=== PATIENT | female | born 1960 | race Caucasian/White ===

== ENCOUNTER 2023-03-27 02:06 | Inpatient (IN) | payer OTHER, SELFPAY ==
[2023-03-27] VITALS (46 sets, daily range): BP systolic 127–173; BP diastolic 72–98; PULSE 88–136; RESP 18–33; TEMP 36.8–37.5; O2SAT 89–100
--- NOTE | 2023-03-27 | ECHO_ITS ---
Patient Info Name: Carly Oliveira Age: 62 years : 1960 Gender: Female Ht: 67 in Wt: 106 lbs BSA: 1.49 m2 BP: 152 / 98 mmHg Heart Rhythm: Sinus Rhythm, Tachycardia Technical Quality: Fair Exam Date: 03/27/2023 2:44 PM Exam Location: Echo Lab Patient Status: Inpatient Admit Date: 03/27/2023 Staff Ordering Physician: Raj Metcalf MD Property Claims Adjuster: Lupe Jim RDCS Attending Provider: Felecai Ledezma DO Exam Type: CA echo doppler color flow Study Info Indications - elevated bnp Complete two-dimensional, color flow and Doppler transthoracic echocardiogram is performed. Summary 1. Complete two-dimensional, color flow and Doppler transthoracic echocardiogram is performed. 2. Technically difficult study. 3. Left ventricular chamber dimension is normal. 4. Left ventricular systolic function is normal, estimated at 55-60%. 5. There is no increased left ventricular wall thickness. 6. The left ventricular diastolic function is abnormal. 7. There is trace mitral valve regurgitation. 8. There is trace tricuspid valve regurgitation. 9. Mild pulmonary hypertension, estimated pulmonary arterial systolic pressure is 43 mmHg. Left Ventricle Left ventricular chamber dimension is normal. Left ventricular systolic function is normal, estimated at 55-60%. There is no increased left ventricular wall thickness. The left ventricular diastolic function is abnormal. Technically difficult study. Right Ventricle Right ventricular chamber dimension is normal. Right ventricular systolic function is normal. Left Atria Left atrial chamber dimension is normal. Right Atria Right atrial chamber dimension is normal. Aortic Valve The aortic valve is probable trileaflet. There is mild aortic valve sclerosis. There is no aortic valve stenosis. There is no aortic valve regurgitation. Pulmonic Valve The pulmonic valve is not well visualized. Mitral Valve The mitral valve has normal leaflets. There is trace mitral valve regurgitation. The mitral valve annulus is mildly calcified. Tricuspid Valve The tricuspid valve leaflets are normal. There is trace tricuspid valve regurgitation. Mild pulmonary hypertension, estimated pulmonary arterial systolic pressure is 43 mmHg. Pericardium/Pleural The pericardium appears normal. There is trivial pericardial effusion. Inferior Vena Cava Normal inferior vena cava with >50% collapse upon inspiration consistent with normal right atrial pressure, 5 mmHg. Aorta The aortic root size at the sinus of Valsalva is normal. There is mild aortic atherosclerosis. Left Ventricular Outflow Tract Name Value Normal LVOT 2D LVOT Diameter 1.8 cm LVOT Doppler LVOT Peak Gradient 3 mmHg LVOT Mean Gradient 1 mmHg LVOT VTI 12 cm LVOT VTI/AV VTI Ratio 0.6 LVOT Stroke Volume 30 ml LVOT CO 3.6 l/min LVOT CI 2.4 l/min/m2 Pulmonic Valve Name Value Normal ---
--- NOTE | ~2023-03-27 | XR_ITS ---
Portable chest x-ray Comparison: None Clinical History: Dyspnea Findings: Lungs are clear, without focal consolidation or pleural effusion. Suspected COPD. Cardiom ediastinal silhouette is unremarkable. Bones and soft tissues are unremarkable. Impression: Clear lungs. Probable COPD. Reviewed, dictated and finalized at [facility]. T SUPERVISOR FILM PROCESSING Impression: Clear lungs. Probable COPD.
--- NOTE | ~2023-03-27 | XR_ITS ---
EXAMINATION: XR chest 1V portable DATE: 03/30/2023 13:40 INDICATION: Shortness of breath. TECHNIQUE: A single frontal view of the chest was obtained. COMPARISON: Chest 03/28/23 FINDINGS: The lungs are hyperexpanded, consistent with chronic obstructive pulmonary disease. No pleu ral effusion or pneumothorax. The heart size is normal. There are old healed bilateral rib fractures. IMPRESSION: 1. Hyperexpanded lungs, consistent with chronic obstructive pulmonary disease. Reviewed, dictated and finalized at location A. COUNTER
--- NOTE | ~2023-03-27 | US_ITS ---
EXAMINATION: US right upper quadrant DATE: 03/27/2023 17:04 INDICATION: Right upper quadrant abdominal pain TECHNIQUE: Multiple grayscale and Doppler ultrasound images of the abdomen were obtained. COMPARISON: None FINDINGS: The pancreatic head and body are normal in appearance. The pancreatic tail is not visualized. Liver has normal echogenicity and contour, with a smooth surface. No liver lesion identified. No intrahepat ic biliary duct dilation suspected. Portal venous flow was seen in the hepatopetal, normal direction and has normal Doppler waveform. Atherosclerotic calcifications along the normal caliber proximal to mid abdominal aorta. The visualized proximal to mid inferior vena cava is normal. The gallbladder is normal in appearance. There is no shadowing cholelithiasis. Small amount of mobile echogenic non sha dowing sludge along the dependent gallbladder wall. The common bile duct measures 2 mm, which is norm al. Sonographic Pagan sign was reported as negative by the olericulture teacher.Right kidney measures 8.6 x 4 .7 x 5.3 cm with normal contour and echogenicity and no hydronephrosis. IMPRESSION: 1. Small amount of mobile sludge in the otherwise normal gallbladder. Reviewed, dictated and finalized at location A. OR MECHANICAL DEVELOPMENT ENGINEER
--- NOTE | ~2023-03-27 | XR_ITS ---
Portable chest x-ray Comparison: 03/27/2023 Clinical History: COPD exacerbation Findings: Probable small bilateral pleural effusions. COPD pattern present in the lungs. Cardiomedi astinal silhouette is stable. Bones and soft tissues are unremarkable. Impression: COPD. Probable small bilateral pleural effusions. Reviewed, dictated and finalized at [facility]. PHYSICIAN Impression: COPD. Probable small bilateral pleural effusions.
--- NOTE | 2023-03-27 02:17 | ECG_ITS ---
Measurements Intervals [place] Rate: 114 P: 81 FL: 126 QRS: 92 QRSD: 90 T: 12 QT: 290 QTc: 399 Interpretive Statements SINUS TACHYCARDIA RIGHT AXIS DEVIATION POSSIBLE RIGHT ATRIAL ENLARGEMENT BORDERLINE ST-T WAVE ABNORMALITY- INFERIOR LEADS BASELINE WANDER- I, II, III, AVL, AVF, V4-V6 ABNORMAL ECG NO PREVIOUS ECG AVAILABLE FOR COMPARISON Electronically Signed On 03-27-2023 7:01:27 PAPER SLITTER by Greg Vargas D.O.
[2023-03-27] MEDS: ALBUTEROL SULFATE NEB 2.5 MG/3 ML INH INHALATION ×4 (02:30→20:54)
[2023-03-27] MEDS: IPRATROPIUM BR 0.02% INH SOLN 0.5 MG/2.5 ML VIAL INHALATION ×4 (02:30→20:55)
[2023-03-27 02:37] LABS: Basophils Percent Auto 0.1 % (0.2-1.2); Hematocrit 42.8 % (37.0-47.0); Hemoglobin 12.2 g/dL (12.0-15.0); Immature Granulocyte Absolute 0.08 K/mm3 (0.00-0.031); Immature Granulocyte Percent A 0.8 % (0-0.5); Lymphocytes Absolute Auto 0.96 K/mm3 (0.9-3.2); Lymphocytes Percent Auto 9.7 % (18.3-44.2); Mean Corpuscular HGB Conc 28.5 g/dl (32-36); Mean Corpuscular Hemoglobin 28.4 pg (26-34); Mean Corpuscular Volume 99.8 fl (80-100); Mean Platelet Volume 9.8 fl (7.4-10.4); Monocytes Absolute Auto 1.3 K/mm3 (0.1-0.6); Monocytes Percent Auto 12.9 % (2.6-8.5); Neutrophils Absolute Auto 7.6 K/mm3 (1.3-6.7); Neutrophils Percent Auto 76.5 % (45.5-73.1); Platelet Count Result 269 k/mm3 (150-375); Red Blood Count 4.29 M/mm3 (4.2-5.4); Red Cell Distribution Width 12.6 % (11.5-14.5); White Blood Count 9.9 K/mm3 (4.5-10.0)
--- NOTE | 2023-03-27 02:40 | PC.NURSE ---
Respiratory in room to place patient on bipap.
--- NOTE | 2023-03-27 02:45 | ED.GENADULT ---
HPI - General Adult General Chief complaint: Shortness of Breath/Dyspnea Stated complaint: SOB Time Seen by Provider: 03/27/23 02:23 History of Present Illness HPI narrative: Patient is a 62-year-old female who presents emergency department with chief complaint of shortness of breath. Patient reports that she has prior history of COPD and reports that she has been getting progressively short of breath at home. The patient states that got worse this evening and reports that this evening when EMS arrived she was saturating in the 80s. The patient was placed on non-rebreather by EMS the patient was reported to have been admitted at [place] recently the ICU for a COPD exacerbation Related Data Home Medications Medication Instructions Recorded Confirmed albuterol sulfate 90 mcg/actuation 2 puff inhalation Q6H PRN sob 03/27/23 03/27/23 aerosol inhaler apixaban 5 mg tablet (Eliquis) 5 mg PO BID 03/27/23 03/27/23 atorvastatin 80 mg tablet 80 mg PO HS 03/27/23 03/27/23 budesonide 0.5 mg/2 mL suspension mg 03/27/23 for nebulization gabapentin 300 mg capsule 300 mg PO TID 03/27/23 03/27/23 losartan 50 mg tablet 50 mg PO DAILY 03/27/23 03/27/23 metoprolol succinate 50 mg 50 mg PO DAILY 03/27/23 03/27/23 tablet,extended release 24 hr venlafaxine 37.5 mg tablet 37.5 mg PO BID 03/27/23 03/27/23 Allergies Allergy/AdvReac Type Severity Reaction Status Date / Time Penicillins Allergy Other Verified 03/27/23 03:12 Review of Systems Review of Systems: A 10 system review of systems was completed on the patient and is negative except for what is stated in the HPI. Nursing and ancillary documentation was reviewed. Exam Narrative: GENERAL: Well-appearing, well-nourished, and in no acute distress. HEAD: Normocephalic, atraumatic. EYES: PERRLA and EOMI. ENT: Nares clear, no rhinorrhea or epistaxis. Mucous membranes moist. NECK: Supple. CHEST: Clear to auscultation. No respiratory distress. HEART: Regular rate and rhythm. No murmur heard. Normal peripheral pulses. ABDOMEN: Soft, nontender, nondistended, normal active bowel sounds. EXTREMITIES: Normal range of motion. No edema. SKIN: Warm, dry, no rash. NEURO: No focal deficits. Alert and oriented x3. PSYCH: Normal mood and affect. Course Vital Signs Vital signs: Vital Signs Pulse Rate 116 H 03/27/23 02:07 Respiratory Rate 28 H 03/27/23 02:07 Blood Pressure 158/90 H 03/27/23 02:07 Pulse Oximetry 100 03/27/23 02:07 Oxygen Delivery Non-Rebreather Mask 03/27/23 02:07 Oxygen Flow Rate 15 03/27/23 02:07 Temperature 36.8 C 03/27/23 05:01 Pulse Rate 135 H 03/27/23 06:24 Respiratory Rate 22 H 03/27/23 06:24 Blood Pressure 149/97 H 03/27/23 06:24 Pulse Oximetry 96 03/27/23 06:24 Oxygen Delivery BiPAP 03/27/23 05:13 Oxygen Flow Rate 15 03/27/23 02:16 Medical Decision Making MDM Narrative Medical decision making narrative: Differential diagnosis includes acute hypercapnic respiratory failure, Laboratory studies were obtained on the patient showed a pH of 7.197 with a pCO2 of 137 the patient was started on BiPAP and after 1 hour pH did improve somewhat to 7.202 and a pCO2 has come down to a 122 the patient's respiratory rate was increased on the AVAPS setting and the case was discussed with both the hospitalist and the political anthropologist. Vital Signs Vital Signs: Vital Signs Pulse Rate 116 H 03/27/23 02:07 Respiratory Rate 28 H 03/27/23 02:07 Blood Pressure 158/90 H 03/27/23 02:07 Pulse Oximetry 100 03/27/23 02:07 Oxygen Delivery Non-Rebreather Mask 03/27/23 02:07 Oxygen Flow Rate 15 03/27/23 02:07 Temperature 36.8 C 03/27/23 05:01 Pulse Rate 135 H 03/27/23 06:24 Respiratory Rate 22 H 03/27/23 06:24 Blood Pressure 149/97 H 03/27/23 06:24 Pulse Oximetry 96 03/27/23 06:24 Oxygen Delivery BiPAP 03/27/23 05:13 Oxygen Flow Rate 15 03/27/23 02:16 Lab Data 03/27/23 02:28
[2023-03-27 02:51] LABS: Lactic Acid Reflex 1.2 mmol/L (0.7-2.0)
[2023-03-27 02:53] LABS: INR 1.1; Partial Thromboplastin Time 31.6 SECONDS (22.3-36.8); Prothrombin Time 15.1 Seconds (11.1-14.7)
[2023-03-27 03:02] LABS: Alveolar/Arterial O2 Gradient 296.3 mmHg; Base Excess ABG 17.8 mEq/l (+/-2.0); Carboxyhemoglobin 0.5 % THb (0-2.0); Fractional Inspired Oxygen 100 %; HCO3 ABG 52.1 mEq/l (22.0-26.0); Methemoglobin ABG 0.4 %THb (0-1.5); Oxygen Content ABG 18.9 %vol (16.0-22.0); Oxygen Saturation ABG 99.4 % (95.0-100.0); Oxyhemoglobin 98.3 % THb (90.0-100.0); PO2 ABG 279.5 mmHg (80.0-100.0); Reduced Hemoglobin 0.8 %THb (0-5.0); Total Hemoglobin 13.2 g/dL (12.0-18.0)
[2023-03-27 03:03] LABS: NT Pro B Type Natriuretic Pept 999 pg/mL (19.9-100); Troponin I < 0.012 ng/mL (0.000-0.034)
[2023-03-27 03:07] LABS: PCO2 ABG 137.2 mmHg (35.0-45.0); pH ABG 7.197 (7.350-7.450)
[2023-03-27 03:08] LABS: Device NON-REBREATHER MASK; Site Drawn RIGHT BRACHIAL
[2023-03-27 03:08] LABS: Procalcitonin 0.1 ng/mL
[2023-03-27 03:13] LABS: Influenza A QL RT-PCR Negative (Negative); Influenza B QL RT-PCR Negative (Negative); RSV RNA, RT-PCR Negative (Negative); SARS-CoV-2 RNA PCR Negative (Negative)
[2023-03-27] MEDS: methylPREDNISolone SOD SUCC 125 MG VIAL IV PUSH (03:13)
[2023-03-27 03:20] LABS: Alanine Aminotransferase 20 U/L (6-35); Albumin Level 4.1 g/dL (3.5-5.1); Alkaline Phosphatase 89 U/L (38-126); Aspartate Amino Transferase 41 U/L (14-36); Bilirubin,Total 0.9 mg/dL (0.2-1.3); Blood Urea Nitrogen 29 mg/dL (7-17); Calcium 9.9 mg/dL (8.4-10.2); Carbon Dioxide > 40 mmol/L (22-30); Chloride 94 mmol/L (98-107); Estimated CRCL calculation 74 ml/min; Estimated Glomerular Filt Rate > 60; Glucose 166 mg/dL (65-110); Potassium 4.2 mmol/L (3.4-5.0); Sodium 147 mmol/L (137-145)
[2023-03-27] MEDS: LORazepam INJ (*CRX) 2 MG/ML VIAL 0.5 MG IV PUSH (03:51)
[2023-03-27 04:30] LABS: Alveolar/Arterial O2 Gradient 222.4 mmHg; Base Excess ABG 13.9 mEq/l (+/-2.0); Fractional Inspired Oxygen 65 %; HCO3 ABG 47.2 mEq/l (22.0-26.0); Oxygen Saturation ABG 96.2 % (95.0-100.0); Oxyhemoglobin 96.2 % THb (90.0-100.0); PO2 ABG 107.4 mmHg (80.0-100.0); PO2 FiO2 Ratio Arterial Blood 1.65 %; Total Hemoglobin 13.2 g/dL (12.0-18.0)
[2023-03-27 04:32] LABS: PCO2 ABG 122.9 mmHg (35.0-45.0); Site Drawn RIGHT BRACHIAL; pH ABG 7.202 (7.350-7.450)
[2023-03-27 04:33] LABS: Device NON-INVASIVE VENT; Non-Invasive Vent Rate 20 /MIN
--- NOTE | 2023-03-27 06:47 | ADMGEN ---
This patient, Carly Oliveira, was admitted to Intensive Care Unit-5. Patient/family oriented to hospital policies and general routines including ID bracelet, bed and alarms, visiting hours, pain management, procedures, bathroom and other care routines, personal items, smoking policy, room service/diet, and visiting hours. Information on how to activate the Rapid Response Team has been discussed. Patient/Family are encouraged to report perceived risks to care and to ask questions if they do not understand what they are told or what they should do.
[2023-03-27 07:05] LABS: Influenza A QL RT-PCR Negative (Negative); Influenza B QL RT-PCR Negative (Negative); RSV RNA, RT-PCR Negative (Negative); SARS-CoV-2 RNA PCR Negative (Negative)
--- NOTE | 2023-03-27 08:03 | WPDCNINT ---
Assessment and Plan Assessment and plan (1) Acute and chronic respiratory failure, unspecified whether with hypoxia or hypercapnia: Code(s): J96.20 - Acute and chronic respiratory failure, unspecified whether with hypoxia or hypercapnia Status: Acute Assessment and Plan: Acute on chronic hypercarbic and hypoxic respiratory failure secondary to COPD exacerbation Patient now on NIPPV with some improvement in her ABG. She is awake and protecting airway. Will continue AVAPS for now Repeat ABG later. Patient at risk of requiring intubation if does not improve or further deteriorate Chest x-ray reviewed and does not show any significant infiltrate. WBC is normal and she is afebrile. Obtain cultures and start azithromycin for COPD exacerbation Solu-Medrol, bronchodilators, PCR COVID flu and RSV negative (2) COPD exacerbation: Code(s): J44.1 - Chronic obstructive pulmonary disease with (acute) exacerbation Status: Acute Assessment and Plan: See above (3) Abnormal EKG: Code(s): R94.31 - Abnormal electrocardiogram [ECG] [EKG] Status: Acute Assessment and Plan: 1st troponin negative, patient denies any chest pain Check echocardiogram Continue serial troponin Patient is already anticoagulated and is on statin and beta-jessica will be continued (4) Sinus tachycardia: Code(s): R00.0 - Tachycardia, unspecified Status: Acute Assessment and Plan: Continue p.o. beta-jessica (5) Hypertension: Code(s): I10 - Essential (primary) hypertension Status: Acute Assessment and Plan: Continue beta-jessica losartan and add p.r.n. Lopressor (6) Atrial fibrillation: Code(s): I48.91 - Unspecified atrial fibrillation Status: Acute Assessment and Plan: Patient reports history of atrial fibrillation but currently in sinus tachycardia. Continue beta-jessica and Eliquis (7) Coronary disease: Code(s): I25.10 - Atherosclerotic heart disease of [place] coronary artery without angina pectoris Status: Acute Assessment and Plan: Patient reports history of coronary disease although unable to provide any details EKG reviewed Check troponins Continue anticoagulation statin beta-jessica and ARB Obtain records from [facility] Plan DVT prophylaxis -Eliquis Nutrition -NPO at this time Code Status - Full Code Total Critical Care Time -35 minutes Due to a high probability of clinically significant, life threatening deterioration, the patient required my highest level of preparedness to intervene emergently and I personally spent this critical care time directly and personally managing the patient. This critical care time included obtaining a history; examining the patient; pulse oximetry; ordering and review of studies; arranging urgent treatment with development of a management plan; evaluation of patient's response to treatment; frequent reassessment; and discussions with other providers. It was exclusive of separately billable procedures and treating other patients and teaching time. Please see Assessment and Plan section and the rest of the note for further information on patient assessment and treatment Cotton Opener Consult Note Consult date: 03/27/23 Reason for consult: Respiratory failure HPI: Carly Oliveira is a 62 year old female with past medical history of COPD presented for the 1st time at [facility] last night with chief complaint of shortness of breath from home. Reported that she has been getting progressively short of breath and when EMS brought her they found her to be hypoxic and hypercarbic on ABG. Patient initially was on non-rebreather and was switched to AVAPS. Patient now admitted to ICU on BiPAP mask and history is limited. She states she has been feeling short of breath for last 4 days. She wears for oxygen at home at 4 L and wears a CPAP or a BiPAP at night. She has been having cough with greenish sputum.
[2023-03-27] MEDS: AZITHROMYCIN 500 MG/NS 250 ML 500 MG/250 ML BAG 250 MG IVPB (08:23)
[2023-03-27] MEDS: APIXABAN 5 MG TABLET PO ×2 (08:23→17:01)
[2023-03-27] MEDS: methylPREDNISolone SOD SUCC 125 MG VIAL 60 MG IV PUSH (08:23)
[2023-03-27] MEDS: VENLAFAXINE HCL 37.5 MG TABLET PO ×2 (08:31→17:01)
[2023-03-27] MEDS: METOPROLOL SUCCINATE EXT REL 50 MG TABCR PO (08:31)
--- NOTE | 2023-03-27 09:38 | PM.IMHP ---
H&P: HPI History of Present Illness Date/Time: 03/27/23 09:38 Chief Complaint: Shortness of breath Narrative: 62yo female with COPD, CAD, chronic resp failure, AFib and HTN here for shortness of breath and found to have respiratory failure. Patient is alert and oriented but history is difficult; patient on bipap, patient appears confused about details of her hx. She wears 3L O2 at rest and 4L with activity. She does have VIK (?) and supposed to wear NIV at night but could not tolerate. She was recently hospitalized Jan-Feb time frame for 6 weeks. She is unclear why she was hospitalized but did require intubation and had cardiac arrest 'four times'. She was doing well up until 3-4 days ago when she developed shortness of breath and cough productive of green sputum. She developed fever and chills. She did not contact a health care provider and has not been on antibiotics. She has been using decongestions and increasing fluid intake. She takes neb treatments 3-4x/day chronically and no change when she was ill. She has had the PNA and Influenza vaccines. Also with episodes of choking and food sticking sensation but long standing and without change. No hx of CVA or seizures. Having nausea past few days but no vomiting or diarrhea. No dysuria or hemautia. No Chest pain. Her symptoms worsened and EMS contacted. No EMS record in the chart. By the notes, SpO2 80%'s. She was brought to the ED for evaluation. In the ED, she was tachycardia (116), tachypneic (28) and hypoxic (100% on NRBM). ABG 7.197/137/279 NRBM. BiPAP started with ABG 7.20/123/107. Influenza/RSV/COVD PCR negative. EKG sinus tach, RAD and possible JANE with borderline ST-T wave change inferior leads. CXR showing clear lungs and COPD. She was started on BiPAP. Nebs given. Solu-Medrol started. Azithromycin started. Review of Systems Review of Systems: All systems reviewed & are unremarkable except as noted in HPI and below PMFSH Past Medical History Medical History (Updated 03/27/23 @ 11:10 by Tyree Azevedo MD) Atrial fibrillation Chronic respiratory failure COPD (chronic obstructive pulmonary disease) Coronary disease Depression Hypertension PAD (peripheral artery disease) Surgical History Surgical History (Updated 03/27/23 @ 10:52 by Tyree Azevedo MD) Hx of peripheral artery bypass Family History Family History (Updated 03/27/23 @ 10:52 by Tyree Azevedo MD) Father Mesothelioma Mother Heart disease Social History Social History (Updated 03/27/23 @ 10:54 by Tyree Azevedo MD) Social History: Patient still smoking up to 3 cigarettes per day. No alcohol or drug use. Full code. Lives at home with son, dtr-in-law and grandchild. Full code. She nominates her son to be the one who would make medical decisions for her if she is unable. Smoking status: Light tobacco smoker Tobacco type: cigarettes Alcohol intake: never Substance use: never Substance use type: does not use Do You Feel Safe in your Home?: Yes Lack of Transportation: No Lack of Food: Never True Current Housing: I Have Housing Concerned About Future Housing: Decline to Answer Difficulty Paying Gas/Electric Bills: Decline to Answer Difficulty Paying for Meds: Decline to Answer Currently Unemployed: Decline to Answer Education: High School Diploma/GED Difficulty w/ Childcare or Family Care: Decline to Answer Spiritual care concerns: No Meds Home Medications and Allergies Home Medications Medication Instructions Recorded Confirmed Type albuterol sulfate 90 mcg/actuation 2 puff inhalation Q6H PRN sob 03/27/23 03/27/23 History aerosol inhaler apixaban 5 mg tablet (Eliquis) 5 mg PO BID 03/27/23 03/27/23 History atorvastatin 80 mg tablet 80 mg PO HS 03/27/23 03/27/23 History budesonide 0.5 mg/2 mL suspension 0.5 mg inhalation BID 03/27/23 03/27/23 History for nebulization gabapentin 300 mg capsule 300 mg PO TID 03/27/23 03/27/23 History los
[2023-03-27] MEDS: ASPIRIN 325 MG ENTERIC TABLET PO (09:41)
[2023-03-27 11:16] LABS: Appearance Urine Clear (Clear); Bacteria Urine None Seen /hpf; Bilirubin Urine Negative (Negative); Blood Urine 2+ (Negative); Color Urine Yellow (Yellow); Glucose Urine UA Negative (Negative); Granular Casts Urine Present /lpf; Hyaline Casts Urine Present /lpf; Ketones Urine 1+ mg/dL (Negative); Leukocyte Esterase Ur Negative LEU/UL (Negative); Nitrate Urine Negative (Negative); Protein Urine 2+ mg/dL (Negative); Specific Grav Ur 1.016 (1.001-1.035); Squamous Epithelial Cell Urine Few /hpf (Few); Transitional Epi Cells Urine Present /hpf (None Seen); WBC Urine 0-5 /hpf
[2023-03-27 11:17] LABS: Add Urine Microscopic? YES
[2023-03-27 11:21] LABS: Alveolar/Arterial O2 Gradient 70.6 mmHg; Base Excess ABG 12.6 mEq/l (+/-2.0); Fractional Inspired Oxygen 30 %; HCO3 ABG 39.6 mEq/l (22.0-26.0); Oxygen Content ABG 16.5 %vol (16.0-22.0); Oxygen Saturation ABG 93.7 % (95.0-100.0); Oxyhemoglobin 93.6 % THb (90.0-100.0); PO2 ABG 69.6 mmHg (80.0-100.0); PO2 FiO2 Ratio Arterial Blood 2.32 %; Total Hemoglobin 12.5 g/dL (12.0-18.0); pH ABG 7.418 (7.350-7.450)
[2023-03-27 11:31] LABS: Device NON-INVASIVE VENT; Modified Allen's Test Pass; PCO2 ABG 62.7 mmHg (35.0-45.0); Site Drawn RIGHT RADIAL
[2023-03-27 11:32] LABS: Non-Invasive Expiratory Pressure 6 CMH2O; Non-Invasive Vent Rate 28 /MIN
[2023-03-27 12:32] LABS: Lipase 26 U/L (23-300)
[2023-03-27 12:39] LABS: Troponin I < 0.012 ng/mL (0.000-0.034)
[2023-03-27] MEDS: METOPROLOL TARTRATE INJ 5 MG/5 ML VIAL IV PUSH (17:00)
[2023-03-27] MEDS: ATORVASTATIN 40 MG TABLET 80 MG PO (20:30)
[2023-03-27] MEDS: LOSARTAN POTASSIUM 50 MG TABLET PO (20:31)
[2023-03-28] VITALS (30 sets, daily range): BP systolic 122–169; BP diastolic 69–94; PULSE 93–132; RESP 19–35; TEMP 36.4–37.2; O2SAT 90–100; BMI 16.9
[2023-03-28] MEDS: ALBUTEROL SULFATE NEB 2.5 MG/3 ML INH INHALATION ×4 (02:11→19:54)
[2023-03-28] MEDS: IPRATROPIUM BR 0.02% INH SOLN 0.5 MG/2.5 ML VIAL INHALATION ×4 (02:11→19:54)
[2023-03-28 04:49] LABS: Hematocrit 40.4 % (37.0-47.0); Hemoglobin 11.6 g/dL (12.0-15.0); Mean Corpuscular HGB Conc 28.7 g/dl (32-36); Mean Corpuscular Hemoglobin 28.3 pg (26-34); Mean Corpuscular Volume 98.5 fl (80-100); Mean Platelet Volume 9.4 fl (7.4-10.4); Platelet Count Result 293 k/mm3 (150-375); Red Cell Distribution Width 12.6 % (11.5-14.5); White Blood Count 11.8 K/mm3 (4.5-10.0)
[2023-03-28 05:00] LABS: Alanine Aminotransferase 20 U/L (6-35); Albumin Level 3.6 g/dL (3.5-5.1); Alkaline Phosphatase 102 U/L (38-126); Aspartate Amino Transferase 29 U/L (14-36); Bilirubin,Total 0.6 mg/dL (0.2-1.3); Blood Urea Nitrogen 28 mg/dL (7-17); Calcium 9.5 mg/dL (8.4-10.2); Carbon Dioxide > 40 mmol/L (22-30); Chloride 93 mmol/L (98-107); Estimated CRCL calculation 56 ml/min; Estimated Glomerular Filt Rate > 60; Glucose 151 mg/dL (65-110); Magnesium 2.3 mg/dL (1.6-2.3); Potassium 4.1 mmol/L (3.4-5.0); Sodium 144 mmol/L (137-145)
[2023-03-28 05:49] LABS: Alveolar/Arterial O2 Gradient 87.3 mmHg; Base Excess ABG 18.7 mEq/l (+/-2.0); Carboxyhemoglobin 0.3 % THb (0-2.0); Fractional Inspired Oxygen 36 %; HCO3 ABG 49.8 mEq/l (22.0-26.0); Methemoglobin ABG 0.4 %THb (0-1.5); Oxygen Content ABG 15.2 %vol (16.0-22.0); PO2 ABG 54.4 mmHg (80.0-100.0); PO2 FiO2 Ratio Arterial Blood 1.51 %; Reduced Hemoglobin 16.3 %THb (0-5.0); pH ABG 7.319 (7.350-7.450)
[2023-03-28 06:03] LABS: Oxygen Saturation ABG 93.8 % (95.0-100.0); Oxyhemoglobin 93.3 % THb (90.0-100.0)
[2023-03-28 06:09] LABS: Modified Allen's Test Pass; Site Drawn RIGHT RADIAL
[2023-03-28 06:10] LABS: Device NASAL CANNULA
[2023-03-28] MEDS: AZITHROMYCIN 500 MG/NS 250 ML 500 MG/250 ML BAG 250 MG IVPB (08:07)
[2023-03-28] MEDS: VENLAFAXINE HCL 37.5 MG TABLET PO ×2 (08:08→16:35)
[2023-03-28] MEDS: ASPIRIN 325 MG ENTERIC TABLET PO (08:08)
[2023-03-28] MEDS: LOSARTAN POTASSIUM 50 MG TABLET PO (08:08)
[2023-03-28] MEDS: methylPREDNISolone SOD SUCC 125 MG VIAL 60 MG IV PUSH (08:08)
[2023-03-28] MEDS: APIXABAN 5 MG TABLET PO ×2 (08:08→16:35)
[2023-03-28] MEDS: METOPROLOL SUCCINATE EXT REL 50 MG TABCR PO (08:09)
--- NOTE | 2023-03-28 11:04 | PC.NURSE ---
pt states he is leaving AMA, his mother called and ask id we could knock him out medically to keep him here. stated that was not an option, pt states he will be going home today
--- NOTE | 2023-03-28 12:03 | WPDINTPN ---
Progress Note: A&P Assessment and Plan (1) Acute and chronic respiratory failure, unspecified whether with hypoxia or hypercapnia: Code(s): J96.20 - Acute and chronic respiratory failure, unspecified whether with hypoxia or hypercapnia Status: Acute Assessment and Plan: Acute on chronic hypercarbic and hypoxic respiratory failure secondary to COPD exacerbation -patient noncompliant with NIPPV, pCO2 worsened this morning causing respiratory acidosis. Currently awake and protecting her airway. Will continue AVAPS for now -encourage patient to wear NIPPV this morning, will repeat ABGs. -Patient at risk of requiring intubation if does not improve or further deteriorate -chest x-ray this morning is clear -continue azithromycin for COPD exacerbation -will increase Solu-Medrol to 40 mg IV q.6 hours, bronchodilators, - add Pulmicort -PCR COVID flu and RSV negative (2) COPD exacerbation: Code(s): J44.1 - Chronic obstructive pulmonary disease with (acute) exacerbation Status: Acute Assessment and Plan: See above (3) Abnormal EKG: Code(s): R94.31 - Abnormal electrocardiogram [ECG] [EKG] Status: Acute Assessment and Plan: Troponins negative x2, patient denies any chest pain Patient is already anticoagulated with Eliquis and is on statin and beta-jessica 03/27/2023 echocardiogram Summary ? 1. Complete two-dimensional, color flow and Doppler transthoracic echocardiogram is performed. ? 2. Technically difficult study. ? 3. Left ventricular chamber dimension is normal. ? 4. Left ventricular systolic function is normal, estimated at 55-60%. ? 5. There is no increased left ventricular wall thickness. ? 6. The left ventricular diastolic function is abnormal. ? 7. There is trace mitral valve regurgitation. ? 8. There is trace tricuspid valve regurgitation. ? 9. Mild pulmonary hypertension, estimated pulmonary arterial systolic pressure is 43 mmHg. (4) Sinus tachycardia: Code(s): R00.0 - Tachycardia, unspecified Status: Acute Assessment and Plan: Continue p.o. beta-jessica (5) Hypertension: Code(s): I10 - Essential (primary) hypertension Status: Acute Assessment and Plan: Continue beta-jessica losartan and add p.r.n. Lopressor (6) Atrial fibrillation: Code(s): I48.91 - Unspecified atrial fibrillation Status: Acute Assessment and Plan: Patient reports history of atrial fibrillation but currently in sinus tachycardia. Continue beta-jessica and Eliquis (7) Coronary disease: Code(s): I25.10 - Atherosclerotic heart disease of [place] coronary artery without angina pectoris Status: Acute Assessment and Plan: Patient reports history of coronary disease although unable to provide any details EKG reviewed Troponins negative x2 Continue anticoagulation with Eliquis, continue statin beta-jessica and ARB Obtain records from [facility] Plan DVT prophylaxis -Eliquis Nutrition -NPO at this time Code Status - Full Code Total Critical Care Time -33 minutes Due to a high probability of clinically significant, life threatening deterioration, the patient required my highest level of preparedness to intervene emergently and I personally spent this critical care time directly and personally managing the patient. This critical care time included obtaining a history; examining the patient; pulse oximetry; ordering and review of studies; arranging urgent treatment with development of a management plan; evaluation of patient's response to treatment; frequent reassessment; and discussions with other providers. It was exclusive of separately billable procedures and treating other patients and teaching time. Please see Assessment and Plan section and the rest of the note for further information on patient assessment and treatment Subjective Date/time seen: 03/28/23 12:03 Interval history: Reason for consult: Acute hyperca
[2023-03-28] MEDS: methylPREDNISolone SOD SUCC 125 MG VIAL IV PUSH (12:45)
[2023-03-28 12:58] LABS: Alveolar/Arterial O2 Gradient 56.4 mmHg; Base Excess ABG 18.5 mEq/l (+/-2.0); Fractional Inspired Oxygen 30 %; HCO3 ABG 46.1 mEq/l (22.0-26.0); Oxygen Content ABG 17.2 %vol (16.0-22.0); Oxygen Saturation ABG 95.6 % (95.0-100.0); Oxyhemoglobin 94.7 % THb (90.0-100.0); Total Hemoglobin 12.9 g/dL (12.0-18.0); pH ABG 7.451 (7.350-7.450)
[2023-03-28 13:02] LABS: Device BIPAP; PCO2 ABG 67.7 mmHg (35.0-45.0); Site Drawn RIGHT BRACHIAL
[2023-03-28 13:04] LABS: Expiratory Pressure 6 cmH2O
[2023-03-28] MEDS: BUDESONIDE RESPULE NEB 0.5 MG/2 ML AMP INHALATION ×2 (14:37→19:54)
[2023-03-28] MEDS: methylPREDNISolone SOD SUCC 40 MG VIAL IV PUSH ×2 (17:35→23:06)
[2023-03-28] MEDS: ATORVASTATIN 40 MG TABLET 80 MG PO (20:25)
[2023-03-28] MEDS: LABETALOL HCL INJ 100 MG/20 ML VIAL 20 MG IV PUSH (20:25)
[2023-03-28] MEDS: BISACODYL 5 MG TABLET EC PO (21:19)
[2023-03-29] VITALS (26 sets, daily range): BP systolic 123–159; BP diastolic 75–102; PULSE 90–116; RESP 15–29; TEMP 36.3–37; O2SAT 95–100
[2023-03-29] MEDS: ALBUTEROL SULFATE NEB 2.5 MG/3 ML INH INHALATION ×4 (01:55→20:30)
[2023-03-29] MEDS: IPRATROPIUM BR 0.02% INH SOLN 0.5 MG/2.5 ML VIAL INHALATION ×4 (01:55→20:30)
[2023-03-29 04:40] LABS: Basophils Percent Auto 0.5 % (0.2-1.2); Eosinophils Percent Auto 0.5 % (0-4.4); Hematocrit 40.4 % (37.0-47.0); Hemoglobin 11.7 g/dL (12.0-15.0); Immature Granulocyte Absolute 0.07 K/mm3 (0.00-0.031); Immature Granulocyte Percent A 0.8 % (0-0.5); Lymphocytes Percent Auto 14.4 % (18.3-44.2); Mean Corpuscular Hemoglobin 28.5 pg (26-34); Mean Corpuscular Volume 98.3 fl (80-100); Mean Platelet Volume 9.2 fl (7.4-10.4); Monocytes Absolute Auto 0.6 K/mm3 (0.1-0.6); Monocytes Percent Auto 6.6 % (2.6-8.5); Neutrophils Absolute Auto 6.5 K/mm3 (1.3-6.7); Neutrophils Percent Auto 77.2 % (45.5-73.1); Platelet Count Result 265 k/mm3 (150-375); Red Blood Count 4.11 M/mm3 (4.2-5.4); Red Cell Distribution Width 12.6 % (11.5-14.5); White Blood Count 8.4 K/mm3 (4.5-10.0)
[2023-03-29 04:42] LABS: Alveolar/Arterial O2 Gradient 58.6 mmHg; Base Excess ABG 14.7 mEq/l (+/-2.0); Carboxyhemoglobin 0.3 % THb (0-2.0); Fractional Inspired Oxygen 30 %; HCO3 ABG 41.4 mEq/l (22.0-26.0); Methemoglobin ABG 0.3 %THb (0-1.5); Oxygen Content ABG 16.8 %vol (16.0-22.0); Oxygen Saturation ABG 96.4 % (95.0-100.0); Oxyhemoglobin 95.2 % THb (90.0-100.0); PO2 ABG 83.7 mmHg (80.0-100.0); PO2 FiO2 Ratio Arterial Blood 2.79 %; Reduced Hemoglobin 4.2 %THb (0-5.0); Total Hemoglobin 12.5 g/dL (12.0-18.0)
[2023-03-29 04:45] LABS: PCO2 ABG 60.9 mmHg (35.0-45.0)
[2023-03-29 04:46] LABS: Device NON-INVASIVE VENT; Modified Allen's Test Pass; Non-Invasive Vent Rate 22 /MIN; Site Drawn LEFT RADIAL
[2023-03-29 04:47] LABS: Non-Invasive Expiratory Pressure 6 CMH2O
[2023-03-29 04:56] LABS: Alanine Aminotransferase 24 U/L (6-35); Albumin Level 3.9 g/dL (3.5-5.1); Alkaline Phosphatase 95 U/L (38-126); Aspartate Amino Transferase 30 U/L (14-36); Bilirubin,Total 0.5 mg/dL (0.2-1.3); Blood Urea Nitrogen 27 mg/dL (7-17); Calcium 9.6 mg/dL (8.4-10.2); Carbon Dioxide > 40 mmol/L (22-30); Chloride 91 mmol/L (98-107); Estimated CRCL calculation 56 ml/min; Estimated Glomerular Filt Rate > 60; Glucose 145 mg/dL (65-110); Magnesium 2.4 mg/dL (1.6-2.3); Potassium 4.2 mmol/L (3.4-5.0); Sodium 145 mmol/L (137-145)
[2023-03-29 05:05] LABS: Platelet Estimate Adequate (Adequate)
[2023-03-29 05:06] LABS: Ovalocytes 1+ (NORMAL); Schistocytes None Seen (NORMAL)
[2023-03-29] MEDS: methylPREDNISolone SOD SUCC 40 MG VIAL IV PUSH (06:14)
[2023-03-29] MEDS: BUDESONIDE RESPULE NEB 0.5 MG/2 ML AMP INHALATION ×2 (07:38→20:30)
[2023-03-29] MEDS: ASPIRIN 325 MG ENTERIC TABLET PO (08:05)
[2023-03-29] MEDS: APIXABAN 5 MG TABLET PO ×2 (08:05→17:01)
[2023-03-29] MEDS: LOSARTAN POTASSIUM 50 MG TABLET PO (08:05)
[2023-03-29] MEDS: VENLAFAXINE HCL 37.5 MG TABLET PO ×2 (08:05→17:01)
[2023-03-29] MEDS: METOPROLOL SUCCINATE EXT REL 50 MG TABCR PO (08:06)
[2023-03-29] MEDS: AZITHROMYCIN 500 MG/NS 250 ML 500 MG/250 ML BAG 250 MG IVPB (08:07)
[2023-03-29] MEDS: polyethylene glycoL 3350 17 GM POWD.PACK PO (08:13)
--- NOTE | 2023-03-29 10:54 | WPDINTPN ---
Progress Note: A&P Assessment and Plan (1) Acute and chronic respiratory failure, unspecified whether with hypoxia or hypercapnia: Code(s): J96.20 - Acute and chronic respiratory failure, unspecified whether with hypoxia or hypercapnia Status: Acute Assessment and Plan: Acute on chronic hypercarbic and hypoxic respiratory failure secondary to COPD exacerbation -patient noncompliant with NIPPV, pCO2 worsened this morning causing respiratory acidosis. Currently awake and protecting her airway. Will continue AVAPS for now -encourage patient to wear NIPPV this morning, will repeat ABGs. -Patient at risk of requiring intubation if does not improve or further deteriorate -chest x-ray this morning is clear -continue azithromycin for COPD exacerbation -continue Solu-Medrol to 40 mg IV q.6 hours (started on 03/28) -continue bronchodilators, -continue Pulmicort -PCR COVID flu and RSV negative -pulmonary consulted (2) COPD exacerbation: Code(s): J44.1 - Chronic obstructive pulmonary disease with (acute) exacerbation Status: Acute Assessment and Plan: See above (3) Abnormal EKG: Code(s): R94.31 - Abnormal electrocardiogram [ECG] [EKG] Status: Acute Assessment and Plan: Troponins negative x2, patient denies any chest pain Patient is already anticoagulated with Eliquis and is on statin and beta-jessica 03/27/2023 echocardiogram Summary ? 1. Complete two-dimensional, color flow and Doppler transthoracic echocardiogram is performed. ? 2. Technically difficult study. ? 3. Left ventricular chamber dimension is normal. ? 4. Left ventricular systolic function is normal, estimated at 55-60%. ? 5. There is no increased left ventricular wall thickness. ? 6. The left ventricular diastolic function is abnormal. ? 7. There is trace mitral valve regurgitation. ? 8. There is trace tricuspid valve regurgitation. ? 9. Mild pulmonary hypertension, estimated pulmonary arterial systolic pressure is 43 mmHg. (4) Sinus tachycardia: Code(s): R00.0 - Tachycardia, unspecified Status: Acute Assessment and Plan: Continue p.o. beta-jessica (5) Hypertension: Code(s): I10 - Essential (primary) hypertension Status: Acute Assessment and Plan: Continue beta-jessica losartan and add p.r.n. Lopressor (6) Atrial fibrillation: Code(s): I48.91 - Unspecified atrial fibrillation Status: Acute Assessment and Plan: Patient reports history of atrial fibrillation but currently in sinus tachycardia. Continue beta-jessica and Eliquis (7) Coronary disease: Code(s): I25.10 - Atherosclerotic heart disease of [place] coronary artery without angina pectoris Status: Acute Assessment and Plan: Patient reports history of coronary disease although unable to provide any details EKG reviewed Troponins negative x2 Continue anticoagulation with Eliquis, continue statin beta-jessica and ARB Obtain records from [facility] Plan DVT prophylaxis -Eliquis Nutrition -NPO at this time Code Status - Full Code Total Critical Care Time -32 minutes May transfer out of the ICU Due to a high probability of clinically significant, life threatening deterioration, the patient required my highest level of preparedness to intervene emergently and I personally spent this critical care time directly and personally managing the patient. This critical care time included obtaining a history; examining the patient; pulse oximetry; ordering and review of studies; arranging urgent treatment with development of a management plan; evaluation of patient's response to treatment; frequent reassessment; and discussions with other providers. It was exclusive of separately billable procedures and treating other patients and teaching time. Please see Assessment and Plan section and the rest of the note for further information on patient assessment and treatment Subjective Date/time se
--- NOTE | 2023-03-29 11:34 | PCFNICU ---
ICU Rounding Note: Pt current nutrition is Soft and Bite Sized, Level 6. Last recorded weight is 50.1 kg, up from 49 kg on admit. Bowel Motility:No BM reported. Labs Reviewed:Glu 145, BUN 27 Meds Noted:Eliquis, Solu-Medrol, Atrovent, Miralax Skin: WNL Additional Notes: Patient on Bipap overnight. Oral Intake about 25% of breakfast today. Diet supplements of Ensure Enlive providing an additional 350 kcals and 20 gms protein. Agree with diet orders. Following daily in ICU rounds. RD will monitor weight labs, skin, oral intake,meds every 5 days.
--- NOTE | 2023-03-29 14:28 | PM.CNPUL ---
Assessment and Plan Assessment and plan (1) COPD exacerbation: Code(s): J44.1 - Chronic obstructive pulmonary disease with (acute) exacerbation Status: Acute Assessment and Plan: This 62-year-old female with known history of COPD, hypoxemic hypercapnic respiratory failure on home ventilatory support presented with shortness of breath related to COPD exacerbation. She had acute on chronic hypercapnic respiratory failure with low pH and very high pCO2. In response to treatment with IV steroids, short-acting bronchodilators antibiotics and BiPAP support patient's respiratory status has improved. Patient no longer requires BiPAP support during the day. on physical exam she appears in mild respiratory distress while on supplemental oxygen, has over-inflated lungs due to advanced emphysema, and no evidence of wheezing. Plan: Will continue with nebulized short-acting bronchodilators antibiotic as prescribed. I have changed BiPAP settings using lower inflating pressure and lower EPAP. The patient should continue with BiPAP support at night and p.r.n. during the day. I also switched patient to oral steroids starting in a.m.. (2) Acute hypercapnic respiratory failure: Code(s): J96.02 - Acute respiratory failure with hypercapnia Status: Acute (3) Coronary disease: Code(s): I25.10 - Atherosclerotic heart disease of [place] coronary artery without angina pectoris Status: Acute (4) Atrial fibrillation: Code(s): I48.91 - Unspecified atrial fibrillation Status: Acute (5) Tobacco abuse: Code(s): Z72.0 - Tobacco use Status: Acute History of Present Illness History of Present Illness Consult date: 03/29/23 Chief complaint: Acute Hypercapnic Respiratory Failure Narrative: This 62-year-old female presented with progressively increasing shortness of breath cough productive of yellow to green phlegm. The patient has advanced COPD with hypoxemic respiratory failure chronically on supplemental oxygen, 3 L at rest and 4 L with activities. She also uses 3 liters/minute at night. Patient is a poor historian. She stated that she had had shortness of breath for 2 days prior to coming to the hospital. She had some wheezing and cough productive of yellow phlegm. She had no fever or chills or chest pain. When evaluated in the emergency room she was found to have a hypercapnic respiratory failure acute on chronic and was transferred to the intensive care unit where she continued treatment with a BiPAP support. Initial blood gases showed a pH of 7.2 and pCO2 over 120. Following treatment for COPD exacerbation with steroids antibiotics short-acting bronchodilators and also BiPAP support the latest blood gases are significantly improved with a pH being 7.45 and pCO2 at 61. Currently the patient is on supplemental oxygen via nasal cannula. She continues to have some shortness of breath but less than before. No previous pulmonary function testing is available. Initial a chest x-ray showed over-inflated lungs with flattened diaphragms and small pleural effusions bilaterally. Past medical history is also significant for coronary artery disease, atrial fibrillation and hypertension. Reportedly the patient was hospitalized for an extended period from January to February at another hospital where she was intubated for respiratory failure exact reason for hospitalization is not clear. Review of Systems Review of Systems: All systems reviewed & are unremarkable except as noted in HPI and below (HPI and below) [facility] Past Medical History Medical History (Updated 03/27/23 @ 11:10 by Tyree Azevedo MD) Atrial fibrillation Chronic respiratory failure COPD (chronic obstructive pulmonary disease) Coronary disease Depression Hypertension PAD (peripheral artery disease) Surgical History Surgical History (Updated 03/27/23 @ 10:52 by Tyree Azevedo MD) Hx of peripheral artery bypass Family Histo
[2023-03-29] MEDS: ATORVASTATIN 40 MG TABLET 80 MG PO (20:40)
[2023-03-30] VITALS (30 sets, daily range): BP systolic 141–161; BP diastolic 83–93; PULSE 85–112; RESP 18–25; TEMP 36.2–36.9; O2SAT 94–100
[2023-03-30 04:35] LABS: Alveolar/Arterial O2 Gradient 84.8 mmHg; Base Excess ABG 16.9 mEq/l (+/-2.0); Carboxyhemoglobin 0.3 % THb (0-2.0); Fractional Inspired Oxygen 30 %; HCO3 ABG 43.8 mEq/l (22.0-26.0); Methemoglobin ABG 0.3 %THb (0-1.5); Oxygen Content ABG 15.5 %vol (16.0-22.0); Oxygen Saturation ABG 88.9 % (95.0-100.0); Oxyhemoglobin 88.1 % THb (90.0-100.0); PO2 ABG 54.7 mmHg (80.0-100.0); PO2 FiO2 Ratio Arterial Blood 1.82 %; Reduced Hemoglobin 11.3 %THb (0-5.0); Total Hemoglobin 12.5 g/dL (12.0-18.0); pH ABG 7.458 (7.350-7.450)
[2023-03-30 05:00] LABS: Device NON-INVASIVE VENT; PCO2 ABG 63.3 mmHg (35.0-45.0); Site Drawn RIGHT BRACHIAL
[2023-03-30 05:09] LABS: Hematocrit 36.5 % (37.0-47.0); Hemoglobin 10.8 g/dL (12.0-15.0); Mean Corpuscular HGB Conc 29.6 g/dl (32-36); Mean Corpuscular Hemoglobin 28.3 pg (26-34); Mean Corpuscular Volume 95.5 fl (80-100); Mean Platelet Volume 9.4 fl (7.4-10.4); Platelet Count Result 270 k/mm3 (150-375); Red Blood Count 3.82 M/mm3 (4.2-5.4); Red Cell Distribution Width 12.6 % (11.5-14.5); White Blood Count 12.5 K/mm3 (4.5-10.0)
[2023-03-30 05:50] LABS: Alanine Aminotransferase 22 U/L (6-35); Albumin Level 3.3 g/dL (3.5-5.1); Alkaline Phosphatase 85 U/L (38-126); Aspartate Amino Transferase 34 U/L (14-36); Bilirubin,Total 0.4 mg/dL (0.2-1.3); Blood Urea Nitrogen 26 mg/dL (7-17); Calcium 9.2 mg/dL (8.4-10.2); Carbon Dioxide > 40 mmol/L (22-30); Chloride 92 mmol/L (98-107); Estimated CRCL calculation 64 ml/min; Estimated Glomerular Filt Rate > 60; Glucose 97 mg/dL (65-110); Potassium 3.6 mmol/L (3.4-5.0); Sodium 141 mmol/L (137-145)
[2023-03-30] MEDS: ALBUTEROL SULFATE NEB 2.5 MG/3 ML INH INHALATION ×3 (07:10→20:57)
[2023-03-30] MEDS: BUDESONIDE RESPULE NEB 0.5 MG/2 ML AMP INHALATION ×2 (07:10→20:57)
[2023-03-30] MEDS: IPRATROPIUM BR 0.02% INH SOLN 0.5 MG/2.5 ML VIAL INHALATION ×3 (07:10→20:57)
--- NOTE | 2023-03-30 08:22 | PCOTNOTE ---
Attempted to see pt for OT evaluation this morning but pt refusing to get out of bed or move around right now despite much encouragement from therapist and education about benefits of working with therapy. Will continue to follow.
[2023-03-30] MEDS: AZITHROMYCIN 250 MG TABLET 500 MG PO (09:38)
[2023-03-30] MEDS: ASPIRIN 325 MG ENTERIC TABLET PO (09:39)
[2023-03-30] MEDS: LOSARTAN POTASSIUM 50 MG TABLET PO (09:39)
[2023-03-30] MEDS: VENLAFAXINE HCL 37.5 MG TABLET PO ×2 (09:39→16:13)
[2023-03-30] MEDS: predniSONE 20 MG TABLET 40 MG PO (09:39)
[2023-03-30] MEDS: APIXABAN 5 MG TABLET PO ×2 (09:39→16:13)
[2023-03-30] MEDS: METOPROLOL SUCCINATE EXT REL 50 MG TABCR PO (09:40)
--- NOTE | 2023-03-30 12:56 | PM.PNPUL ---
Progress Note: A&P Assessment and Plan (1) COPD exacerbation: Code(s): J44.1 - Chronic obstructive pulmonary disease with (acute) exacerbation Status: Acute Assessment and Plan: A 62 y/o woman, with a documented history of COPD and hypoxemic hypercapnic respiratory failure managed with home ventilatory support, presented with dyspnea attributed to a COPD exacerbation. Her current condition reflected an acute exacerbation of chronic hypercapnic respiratory failure, demonstrated by reduced pH and significantly elevated pCO2 levels. Following treatment with IV steroids, short-acting bronchodilators, antibiotics, and BiPAP support, there was noted improvement in the patient's respiratory status. It is no longer necessary for the patient to use BiPAP support throughout the day. Physical examination revealed her to be in mild respiratory distress while on supplemental oxygen, with physically apparent lung over-inflation due to advanced emphysema. There was no evidence of wheezing. Regarding the ongoing plan of care, the patient will continue with nebulized short-acting bronchodilators, antibiotics, and oral steroids as prescribed. BiPAP support will resume at night. Mobility will be encouraged through transfer out of bed to chair. (2) Atrial fibrillation: Code(s): I48.91 - Unspecified atrial fibrillation Status: Acute (3) Acute and chronic respiratory failure, unspecified whether with hypoxia or hypercapnia: Code(s): J96.20 - Acute and chronic respiratory failure, unspecified whether with hypoxia or hypercapnia Status: Acute (4) Acute hypercapnic respiratory failure: Code(s): J96.02 - Acute respiratory failure with hypercapnia Status: Acute Subjective Date/time seen: 03/30/23 12:56 Interval history: Patient has no new respiratory symptoms. Has been on BiPAP support at night, using lower pressures. On just supplemental oxygen via nasal cannula throughout the day. Shortness of breath unchanged over the last 24 hours. No wheezing. She has some chest congestion. Afebrile Review of Systems Review of Systems: All systems reviewed & are unremarkable except as noted in HPI and below (HPI and below) Exam Narrative: GENERAL APPEARANCE: Well developed, well nourished, alert and cooperative, and appears to be in mild respiratory distress while laying in bed using his oxygen via nasal cannula SKIN: Inspection of the skin reveals no rashes, ulcerations or petechiae. HEENT: Sclerae anicteric and conjunctivae pink and moist. Extraocular movements were intact and pupils were equal, round. Dry oral mucosa. LUNGS: Distant breath sounds bilaterally no wheezing CARDIAC: There was a regular rate and rhythm without any murmurs, gallops, rubs. ABDOMEN: Soft and nontender with normal bowel sounds. There was no organomegaly. LYMPH NODES: No lymphadenopathy was appreciated in the neck. EXTREMITIES: No cyanosis, clubbing or edema. NEUROLOGIC: Alert and oriented x 3. Normal affect. Objective Data Vital Signs Vital Signs: Vital Signs - 24 hr 03/29/23 13:05 03/29/23 13:32 03/29/23 13:49 Temperature Pulse Rate 105 H 108 H Respiratory Rate 24 H 22 H Blood Pressure Pulse Oximetry Oxygen Delivery Nasal Cannula Oxygen Flow Rate 4 Fraction of Inspired Oxygen 03/29/23 14:00 03/29/23 16:00 03/29/23 16:00 Temperature 36.3 C L Pulse Rate 105 H 102 H Respiratory Rate 24 H Blood Pressure 139/102 H Pulse Oximetry 98 98 Oxygen Delivery Nasal Cannula Oxygen Flow Rate 4 Fraction of Inspired Oxygen 03/29/23 16:00 03/29/23 18:00 03/29/23 19:53 Temperature 36.7 C Pulse Rate 100 105 H 102 H Respiratory Rate 22 H Blood Pressure 126/100 H Pulse Oximetry 95 Oxygen Delivery Oxygen Flow Rate Fraction of Inspired Oxygen 03/29/23 20:26 03/29/23 20:00 03/29/23 20:00 Temperature Pulse Rate 101 H 102 H 102 H Respiratory Rate 24 H 24 H Bloo
--- NOTE | 2023-03-30 16:13 | PM.IMPN ---
Progress Note: A&P Assessment and Plan (1) Acute and chronic respiratory failure, unspecified whether with hypoxia or hypercapnia: Code(s): J96.20 - Acute and chronic respiratory failure, unspecified whether with hypoxia or hypercapnia Status: Acute Assessment and Plan: Acute on chronic hypercarbic and hypoxic respiratory failure secondary to COPD exacerbation -patient noncompliant with NIPPV, pCO2 worsened this morning causing respiratory acidosis. Currently awake and protecting her airway. Will continue AVAPS for now -encourage patient to wear NIPPV this morning, will repeat ABGs. -Patient at risk of requiring intubation if does not improve or further deteriorate -chest x-ray this morning is clear -continue azithromycin for COPD exacerbation -continue Solu-Medrol to 40 mg IV q.6 hours (started on 03/28) -continue bronchodilators, -continue Pulmicort -PCR COVID flu and RSV negative -pulmonary consulted 03/30: stable, encourage ambulation (2) COPD exacerbation: Code(s): J44.1 - Chronic obstructive pulmonary disease with (acute) exacerbation Status: Acute Assessment and Plan: See above (3) Abnormal EKG: Code(s): R94.31 - Abnormal electrocardiogram [ECG] [EKG] Status: Acute Assessment and Plan: Troponins negative x2, patient denies any chest pain Patient is already anticoagulated with Eliquis and is on statin and beta-jessica 03/27/2023 echocardiogram Summary ? 1. Complete two-dimensional, color flow and Doppler transthoracic echocardiogram is performed. ? 2. Technically difficult study. ? 3. Left ventricular chamber dimension is normal. ? 4. Left ventricular systolic function is normal, estimated at 55-60%. ? 5. There is no increased left ventricular wall thickness. ? 6. The left ventricular diastolic function is abnormal. ? 7. There is trace mitral valve regurgitation. ? 8. There is trace tricuspid valve regurgitation. ? 9. Mild pulmonary hypertension, estimated pulmonary arterial systolic pressure is 43 mmHg. (4) Sinus tachycardia: Code(s): R00.0 - Tachycardia, unspecified Status: Acute Assessment and Plan: Continue p.o. beta-jessica (5) Hypertension: Code(s): I10 - Essential (primary) hypertension Status: Acute Assessment and Plan: Continue beta-jessica losartan and add p.r.n. Lopressor (6) Atrial fibrillation: Code(s): I48.91 - Unspecified atrial fibrillation Status: Acute Assessment and Plan: Patient reports history of atrial fibrillation but currently in sinus tachycardia. Continue beta-jessica and Eliquis (7) Coronary disease: Code(s): I25.10 - Atherosclerotic heart disease of [place] coronary artery without angina pectoris Status: Acute Assessment and Plan: Patient reports history of coronary disease although unable to provide any details EKG reviewed Troponins negative x2 Continue anticoagulation with Eliquis, continue statin beta-jessica and ARB Obtain records from [facility] Plan DVT prophylaxis -Eliquis Code Status - Full Code Subjective Date/time seen: 03/30/23 16:13 Interval history: 62 y/o F with acute hypercapnic respiratory failure likely related to COPD exacerbation, sinus tachycardia, atrial fibrillation, coronary artery disease, essential hypertension. 03/30: No overnight events noted. No chest pain or shortness of breath. No nausea, vomiting or diarrhea. No fevers or chills. Review of Systems Review of Systems: 12 point review of systems was assessed and was negative except as noted in the HPI Exam Narrative: General: No acute distress, alert and oriented per baseline HEENT: Atraumatic, normocephalic, mucous membranes moist CV: Regular rate and rhythm, S1, S2 Lungs: Clear to auscultation bilaterally, no rales or crackles noted, no wheezes, good air entry Abdomen: Soft, nontender, nondistended Extr
[2023-03-30] MEDS: ATORVASTATIN 40 MG TABLET 80 MG PO (20:27)
[2023-03-30] MEDS: CALCIUM CARBONATE (TUMS) 500 MG (200 MG ELEMENTAL) PO (20:27)
[2023-03-31] VITALS (23 sets, daily range): BP systolic 130–161; BP diastolic 71–98; PULSE 86–106; RESP 16–24; TEMP 36.1–36.8; O2SAT 95–100; BMI 16.0
[2023-03-31] MEDS: ALBUTEROL SULFATE NEB 2.5 MG/3 ML INH INHALATION ×4 (02:58→21:40)
[2023-03-31] MEDS: IPRATROPIUM BR 0.02% INH SOLN 0.5 MG/2.5 ML VIAL INHALATION ×4 (02:58→21:40)
[2023-03-31 05:19] LABS: Hematocrit 40.1 % (37.0-47.0); Hemoglobin 12.1 g/dL (12.0-15.0); Mean Corpuscular HGB Conc 30.2 g/dl (32-36); Mean Corpuscular Hemoglobin 28.6 pg (26-34); Mean Corpuscular Volume 94.8 fl (80-100); Mean Platelet Volume 9.4 fl (7.4-10.4); Platelet Count Result 297 k/mm3 (150-375); Red Blood Count 4.23 M/mm3 (4.2-5.4); Red Cell Distribution Width 12.4 % (11.5-14.5); White Blood Count 11.7 K/mm3 (4.5-10.0)
[2023-03-31 05:40] LABS: Alanine Aminotransferase 24 U/L (6-35); Albumin Level 3.4 g/dL (3.5-5.1); Alkaline Phosphatase 80 U/L (38-126); Aspartate Amino Transferase 32 U/L (14-36); Bilirubin,Total 0.5 mg/dL (0.2-1.3); Blood Urea Nitrogen 21 mg/dL (7-17); Calcium 9.3 mg/dL (8.4-10.2); Carbon Dioxide > 40 mmol/L (22-30); Chloride 94 mmol/L (98-107); Estimated CRCL calculation 59 ml/min; Estimated Glomerular Filt Rate > 60; Glucose 116 mg/dL (65-110); Potassium 3.9 mmol/L (3.4-5.0); Sodium 138 mmol/L (137-145)
[2023-03-31] MEDS: ASPIRIN 325 MG ENTERIC TABLET PO (08:33)
[2023-03-31] MEDS: APIXABAN 5 MG TABLET PO ×2 (08:33→17:29)
[2023-03-31] MEDS: METOPROLOL SUCCINATE EXT REL 50 MG TABCR PO (08:33)
[2023-03-31] MEDS: AZITHROMYCIN 250 MG TABLET 500 MG PO (08:33)
[2023-03-31] MEDS: predniSONE 20 MG TABLET 40 MG PO (08:33)
[2023-03-31] MEDS: VENLAFAXINE HCL 37.5 MG TABLET PO ×2 (08:33→17:29)
[2023-03-31] MEDS: LOSARTAN POTASSIUM 50 MG TABLET PO (08:33)
[2023-03-31] MEDS: BUDESONIDE RESPULE NEB 0.5 MG/2 ML AMP INHALATION ×2 (09:54→21:40)
--- NOTE | 2023-03-31 10:15 | PM.PNPUL ---
Progress Note: A&P Assessment and Plan (1) COPD exacerbation: Code(s): J44.1 - Chronic obstructive pulmonary disease with (acute) exacerbation Status: Acute Assessment and Plan: A 62 y/o woman, with a documented history of COPD and hypoxemic hypercapnic respiratory failure managed with home ventilatory support, presented with dyspnea attributed to a COPD exacerbation. Her current condition reflected an acute exacerbation of chronic hypercapnic respiratory failure, demonstrated by reduced pH and significantly elevated pCO2 levels. Following treatment with IV steroids, short-acting bronchodilators, antibiotics, and BiPAP support, there was noted improvement in the patient's respiratory status. It is no longer necessary for the patient to use BiPAP support throughout the day. Physical examination revealed her to be in mild respiratory distress while on supplemental oxygen, with physically apparent lung over-inflation due to advanced emphysema. There was no evidence of wheezing. As for the continuing care plan, the patient will persist with the prescribed nebulized short-acting bronchodilators, antibiotics, and oral steroids. BiPAP support will be reinstated during the night. The patient will be encouraged to move, with assistance if needed, from the bed to the chair. The patient's readiness for discharge to home will be reassessed in the morning. (2) Atrial fibrillation: Code(s): I48.91 - Unspecified atrial fibrillation Status: Acute (3) Acute and chronic respiratory failure, unspecified whether with hypoxia or hypercapnia: Code(s): J96.20 - Acute and chronic respiratory failure, unspecified whether with hypoxia or hypercapnia Status: Acute (4) Acute hypercapnic respiratory failure: Code(s): J96.02 - Acute respiratory failure with hypercapnia Status: Acute Subjective Date/time seen: 03/31/23 10:15 Interval history: Patient has no new respiratory symptoms. Used BiPAP support for few hours last night. Currently on just supplemental oxygen. Complaining of chest tightness. She has no fever or cough sputum production or wheezing. Review of Systems Review of Systems: All systems reviewed & are unremarkable except as noted in HPI and below (HPI and below) Exam Narrative: GENERAL APPEARANCE: Well developed, well nourished, alert and cooperative, and appears to be in mild respiratory distress while laying in bed using his oxygen via nasal cannula SKIN: Inspection of the skin reveals no rashes, ulcerations or petechiae. HEENT: Sclerae anicteric and conjunctivae pink and moist. Extraocular movements were intact and pupils were equal, round. Dry oral mucosa. LUNGS: Distant breath sounds bilaterally no wheezing CARDIAC: There was a regular rate and rhythm without any murmurs, gallops, rubs. ABDOMEN: Soft and nontender with normal bowel sounds. There was no organomegaly. LYMPH NODES: No lymphadenopathy was appreciated in the neck. EXTREMITIES: No cyanosis, clubbing or edema. NEUROLOGIC: Alert and oriented x 3. Normal affect. Objective Data Vital Signs Vital Signs: Vital Signs - 24 hr 03/30/23 12:00 03/30/23 12:00 03/30/23 14:00 Temperature 36.4 C L Pulse Rate 95 92 97 Respiratory Rate 22 H Blood Pressure 161/90 H Pulse Oximetry 96 Oxygen Delivery Oxygen Flow Rate Fraction of Inspired Oxygen 03/30/23 13:15 03/30/23 13:15 03/30/23 13:25 Temperature Pulse Rate 85 85 87 Respiratory Rate 23 H 23 H 21 H Blood Pressure Pulse Oximetry 99 Oxygen Delivery BiPAP Oxygen Flow Rate Fraction of Inspired Oxygen 03/30/23 12:00 03/30/23 16:00 03/30/23 16:00 Temperature Pulse Rate 97 99 Respiratory Rate 21 H Blood Pressure Pulse Oximetry 97 99 Oxygen Delivery BiPAP Nasal Cannula Oxygen Flow Rate 3 3 Fraction of Inspired Oxygen 30 30 03/30/23 16:00 03/30/23 18:00 03/30/23 20:26 Temperature 36.2 C L 36.9 C Pulse Rate 100
[2023-03-31] MEDS: polyethylene glycoL 3350 17 GM POWD.PACK PO (13:10)
--- NOTE | 2023-03-31 14:18 | PM.IMPN ---
Progress Note: A&P Assessment and Plan (1) Acute and chronic respiratory failure, unspecified whether with hypoxia or hypercapnia: Code(s): J96.20 - Acute and chronic respiratory failure, unspecified whether with hypoxia or hypercapnia Status: Acute Assessment and Plan: Acute on chronic hypercarbic and hypoxic respiratory failure secondary to COPD exacerbation -patient noncompliant with NIPPV, pCO2 worsened this morning causing respiratory acidosis. Currently awake and protecting her airway. Will continue AVAPS for now -encourage patient to wear NIPPV this morning, will repeat ABGs. -Patient at risk of requiring intubation if does not improve or further deteriorate -chest x-ray this morning is clear -continue azithromycin for COPD exacerbation -continue Solu-Medrol to 40 mg IV q.6 hours (started on 03/28) -continue bronchodilators, -continue Pulmicort -PCR COVID flu and RSV negative -pulmonary consulted 03/30: stable, encourage ambulation 03/31: PT/OT. SNF vs home (2) COPD exacerbation: Code(s): J44.1 - Chronic obstructive pulmonary disease with (acute) exacerbation Status: Acute Assessment and Plan: See above (3) Abnormal EKG: Code(s): R94.31 - Abnormal electrocardiogram [ECG] [EKG] Status: Acute Assessment and Plan: Troponins negative x2, patient denies any chest pain Patient is already anticoagulated with Eliquis and is on statin and beta-jessica 03/27/2023 echocardiogram Summary ? 1. Complete two-dimensional, color flow and Doppler transthoracic echocardiogram is performed. ? 2. Technically difficult study. ? 3. Left ventricular chamber dimension is normal. ? 4. Left ventricular systolic function is normal, estimated at 55-60%. ? 5. There is no increased left ventricular wall thickness. ? 6. The left ventricular diastolic function is abnormal. ? 7. There is trace mitral valve regurgitation. ? 8. There is trace tricuspid valve regurgitation. ? 9. Mild pulmonary hypertension, estimated pulmonary arterial systolic pressure is 43 mmHg. (4) Sinus tachycardia: Code(s): R00.0 - Tachycardia, unspecified Status: Acute Assessment and Plan: Continue p.o. beta-jessica (5) Hypertension: Code(s): I10 - Essential (primary) hypertension Status: Acute Assessment and Plan: Continue beta-jessica losartan and add p.r.n. Lopressor (6) Atrial fibrillation: Code(s): I48.91 - Unspecified atrial fibrillation Status: Acute Assessment and Plan: Patient reports history of atrial fibrillation but currently in sinus tachycardia. Continue beta-jessica and Eliquis (7) Coronary disease: Code(s): I25.10 - Atherosclerotic heart disease of [place] coronary artery without angina pectoris Status: Acute Assessment and Plan: Patient reports history of coronary disease although unable to provide any details EKG reviewed Troponins negative x2 Continue anticoagulation with Eliquis, continue statin beta-jessica and ARB Obtain records from [facility] Plan DVT prophylaxis -Eliquis Code Status - Full Code Subjective Date/time seen: 03/31/23 14:18 Interval history: 62 y/o F with acute hypercapnic respiratory failure likely related to COPD exacerbation, sinus tachycardia, atrial fibrillation, coronary artery disease, essential hypertension. 03/30: No overnight events noted. No chest pain or shortness of breath. No nausea, vomiting or diarrhea. No fevers or chills. 03/31: much better today, no sob, no cp, no nvd. feels weak. Review of Systems Review of Systems: 12 point review of systems was assessed and was negative except as noted in the HPI Exam Narrative: General: No acute distress, alert and oriented per baseline HEENT: Atraumatic, normocephalic, mucous membranes moist CV: Regular rate and rhythm, S1, S2 Lungs: Clear to auscultation bilaterally, no rales or cr
--- NOTE | 2023-03-31 15:29 | PCPTNOTE ---
The patient treatment was not able to be completed due to patient receiving OT evaluation. Will plan to continue treatment per plan of care.
[2023-03-31] MEDS: CALCIUM CARBONATE (TUMS) 500 MG (200 MG ELEMENTAL) PO (20:20)
[2023-03-31] MEDS: ATORVASTATIN 40 MG TABLET 80 MG PO (20:21)
--- NOTE | 2023-03-31 21:32 | PC.NURSE ---
Patient arrived from IMU at 2120 hrs. Patient orientated to room and belongings placed within reach. No distress observed at this time.
--- NOTE | 2023-03-31 21:36 | PC.NURSE ---
This patient, Carly Oliveira, was transferred to [[facility] ] on 03/31/23 at 2136. Personal belongings sent with patient. Report given to [ Artem ]. Appropriate documentation sent with patient.
[2023-04-01] VITALS (11 sets, daily range): BP systolic 131–135; BP diastolic 74–79; PULSE 97–104; RESP 20–25; TEMP 36.4–36.5; O2SAT 97–100
[2023-04-01] MEDS: IPRATROPIUM BR 0.02% INH SOLN 0.5 MG/2.5 ML VIAL INHALATION ×3 (02:15→13:29)
[2023-04-01] MEDS: ALBUTEROL SULFATE NEB 2.5 MG/3 ML INH INHALATION ×3 (02:15→13:29)
--- NOTE | 2023-04-01 03:07 | PCRCNOTE ---
Patient was under the impression that wearing the bipap a couple hours here and there was beneficial to decreasing her CO2; RT explained to pt she needed to wear it for a chunk of time with 5 hrs being the minimum and 6-8 being the optimal amount of time. Pt understands and stated she will keep mask on t/o the night.
[2023-04-01 05:41] LABS: Hemoglobin 12.4 g/dL (12.0-15.0); Mean Corpuscular Hemoglobin 28.8 pg (26-34); Mean Corpuscular Volume 92.8 fl (80-100); Mean Platelet Volume 9.2 fl (7.4-10.4); Platelet Count Result 293 k/mm3 (150-375); Red Blood Count 4.31 M/mm3 (4.2-5.4); Red Cell Distribution Width 12.3 % (11.5-14.5); White Blood Count 12.6 K/mm3 (4.5-10.0)
[2023-04-01 05:54] LABS: Alanine Aminotransferase 25 U/L (6-35); Albumin Level 3.7 g/dL (3.5-5.1); Alkaline Phosphatase 86 U/L (38-126); Aspartate Amino Transferase 30 U/L (14-36); Bilirubin,Total 0.4 mg/dL (0.2-1.3); Blood Urea Nitrogen 19 mg/dL (7-17); Calcium 9.8 mg/dL (8.4-10.2); Carbon Dioxide > 40 mmol/L (22-30); Chloride 93 mmol/L (98-107); Estimated CRCL calculation 62 ml/min; Estimated Glomerular Filt Rate > 60; Glucose 120 mg/dL (65-110); Magnesium 1.9 mg/dL (1.6-2.3); Potassium 3.8 mmol/L (3.4-5.0); Sodium 139 mmol/L (137-145)
[2023-04-01] MEDS: BUDESONIDE RESPULE NEB 0.5 MG/2 ML AMP INHALATION (07:55)
[2023-04-01] MEDS: VENLAFAXINE HCL 37.5 MG TABLET PO (08:33)
[2023-04-01] MEDS: LOSARTAN POTASSIUM 50 MG TABLET PO (08:34)
[2023-04-01] MEDS: ASPIRIN 325 MG ENTERIC TABLET PO (08:34)
[2023-04-01] MEDS: METOPROLOL SUCCINATE EXT REL 50 MG TABCR PO (08:34)
[2023-04-01] MEDS: APIXABAN 5 MG TABLET PO (08:34)
[2023-04-01] MEDS: predniSONE 20 MG TABLET 40 MG PO (08:34)
[2023-04-01] MEDS: polyethylene glycoL 3350 17 GM POWD.PACK PO (08:35)
--- NOTE | 2023-04-01 11:04 | PM.PNPUL ---
Progress Note: A&P Assessment and Plan (1) COPD exacerbation: Code(s): J44.1 - Chronic obstructive pulmonary disease with (acute) exacerbation Status: Acute Assessment and Plan: AA 62-year-old female patient, known to have COPD and hypoxemic hypercapnic respiratory failure managed with home ventilatory support, presented with dyspnea due to a COPD exacerbation. Her current status indicated an acute exacerbation of chronic hypercapnic respiratory failure, as evidenced by a decrease in pH and a significant increase in pCO2 levels. After receiving treatment with IV steroids, short-acting bronchodilators, antibiotics, and BiPAP support, the patient's respiratory status improved. The patient no longer requires BiPAP support throughout the day. On physical examination, she was found to be in mild respiratory distress while on supplemental oxygen, with visible lung over-inflation due to advanced emphysema. No wheezing was detected. The patient's respiratory status has remained stable for the past 2 days. Plan: The patient is fit for discharge. She will continue her home oxygen at the same flow rate and will resume using her home ventilator at night. She should adhere to the prednisone taper regimen as follows: Prednisone 20 mg daily for 3 days, then prednisone 15 mg daily for 3 days, then prednisone 10 mg daily for 3 days, then discontinue. The patient will continue with albuterol nebulized treatment four times daily as needed and also an albuterol rescue inhaler. A prescription for a Trelegy inhaler 100 mg 1 puff daily will also be provided. A follow-up appointment with her supervisor color making is recommended. Please contact me with any questions. (2) Atrial fibrillation: Code(s): I48.91 - Unspecified atrial fibrillation Status: Acute (3) Acute and chronic respiratory failure, unspecified whether with hypoxia or hypercapnia: Code(s): J96.20 - Acute and chronic respiratory failure, unspecified whether with hypoxia or hypercapnia Status: Acute (4) Acute hypercapnic respiratory failure: Code(s): J96.02 - Acute respiratory failure with hypercapnia Status: Acute Subjective Date/time seen: 04/01/23 11:04 Interval history: Patient has no new respiratory symptoms. Used BiPAP support for few hours last night. Currently on just supplemental oxygen. Complaining of chest tightness. She has no fever or cough sputum production or wheezing. Review of Systems Review of Systems: All systems reviewed & are unremarkable except as noted in HPI and below (HPI and below) Exam Narrative: GENERAL APPEARANCE: Well developed, well nourished, alert and cooperative, and appears to be in mild respiratory distress while laying in bed using his oxygen via nasal cannula SKIN: Inspection of the skin reveals no rashes, ulcerations or petechiae. HEENT: Sclerae anicteric and conjunctivae pink and moist. Extraocular movements were intact and pupils were equal, round. Dry oral mucosa. LUNGS: Distant breath sounds bilaterally no wheezing CARDIAC: There was a regular rate and rhythm without any murmurs, gallops, rubs. ABDOMEN: Soft and nontender with normal bowel sounds. There was no organomegaly. LYMPH NODES: No lymphadenopathy was appreciated in the neck. EXTREMITIES: No cyanosis, clubbing or edema. NEUROLOGIC: Alert and oriented x 3. Normal affect. Objective Data Vital Signs Vital Signs: Vital Signs - 24 hr 03/31/23 12:00 03/31/23 12:00 03/31/23 12:00 Temperature 36.2 C L Pulse Rate 101 H 102 H Respiratory Rate 20 Blood Pressure 145/71 H Pulse Oximetry 95 96 Oxygen Delivery Nasal Cannula Oxygen Flow Rate 3 03/31/23 14:00 03/31/23 15:10 03/31/23 14:00 Temperature Pulse Rate 96 98 Respiratory Rate 20 Blood Pressure Pulse Oximetry Oxygen Delivery Nasal Cannula Oxygen Flow Rate 4 03/31/23 14:20 03/31/23 16:00 03/31/23 19:53 Temperature 36.4 C 36.1 C L Pulse Rate 101 H 1
--- NOTE | 2023-04-01 11:21 | PM.DS ---
DS: Admitting Diagnosis Discharge Date 04/01/23 Admitting Diagnosis sob DS: Discharge Diagnosis Discharge Diagnosis (1) Acute and chronic respiratory failure, unspecified whether with hypoxia or hypercapnia: Code(s): J96.20 - Acute and chronic respiratory failure, unspecified whether with hypoxia or hypercapnia Status: Acute Assessment and Plan: Acute on chronic hypercarbic and hypoxic respiratory failure secondary to COPD exacerbation -patient noncompliant with NIPPV, pCO2 worsened this morning causing respiratory acidosis. Currently awake and protecting her airway. Will continue AVAPS for now -encourage patient to wear NIPPV this morning, will repeat ABGs. -Patient at risk of requiring intubation if does not improve or further deteriorate -chest x-ray this morning is clear -continue azithromycin for COPD exacerbation -continue Solu-Medrol to 40 mg IV q.6 hours (started on 03/28) -continue bronchodilators, -continue Pulmicort -PCR COVID flu and RSV negative -pulmonary consulted 03/30: stable, encourage ambulation 03/31: PT/OT. SNF vs home (2) COPD exacerbation: Code(s): J44.1 - Chronic obstructive pulmonary disease with (acute) exacerbation Status: Acute Assessment and Plan: See above (3) Abnormal EKG: Code(s): R94.31 - Abnormal electrocardiogram [ECG] [EKG] Status: Acute Assessment and Plan: Troponins negative x2, patient denies any chest pain Patient is already anticoagulated with Eliquis and is on statin and beta-jessica 03/27/2023 echocardiogram Summary ? 1. Complete two-dimensional, color flow and Doppler transthoracic echocardiogram is performed. ? 2. Technically difficult study. ? 3. Left ventricular chamber dimension is normal. ? 4. Left ventricular systolic function is normal, estimated at 55-60%. ? 5. There is no increased left ventricular wall thickness. ? 6. The left ventricular diastolic function is abnormal. ? 7. There is trace mitral valve regurgitation. ? 8. There is trace tricuspid valve regurgitation. ? 9. Mild pulmonary hypertension, estimated pulmonary arterial systolic pressure is 43 mmHg. (4) Sinus tachycardia: Code(s): R00.0 - Tachycardia, unspecified Status: Acute Assessment and Plan: Continue p.o. beta-jessica (5) Hypertension: Code(s): I10 - Essential (primary) hypertension Status: Acute Assessment and Plan: Continue beta-jessica losartan and add p.r.n. Lopressor (6) Atrial fibrillation: Code(s): I48.91 - Unspecified atrial fibrillation Status: Acute Assessment and Plan: Patient reports history of atrial fibrillation but currently in sinus tachycardia. Continue beta-jessica and Eliquis (7) Coronary disease: Code(s): I25.10 - Atherosclerotic heart disease of [place] coronary artery without angina pectoris Status: Acute Assessment and Plan: Patient reports history of coronary disease although unable to provide any details EKG reviewed Troponins negative x2 Continue anticoagulation with Eliquis, continue statin beta-jessica and ARB Obtain records from [facility] Plan DVT prophylaxis -Eliquis Code Status - Full Code DS: Summary Hospital Course Hospital Course: 62 y/o F with acute hypercapnic respiratory failure likely related to COPD exacerbation, sinus tachycardia, atrial fibrillation, coronary artery disease, essential hypertension. Acute on chronic hypercarbic and hypoxic respiratory failure secondary to COPD exacerbation -patient noncompliant with NIPPV, pCO2 worsened this morning causing respiratory acidosis.? Currently awake and protecting her airway.? Will continue AVAPS for now -encourage patient to wear NIPPV this morning, will repeat ABGs. -Patient at risk of requiring intubation if does not improve or further deteriorate -chest x-ray this morning is clear -continue azithromycin for COPD exacerbation -continue So
[2023-04-01] MEDS: CALCIUM CARBONATE (TUMS) 500 MG (200 MG ELEMENTAL) PO (12:28)
== END 2023-04-01 15:55 | disposition home health service (06) | DRG 133 ==
LOC: ANHED 04:45 → ANHICU 06:22 → ANHIMU 03-29 12:30 → ANH2MED 03-31 21:27
PROVIDERS: Internal Medicine; Admitting Provider Internal Medicine; Emergency Provider Emergency Medicine; Visit Provider Student in an Organized Health Care Education/Training Program
DX: J96.21 Acute and chronic respiratory failure with hypoxia (principal); J44.1 Chronic obstructive pulmonary disease with (acute) exacerbation; J96.22 Acute and chronic respiratory failure with hypercapnia; R00.0 Tachycardia, unspecified; I48.91 Unspecified atrial fibrillation; I10 Essential (primary) hypertension; I25.10 Atherosclerotic heart disease of native coronary artery without angina pectoris; G47.33 Obstructive sleep apnea (adult) (pediatric); I73.9 Peripheral vascular disease, unspecified; Z20.822 Contact with and (suspected) exposure to COVID-19; Z79.01 Long term (current) use of anticoagulants; Z87.891 Personal history of nicotine dependence; Z99.81 Dependence on supplemental oxygen
CPT/HCPCS: 36415; 36600; 71045; 76705; 80053; 81001; 82375; 82805; 83050; 83605; 83690; 83735; 83880; 84145; 84484; 85025; 85027; 85610; 85730; 87040; 87637; 93005; 93306; 94002; 94003; 94640; 96375; 97116; 97161; 97166; 99285; A9270; G0378; G0379; J0456; J2060; J2920; J2930; J7512

== ENCOUNTER 2024-05-16 11:33 | Inpatient (IN) | payer OTHER, SELFPAY ==
[2024-05-16] VITALS (47 sets, daily range): BP systolic 88–142; BP diastolic 57–83; PULSE 65–118; RESP 14–37; TEMP 36.4–36.8; O2SAT 95–100; BMI 15.0
--- NOTE | ~2024-05-16 | XR_ITS ---
EXAMINATION: XR chest 1V portable DATE: 05/16/2024 13:55 INDICATION: Chest pain. TECHNIQUE: A single frontal view of the chest was obtained on 2 radiographs. COMPARISON: Chest single view 03/30/2023 FINDINGS: The lungs are hyperexpanded, consistent with emphysema. No pleural effusion or pneumothorax . The heart size is normal. IMPRESSION: 1. Emphysema. Reviewed, dictated and finalized at location A. RT FORKER IMPRESSION: 1. Emphysema.
--- NOTE | 2024-05-16 11:49 | ECG_ITS ---
Test Date: 2024-05-16 11:58:37 Measurements Intervals [place] Rate: 95 P: 83 MT: 123 QRS: 84 QRSD: 90 T: 24 QT: 319 QTc: 402 Interpretive Statements SINUS RHYTHM POSSIBLE RIGHT ATRIAL ENLARGEMENT MINIMAL Q WAVES- INFERIOR LEADS BASELINE ARTIFACT- I, II, III, AVR, AVL, AVF, V1-V6 BORDERLINE ECG No previous ECG available for comparison Electronically Signed On 05-16-2024 12:05:01 DESKTOP OPERATOR by Greg Vargas D.O.
[2024-05-16 12:12] LABS: Basophils Percent Auto 0.2 % (0.2-1.2); Eosinophils Percent Auto 0.3 % (0-4.4); Hematocrit 39.7 % (37.0-47.0); Hemoglobin 11.4 g/dL (12.0-15.0); Immature Granulocyte Absolute 0.02 K/mm3 (0.00-0.031); Immature Granulocyte Percent A 0.2 % (0-0.5); Lymphocytes Absolute Auto 1.29 K/mm3 (0.9-3.2); Lymphocytes Percent Auto 14.5 % (18.3-44.2); Mean Corpuscular HGB Conc 28.7 g/dl (32-36); Mean Corpuscular Hemoglobin 29.2 pg (26-34); Mean Corpuscular Volume 101.5 fl (80-100); Mean Platelet Volume 9.7 fl (7.4-10.4); Monocytes Absolute Auto 0.7 K/mm3 (0.1-0.6); Neutrophils Absolute Auto 6.8 K/mm3 (1.3-6.7); Neutrophils Percent Auto 76.8 % (45.5-73.1); Platelet Count Result 213 k/mm3 (150-375); Red Blood Count 3.91 M/mm3 (4.2-5.4); Red Cell Distribution Width 12.8 % (11.5-14.5); White Blood Count 8.9 K/mm3 (4.5-10.0)
[2024-05-16 12:26] LABS: INR 1.2; Prothrombin Time 15.4 Seconds (11.1-14.7)
[2024-05-16 12:27] LABS: Partial Thromboplastin Time 30.8 Seconds (22.3-36.8)
[2024-05-16 12:34] LABS: Alanine Aminotransferase 26 U/L (6-35); Albumin Level 3.7 g/dL (3.5-5.1); Alkaline Phosphatase 49 U/L (38-126); Aspartate Amino Transferase 30 U/L (14-36); Blood Urea Nitrogen 20 mg/dL (7-17); Calcium 9.3 mg/dL (8.4-10.2); Chloride 84 mmol/L (98-107); Estimated CRCL calculation 71 ml/min; Estimated Glomerular Filt Rate > 60; Glucose 161 mg/dL (65-110); Lipase 485 U/L (23-300); Sodium 138 mmol/L (137-145)
[2024-05-16 12:40] LABS: Troponin I < 0.012 ng/mL (0.000-0.034)
[2024-05-16 12:47] LABS: Hypochromasia 1+; Platelet Estimate Adequate (Adequate); Schistocytes None Seen; Stomatocytes 1+
[2024-05-16 12:53] LABS: Magnesium 1.9 mg/dL (1.6-2.3)
[2024-05-16] MEDS: IPRATROPIUM 0.5 MG/ALBUTEROL SULFATE 2.5 MG AMPUL.NEB 3 ML INHALATION (13:02)
[2024-05-16 13:07] LABS: NT Pro B Type Natriuretic Pept 189 pg/mL (19.9-100)
[2024-05-16 13:13] LABS: Lactic Acid Reflex 1.1 mmol/L (0.7-2.0)
--- OUTSIDE RECORDS SUMMARY | 2024-05-16 13:17 | XMS_ITS | Referral Summary ---
Author Organization [facility] Address [address] [place] [id number] Care Team Providers Care Director Of Program Management Name Role Phone Genesis Perez MD PhD Unavailable [phone] Yang Rosales MD Primary Care Provider Allergies Active Allergy Reactions Criticality Noted Date Comments Adhesive Rash Medium 08/04/2021 EKG leads Penicillins Itching,Rash Medium 08/30/2007 Medications albuterol HFA (PROVENTIL HFA,VENTOLIN HFA,PROAIR HFA) 90 mcg/actuation inhaler albuterol sulfate HFA 90 mcg/actuation aerosol inhaler 11/12/19 21 Active atorvastatin (LIPITOR) 80 mg tablet atorvastatin 80 mg tablet Active ipratropium-al buteroL (DUO-NEB) 0.5-2.5 mg/3 mL nebulizer solution ipratropium 0.5 mg-albuterol 3 mg (2.5 mg base)/3 mL nebulization soln Active venlafaxine (EFFEXOR) 37.5 mg tablet venlafaxine 37.5 mg tablet Active aspirin 81 mg enteric coated tabletIndicati ons:Arterial occlusion, lower extremity (HCC) Take 1 tablet (81 mg total) by mouth daily 30 tablet 11 12/10/19 21 Active ibuprofen (ADVIL,MOTRIN) 400 mg tablet Take 1 tablet (400 mg total) by mouth every 6 (six) hours as needed for pain 120 tablet 12/09/19 21 Active polyethylene glycol (MIRALAX) 17 gram packetIndicati ons:constipati on Take 1 packet (17 g total) by mouth daily as needed for constipation 12/09/19 21 Active senna-docusate (PERICOLACE) 8.6-50 mg Take 1-2 tablets by mouth 2 (two) times a day 40 tablet 12/09/19 Active Additional Information Patient not taking.Reported on 08/04/2021 cyclobenzaprin e (FLEXERIL) 10 mg tablet cyclobenzaprine 10 mg tablet TAKE ONE TABLET BY MOUTH THREE TIMES DAILY NEEDED Active budesonide-for moteroL (SYMBICORT) 160-4.5 mcg/actuation inhaler Symbicort 160 mcg-4.5 mcg/actuation HFA aerosol inhaler Active gabapentin (NEURONTIN) 300 mg capsule 06/02/19 Active metoprolol tartrate (LOPRESSOR) 50 mg immediate release tablet 07/09/19 Active Active Problems Problem Noted Date Diagnosed Date Wound of left groin 12/15/2020 Wound of right groin 12/15/2020 Leukocytosis 12/07/2020 Assessment & Plan (12/07/2020 4:27 PM CDT): WBC count trending upward 14.4 overnight. Afebrile - UA unremarkable - IS/ turn, cough, deep breathe - CXR 12/05 unremarkable. Consider repeat CXR - Follow CBC HFrEF (heart failure with re duced ejection fraction) ([facility]) 11/27/2020 Assessment & Plan (12/05/2020 4:20 PM CDT): - Stress echo aborted due to EF 40% (decreased from last known EF 55% in 2015) - Cardiology consulted: New since 2014. likely dt ICM. Unclear if there is active ischemia or if these the findings are old. - Heart cath 11/27 with widely patent stents and minimal CAD. Ok to proceed with vascular surgery - No further cardiac workup Tobacco dependence 11/26/2020 Assessment & Plan (11/26/2020 9:22 AM CDT): - Reports current 1/2 PPD smoker - Smoking cessation counseling given - Pt declined nicotine patch, agreeable to try nicotine gum Arterial occlusion, lower extremity 11/25/2020 Assessment & Plan (12/07/2020 4:26 PM CDT): - Patient with history of bilateral aortoiliac occlusion s/p Rt ax-fem and Rt to Lt fem- fem bypass in 2014 who presents with complaints of worsening bilateral LE coolness and pain. CTA in ED notable for occluded Rt ax-fem and fem-fem bypass. LE being fed only via epigastrics. - 12/01 OR for aortobifemoral bypass with bilateral re-do groin exposures and partial ax-fem, fem-fem explant. Bilateral sartorius flaps by PRS - 12/05 TTF - OOB as tolerated. Bilateral hip flexion <60 degrees - PT/OT following - Regular diet - Scheduled APAP, PO oxy PRN - Bowel regimen - SQH HTN (hypertension) 11/25/2020 Assessment & Plan (12/07/2020 4:28 PM CDT): - On metoprolol and enalapril at home - Continue metoprolol - Enalapril on hold perioperatively Atherosclerosis of [place] artery of extremity Aortoiliac occlusive disease (CMS/HCC) 5 Social History Tobacco Use Types Packs/Day Years Used Date Smoking Tobacco: Former Cigarettes Smokeless Tobacco: Never AUDIT-C Answer Date Recorded Q1: How often do you have a drink containing alc ohol? 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 Gender Identity Not on file Sexual Orientation Not on file Last Filed Vital Signs Vital Sign Reading Time Taken Comments Blood Pressure 146/83 08/04/2021 11:50 AM CDT Pulse 103 08/04/2021 11:50 AM CDT Temperature 36.6 C (97.8 F) 12/22/2020 2:20 PM CDT Respiratory Rate 18 12/08/2020 8:00 AM CDT Oxygen Saturation 93% 08/04/2021 11:50 AM CDT Inhaled Oxygen Concentration - - Weight 56.2 kg (124 lb) 08/04/2021 11:50 AM CDT Height 172.7 cm (5' 8 ) 12/22/2020 2:20 PM CDT Body Mass Index 18.85 12/22/2020 2:20 PM CDT Plan of Treatment Not on file Medical Devices Implanted Type Area Pattern Fitter Device Identifier Shelf Expiration Date Model / Serial / Lot Terumo Cardio Vascular [id number] Gelsoft Plus Vascutek 12/6mm 45cm Main Leg Bore Reduced - [id number] - [id number] Implanted:Qty : 1 on 12/01/2020 by Genesis Perez MD PhD at [facility] Graft N/A: Aorta Terum[employer] V[employer] [id number] 12/17/2022 [id number] / [id number] / [id number] Insurance Advance Directives For more information, please contact: [phone] * Full Code (Latest Code Status on File) Date Activated Date Inactivated Comments 11/25/2020 6:38 AM 12/08/2020 7:39 PM Care Teams Director Of Program Management Relationship Specialty Start Date End Date Yang Rosales MD [address] [place] [address] [place] [id number] PCP - General Gastroenterology 01/05/21 Genesis Perez MD PhD [address] [facility] [address] [place] [address] Surgeon Vascular Surgery 12/08/20
--- OUTSIDE RECORDS SUMMARY | 2024-05-16 13:17 | XMS_ITS | Clinical Summary ---
Author Organization [facility] Address [address] [place] [id number] Care Team Providers Care High Voltage Electrician Name Role Phone Genesis Perez MD PhD Unavailable [phone] Yang Rosales MD Primary Care Provider Allergies [...] (heart failure with re duced ejection fraction) (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 Gender Identity Not on file Sexual Orientation Not on file Obstetrics History Last Filed Vital Signs Vital Sign Reading [...] 12/22/2020 2:20 PM CDT Plan of Treatment Health Maintenance Due Date Last Done Comments Breast Cancer Screening-Mammogram 1960 Cervical Cancer Screening 1960 Colon Cancer Screening-Colonoscopy 1960 Depression Screening 1960 Hepatitis C Screening 1960 DTaP/Tdap/Td Vaccine (1 - Tdap) 08/12/1971 Hepatitis B Screening 1978 Regular Well Visit/Exam 18-64 1978 Pneumococcal vaccine <65 (1 of 2 - PCV) 08/12/1979 Zoster Vaccine (1 of 2) 2010 Influenza Vaccine (#1) 2023 03/07/2018, 2014 Medical Devices Implanted Type Area Salesperson Used Cars Device Identifier Shelf Expiration Date Model / Serial / Lot Terumo Cardio Vascular [id number] Gelsoft Plus Vascutek 12/6mm 45cm Main Leg Bore Reduced - [id number] - [id number] Implanted:Qty : 1 on 12/01/2020 by Genesis Perez MD PhD at [facility] Graft N/A: Aorta Terumo Card[employer] V[employer] [id number] 12/17/2022 [id number] / [id number] / [id number] Insurance [facility] Advance Directives For more information, please contact: [phone] * Full Code (Latest Code Status on File) Date Activated Date Inactivated Comments 11/25/2020 6:38 AM 12/08/2020 7:39 PM Care Teams High Voltage Electrician Relationship Specialty Start Date End Date Yang Rosales MD [address] [facility] [address] [place] [address] PCP - General Gastroenterology 01/05/21 Genesis Perez MD PhD [address] [facility] [address] [place] [address] Surgeon Vascular Surgery 12/08/20
--- OUTSIDE RECORDS SUMMARY | 2024-05-16 13:18 | XMS_ITS | Data Portability ---
Author Organization [facility] Address [address] [place] [address] Care Team Providers Care Supervisor Mixing Name Role Phone YANG ROSALES Primary Care Provider [phone] Assessment No assessment recorded. Plan of Treatment Reminders Order Date Submit Date Provider Last Modified By Organization Details Last Modified Time Details Appointments ANY 15 2024 04:00P M Yang Rosales MD Not available Not available Not available Lab None recorded. Referral behaviora health referral 2023 024 АННАVALERIE Perdomo [facility], [address] [place], [address], 03/08/2024 15:27:46 home health referral 2022 023 [email or web address] [address], [address], [place], [address], 09/05/2023 08:35:45 Procedures None recorded. Surgeries None recorded. Imaging None recorded. Medication Orders Boost High Protein 0.06 gram-1 kcal/mL oral liquid 2023 024 [facility], [address] [place], [address], 02/13/2024 10:35:22 loratadin e 10 mg tablet 2023 024 [id number], [address] , [place], [place], [id number], 08/24/2023 17:38:00 Symbicort 160 mcg-4.5 mcg/actua tion HFA aerosol inhaler 2023 024 [facility] #06290, [address], [place], [place], [id number], 08/24/2023 17:38:02 atorvasta tin 80 mg tablet 2023 024 [facility] #[id number], [address], [place], [place], [id number], 08/24/2023 17:38:04 Boost High Protein 0.06 gram-1 kcal/mL oral liquid 2023 024 [facility] #46676, [address], [place], [place], [id number], 08/24/2023 17:37:58 albuterol sulfate HFA 90 mcg/actua tion aerosol inhaler 2023 024 [facility] #97500, [address], [place], [place], [id number], 08/24/2023 17:38:03 ipratropi um 0.5 mg-albute rol 3 mg (2.5 mg base)/3 mL nebulizat ion soln 2023 024 [facility]45082, [address], [place], [place], [id number], 08/24/2023 17:38:03 Eliquis 5 mg tablet 2023 024 [facility] #09800, [address], [place], [place], [id number], 08/24/2023 17:38:01 losartan 50 mg tablet 2023 024 [facility] #24697, [address], [place], [place], [id number], 08/24/2023 17:38:03 metoprolo l succinate ER 50 mg tablet,ex tended release 24 hr 2023 024 [facility] #28182, [address], [place], [place], [id number], 08/24/2023 17:38:02 venlafaxi ne 37.5 mg tablet 2023 024 [facility] #66957, [address] , [place], [place], [id number], 08/24/2023 17:38:02 gabapenti n 300 mg capsule 2023 024 [facility] #60443, [address] , [place], [place], [id number], 08/24/2023 17:38:00 Eliquis 5 mg tablet [address] [facility] #04770, [address] , [place], [place], [id number], 02/22/2023 16:41:27 Boost High Protein 0.06 gram-1 kcal/mL oral liquid 2022 023 [facility] #41548, [address] , [place], [place], [id number], 02/22/2023 16:59:46 hydrocort isone 0.5 % topical cream 2022 024 [facility] #47585, [address] [place], [place], [id number], 08/24/2023 16:46:36 loratadin e 10 mg tablet 2022 023 [facility] #52971, [address] [place], [place], [id number], 09/26/2022 16:11:32 fluticaso ne propionat e 50 mcg/actua tion nasal spray,bertha pension 2022 023 [facility]А [facility]33297, [address] [place], [place], [id number], 09/26/2022 16:11:31 Levaquin 500 mg tablet 2022 023 [email or web address] Not available 04/26/2022 15:32:07 Patient TargetsNo targets recorded. Patient Instructions Encounter Date Encounter Id Patient Instructions Last Modified By Organization Details Last Modified Time 09/26/2022 [id number] abdominal pain: care instructions [email or web address] Not available 09/26/2022 16:11:16 allergies: care instructions [email or web address] Not available 09/26/2022 16:11:17 managing your allergies: care instructions [email or web address] Not available 09/26/2022 16:11:17 anxiety disorder : care instructions [email or web address] Not available 09/26/2022 16:11:16 learning about anxiety disorders [email or web address] Not available 09/26/2022 16:11:17 chronic obstructive pulmonary disease (COPD): care instructions Not available 09/26/2022 16:11:16 learning about copd and how to prevent lung infections [email or web address] Not available 09/26/2022 16:11:17 learning about high blood pressure [email or web address] Not available 09/26/2022 16:11:17 eating healthy foods: care instructions [email or web address] Not available 09/26/2022 16:11:17 08/24/2023 [id number] Peripheral Arterial Disease (PAD): Care Instructions [email or web address] Not available 08/24/2023 17:37:49 learning about high blood sugar [email or web address] Not available 08/24/2023 17:37:49 learning about high blood pressure [email or web address] Not available 08/24/2023 17:37:49 neuropathic pain : care instructions [email or web address] Not available 08/24/2023 17:37:49 02/12/2024 [id number] learning about mood disorders na Not available 02/13/2024 10:29:40 eating healthy foods: care instructions na Not available 02/12/2024 22:40:58 Reason for Referral Home Health Referral for His tory of acute respiratory failure Recently admitted for acute respiratort arrest. Started on O2. Needs Home PT/OT/ nurse visits for medicine training/social service to assess home needs Referring Physician: Yagn Rosales, Internal Medicine, Encounter Date: 02/22/2023 Behavioral Health Referral f or Depressive disorder Not motivated to do much Referring Physician: Yang Rosales, Internal Medicine, Encounter Date: 02/12/2024 Results Created Date Observation Date Name Description Value Unit Range Abnormal Flag Note LastModifiedBy Organization Detail LastModifiedTime 12/23/1912/22/2022 XR, chest No observ ation record ed. [email or web address] [facility] [address] [place], [address], 12/22/2022 05:15:46 12/23/19 23 12/22/2022 CT, abdom en + pelvi s, w/ contr ast No observ ation record ed. [facility] [address] [place], [address], 12/22/2022 08:53:10 12/25/19 23 12/24/2022 XR, chest No observ ation record ed. [address] [place], [address], 12/26/2022 10:27:49 12/25/19 23 12/24/2022 CT, angio gram, chest , w/ contr ast No observ ation record ed. [address] [place], [address], 12/26/2022 10:28:27 01/05/20 23 01/04/2023 XR, chest No observ ation record ed. [facility] [address] [place], [address], 01/04/2023 09:00:36 01/05/20 23 01/04/2023 CT, angio gram, chest , w/ contr ast No observ ation record ed. [address] [place], [address], 01/11/2023 11:26:46 01/06/20 23 01/05/2023 XR, chest No observ ation record ed. [address] [place], [address], 01/11/2023 11:27:42 01/06/2001/05/2023 XR, abdom en No observ ation record ed. [address] [place], [address], 01/11/2023 11:28:05 01/06/20 23 01/05/2023 CT, head, w/o contr ast No observ ation record ed. [address] [place], [address], 01/11/2023 11:28:38 01/11/20 23 01/10/2023 XR, chest No observ ation record ed. [address] [place], [address], 01/11/2023 11:29:34 01/13/20 23 01/12/2023 XR, chest No observ ation record ed. [address] [facility] [address] [place], [address], 01/25/2023 15:00:41 01/19/20 23 01/18/2023 XR, chest No observ ation record ed. [address] [place], [address], 01/25/2023 15:00:51 01/21/20 23 01/20/2023 XR, chest No observ ation record ed. [email or web address] [facility] [address], [place], [address], 01/25/2023 15:01:01 Result Notes None recorded. Problems Name Problem SNOMED Code Status Onset Date Resolution Date Notes Provider Name and Address Organization Details Recorded Time Bronchit is 27245823 Active 2017 Not Available [facility] 2 07:20:31 Tobacco user 647975798 Completed 201708/24/2023 Yang Rosales MD Attn: Accounting ,[address] [facility], [place], [address] , [place] 4 17:28:25 Depressi ve disorder 28188627 Active 2017 Not Available [facility] 2 07:20:31 Peripher al arterial occlusiv e disease 591751337 Active 2017 Not Available [facility] 2 07:20:31 Neuropat hy 511988858 Active 2017 Not Available [facility] 2 07:20:31 Spasm 20125873 Active 2017 both legs Not Available [facility] 2 07:20:31 Steatosi s of liver 127360223 Active 2017 Not Available [facility] 2 07:20:31 Generali zed aches and pains 82719216 Active 2017 Not Available [facility] 2 07:20:31 Hypergly cemia 32998159 Active 2017 Not Available [facility] 2 07:20:31 Active immuniza tion Active 2017 Not Available [facility] 2 07:20:31 Coronary atherosc lerosis 378193425 Active 2018 Not Available [facility] 2 07:20:31 Chronic pain syndrome 865067595 Active 2019 Not Available [facility] 2 07:20:31 Contact dermatit is caused by urushiol from [facility] han 202775667 Active 2020 Not Available [facility] 2 07:20:31 Moderate protein- calorie malnutri tion (weight for age 60-74 percent of standard ) 771836861 Active 2021 Yang Rosales MD Attn: Accounting ,[address] [facility], [place], [address] , [place] - [facility] 2 16:15:53 Cellulit is 432991528 Active 2021 periumbi lical Yang Rosales MD Attn: Accounting ,[address] [facility], [place], [address] , [place] - [facility] 2 16:26:17 Abdomina l pain 58727497 Active 2021 Yang Rosales MD Attn: Accounting ,[address] [facility], [place], [address] , [place] - [facility] 2 13:34:10 Insect bite of hand 803532660 Active 2022 Yang Rosales MD Attn: Accounting ,[address] [facility], [place], [address] , [place] - [facility] 3 16:03:36 Allergic rhinitis 36048253 Active 2022 Yang Rosales MD Attn: Accounting ,[address] [facility], [place], [address] , [place] - [facility] 3 16:06:20 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 22087886 Active 2022 Yang Rosales MD Attn: Accounting ,[address] [facility], [place], [address] , [place] - [facility] 3 15:55:13 History of acute respirat ory failure 72968528484 517748 Active 2022 Yang Rosales MD Attn: Accounting ,[address] [place], [address] , [place] - [facility] 3 16:43:17 Dependen ce on continuo us suppleme ntal oxygen 37535692873 103 Active 2023 Yang Rosales MD Attn: Accounting ,[address] [facility], [place], [address] , [place] - [facility] 4 20:49:35 Upper respirat ory infectio n 68242297 Active 2023 Yang Rosales MD Attn: Accounting ,[address] [facility], [place], [address] , [place] - [facility] 4 06:41:09 Backache 959156365 Active Not Available [facility] 2 07:20:31 Anxiety disorder 672120324 Active Not Available [facility] 2 07:20:31 Pressure ulcer of lower back Active Not Available [facility] 2 07:20:31 Acute myocardi al infarcti on of inferola teral wall 39704740 Completed 12/29/2016 Yang Rosales MD Attn: Accounting ,[address] [facility], [place], [address] , [place] - [facility] 7 14:50:05 Decrease in appetite 45466591 Active Not Available [facility] 2 07:20:31 Pressure injury of buttock 225187342 Active Not Available [facility] 2 07:20:31 Pressure ulcer stage 2 Active Not Available [facility] 2 07:20:31 [facility] hyperten thierno 52655402 Active Not Available [facility] 2 07:20:31 Pain in left lower limb 078223448 Active Not Available [facility] 2 07:20:31 Pain in right lower limb 161774500 Active Not Available [facility] 2 07:20:31 Acute bronchit is 56393408 Active Not Available [facility] 2 07:20:31 Cough 19904457 Active Not Available [facility] 2 07:20:32 Chronic obstruct ariela pulmonar y disease 09241482 Active 2016 Not Available [facility] 2 07:20:31 History of myocardi al infarcti on 212731115 Active 2016 Not Available [facility] 07:20:31 Notes:Some problems listed i n Document: #[id number] could not be added to this patient's chart. Please review this document and add these problems to the patient's chart manually as needed. Problem Notes None recorded. Procedures Surgical History Date Name Laterality Status Provider Name and Address Organization Details Recorded Time Other completed Angel bennett [place] 09/03/2014 16:27:47 Other completed Angel bennett [place] 09/03/2014 16:27:47 Imaging Results Imaging Date Name Status LastModified by [facility] Details LastModified Time 12/22/2022 XR, chest completed [email or web address] [facility] [address] [place], [address], 12/22/2022 05:15:46 12/22/2022 CT, abdomen + pelvis, w/ contrast completed [facility] [address] [place], [address], 12/22/2022 08:53:10 12/24/2022 XR, chest completed [email or web address] [facility] [address] [place], [address], 12/26/2022 10:27:49 12/24/2022 CT, angiogram, chest, w/ contrast completed [address] [place], [address], 12/26/2022 10:28:27 01/04/2023 XR, chest completed [facility] [address] [place], [address], 01/04/2023 09:00:36 01/04/2023 CT, angiogram, chest, w/ contrast completed [address] [place], [address], 01/11/2023 11:26:46 01/05/2023 XR, chest completed [email or web address] [facility] [address] [place], [address], 01/11/2023 11:27:42 01/05/2023 XR, abdomen completed [email or web address] [facility] [address] [place], [address], 01/11/2023 11:28:05 01/05/2023 CT, head, w/o contrast completed [email or web address] [place], [address], 01/11/2023 11:28:38 01/10/2023 XR, chest completed [email or web address] [facility] [address] [place], [address], 01/11/2023 11:29:34 01/12/2023 XR, chest completed [email or web address] [facility] [address] [place], [address], 01/25/2023 15:00:41 01/18/2023 XR, chest completed [email or web address] [facility] [address] [place], [address], 01/25/2023 15:00:51 01/20/2023 XR, chest completed [email or web address] [facility] [address] [place], [address], 01/25/2023 15:01:01 Procedure Notes None recorded. Medical Equipment None Reported. Allergies Allergen ID Allergen Name Allergen Category Reaction Reaction Severity Criticality Documentation Date Start Date Code Code System Note Provider Name and Address Organization Details Recorded Time 73635 Product containin g penicilli n (product) medicatio n itching Not available Not available 09/03/2014 25229 8001 SNOMED Not Available Not Available Not Available Medications Name Sig Start Date Stop Date Status Note LastModified by Organization Details LastModified Time Prescript ion - Renewal 08/02 completed Script for refill on Oxycodon e. Not Available Not Available Not Available losartan 50 mg tablet TAKE 1 TABLET BY MOUTH EVERY DAY active Not Available Not Available No t Available cyclobenz aprine 10 mg tablet Take 1 tablet 3 times a day by oral route as needed. 09/26 completed Not Available Not Available Not Available Mapap Extra Strength 500 mg tablet Take 2 tablets twice a day by oral route. 08/02 completed Not Available Not Available Not Available promethaz ine-DM 6.25 mg-15 mg/5 mL oral syrup Take 5 mL twice a day by oral route as needed. 08/02 completed Not Available Not Available Not Available atorvasta tin 80 mg tablet TAKE 1 TABLET BY MOUTH EVERY DAY IN THE EVENING active Not Available Not Available No t Available venlafaxi ne ER 37.5 mg capsule,e xtended release 24 hr 04/24 completed Not Available Not Available Not Available prednison e 10 mg tablet 08/02 completed Not Available Not Available Not Available venlafaxi ne ER 75 mg capsule,e xtended release 24 hr 04/24 completed Not Available Not Available Not Available nicotine 14 mg/24 hr daily transderm al patch 05/31 completed Not Available Not Available Not Available ipratropi um 0.5 mg-albute rol 3 mg (2.5 mg base)/3 mL nebulizat ion soln USE 1 VIAL VIA NEBULIZE R THREE TIMES DAILY active Not Available Not Available No t Available enalapril maleate 10 mg tablet 07/24 completed Not Available Not Available Not Available enalapril maleate 5 mg tablet 12/29 completed Not Available Not Available Not Available cetirizin e 10 mg tablet Take 1 tablet every day by oral route. 12/29 completed Not Available Not Available Not Available azithromy maddi 250 mg tablet TAKE 2 TABLETS (500 MG) BY ORAL ROUTE ONCE DAILY FOR 1 DAY THEN 1 TABLET (250 MG) BY ORAL ROUTE ONCE DAILY FOR 4 DAYS 2024 active Not Available Not Available Not Avai lable metoprolo l succinate ER 50 mg tablet,ex tended release 24 hr TAKE 1 TABLET BY MOUTH EVERY DAY active Not Available Not Available No t Available hydrocodo ne 5 mg-acetam inophen 325 mg tablet 11/13 completed Not Available Not Available Not Available enalapril maleate 20 mg tablet 07/24 completed Not Available Not Available Not Available prednison e 20 mg tablet TAKE 3 TABLETS BY MOUTH EVERY DAY FOR 5 DAYS 03/23 completed Not Available Not Available Not Available clonazepa m 0.5 mg tablet Take 0.5 tablets twice a day by oral route. 07/24 completed Not Available Not Available Not Available clonazepa m 1 mg tablet 07/24 completed Not Available Not Available Not Available clindamyc in HCl 150 mg capsule Take 2 capsules 3 times a day by oral route with meals for 7 days. 05/31 completed Not Available Not Available Not Available clopidogr el 75 mg tablet 12/29 completed Not Available Not Available Not Available aspirin 81 mg tablet,de layed release 11/16 completed Not Available Not Available Not Available tramadol 50 mg tablet TAKE 1 TABLET BY MOUTH EVERY 6 HOURS NEEDED 08/23 completed Not Available Not Available Not Available guaifenes in 100 mg/5 mL oral liquid Take 10 mL 3 times a day by oral route. 02/18 completed Not Available Not Available Not Available simvastat in 40 mg tablet 05/31 completed Not Available Not Available Not Available warfarin 3 mg tablet 08/10 completed Not Available Not Available Not Available prednison e 10 mg tablets in a dose pack FOLLOW PACKAGE DIRECTIO NS 08/23 completed Not Available Not Available Not Available alprazola m 0.25 mg tablet Take 1 tablet every day by oral route at bedtime. 07/24 completed Not Available Not Available Not Available aspirin 325 mg tablet,de layed release TAKE 1 TABLET BY MOUTH EVERY MORNING active Not Available Not Available No t Available benzonata te 100 mg capsule Take 1 capsule( s) 3 times a day by oral route as needed for cough 05/31 completed Not Available Not Available Not Available cephalexi n 500 mg capsule 07/13 completed Not Available Not Available Not Available pantopraz ole 40 mg tablet,de layed release Take 1 tablet every day by oral route before meals. 09/26 completed REcalled Not Available Not Available Not Available venlafaxi ne 37.5 mg tablet TAKE 1 TABLET BY MOUTH TWICE DAILY 2024 active Not Available Not Available Not Avai lable warfarin 5 mg tablet 08/10 completed Not Available Not Available Not Available ibuprofen 400 mg tablet 07/13 completed Not Available Not Available Not Available metoprolo l tartrate 50 mg tablet 09/26 completed Not Available Not Available Not Available gabapenti n 300 mg capsule TAKE 1 CAPSULE BY MOUTH THREE TIMES DAILY active Not Available Not Available No t Available buspirone 7.5 mg tablet TAKE 1 TABLET BY MOUTH TWICE DAILY NEEDED 08/23 completed Not Available Not Available Not Available budesonid e 0.5 mg/2 mL suspensio n for nebulizat ion 08/23 completed Not Available Not Available Not Available mupirocin 2 % topical ointment APPLY A SMALL AMOUNT TO THE AFFECTED AREA BY TOPICAL ROUTE 3 TIMES PER DAY 03/23 completed Not Available Not Available Not Available levofloxa maddi 500 mg tablet Take 1 tablet every 24 hours by oral route after meals for 10 days. 04/26 completed Not Available Not Available Not Available levofloxa maddi 750 mg tablet Take 1 tablet every day by oral route. 03/23 completed Not Available Not Available Not Available albuterol sulfate HFA 90 mcg/actua tion aerosol inhaler INHALE 2 PUFFS BY MOUTH FOUR TIMES DAILY active Not Available Not Available No t Available fluticaso ne propionat e 50 mcg/actua tion nasal spray,bertha pension SHAKE LIQUID AND USE 2 SPRAYS IN EACH NOSTRIL DAILY active Not Available Not Available No t Available lisinopri l 2.5 mg tablet Take 1 tablet every day by oral route. 08/02 completed Not Available Not Available Not Available loratadin e 10 mg tablet TAKE 1 TABLET BY MOUTH ONCE DAILY active Not Available Not Available No t Available naproxen 500 mg tablet Take 1 tablet twice a day by oral route with meals. 08/02 completed Not Available Not Available Not Available oxycodone 5 mg tablet Take 1 tablet every 12 hours by oral route as needed. 12/29 completed Not Available Not Available Not Available azithromy maddi 500 mg tablet TAKE 1 TABLET BY MOUTH EVERY DAY 08/23 completed Not Available Not Available Not Available metoprolo l tartrate 25 mg tablet 08/23 completed Not Available Not Available Not Available Atrovent HFA 17 mcg/actua tion aerosol inhaler INHALE TWO PUFFS BY MOUTH FOUR TIMES DAILY 02/18 completed Not Available Not Available Not Available Miralax 07/13 completed Not Available Not Available Not Available Symbicort 160 mcg-4.5 mcg/actua tion HFA aerosol inhaler INHALE 1 PUFF BY MOUTH TWICE DAILY active Not Available Not Available No t Available cholecalc iferol (vitamin D3) 1,250 mcg (50,000 unit) capsule active Not Available Not Available Not Available venlafaxi ne ER 37.5 mg tablet,ex tended release 24 hr 03/23 completed Not Available Not Available Not Available Eliquis 5 mg tablet TAKE 1 TABLET BY MOUTH TWICE DAILY active Not Available Not Available No t Available Aerospan 80 mcg/actua tion HFA aerosol inhaler Inhale 2 puffs twice a day by inhalati on route. 11/13 completed Not Available Not Available Not Available Boost High Protein 0.06 gram-1 kcal/mL oral liquid Take 240 mL twice a day by oral route. 2023 active Not Available Not Available Not Avai lable metoprolo l tartrate 75 mg tablet 07/13 completed Not Available Not Available Not Available Chest Congestio n Relief DM 10 mg-100 mg/5 mL oral syrup Take 10 mL 4 times a day by oral route. 03/23 completed Not Available Not Available Not Available Vitals Date Recorded Body height Body mass index (BMI) Body weight Body temperature Heart rate Oxygen saturation Oxygen saturation in Arterial blood by Pulse oximetry Systolic blood pressure Diastolic blood pressure Provider Name and Address Organization Details Last Updated DateTime 3 172.72 cm 18.5 kg/m2 69009.2 7 g 98.1 [degF] 132 /min 92 % 92 % 116 mm[Hg] 84 mm[Hg] Dariana Hanley MA [facility] 3 15:04:52 Date Recorded Body height Body mass index (BMI) Body weight Heart rate Oxygen saturation Oxygen saturation in Arterial blood by Pulse oximetry Body temperature Systolic blood pressure Diastolic blood pressure Provider Name and Address Organization Details Last Updated DateTime 3 172.72 cm 17.8 kg/m2 25080.3 1 g 120 /min 94 % 94 % 98 [degF] 126 mm[Hg] 78 mm[Hg] Dariana Hanley MA [facility] 3 15:03:19 Date Recorded Body height Body mass index (BMI) Body weight Body temperature Oxygen saturation Oxygen saturation in Arterial blood by Pulse oximetry Heart rate Systolic blood pressure Diastolic blood pressure Provider Name and Address Organization Details Last Updated DateTime 3 172.72 cm 15.2 kg/m2 72738.2 4 g 98 [degF] 95 % 95 % 139 /min 120 mm[Hg] 78 mm[Hg] Dariana Hanley MA [facility] 3 15:13:46 Date Recorded Body height Body mass index (BMI) Body weight Heart rate Oxygen saturation Oxygen saturation in Arterial blood by Pulse oximetry Systolic blood pressure Diastolic blood pressure Provider Name and Address Organization Details Last Updated DateTime 4 172.72 cm 16.6 kg/m2 43196.5 7 g 103 /min 90 % 90 % 126 mm[Hg] 82 mm[Hg] Dariana Hanley MA [facility] 4 17:01:24 Date Recorded Body height Body mass index (BMI) Body weight Heart rate Systolic blood pressure Diastolic blood pressure Provider Name and Address Organization Details Last Updated DateTime 4 172.72 cm 15.7 kg/m2 78341.0 9 g 98 /min 90 mm[Hg] 61 mm[Hg] Haydee Blankenship [place] [facility] 4 17:48:24 Social History Question Answer Notes LastModified by Organizat ion Details LastModified Time Tobacco Smoking Status Former Smoker Dariana Hanley MA [facility], [facility] [address] 02/18/2021 15:19:08 What Is Your Level Of Alcohol Consumption? Occasional Information not available 09/03/2014 What Is Your Level Of Caffeine Consumption? Heavy Information not available 09/03/2014 What Was The Date Of Your Most Recent Tobacco Screening? 02/12/2024 Information not available 02/12/2024 At What Age Did You Start Smoking Tobacco? 15 Information not available 09/03/2014 How Much Tobacco Do You Smoke? 0.5 PPD Information not available 02/05/2019 Has Tobacco Cessation Counseling Been Provided? Yes Information not available 09/26/2022 On What Date Was Tobacco Cessation Counseling Provided? 02/12/2024 Information not available 02/12/2024 How Many Years Have You Smoked Tobacco? 40 Information not available 02/05/2019 Do You Or Have You Ever Used Any Other Forms Of Tobacco Or Nicotine? No Information not available 09/26/2022 Sex: Unknown Functional Status None recorded. Mental Status None recorded. Family History Relationship Description Onset Age of this Age Resolved Age Notes LastModified by Organization Details LastModified Time Mother Hypertensive disorder [email or web address] Not available 04/2015 13:08:14 Medical History Condition Response Coronary Artery Disease Y High Blood Pressure Y COPD Y Heart Attack (ID) Y Anxiety Disorder Y Stroke Y High Cholesterol Y Heart Failure Y Gynecological HistoryNo gynecological history recorded. Obstetrics History GPAL:G 0 P 0 0 0 0 Immunizations Vaccine Type Date Status Note Provider Nam e and Address Organization Details Recorded Time Influenza, split virus, quadrivalent, preservative 8 completed Not Available [facility]06[facility] 02:42:37 Past Encounters Encounter ID Performer Location Encounter Start Date Encounter Closed Date Diagnosis/Indication Diagnosis SNOMED-CT Code Diagnosis ICD10 Code Diagnosis Note [id number] Shwetha Izaguirre (Adult Med) [address] [place] [address] [phone] 0 09/03/2014 16:10:47 09/04/2014 09:22:03 Backache [id number] Demonstrat ed back with stretching exercises Anxiety disorder 826015497 [id number] Vaishali Izaguirre (Adult Med) [address] [place] [address] [phone] 0 01/13/2015 16:12:11 01/15/2015 13:58:00 Acute myocardial infarction of inferolateral wall 62468852 I21.19 Decrease in appetite 643 26554 R63.0 Pressure i njury of buttock 655164434 L89.302 Pressure u lcer stage 2 860688402 L89.92 Anxiety disorder 6770851 06 F41.9 Essential hypertension 40847001 I10 Backache 063545776 M54.9 Demonstrat ed back with stretching exercises Pain in le ft lower limb 442881520 M79.605 Pain in ri ght lower limb 599533788 M79.604 [id number] Shwetha Izaguirre (Adult Med) [address] [place] [address] [id number] 0 04/21/2015 12:07:24 04/21/2015 17:42:34 Pain in left lower limb 533100507 M79.605 Essential hypertension 26248409 I10 Backache 769364281 M54.9 Demonstrat ed back with stretching exercises Anxiety disorder 2817874 06 F41.9 Cough 89992964 R05 Decrease in appetite 643 70929 R63.0 [id number] MD Zina Chavarria (Adult Med) [address] [place] [address] [phone] 0 12/29/2016 13:49:16 12/29/2016 16:01:35 Chronic obstructive pulmonary disease 15192863 J44.9 History of myocardial infarction 965982030 I25.2 Essential hypertension 87990721 I10 [id number] IGNACIO Carlson (Adult Med) [address] [place] [address] [phone] 0 12/29/2016 13:53:48 12/29/2016 16:40:58 [id number] MD Zina Chavarria (Adult Med) [address] [place] [address] [id number] 0 03/22/2017 10:47:44 03/22/2017 14:38:21 Chronic obstructive pulmonary disease 82485293 J44.9 Essential hypertension 57943747 I10 Tobacco user 911196795 Z 72.0 Bronchitis 07302774 J40 [id number] MD Zina Chavarria (Adult Med) [address] [place] [address] [phone] 0 05/03/2017 15:17:13 05/03/2017 16:57:52 Essential hypertension 37525441 I10 Neuropathy 779228472 G62 .9 Will try to manage without meds Depressive disorder 3548 9007 F32.9 [id number] MD Zina Chavarria (Adult Med) [address] [place] [address] [phone] 0 07/24/2017 14:05:04 07/25/2017 11:27:14 Bronchitis 70699786 J40 [id number] MD Zina Chavarria (Adult Med) [address] [place] [address] [phone] 0 08/10/2017 15:32:43 08/15/2017 12:10:28 Generalized aches and pains 32189794 R52 Chronic ob structive pulmonary disease 49711217 J44.9 Bronchitis 86916039 J40 [id number] Yang Rosales MD [facility] (Adult Med) [address] [place] [address] [id number] 0 11/13/2017 16:49:20 11/14/2017 11:05:18 Generalized aches and pains 60103562 R52 Combine naproxen with acetaminop hen BID Chronic ob structive pulmonary disease 94769520 J44.9 Decrease in appetite 643 07732 R63.0 Hyperglycemia 07337292 R 73.9 [id number] Yang Rosales MD [facility] (Adult Med) [address] [place] [address] 02717-714 0 03/07/2018 15:17:31 03/08/2018 09:48:15 Chronic obstructive pulmonary disease 13578249 J44.9 Bronchitis 67672948 J40 Peripheral arterial occlusive disease 825488304 I73.9 Active immunization 3387 9002 Z23 [id number] Yang Rosales MD [facility] (Adult Med) [address] [place] [address] 45714-097 0 05/31/2018 16:37:31 06/01/2018 09:25:02 History of myocardial infarction 516512234 I25.2 Chronic ob structive pulmonary disease 49311292 J44.9 OK to resume Albuterol nebulizer and atrovent HFA Essential hypertension 83532617 I10 Peripheral arterial occlusive disease 643303462 I73.9 Coronary atherosclerosis 728217717 I25.119 F/U with cardiology post stent placement [id number] Yang Rosales MD [facility] (Adult Med) [address] [place] [address] [phone] 0 08/02/2018 16:05:42 08/03/2018 09:30:08 Coronary atherosclerosis 266350472 I25.119 F/U with cardiology post stent placement Peripheral arterial occlusive disease 213045374 I73.9 Discussed importance of smoking cessation. Suggested very gradual decrease to as little as 1 cig /d every 2-3 weeks Depressive disorder 9030 9007 F32.9 Increase venlafaxin e Tobacco user 783414596 Z 72.0 Chronic ob structive pulmonary disease 69956726 J44.9 OK to resume Albuterol nebulizer and atrovent HFA [id number] MD Zina Chavarria (Adult Med) [address] [place] [address] [phone] 0 11/27/2018 17:07:11 11/28/2018 13:10:18 Neuropathy 194032114 G62.9 Will try to manage without meds Peripheral arterial occlusive disease 847159522 I73.9 Discussed importance of smoking cessation. Suggested very gradual decrease to as little as 1 cig /d every 2-3 weeks Tobacco user 351348170 Z 72.0 Bronchitis 76727106 J40 Decrease in appetite 643 09395 R63.0 boost [id number] MD Zina Chavarria (Adult Med) [address] [place] [address] [phone] 0 02/05/2019 16:58:39 02/06/2019 11:59:44 Spasm 26974350 R25.2 [id number] MD Zina Chavarria (Adult Med) [address] [place] [address] [id number] 0 08/05/2019 16:09:59 08/06/2019 14:14:21 Tobacco user 053162954 Z72.0 Chronic ob structive pulmonary disease 91889224 J44.9 OK to resume Albuterol nebulizer and atrovent HFA [id number] MD Zina Chavarria (Adult Med) [address] [place] [address] [id number] 0 02/19/2020 08:27:58 02/20/2020 13:30:50 Chronic pain syndrome 728430580 G89.4 Advised pt to contact marijuana dispensari es re access to prescribin g physicians [id number] MD Zina Chavarria (Adult Med) [address] [place] [address] [id number] 0 09/30/2020 14:50:47 10/06/2020 15:08:06 Pain in right lower limb 055615952 M79.604 Peripheral arterial occlusive disease 179406021 I73.9 Discussed importance of smoking cessation. Suggested very gradual decrease to as little as 1 cig /d every 2-3 weeks Pain in le ft lower limb 717194919 M79.605 Contact de rmatitis caused by urushiol from [facility] han 449131643 L25.5 Improved. Complete prednisone and start antihistam ine [id number] MD Zina Chavarria (Adult Med) [address] [place] [address] [id number] 0 12/29/2020 15:37:37 01/05/2021 12:45:55 Peripheral arterial occlusive disease 551090804 I73.9 Recent redo of AF bypass. F'U with surg Essential hypertension 81041946 I10 Neuropathy 960148024 G62 .9 Coronary atherosclerosis 891263549 I25.119 F/U with cardiology post stent placement [id number] MD Zina Chavarria (Adult Med) [address] [place] [address] 69197-731 0 02/18/2021 15:04:20 02/19/2021 10:33:33 Peripheral arterial occlusive disease 605611190 I73.9 Recent redo of AF bypass. F'U with surg Essential hypertension 53124131 I10 Chronic ob structive pulmonary disease 54161221 J44.9 OK to resume Albuterol nebulizer and atrovent HFA Neuropathy 707541863 G62 .9 Spasm 63986461 R25.2 [id number] MD Zina Chavarria (Adult Med) [address] [place] [address] [phone] 0 07/13/2021 15:38:29 07/15/2021 05:33:26 Bronchitis 31863728 J40 . Will rx symbicort Coronary atherosclerosis 091511977 I25.119 F/U with cardiology post stent placement Depressive disorder 3548 9007 F32.9 Increase venlafaxin e Essential hypertension 23440706 I10 Chronic ob structive pulmonary disease 79193220 J44.9 Continue ipratropiu m [id number] MD Zina Chavarria (Adult Med) [address] [place] [address] [phone] 0 11/16/2021 15:56:06 11/17/2021 08:19:08 Chronic obstructive pulmonary disease 42460847 J44.9 Continue ipratropiu m per Dr. Rosales note on 07/13/21. Pt needs script Moderate protein-calorie malnutrition (weight for age 60-74 percent of standard) 478925679 E44.0 Cellulitis 448611589 L03 .90 [id number] MD Zina Chavarria (Adult Med) [address] [place] [address] 82756-569 0 02/01/2022 11:34:25 02/04/2022 11:56:06 Bronchitis 13875877 J40 . Will rx symbicort Chronic ob structive pulmonary disease 67040758 J44.9 Continue ipratropiu m per Dr. Rosales note on 07/13/21. Pt needs script Essential hypertension 70812098 I10 Hyperglycemia 22070432 R 73.9 Neuropathy 341574360 G62 .9 Tobacco user 881847069 Z 72.0 [id number] MD Zina Guajardo (Adult Med) [address] [place] [address] 86544-688 0 03/23/2022 14:54:38 03/24/2022 10:48:21 Infection of right ear 8128848460 734954 H66.91 Discussed with patient, she agreed to try med as ordered. F/U with her PCP. [id number] MD Zina Chavarria (Adult Med) [address] [place] [address] 18598-530 0 09/26/2022 14:32:59 09/29/2022 14:35:29 Underweight 643283881 R63.6 Insect bite of hand 2833 77707 S60.561A Abdominal pain 73722299 R10.9 Anxiety disorder 9849992 06 F41.9 Allergic rhinitis 337897 04 J30.9 Chronic ob structive pulmonary disease 50134943 J44.9 Continue ipratropiu m per Dr. Rosales note on 07/13/21. Pt needs script Essential hypertension 96232621 I10 Will do labs on return [id number] MD Zina Chavarria (Adult Med) [address] [place] [address] [phone] 0 02/22/2023 14:57:14 02/27/2023 16:25:08 Moderate protein-calorie malnutrition (weight for age 60-74 percent of standard) 250108963 E44.0 Thrombosis of arteries of upper extremity 39190003 I74.2 History of acute respiratory failure 3938168033 2413205 Z87.09 [id number] MD Zina Chavarria (Adult Med) [address] [place] [address] [phone] 0 08/24/2023 16:41:51 08/25/2023 14:40:00 Moderate protein-calorie malnutrition (weight for age 60-74 percent of standard) 367842636 E44.0 Chronic ob structive pulmonary disease 77232487 J44.9 Continue ipratropiu m per Dr. Rosales note on 07/13/21. Pt needs script Bronchitis 03406755 J40 . Will rx symbicort Coronary atherosclerosis 165078447 I25.119 F/U with cardiology post stent placement Dependence on continuous supplemental oxygen 9169565478 9103 Z99.81 Essential hypertension 48099974 I10 pt requesting BP monitor. History of myocardial infarction 524134540 I25.2 Hyperglycemia 61972073 R 73.9 Neuropathy 581415970 G62 .9 Peripheral arterial occlusive disease 318685540 I73.9 Recent redo of AF bypass. F'U with surg Thrombosis of arteries of upper extremity 64577256 I74.2 Allergic rhinitis 339227 04 J30.9 Depressive disorder 3548 9007 F32.9 Increase venlafaxin e [id number] Yang Rosales MD [facility] (Adult Med) [address] [place] [address] 57382-643 0 02/12/2024 17:10:52 02/14/2024 12:16:03 Underweight 162951548 R63.6 Order protein supplement Depressive disorder 3548 9007 F32.9 Refer to Health Concerns Section Related Observation LastModified by Organization Detai ls LastModified Time None Recorded Concern Status LastModified by Organization Details LastModified Time None Recorded Advance Directives Directive None Recorded Payers Encounter Date Sequence Insurance Name Policy Number Policy Cabrera Covered Member ID Cabrera Member ID Guarantor Name 03/23/2022 1 [facility] ON OR AFTER 09/17/20 (MEDICAID REPLACEMENT - HMO) Carly Oliveira [id number] Carly Oliveira 09/26/2022 1 [facility] ON OR AFTER 09/17/20 (MEDICAID REPLACEMENT - HMO) Carly Oliveira [id number] Carly Oliveira 02/22/2023 1 [facility] ON OR AFTER 09/17/20 (MEDICAID REPLACEMENT - HMO) Carly Oliveira [id number] Carly Oliveira 08/24/2023 1 [facility] - DOS ON OR AFTER 20 (MEDICAID REPLACEMENT - HMO) Carly Oliveira [id number] Carly Oliveira 02/12/2024 1 [facility] - DOS ON OR AFTER 20 (MEDICAID REPLACEMENT - HMO) Carly Oliveira [id number] Carly Oliveira Notes Date Note Type Note Provider Name and Address Organization Details Recorded Time 03/23/2022 text/html Right ear infect ion for few days. Office visit, allergic to penicillins, Lakisha Liriano MD Attn: Accounting,[address] [facility], [place], [address], [place] [facility] 03/23/2022 15:52:23 09/26/2022 text/html Needs med refill s. Stung by a wasp two days ago. Feels congested and stuffy. Has abdominal pain and constipation. Has used polyethylene glycol with good result. Feels depressed Yang Rosales MD Attn: Accounting,[address] [facility], [place], [address], [place] 09/26/2022 16:11:39 02/22/2023 text/html Recently admitte d to [facility] for cardiorespiratory arrest. Sent to rehab post discharge for about one week. No Pt/OT or Home health visits to date. She is currently on Home O2 and CPAP. Had clot in right arm. She has lost her appetite Yang Rosales MD Attn: Accounting,[address] [facility], [place], [address], [place] 02/22/2023 17:01:06 08/24/2023 text/html Here for routine f/u. Feels OK. Needs med refills. Has not used walker in about six months. Did not get protein supplement. Has not smoked in five months Yang Rosales MD Attn: Accounting,[address] [facility], [place], [address], [place] 08/24/2023 17:39:15 02/12/2024 text/html Accompanied b he r son.Pt is not motivated to move about much. Wants protein supplement. Yang Rosales MD Attn: Accounting,[address] [facility], [place], [address], [facility] 02/13/2024 10:30:46 OBGyn Episode No OBEpisode recorded.
--- OUTSIDE RECORDS SUMMARY | 2024-05-16 13:18 | XMS_ITS | CONTINUITY OF CARE DOCUMENT ---
Author Name sivakumar shaver Address Unknown Organization [facility] Address [address] [place] [address] Phone [phone] Care Team Providers Care Production Scheduler Name Role Phone Otis Ang MD Unavailable [phone] COBY GAN MD Unavailable RANDOLPH MCDOWELL MD Unavailable [phone] PROBLEMS Condition Status Date Provider Notes Hip pain active Fouzia Mac MD Hyperlipidemia active Nesha Rodriguez Exposure to SARS-associated coronavirus active Otis Ang MD Shortness of breath active Otis Ang MD Depression active Otis Ang MD 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 Otis Ang MD CHEST PAIN-11/28 NUC ANT ISCHEMIA EF 68 active ? Reji Maradiaga RN PVD active Otis Ang MD 12/27 MIL D ART DIS LLE BASIM MILD ART DIS ART STENT BASIM R SEVERE DISEASE DORSALIS PEDIS ARTERY 1 03/26 AIF SMART STENT HTN-10/22 STRESS ECHO NEG active Otis crawford MD 11/28 ECHO EF 60 3 /10 ECHO EF 55 09 ECHO EF 55 8 /05 STRESS ECHO NEG CAD-04/28 NUC NEG active Otis Ang MD LAD RESTENOSIS STENT NUC NEG 1 04/26 X2 CYPHER RCA- LAD Tobacco abuse active Otis Ang MD ENCOUNTERS Date Type Provider Location Encounter Diag nosis - In-person encounter Office Visit Otis Ang MD [facility] - In-person encounter Office Visit Otis Ang MD [facility] - In-person encounter Office Visit Otis Ang MD [facility] Exposure to SARS-associated coronavirus - In-person encounter Office Visit Otis Ang MD [facility] - In-person encounter Office Visit Otis Ang MD [facility] - In-person encounter Office Visit Otis Ang MD [facility] - In-person encounter Office Visit Otis Ang MD [facility] Shortness of breath - In-person encounter Office Visit Otis Ang MD [facility] - In-person encounter Office Visit Otis Ang MD [facility] - In-person encounter Office Visit Otis Ang MD [facility] Tobacco abuseDepression - In-person encounter Office Visit Otis Ang MD [facility] - In-person encounter Office Visit Otis Ang MD [facility] - In-person encounter Office Visit Otis Ang MD [facility] Tobacco abuseCAD-04/28 NUC NEGHTN-10/22 STRESS ECHO NEGPVD - In-person encounter Office Visit Otis Ang MD [facility] - In-person encounter Office Visit Otis Ang MD [facility] - In-person encounter Office Visit Otis Ang MD [facility] Tobacco abuseOld inferior wall myocardial infarction (12/2014) - In-person encounter Office Visit Otis Ang MD [facility] Family History of CVA or Stroke: - In-person encounter Office Visit Otis Ang MD [facility] - In-person encounter Office Visit Otis Ang MD [facility] - In-person encounter Office Visit Otis Ang MD [facility] - In-person encounter Office Visit Otis Ang MD [facility] - In-person encounter Office Visit Otis Ang MD [facility] - In-person encounter Office Visit Otis Ang MD [facility] - In-person encounter Office Visit Otis Ang MD [facility] - In-person encounter Office Visit Otis Ang MD [facility] CHEST PAIN-11/28 NUC ANT ISCHEMIA EF 68 - In-person encounter Office Visit Otis Ang MD [facility] - In-person encounter Office Visit Otis Ang MD [facility] - In-person encounter Office Visit Otis Ang MD [facility] - In-person encounter Office Visit Otis Ang MD [facility] VITAL SIGNS Date Observation Value Provider Body Mass Index (Ratio) 18.55 kg/m2 London Ang MD blood pressure, diastolic 87 mm[Hg] Jessy nkLogic blood pressure, systolic 135 mm[Hg] Emily kLogic blood pressure, diastolic 87 mm[Hg] Sa ra Osborn blood pressure, systolic 135 mm[Hg] Adi a Osborn oxygen saturation, oximetry 92 % Griselda Osborn respiratory rate E&M 20 /min Griselda Si ms pulse rate 106 /min Griselda Osborn blood pressure, cuff size small Sa ra Osborn weight E&M 122 [lb_av] Griselda Osborn height E&M 68 [in_i] Griselda Osborn Body Mass Index (Ratio) 20.37 kg/m2 London Ang MD blood pressure, cuff size regular Cy frank Rolf blood pressure, diastolic 80 mm[Hg] Cy frank Rolf blood pressure, systolic 130 mm[Hg] Gaby yuanmaira Bansal oxygen saturation, oximetry 96 % Jessica Bansal respiratory rate E&M 16 /min Jessica Bansal pulse rate 72 /min Jessica Андрейbel l weight E&M 134 [lb_av] Jessica Campbel l height E&M 68 [in_i] Jessica Campbel l Body Mass Index (Ratio) 20.37 kg/m2 London Ang MD blood pressure, resting Yes Alejo bryn Michael respiratory rate E&M 18 /min [facility] Rodriguez blood pressure, diastolic 86 mm[Hg] [facility] pressure, systolic 140 mm[Hg] [facility] oxygen saturation, oximetry 96 % [facility] pulse rate 107 /min Alejobryn Neil arellano weight E&M 134 [lb_av] Ilir Craw arellano height E&M 68 [in_i] Ilir Craw arellano Body Mass Index (Ratio) 21.44 kg/m2 London Ang MD blood pressure, cuff size regular Ke rri Josep blood pressure, diastolic 90 mm[Hg] Ke rri Josep blood pressure, systolic 160 mm[Hg] Debbie jacob Car oxygen saturation, oximetry 94 % Letty Car respiratory rate E&M 16 /min Letty bridges pulse rate 80 /min Otis Ang MD weight E&M 141 [lb_av] Letty castroer height E&M 68 [in_i] Letty castroer Body Mass Index (Ratio) 19.92 kg/m2 London Ang MD blood pressure, cuff size regular Cy frank Bansal blood pressure, diastolic 70 mm[Hg] Cy frank Bansal blood pressure, systolic 130 mm[Hg] Gaby Bansal oxygen saturation, oximetry 97 % Jessica Bansal respiratory rate E&M 16 /min Jessica Bansal pulse rate 87 /min Jessica Андрейbel l weight E&M 131 [lb_av] Jessica Campbel l height E&M 68 [in_i] Jessica Campbel l Body Mass Index (Ratio) 19.76 kg/m2 London Ang MD blood pressure, cuff size regular Cy frank Bansal blood pressure, diastolic 70 mm[Hg] Cy nthia Rolf blood pressure, systolic 118 mm[Hg] Gaby randy Bansal oxygen saturation, oximetry 96 % Jessica Bansal respiratory rate E&M 16 /min Jessicarandy Bansal pulse rate 81 /min Jessica Campbel l weight E&M 130 [lb_av] Jessica Campbel l height E&M 68 [in_i] Jessica Campbel l Body Mass Index (Ratio) 19.46 kg/m2 London Ang MD blood pressure, diastolic 70 mm[Hg] Da alecia Nohemi blood pressure, systolic 118 mm[Hg] Dac ia Nohemi oxygen saturation, oximetry 94 % Ana Maria Nohemi respiratory rate E&M 18 /min Ana Maria V oss pulse rate 93 /min Ana Maria Nohemi weight E&M 128 [lb_av] Ana Maria Nohemi height E&M 68 [in_i] Ana Maria Nohemi Body Mass Index (Ratio) 19.46 kg/m2 London Ang MD blood pressure, diastolic 80 mm[Hg] Da alecia Nohemi blood pressure, systolic 114 mm[Hg] Dac ia Nohemi oxygen saturation, oximetry 91 % Ana Maria Nohemi respiratory rate E&M 16 /min Ana Maria V oss pulse rate 96 /min Ana Maria Nohemi weight E&M 128 [lb_av] Ana Maria Nohemi height E&M 68 [in_i] Ana Maria Nohemi Body Mass Index (Ratio) 18.40 kg/m2 London Ang MD blood pressure, diastolic 60 mm[Hg] Da alecia Nohemi blood pressure, systolic 94 mm[Hg] Dac ia Nohemi oxygen saturation, oximetry 96 % Ana Maria Nohemi respiratory rate E&M 16 /min Ana Maria V oss pulse rate 82 /min Ana Maria Nohemi weight E&M 121 [lb_av] Ana Maria Nohemi height E&M 68 [in_i] Ana Maria Nohemi Body Mass Index (Ratio) 17.70 kg/m2 London Ang MD blood pressure, diastolic 91 mm[Hg] Noemí Houser blood pressure, systolic 151 mm[Hg] Stacy Houser oxygen saturation, oximetry 98 % Harshad Houser respiratory rate E&M 18 /min John Houser pulse rate 94 /min Harshad mendez weight E&M 116.4 [lb_av] Harshad lopez height E&M 68 [in_i] Harshad mendez Body Mass Index (Ratio) 19.00 kg/m2 London Ang MD blood pressure, cuff size regular Ke rri Josep blood pressure, diastolic 84 mm[Hg] Ke rri Josep blood pressure, systolic 142 mm[Hg] Debbie Car oxygen saturation, oximetry 97 % Letty Car respiratory rate E&M 16 /min Letty Gabe bridges pulse rate 95 /min Letty Maryanne castroer weight E&M 125 [lb_av] Letty Maryanne castroer height E&M 68 [in_i] Letty Porfirioe matthewer blood pressure, diastolic 66 mm[Hg] Ke rri Josep blood pressure, systolic 102 mm[Hg] Debbie ri Josep pulse rate 115 /min Letty Porfirioe matthewer oxygen saturation, oximetry 94 % Letty Car respiratory rate E&M 16 /min Letty G cyrus Body Mass Index (Ratio) 17.33 kg/m2 Patton rosalie Car weight E&M 114 [lb_av] Letty Clausnesabinee lder blood pressure, diastolic 78 mm[Hg] Ke rri Clausnesharan blood pressure, systolic 130 mm[Hg] Debbie Monroyfrancasabrina pulse rate 79 /min Letty Madden lder oxygen saturation, oximetry 98 % Letty Monroyfrancasabrina respiratory rate E&M 16 /min Letty yunherrera Body Mass Index (Ratio) 17.18 kg/m2 Abdi wiggins Josep weight E&M 113 [lb_av] Letty Madden lder blood pressure, diastolic 63 mm[Hg] Noemí Murillovernon HorneHouser blood pressure, systolic 104 mm[Hg] Stacy Harmansheila Houser pulse rate 72 /min Harshad Holly razon oxygen saturation, oximetry 93 % HarshadVal Horneenson respiratory rate E&M 16 /min KarleneMariama Houser Body Mass Index (Ratio) 17.00 kg/m2 Karlene Neal Houser weight E&M 111.8 [lb_av] Harshad Ozzie john blood pressure, diastolic 89 mm[Hg] Noemí Murillovernon HorneHouser blood pressure, systolic 137 mm[Hg] Stacy Mello Houser pulse rate 122 /min Harshad Holly razon oxygen saturation, oximetry 94 % Harshad Horneenson respiratory rate E&M 16 /min John Houser Body Mass Index (Ratio) 16.91 kg/m2 Karlene Houser weight E&M 111.2 [lb_av] Harshad Ozzie enson blood pressure, diastolic 66 mm[Hg] Me elizabeth Nichols blood pressure, systolic 107 mm[Hg] Manisha nievesa Nichols pulse rate 90 /min Phuong Nichols oxygen saturation, oximetry 96 % Phuong Nichols respiratory rate E&M 14 /min Phuong Nichols Body Mass Index (Ratio) 16.88 kg/m2 Sherita connell Nichols weight E&M 111 [lb_av] Phuong Nichols Body Mass Index (Ratio) 18.70 kg/m2 Anea dean [facility] blood pressure, diastolic 78 mm[Hg] An eatnoram Jones blood pressure, systolic 140 mm[Hg] Ane atris Robert pulse rate 77 /min Aneatris [facility] oxygen saturation, oximetry 99 % Aneatris [facility] respiratory rate E&M 17 /min Aneatri s [facility] weight E&M 123 [lb_av] Aneatrjohn [facility] Body Mass Index (Ratio) 27.06 kg/m2 Josette foster Narinder blood pressure, diastolic 75 mm[Hg] Dayron lerma Narinder blood pressure, systolic 140 mm[Hg] Pedro Pablo goldberg Barcenas pulse rate 93 /min Cyndi Barcenas oxygen saturation, oximetry 97 % Cyndi Barcenas respiratory rate E&M 18 /min Cyndi Barcenas weight E&M 178 [lb_av] Cyndi Barcenas pulse rate #2 107 [facility], hunt tolic, second observation 81 mm[Hg] [facility], syst olic, second observation 119 mm[Hg] [facility], oximetry 97 % [facility] 117 /min [facility] blood pressure, diastolic 94 mm[Hg] Vi ctoria Mathieuparvez blood pressure, systolic 150 mm[Hg] Adalberto amadou Mathieuparvez Body Mass Index (Ratio) 18.46 kg/m2 Patton i Josep blood pressure, diastolic 89 mm[Hg] Ke rri Josep blood pressure, systolic 135 mm[Hg] Ker ri Josep pulse rate 85 /min Letty Maryanne trejo oxygen saturation, oximetry 97 % Letty Josep respiratory rate E&M 15 /min Letty Bernal ycrus weight E&M 121 [lb_av] Letty Maryanne trejo blood pressure, diastolic 90 mm[Hg] Pola Maradiaga RN blood pressure, systolic 140 mm[Hg] Reji Ceballoss RN pulse rate 124 /min Reji Maradiaga RN oxygen saturation, oximetry 98 % Reji Ceballoss RN respiratory rate E&M 18 /min Reji shirleymere RN Body Mass Index (Ratio) 18.01 kg/m2 Reji Ceballoss RN weight E&M 118 [lb_av] Reji Ceballoss RN Body Mass Index (Ratio) 17.95 kg/m2 Laila Flowers blood pressure, diastolic 79 mm[Hg] Dayron Rosalesueber blood pressure, systolic 113 mm[Hg] Greg bradford Stueber pulse rate 86 /min Quin Stroxanaber oxygen saturation, oximetry 97 % Quin Guanber respiratory rate E&M 20 /min Quin rosado weight E&M 117.6 [lb_av] Quin Stueber height E&M 68 [in_i] Quin Stueber blood pressure, diastolic 96 mm[Hg] Dominguez blood pressure, systolic 143 mm[Hg] Adi Daniels pulse rate 69 /min Maria De Jesus Daniels oxygen saturation, oximetry 97 % Maria De Jesus Daniels respiratory rate E&M 16 /min Maria De Jesus Daniels weight E&M 122 [lb_av] Maria De Jesus Daniels blood pressure, diastolic 88 mm[Hg] Pola Maradiaga RN blood pressure, systolic 148 mm[Hg] Reji Maradiaga RN pulse rate 81 /min Reji Maradiaga RN oxygen saturation, oximetry 99 % Reji Maradiaga RN respiratory rate E&M 16 /min Reji barrera RN weight E&M 126 [lb_av] Reji Maradiaga RN blood pressure, diastolic 80 mm[Hg] Pola Maradiaga RN blood pressure, systolic 135 mm[Hg] Reji Maradiaga RN pulse rate 106 /min Reji Maradiaga RN oxygen saturation, oximetry 96 % Reji Maradiaga RN respiratory rate E&M 16 /min Reji barrera RN weight E&M 16 [lb_av] Reji Maradiaga RN blood pressure, diastolic 80 mm[Hg] Yareli seph Man[place] blood pressure, systolic 128 mm[Hg] Thuan eph [place] pulse rate 80 /min Huy [place] oxygen saturation, oximetry 99 % Huy [place] respiratory rate E&M 20 /min Huy [place] weight E&M 116 [lb_av] Huy [place] blood pressure, diastolic 72 mm[Hg] Pola Maradiaga RN blood pressure, systolic 124 mm[Hg] Reji Maradiaga RN pulse rate 74 /min Reji Maradiaga RN oxygen saturation, oximetry 97 % Reji Maradiaga RN respiratory rate E&M 18 /min Reji barrera RN weight E&M 140 [lb_av] Reji Maradiaga RN blood pressure, diastolic, right arm 88 m m[Hg] Huy [place] blood pressure, systolic, right arm 126 m m[Hg] Huy [place] blood pressure, diastolic 88 mm[Hg] Yareli seph [place] blood pressure, systolic 126 mm[Hg] Thuan eph [place] pulse rate 87 /min Huy [place] oxygen saturation, oximetry 97 % Huy [place] respiratory rate E&M 16 /min Huy [place] weight E&M 141.5 [lb_av] Huy Moreno blood pressure, diastolic 76 mm[Hg] Pola junior Maradiaga RN blood pressure, systolic 125 mm[Hg] Reji Ceballoss RN pulse rate 54 /min Reji Ceballoss RN oxygen saturation, oximetry 99 % Reji Ceballosmere CAMPO respiratory rate E&M 16 /min Reji barrera RN weight E&M 153 [lb_av] Reji Ceballosmere CAMPO blood pressure, diastolic, right arm 89 m m[Hg] Vivianerosalie Avina blood pressure, systolic, right arm 122 m m[Hg] Viviane Avina blood pressure, diastolic 81 mm[Hg] Mathieu Avina blood pressure, systolic 120 mm[Hg] Stafford pulse rate 80 /min Viviane Avina oxygen saturation, oximetry 99 % Viviane Avina respiratory rate E&M 16 /min Viviane larios weight E&M 146 [lb_av] Vivinae Avina ALLERGIES Allergy Name Onset Date Reaction Criticality Status EKG PATCHES Low Criticality active PENICILLIN Low Criticality active RESULTS Date Observation Value Provider Reference Range Interpretation Location 07/30 prothrombin time (patient) 10.3 s [facility] 9.1-12.0 07/30 international normalized ratio (INR) 1.0 [facility] 0.9-1.2 07/30 lipoprotein, beta, serum, point, quantitative, calculated 64 mg/dL [facility] 0-99 07/30 HDL cholesterol, serum 37 mg/dL [facility] >39 Low 07/30 triglyceride, serum, random 111 mg/dL [facility] 0-149 07/30 cholesterol, serum 121 mg/dL [facility] [phone]/0 5/13 calcium, serum 9.4 mg/dL [facility] 8.7-10.2 07/30 carbon dioxide, venous blood 25 mmol/L [facility] 20-29 07/30 chloride, serum 100 mmol/L [facility] 96-106 07/30 potassium, serum 4.6 mmol/L [facility] 3.5-5.2 07/30 sodium, serum 140 mmol/L [facility] [phone]/0 5/13 urea nitrogen/creatinin e ratio, serum 17 [facility] 9-23 07/30 eGFR if 106 mL/min/{1.73 _m2} [facility] >59 07/30 eGFR if not 92 mL/min/{1.73 _m2} [facility] >59 07/30 creatinine, serum 0.72 mg/dL [facility] 0.57-1.00 07/30 urea nitrogen, blood 12 mg/dL [facility] 6-24 07/30 blood glucose, random 135 mg/dL [facility] 65-99 High 07/30 basophil count, absolute 0.1 x10E3/uL [facility] 0.0-0.2 07/30 Eosinophil Absolute Count 0.2 X10E3/UL [facility] 0.0-0.4 07/30 monocyte count, blood, automated 0.8 X10E3/UL [facility] 0.1-0.9 07/30 lymphocyte count, blood, automated 2.9 X10E3/UL [facility] 0.7-3.1 07/30 Absolute Neutrophils 5.6 X10E3/UL [facility] 1.4-7.0 07/30 basophils as percent of blood leukocytes 1 % [facility] Not Estab. 07/30 eosinophils as percent of blood leukocytes 3 % [facility] Not Estab. 07/30 monocytes as percent of blood leukocytes 8 % [facility] Not Estab. 07/30 lymphocytes as percent of blood leukocytes 30 % [facility] Not Estab. 07/30 neutrophils as percent of blood leukocytes 58 % [facility] Not Estab. 07/30 platelet count 247 X10E3/UL [facility] [phone]/0 5/13 red blood cell distribution width 13.1 % [facility] 11.7-15.4 07/30 mean corpuscular hemoglobin concentration, RBC 33.8 G/DL [facility] 31.5-35.7 07/30 mean corpuscular hemoglobin, RBC 30.2 pg [facility] 26.6-33.0 07/30 mean corpuscular volume, RBC 89 fL [facility] 79-97 07/30 hematocrit, blood 43.8 % [facility] 34.0-46.6 07/30 hemoglobin, blood 14.8 g/dL [facility] 11.1-15.9 07/30 erythrocyte (RBC) count 4.90 X10E6/UL [facility] 3.77-5.28 07/30 leukocyte count, blood 9.6 X10E3/UL [facility] 3.4-10.8 05/05 prothrombin time (patient) 10.1 s [facility] 9.1-12.0 05/05 international normalized ratio (INR) 1.0 [facility] 0.8-1.2 05/05 lipoprotein, beta, serum, point, quantitative, calculated 93 mg/dL [facility] 0-99 05/05 very low density lipoproteins 37 mg/dL [facility] 5-40 05/05 HDL cholesterol, serum 44 mg/dL [facility] >39 05/05 triglyceride, serum, random 185 mg/dL [facility] 0-149 High 05/05 cholesterol, serum 174 mg/dL [facility] [phone]/0 2/16 calcium, serum 9.5 mg/dL [facility] 8.7-10.2 05/05 carbon dioxide, venous blood 26 mmol/L [facility] 20-29 05/05 chloride, serum 102 mmol/L [facility] 96-106 05/05 potassium, serum 4.5 mmol/L [facility] 3.5-5.2 05/05 sodium, serum 142 mmol/L [facility] [phone]/0 2/16 urea nitrogen/creatinin e ratio, serum 15 [facility] 9-23 05/05 eGFR if 113 mL/min/{1.73 _m2} [facility] >59 05/05 eGFR if not 98 mL/min/{1.73 _m2} [facility] >59 05/05 creatinine, serum 0.66 mg/dL [facility] 0.57-1.00 05/05 urea nitrogen, blood 10 mg/dL [facility] 6-24 05/05 blood glucose, random 104 mg/dL [facility] 65-99 High 05/05 basophil count, absolute 0.1 x10E3/uL [facility] 0.0-0.2 05/05 Eosinophil Absolute Count 0.1 X10E3/UL [facility] 0.0-0.4 05/05 monocyte count, blood, automated 0.8 X10E3/UL [facility] 0.1-0.9 05/05 lymphocyte count, blood, automated 2.7 X10E3/UL [facility] 0.7-3.1 05/05 Absolute Neutrophils 4.0 X10E3/UL [facility] 1.4-7.0 05/05 basophils as percent of blood leukocytes 1 % [facility] Not Estab. 05/05 eosinophils as percent of blood leukocytes 1 % [facility] Not Estab. 05/05 monocytes as percent of blood leukocytes 11 % [facility] Not Estab. 05/05 lymphocytes as percent of blood leukocytes 35 % [facility] Not Estab. 05/05 neutrophils as percent of blood leukocytes 52 % [facility] Not Estab. 05/05 platelet count 219 X10E3/UL [facility] [phone]/0 2/16 red blood cell distribution width 14.0 % [facility] 12.3-15.4 05/05 mean corpuscular hemoglobin concentration, RBC 32.5 G/DL [facility] 31.5-35.7 05/05 mean corpuscular hemoglobin, RBC 29.8 pg [facility] 26.6-33.0 05/05 mean corpuscular volume, RBC 92 fL [facility] 79-97 05/05 hematocrit, blood 44.9 % [facility] 34.0-46.6 05/05 hemoglobin, blood 14.6 g/dL [facility] 11.1-15.9 05/05 erythrocyte (RBC) count 4.90 X10E6/UL [facility] 3.77-5.28 05/05 leukocyte count, blood 7.7 X10E3/UL [facility] 3.4-10.8 05/02 free thyroxine index 1.9 [facility] 1.2-4.9 05/02 triiodothyronine resin uptake 28 % [facility] 24-39 05/02 thyroxine, serum, total 6.9 ug/dL [facility] 4.5-12.0 05/02 thyroid stimulating hormone, serum 1.060 u[IU]/mL [facility] 0.450-4.50 0 05/02 platelet count 223 X10E3/UL [facility] [phone]/0 2/13 red blood cell distribution width 13.6 % [facility] 12.3-15.4 05/02 mean corpuscular hemoglobin concentration, RBC 32.6 G/DL [facility] 31.5-35.7 05/02 mean corpuscular hemoglobin, RBC 30.0 pg [facility] 26.6-33.0 05/02 mean corpuscular volume, RBC 92 fL [facility] 79-97 05/02 hematocrit, blood 47.8 % [facility] 34.0-46.6 High 05/02 hemoglobin, blood 15.6 g/dL [facility] 11.1-15.9 05/02 erythrocyte (RBC) count 5.20 X10E6/UL [facility] 3.77-5.28 05/02 leukocyte count, blood 8.7 X10E3/UL [facility] 3.4-10.8 05/02 alanine aminotransferase (SGPT), serum 12 1/L [facility] 0-32 05/02 aspartate aminotransferase (SGOT), serum 18 1/L [facility] 0-40 05/02 alkaline phosphatase, serum 65 1/L [facility] 39-117 05/02 bilirubin, serum, [facility]6 [facility] 05/02 albumin/globulin ratio, serum 1.8 [facility] 1.2-2.2 05/02 globulin, serum 2.6 [facility] 1.5-4.5 05/02 albumin, serum 4.6 g/dL [facility] 3.5-5.5 05/02 protein, total, serum 7.2 g/dL [facility] 6.0-8.5 05/02 calcium, serum 9.4 mg/dL [facility] 8.7-10.2 05/02 carbon dioxide, venous blood 26 mmol/L [facility] 18-29 05/02 chloride, serum 99 mmol/L [facility] 96-106 05/02 potassium, serum 4.7 mmol/L [facility] 3.5-5.2 05/02 sodium, serum 139 mmol/L [facility] [phone]/0 2/13 urea nitrogen/creatinin e ratio, serum 15 [facility] 9-23 05/02 eGFR if not 84 mL/min/{1.73 _m2} [facility] >59 05/02 creatinine, serum 0.79 mg/dL [facility] 0.57-1.00 05/02 urea nitrogen, blood 12 mg/dL [facility] 6-24 05/02 blood glucose, random 134 mg/dL [facility] 65-99 High 09/03 coagulation managed by Temi Tomas RN 09/03 international normalized ratio (INR) 1.6 Letty Josep Normal 09/03 prothrombin time (patient) 19.3 s Letty Car 08/20 coagulation managed by Reji Maradiaga RN 08/20 international normalized ratio (INR) 3.1 Letty Josep Normal 08/20 prothrombin time (patient) 36.9 s Letty Josep 08/13 international normalized ratio (INR) 3.5 Harshad Houser Normal 08/13 prothrombin time (patient) 41.5 s Harshad Houser 07/29 coagulation managed by Reji Maradiaga RN 07/29 international normalized ratio (INR) 1.3 Letty Gruenenfelder Normal 07/29 prothrombin time (patient) 15.4 s Letty Gruenenfelder 07/22 coagulation managed by Reji Maradiaga RN 07/22 international normalized ratio (INR) 4.5 Letty Gruenenfelder Normal 07/22 prothrombin time (patient) 54.3 s Letty Gruenenfelder 07/05 coagulation managed by Reji Maradiaga RN 07/05 international normalized ratio (INR) 1.3 Phuong Nichols Normal 07/05 prothrombin time (patient) 15.8 s Phuong Nichols 06/21 coagulation managed by Reji Maradiaga RN 06/21 international normalized ratio (INR) 1.5 Harshad Horneenson Normal 06/21 prothrombin time (patient) 18.5 s Harshad Horneenson 06/07 coagulation managed by Reji Maradiaga RN 06/07 international normalized ratio (INR) 3.4 Phuong Nichols Normal 06/07 prothrombin time (patient) 40.5 s Phuong Nichols 05/24 coagulation managed by Reji Maradiaga RN 05/24 international normalized ratio (INR) 2.4 Letty Gruenenfelder Normal 05/24 prothrombin time (patient) 28.8 s Letty Gruenenfelder coagulation managed by Reji Maradiaga RN international normalized ratio (INR) 1.6 Phuong Nichols Normal prothrombin time (patient) 19.2 s Phuong Nichols 05/14 coagulation managed by Reji Maradiaga RN 05/14 international normalized ratio (INR) 4.3 Letty Gruenenfelder Normal 05/14 prothrombin time (patient) 51.2 s Letty Gruenenfelder 04/17 coagulation managed by Reji Maradiaag RN 04/17 international normalized ratio (INR) 2.8 Reji Maradiaga RN Normal 04/17 prothrombin time (patient) 34.0 s Reji Maradiaga RN 05/01 hemoglobin A1C, blood, as % of total hemoglobin 6.2 % [facility] 4.0 - 6.0 High 05/01 anion gap, serum 14.4 [facility] - 05/01 albumin/globulin ratio, serum 3.2 g/dL [facility] 1.1 - 2.5 High 05/01 globulin, serum 3.0 [facility] 2.3 - 3.8 05/01 urea nitrogen/creatinin e ratio, serum 24.3 [facility] - 05/01 Estimated Glomerular Filtration Rate (calc) 92.7 (?) [facility] 59.0 - 05/01 chloride, serum 103.6 mmol/L [facility] 98.0 - 107.0 05/01 potassium, serum 4.5 mmol/L [facility] 3.5 - 5.1 05/01 sodium, serum 143.0 mmol/L [facility] 136.0 - 145.0 05/01 creatinine, serum 0.7 mg/dL [facility] 0.5 - 0.9 05/01 carbon dioxide, venous blood 25.0 mmol/L [facility] 22.0 - 29.0 05/01 albumin, serum 5.1 g/dL [facility] 3.5 - 5.2 05/01 calcium, serum 9.7 mg/dL [facility] 8.6 - 10.2 05/01 aspartate aminotransferase (SGOT), serum 21.0 1/L [facility] 0.0 - 32.0 05/01 alkaline phosphatase, serum 114.0 1/L [facility] 40.0 - 130.0 05/01 alanine aminotransferase (SGPT), serum 16.0 1/L [facility] 0.0 - 33.0 05/01 protein, total, serum 8.1 g/dL [facility] 6.6 - 8.7 05/01 bilirubin, serum, total 0.3 mg/dL [facility] 0.0 - 1.2 05/01 urea nitrogen, blood 17.0 mg/dL [facility] 6.0 - 20.0 05/01 blood glucose, random 124.0 mg/dL [facility] 74.0 - 99.0 High 05/01 very low density lipoproteins 69.8 mg/dL [facility] 5.0 - 40.0 High 05/01 LDL/HDL (low-density lipoprotein/high-d ensity lipoprotein) ratio 1.0 RATIO [facility] - 05/01 lipoprotein, beta, serum, point, quantitative, calculated 53.2 (?) [facility] 0.0 - 100.0 05/01 HDL cholesterol, serum 56.0 mg/dL [facility] 45.0 - 65.0 05/01 cholesterol, serum 179.0 mg/dL [facility] 0.0 - 200.0 05/01 triglyceride, serum, fasting 349.0 mg/dL [facility] 0.0 - 150.0 High 04/30 international normalized ratio (INR) 2.5 Phuong Nichols Normal 04/30 prothrombin time (patient) 30.2 s Phuong Nichols 04/23 coagulation managed by Reji Maradiaga RN 04/23 international normalized ratio (INR) 1.7 Letty Grueneneryer Normal 04/23 prothrombin time (patient) 20.5 s Letty Grdenniser 04/10 coagulation managed by Reji Maradiaga RN 04/10 international normalized ratio (INR) 1.4 Letty Gruenenfelder Normal 04/10 prothrombin time (patient) 16.6 s Letty Gruenenffrancaer 05/06 international normalized ratio (INR) 2.1 Harshad Houser Normal 05/06 prothrombin time (patient) 24.1 s Harshad Houser 04/30 coagulation managed by Reji Maradiaga RN 04/30 international normalized ratio (INR) 1.7 Reji Maradiaga RN Normal 04/30 prothrombin time (patient) 20.3 s Reji Maradiaga RN 04/23 coagulation managed by Chirag Draper RN 04/23 international normalized ratio (INR) 1.3 Chirag Draper RN Normal 04/15 coagulation managed by Karlene Mccarty RN 04/15 international normalized ratio (INR) 1.9 Karlene Mccarty RN Low 04/15 prothrombin time (patient) 22.3 s Karlene Mccarty JAHAIRA 04/08 international normalized ratio (INR) 1.7 Harshad Houser Normal 04/08 prothrombin time (patient) 20.3 s Harshad Houser 04/01 coagulation managed by Reji Maradiaga RN 04/01 international normalized ratio (INR) 2.8 Reji Maradiaga RN Normal 04/01 prothrombin time (patient) 34.0 s Reji Maradiaga RN 03/25 coagulation managed by Reji Maradiaga RN 03/25 prothrombin time (patient) 20.7 s Cherelle Serrano 03/25 international normalized ratio (INR) 1.7 Cherelle Zach Normal 03/22 coagulation managed by Reji Maradiaga RN 03/22 international normalized ratio (INR) 3.2 Reji Maradiaga RN Normal 03/22 prothrombin time (patient) 39.0 s Reji Maradiaga RN coagulation managed by Reji Maradiaga RN international normalized ratio (INR) 4.2 Reji Maradiaga RN Normal prothrombin time (patient) 55.04 s Reji Maradiaga RN coagulation managed by Reji Maradiaga RN international normalized ratio (INR) 2.8 Reji Maradiaga RN Normal prothrombin time (patient) 34.2 s Reji Maradiaga RN 11/28 lipoprotein, beta, serum, point, quantitative, calculated 77 mg/dL Rell Rios 11/28 cholesterol, serum 157 mg/dL Rell Rios 11/28 thyroid stimulating hormone, serum 1.370 u[IU]/mL Rell Rios 11/28 alanine aminotransferase (SGPT), serum 14 1/L 11/28 aspartate aminotransferase (SGOT), serum 22 1/L 11/28 creatinine, serum 0.98 mg/dL 11/28 potassium, serum 5.4 mmol/L 11/28 sodium, serum 143 mmol/L prothrombin time (patient) 10.0 s international normalized ratio (INR) 1.0 11/29 albumin/globulin ratio, serum 1.3 11/29 protein, total, serum 6.8 g/dL 11/29 albumin, serum 3.9 g/dL 11/29 bilirubin, serum, total 0.39 mg/dL 11/29 alkaline phosphatase, serum 67 1/L 11/29 alanine aminotransferase (SGPT), serum 24 1/L 11/29 aspartate aminotransferase (SGOT), serum 12 1/L 11/29 calcium, serum 9.2 mg/dL 11/29 blood glucose, fasting 102 mg/dL 11/29 creatinine, serum 0.93 mg/dL 11/29 urea nitrogen, blood 11.0 mg/dL 11/29 carbon dioxide, serum, total 28 mmol/L 11/29 chloride, serum 106 mmol/L 11/29 potassium, serum 4.0 mmol/L 11/29 sodium, serum 137 mmol/L 11/29 anion gap, serum 7.0 11/29 globulins, serum, total 2.9 g/dL 11/29 troponin I <0.04 11/29 estimated glomerular filtration rate >60 11/29 PTT patient 28.3 s 9/12 prothrombin time (patient) 10.4 s [facility] 11/29 international normalized ratio (INR) [facility].0 [facility] urine crystals, microscopic [facility] 11/29 epithelial cells, urine, per microscopy few etr11/29 casts, urine None [facility] 11/29 WBC urine on microscopy 0-1 etrist 11/29 bacteria, urine microscopy Many etr11/29 RBC urine by microscopy 0-2 etr11/29 leukocyte esterase, urine, by dipstick [facility] 11/29 urobilinogen, urine, semiquantitative (dipstick) Normal [facility] 11/29 nitrite, urine, semiquantitative Negative [facility] 11/29 RBC, urine, dipstick 25 [facility] 11/29 bilirubin, urine Negative [facility] 11/29 ketones, urine, by test strip Negative [facility] 11/29 glucose, urine, semiquantitative Normal [facility] 11/29 protein, urine, semiquantitative (dipstick) Negative [facility] 11/29 pH, urine, semiquantitative 6.5 [facility] 11/29 specific gravity, urine 1.005 etr11/29 urine color Pale Yellow [facility] 11/29 appearance, urine Clear [facility] 11/29 platelet count 223 10*3/uL [facility] 11/29 red blood cell distribution width 13.7 % [facility] 11/29 mean corpuscular hemoglobin concentration, RBC 34.2 g/dL [facility] 11/29 mean corpuscular hemoglobin, RBC 31.3 pg [facility] 11/29 mean corpuscular volume, RBC 91.6 fL [facility] 11/29 hematocrit, blood 42.4 % [facility] 11/29 hemoglobin, blood 14.5 g/dL [facility] 11/29 erythrocyte (RBC) count 4.63 10*6/mm3 Rell Rios 11/29 monocytes as percent of blood leukocytes 8.6 % Rell Rios 11/29 lymphocytes as percent of blood leukocytes 28.6 % Rell Rios 11/29 leukocyte count, blood 11.6 10*3/mm3 Rell Rios HISTORY OF MEDICATION USE Medication Status Instructions Dates Provider Indications Com ments atorvastatin 80 mg tablet active TAKE 1 TABLET BY MOUTH AT BEDTIME metoprolol succinate 50 mg tablet extended release 24 hr active TAKE 1 TABLET BY MOUTH EVERY DAY Symbicort 160-4.5 mcg/actuation HFA aerosol inhaler active Griselad Osborn atorvastatin 80 mg tablet completed TAKE ONE TABLET BY MOUTH EVERY DAY - Candace Manning RN Zithromax Z-Baldo 250 mg tablet completed Take by mouth as directed - Reji Maradiaga RN AZITHROMYCIN 250 MG ORAL TABLET completed Take two tablets the first day and then one tablet each day for the next four days - Mackenzie Guerreroenz aspirin 325 mg tablet,delayed release (DR/EC) active Take 1 tablet by mouth once a day Jessica Bansal ZITHROMAX PACKET completed Take as directed. - Mackenzie Lokesh atorvastatin 80 mg tablet completed Take 1 tablet once a day - Jessica Bansal #30, 30 days supply, Prescribed by SABIHA MILLER, Raphael 06/19/2018 EC-NAPROSYN 500 MG ORAL TABLET DELAYED RELEASE completed take one twice daily - Jessica Bansal MAPAP 500 MG ORAL CAPSULE completed take 2 twice daily - Jessica Bansal venlafaxine 37.5 mg tablet active 1 tablet by mouth once a day Otis Ang MD albuterol sulfate 0.63 mg/3 mL solution for nebulization active three times a day Harshad Houser GABAPENTIN 300 MG ORAL CAPSULE completed ONE TAB po tid - Harshad Houser COUMADIN 5 MG ORAL TABLET completed on Mon and Wed ONLY - Letty Car COUMADIN 3 MG ORAL TABLET completed one tab daily - Letty Josep ZITHROMAX PACKET completed Take as directed. - Lettyjacob Car OXYCODONE HCL CAPSULE completed take as needed for pain - Letty Car TRAMADOL HCL TABLET completed 50 mg as needed for pain - Harshad Houser SIMVASTATIN 40 MG ORAL TABLET completed 1 tab by mouth daily - Jessica Bansal COUMADIN 5 MG ORAL TABLET completed 1 tab daily - Reji Maradiaga RN clopidogrel 75 mg tablet completed Take 1 tablet by mouth once a day - Bobby Pagan CYCLOBENZAPRINE HCL 10 MG ORAL TABLET completed 1/2 tab three times daily as needed - Harshad Houser OXYCODONE HCL 5 MG ORAL CAPSULE completed 1-2 tabs every four hours as needed - Harshad Houser LIPITOR 80 MG ORAL TABLET completed ONE TAB. DAILY - Sukh Corona LISINOPRIL 2.5 MG ORAL TABLET completed ONE TAB. DAILY - Sukh Corona CLONAZEPAM 0.5 MG ORAL TABLET completed twice daily - Harshad Houser TYLENOL TABLET completed 2 tabs every four hours as needed - Harshad Houser [facility] N[facility] STEP 1 21 MG/24HR TRANSDERMAL PATCH 24 HOUR completed 1 patch on a day. - Belkis Jones VENLAFAXINE HCL ER 150 MG ORAL CAPSULE EXTENDED RELEASE 24 HOUR completed 1 tab po day - Letty Car SIMVASTATIN 40 MG ORAL TABLET completed ONE TAB. DAILY - Phuong Nichols ZETIA 10 MG ORAL TABLET completed one tablet daily - Reji Maradiaga RN VENLAFAXINE HCL ER 150 MG ORAL CAPSULE EXTENDED RELEASE 24 HOUR completed 1 tab po daily - Quin SOLORIOIVA HANDIHALER 18 MCG INHALATION CAPSULE completed as needed - Reji Maradiaga RN EFFEXOR XR 75 MG ORAL CAPSULE EXTENDED RELEASE 24 HOUR completed daily - Huy Moreno PROAIR HFA 108 (90 Base) MCG/ACT INHALATION AEROSOL SOLUTION completed as needed - Harshad Houser EFFEXOR XR 150 MG ORAL CAPSULE EXTENDED RELEASE 24 HOUR completed ONE TAB. DAILY - Huy Moreno NIASPAN 500 MG ORAL TABLET EXTENDED RELEASE completed ONE TAB. AT BEDTIME - Aneatris Brown ASPIRIN 81 MG ORAL TABLET completed ONE TAB. DAILY - Otis Ang MD DULCOLAX TABLET DELAYED RELEASE completed - Reji Maradiaga RN SIMVASTATIN 40 MG ORAL TABLET completed ONE TAB. AT BEDTIME INSTEAD OF LIPITOR - Letty Car metoprolol tartrate 75 mg tablet completed Take 1 tablet by mouth twice a day - Otis Ang MD ENALAPRIL MALEATE 20 MG ORAL TABLET completed ONE TAB. TWICE DAILY - Phuong Nichols BRILINTA 90 MG ORAL TABLET completed One tab. twice daily - Phuong Nichols SOCIAL HISTORY Date Observation Value Provider Underweight yes Otis Ang MD drug use no Otis Ang MD alcohol use no Otis Ang MD social history E&M Marital Statu s: L martin with family/friends E thnicity: Smoking History: Pepe carpio is a former smoker. Otis Ang MD social history reviewed E&M revi ewed - no changes required Otis Ang MD smoking status Former smoker Otis Ang MD social history E&M Marital Statu s: L martin with family/friends E thnicity: Smoking History: P atharis currently smokes every day. P atharis has been counseled to quit. Otis Ang MD social history reviewed E&M revi ewed - no changes required Otis Ang MD physical exercise, f requency, days per week yes Jessica Bansal caffeine use, averag e drinks per day yes Jessica Bansal passive cigarette sm steven exposure no Jessica Bansal smoking/tobacco cess ation, patient education and counseling yes Jessica Bansal smoking, year quit 2014 Jessica matos smoking, date started 1972 Abilio Bansal smoking history, tot al pack/year 43 Jessica Bansal smoking history, tot al pack/day 1/2 Jessica Bansal cigarette use yes Jessica bowens smoking status Current every day smoker Jamey karolynmaira Rolf social history E&M Marital Statu s: L martin with family/friends E thnicity: Smoking History: P shirin currently smokes every day. P shirin has been counseled to quit. Otis Ang MD social history reviewed E&M revi ewed - no changes required Otis Ang MD alcohol use no Otis Ang MD physical exercise, f requency, days per week yes Ilir Rodriguez caffeine use, averag e drinks per day yes Ilir Rodriguez passive cigarette sm steven exposure no Ilir Rodriguez smoking/tobacco cess ation, patient education and counseling yes Ilir Rodriguez smoking, year quit 2014 Idalia Rodriguez smoking, date started 1972 Evy Rodriguez smoking history, tot al pack/year 43 Ilir Rodriguez smoking history, tot al pack/day 1/2 Ilir Rodriguez cigarette use yes Ilir rivrea smoking status Current every day smoker S bella Rodriguez physical exercise, f requency, days per week yes Letty Josep caffeine use, averag e drinks per day yes Letty Sesaykahlilsabineherrera passive cigarette sm steven exposure no Letty Sesayroxanapaulinaherrera smoking/tobacco cess ation, patient education and counseling yes Letty Sesayroxanapaulinaherrera smoking, year quit 2014 Letty Whittaker rena smoking, date started 1972 Letty Sesaycris smoking history, tot al pack/year 43 Letty Monroyfrancasabrina smoking history, tot al pack/day 1/2 Letty Car cigarette use yes Letty silverman smoking status Current every day smoker Cris Sesaycris social history E&M Marital Statu s: L martin with family/friends E thnicity: Smoking History: P shirin currently smokes every day. P shirin has been counseled to quit. Otis Ang MD social history reviewed E&M revi ewed - no changes required Otis Ang MD physical exercise, f requency, days per week yes Jessica Bansal caffeine use, averag e drinks per day yes Jessica Bansal passive cigarette sm steven exposure no Jessica Bansal smoking/tobacco cess ation, patient education and counseling yes Jessica Bansal smoking, year quit 2014 Jessica matos smoking, date started 1972 Abilio Bansal smoking history, tot al pack/year 43 Jessica Bansal smoking history, tot al pack/day 1/2 Jessica Rolf cigarette use yes Jessica Patty bowens smoking status Current every day smoker Jamey dominguez Rolf social history reviewed E&M revi ewed - no changes required Otis Ang MD social history E&M Marital Statu s: L martin with family/friends E thnicity: Smoking History: P atient currently smokes every day. P atient has been counseled to quit. Otis Ang MD physical exercise, f requency, days per week yes Jessica Bansal alcohol use, average drinks per day social basis only Jessica Bansla alcohol use no Jessica quintana caffeine use, averag e drinks per day yes Jessica Bansal drug use no Jessica Michelle quintana smoking/tobacco cess ation, patient education and counseling yes Jessica Rolf passive cigarette sm steven exposure no Jessica Rolf smoking, year quit 2014 Jessica matos smoking, date started 1972 Abilio rao Rolf smoking history, tot al pack/year 43 Jessica Rolf smoking history, tot al pack/day 1/2 Jessica Rolf cigarette use yes Jessica bowens smoking status Current every day smoker Jamey daljitfrank Rolf social history E&M Marital Statu s: L martin with family/friends E thnicity: Smoking History: P atient currently smokes every day. P atient has been counseled to quit. Otis Ang MD social history reviewed E&M revi ewed - no changes required Otis Ang MD physical exercise, f requency, days per week yes Ana Maria Song alcohol use, average drinks per day social basis only Ana Maria Song alcohol use no Ana Maria [place] caffeine use, averag e drinks per day yes Ana Maria [place] drug use no Ana Maria [place] smoking/tobacco cess ation, patient education and counseling yes Ana Maria Nohemi passive cigarette sm steven exposure no Ana Maria [place] smoking, year quit 2014 Ana Maria Lynette s smoking, date started 1972 [facility] smoking history, tot al pack/year 43 Ana Maria [place] smoking history, tot al pack/day 1/2 Ana Maria [place] cigarette use yes [facility] smoking status Current every day smoker D [facility] social history E&M Marital Statu s: L martin with family/friends E thnicity: Smoking History: P atharis currently smokes every day. P atharis has been counseled to quit. Otis Ang MD social history reviewed E&M revi ewed - no changes required Otis Ang MD Underweight no Otis Ang MD physical exercise, f requency, days per week yes [facility] alcohol use, average drinks per day social basis only [facility] alcohol use no [facility] caffeine use, averag e drinks per day yes [facility] drug use no [facility] smoking/tobacco cess ation, patient education and counseling yes [facility] passive cigarette sm steven exposure no [facility] smoking, year quit 2014 [facility] s smoking, date started 1972 [facility] smoking history, tot al pack/year 43 [facility] smoking history, tot al pack/day 1/2 [facility] cigarette use yes [facility] smoking status Current every day smoker D [facility] Underweight yes Otis Ang MD social history E&M Marital Statu s: L martin with family/friends E thnicity: Smoking History: P atient currently smokes every day. P atient has been counseled to quit. Otis Ang MD social history reviewed E&M revi ewed - no changes required Otis Ang MD physical exercise, f requency, days per week yes Ana Maria [place] alcohol use, average drinks per day social basis only Ana Maria Nohemi alcohol use no Ana Maria Nohemi caffeine use, averag e drinks per day yes Ana Maria [place] drug use no Ana Maria [place] smoking/tobacco cess ation, patient education and counseling yes Ana Maria [place] passive cigarette sm steven exposure no [facility] smoking, year quit 2014 [facility] smoking, date started 1973 [facility] smoking history, tot al pack/year 43 Ana Maria [place] smoking history, tot al pack/day 1/2 [facility] cigarette use yes [facility] smoking status Current every day smoker D [facility] Underweight yes Otis Ang MD social history reviewed E&M revi ewed - no changes required Otis Ang MD social history E&M Marital Statu s: L martin with family/friends E thnicity: Smoking History: P atient currently smokes every day. P atient has been counseled to quit. Otis Ang MD smoking/tobacco cess ation, patient education and counseling yes Otis Ang MD physical exercise, f requency, days per week yes Harshad Houser alcohol use, average drinks per day social basis only Harshad Houser alcohol use no Harshad mendez caffeine use, averag e drinks per day yes Harshad Houser drug use no Harshad Holly nson passive cigarette sm steven exposure no Harshad Houser smoking, year quit 2014 Harshad Houser smoking, date started 1973 Jennifer Houser smoking history, tot al pack/year 43 Harshad Houser smoking history, tot al pack/day 1/2 Harshad Houser cigarette use yes Harshad lopez smoking status Current every day smoker U keeley Ang MD number of grandchildren Otis Ang MD U keeley Ang MD social history reviewed E&M revi vaughn - no changes required Otis Ang MD physical exercise, f requency, days per week yes Letty Car alcohol use, average drinks per day social basis only Letty Car alcohol use no Letty trejo caffeine use, averag e drinks per day yes Letty Car drug use no Letty trejo passive cigarette sm steven exposure no Letty Car smoking, year quit 2014 Letty chase smoking, date started 1972 Letty Car smoking history, tot al pack/year 43 Letty Car smoking history, tot al pack/day 1/2 Letty Car cigarette use yes Letty silverman smoking status Former smoker Letty tsang smoking history, tot al pack/year 43 Nesha Rodriguez physical exercise, f requency, days per week yes Otis Ang MD alcohol use, average drinks per day social basis only Otis Ang MD caffeine use, averag e drinks per day yes Otis Ang MD drug use no Otis Ang MD passive cigarette sm steven exposure no Otis Ang MD smoking, year quit 2014 Otis alvarenga MD smoking, date started 1973 Otis Ang MD smoking history, tot al pack/year 43 Otis Ang MD smoking history, tot al pack/day 1/2 Otis Ang MD cigarette use yes Otis Pierce smoking status Former smoker Otis Ang MD social history reviewed E&M revi ewed - no changes required Otis Ang MD alcohol use no Letty castroer smoking history, tot al pack/year 43 Reji Maradiaga RN social history E&M Marital Statu s: L martin with family/friends E thnicity: Smoking History: Pepe carpio is a former smoker. Otis Ang MD social history reviewed E&M revi ewed - no changes required Otis Ang MD alcohol use no Letty Maryanne trejo smoking status Former smoker Letty Sesaykahlil tsang social history reviewed E&M revi ewed - no changes required Otis Ang MD physical exercise, f requency, days per week yes Harshad Houser alcohol use, average drinks per day social basis only Harshad Houser alcohol use no Harshad mendez caffeine use, averag e drinks per day yes Harshad Houser drug use no Harshad mendez passive cigarette sm steven exposure no Harshad Houser smoking, year quit 2014 Harshad Houser smoking, date started 1973 Jennifer Houser smoking history, tot al pack/year 42 Harshad Houser smoking history, tot al pack/day 1/2 Harshad Houser cigarette use yes Harshad lopez smoking status Former smoker Harshad Schofield quit smoking, stage quit Sabiha monroe NP social history reviewed E&M revi ewed - no changes required Sabiha Orellana NP physical exercise, f requency, days per week yes Harshad Houser alcohol use, average drinks per day social basis only Harshad Houser alcohol use no Harshad mendez caffeine use, averag e drinks per day yes Harshad Houser drug use no Harshad crandallon passive cigarette sm steven exposure no Harshad Houser smoking, year quit 2014 Harshad Houser smoking, date started 1972 Jennifer Houser smoking history, tot al pack/year 42 Harshad Houser smoking history, tot al pack/day 1/2 Harshad Houser cigarette use yes Harshad lopez smoking status Former smoker Harshad Schofield social history reviewed E&M revi ewed - no changes required Otis Ang MD smoking, year quit 2014 Phuong Michele cigarette use yes Phuong Nichols smoking status Former smoker Phuong Andersonmaira nn smoking history, tot al pack/year 42 Reji Maradiaga RN physical exercise, f requency, days per week yes Otis Ang MD alcohol use, average drinks per day social basis only Otis Ang MD caffeine use, averag e drinks per day yes Otis Ang MD drug use no Otis Ang MD passive cigarette sm steven exposure no Otis Ang MD smoking/tobacco cess ation, patient education and counseling yes Otis Ang MD smoking, date started 1973 Otis Ang MD smoking history, tot al pack/year 41 Otis Ang MD smoking history, tot al pack/day 1/2 Otis Ang MD cigarette use yes Otis Pierce smoking status Current every day smoker U keeley Ang MD social history reviewed E&M revi ewed - no changes required Otis Ang MD smoking/tobacco cess ation, patient education and counseling yes Otis Ang MD smoking status Current every day smoker U keeley Ang MD social history E&M Marital Statu s: L martin with family/friends E thnicity: P atient currently smokes sometimes. Otis Ang MD social history reviewed E&M reviewed Otis Ang MD passive cigarette sm steven exposure no Letty Car drug use no Letty trejo smoking/tobacco cess ation, patient education and counseling no Letty Car smoking history, tot al pack/day 1/2 Letty Car cigarette use yes Letyt silverman smoking history, tot al pack/year 41 Letty Car smoking, date started 1973 Letty Car smoking status current every day smoker K lawrence Car smoking status smoker - current status unknown Reji Maradiaga RN social history reviewed E&M reviewed Reji Maradiaga RN social history reviewed E&M reviewed Oits Ang MD smoking status smoker - current status unknown Quin Flowers social history reviewed E&M reviewed Otis Ang MD social history reviewed E&M reviewed Reji Maradiaga RN cigarette use 10 Otis Pierce smoking/tobacco cess ation, patient education and counseling yes Reji Maradiaga RN social history reviewed E&M reviewed Reji Maradiaga RN social history E&M Marital Statu s: L martin with family/friends E thnicity: Otis Ang MD social history reviewed E&M reviewed Otis Ang MD social history reviewed E&M reviewed Reji Maradiaga RN smoking status Smoker Otis Ang MD smoking/tobacco cess ation, patient education and counseling yes Reji Maradiaga RN social history reviewed E&M reviewed Reji Maradiaga RN social history E&M Marital Statu s: L martin with family/friends E thnicity: Reji Maradiaga RN social history reviewed E&M reviewed Reji Maradiaga RN social history E&M Marital Status: Marrie d Otis Ang MD smoking/tobacco cess ation, patient education and counseling yes Otis Ang MD social history reviewed E&M reviewed Otis Ang MD physical exercise, f requency, days per week yes [employer] caffeine use, averag e drinks per day yes [employer] alcohol use, average drinks per day social basis only [employer] smoking status Quit [employer]Log FUNCTIONAL STATUS Date Observation Value Provider HRA, CV Assess/Plan, Angina (inactive) Management Plan continue current therapy Otis Ang MD HRA, CV Assess/Plan, Angina (inactive) Management Plan continue current therapy Otis Ang MD HRA, CV Assess/Plan, Angina (inactive) Management Plan continue current therapy Otis Ang MD HRA, CV Assess/Plan, Angina (inactive) Management Plan continue current therapy Otis Ang MD HRA, CV Assess/Plan, Angina (inactive) Management Plan continue current therapy Otis Ang MD HRA, CV Assess/Plan, Angina (inactive) Management Plan continue current therapy Otis Ang MD HRA, CV Assess/Plan, Angina (inactive) Management Plan continue current therapy Otis Ang MD HRA, CV Assess/Plan, Angina (inactive) Management Plan continue current therapy Otis Ang MD MENTAL STATUS Date Observation Value Provider energy level no Miranda Tebid assessment of judgme nt and insight E&M Alert and oriented to time, place and person. Mood and affect are normal. Otis Ang MD assessment of judgme nt and insight E&M Alert and oriented to time, place and person. Mood and affect are normal. Reji Maradiaga RN assessment of judgme nt and insight E&M Alert and oriented to time, place and person. Mood and affect are normal. Otis Ang MD assessment of judgme nt and insight E&M Alert and oriented to time, place and person. Mood and affect are normal. Otis Ang MD assessment of judgme nt and insight E&M Alert and oriented to time, place and person. Mood and affect are normal. Reji Maradiaga RN assessment of judgme nt and insight E&M Alert and oriented to time, place and person. Mood and affect are normal. Reji Maradiaga RN assessment of judgme nt and insight E&M Alert and oriented to time, place and person. Mood and affect are normal. Otis Ang MD assessment of judgme nt and insight E&M Alert and oriented to time, place and person. Mood and affect are normal. Reji Maradiaga RN assessment of judgme nt and insight E&M Alert and oriented to time, place and person. Mood and affect are normal. Reji Maradiaga RN assessment of judgme nt and insight E&M Alert and oriented to time, place and person. Mood and affect are normal. Reji Maradiaga RN assessment of judgme nt and insight E&M Alert and oriented to time, place and person. Mood and affect are normal. Otis Ang MD FAMILY HISTORY Family Member Condition Mother Family History of Hy pertension: Mother Family History of CV A or Stroke: Full Sister Family History of Hy pertension: Full Sister Family History of CV A or Stroke: INSURANCE PROVIDERS Payer name Policy type / Coverage type [employer] [place] (2) Medicaid [id number] ADVANCE DIRECTIVES Name Date DISCUSSED - NO DECISION MADE TREATMENT PLAN Date Name Performer [id number],C,M ost likely secondary to COPD but has a history of CAD with stents and so I will check an echocardiogram. Unwilling to do regadenoson after poor experience taking the stress test before. Otis Ang MD [id number],C,D oing well after revision of fem-fem. T hankfully has quit smoking and otherwise continue her aspirin and atorvastatin. Otis Ang MD [id number],S, Otis Ang MD [id number],B, B P today: 130/80 P rior BP: 140/86 (07/27/2020) Her updated medication list for this problem includes: Metoprolol Tartrate 75 Mg Tablet (Metoprolol tartrate) ..... Take 1 tablet by mouth twice a day Enalapril Maleate 5 Mg Tablet (Enalapril maleate) ..... Take 1 tablet by mouth twice a day Aspirin 325 Mg Tablet,delayed Release (dr/ec) (Aspirin) ..... Take 1 tablet by mouth once a day Otis Ang MD [id number],B, S /p fem-fem graft revision at [facility]. States her claudication sxs are greatly improved. Otis Ang MD [id number],S, s /p NANI to RCA. Otis Ang MD [id number],S, T he Patient was reencouraged to stop smoking. Otis Ang MD [id number],C, H er updated medication list for this problem includes: Atorvastatin Calcium 80 Mg Oral Tablet (Atorvastatin calcium) ..... Take 1 tablet once a day Otis Ang MD [id number],W, C TA AIF 08/2020 T georgina common femoral arteries are occluded bilaterally. The bilateral intemal and extemal iliac arteries are occluded. The bilateral common femoral arteries are occluded. There is a fem-fem graft within the anterior subcutaneous tissues which is also occluded. Patient is in contact with [facility] to discuss revision of her fem-fem graft. Otis Ang MD Cardiology:Most like ly secondary to COPD but has a history of CAD with stents and so I will check an echocardiogram. Unwilling to do regadenoson after poor experience taking the stress test before. Otis Ang MD Cardiology:Doing wel l after revision of fem-fem. T hankfully has quit smoking and otherwise continue her aspirin and atorvastatin. Otis Ang MD Cardiology follow up Otis crawford MD Cardiology follow up : B P today: 130/80 P rior BP: 140/86 (07/27/2020) Her updated medication list for this problem includes: Metoprolol Tartrate 75 Mg Tablet (Metoprolol tartrate) ..... Take 1 tablet by mouth twice a day Enalapril Maleate 5 Mg Tablet (Enalapril maleate) ..... Take 1 tablet by mouth twice a day Aspirin 325 Mg Tablet,delayed Release (dr/ec) (Aspirin) ..... Take 1 tablet by mouth once a day Otis Ang MD Cardiology follow up : S /p fem-fem graft revision at [facility]. States her claudication sxs are greatly improved. Otis Ang MD Cardiology follow up : s /p NANI to RCA. Otis Ang MD Cardiology follow up : T he Patient was reencouraged to stop smoking. Otis Ang MD Cardiology follow up : H er updated medication list for this problem includes: Atorvastatin Calcium 80 Mg Oral Tablet (Atorvastatin calcium) ..... Take 1 tablet once a day Otis Ang MD Telehealth, 3 month f/u. : C TA AIF 08/2020 T he common femoral arteries are occluded bilaterally. The bilateral intemal and extemal iliac arteries are occluded. The bilateral common femoral arteries are occluded. There is a fem-fem graft within the anterior subcutaneous tissues which is also occluded. Patient is in contact with [facility] to discuss revision of her fem-fem graft. Otis Ang MD Cardiology:Schedule AIF to LLE as she is having severe pain and she has diminished ABIs on this side. Otis Ang MD Cardiology Follow up Otis crawford MD Cardiology Follow up :The Patient was reencouraged to stop smoking. Otis Ang MD Cardiology Follow up : H er updated medication list for this problem includes: Atorvastatin Calcium 80 Mg Oral Tablet (Atorvastatin calcium) ..... Take 1 tablet once a day Otis Ang MD Cardiology Follow up : I f BP remains high at her nex visit we will adjust her medications BP today: 160/90 P rior BP: 130/70 (12/31/2018) Labs Reviewed: C reat: 0.66 (05/05/2018) C hol: 174 (05/05/2018) HDL: 44 (05/05/2018) Otis Ang MD Cardiology Follow up :We will order a CTA AIF and BASIM as she is having LE numbness upon exertion and has a known h/o PVD. Otis Ang MD Cardiology Follow up : BP today: 160/90 P rior BP: 130/70 (12/31/2018) Labs Reviewed: C reat: 0.66 (05/05/2018) C hol: 174 (05/05/2018) HDL: 44 (05/05/2018) Otis Ang MD Telehealth:Possibly secondary to arthritis or trauma from the fall she took down the stairs. I recommended to her that she speak to her PCP regarding this issue Jose Miguel Duke Telehealth:The Patie nt was reencouraged to stop smoking. Fouzia Mac MD Telehealth: H er updated medication list for this problem includes: Atorvastatin Calcium 80 Mg Oral Tablet (Atorvastatin calcium) ..... Take 1 tablet once a day Fouzia Mac MD Telehealth:CAD appears stable. Genia Mac MD Telehealth:Possibly secondary to arthritis or trauma from the fall she took down the stairs. Fouzia Mac MD Cardiology follow up Otis crawfrod MD Cardiology follow up :The Patient was reencouraged to stop smoking. Otis Ang MD Cardiology follow up : B P today: 130/70 P rior BP: 118/70 (06/25/2018) Labs Reviewed: C reat: 0.66 (05/05/2018) C hol: 174 (05/05/2018) HDL: 44 (05/05/2018) Otis Ang MD Cardiology follow up:Per PCP Ricardo Ang MD Cardiology follow up :She had an AIF in May that showed that the axillo-fem bypass and the fem-fem bypass were both open. No further intervention is required. Otis Ang MD Cardiology hospital follow up Us lora Ang MD Cardiology hospital follow up :Continues to smoke. S LUZNGLY ENCOURAGED TO STOP SMOKING; SMOKING CESSATION TECHNIQUES DISCUSSED. Otis Ang MD Cardiology hospital follow up : B P today: 118/70 P rior BP: 118/70 (05/04/2018) Labs Reviewed: C reat: 0.66 (05/05/2018) C hol: 174 (05/05/2018) HDL: 44 (05/05/2018) Otis Ang MD Cardiology hospital follow up :s /p NANI to RCA. Otis Ang MD Cardiology hospital follow up :grafts are patent. Otis Ang MD Cardiology hospital follow up:recommend proceeding with L heart cath. Otis Ang MD Cardiology hospital follow up:recommend proceeding with AIF. Patient complaining of heaviness and pain in legs b/l. Otis Ang MD Cardiology hospital follow up Us lora Ang MD Cardiology hospital follow up:The Patient was reencouraged to stop smoking. Otis Ang MD Cardiology hospital follow up: B P today: 118/70 P rior BP: 114/80 (12/14/2017) Otis Ang MD Cardiology hospital follow up:Co ntinue simvastatin 40mg Otis Ang MD Cardiology follow up :The Patient was reencouraged to stop smoking. Otis Ang MD Cardiology follow up Otis crawford MD Cardiology follow up:on Simva Us lora Ang MD Cardiology follow up Otis crawford MD Cardiology follow up:Will order echo. Otis Ang MD Cardiology follow up :The Patient was reencouraged to stop smoking. Otis Ang MD Cardiology follow up:Denies ches t pains. Otis Ang MD Cardiology follow up :Decrease Enalapril to 5mg bid. BP today: 94/60 P rior BP: 151/91 (04/14/2017) Labs Reviewed: C reat: 0.79 (05/02/2017) C hol: 179.0 (05/01/2015) HDL: 56.0 (05/01/2015) T.0 (05/01/2015) Otis Ang MD Cardiology follow up :Will check CTA AIF with contrast to evaluate ptancy of grafts. Otis Ang MD Cardiology:Start Rubén lafaxine 37.5mg daily. Otis Ang MD Cardiology:Elevated. W ill increase Enalapril from 5mg to 10mg daily. BP today: 151/91 P rior BP: 142/84 (05/05/2016) Labs Reviewed: C reat: 0.7 (05/01/2015) C hol: 179.0 (05/01/2015) HDL: 56.0 (05/01/2015) T.0 (05/01/2015) Otis Ang MD Cardiology:Patient h as resumed smoking. T he Patient was reencouraged to stop smoking. Otis Ang MD Cardiology:Patient h as bilateral leg pain with spasms. T his has improved since she has stopped the gabapentin. W ill check BASIM and labs. Otis Ang MD Cardiology Follow up :s/p axilo- fem. Otis Ang MD Cardiology Follow up :Stable. Will check an echo and BASIM at next visit Otis Ang MD Cardiology Follow up Otis crawford MD Cardiology Follow up Otis crawford MD Cardiology Follow up :Pain sounds neuropathic and so will start her on ADDIS Pentin. Otis Ang MD Cardiology Follow up :102/66. I have reduced her vasotec to 5mg once a day because her pressure is on the lower side. Otis Ang MD Cardiology: B P today: 104/63 P rior BP: 137/89 (02/06/2015) Otis Ang MD Cardiology:s/p R fem pop bypass (12/19/2014) Otis Ang MD Cardiology Sabiha Orellana N P Cardiology: B P today: 137/89 P rior BP: 107/66 (01/08/2015) Sabiha Orellana [employer] Cardiology:Removed ASA. Started on Plavix and Coumadin. Otis Ang MD Cardiology:She has q uit smoking since hospital discharge. Otis Ang MD Cardiology: B P today: 107/66 P rior BP: 140/78 (05/16/2014) Otis Ang MD Cardiology:Recent in tervention by Dr. Keene at [facility]. Will obtain her hospital records. Otis Ang MD follow up: H er updated medication list for this problem includes: Plavix 75 Mg Tabs (Clopidogrel bisulfate) ..... One tab. daily Aspirin 81 Mg Tabs (Aspirin) ..... One tab. daily & #13;Orders: C arotid Duplex Bilateral (CPT-34900) A rterial Duplex Bi-Lower EX (CPT-11921) Otis Ang MD follow up: T he following medications were removed from the medication list: Niaspan 500 Mg Tbcr (Niacin (antihyperlipidemic)) ..... One tab. at bedtime Her updated medication list for this problem includes: Plavix 75 Mg Tabs (Clopidogrel bisulfate) ..... One tab. daily Enalapril Maleate 20 Mg Tabs (Enalapril maleate) ..... One tab. twice daily Metoprolol Tartrate 50 Mg Tabs (Metoprolol tartrate) ..... One tab. twice daily Aspirin 81 Mg Tabs (Aspirin) ..... One tab. daily Simvastatin 40 Mg Tabs (Simvastatin) ..... One tab. daily Orders: C arotid Duplex Bilateral (CPT-35566) A rterial Duplex Bi-Lower EX (CPT-07870) Otis Ang MD follow up:BP 140/78 Her updated medication list for this problem includes: Enalapril Maleate 20 Mg Tabs (Enalapril maleate) ..... One tab. twice daily Metoprolol Tartrate 50 Mg Tabs (Metoprolol tartrate) ..... One tab. twice daily Aspirin 81 Mg Tabs (Aspirin) ..... One tab. daily Orders: Fidelia KG (CPT-62401) Otis Ang MD follow up:The Patien t was reencouraged to stop smoking. S he was unable to tolerate nicotine patches. Orders: C arotid Duplex Bilateral (CPT-80380) A rterial Duplex Bi-Lower EX (CPT-02131) Otis Ang MD follow up:patches. Otis Ang MD follow up: H er updated medication list for this problem includes: Plavix 75 Mg Tabs (Clopidogrel bisulfate) ..... One tab. daily Enalapril Maleate 20 Mg Tabs (Enalapril maleate) ..... One tab. twice daily Metoprolol Tartrate 50 Mg Tabs (Metoprolol tartrate) ..... One tab. twice daily Aspirin 81 Mg Tabs (Aspirin) ..... One tab. daily Niaspan 500 Mg Tbcr (Niacin (antihyperlipidemic)) ..... One tab. at bedtime Simvastatin 40 Mg Tabs (Simvastatin) ..... One tab. daily Otis Ang MD follow up Otis Ang MD follow up Otis Ang MD Follow up Otis Ang MD Follow up:The Patient was reenco uraged to stop smoking. Otis Ang MD Follow up: H er updated medication list for this problem includes: Enalapril Maleate 20 Mg Tabs (Enalapril maleate) ..... One tab. twice daily Metoprolol Tartrate 50 Mg Tabs (Metoprolol tartrate) ..... One tab. twice daily Aspirin 81 Mg Tabs (Aspirin) ..... One tab. daily Otis Ang MD Follow up Otis Ang MD Follow up: H er updated medication list for this problem includes: Plavix 75 Mg Tabs (Clopidogrel bisulfate) ..... One tab. daily Enalapril Maleate 20 Mg Tabs (Enalapril maleate) ..... One tab. twice daily Metoprolol Tartrate 50 Mg Tabs (Metoprolol tartrate) ..... One tab. twice daily Aspirin 81 Mg Tabs (Aspirin) ..... One tab. daily Orders: Fidelia Alfredo (CPT-59423) Otis Ang MD : T he following medications were removed from the medication list: Zetia 10 Mg Tabs (Ezetimibe) ..... One tablet daily Her updated medication list for this problem includes: Simvastatin 40 Mg Tabs (Simvastatin) ..... One tab. at bedtime instead of lipitor Niaspan 500 Mg Tbcr (Niacin (antihyperlipidemic)) ..... One tab. at bedtime Simvastatin 40 Mg Tabs (Simvastatin) ..... One tab. daily BP today: / Prior BP: 113/79 (10/04/2012) C HOL: 157 (11/29/2011) LDL: 77 (11/29/2011) Otis Ang MD :The Patient was reencouraged to stop smoking. Otis Ang MD : H er updated medication list for this problem includes: Plavix 75 Mg Tabs (Clopidogrel bisulfate) ..... One tab. daily Enalapril Maleate 20 Mg Tabs (Enalapril maleate) ..... One tab. twice daily Metoprolol Tartrate 50 Mg Tabs (Metoprolol tartrate) ..... One tab. twice daily Simvastatin 40 Mg Tabs (Simvastatin) ..... One tab. at bedtime instead of lipitor Aspirin 81 Mg Tabs (Aspirin) ..... One tab. daily Niaspan 500 Mg Tbcr (Niacin (antihyperlipidemic)) ..... One tab. at bedtime Zetia 10 Mg Tabs (Ezetimibe) ..... One tablet daily BP today: / Prior BP: 113/79 (10/04/2012) N uclear Stress Findings: 1. Abnormal myocardial perfusion imaging after vasodilator stress with Regadenoson. 2 . Normal left ventricular systolic function with a calculated ejection fraction of 68%. 3 . Myocardial scintigraphy demonstrates anterior wall ischemia. (12/09/2010) S tre Echo Findings: Normal chamber size. N ormal valves. N ormal left ventricular systolic function. N o ECG changes diagnostic of ischemia. (10/22/2004) C ardiac Cath: Normal left ventricular end-diastolic pressure. Normal left ventricular function. In-stent restenosis with a successful stent through the left anterior descending. - [facility] (12/23/2010) C ardiac Cath Comments: Successful 3.0 x 15 [place] stent in the LAD. [facility] (12/23/2010) C arotid Doppler/Duplex: Mild smooth atherosclerotic plaque bilaterally (<50%). Normal Doppler velocities. Antegrade flow into both vertebrals. [facility] (05/07/2008) T roponin I: <0.04 (11/29/2010) CHOL: 157 (11/29/2011) LDL: 77 (11/29/2011) Hgb: 14.5 (11/29/2010) HCT: 42.4 (11/29/2010) RBC: 4.63 (11/29/2010) WBC: 11.6 (11/29/2010) B UN: 11.0 (11/29/2010) Creat: 0.98 (11/29/2011) Glucose: 102 (11/29/2010) N a+: 143 (11/29/2011) K+: 5.4 (11/29/2011) Cl: 106 (11/29/2010) PT: 10.0 (12/23/2010) INR: 1.0 (12/23/2010) P TT: 28.3 (11/29/2010) T SH: 1.370 (11/29/2011) Otis Ang MD : H er updated medication list for this problem includes: Enalapril Maleate 20 Mg Tabs (Enalapril maleate) ..... One tab. twice daily Metoprolol Tartrate 50 Mg Tabs (Metoprolol tartrate) ..... One tab. twice daily Aspirin 81 Mg Tabs (Aspirin) ..... One tab. daily Prior BP: 113/79 (10/04/2012) Labs Reviewed: C reat: 0.98 (11/29/2011) C hol: 157 (11/29/2011) LDL: 77 (11/29/2011) Otis Ang MD Otis Ang MD : H er updated medication list for this problem includes: Plavix 75 Mg Tabs (Clopidogrel bisulfate) ..... One tab. daily Enalapril Maleate 20 Mg Tabs (Enalapril maleate) ..... One tab. twice daily Metoprolol Tartrate 50 Mg Tabs (Metoprolol tartrate) ..... One tab. twice daily Aspirin 81 Mg Tabs (Aspirin) ..... One tab. daily BP today: / Prior BP: 113/79 (10/04/2012) N uclear Stress Findings: 1. Abnormal myocardial perfusion imaging after vasodilator stress with Regadenoson. 2 . Normal left ventricular systolic function with a calculated ejection fraction of 68%. 3 . Myocardial scintigraphy demonstrates anterior wall ischemia. (12/09/2010) S tress Echo Findings: Normal chamber size. N ormal valves. N ormal left ventricular systolic function. N o ECG changes diagnostic of ischemia. (10/22/2004) C ardiac Cath: Normal left ventricular end-diastolic pressure. Normal left ventricular function. In-stent restenosis with a successful stent through the left anterior descending. - [facility] (12/23/2010) C ardiac Cath Comments: Successful 3.0 x 15 [place] stent in the LAD. [facility] (12/23/2010) C arotid Doppler/Duplex: Mild smooth atherosclerotic plaque bilaterally (<50%). Normal Doppler velocities. Antegrade flow into both vertebrals. [facility] (05/07/2008) T roponin I: <0.04 (11/29/2010) CHOL: 157 (11/29/2011) LDL: 77 (11/29/2011) Hgb: 14.5 (11/29/2010) HCT: 42.4 (11/29/2010) RBC: 4.63 (11/29/2010) WBC: 11.6 (11/29/2010) B UN: 11.0 (11/29/2010) Creat: 0.98 (11/29/2011) Glucose: 102 (11/29/2010) N a+: 143 (11/29/2011) K+: 5.4 (11/29/2011) Cl: 106 (11/29/2010) PT: 10.0 (12/23/2010) INR: 1.0 (12/23/2010) P TT: 28.3 (11/29/2010) T SH: 1.370 (11/29/2011) O rders: E KG (CPT-69375) Otis Ang MD follow up: H er updated medication list for this problem includes: Plavix 75 Mg Tabs (Clopidogrel bisulfate) ..... One tab. daily Aspirin 81 Mg Tabs (Aspirin) ..... One tab. daily Otis Ang MD follow up:The Patient was reenco uraged to stop smoking. Otis Ang MD follow up:113/79 H er updated medication list for this problem includes: Enalapril Maleate 20 Mg Tabs (Enalapril maleate) ..... One tab. twice daily Metoprolol Tartrate 50 Mg Tabs (Metoprolol tartrate) ..... One tab. twice daily Aspirin 81 Mg Tabs (Aspirin) ..... One tab. daily Otis Ang MD follow up: H er updated medication list for this problem includes: Simvastatin 40 Mg Tabs (Simvastatin) ..... One tab. at bedtime instead of lipitor Niaspan 500 Mg Tbcr (Niacin (antihyperlipidemic)) ..... One tab. at bedtime Otis Ang MD follow up: H er updated medication list for this problem includes: Plavix 75 Mg Tabs (Clopidogrel bisulfate) ..... One tab. daily Enalapril Maleate 20 Mg Tabs (Enalapril maleate) ..... One tab. twice daily Metoprolol Tartrate 50 Mg Tabs (Metoprolol tartrate) ..... One tab. twice daily Simvastatin 40 Mg Tabs (Simvastatin) ..... One tab. at bedtime instead of lipitor Aspirin 81 Mg Tabs (Aspirin) ..... One tab. daily Niaspan 500 Mg Tbcr (Niacin (antihyperlipidemic)) ..... One tab. at bedtime Otis Ang MD follow up:although s he is on venlafaxine it is not rx;d for htn but this is one og the few that work for her so will increas the enalapril. H er updated medication list for this problem includes: Enalapril Maleate 20 Mg Tabs (Enalapril maleate) ..... One tab. twice daily Metoprolol Tartrate 50 Mg Tabs (Metoprolol tartrate) ..... One tab. twice daily Aspirin 81 Mg Tabs (Aspirin) ..... One tab. daily Otis Ang MD follow up:The Patient was reenco uraged to stop smoking. Otis Ang MD routine :The Patient was reencou raged to stop smoking. Otis Ang MD routine :148/88 H er updated medication list for this problem includes: Enalapril Maleate 10 Mg Tabs (Enalapril maleate) ..... Take one tablet by mouth one time daily Metoprolol Tartrate 50 Mg Tabs (Metoprolol tartrate) ..... One tab. twice daily Aspirin 81 Mg Tabs (Aspirin) ..... One tab. daily Otis Ang MD routine Otis Ang MD test results : H er updated medication list for this problem includes: Plavix 75 Mg Tabs (Clopidogrel bisulfate) ..... One tab. daily Enalapril Maleate 10 Mg Tabs (Enalapril maleate) ..... Take one tablet by mouth one time daily Metoprolol Tartrate 50 Mg Tabs (Metoprolol tartrate) ..... One tab. twice daily Simvastatin 40 Mg Tabs (Simvastatin) ..... One tab. at bedtime instead of lipitor Aspirin 81 Mg Tabs (Aspirin) ..... One tab. daily Niaspan 500 Mg Tbcr (Niacin (antihyperlipidemic)) ..... One tab. at bedtime BP today: 135/80 Prior BP: 128/80 (12/02/2010) N uclear Stress Findings: 1. Abnormal myocardial perfusion imaging after vasodilator stress with Regadenoson. 2 . Normal left ventricular systolic function with a calculated ejection fraction of 68%. 3 . Myocardial scintigraphy demonstrates anterior wall ischemia. (12/09/2010) S tress Echo Findings: Normal chamber size. N ormal valves. N ormal left ventricular systolic function. N o ECG changes diagnostic of ischemia. (10/22/2004) C ardiac Cath: EF - 45%. 1 -2+ mitral regurgitation. S evere 2 vessel CAD with the RCA being the culprit vessel and causing the inferior SD. The LAD also had a severe setnosis. (03/15/2007) C ardiac Cath Comments: Successful stenting of the RCA with a 2.5 x 18mm [place] stent, and of the LAD with a 2.5 x 18mm [place] stent. (03/15/2007) C arotid Doppler/Duplex: Mild smooth atherosclerotic plaque bilaterally (<50%). Normal Doppler velocities. Antegrade flow into both vertebrals. [facility] (05/07/2008) T roponin I: <0.04 (11/29/2010) Hgb: 14.5 (11/29/2010) HCT: 42.4 (11/29/2010) RBC: 4.63 (11/29/2010) WBC: 11.6 (11/29/2010) B UN: 11.0 (11/29/2010) Creat: 0.93 (11/29/2010) Glucose: 102 (11/29/2010) N a+: 137 (11/29/2010) K+: 4.0 (11/29/2010) Cl: 106 (11/29/2010) PT: 10.4 (11/29/2010) INR: 1.0 (11/29/2010) P TT: 28.3 (11/29/2010) Otis Ang MD test results : H er updated medication list for this problem includes: Plavix 75 Mg Tabs (Clopidogrel bisulfate) ..... One tab. daily Enalapril Maleate 10 Mg Tabs (Enalapril maleate) ..... Take one tablet by mouth one time daily Metoprolol Tartrate 50 Mg Tabs (Metoprolol tartrate) ..... One tab. twice daily Simvastatin 40 Mg Tabs (Simvastatin) ..... One tab. at bedtime instead of lipitor Aspirin 81 Mg Tabs (Aspirin) ..... One tab. daily Niaspan 500 Mg Tbcr (Niacin (antihyperlipidemic)) ..... One tab. at bedtime BP today: 135/80 Prior BP: 128/80 (12/02/2010) N uclear Stress Findings: 1. Abnormal myocardial perfusion imaging after vasodilator stress with Regadenoson. 2 . Normal left ventricular systolic function with a calculated ejection fraction of 68%. 3 . Myocardial scintigraphy demonstrates anterior wall ischemia. (12/09/2010) S tress Echo Findings: Normal chamber size. N ormal valves. N ormal left ventricular systolic function. N o ECG changes diagnostic of ischemia. (10/22/2004) C ardiac Cath: EF - 45%. 1 -2+ mitral regurgitation. S evere 2 vessel CAD with the RCA being the culprit vessel and causing the inferior SD. The LAD also had a severe setnosis. (03/15/2007) C ardiac Cath Comments: Successful stenting of the RCA with a 2.5 x 18mm Cypher stent, and of the LAD with a 2.5 x 18mm Cypher stent. (03/15/2007) C arotid Doppler/Duplex: Mild smooth atherosclerotic plaque bilaterally (<50%). Normal Doppler velocities. Antegrade flow into both vertebrals. [facility] (05/07/2008) T roponin I: <0.04 (11/29/2010) Hgb: 14.5 (11/29/2010) HCT: 42.4 (11/29/2010) RBC: 4.63 (11/29/2010) WBC: 11.6 (11/29/2010) B UN: 11.0 (11/29/2010) Creat: 0.93 (11/29/2010) Glucose: 102 (11/29/2010) N a+: 137 (11/29/2010) K+: 4.0 (11/29/2010) Cl: 106 (11/29/2010) PT: 10.4 (11/29/2010) INR: 1.0 (11/29/2010) P TT: 28.3 (11/29/2010) Otis Ang MD test results : H er updated medication list for this problem includes: Enalapril Maleate 10 Mg Tabs (Enalapril maleate) ..... Take one tablet by mouth one time daily Metoprolol Tartrate 50 Mg Tabs (Metoprolol tartrate) ..... One tab. twice daily Aspirin 81 Mg Tabs (Aspirin) ..... One tab. daily BP today: 135/80 P rior BP: 128/80 (12/02/2010) Labs Reviewed: C reat: 0.93 (11/29/2010) Otis Ang MD test results Otis Ang MD test results : H er updated medication list for this problem includes: Plavix 75 Mg Tabs (Clopidogrel bisulfate) ..... One tab. daily Enalapril Maleate 10 Mg Tabs (Enalapril maleate) ..... Take one tablet by mouth one time daily Metoprolol Tartrate 50 Mg Tabs (Metoprolol tartrate) ..... One tab. twice daily Aspirin 81 Mg Tabs (Aspirin) ..... One tab. daily w ill rx a cath and will refill her effexor rx Otis Ang MD Signed out at [facility] Otis rose MD Signed out at [facility] .[facility].: H er updated medication list for this problem includes: Plavix 75 Mg Tabs (Clopidogrel bisulfate) ..... One tab. daily Enalapril Maleate 10 Mg Tabs (Enalapril maleate) ..... Take one tablet by mouth one time daily Metoprolol Tartrate 50 Mg Tabs (Metoprolol tartrate) ..... One tab. twice daily Simvastatin 40 Mg Tabs (Simvastatin) ..... One tab. at bedtime instead of lipitor Aspirin 81 Mg Tabs (Aspirin) ..... One tab. daily Niaspan 500 Mg Tbcr (Niacin (antihyperlipidemic)) ..... One tab. at bedtime s he had chest discomfort and i will rx a stress test Otis Ang MD routine art dop prior to Francheska Naima larsen NP routine art dop prio r to: H er updated medication list for this problem includes: Plavix 75 Mg Tabs (Clopidogrel bisulfate) ..... One tab. daily Aspirin 81 Mg Tabs (Aspirin) ..... One tab. daily Carotid Duplex Scan: M ild smooth atherosclerotic plaque bilaterally (<50%). Normal Doppler velocities. Antegrade flow into both vertebrals. [facility] (05/07/2008) Echocardiogram: N ormal left ventricular systolic function. Normal left ventricular size. Normal left ventricular wall thickness. Abnormal septal motion. There is E to A wave reversal consistent with impaired LV relaxation. Left ventricular ejection fraction is estimated at 55 %. T here is trace physiologic mitral valve regurgitation. There is non-specific thickening of the mitral valve leaflets. GC (06/10/2009) Francheska Tabor NP routine art dop prio r to: H er updated medication list for this problem includes: Lipitor 10 Mg Tabs (Atorvastatin calcium) ..... One tab. daily Niaspan 500 Mg Tbcr (Niacin (antihyperlipidemic)) ..... One tab. at bedtime BP today: / Prior BP: 126/88 (06/25/2009) Francheska Tabor NP routine art dop prio r to: H er updated medication list for this problem includes: Enalapril Maleate 10 Mg Tabs (Enalapril maleate) ..... Take one tablet by mouth one time daily Metoprolol Tartrate 50 Mg Tabs (Metoprolol tartrate) ..... One tab. twice daily Aspirin 81 Mg Tabs (Aspirin) ..... One tab. daily Prior BP: 126/88 (06/25/2009) Francheska Tabor NP routine art dop prio r to: H er updated medication list for this problem includes: Plavix 75 Mg Tabs (Clopidogrel bisulfate) ..... One tab. daily Enalapril Maleate 10 Mg Tabs (Enalapril maleate) ..... Take one tablet by mouth one time daily Metoprolol Tartrate 50 Mg Tabs (Metoprolol tartrate) ..... One tab. twice daily Lipitor 10 Mg Tabs (Atorvastatin calcium) ..... One tab. daily Aspirin 81 Mg Tabs (Aspirin) ..... One tab. daily Niaspan 500 Mg Tbcr (Niacin (antihyperlipidemic)) ..... One tab. at bedtime BP today: / Prior BP: 126/88 (06/25/2009) N uclear Stress Findings: 1. Jareth protocol exercise tolerance test with limited functional capacity.. 2 . Normal left ventricular size and function with a calculated ejection fraction of 55%. 3 . Myocardial scintigraphy is normal without evidence for previous myocardial infarction or reversible ischemia. [facility] (05/07/2008) S tress Echo Findings: Normal chamber size. N ormal valves. N ormal left ventricular systolic function. N o ECG changes diagnostic of ischemia. (10/22/2004) C ardiac Cath: EF - 45%. 1 -2+ mitral regurgitation. S evere 2 vessel CAD with the RCA being the culprit vessel and causing the inferior SD. The LAD also had a severe setnosis. (03/15/2007) C ardiac Cath Comments: Successful stenting of the RCA with a 2.5 x 18mm Cypher stent, and of the LAD with a 2.5 x 18mm Cypher stent. (03/15/2007) C arotid Doppler/Duplex: Mild smooth atherosclerotic plaque bilaterally (<50%). Normal Doppler velocities. Antegrade flow into both vertebrals. [facility] (05/07/2008) Francheska Tabor NP routine art dop prior to:BASIM rep eated today Francheska Tabor NP routine art dop prio r to: H er updated medication list for this problem includes: Plavix 75 Mg Tabs (Clopidogrel bisulfate) ..... One tab. daily Enalapril Maleate 10 Mg Tabs (Enalapril maleate) ..... Take one tablet by mouth one time daily Metoprolol Tartrate 50 Mg Tabs (Metoprolol tartrate) ..... One tab. twice daily Lipitor 10 Mg Tabs (Atorvastatin calcium) ..... One tab. daily Aspirin 81 Mg Tabs (Aspirin) ..... One tab. daily Niaspan 500 Mg Tbcr (Niacin (antihyperlipidemic)) ..... One tab. at bedtime BP today:124 /72 Prior BP: 126/88 (06/25/2009) Nuclear Stress Findings: 1. Jareth protocol exercise tolerance test with limited functional capacity.. 2 . Normal left ventricular size and function with a calculated ejection fraction of 55%. 3. Myocardial scintigraphy is normal without evidence for previous myocardial infarction or reversible ischemia. [facility] (05/07/2008) S tress Echo Findings: Normal chamber size. N ormal valves. N ormal left ventricular systolic function. N o ECG changes diagnostic of ischemia. (10/22/2004) C ardiac Cath: EF - 45%. 1 -2+ mitral regurgitation. S evere 2 vessel CAD with the RCA being the culprit vessel and causing the inferior SD. The LAD also had a severe setnosis. (03/15/2007) C ardiac Cath Comments: Successful stenting of the RCA with a 2.5 x 18mm Cypher stent, and of the LAD with a 2.5 x 18mm Cypher stent. (03/15/2007) C arotid Doppler/Duplex: Mild smooth atherosclerotic plaque bilaterally (<50%). Normal Doppler velocities. Antegrade flow into both vertebrals. [facility] (05/07/2008) Francheska Tabor NP routine art dop prio r to: H er updated medication list for this problem includes: Enalapril Maleate 10 Mg Tabs (Enalapril maleate) ..... Take one tablet by mouth one time daily Metoprolol Tartrate 50 Mg Tabs (Metoprolol tartrate) ..... One tab. twice daily Aspirin 81 Mg Tabs (Aspirin) ..... One tab. daily Prior BP: 126/88 (06/25/2009) B P today 124/72 Francheska Tabor NP routine art dop prior to:BASIM rep eated today Francheska Tabor NP follow-up on tests Otis Ang MD follow-up on tests: H er updated medication list for this problem includes: Lipitor 10 Mg Tabs (Atorvastatin calcium) ..... One tab. daily Niaspan 500 Mg Tbcr (Niacin (antihyperlipidemic)) ..... One tab. at bedtime P lease adjust cholesterol medication to keep LDL less than 70 and HDL greater than 50 O rders: L IPID PANEL (7600) C OMPREHENSIVE METABOLIC PANEL W/EGFR (46479) Otis Ang MD follow-up on tests: H er updated medication list for this problem includes: Plavix 75 Mg Tabs (Clopidogrel bisulfate) ..... One tab. daily Enalapril Maleate 10 Mg Tabs (Enalapril maleate) ..... Take one tablet by mouth one time daily Metoprolol Tartrate 50 Mg Tabs (Metoprolol tartrate) ..... One tab. twice daily Lipitor 10 Mg Tabs (Atorvastatin calcium) ..... One tab. daily Aspirin 81 Mg Tabs (Aspirin) ..... One tab. daily Niaspan 500 Mg Tbcr (Niacin (antihyperlipidemic)) ..... One tab. at bedtime Otis Ang MD follow-up on tests: O rders: T OBACCO USE CESSATION INTERMEDIATE 3-10 MINUTES (CPT-83070) T he Patient was reencouraged to stop smoking. Otis Ang MD follow-up on tests: H er updated medication list for this problem includes: Enalapril Maleate 10 Mg Tabs (Enalapril maleate) ..... Take one tablet by mouth one time daily Metoprolol Tartrate 50 Mg Tabs (Metoprolol tartrate) ..... One tab. twice daily Aspirin 81 Mg Tabs (Aspirin) ..... One tab. daily Otis Ang MD follow-up on tests:h er legs are hurting on walking up steps. it appears that she may have some narrowing of the right side of her graft. w ill just rx smoking cessation and re check doppler in 6 months .l Otis Ang MD test results:latest basim was norm al Otis Ang MD test results: H er updated medication list for this problem includes: Plavix 75 Mg Tabs (Clopidogrel bisulfate) ..... One tab. daily Enalapril Maleate 10 Mg Tabs (Enalapril maleate) ..... Take one tablet by mouth one time daily Toprol Xl 100 Mg Tb24 (Metoprolol succinate) ..... One tab daily Lipitor 10 Mg Tabs (Atorvastatin calcium) ..... One tab. daily Aspirin 81 Mg Tabs (Aspirin) ..... One tab. daily Niaspan 500 Mg Tbcr (Niacin (antihyperlipidemic)) ..... One tab. at bedtime BP today: 125/76 Prior BP: 120/81 (09/06/2007) N uclear Stress Findings: 1. Jareth protocol exercise tolerance test with limited functional capacity.. 2 . Normal left ventricular size and function with a calculated ejection fraction of 55%. 3 . Myocardial scintigraphy is normal without evidence for previous myocardial infarction or reversible ischemia. [facility] (05/07/2008) S tress Echo Findings: Normal chamber size. N ormal valves. N ormal left ventricular systolic function. N o ECG changes diagnostic of ischemia. (10/22/2004) C ardiac Cath: EF - 45%. 1 -2+ mitral regurgitation. S evere 2 vessel CAD with the RCA being the culprit vessel and causing the inferior SD. The LAD also had a severe setnosis. (03/15/2007) C ardiac Cath Comments: Successful stenting of the RCA with a 2.5 x 18mm Cypher stent, and of the LAD with a 2.5 x 18mm Cypher stent. (03/15/2007) C arotid Doppler/Duplex: Mild smooth atherosclerotic plaque bilaterally (<50%). Normal Doppler velocities. Antegrade flow into both vertebrals. [facility] (05/07/2008) h ad a neg stress test. Otis Ang MD test results: H er updated medication list for this problem includes: Enalapril Maleate 10 Mg Tabs (Enalapril maleate) ..... Take one tablet by mouth one time daily Toprol Xl 100 Mg Tb24 (Metoprolol succinate) ..... One tab daily Aspirin 81 Mg Tabs (Aspirin) ..... One tab. daily BP today: 125/76 P rior BP: 120/81 (09/06/2007) Otis Ang MD SIGN/YARELI :exercising regularly. will check nuc stress prior to next visit. H er updated medication list for this problem includes: Plavix 75 Mg Tabs (Clopidogrel bisulfate) ..... One tab. daily Enalapril Maleate 10 Mg Tabs (Enalapril maleate) ..... Take one tablet by mouth one time daily Toprol Xl 100 Mg Tb24 (Metoprolol succinate) ..... One tab daily Lipitor 10 Mg Tabs (Atorvastatin calcium) ..... One tab. daily Aspirin 81 Mg Tabs (Aspirin) ..... One tab. daily Niaspan 500 Mg Tbcr (Niacin (antihyperlipidemic)) ..... One tab. at bedtime Otis Ang MD SIGN/YARELI :has quit encouraged to stay off it. Otis Ang MD SIGN/YARELI : H er updated medication list for this problem includes: Plavix 75 Mg Tabs (Clopidogrel bisulfate) ..... One tab. daily Lipitor 10 Mg Tabs (Atorvastatin calcium) ..... One tab. daily Aspirin 81 Mg Tabs (Aspirin) ..... One tab. daily Niaspan 500 Mg Tbcr (Niacin (antihyperlipidemic)) ..... One tab. at bedtime I mproved since had stenting of the right leg. check basim prior to next visit. Otis Ang MD Date Name Complete Echo Stress Regadenoson PROTHROMBIN TIME WIT H INR LIPID PANEL CBC (INCLUDES DIFF/P LT) BASIC METABOLIC PANE L W/EGFR COVID19 nasal swab ( LC) AIF Intervention - G C CT Angio AIF (Abd, l ower extremities) PROTHROMBIN TIME WIT H INR LIPID PANEL CBC (INCLUDES DIFF/P LT) BASIC METABOLIC PANE L W/EGFR Cardiac Cath - Left - GC AIF Intervention - G C Arterial Duplex Bi-L ower EX Complete Echo CT Angio AIF (Abd, l ower extremities) THYROID PANEL WITH T SH, 3RD GENERATION CBC (H/H, RBC, INDIC ES, WBC, PLT) COMPREHENSIVE METABO LIC PANEL, W/EGFR Arterial Duplex Bi-L ower EX Complete Echo Arterial Duplex Bi-L ower EX Arterial Duplex Bi-L ower EX Arterial Duplex Bi-L ower EX HEMOGLOBIN A1c COMPREHENSIVE METABO LIC PANEL W/EGFR LIPID PANEL Arterial Duplex Bi-L ower EX Arterial Duplex Bi-L ower EX Carotid Duplex Bilat eral Arterial Duplex Bi-L ower EX Complete Echo ECP Commercial THYROID PANEL WITH T SH, 3RD GENERATION LIPID PANEL COMPREHENSIVE METABO LIC PANEL W/EGFR Complete Echo Arterial Duplex Bi-L ower EX Arterial Duplex Bi-L ower EX Complete Echo THYROID PANEL WITH T SH, 3RD GENERATION LIPID PANEL COMPREHENSIVE METABO LIC PANEL W/EGFR Cardiac Cath - Left - GC Complete Echo Stress Test - Adenos ine LIPID PANEL COMPREHENSIVE METABO LIC PANEL W/EGFR COMPREHENSIVE METABO LIC PANEL W/EGFR LIPID PANEL Arterial Duplex Lowe r Extremity Bilateral Arterial Duplex Lowe r Extremity Bilateral Carotid Duplex Bilat eral Stress Test - Nuclea r HISTORY OF PROCEDURES Procedure Date Procedure Name Provider Procedure Notes S tatus EKG Otis Ang MD completed EKG Otis Ang MD completed EKG Otis Ang MD completed Schedule Followup Otis Ang MD in 6 mo co mpleted EKG Otis Ang MD completed EKG Otis Ang MD completed SNOMED-CT: [id number] Physical Exam, Performed: Pulse Exam of Foot Otis Ang MD completed SNOMED-CT: [id number] 044114 Current Medications Documented Otis Ang MD completed SNOMED-CT: [id number] Physical Exam, Performed: Pulse Exam of Foot Otis Ang MD completed EKG Otis Ang MD completed SNOMED-CT: [id number] Current Medications Documented Otis Ang MD completed SNOMED-CT: 95019091 Physical Exam, Performed: Pulse Exam of Foot Otis Ang MD completed SNOMED-CT: [id number] 085176 Current Medications Documented Otis Ang MD completed Dev Ang MD completed Dev Ang MD completed BERNARDO Ang MD completed Dev Ang MD completed Dev Ang MD completed Dev Ang MD completed Dev Ang MD completed BERNARDO Ang MD completed Dev Ang MD completed Dev Ang MD completed Dev Ang MD completed Dev Ang MD completed Dev Ang MD completed Dev Ang MD completed SNOMED-CT: [id number] Smoking Cessation Counseling Otis Ang MD completed Schedule Followup Otis Ang MD 6 months co mpleted SNOMED-CT: [id number] Current Medications Documented Otis Ang MD completed Dev Ang MD completed SNOMED-CT: [id number] Physical Exam, Performed: Pulse Exam of Foot tOis Ang MD completed SNOMED-CT: 359305806 100510 Current Medications Documented Otis Ang MD completed SNOMED-CT: 40599921 Physical Exam, Performed: Pulse Exam of Foot Otis Ang MD completed EKG Otis Ang MD completed SNOMED-CT: 305541701 926135 Current Medications Documented Otis Ang MD completed SNOMED-CT: [id number] Smoking Cessation Counseling Otis Ang MD completed SNOMED-CT: 42275668 Physical Exam, Performed: Pulse Exam of Foot Otis Ang MD completed SNOMED-CT: 794086452 029084 Current Medications Documented Otis Ang MD completed EKG Otis Ang MD completed EKG Otis Ang MD completed EKG Otis Ang MD completed
[2024-05-16 13:28] LABS: Carbon Dioxide > 40 mmol/L (22-30)
[2024-05-16 13:38] LABS: Influenza A QL RT-PCR Negative (Negative); Influenza B QL RT-PCR Negative (Negative); RSV RNA, RT-PCR Negative (Negative); SARS-CoV-2 RNA PCR Negative (Negative)
--- NOTE | 2024-05-16 13:48 | ED_ITS ---
HPI - General Adult General Chief complaint: Chest Pain Stated complaint: cp Time Seen by Provider: 05/16/24 12:05 History of Present Illness HPI narrative: Patient is a 63-year-old female presents emergency department chief complaint of shortness of breath and cough. Patient reports she has prior history of COPD and wears 3 L of nasal cannula oxygen at rest. The patient states over the last several days she has felt not so good reports that she has had a cough patient reports been nonproductive does report that she has been wheezing more the patient reports she had tightness in her chest with these episodes Related Data Home Medications ?Medication ?Instructions ?Recorded ?Confirmed ?Last Taken ?Type albuterol sulfate 90 mcg/actuation 2 puff inhalation Q6H PRN sob 03/27/23 03/27/23 Unknown History aerosol inhaler apixaban 5 mg tablet (Eliquis) 5 mg PO BID 03/27/23 03/27/23 Unknown History atorvastatin 80 mg tablet 80 mg PO HS 03/27/23 03/27/23 Unknown History budesonide 0.5 mg/2 mL suspension 0.5 mg inhalation BID 03/27/23 03/27/23 Unknown History for nebulization gabapentin 300 mg capsule 300 mg PO TID 03/27/23 03/27/23 Unknown History losartan 50 mg tablet 50 mg PO DAILY 03/27/23 03/27/23 Unknown History metoprolol succinate 50 mg 50 mg PO DAILY 03/27/23 03/27/23 Unknown History tablet,extended release 24 hr venlafaxine 37.5 mg tablet 37.5 mg PO BID 03/27/23 03/27/23 Unknown History Allergies Allergy/AdvReac Type Severity Reaction Status Date / Time Penicillins Allergy Other Verified 05/16/24 11:39 Review of Systems 2 Review of Systems: A 10 system review of systems was completed on the patient and is negative except for what is stated in the HPI. Nursing and ancillary documentation was reviewed. [facility] Past Medical History Medical History PAD (peripheral artery disease) Chronic respiratory failure Hypertension Depression Atrial fibrillation Coronary disease COPD (chronic obstructive pulmonary disease) Surgical History Surgical History Hx of peripheral artery bypass Family History Family History Father Mesothelioma Mother Heart disease Social History Social History Social History: Patient still smoking up to 3 cigarettes per day. No alcohol or drug use. Full code. Lives at home with son, dtr-in-law and grandchild. Full code. She nominates her son to be the one who would make medical decisions for her if she is unable. Smoking status: Light tobacco smoker Tobacco type: cigarettes Alcohol intake: never Substance use: never Substance use type: does not use Do You Feel Safe in your Home?: Yes Lack of Transportation: No Lack of Food: Never True Current Housing: I Have Housing Concerned About Future Housing: Decline to Answer Difficulty Paying Gas/Electric Bills: Decline to Answer Difficulty Paying for Meds: Decline to Answer Currently Unemployed: Decline to Answer Education: High School Diploma/GED Difficulty w/ Childcare or Family Care: Decline to Answer Spiritual care concerns: No Exam 2 Narrative: GENERAL: Well-appearing, well-nourished, and in no acute distress. HEAD: Normocephalic, atraumatic. EYES: PERRLA and EOMI. ENT: Nares clear, no rhinorrhea or epistaxis. Mucous membranes moist. NECK: Supple. CHEST: Scattered wheezes to auscultation. No respiratory distress. HEART: Regular rate and rhythm. No murmur heard. Normal peripheral pulses. ABDOMEN: Soft, nontender, nondistended, normal active bowel sounds. EXTREMITIES: Normal range of motion. No edema. SKIN: Warm, dry, no rash. NEURO: No focal deficits. Alert and oriented x3. PSYCH: Normal mood and affect. Course Vital Signs Vital signs: Vital Signs Temperature 36.6 C 05/16/24 11:50 Pulse Rate 100 05/16/24 11:50 Respiratory Rate 20 05/16/24 11:50 Blood Pressure 96/63 L 05/16/24 11:50 Pulse Oximetry 97 05/16/24 11:50 Oxygen Delivery Nasal Cannula 05/16/24 11:50 Oxygen Flow Rate 3 05/16/24 11:50 Temperature 36.6 C 05/16/24 11:50 Pulse Rate 97 05/16/24 16:16 Respiratory Rate 18 05/16/24 16:16 Blood Pressure 117/70 05/16/24 16:16 Pulse Oximetry 99 05/16/24 13:47 Oxygen Delivery Nasal Cannula 05/16/24 11:50 Oxygen Flow Rate 3 05/16/24 11:50 Medical Decision Making MDM Narrative Medical decision making narrative: Differential diagnosis of COPD exacerbation, hypercapnic respiratory failure, pneumonia, COVID flu RSV were negative chest x-ray showed No focal infiltrate. Electrolytes are within normal limits with exception of CO2 Blood gas showed a pH 7.325 pCO2 was 105 the patient was started on BiPAP Vital Signs Vital Signs: Vital Signs Temperature 36.6 C 05/16/24 11:50 Pulse Rate 100 05/16/24 11:50 Respiratory Rate 20 05/16/24 11:50 Blood Pressure 96/63 L 05/16/24 11:50 Pulse Oximetry 97 05/16/24 11:50 Oxygen Delivery Nasal Cannula 05/16/24 11:50 Oxygen Flow Rate 3 05/16/24 11:50 Temperature 36.6 C 05/16/24 11:50 Pulse Rate 97 05/16/24 16:16 Respiratory Rate 18 05/16/24 16:16 Blood Pressure 117/70 05/16/24 16:16 Pulse Oximetry 99 05/16/24 13:47 Oxygen Delivery Nasal Cannula 05/16/24 11:50 Oxygen Flow Rate 3 05/16/24 11:50 Lab Data 05/16/24 12:06 05/16/24 12:06 Labs: Lab Results 05/16/24 05/16/24 05/16/24 Range/Units 12:06 12:57 13:41 WBC 8.9 (4.5-10.0) K/mm3 RBC 3.91 L (4.2-5.4) M/mm3 Hgb 11.4 L (12.0-15.0) g/dL Hct 39.7 (37.0-47.0) % MCV 101.5 H (80-100) fl MCH 29.2 (26-34) pg MCHC 28.7 L (32-36) g/dl RDW 12.8 (11.5-14.5) % Plt Count 213 (150-375) k/mm3 MPV 9.7 (7.4-10.4) fl Immature Gran % (Auto) 0.2 (0-0.5) % Neut % (Auto) 76.8 H (45.5-73.1) % Lymph % (Auto) 14.5 L (18.3-44.2) % [place] % (Auto) 8.0 (2.6-8.5) % Eos % (Auto) 0.3 (0-4.4) % Baso % (Auto) 0.2 (0.2-1.2) % Lymph # (Auto) 1.29 (0.9-3.2) K/mm3 [place] # (Auto) 0.7 H (0.1-0.6) K/mm3 Eos # (Auto) 0.0 (0-0.3) K/mm3 Baso # (Auto) 0.0 (0.0-0.1) K/mm3 Abs Immat Gran (auto) 0.02 (0.00-0.031) K/mm3 Absolute Neuts (auto) 6.8 H (1.3-6.7) K/mm3 Absolute Nucleated RBC 0.000 (0.0-0.012) K/mm3 Band Neutrophils % Not Reportable Nucleated RBC % 0.0 (0.0-0.2) % Platelet Estimate Adequate (Adequate) Hypochromasia 1+ Stomatocytes 1+ Schistocytes None seen PT 15.4 H (11.1-14.7) Seconds INR 1.2 APTT 30.8 (22.3-36.8) Seconds Sodium 138 (137-145) mmol/L Potassium 5.0 (3.4-5.0) mmol/L Chloride 84 L (98-107) mmol/L Carbon Dioxide > 40 H (22-30) mmol/L Anion Gap (4-12) mmol/L BUN 20 H (7-17) mg/dL Creatinine 0.49 L (0.7-1.0) mg/dL Estim Creat Clear Calc 71 ml/min Estimated GFR > 60 (59 - ) Glucose 161 H (65-110) mg/dL Lactic Acid 1.1 (0.7-2.0) mmol/L Calcium 9.3 (8.4-10.2) mg/dL Magnesium 1.9 (1.6-2.3) mg/dL Total Bilirubin 1.0 (0.2-1.3) mg/dL AST 30 (14-36) U/L ALT 26 (6-35) U/L Alkaline Phosphatase 49 (38-126) U/L Troponin I < 0.012 (0.000-0.034) ng/mL NT-Pro-B Natriuret Pep 189 H (19.9-100) pg/mL Total Protein 7.0 (6.3-8.2) g/dL Albumin 3.7 (3.5-5.1) g/dL Lipase 485 H (23-300) U/L Procalcitonin 0.0 ng/mL Urine Color Yellow (Yellow) Urine Appearance Clear (Clear) Urine pH 6.0 (5.0-9.0) Ur Specific [place] 1.015 (1.001-1.035) Urine Protein Negative (Negative) mg/dL Urine Glucose (UA) Negative (Negative) mg/dL Urine Ketones Negative (Negative) mg/dL Ur Blood (Man) Negative (Negative) Urine Nitrate Negative (Negative) Urine Bilirubin Negative (Negative) Urine Urobilinogen 0.2 (<2.0) mg/dL Leukocyte Esterase Rfl Negative (Negative) KARENA/UL Influenza A (RT-PCR) Negative (Negative) Influenza B (RT-PCR) Negative (Negative) RSV (RT-PCR) Negative (Negative) SARS-CoV-2 RNA (RT-PCR) Negative (Negative) 05/16/24 Range/Units 16:10 WBC (4.5-10.0) K/mm3 RBC (4.2-5.4) M/mm3 Hgb (12.0-15.0) g/dL Hct (37.0-47.0) % MCV (80-100) fl MCH (26-34) pg MCHC (32-36) g/dl RDW (11.5-14.5) % Plt Count (150-375) k/mm3 MPV (7.4-10.4) fl Immature Gran % (Auto) (0-0.5) % Neut % (Auto) (45.5-73.1) % Lymph % (Auto) (18.3-44.2) % [place] % (Auto) (2.6-8.5) % Eos % (Auto) (0-4.4) % Baso % (Auto) (0.2-1.2) % Lymph # (Auto) (0.9-3.2) K/mm3 [place] # (Auto) (0.1-0.6) K/mm3 Eos # (Auto) (0-0.3) K/mm3 Baso # (Auto) (0.0-0.1) K/mm3 Abs Immat Gran (auto) (0.00-0.031) K/mm3 Absolute Neuts (auto) (1.3-6.7) K/mm3 Absolute Nucleated RBC (0.0-0.012) K/mm3 Band Neutrophils % Nucleated RBC % (0.0-0.2) % Platelet Estimate (Adequate) Hypochromasia Stomatocytes Schistocytes PT (11.1-14.7) Seconds INR APTT (22.3-36.8) Seconds Sodium (137-145) mmol/L Potassium (3.4-5.0) mmol/L Chloride (98-107) mmol/L Carbon Dioxide (22-30) mmol/L Anion Gap (4-12) mmol/L BUN (7-17) mg/dL Creatinine (0.7-1.0) mg/dL Estim Creat Clear Calc ml/min Estimated GFR (59 - ) Glucose (65-110) mg/dL Lactic Acid (0.7-2.0) mmol/L Calcium (8.4-10.2) mg/dL Magnesium (1.6-2.3) mg/dL Total Bilirubin (0.2-1.3) mg/dL AST (14-36) U/L ALT (6-35) U/L Alkaline Phosphatase (38-126) U/L Troponin I < 0.012 (0.000-0.034) ng/mL NT-Pro-B Natriuret Pep (19.9-100) pg/mL Total Protein (6.3-8.2) g/dL Albumin (3.5-5.1) g/dL Lipase (23-300) U/L Procalcitonin ng/mL Urine Color (Yellow) Urine Appearance (Clear) Urine pH (5.0-9.0) Ur Specific [place] (1.001-1.035) Urine Protein (Negative) mg/dL Urine Glucose (UA) (Negative) mg/dL Urine Ketones (Negative) mg/dL Ur Blood (Man) (Negative) Urine Nitrate (Negative) Urine Bilirubin (Negative) Urine Urobilinogen (<2.0) mg/dL Leukocyte Esterase Rfl (Negative) KARENA/UL Influenza A (RT-PCR) (Negative) Influenza B (RT-PCR) (Negative) RSV (RT-PCR) (Negative) SARS-CoV-2 RNA (RT-PCR) (Negative) ABG Data ABG results: 05/16/24 16:44 Puncture Site Right brachial ABG pH 7.325 L ABG pCO2 105.2 H* ABG pO2 81.7 ABG PO2/FiO2 Ratio 2.55 ABG HCO3 53.6 H ABG O2 Saturation 94.2 L ABG O2 Content 16.2 ABG Base Excess 22.4 A-a Gradient 23.4 Oxyhemoglobin 95.5 Total Hemoglobin 12.0 O2 Delivery Device Nasal cannula O2 Liters/Min 3.0 FiO2 32 Critical Care Time Critical Care Time Critical Care Time: Yes Total Critical Care Time: 35 Discharge Plan Discharge Clinical Impression: Acute hypercapnic respiratory failure, Acute exacerbation of chronic obstructive pulmonary disease Patient Disposition: Still a Patient Condition: Stable Patient Language: Hebrew Prescriptions: No Action metoprolol succinate 50 mg tablet extended release 24 hr 50 mg PO DAILY venlafaxine 37.5 mg tablet 37.5 mg PO BID gabapentin 300 mg capsule 300 mg PO TID budesonide 0.5 mg/2 mL suspension for nebulization 0.5 mg inhalation BID albuterol sulfate 90 mcg/actuation HFA aerosol inhaler 2 puff INHALATION Q6H PRN (Reason: sob) Eliquis 5 mg tablet 5 mg PO BID losartan 50 mg tablet 50 mg PO DAILY atorvastatin 80 mg tablet 80 mg PO HS aspirin 325 mg Tablet,Delayed Release (Dr/Ec) 325 mg PO QAM 30 Days Qty: 30 0RF Trelegy Ellipta 100-62.5-25 mcg blister with device 1 inh inhalation DAILY 30 Days Qty: 60 0RF prednisone 10 mg tablets,dose pack See Rx Instructions .ROUTE .COMPLEX Qty: 21 0RF Rx Instructions: orally per package directions Follow-up/Referrals: UNKNOWN,DOCTOR [Primary Care Provider] - Time of Disposition: 17:23
[2024-05-16 13:53] LABS: Add Urine Microscopic? NO; Appearance Urine Clear (Clear); Bilirubin Urine Negative (Negative); Blood Urine Negative (Negative); Color Urine Yellow (Yellow); Glucose Urine UA Negative (Negative); Ketones Urine Negative (Negative); Leukocyte Esterase Ur Negative LEU/UL (Negative); Nitrate Urine Negative (Negative); Protein Urine Negative (Negative); Specific Grav Ur 1.015 (1.001-1.035); Urobilinogen Urine 0.2 mg/dL (<2.0)
--- NOTE | 2024-05-16 15:10 | ECG_ITS ---
Test Date: 2024-05-16 15:19:09 Measurements Intervals [place] Rate: 94 P: 82 [place]: 118 QRS: 89 QRSD: 89 T: 47 QT: 330 QTc: 414 Interpretive Statements SINUS RHYTHM WITH SHORT [place] INTERVAL POSSIBLE RIGHT ATRIAL ENLARGEMENT POSSIBLE LEFT ATRIAL ENLARGEMENT BASELINE ARTIFACT- I, II, III, AVR, AVL, AVF, V1-V6 BORDERLINE ECG Compared to ECG 05/16/2024 11:58:37 Short [place] interval now present Electronically Signed On 05-16-2024 15:29:36 [employer] by Greg Vargas D.O.
--- NOTE | 2024-05-16 16:23 | PCRCNOTE ---
RT not notified on pager of ABG, which is why it is out of the time limit.
[2024-05-16 16:39] LABS: Troponin I < 0.012 ng/mL (0.000-0.034)
[2024-05-16 17:08] LABS: Alveolar/Arterial O2 Gradient 23.4 mmHg; Base Excess ABG 22.4 mEq/l (+/-2.0); Fractional Inspired Oxygen 32 %; HCO3 ABG 53.6 mEq/l (22.0-26.0); Oxygen Content ABG 16.2 %vol (16.0-22.0); Oxygen Saturation ABG 94.2 % (95.0-100.0); Oxyhemoglobin 95.5 % THb (90.0-100.0); PO2 ABG 81.7 mmHg (80.0-100.0); PO2 FiO2 Ratio Arterial Blood 2.55 %; pH ABG 7.325 (7.350-7.450)
[2024-05-16 17:11] LABS: Device NASAL CANNULA; Modified Allen's Test Pass; PCO2 ABG 105.2 mmHg (35.0-45.0); Site Drawn RIGHT BRACHIAL
--- NOTE | 2024-05-16 18:02 | PM.IMHP ---
H&P: HPI History of Present Illness Date/Time: 05/16/24 18:02 Chief Complaint: Chest Tightness, SOB Narrative: 63 y/o F presents here with chest tightness and shortness of breath with PMH of peripheral artery disease, chronic respiratory failure, hypertension, depression, atrial fibrillation, coronary disease, and COPD. The patient presents here from home for further evaluation of shortness of breath, cough, and chest tightness. She reports onset of of a nonproductive cough within the last 24 hours. Now accompanied by wheezing, tightness in her chest, and shortness of breath. She denies associated chest pain, nausea, vomiting, diarrhea, fever, chills, body aches. Chest tightness/shortness of breath now alleviated with BiPAP. She has a history of COPD and chronic respiratory failure, on 3L nasal cannula at rest. Initial VS at presentation: 97.9? F, HR 100, RR 20, 96/63, and 97% on 3L nasal cannula. ED workup showed: No leukocytosis, hemoglobin 11.4 (12.4 in 03/2023), INR 1.2, CO2 greater than 40, creatinine 0.49 and GFR >60, glucose 161, lactic 1.1, initial troponin negative x2, BNP 189, lipase 45, and procalcitonin 0.0. UA unremarkable. Viral PCR negative. CXR showed emphysema. Initial EKG showed sinus rhythm. Review of Systems Review of Systems: All systems reviewed & are unremarkable except as noted in HPI and below PMFSH Past Medical History Medical History PAD (peripheral artery disease) Coronary disease Atrial fibrillation COPD (chronic obstructive pulmonary disease) Anxiety Chronic respiratory failure Hypertension Depression Surgical History Surgical History Hx of peripheral artery bypass Family History Family History Father Mesothelioma Mother Heart disease Social History Social History Social History: Patient still smoking up to 3 cigarettes per day. No alcohol or drug use. Full code. Lives at home with son, dtr-in-law and grandchild. Full code. She nominates her son to be the one who would make medical decisions for her if she is unable. Smoking status: Light tobacco smoker Tobacco type: cigarettes Alcohol intake: never Substance use: never Substance use type: does not use Do You Feel Safe in your Home?: Yes Lack of Transportation: No Lack of Food: Never True Current Housing: I Have Housing Concerned About Future Housing: Decline to Answer Difficulty Paying Gas/Electric Bills: Decline to Answer Difficulty Paying for Meds: Decline to Answer Currently Unemployed: Decline to Answer Education: High School Diploma/GED Difficulty w/ Childcare or Family Care: Decline to Answer Spiritual care concerns: No Meds Home Medications and Allergies Home Medications ?Medication ?Instructions ?Recorded ?Confirmed ?Type albuterol sulfate 90 mcg/actuation 2 puff inhalation Q6H PRN sob 03/27/23 03/27/23 History aerosol inhaler apixaban 5 mg tablet (Eliquis) 5 mg PO BID 03/27/23 03/27/23 History atorvastatin 80 mg tablet 80 mg PO HS 03/27/23 03/27/23 History budesonide 0.5 mg/2 mL suspension 0.5 mg inhalation BID 03/27/23 03/27/23 History for nebulization gabapentin 300 mg capsule 300 mg PO TID 03/27/23 03/27/23 History losartan 50 mg tablet 50 mg PO DAILY 03/27/23 03/27/23 History metoprolol succinate 50 mg 50 mg PO DAILY 03/27/23 03/27/23 History tablet,extended release 24 hr venlafaxine 37.5 mg tablet 37.5 mg PO BID 03/27/23 03/27/23 History aspirin 325 mg tablet,delayed 325 mg PO QAM 1 month #30 tabs 04/01/23 Rx release fluticasone fur. 100 mcg-umeclid 1 inh inhalation DAILY 1 month #60 04/01/23 Rx 62.5 mcg-vilant 25 mcg ea inhalat.powder (Trelegy Ellipta) prednisone 10 mg tablets in a dose See Rx Instructions PO .COMPLEX 04/01/23 Rx pack #21 ea Allergies Allergy/AdvReac Type Severity Reaction Status Date / Time Penicillins Allergy Other Verified 05/16/24 11:39 Vital Signs Vital Signs - 24 hr 05/16/24 11:50 05/16/24 11:57 05/16/24 11:58 Temperature 97.9 F Pulse Rate 100 97 96 Respiratory Rate 20 17 17 Blood Pressure 96/63 L 109/61 Pulse Oximetry 97 99 100 Oxygen Delivery Nasal Cannula Oxygen Flow Rate 3 Fraction of Inspired Oxygen 05/16/24 12:00 05/16/24 12:01 05/16/24 12:15 Temperature Pulse Rate 97 97 94 Respiratory Rate 24 H 28 H 21 H Blood Pressure 96/63 L Pulse Oximetry 100 Oxygen Delivery Oxygen Flow Rate Fraction of Inspired Oxygen 05/16/24 12:34 05/16/24 12:46 05/16/24 12:51 Temperature Pulse Rate 95 94 92 Respiratory Rate 22 H 22 H 25 H Blood Pressure 113/58 L Pulse Oximetry Oxygen Delivery Oxygen Flow Rate Fraction of Inspired Oxygen 05/16/24 13:05 05/16/24 13:15 05/16/24 13:16 Temperature Pulse Rate 95 93 92 Respiratory Rate 17 14 15 Blood Pressure 107/57 L Pulse Oximetry Oxygen Delivery Oxygen Flow Rate Fraction of Inspired Oxygen 05/16/24 13:38 05/16/24 13:47 05/16/24 14:00 Temperature Pulse Rate 101 H 98 94 Respiratory Rate 37 H 21 H 23 H Blood Pressure Pulse Oximetry 99 Oxygen Delivery Oxygen Flow Rate Fraction of Inspired Oxygen 05/16/24 14:01 05/16/24 14:18 05/16/24 14:36 Temperature Pulse Rate 95 95 95 Respiratory Rate 27 H 21 H 19 Blood Pressure 100/59 L Pulse Oximetry Oxygen Delivery Oxygen Flow Rate Fraction of Inspired Oxygen 05/16/24 15:02 05/16/24 15:03 05/16/24 15:04 Temperature Pulse Rate 95 95 97 Respiratory Rate 15 16 22 H Blood Pressure 88/63 L 110/64 Pulse Oximetry Oxygen Delivery Oxygen Flow Rate Fraction of Inspired Oxygen 05/16/24 15:20 05/16/24 15:30 05/16/24 15:31 Temperature Pulse Rate 94 91 92 Respiratory Rate 22 H 20 18 Blood Pressure 105/64 Pulse Oximetry Oxygen Delivery Oxygen Flow Rate Fraction of Inspired Oxygen 05/16/24 15:45 05/16/24 15:46 05/16/24 16:02 Temperature Pulse Rate 97 93 94 Respiratory Rate 23 H 20 16 Blood Pressure 97/68 L Pulse Oximetry Oxygen Delivery Oxygen Flow Rate Fraction of Inspired Oxygen 05/16/24 16:15 05/16/24 16:16 05/16/24 16:17 Temperature Pulse Rate 92 97 94 Respiratory Rate 22 H 18 19 Blood Pressure 117/70 Pulse Oximetry Oxygen Delivery Oxygen Flow Rate Fraction of Inspired Oxygen 05/16/24 16:32 05/16/24 16:47 05/16/24 17:02 Temperature Pulse Rate 105 H 90 92 Respiratory Rate 19 25 H 17 Blood Pressure Pulse Oximetry Oxygen Delivery Oxygen Flow Rate Fraction of Inspired Oxygen 05/16/24 17:16 05/16/24 17:17 05/16/24 17:51 Temperature Pulse Rate 97 97 Respiratory Rate 16 25 H Blood Pressure 108/64 Pulse Oximetry 100 Oxygen Delivery BiPAP Oxygen Flow Rate Fraction of Inspired Oxygen 32 05/16/24 17:58 Temperature Pulse Rate 104 H Respiratory Rate 20 Blood Pressure Pulse Oximetry 100 Oxygen Delivery BiPAP Oxygen Flow Rate Fraction of Inspired Oxygen Exam Const: General: comfortable and no acute distress Other: , female, thin HENMT: Face/Nose/Sinus: Normal nares present Mouth: Yes dry mucous membranes Other: BiPAP in place, tolerating well Eyes: General: appearance normal, both eyes and all related structures Sclera: sclerae normal Pupils: Equal, round and reactive pupils present EOM: EOMs intact bilaterally Resp: Effort & Inspection: normal respiratory effort Other: Modestly diminished air movement, crackles in the left lung base. No other adventitious lung sounds. Cardio: Rate: regular rate Rhythm: regular rhythm Other: S1-S2 present without murmur, rub, ectopy GI: Other: Abdomen soft, nondistended, nontender. Skin: General skin exam: normal color and no rashes or lesions noted Wounds: no wounds Neuro: Speech: normal speech Motor exam (neuro): 5/5 motor strength present throughout Sensory Exam: normal sensation Other: A&O x3 Extrem: General: normal to inspection Psych: Mental Status: mental status grossly normal Other: Patient mildly agitated/anxious H&P: Results Labs Labs: Short CBC 05/16/24 Range/Units 12:06 WBC 8.9 (4.5-10.0) K/mm3 Hgb 11.4 L (12.0-15.0) g/dL Hct 39.7 (37.0-47.0) % Plt Count 213 (150-375) k/mm3 [facility] 05/16/24 12:06 Sodium 138 Potassium 5.0 Chloride 84 L Carbon Dioxide > 40 H BUN 20 H Creatinine 0.49 L Glucose 161 H Calcium 9.3 Cardiac Enzymes 05/16/24 05/16/24 Range/Units 12:06 16:10 Troponin I < 0.012 < 0.012 (0.000-0.034) ng/mL Liver Function 05/16/24 Range/Units 12:06 Total Bilirubin 1.0 (0.2-1.3) mg/dL AST 30 (14-36) U/L ALT 26 (6-35) U/L Alkaline Phosphatase 49 (38-126) U/L Albumin 3.7 (3.5-5.1) g/dL Urine 05/16/24 Range/Units 13:41 Urine Color Yellow (Yellow) Urine Appearance Clear (Clear) Urine pH 6.0 (5.0-9.0) Ur Specific [place] 1.015 (1.001-1.035) Urine Protein Negative (Negative) mg/dL Urine Glucose (UA) Negative (Negative) mg/dL Assessment and Plan Assessment and plan (1) Acute hypercapnic respiratory failure: Code(s): J96.02 - Acute respiratory failure with hypercapnia Status: Acute Assessment and Plan: - CXR: Emphysema - EKG, initial: Sinus rhythm, possible right atrial enlargement, minimal Q-waves inferior leads, baseline artifact - Hgb 11.4 - viral PCR negative - ABG, initial: pH 7.325, pCO2 105.2, pO2 81.7, HCO3 53.6, O2 sat 94.2 % on 3 L. Repeat ABG showed CO2 of 85.8, will continue BiPAP. Recheck ABG in a.m.. BiPAP initiated due to significant elevation in CO2 levels. Will repeat ABG this evening. (2) COPD exacerbation: Code(s): J44.1 - Chronic obstructive pulmonary disease with (acute) exacerbation Status: Acute Assessment and Plan: - DuoNeb IJHAN - Solu-Medrol 60 IV Q8 - continue maintenance medications - start ceftriaxone and azithromycin on 05/16 for COPD exacerbation (3) Hypertension: Qualifiers: Hypertension type: primary hypertension Qualified Code(s): I10 - Essential (primary) hypertension Code(s): I10 - Essential (primary) hypertension Status: Acute Assessment and Plan: - chronic, currently 120/69. Initially soft. - hold home medications, resume when appropriate - monitor Plan Diet: Heart healthy GI Prophylaxis: Not currently indicated DVT Prophylaxis: SCDs Lines: Peripheral Code Status: Full code Quality VTE Prophylaxis VTE prophylaxis: mechanical ordered Hospitalist MIPS Advance Care Plan I have confirmed that the patient's Advanced Care Plan is present, code status is documented, or surrogate decision maker is listed in patient medical record.: Yes Medication Reconciliation I have utilized all available resources to obtain, update and review the patients current medications (includes all prescriptions, OTC, herbals, cannabis, and nutritional supplements).: Yes
[2024-05-16 21:06] LABS: Troponin I < 0.012 ng/mL (0.000-0.034)
[2024-05-16 21:59] LABS: Base Excess ABG 20.9 mEq/l (+/-2.0); Fractional Inspired Oxygen 32 %; HCO3 ABG 50.2 mEq/l (22.0-26.0); Oxygen Content ABG 15.9 %vol (16.0-22.0); Oxygen Saturation ABG 94.7 % (95.0-100.0); Oxyhemoglobin 95.2 % THb (90.0-100.0); PCO2 ABG 85.8 mmHg (35.0-45.0); PO2 ABG 78.8 mmHg (80.0-100.0); PO2 FiO2 Ratio Arterial Blood 2.46 %; Total Hemoglobin 11.8 g/dL (12.0-18.0); pH ABG 7.385 (7.350-7.450)
[2024-05-16 22:00] LABS: Device NON-INVASIVE VENT; Non-Invasive Expiratory Pressure 6 CMH2O; Non-Invasive Inspiratory Pressure 12 CMH2O; Non-Invasive Vent Rate 18 /MIN; Site Drawn RIGHT BRACHIAL
[2024-05-16] MEDS: AZITHROMYCIN 500 MG/NS 250 ML 500 MG/250 ML BAG 250 MG IVPB (22:04)
[2024-05-16] MEDS: methylPREDNISolone SOD SUCC 125 MG VIAL 60 MG IV PUSH (22:05)
--- NOTE | 2024-05-16 22:15 | PCRCNOTE ---
Window of time for 1999 administration has passed. See next scheduled administration.
--- NOTE | 2024-05-16 23:19 | ADMGEN ---
This patient, Carly Oliveira, was admitted to IMU Room 202-. at 2255 Patient/family oriented to hospital policies and general routines including ID bracelet, bed and alarms, visiting hours, pain management, procedures, bathroom and other care routines, personal items, smoking policy, room service/diet, and visiting hours. Information on how to activate the Rapid Response Team has been discussed. Patient/Family are encouraged to report perceived risks to care and to ask questions if they do not understand what they are told or what they should do.
[2024-05-17] VITALS (28 sets, daily range): BP systolic 99–144; BP diastolic 54–81; PULSE 89–139; RESP 18–30; TEMP 36.3–37.1; O2SAT 93–100; BMI 14.3
[2024-05-17 04:34] LABS: Basophils Percent Auto 0.3 % (0.2-1.2); Eosinophils Percent Auto 0.1 % (0-4.4); Hematocrit 41.8 % (37.0-47.0); Hemoglobin 12.2 g/dL (12.0-15.0); Immature Granulocyte Absolute 0.03 K/mm3 (0.00-0.031); Immature Granulocyte Percent A 0.4 % (0-0.5); Lymphocytes Percent Auto 12.8 % (18.3-44.2); Mean Corpuscular HGB Conc 29.2 g/dl (32-36); Mean Corpuscular Hemoglobin 29.3 pg (26-34); Mean Corpuscular Volume 100.2 fl (80-100); Mean Platelet Volume 9.8 fl (7.4-10.4); Monocytes Absolute Auto 0.1 K/mm3 (0.1-0.6); Monocytes Percent Auto 1.1 % (2.6-8.5); Neutrophils Percent Auto 85.3 % (45.5-73.1); Platelet Count Result 209 k/mm3 (150-375); Red Blood Count 4.17 M/mm3 (4.2-5.4); Red Cell Distribution Width 12.8 % (11.5-14.5)
[2024-05-17 04:51] LABS: Blood Urea Nitrogen 23 mg/dL (7-17); Calcium 9.8 mg/dL (8.4-10.2); Chloride 84 mmol/L (98-107); Estimated CRCL calculation 57 ml/min; Estimated Glomerular Filt Rate > 60; Glucose 178 mg/dL (65-110); Platelet Estimate Adequate (Adequate); Potassium 4.9 mmol/L (3.4-5.0); Sodium 143 mmol/L (137-145)
[2024-05-17 04:52] LABS: Hypochromasia 1+; Ovalocytes 1+; Schistocytes None Seen; Stomatocytes 1+
[2024-05-17 04:53] LABS: Band Neutrophils Percent 0 % (0-6)
[2024-05-17 05:19] LABS: Carbon Dioxide > 40 mmol/L (22-30)
[2024-05-17] MEDS: methylPREDNISolone SOD SUCC 125 MG VIAL 60 MG IV PUSH ×3 (05:55→22:00)
[2024-05-17 06:47] LABS: Alveolar/Arterial O2 Gradient 45.3 mmHg; Base Excess ABG 19.1 mEq/l (+/-2.0); Device NON-INVASIVE VENT; Fractional Inspired Oxygen 32 %; HCO3 ABG 48.4 mEq/l (22.0-26.0); Oxygen Content ABG 16.3 %vol (16.0-22.0); Oxygen Saturation ABG 95.5 % (95.0-100.0); Oxyhemoglobin 95.9 % THb (90.0-100.0); PCO2 ABG 84.4 mmHg (35.0-45.0); PO2 ABG 84.1 mmHg (80.0-100.0); PO2 FiO2 Ratio Arterial Blood 2.63 %; Site Drawn RIGHT BRACHIAL; pH ABG 7.376 (7.350-7.450)
[2024-05-17 06:48] LABS: Non-Invasive Expiratory Pressure 6 CMH2O; Non-Invasive Inspiratory Pressure 12 CMH2O; Non-Invasive Vent Rate 18 /MIN
--- NOTE | 2024-05-17 07:17 | PCRCNOTE ---
Window of time for administration has passed. See next scheduled administration.
[2024-05-17] MEDS: IPRATROPIUM 0.5 MG/ALBUTEROL SULFATE 2.5 MG AMPUL.NEB 3 ML INHALATION ×3 (09:39→20:09)
[2024-05-17 12:05] LABS: Alveolar/Arterial O2 Gradient 61.8 mmHg; Base Excess ABG 16.8 mEq/l (+/-2.0); Fractional Inspired Oxygen 32 %; HCO3 ABG 43.6 mEq/l (22.0-26.0); Oxygen Content ABG 16.4 %vol (16.0-22.0); Oxygen Saturation ABG 97.1 % (95.0-100.0); Oxyhemoglobin 96.8 % THb (90.0-100.0); PO2 ABG 92.1 mmHg (80.0-100.0); PO2 FiO2 Ratio Arterial Blood 2.88 %; pH ABG 7.455 (7.350-7.450)
[2024-05-17] MEDS: ALPRAZolam (*CRX) 0.25 MG TABLET PO (12:05)
[2024-05-17] MEDS: GABAPENTIN 300 MG CAPSULE PO ×2 (12:05→18:06)
[2024-05-17] MEDS: LOSARTAN POTASSIUM 50 MG TABLET PO (12:05)
[2024-05-17] MEDS: ASPIRIN 325 MG ENTERIC TABLET PO (12:05)
[2024-05-17] MEDS: APIXABAN 5 MG TABLET PO ×2 (12:06→18:06)
[2024-05-17] MEDS: METOPROLOL SUCCINATE EXT REL 50 MG TABCR PO (12:06)
[2024-05-17 12:09] LABS: PCO2 ABG 63.5 mmHg (35.0-45.0)
[2024-05-17 12:10] LABS: Device NON-INVASIVE VENT; Site Drawn RIGHT BRACHIAL
[2024-05-17 12:12] LABS: Non-Invasive Expiratory Pressure 6 CMH2O; Non-Invasive Inspiratory Pressure 12 CMH2O; Non-Invasive Vent Rate 18 /MIN
[2024-05-17] MEDS: BUDESONIDE RESPULE NEB 0.5 MG/2 ML AMP INHALATION ×2 (12:22→20:08)
[2024-05-17] MEDS: VENLAFAXINE HCL 37.5 MG TABLET PO (15:16)
--- NOTE | 2024-05-17 17:45 | PM.IMPN ---
Progress Note: A&P Assessment and Plan (1) Acute hypercapnic respiratory failure: Code(s): J96.02 - Acute respiratory failure with hypercapnia Status: Acute Assessment and Plan: - CXR: Emphysema - EKG, initial: Sinus rhythm, possible right atrial enlargement, minimal Q-waves inferior leads, baseline artifact - Hgb 11.4 - viral PCR negative - ABG, initial: pH 7.325, pCO2 105.2, pO2 81.7, HCO3 53.6, O2 sat 94.2 % on 3 L. Repeat ABG showed CO2 of 85.8, will continue BiPAP. Recheck ABG in a.m.. BiPAP initiated due to significant elevation in CO2 levels. Will repeat ABG this evening. (2) COPD exacerbation: Code(s): J44.1 - Chronic obstructive pulmonary disease with (acute) exacerbation Status: Acute Assessment and Plan: - DuoNeb JIHAN - Solu-Medrol 60 IV Q8 - continue maintenance medications - start ceftriaxone and azithromycin on 05/16 for COPD exacerbation (3) Hypertension: Qualifiers: Hypertension type: primary hypertension Qualified Code(s): I10 - Essential (primary) hypertension Code(s): I10 - Essential (primary) hypertension Status: Acute Assessment and Plan: - chronic, currently 120/69. Initially soft. - hold home medications, resume when appropriate - monitor Plan Patient with shortness of breath secondary to hypercapnic respiratory failure secondary to emphysema, upon arrival patient pCO2 was was 105 patient was placed on BiPAP this morning patient's CO2 has improved to 63 however patient still quite anxious and somewhat combative will give the patient Xanax 0.25 mg p.o. p.r.n. as needed, patient is being treated with methylprednisone and DuoNeb as well as azithromycin and Rocephin to cover for atypical pneumonia. Will continue to monitor and taper Solu-Medrol as patient's symptoms improve. Diet: Heart healthy GI Prophylaxis: Not currently indicated DVT Prophylaxis: SCDs Lines: Peripheral Code Status: Full code Subjective Date/time seen: 05/17/24 17:45 Interval history: H&P-Narrative: 63 y/o F presents here with chest tightness and shortness of breath with PMH of peripheral artery disease, chronic respiratory failure, hypertension, depression, atrial fibrillation, coronary disease, and COPD. The patient presents here from home for further evaluation of shortness of breath, cough, and chest tightness. She reports onset of of a nonproductive cough within the last 24 hours. Now accompanied by wheezing, tightness in her chest, and shortness of breath. She denies associated chest pain, nausea, vomiting, diarrhea, fever, chills, body aches. Chest tightness/shortness of breath now alleviated with BiPAP. She has a history of COPD and chronic respiratory failure, on 3L nasal cannula at rest. Patient with shortness of breath secondary to hypercapnic respiratory failure secondary to emphysema, upon arrival patient pCO2 was was 105 patient was placed on BiPAP this morning patient's CO2 has improved to 63 however patient still quite anxious and somewhat combative will give the patient Xanax 0.25 mg p.o. p.r.n. as needed, patient is being treated with methylprednisone and DuoNeb as well as azithromycin and Rocephin to cover for atypical pneumonia. Will continue to monitor and taper Solu-Medrol as patient's symptoms improve. Review of Systems Review of Systems: All systems reviewed & are unremarkable except as noted in HPI and below Exam Narrative: Appears chronically ill older than her age Patient is comfortable, NAD HEENT: eyes are clear and none icteric LUNGS: Bilateral poor air entry with rhonchi and wheezing HEART: RR S1S2 ABD: BS+, Soft and nontender Lower extremities: no edema SKIN: nonjaundiced Neuro: grossly intact. Objective Data Vital Signs Vital Signs: Vital Signs - 24 hr 05/16/24 17:51 05/16/24 17:58 05/16/24 17:58 Temperature Pulse Rate 104 H 105 H Respiratory Rate 20 18 Blood Pressure Pulse Oximetry 100 100 Oxygen Delivery BiPAP BiPAP Oxygen Flow Rate Fraction of Inspired Oxygen 32 05/16/24 18:00 05/16/24 18:01 05/16/24 19:32 Temperature Pulse Rate 105 H 102 H 118 H Respiratory Rate 24 H 17 Blood Pressure 120/69 Pulse Oximetry Oxygen Delivery Oxygen Flow Rate Fraction of Inspired Oxygen 05/16/24 19:32 05/16/24 20:10 05/16/24 21:41 Temperature Pulse Rate 118 H 98 65 Respiratory Rate 18 23 H 18 Blood Pressure 129/83 128/72 Pulse Oximetry 99 98 95 Oxygen Delivery BiPAP Oxygen Flow Rate Fraction of Inspired Oxygen 05/16/24 21:56 05/16/24 22:55 05/16/24 23:00 Temperature 36.4 C Pulse Rate 110 H 98 Respiratory Rate 21 H 21 H 22 H Blood Pressure 102/73 Pulse Oximetry 95 99 Oxygen Delivery BiPAP BiPAP Oxygen Flow Rate Fraction of Inspired Oxygen 05/16/24 23:30 05/16/24 23:37 05/17/24 00:00 Temperature 36.8 C Pulse Rate 97 97 Respiratory Rate 18 Blood Pressure 142/83 H Pulse Oximetry 95 100 Oxygen Delivery BiPAP Oxygen Flow Rate 18 Fraction of Inspired Oxygen 32 05/17/24 02:00 05/17/24 02:35 05/17/24 03:42 Temperature 37.0 C Pulse Rate 102 H 97 96 Respiratory Rate 22 H 18 Blood Pressure 140/72 Pulse Oximetry 96 96 Oxygen Delivery BiPAP Oxygen Flow Rate Fraction of Inspired Oxygen 05/17/24 04:00 05/17/24 04:00 05/17/24 06:00 Temperature Pulse Rate 97 98 Respiratory Rate Blood Pressure Pulse Oximetry 93 Oxygen Delivery BiPAP Oxygen Flow Rate 18 Fraction of Inspired Oxygen 32 05/17/24 06:05 05/17/24 08:00 05/17/24 08:00 Temperature Pulse Rate 95 109 H Respiratory Rate 21 H Blood Pressure Pulse Oximetry 96 95 Oxygen Delivery BiPAP BiPAP Oxygen Flow Rate 18 Fraction of Inspired Oxygen 32 05/17/24 08:00 05/17/24 09:44 05/17/24 09:44 Temperature 36.3 C L Pulse Rate 110 H 89 Respiratory Rate 28 H 20 Blood Pressure 134/81 Pulse Oximetry 100 99 Oxygen Delivery BiPAP Oxygen Flow Rate Fraction of Inspired Oxygen 32 05/17/24 09:45 05/17/24 10:00 05/17/24 12:00 Temperature 37.1 C Pulse Rate 89 118 H 139 H Respiratory Rate 21 H 28 H Blood Pressure 144/54 H Pulse Oximetry 95 100 Oxygen Delivery BiPAP Oxygen Flow Rate Fraction of Inspired Oxygen 05/17/24 12:00 05/17/24 12:00 05/17/24 12:24 Temperature Pulse Rate 131 H 110 H 127 H Respiratory Rate 20 25 H Blood Pressure Pulse Oximetry 97 Oxygen Delivery Nasal Cannula Oxygen Flow Rate 3 Fraction of Inspired Oxygen 05/17/24 12:26 05/17/24 12:35 05/17/24 14:00 Temperature Pulse Rate 104 H 108 H 118 H Respiratory Rate 28 H 25 H Blood Pressure Pulse Oximetry 100 Oxygen Delivery BiPAP Oxygen Flow Rate Fraction of Inspired Oxygen 05/17/24 14:08 05/17/24 14:09 05/17/24 14:20 Temperature Pulse Rate 117 H 117 H 120 H Respiratory Rate 27 H 27 H 20 Blood Pressure Pulse Oximetry 96 Oxygen Delivery BiPAP Oxygen Flow Rate Fraction of Inspired Oxygen 05/17/24 15:04 05/17/24 16:00 Temperature 37.0 C Pulse Rate 110 H 127 H Respiratory Rate 20 30 H Blood Pressure 99/63 L Pulse Oximetry 97 100 Oxygen Delivery Nasal Cannula Oxygen Flow Rate 3 Fraction of Inspired Oxygen Intake/Output Intake/Output: Intake & Output 05/14/24 05/15/24 05/16/24 05/17/24 23:59 23:59 23:59 23:59 Intake Total 50 Output Total 75 Balance -25 Meds/Results Medications: Active Medications Generic Name Dose Route Start Last Admin Trade Name Freq PRN Reason Stop Dose Admin Albuterol 2 puff 05/17/24 09:52 Albuterol Sulfate (*Sp) Aerosol 1 Puff INHALATION Q6H PRN Shortness Of Breath Albuterol/Ipratropium 3 ml 05/16/24 20:00 05/17/24 14:05 Ipratropium 0.5 Mg/Albuterol Sulfate 2.5 Mg Ampul.Neb 3 Ml INHALATION 3 ml Q6HRT JIHAN Administration Apixaban 5 mg 05/17/24 10:20 05/17/24 12:06 Apixaban 5 Mg Tablet PO 5 mg BID JIHAN Administration Aspirin 325 mg 05/17/24 10:20 05/17/24 12:05 Aspirin 325 Mg Enteric Tablet PO 325 mg QAM JIHAN Administration Atorvastatin Calcium 80 mg 05/17/24 21:00 Atorvastatin 40 Mg Tablet PO HS JIHAN Azithromycin 0 mg 05/17/24 09:55 Azithromycin 250 Mg Tablet PO .COMPLEX JIHAN Budesonide 0.5 mg 05/17/24 10:25 05/17/24 12:22 Budesonide Respule Neb 0.5 Mg/2 Ml Amp INHALATION 0.5 mg Q12HRT JIHAN Administration Fluticasone/Umeclidinium/Vilanterol 1 puff 05/17/24 10:25 05/17/24 12:18 Fluticasone/Umeclidin/Vilanter 100-62.5-25 Mcg Ellipta INHALATION Not Given DAILYRT JIHAN Gabapentin 300 mg 05/17/24 10:05/17/24 15:09 Gabapentin 300 Mg Capsule PO Not Given TID JIHAN Ceftriaxone Sodium 1 gm in 50 mls @ 100 mls/hr 05/16/24 19:00 05/16/24 22:06 Rocephin 1 Gm/Ns 50 Ml IVPB Infused Q24H JIHAN Infusion Azithromycin 500 mg in 250 mls @ 250 mls/hr 05/16/24 20:00 05/16/24 22:04 Zithromax IVPB 250 mls/hr Q24H JIHAN Administration Losartan Potassium 50 mg 05/17/24 10:25 05/17/24 12:05 Losartan Potassium 50 Mg Tablet PO 50 mg DAILY JIHAN Administration Methylprednisolone Sodium Succinate 60 mg 05/16/24 22:00 05/17/24 15:15 Methylprednisolone Sod Succ 125 Mg Vial IV PUSH 60 mg Q8HR JIHAN Administration Metoprolol Succinate 50 mg 05/17/24 10:05/17/24 12:06 Metoprolol Succinate Ext Rel 50 Mg Tabcr PO 50 mg DAILY JIHAN Administration Miscellaneous Information 0 each 05/17/24 00:01 Azithromycin - Zpack Filled On 05/12 - Should Be Done With 5 Day Course Now - Please Clarif XX 06/16/24 00:00 CLARIFY JIHAN Miscellaneous Information 0 each 05/17/24 00:01 Budesonide Is A Scheduled Inhaled Corticosteroid, And Trelegy Is Scheduled And Contains An XX 06/16/24 00:00 CLARIFY JIHAN Ondansetron HCl 4 mg 05/16/24 17:42 Ondansetron Inj 4 Mg/2 Ml Vial IV PUSH Q4H PRN Nausea Venlafaxine HCl 37.5 mg 05/17/24 10:05/17/24 15:16 Venlafaxine Hcl 37.5 Mg Tablet PO 37.5 mg BID JIHAN Administration Radiology Results: ITS Impressions Chest X-Ray 05/16/24 14:01 IMPRESSION: 1. Emphysema. Labs Labs: Laboratory Results - last 24 hr 05/16/24 05/16/24 05/17/24 20:34 21:51 03:54 WBC 7.0 RBC 4.17 L Hgb 12.2 Hct 41.8 MCV 100.2 H MCH 29.3 MCHC 29.2 L RDW 12.8 Plt Count 209 MPV 9.8 Immature Gran % (Auto) 0.4 Neut % (Auto) 85.3 H Lymph % (Auto) 12.8 L [place] % (Auto) 1.1 L Eos % (Auto) 0.1 Baso % (Auto) 0.3 Lymph # (Auto) 0.90 [place] # (Auto) 0.1 Eos # (Auto) 0.0 Baso # (Auto) 0.0 Abs Immat Gran (auto) 0.03 Absolute Neuts (auto) 6.0 Absolute Nucleated RBC 0.000 Band Neutrophils % 0 Nucleated RBC % 0.0 Platelet Estimate Adequate Hypochromasia 1+ Ovalocytes 1+ Stomatocytes 1+ Schistocytes None seen Puncture Site Right brachial ABG pH 7.385 ABG pCO2 85.8 H* ABG pO2 78.8 L ABG PO2/FiO2 Ratio 2.46 ABG HCO3 50.2 H ABG O2 Saturation 94.7 L ABG O2 Content 15.9 L ABG Base Excess 20.9 A-a Gradient 49.0 Oxyhemoglobin 95.2 Total Hemoglobin 11.8 L O2 Delivery Device Non-invasive vent O2 Liters/Min Not Reportable Vent Rate 18 FiO2 32 Expiratory Pressure 6 Inspiratory Pressure 12 Sodium 143 Potassium 4.9 Chloride 84 L Carbon Dioxide > 40 H Anion Gap BUN 23 H Creatinine 0.58 L Estim Creat Clear Calc 57 Estimated GFR > 60 Glucose 178 H Calcium 9.8 Troponin I < 0.012 05/17/24 05/17/24 06:32 12:01 WBC RBC Hgb Hct MCV MCH MCHC RDW Plt Count MPV Immature Gran % (Auto) Neut % (Auto) Lymph % (Auto) [place] % (Auto) Eos % (Auto) Baso % (Auto) Lymph # (Auto) [place] # (Auto) Eos # (Auto) Baso # (Auto) Abs Immat Gran (auto) Absolute Neuts (auto) Absolute Nucleated RBC Band Neutrophils % Nucleated RBC % Platelet Estimate Hypochromasia Ovalocytes Stomatocytes Schistocytes Puncture Site Right brachial Right brachial ABG pH 7.376 7.455 H ABG pCO2 84.4 H* 63.5 H* ABG pO2 84.1 92.1 ABG PO2/FiO2 Ratio 2.63 2.88 ABG HCO3 48.4 H 43.6 H ABG O2 Saturation 95.5 97.1 ABG O2 Content 16.3 16.4 ABG Base Excess 19.1 16.8 A-a Gradient 45.3 61.8 Oxyhemoglobin 95.9 96.8 Total Hemoglobin 12.0 12.0 O2 Delivery Device Non-invasive vent Non-invasive vent O2 Liters/Min Not Reportable Not Reportable Vent Rate 18 18 FiO2 32 32 Expiratory Pressure 6 6 Inspiratory Pressure 12 12 Sodium Potassium Chloride Carbon Dioxide Anion Gap BUN Creatinine Estim Creat Clear Calc Estimated GFR Glucose Calcium Troponin I Quality VTE Prophylaxis VTE prophylaxis: mechanical ordered
[2024-05-17] MEDS: ATORVASTATIN 40 MG TABLET 80 MG PO (21:56)
[2024-05-17] MEDS: AZITHROMYCIN 500 MG/NS 250 ML 500 MG/250 ML BAG 250 MG IVPB (22:10)
[2024-05-18] VITALS (19 sets, daily range): BP systolic 111–137; BP diastolic 67–74; PULSE 95–119; RESP 16–30; TEMP 36.4–37.1; O2SAT 90–100
[2024-05-18] MEDS: IPRATROPIUM 0.5 MG/ALBUTEROL SULFATE 2.5 MG AMPUL.NEB 3 ML INHALATION ×3 (01:50→13:37)
[2024-05-18 05:02] LABS: Hematocrit 35.5 % (37.0-47.0); Hemoglobin 10.9 g/dL (12.0-15.0); Mean Corpuscular HGB Conc 30.7 g/dl (32-36); Mean Corpuscular Hemoglobin 29.9 pg (26-34); Mean Corpuscular Volume 97.3 fl (80-100); Mean Platelet Volume 10.4 fl (7.4-10.4); Platelet Count Result 204 k/mm3 (150-375); Red Blood Count 3.65 M/mm3 (4.2-5.4); Red Cell Distribution Width 13.3 % (11.5-14.5); White Blood Count 7.4 K/mm3 (4.5-10.0)
[2024-05-18 05:15] LABS: Blood Urea Nitrogen 33 mg/dL (7-17); Calcium 9.3 mg/dL (8.4-10.2); Chloride 87 mmol/L (98-107); Estimated CRCL calculation 57 ml/min; Estimated Glomerular Filt Rate > 60; Glucose 182 mg/dL (65-110); Potassium 4.3 mmol/L (3.4-5.0); Sodium 142 mmol/L (137-145)
[2024-05-18] MEDS: methylPREDNISolone SOD SUCC 125 MG VIAL 60 MG IV PUSH ×2 (06:14→13:52)
[2024-05-18 06:15] LABS: Carbon Dioxide > 40 mmol/L (22-30)
[2024-05-18] MEDS: BUDESONIDE RESPULE NEB 0.5 MG/2 ML AMP INHALATION (07:22)
[2024-05-18] MEDS: APIXABAN 5 MG TABLET PO (08:45)
[2024-05-18] MEDS: METOPROLOL SUCCINATE EXT REL 50 MG TABCR PO (08:45)
[2024-05-18] MEDS: GABAPENTIN 300 MG CAPSULE PO ×2 (08:45→12:11)
[2024-05-18] MEDS: ASPIRIN 325 MG ENTERIC TABLET PO (08:45)
[2024-05-18] MEDS: VENLAFAXINE HCL 37.5 MG TABLET PO (08:46)
[2024-05-18] MEDS: LOSARTAN POTASSIUM 50 MG TABLET PO (08:46)
--- NOTE | 2024-05-18 15:25 | PM.DS ---
DS: Admitting Diagnosis Discharge Date 05/18/24 Admitting Diagnosis Chest Tightness, SOB DS: Discharge Diagnosis Discharge Diagnosis (1) Acute hypercapnic respiratory failure: Code(s): J96.02 - Acute respiratory failure with hypercapnia Status: Acute (2) COPD exacerbation: Code(s): J44.1 - Chronic obstructive pulmonary disease with (acute) exacerbation Status: Acute (3) Hypertension: Qualifiers: Hypertension type: primary hypertension Qualified Code(s): I10 - Essential (primary) hypertension Code(s): I10 - Essential (primary) hypertension Status: Acute DS: Summary Hospital Course Hospital Course: Patient with shortness of breath secondary to hypercapnic respiratory failure secondary to emphysema, upon arrival patient pCO2 was was 105 patient was placed on BiPAP this morning patient's CO2 has improved to 63 however patient still quite anxious and somewhat combative will give the patient Xanax 0.25 mg p.o. p.r.n. as needed, patient is being treated with methylprednisone and DuoNeb as well as azithromycin and Rocephin to cover for atypical pneumonia. Will continue to monitor and taper Solu-Medrol as patient's symptoms improve. Today patient's symptoms have improved clinically stable will discharge the patient tapering doses of prednisone, patient to follow-up with her primary care doctor. Time Spent with Patient Time attestation: Total time spent providing and/or coordinating discharge services: DS: Data Data Completed and Pending Labs on day of discharge: Labs from last 24 hours 05/18/24 04:23 WBC 7.4 RBC 3.65 L Hgb 10.9 L Hct 35.5 L MCV 97.3 MCH 29.9 MCHC 30.7 L RDW 13.3 Plt Count 204 MPV 10.4 Sodium 142 Potassium 4.3 Chloride 87 L Carbon Dioxide > 40 H Anion Gap BUN 33 H D Creatinine 0.58 L Estim Creat Clear Calc 57 Estimated GFR > 60 Glucose 182 H Calcium 9.3 Magnesium 2.0 Preliminary micro results at discharge 05/16/24 20:35 Blood Culture - Preliminary Blood 05/16/24 20:34 Blood Culture - Preliminary Blood Discharge Plan Discharge Attending physician on discharge: Samuel Cespedes Consulting providers: Greg Vargas; Diana Crouch; Etienne Gage V. Discharging Clinician: Flavio Greco Patient Disposition: Home, Self-Care Activity: as tolerated Diet: regular Discharge Instructions: patient to follow-up with her excel vba developer and primary care provider as soon as possible, patient is instructed if any symptoms worsen to go to nearest emergency department. Patient Instructions: Antibiotic Form Patient Language: Vietnamese Stand Alone Forms: General Discharge Information Follow-up/Referrals: UNKNOWN,DOCTOR [Primary Care Provider] - Discharge Medications: New prednisone 10 mg tablet 10 mg PO DAILY Qty: 42 0RF Rx Instructions: 6Tx2d, 5Tx2d, 4Tx2d, 3Tx2d, 2Tx2d, 1Tx2d Continued metoprolol succinate 50 mg tablet extended release 24 hr 50 mg PO DAILY venlafaxine 37.5 mg tablet 37.5 mg PO BID gabapentin 300 mg capsule 300 mg PO TID budesonide 0.5 mg/2 mL suspension for nebulization 0.5 mg inhalation BID albuterol sulfate 90 mcg/actuation HFA aerosol inhaler 2 puff INHALATION Q6H PRN (Reason: sob) Eliquis 5 mg tablet 5 mg PO BID losartan 50 mg tablet 50 mg PO DAILY atorvastatin 80 mg tablet 80 mg PO HS aspirin 325 mg Tablet,Delayed Release (Dr/Ec) 325 mg PO QAM 30 Days Qty: 30 0RF Trelegy Ellipta 100-62.5-25 mcg blister with device 1 inh inhalation DAILY 30 Days Qty: 60 0RF azithromycin 250 mg tablet See Rx Instructions PO .COMPLEX Patient Comments: had not started yet. picked up on 05/12/24 Rx Instructions: orally 2 tabs PO x1 day , 1 tab 1x day for 4 days; Date of admission: 05/17/24 10:38 Primary Care Provider: UNKNOWN,DOCTOR Admitting Provider: Samuel Cespedes Attending physician on admission: Flavio Greco Condition: Stable
--- NOTE | 2024-05-18 17:00 | PC.NURSE ---
Patient's son at bedside.
--- NOTE | 2024-05-18 17:30 | PC.NURSE ---
Dr. Greco at bedside discussing discharge plans with patient and son, Felecia. Discharge forms signed. Son has to bring patient's oxygen tank from home. snowblower mechanic aware of discharge delay.
--- NOTE | 2024-05-20 07:06 | P.CDI_ITS ---
CDI Query Clarification Request BMI: 15.8 Nutritional Diagnostic Statement: Please refer to the comprehensive nutrition assessment for further information. If you agree with diagnosis of Moderate protein calorie malnutrition related to inadequate energy intake as evidenced by pt report of poor po intake greater than 1 month, -10% wt loss x 1 month, and NFPE findings for moderate subcutaneous fat loss (cheeks) and moderate muscle wasting (voodoo, clavicle). Please specify severity if known: * Mild * Moderate * Severe * Other/Unknown <Shwetha Donato RN - Last Filed: 05/20/24 07:07> Clarified Diagnosis Clarified Diagnosis: I agree with diagnosis of Moderate protein calorie malnutrition related to inadequate energy intake as evidenced by pt report of poor po intake greater than 1 month, -10% wt loss x 1 month, and NFPE findings for moderate subcutaneous fat loss (cheeks) and moderate muscle wasting (voodoo, clavicle <Flavio Greco MD - Last Filed: 06/13/24 11:14>
== END 2024-05-18 18:10 | disposition home or self-care (01) | DRG 140 ==
LOC: ANHED 17:23 → ANHIMU 18:09
PROVIDERS: Emergency Medicine; Student in an Organized Health Care Education/Training Program; Admitting Provider General Practice; Emergency Provider Emergency Medicine; Visit Provider Family Medicine
DX: J44.1 Chronic obstructive pulmonary disease with (acute) exacerbation (principal); J96.22 Acute and chronic respiratory failure with hypercapnia; E44.0 Moderate protein-calorie malnutrition; I10 Essential (primary) hypertension; I48.20 Chronic atrial fibrillation, unspecified; I25.10 Atherosclerotic heart disease of native coronary artery without angina pectoris; I73.9 Peripheral vascular disease, unspecified; Z20.822 Contact with and (suspected) exposure to COVID-19; F32.A Depression, unspecified; Z68.1 Body mass index [BMI] 19.9 or less, adult; Z99.81 Dependence on supplemental oxygen; Z79.01 Long term (current) use of anticoagulants; Z72.0 Tobacco use
CPT/HCPCS: 36415; 36600; 71045; 80048; 80053; 81003; 82805; 83605; 83690; 83735; 83880; 84145; 84484; 85018; 85025; 85027; 85610; 85730; 87040; 87637; 93005; 94002; 94003; 94640; 96365; 96366; 96367; 96375; 99285; A9270; G0378; G0379; J0456; J0696; J2919

== ENCOUNTER 2024-10-14 11:56 | Inpatient (IN) | payer OTHER, SELFPAY ==
[2024-10-14] VITALS (15 sets, daily range): BP systolic 119–158; BP diastolic 67–82; PULSE 108–126; RESP 19–32; TEMP 36.3–36.9; O2SAT 95–100; BMI 15.5
--- NOTE | ~2024-10-14 | CT_ITS ---
EXAMINATION: CT brain wo con DATE: 10/16/2024 14:00 INDICATION: Anisocoria TECHNIQUE: Computed tomography (CT) of the head was performed without intravenous contrast. Sagittal and coronal reconstructions were performed. The mA was adjusted according to patient size. Iterative reconstruction technique was employed. The dose-length product was 605.33 mGy-cm. COMPARISON: None FINDINGS: No acute intracranial hemorrhage, acute infarction or abnormal extra axial fluid collection. There is mild scattered white matter hypoattenuation consistent with chronic small vessel ischemic disease. Ventricles are normal and symmetric. No mass/mass effect. The orbits, paranasal sinuses and mastoid a ir cells are normal. IMPRESSION: 1. Mild scattered white matter hypoattenuation consistent with chronic small vessel ischemic disease. Reviewed, dictated and finalized at location A. IMPRESSION: 1. Mild scattered white matter hypoattenuation consistent with chronic small ve ssel ischemic disease.
--- NOTE | ~2024-10-14 | XR_ITS ---
XR chest 2V 10/14/2024 12:47 Indication: Shortness of breath and chest pain Procedure: 2 view chest Comparison: Comparison to multiple prior studies sequentially, with oldest reviewed study dated 10/2023. Findings: Heart size normal. No focal air space disease, pulmonary edema, pleural effusion or suspect ed pneumothorax. There are coarse bilateral breast calcifications. These appear chronic. The lungs ar e hyperinflated which is consistent with, but not diagnostic of chronic obstructive pulmonary disease . Impression: 1: No acute cardiopulmonary disease. 2: Coarse bilateral breast calcifications. Recommend correlation with diagnostic bilateral mammogram and possible additional ultrasound. Reviewed, dictated and finalized at location B. Impression: 1: No acute cardiopulmonary disease. 2: Coarse bilateral breast calcifications. Recommend correlation with diagnost ic bilateral mammogram and possible additional ultrasound.
--- NOTE | 2024-10-14 12:02 | ECG_ITS ---
Test Date: 2024-10-14 12:02:49 Measurements Intervals [place] Rate: 107 P: 81 MS: 129 QRS: 86 QRSD: 88 T: 45 QT: 317 QTc: 425 Interpretive Statements SINUS TACHYCARDIA BIATRIAL ENLARGEMENT Electronically Signed On 10-15-2024 16:03:27 CDT by Alexis Osman D.O
[2024-10-14 12:13] LABS: Hematocrit 40.2 % (37.0-47.0); Hemoglobin 11.8 g/dL (12.0-15.0); Immature Granulocyte Percent A 0.5 % (0-0.5); Lymphocytes Absolute Auto 1.17 K/mm3 (0.9-3.2); Mean Corpuscular HGB Conc 29.4 g/dl (32-36); Mean Corpuscular Hemoglobin 29.1 pg (26-34); Mean Corpuscular Volume 99.0 fl (80-100); Nucleated Red Blood Cells Absolute Auto 0.000 K/mm3 (0.0-0.012); Nucleated Red Blood Cells Perc 0.0 % (0.0-0.2); Platelet Count Result 190 k/mm3 (150-375); Red Blood Count 4.06 M/mm3 (4.2-5.4); White Blood Count 6.4 K/mm3 (4.5-10.0)
--- OUTSIDE RECORDS SUMMARY | 2024-10-14 12:16 | XMS_ITS | Clinical Summary ---
Author Organization [facility] Address [address] [place] [address] Care Team Providers Care Administrative Support Manager Name Role Phone Genesis Perez MD PhD Unavailable [phone] Yang Rosales MD Primary Care Provider Allergies [...] enteric coated tabletIndicati ons:Arterial occlusion, lower extremity Take 1 tablet (81 mg total) by mouth daily 30 tablet 11 12/10/19 21 Active Additional Information Patient not taking.Reported on 09/24/2024 ibuprofen (ADVIL,MOTRIN) 400 mg tablet Take 1 tablet (400 mg total) by mouth every 6 (six) hours as needed for pain 120 tablet 12/09/19 21 Active polyethylene glycol (MIRALAX) 17 gram packetIndicati ons:constipati on Take 1 packet (17 g total) by mouth daily as needed for constipation 12/09/19 Active senna-docusate (PERICOLACE) 8.6-50 mg Take 1-2 tablets by mouth 2 (two) times a day 40 tablet 12/09/19 Active Additional Information Patient not taking.Reported on 09/24/2024 cyclobenzaprin e (FLEXERIL) 10 mg tablet cyclobenzaprine 10 mg tablet TAKE ONE TABLET BY MOUTH THREE TIMES DAILY NEEDED Active budesonide-for moteroL (SYMBICORT) 160-4.5 mcg/actuation inhaler Symbicort 160 mcg-4.5 mcg/actuation HFA aerosol inhaler Active gabapentin (NEURONTIN) 300 mg capsule 06/02/19 Active metoprolol tartrate (LOPRESSOR) 50 mg immediate release tablet 07/09/19 22 Active Eliquis 5 mg tablet Take 1 tablet (5 mg total) by mouth 2 (two) times a day Active losartan (COZAAR) 50 mg tablet Take 1 tablet (50 mg total) by mouth daily Active metoprolol XL (TOPROL-XL) 50 mg extended release tablet Take 1 tablet (50 mg total) by mouth daily 07/01/19 25 Active tiotropium bromide (SPIRIVA RESPIMAT) 2.5 mcg/actuation inhaler Inhale 2 puffs daily 08/02/19 25 Active Active Problems Problem Noted Date Diagnosed Date Wound of left groin 12/15/2020 Wound of right groin 12/15/2020 Leukocytosis 12/07/2020 Assessment & Plan (12/07/2020 4:27 PM CDT): WBC count trending upward 14.4 overnight. Afebrile - UA unremarkable - IS/ turn, cough, deep breathe - CXR 12/05 unremarkable. Consider repeat CXR - Follow CBC HFrEF (heart failure with reduced ejection fract ion) 11/27/2020 Assessment & Plan (12/05/2020 4:20 PM [...] - Enalapril on hold perioperatively Atherosclerosis of nondalton artery of extremity Aortoiliac occlusive disease 01/20/2015 Encounters Date Type Department Care Team Description 09/30/2024 Telephone [facility] Neurology [facility] [address] [place] [id number] Mary Joe NP MRI location ([facility]) 09/24/2024 2:00 PM CDT Office Visit [facility] Neurology [facility] [address] [place] [address] Mary Joe NP Memory loss (Primary Dx) from Last 3 Months Social History Tobacco Use Types Packs/Day Years [...] on file 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 Gender Identity Not on file Sexual Orientation Not on file Obstetrics History Last Filed Vital Signs Vital Sign Reading Time Taken Comments Blood Pressure 90/58 09/24/2024 2:14 PM CDT Pulse 98 09/24/2024 2:14 PM CDT Temperature 36.6 C (97.8 F) 12/22/2020 2:20 PM CDT Respiratory Rate 18 12/08/2020 8:00 AM CDT Oxygen Saturation 97% 09/24/2024 2:14 PM CDT Inhaled Oxygen Concentration - - Weight 56.2 kg (124 lb) 08/04/2021 11:50 AM CDT Height 172.7 cm (5' 8) 12/22/2020 2:20 PM CDT Body Mass Index 18.85 12/22/2020 2:20 PM CDT Plan of Treatment Health Maintenance Due Date Last Done Comments Breast Cancer Screening-Mammogram 1960 Cervical Cancer Screening 1960 Colon Cancer Screening-Colonoscopy 1960 Depression Screening 1960 Hepatitis C Screening 1960 DTaP/Tdap/Td Vaccine (1 - Tdap) 08/12/1971 Hepatitis B Screening 1978 Regular Well Visit/Exam 18-64 1978 Zoster Vaccine (1 of 2) 2010 Influenza Vaccine (#1) 2024 03/07/2018, 2014 Pneumococcal vaccine <65 (2 of 2 - PCV) 07/31/2025 0 07/31/2024 Medical Devices Implanted Type Area Buggy Runner Device Identifier Shelf Expiration Date Model / Serial / Lot [employer] [id number] Gelsoft Plus Vascutek 12/6mm 45cm Main Leg Bore Reduced - [id number] - [id number] Implanted:Qty : 1 on 12/01/2020 by Genesis Perez MD PhD at [facility] Graft N/A: Aorta [employer] [id number] 12/17/2022 [id number] / [id number] Formerly [facility] [id number] [id number] Insurance [facility] Advance Directives For more information, please contact: [phone] * Full Code (Latest Code Status on File) Date Activated Date Inactivated Comments 11/25/2020 6:38 AM 12/08/2020 7:39 PM Care Teams Administrative Support Manager Relationship Specialty Start Date End Date Yang Rosales MD [address] [address] PCP - General Gastroenterology 01/05/21 Genesis Perez MD PhD [address] [facility] [id number] [place] [address] Surgeon Vascular Surgery 12/08/20
--- OUTSIDE RECORDS SUMMARY | 2024-10-14 12:16 | XMS_ITS | Referral Summary ---
Author Organization [facility] Address [address] [place] [address] Care Team Providers Care Apple Turner Name Role Phone Genesis Perez MD PhD Unavailable [phone] Yang Rosales MD Primary Care Provider Encounters Date Type Department Care Team Description 09/30/2024 Telephone [facility] [address] [place] [address] Mary Joe NP MRI location ([facility]) 09/24/2024 2:00 PM CDT Office Visit [facility] [address] [place] [address] [address] [place] [address] Mary Joe NP Memory loss (Primary Dx) from Last 3 Months Allergies Active Allergy Reactions Criticality Noted Date [...] by mouth daily 30 tablet 11 12/10/19 Active Additional Information Patient not taking.Reported on 09/24/2024 ibuprofen (ADVIL,MOTRIN) 400 mg tablet Take 1 tablet (400 mg total) by mouth every 6 (six) hours as needed for pain 120 tablet 12/09/19 Active polyethylene glycol (MIRALAX) 17 gram packetIndicati [...] 50 mg immediate release tablet 07/09/19 Active Eliquis 5 mg tablet Take 1 tablet (5 mg total) by mouth 2 (two) times a day Active losartan (COZAAR) 50 mg tablet Take 1 tablet (50 mg total) by mouth daily Active metoprolol XL (TOPROL-XL) 50 mg extended release tablet Take 1 tablet (50 mg total) by mouth daily 07/01/19 Active tiotropium bromide (SPIRIVA RESPIMAT) 2.5 mcg/actuation inhaler Inhale 2 puffs daily 08/02/19 Active Active Problems Problem Noted Date Diagnosed [...] - Enalapril on hold perioperatively Atherosclerosis of zuni artery of extremity Aortoiliac occlusive disease 01/20/2015 Social History Tobacco Use Types Packs/Day Years [...] on file Legal Sex Female 11:40 AM [employer] Gender Identity Not on file Sexual Orientation [...] on file Medical Devices Implanted Type Area 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 Graft N/A: Aorta [employer] [id number] 12/17/2022 [id number] / [id number] / [id number] Insurance [facility] Advance Directives For more information, please contact: [phone] * Full Code (Latest Code Status on File) Date Activated Date Inactivated Comments 11/25/2020 6:38 AM 12/08/2020 7:39 PM Care Teams Apple Turner Relationship Specialty Start Date End Date Yang Rosales MD [address] [address] PCP - General Gastroenterology 01/05/21 Genesis Perez MD PhD [address] [facility] [id number] [place] [address] Surgeon Vascular Surgery 12/08/20
--- OUTSIDE RECORDS SUMMARY | 2024-10-14 12:17 | XMS_ITS | Data Portability ---
Author Organization [facility] Phillip [facility] Address [address] [place] [address] Assessment No assessment recorded. Plan of Treatment Reminders Order Date Submit Date Provider Last Modified By Organization Details Last Modified Time Details Appointments ANY 30 2024 03:30P M Piyush Cook MD Not available Not available Not available Lab None recorded. Referral neurologi st referral 2024 025 [facility] At [address], [address], [place], [address], 07/22/2024 04:06:09 behaviora health referral 2023 024 АННА [employer], [address] [place], [address], 03/08/2024 15:27:46 home health referral [address] [facility] - [address], [address], [place], [address], 09/05/2023 08:35:45 Procedures None recorded. Surgeries None recorded. Imaging None recorded. Medication Orders Boost Plus 0.06 gram-1.5 kcal/mL oral liquid 2024 025 [facility], [address] [place], [address], 06/11/2024 18:10:34 Boost High Protein 0.06 gram-1 kcal/mL oral liquid [address] [facility][id number], [address], [place], [place], [id number], 06/07/2024 10:49:31 loratadin e 10 mg tablet 2023 024 [facility] #84599, [address], [place], [place], [id number], 08/24/2023 17:38:00 Symbicort 160 mcg-4.5 mcg/actua tion HFA aerosol inhaler 2023 024 [facility]09053, [address], [id number], 08/24/2023 17:38:02 atorvasta tin 80 mg tablet 2023 024 [facility] [address]38375, [address], [id number], 08/24/2023 17:38:04 Boost High Protein 0.06 gram-1 kcal/mL oral liquid 2023 024 [facility] [address]15837, [address], [id number], 08/24/2023 17:37:58 albuterol sulfate HFA 90 mcg/actua tion aerosol inhaler 2023 024 [facility]84410, [address], [id number], 08/24/2023 17:38:03 ipratropi um 0.5 mg-albute rol 3 mg (2.5 mg base)/3 mL nebulizat ion soln 2023 024 [facility] [address]01088, [address], [id number], 08/24/2023 17:38:03 Eliquis 5 mg tablet 2023 024 [facility] #93496, [address], [place], [place], [id number], 08/24/2023 17:38:01 losartan 50 mg tablet 2023 024 [facility] #26216, [address], [place], [place], [id number], 08/24/2023 17:38:03 metoprolo l succinate ER 50 mg tablet,ex tended release 24 hr 2023 024 [facility] #78470, [address], [place], [place], [id number], 08/24/2023 17:38:02 venlafaxi ne 37.5 mg tablet 2023 024 [facility] #40881, [address], [place], [place], [id number], 08/24/2023 17:38:02 gabapenti n 300 mg capsule 2023 024 [facility] [address]89241, [address], [id number], 08/24/2023 17:38:00 Eliquis 5 mg tablet [address] [facility]73993, [address], [id number], 02/22/2023 16:41:27 Boost High Protein 0.06 gram-1 kcal/mL oral liquid 2022 023 [facility]51621, [address], [id number], 02/22/2023 16:59:46 hydrocort isone 0.5 % topical cream 2022 024 [facility] #47715, [address] [place], [place], [id number], 08/24/2023 16:46:36 loratadin e 10 mg tablet 2022 023 [facility] #56773, [address] [place], [place], [id number], 09/26/2022 16:11:32 fluticaso ne propionat e 50 mcg/actua tion nasal spray,bertha pension 2022 023 [facility], [address] [place], [place], [id number], 09/26/2022 16:11:31 Patient TargetsNo targets recorded. Patient Instructions Encounter Date Encounter Id Patient Instructions Last Modified By Organization Details Last Modified Time 09/26/2022 [id number] abdominal pain: care instructions Not available 09/26/2022 16:11:16 allergies: care instructions [email or web address] Not available 09/26/2022 16:11:17 managing your allergies: care instructions [email or web address] Not available 09/26/2022 16:11:17 anxiety disorder : care instructions [email or web address] Not available 09/26/2022 16:11:16 learning about anxiety disorders [email or web address] Not available 09/26/2022 16:11:17 chronic obstructive pulmonary disease (COPD): care instructions [email or web address] Not available 09/26/2022 16:11:16 learning about copd and how to prevent lung infections [email or web address] Not available 09/26/2022 16:11:17 learning about high blood pressure Not available 09/26/2022 16:11:17 eating healthy foods: care instructions [email or web address] Not available 09/26/2022 16:11:17 08/24/2023 [id number] Peripheral Arterial Disease (PAD): Care Instructions Not available 08/24/2023 17:37:49 learning about high blood sugar [email or web address] Not available 08/24/2023 17:37:49 learning about high blood pressure [email or web address] Not available 08/24/2023 17:37:49 neuropathic pain : care instructions [email or web address] Not available 08/24/2023 17:37:49 02/12/2024 [id number] learning about mood disorders [email or web address] Not available 02/13/2024 10:29:40 eating healthy foods: care instructions [email or web address] Not available 02/12/2024 22:40:58 06/11/2024 [id number] learning about high blood pressure [email or web address] Not available 06/11/2024 18:06:12 Reason for Referral Home Health Referral for His tory of acute respiratory failure Recently admitted for acute respiratort arrest. Started on O2. Needs Home PT/OT/ nurse visits for medicine training/social service to assess home needs Referring Physician: Yang Rosales, Internal Medicine, Encounter Date: 02/22/2023 Behavioral Health Referral f or Depressive disorder Not motivated to do much Referring Physician: Yang Rosales, Internal Medicine, Encounter Date: 02/12/2024 Neurologist Referral for Mem ory impairment Intermittent forgetfulness, interrupted speech pattern., alteration in alertness Referring Physician: Yang Rosales, Internal Medicine, Encounter Date: 06/11/2024 Results Created Date Observation Date Name Description Value Unit Range Abnormal Flag Note LastModifiedBy Organization Detail LastModifiedTime 07/23/19 25 07/22/2024 CBC W Auto Diffe renti al panel - Blood leukocytes [#/volume] in blood by automated count 11.6 x10'3 /uL low: 4.2x10 '3/uLh igh: 10.8x1 0'3/uL high Not Available Not Available 07/26/2024 11:45:13 07/23/19 25 07/22/2024 CBC W Auto Diffe renti al panel - Blood erythrocytes [#/volume] in blood by automated count 4.51 x10'6 /uL low: 3.8x10 '6/uLh igh: 5.2x10 '6/uL normal Not Available Not Available 07/26/2024 11:45:13 07/23/19 25 07/22/2024 CBC W Auto Diffe renti al panel - Blood hemoglobin [mass/volume ] in blood 13.3 g/dL low: 12g/dL high: 15.6g/ dL normal Not Available Not Available 07/26/2024 11:45:13 07/23/19 25 07/22/2024 CBC W Auto Diffe renti al panel - Blood hematocrit [volume fraction] of blood by automated count 47.1 % low: 35.7%h igh: 45.7% high Not Available Not Available 07/26/2024 11:45:13 07/23/19 25 07/22/2024 CBC W Auto Diffe renlula al panel - Blood MCV [entitic mean volume] in red blood cells by automated count 104.4 fL low: 82fLhi gh: 99fL high Not Available Not Available 07/26/2024 11:45:13 07/23/19 25 07/22/2024 CBC W Auto Diffe heydi naranjo panel - Blood MCH [entitic mass] by automated count 29.5 pg low: 27pghi gh: 33pg normal Not Available Not Available 07/26/2024 11:45:13 07/23/19 25 07/22/2024 CBC W Auto Diffe heydi al panel - Blood MCHC [entitic mass/volume] in red blood cells by automated count 28.2 g/dL low: 31g/dL high: 36g/dL low Not Available Not Available 07/26/2024 11:45:13 07/23/19 25 07/22/2024 CBC W Auto Diffe heydi al panel - Blood erythrocyte [distwidth] in red blood cells 12.3 % low: 11.8%h igh: 15.5% normal Not Available Not Available 07/26/2024 11:45:13 07/23/19 25 07/22/2024 CBC W Auto Diffe heydi al panel - Blood platelets [#/volume] in blood by automated count 145 x10'3 /uL low: 150x10 '3/uLh igh: 400x10 '3/uL low Not Available Not Available 07/26/2024 11:45:13 07/23/19 25 07/22/2024 CBC W Auto Diffe renti al panel - Blood platelet [entitic mean volume] in blood by automated count 10.1 fL low: 9fLhig h: 12.4fL normal Not Available Not Available 07/26/2024 11:45:13 07/23/19 25 07/22/2024 CBC W Auto Diffe renti al panel - Blood neutrophils/ leukocytes in blood 80.5 % low: 39%hig h: 72% high Not Available Not Available 07/26/2024 11:45:13 07/23/19 25 07/22/2024 CBC W Auto Diffe renti al panel - Blood lymphocytes/ leukocytes in blood 12.6 % low: 16%hig h: 47% low Not Available Not Available 07/26/2024 11:45:13 07/23/19 25 07/22/2024 CBC W Auto Diffe renti al panel - Blood monocytes/le ukocytes in blood 5.8 % low: 5%high : 12% normal Not Available Not Available 07/26/2024 11:45:13 07/23/19 25 07/22/2024 CBC W Auto Diffe renti al panel - Blood eosinophils [#/volume] in blood 0.4 % low: 1%high : 7% low Not Available Not Available 07/26/2024 11:45:13 07/23/19 25 07/22/2024 CBC W Auto Diffe renti al panel - Blood basophils/le ukocytes in blood 0.3 % low: 0%high : 2% normal Not Available Not Available 07/26/2024 11:45:13 07/23/19 25 07/22/2024 CBC W Auto Diffe renti al panel - Blood immature granulocytes /leukocytes in blood 0.4 % low: 0%high : 0.5% normal Not Available Not Available 07/26/2024 11:45:13 07/23/19 25 07/22/2024 CBC W Auto Diffe renti al panel - Blood neutrophils [#/volume] in blood 9.35 x10'3 /uL low: 1.5x10 '3/uLh igh: 8x10'3 /uL high Not Available Not Available 07/26/2024 11:45:13 07/23/19 25 07/22/2024 CBC W Auto Diffe renti al panel - Blood lymphocytes [#/volume] in blood 1.46 x10'3 /uL low: 1.07x1 0'3/uL high: 3.43x1 0'3/uL normal Not Available Not Available 07/26/2024 11:45:13 07/23/19 25 07/22/2024 CBC W Auto Diffe renti al panel - Blood monocytes [#/volume] in blood 0.67 x10'3 /uL low: 0.29x1 0'3/uL high: 0.99x1 0'3/uL normal Not Available Not Available 07/26/2024 11:45:13 07/23/19 25 07/22/2024 CBC W Auto Diffe renti al panel - Blood eosinophils [#/volume] in blood 0.05 x10'3 /uL low: 0.02x1 0'3/uL high: 0.53x1 0'3/uL normal Not Available Not Available 07/26/2024 11:45:13 07/23/19 25 07/22/2024 CBC W Auto Diffe renti al panel - Blood basophils [#/volume] in blood 0.04 x10'3 /uL low: 0.01x1 0'3/uL high: 0.08x1 0'3/uL normal Not Available Not Available 07/26/2024 11:45:13 07/23/19 25 07/22/2024 CBC W Auto Diffe renti al panel - Blood immature granulocytes [#/volume] in blood 0.05 x10'3 /uL low: 0x10'3 /uLhig h: 0.05x1 0'3/uL normal Not Available Not Available 07/26/2024 11:45:13 07/23/19 25 07/22/2024 CBC W Auto Diffe renti al panel - Blood nucleated erythrocytes /leukocytes [ratio] in blood 0 % high: 0% normal Not Available Not Available 07/26/2024 11:45:13 07/23/19 25 07/22/2024 CBC W Auto Diffe renti al panel - Blood nucleated erythrocytes [#/volume] in blood by automated count 0 x10'3 /uL normal Not Available Not Available 07/27/19 11:45:13 07/23/19 07/22/2024 CBC W Auto Diffe renti al panel - Blood hypochromia [presence] in blood by light microscopy Labora tory data interp retati on normal Not Available Not Available 11:45:13 07/23/19 25 07/22/2024 Tropo analy I.car diac [Mass /volu me] in Serum or Plasm a by Detec tion limit <= 0.01 ng/mL troponin I.cardiac [mass/volume ] in serum or plasma by detection limit <= 0.01 NG/mL <0.012 low: 0NG/mL high: 0.034N G/mL normal Not Available Not Available 07/26/2024 11:45:14 07/23/1907/22/2024 SARS- CoV-2 (COVI D-19) RNA [Pres ence] in Speci men by BERNARDO with probe detec tion sars-cov-2 (covid-19) RNA [presence] in specimen by BERNARDO with probe detection Negati ve text: negati ve normal Not Available Not Available 07/26/2024 11:45:14 07/23/19 25 07/22/2024 Natri ureti c pepti de.B proho rmone N-Ter tess [Mass /volu me] in Serum or Plasm a natriuretic peptide.B prohormone N-terminal [mass/volume ] in serum or plasma 193 pg/mL low: 0pg/mL high: 221pg/ mL normal Not Available Not Available 07/26/2024 11:45:14 07/23/19 25 07/22/2024 Lacta te [Mole s/vol ume] in Serum or Plasm a lactate [moles/volum e] in serum or plasma 0.9 mmol/ L low: 0.7mmo l/Lhig h: 1.9mmo l/L normal Not Available Not Available 07/26/2024 11:45:14 07/24/19 25 07/22/2024 Compr ehens ariela metab olic 2000 panel - Serum or Plasm a sodium [moles/volum e] in blood 139 mmol/ L low: 137mmo l/Lhig h: 145mmo l/L normal Not Available Not Available 07/26/2024 11:45:14 07/24/19 25 07/22/2024 [facility] ehens ariela metab ol 1999 panel - Serum or Plasm a potassium [moles/volum e] in serum or plasma 4.8 mmol/ L low: 3.5mmo l/Lhig h: 5.1mmo l/L normal Not Available Not Available 07/26/2024 11:45:14 07/24/19 25 07/22/2024 [facility] ehens ariela metab ol 1999 panel - Serum or Plasm a chloride [moles/volum e] in serum or plasma 87 mmol/ L low: 98mmol /Lhigh : 107mmo l/L low Not Available Not Available 07/26/2024 11:45:14 07/24/19 25 07/22/2024 [facility] ehens ariela metab ol 1999 panel - Serum or Plasm a glucose [mass/volume ] in serum or plasma 224 mg/dL low: 70mg/d Lhigh: 99mg/d L high Not Available Not Available 07/26/2024 11:45:14 07/24/19 25 07/22/[facility]24 [facility] panel - Serum or Plasm a urea nitrogen [mass or moles/volume ] in serum or plasma 21 mg/dL low: 8mg/dL high: 19mg/d L high Not Available Not Available 07/26/2024 11:45:14 07/24/19 25 07/22/2024 [facility] panel - Serum or Plasm a creatinine [mass/volume ] in serum or plasma 0.62 mg/dL low: 0.66mg /dLhig h: 1.25mg /dL low Not Available Not Available 07/26/2024 11:45:14 07/24/19 25 07/22/2024 [facility] [employer] [facility] 1999 panel - Serum or Plasm a glomerular filtration rate [volume rate/area] in serum, plasma or blood by based on 1.73 sq M >60 normal Not Available Not Available 11:45:14 07/24/19 25 07/22/2024 [facility] 1999 panel - Serum or Plasm a alkaline phosphatase [enzymatic activity/vol ume] in serum or plasma 69 U/L low: 38U/Lh igh: 126U/L normal Not Available Not Available 07/26/2024 11:45:14 07/24/19 25 07/22/2024 Compr [employer] ariela FireID olic 1999 panel - Serum or Plasm a alanine aminotransfe rase [enzymatic activity/vol ume] in serum or plasma 27 U/L low: 0U/Lhi gh: 35U/L normal Not Available Not Available 07/26/2024 11:45:14 07/24/19 25 07/22/2024 Compr ehens ariela metab olic 1999 panel - Serum or Plasm a aspartate aminotransfe rase [enzymatic activity/vol ume] in serum or plasma 36 U/L low: 15U/Lh igh: 37U/L normal Not Available Not Available 07/26/2024 11:45:14 07/24/19 25 07/22/2024 [facility] [employer] ariela FireID ol 1999 panel - Serum or Plasm a bilirubin.to mikal [mass/volume ] in serum or plasma 0.8 mg/dL low: 0.2mg/ dLhigh : 1.3mg/ dL normal Not Available Not Available 07/26/2024 11:45:14 07/24/19 25 07/22/2024 [facility] Alter-G ariela FireID [facility] 1999 panel - Serum or Plasm a calcium [mass/volume ] in serum or plasma 9.9 mg/dL low: 8.4mg/ dLhigh : 10.2mg /dL normal Not Available Not Available 07/26/2024 11:45:14 07/24/19 25 07/22/2024 [facility] [employer] ariela FireID olic 1999 panel - Serum or Plasm a protein [mass/volume ] in serum or plasma 7.1 g/dL low: 6.3g/d Lhigh: 8.2g/d L normal Not Available Not Available 07/26/2024 11:45:14 07/24/19 25 07/22/2024 Compr [employer] ariela FireID olic 1999 panel - Serum or Plasm a albumin [mass/volume ] in serum or plasma 4.6 g/dL low: 3g/dLh igh: 4.4g/d L high Not Available Not Available 07/26/2024 11:45:14 07/24/19 25 07/22/2024 Compr [employer] ariela FireID olic 1999 panel - Serum or Plasm a globulin [mass/volume ] in serum 2.5 g/dL low: 2.6g/d Lhigh: 4.2g/d L low Not Available Not Available 07/26/2024 11:45:14 07/24/19 25 07/22/2024 [facility] [employer] 1999 panel - Serum or Plasm a albumin/glob ulin [mass ratio] in serum or plasma 1.8 ratio low: 1ratio high: 2ratio normal Not Available Not Available 07/26/2024 11:45:14 07/24/19 25 07/23/2024 [facility] Alter-G ariela FireID olic 1999 panel - Serum or Plasm a carbon dioxide, total [moles/volum e] in serum or plasma 46 mmol/ L low: 22mmol /Lhigh : 30mmol /L high Not Available Not Available 07/26/2024 11:45:14 07/24/19 25 07/23/2024 [facility] Alter-G ariela FireID olic 1999 panel - Serum or Plasm a anion gap in serum or plasma by calculation 10.8 mmol/ L low: 14mmol /Lhigh : 22mmol /L low Not Available Not Available 07/26/2024 11:45:14 07/24/19 25 07/23/2024 Gas panel - Arter ial blood Unknown Analyte 7.47 pH_un its low: 7.35pH unitsh igh: 7.45pH units high Not Available Not Available 07/26/2024 11:45:15 07/24/19 25 07/23/2024 Gas panel - Arter ial blood Unknown Analyte 65.3 mm[hg ] low: 32mm[h g]high : 45mm[h g] critical high Not Available Not Available 07/26/2024 11:45:15 07/24/19 25 07/23/2024 Gas panel - Arter ial blood Unknown Analyte 103 mm[hg ] low: 83mm[h g]high : 108mm[ hg] normal Not Available Not Available 07/26/2024 11:45:15 07/24/19 25 07/23/2024 Gas panel - Arter ial blood HCO3 47.5 mmol/ L low: 21mmol /Lhigh : 28mmol /L critical high Not Available Not Available 07/26/2024 11:45:15 07/24/19 25 07/23/2024 Gas panel - Arter ial blood base excess 20.4 mmol/ L text: -2.0 high Not Available Not Available 07/26/2024 11:45:15 07/24/19 25 07/23/2024 Gas panel - Arter ial blood CO2, calculated 49.5 mmol/ L low: 18mmol /Lhigh : 28mmol /L high Not Available Not Available 07/26/2024 11:45:15 07/24/19 25 07/23/2024 Gas panel - Arter ial blood A-A gradient 70.8 mm[hg ] low: 0mm[hg ]high: 14mm[h g] high Not Available Not Available 07/26/2024 11:45:15 07/24/19 25 07/23/2024 Gas panel - Arter ial blood gabriel's test Gabriel test for arteri al compet ency normal Not Available Not Available 11:45:15 07/24/19 25 07/23/2024 Gas panel - Arter ial blood Unknown Analyte Arteri al site normal Not Available Not Available 11:45:15 07/24/19 25 07/23/2024 Gas panel - Arter ial blood Unknown Analyte 35 % normal Not Available Not Available 11/2024 11:45:15 07/24/19 25 07/23/2024 Gas panel - Arter ial blood Unknown Analyte BiPAP oxygen nasal cannul a normal Not Available Not Available 11:45:15 07/24/19 25 07/23/2024 Gas panel - Arter ial blood Unknown Analyte 18/8 normal Not Available Not Available 11/2024 11:45:15 07/24/19 25 07/23/2024 CBC W Auto Diffe renti al panel - Blood leukocytes [#/volume] in blood by automated count 6.9 x10'3 /uL low: 4.2x10 '3/uLh igh: 10.8x1 0'3/uL normal Not Available Not Available 07/26/2024 11:45:14 07/24/19 25 07/23/2024 CBC W Auto Diffe renti al panel - Blood erythrocytes [#/volume] in blood by automated count 3.71 x10'6 /uL low: 3.8x10 '6/uLh igh: 5.2x10 '6/uL low Not Available Not Available 07/26/2024 11:45:14 07/24/19 25 07/23/2024 CBC W Auto Diffe renti al panel - Blood hemoglobin [mass/volume ] in blood 11.1 g/dL low: 12g/dL high: 15.6g/ dL low Not Available Not Available 07/26/2024 11:45:14 07/24/19 25 07/23/2024 CBC W Auto Diffe renti al panel - Blood hematocrit [volume fraction] of blood by automated count 37.3 % low: 35.7%h igh: 45.7% normal Not Available Not Available 07/26/2024 11:45:14 07/24/1907/23/2024 CBC W Auto Diffe renti al panel - Blood MCV [entitic mean volume] in red blood cells by automated count 100.5 fL low: 82fLhi gh: 99fL high Not Available Not Available 07/26/2024 11:45:14 07/24/19 25 07/23/2024 CBC W Auto Diffe heydi al panel - Blood MCH [entitic mass] by automated count 29.9 pg low: 27pghi gh: 33pg normal Not Available Not Available 07/26/2024 11:45:14 07/24/19 25 07/23/2024 CBC W Auto Diffe jati al panel - Blood MCHC [entitic mass/volume] in red blood cells by automated count 29.8 g/dL low: 31g/dL high: 36g/dL low Not Available Not Available 07/26/2024 11:45:14 07/24/19 25 07/23/2024 CBC W Auto Diffe heydi al panel - Blood erythrocyte [distwidth] in red blood cells 12.4 % low: 11.8%h igh: 15.5% normal Not Available Not Available 07/26/2024 11:45:14 07/24/19 25 07/23/2024 CBC W Auto Diffe jati al panel - Blood platelets [#/volume] in blood by automated count 129 x10'3 /uL low: 150x10 '3/uLh igh: 400x10 '3/uL low Not Available Not Available 07/26/2024 11:45:14 07/24/19 25 07/23/2024 CBC W Auto Diffe renti al panel - Blood platelet [entitic mean volume] in blood by automated count 11.1 fL low: 9fLhig h: 12.4fL normal Not Available Not Available 07/26/2024 11:45:14 07/24/19 25 07/23/2024 CBC W Auto Diffe renti al panel - Blood neutrophils/ leukocytes in blood 79.2 % low: 39%hig h: 72% high Not Available Not Available 07/26/2024 11:45:14 07/24/19 25 07/23/2024 CBC W Auto Diffe renti al panel - Blood lymphocytes/ leukocytes in blood 16.2 % low: 16%hig h: 47% normal Not Available Not Available 07/26/2024 11:45:14 07/24/19 25 07/23/2024 CBC W Auto Diffe renti al panel - Blood monocytes/le ukocytes in blood 3.9 % low: 5%high : 12% low Not Available Not Available 07/26/2024 11:45:14 07/24/19 25 07/23/2024 CBC W Auto Diffe renti al panel - Blood eosinophils [#/volume] in blood 0 % low: 1%high : 7% low Not Available Not Available 07/26/2024 11:45:14 07/24/19 25 07/23/2024 CBC W Auto Diffe renti al panel - Blood basophils/le ukocytes in blood 0.1 % low: 0%high : 2% normal Not Available Not Available 07/26/2024 11:45:14 07/24/19 25 07/23/2024 CBC W Auto Diffe renti al panel - Blood immature granulocytes /leukocytes in blood 0.6 % low: 0%high : 0.5% high Not Available Not Available 07/26/2024 11:45:14 07/24/19 25 07/23/2024 CBC W Auto Diffe renti al panel - Blood neutrophils [#/volume] in blood 5.44 x10'3 /uL low: 1.5x10 '3/uLh igh: 8x10'3 /uL normal Not Available Not Available 07/26/2024 11:45:14 07/24/19 25 07/23/2024 CBC W Auto Diffe renti al panel - Blood lymphocytes [#/volume] in blood 1.11 x10'3 /uL low: 1.07x1 0'3/uL high: 3.43x1 0'3/uL normal Not Available Not Available 07/26/2024 11:45:14 07/24/19 25 07/23/2024 CBC W Auto Diffe renti al panel - Blood monocytes [#/volume] in blood 0.27 x10'3 /uL low: 0.29x1 0'3/uL high: 0.99x1 0'3/uL low Not Available Not Available 07/26/2024 11:45:14 07/24/19 25 07/23/2024 CBC W Auto Diffe renti al panel - Blood eosinophils [#/volume] in blood 0 x10'3 /uL low: 0.02x1 0'3/uL high: 0.53x1 0'3/uL low Not Available Not Available 07/26/2024 11:45:14 07/24/19 25 07/23/2024 CBC W Auto Diffe renti al panel - Blood basophils [#/volume] in blood 0.01 x10'3 /uL low: 0.01x1 0'3/uL high: 0.08x1 0'3/uL normal Not Available Not Available 07/26/2024 11:45:14 07/24/1907/23/2024 CBC W Auto Diffe renti al panel - Blood immature granulocytes [#/volume] in blood 0.04 x10'3 /uL low: 0x10'3 /uLhig h: 0.05x1 0'3/uL normal Not Available Not Available 07/26/2024 11:45:14 07/24/19 25 07/23/2024 CBC W Auto Diffe renti al panel - Blood nucleated erythrocytes /leukocytes [ratio] in blood 0 % high: 0% normal Not Available Not Available 07/26/2024 11:45:14 07/24/19 25 07/23/2024 CBC W Auto Diffe renti al panel - Blood nucleated erythrocytes [#/volume] in blood by automated count 0 x10'3 /uL normal Not Available Not Available 07/27/19 11:45:14 07/24/1907/23/2024 CBC W Auto Diffe renti al panel - Blood hypochromia [presence] in blood by light microscopy Kendraa jose data interp retati on normal Not Available Not Available 11:45:14 07/24/19 25 07/23/2024 [facility] ehens ariela metab olic 1999 panel - Serum or Plasm a sodium [moles/volum e] in blood 136 mmol/ L low: 137mmo l/Lhig h: 145mmo l/L low Not Available Not Available 07/26/2024 11:45:14 07/24/19 25 07/23/2024 Compr ehens ariela metab olic 1999 panel - Serum or Plasm a potassium [moles/volum e] in serum or plasma 4.5 mmol/ L low: 3.5mmo l/Lhig h: 5.1mmo l/L normal Not Available Not Available 07/26/2024 11:45:14 07/24/19 25 07/23/2024 Compr ehens ariela metab olic 1999 panel - Serum or Plasm a chloride [moles/volum e] in serum or plasma 88 mmol/ L low: 98mmol /Lhigh : 107mmo l/L low Not Available Not Available 07/26/2024 11:45:14 07/24/19 25 07/23/2024 [facility] ehens ariela metab olic 1999 panel - Serum or Plasm a carbon dioxide, total [moles/volum e] in serum or plasma 42 mmol/ L low: 22mmol /Lhigh : 30mmol /L high Not Available Not Available 07/26/2024 11:45:14 07/24/19 25 07/23/2024 Compr ehens ariela metab olic 1999 panel - Serum or Plasm a anion gap in serum or plasma by calculation 10.5 mmol/ L low: 14mmol /Lhigh : 22mmol /L low Not Available Not Available 07/26/2024 11:45:14 07/24/19 25 07/23/2024 [facility] ehens ariela metab olic 1999 panel - Serum or Plasm a glucose [mass/volume ] in serum or plasma 123 mg/dL low: 70mg/d Lhigh: 99mg/d L high Not Available Not Available 07/26/2024 11:45:14 07/24/19 25 07/23/2024 [facility] Alter-G ariela [employer] [facility] 1999 panel - Serum or Plasm a urea nitrogen [mass or moles/volume ] in serum or plasma 24 mg/dL low: 8mg/dL high: 19mg/d L high Not Available Not Available 07/26/2024 11:45:14 07/24/19 25 07/23/2024 [facility] 1999 panel - Serum or Plasm a creatinine [mass/volume ] in serum or plasma 0.62 mg/dL low: 0.66mg /dLhig h: 1.25mg /dL low Not Available Not Available 07/26/2024 11:45:14 07/24/19 25 07/23/2024 [facility] 1999 panel - Serum or Plasm a glomerular filtration rate [volume rate/area] in serum, plasma or blood by based on 1.73 sq M >60 normal Not Available Not Available 11:45:14 07/24/19 25 07/23/2024 [facility] ariela Fire[employer] [place] [address] panel - Serum or Plasm a alkaline phosphatase [enzymatic activity/vol ume] in serum or plasma 54 U/L low: 38U/Lh igh: 126U/L normal Not Available Not Available 07/26/2024 11:45:14 07/24/19 25 07/23/2024 [facility] ariela Fire[employer] [place] [address] panel - Serum or Plasm a alanine aminotransfe rase [enzymatic activity/vol ume] in serum or plasma 24 U/L low: 0U/Lhi gh: 35U/L normal Not Available Not Available 07/26/2024 11:45:14 07/24/19 25 07/23/2024 [facility] ariela [employer] [place] [address] panel - Serum or Plasm a aspartate aminotransfe rase [enzymatic activity/vol ume] in serum or plasma 32 U/L low: 15U/Lh igh: 37U/L normal Not Available Not Available 07/26/2024 11:45:14 07/24/19 25 07/23/2024 [facility] [place]riela [employer] [place] [address] panel - Serum or Plasm a bilirubin.to mikal [mass/volume ] in serum or plasma 0.9 mg/dL low: 0.2mg/ dLhigh : 1.3mg/ dL normal Not Available Not Available 07/26/2024 11:45:14 07/24/19 25 07/23/2024 [facility] [employer] [facility] 1999 panel - Serum or Plasm a calcium [mass/volume ] in serum or plasma 9.7 mg/dL low: 8.4mg/ dLhigh : 10.2mg /dL normal Not Available Not Available 07/26/2024 11:45:14 07/24/19 25 07/23/2024 [facility] 1999 panel - Serum or Plasm a protein [mass/volume ] in serum or plasma 6.6 g/dL low: 6.3g/d Lhigh: 8.2g/d L normal Not Available Not Available 07/26/2024 11:45:14 07/24/19 25 07/23/2024 [facility] 1999 panel - Serum or Plasm a albumin [mass/volume ] in serum or plasma 4.2 g/dL low: 3g/dLh igh: 4.4g/d L normal Not Available Not Available 07/26/2024 11:45:14 07/24/19 25 07/23/2024 [facility] 1999 panel - Serum or Plasm a globulin [mass/volume ] in serum 2.4 g/dL low: 2.6g/d Lhigh: 4.2g/d L low Not Available Not Available 07/26/2024 11:45:14 07/24/19 25 07/23/2024 [facility] 1999 panel - Serum or Plasm a albumin/glob ulin [mass ratio] in serum or plasma 1.8 ratio low: 1ratio high: 2ratio normal Not Available Not Available 07/26/2024 11:45:14 07/24/19 25 07/23/2024 Phosp hate [Mass /volu me] in Serum or Plasm a phosphate [mass/volume ] in serum or plasma 3.1 mg/dL low: 2.5mg/ dLhigh : 4.5mg/ dL normal Not Available Not Available 07/26/2024 11:45:15 07/24/19 25 07/23/2024 Magne sium [Mass /volu me] in Serum or Plasm a magnesium [mass/volume ] in serum or plasma 2 mg/dL low: 1.6mg/ dLhigh : 2.3mg/ dL normal Not Available Not Available 07/26/2024 11:45:15 07/25/19 25 07/24/2024 [facility] [employer] ariela metab ol 1999 panel - Serum or Plasm a sodium [moles/volum e] in blood 142 mmol/ L low: 137mmo l/Lhig h: 145mmo l/L normal Not Available Not Available 07/26/2024 11:45:14 07/25/19 25 07/24/2024 [facility] [employer] ariela FireID ic 1999 panel - Serum or Plasm a potassium [moles/volum e] in serum or plasma 3.9 mmol/ L low: 3.5mmo l/Lhig h: 5.1mmo l/L normal Not Available Not Available 07/26/2024 11:45:14 07/25/19 25 07/24/2024 [facility] [employer] ariela [employer] [facility] 1999 panel - Serum or Plasm a chloride [moles/volum e] in serum or plasma 90 mmol/ L low: 98mmol /Lhigh : 107mmo l/L low Not Available Not Available 07/26/2024 11:45:14 07/25/19 25 07/24/2024 [facility] [employer] ariela [employer] [facility] 1999 panel - Serum or Plasm a carbon dioxide, total [moles/volum e] in serum or plasma 43 mmol/ L low: 22mmol /Lhigh : 30mmol /L high Not Available Not Available 07/26/2024 11:45:14 07/25/19 25 07/24/2024 [facility] [employer] ariela [employer] [facility] 1999 panel - Serum or Plasm a anion gap in serum or plasma by calculation 12.9 mmol/ L low: 14mmol /Lhigh : 22mmol /L low Not Available Not Available 07/26/2024 11:45:14 07/25/19 25 07/24/2024 [facility] Alter-G ariela [employer] [facility] 1999 panel - Serum or Plasm a glucose [mass/volume ] in serum or plasma 114 mg/dL low: 70mg/d Lhigh: 99mg/d L high Not Available Not Available 07/26/2024 11:45:14 07/25/19 25 07/24/2024 [facility] 1999 panel - Serum or Plasm a urea nitrogen [mass or moles/volume ] in serum or plasma 24 mg/dL low: 8mg/dL high: 19mg/d L high Not Available Not Available 07/26/2024 11:45:14 07/25/19 25 07/24/2024 [facility] 1999 panel - Serum or Plasm a creatinine [mass/volume ] in serum or plasma 0.79 mg/dL low: 0.66mg /dLhig h: 1.25mg /dL normal Not Available Not Available 07/26/2024 11:45:14 07/25/19 25 07/24/2024 [facility] ariela [facility] 1999 panel - Serum or Plasm a glomerular filtration rate [volume rate/area] in serum, plasma or blood by based on 1.73 sq M >60 normal Not Available Not Available 11:45:14 07/25/19 25 07/24/2024 [facility] ariela [place] [address] panel - Serum or Plasm a alkaline phosphatase [enzymatic activity/vol ume] in serum or plasma 49 U/L low: 38U/Lh igh: 126U/L normal Not Available Not Available 07/26/2024 11:45:14 07/25/19 25 07/24/2024 [facility] [place] [address] panel - Serum or Plasm a alanine aminotransfe rase [enzymatic activity/vol ume] in serum or plasma 23 U/L low: 0U/Lhi gh: 35U/L normal Not Available Not Available 07/26/2024 11:45:14 07/25/19 25 07/24/2024 [facility] [place] [address] panel - Serum or Plasm a aspartate aminotransfe rase [enzymatic activity/vol ume] in serum or plasma 30 U/L low: 15U/Lh igh: 37U/L normal Not Available Not Available 07/26/2024 11:45:14 07/25/19 25 07/24/2024 [facility] [place] [address] panel - Serum or Plasm a bilirubin.to mikal [mass/volume ] in serum or plasma 1.1 mg/dL low: 0.2mg/ dLhigh : 1.3mg/ dL normal Not Available Not Available 07/26/2024 11:45:14 07/25/19 25 07/24/2024 [facility] Alter-G ariela [employer] [facility] 1999 panel - Serum or Plasm a calcium [mass/volume ] in serum or plasma 9.6 mg/dL low: 8.4mg/ dLhigh : 10.2mg /dL normal Not Available Not Available 07/26/2024 11:45:14 07/25/19 25 07/24/2024 [facility] ariela [facility] 1999 panel - Serum or Plasm a protein [mass/volume ] in serum or plasma 6.5 g/dL low: 6.3g/d Lhigh: 8.2g/d L normal Not Available Not Available 07/26/2024 11:45:14 07/25/19 25 07/24/2024 [facility] [employer] [facility] 1999 panel - Serum or Plasm a albumin [mass/volume ] in serum or plasma 4.3 g/dL low: 3g/dLh igh: 4.4g/d L normal Not Available Not Available 07/26/2024 11:45:14 07/25/19 25 07/24/2024 [facility] ariela [employer] [facility] 1999 panel - Serum or Plasm a globulin [mass/volume ] in serum 2.2 g/dL low: 2.6g/d Lhigh: 4.2g/d L low Not Available Not Available 07/26/2024 11:45:14 07/25/19 25 07/24/2024 [facility] ariela [employer] [facility] 1999 panel - Serum or Plasm a albumin/glob ulin [mass ratio] in serum or plasma 2 ratio low: 1ratio high: 2ratio normal Not Available Not Available 07/26/2024 11:45:14 07/25/19 25 07/24/2024 Magne sium [Mass /volu me] in Serum or Plasm a magnesium [mass/volume ] in serum or plasma 2 mg/dL low: 1.6mg/ dLhigh : 2.3mg/ dL normal Not Available Not Available 07/26/2024 11:45:15 07/25/19 25 07/24/2024 Phosp hate [Mass /volu me] in Serum or Plasm a phosphate [mass/volume ] in serum or plasma 3.2 mg/dL low: 2.5mg/ dLhigh : 4.5mg/ dL normal Not Available Not Available 07/26/2024 11:45:15 07/25/19 25 07/24/2024 CBC W Auto Diffe renti al panel - Blood leukocytes [#/volume] in blood by automated count 9.1 x10'3 /uL low: 4.2x10 '3/uLh igh: 10.8x1 0'3/uL normal Not Available Not Available 07/26/2024 11:45:14 07/25/19 25 07/24/2024 CBC W Auto Diffe renti al panel - Blood erythrocytes [#/volume] in blood by automated count 3.93 x10'6 /uL low: 3.8x10 '6/uLh igh: 5.2x10 '6/uL normal Not Available Not Available 07/26/2024 11:45:14 07/25/19 25 07/24/2024 CBC W Auto Diffe renti al panel - Blood hemoglobin [mass/volume ] in blood 11.7 g/dL low: 12g/dL high: 15.6g/ dL low Not Available Not Available 07/26/2024 11:45:14 07/25/19 25 07/24/2024 CBC W Auto Diffe renti al panel - Blood hematocrit [volume fraction] of blood by automated count 38.5 % low: 35.7%h igh: 45.7% normal Not Available Not Available 07/26/2024 11:45:14 07/25/19 25 07/24/2024 CBC W Auto Diffe renti al panel - Blood MCV [entitic mean volume] in red blood cells by automated count 98 fL low: 82fLhi gh: 99fL normal Not Available Not Available 07/26/2024 11:45:14 07/25/19 25 07/24/2024 CBC W Auto Diffe renti al panel - Blood MCH [entitic mass] by automated count 29.8 pg low: 27pghi gh: 33pg normal Not Available Not Available 07/26/2024 11:45:14 07/25/19 25 07/24/2024 CBC W Auto Diffe renti al panel - Blood MCHC [entitic mass/volume] in red blood cells by automated count 30.4 g/dL low: 31g/dL high: 36g/dL low Not Available Not Available 07/26/2024 11:45:14 07/25/19 25 07/24/2024 CBC W Auto Diffe renti al panel - Blood erythrocyte [distwidth] in red blood cells 12.5 % low: 11.8%h igh: 15.5% normal Not Available Not Available 07/26/2024 11:45:14 07/25/19 25 07/24/2024 CBC W Auto Diffe renti al panel - Blood platelets [#/volume] in blood by automated count 145 x10'3 /uL low: 150x10 '3/uLh igh: 400x10 '3/uL low Not Available Not Available 07/26/2024 11:45:14 07/25/19 25 07/24/2024 CBC W Auto Diffe renti al panel - Blood platelet [entitic mean volume] in blood by automated count 10.6 fL low: 9fLhig h: 12.4fL normal Not Available Not Available 07/26/2024 11:45:14 07/25/19 25 07/24/2024 CBC W Auto Diffe renti al panel - Blood neutrophils/ leukocytes in blood 68 % low: 39%hig h: 72% normal Not Available Not Available 07/26/2024 11:45:14 07/25/19 25 07/24/2024 CBC W Auto Diffe renti al panel - Blood lymphocytes/ leukocytes in blood 19.1 % low: 16%hig h: 47% normal Not Available Not Available 07/26/2024 11:45:14 07/25/19 25 07/24/2024 CBC W Auto Diffe renti al panel - Blood monocytes/le ukocytes in blood 12.3 % low: 5%high : 12% high Not Available Not Available 07/26/2024 11:45:14 07/25/19 25 07/24/2024 CBC W Auto Diffe renti al panel - Blood eosinophils [#/volume] in blood 0.2 % low: 1%high : 7% low Not Available Not Available 07/26/2024 11:45:14 07/25/19 25 07/24/2024 CBC W Auto Diffe renti al panel - Blood basophils/le ukocytes in blood 0.1 % low: 0%high : 2% normal Not Available Not Available 07/26/2024 11:45:14 07/25/19 25 07/24/2024 CBC W Auto Diffe renti al panel - Blood immature granulocytes /leukocytes in blood 0.3 % low: 0%high : 0.5% normal Not Available Not Available 07/26/2024 11:45:14 07/25/19 25 07/24/2024 CBC W Auto Diffe renti al panel - Blood neutrophils [#/volume] in blood 6.17 x10'3 /uL low: 1.5x10 '3/uLh igh: 8x10'3 /uL normal Not Available Not Available 07/26/2024 11:45:14 07/25/19 25 07/24/2024 CBC W Auto Diffe renti al panel - Blood lymphocytes [#/volume] in blood 1.73 x10'3 /uL low: 1.07x1 0'3/uL high: 3.43x1 0'3/uL normal Not Available Not Available 07/26/2024 11:45:14 07/25/19 25 07/24/2024 CBC W Auto Diffe renti al panel - Blood monocytes [#/volume] in blood 1.12 x10'3 /uL low: 0.29x1 0'3/uL high: 0.99x1 0'3/uL high Not Available Not Available 07/26/2024 11:45:14 07/25/19 25 07/24/2024 CBC W Auto Diffe renti al panel - Blood eosinophils [#/volume] in blood 0.02 x10'3 /uL low: 0.02x1 0'3/uL high: 0.53x1 0'3/uL normal Not Available Not Available 07/26/2024 11:45:14 07/25/19 25 07/24/2024 CBC W Auto Diffe renti al panel - Blood basophils [#/volume] in blood 0.01 x10'3 /uL low: 0.01x1 0'3/uL high: 0.08x1 0'3/uL normal Not Available Not Available 07/26/2024 11:45:14 07/25/19 25 07/24/2024 CBC W Auto Diffe renti al panel - Blood immature granulocytes [#/volume] in blood 0.03 x10'3 /uL low: 0x10'3 /uLhig h: 0.05x1 0'3/uL normal Not Available Not Available 07/26/2024 11:45:14 07/25/19 25 07/24/2024 CBC W Auto Diffe renti al panel - Blood nucleated erythrocytes /leukocytes [ratio] in blood 0 % high: 0% normal Not Available Not Available 07/26/2024 11:45:14 07/25/19 25 07/24/2024 CBC W Auto Diffe renti al panel - Blood nucleated erythrocytes [#/volume] in blood by automated count 0 x10'3 /uL normal Not Available Not Available 07/27/19 11:45:14 07/26/19 25 07/25/2024 CBC W Auto Diffe renti al panel - Blood leukocytes [#/volume] in blood by automated count 6.7 x10'3 /uL low: 4.2x10 '3/uLh igh: 10.8x1 0'3/uL normal Not Available Not Available 07/26/2024 11:45:14 07/26/19 25 07/25/2024 CBC W Auto Diffe renti al panel - Blood erythrocytes [#/volume] in blood by automated count 3.89 x10'6 /uL low: 3.8x10 '6/uLh igh: 5.2x10 '6/uL normal Not Available Not Available 07/26/2024 11:45:14 07/26/19 25 07/25/2024 CBC W Auto Diffe renti al panel - Blood hemoglobin [mass/volume ] in blood 11.5 g/dL low: 12g/dL high: 15.6g/ dL low Not Available Not Available 07/26/2024 11:45:14 07/26/19 25 07/25/2024 CBC W Auto Diffe renti al panel - Blood hematocrit [volume fraction] of blood by automated count 38.9 % low: 35.7%h igh: 45.7% normal Not Available Not Available 07/26/2024 11:45:14 07/26/19 25 07/25/2024 CBC W Auto Diffe renti al panel - Blood MCV [entitic mean volume] in red blood cells by automated count 100 fL low: 82fLhi gh: 99fL high Not Available Not Available 07/26/2024 11:45:14 07/26/19 25 07/25/2024 CBC W Auto Diffe renti al panel - Blood MCH [entitic mass] by automated count 29.6 pg low: 27pghi gh: 33pg normal Not Available Not Available 07/26/2024 11:45:14 07/26/19 25 07/25/2024 CBC W Auto Diffe renti al panel - Blood MCHC [entitic mass/volume] in red blood cells by automated count 29.6 g/dL low: 31g/dL high: 36g/dL low Not Available Not Available 07/26/2024 11:45:14 07/26/19 25 07/25/2024 CBC W Auto Diffe renti al panel - Blood erythrocyte [distwidth] in red blood cells 12.6 % low: 11.8%h igh: 15.5% normal Not Available Not Available 07/26/2024 11:45:14 07/26/19 25 07/25/2024 CBC W Auto Diffe renti al panel - Blood platelets [#/volume] in blood by automated count 127 x10'3 /uL low: 150x10 '3/uLh igh: 400x10 '3/uL low Not Available Not Available 07/26/2024 11:45:14 07/26/19 25 07/25/2024 CBC W Auto Diffe renti al panel - Blood platelet [entitic mean volume] in blood by automated count 10.5 fL low: 9fLhig h: 12.4fL normal Not Available Not Available 07/26/2024 11:45:14 07/26/19 25 07/25/2024 CBC W Auto Diffe renti al panel - Blood neutrophils/ leukocytes in blood 61.2 % low: 39%hig h: 72% normal Not Available Not Available 07/26/2024 11:45:14 07/26/19 25 07/25/2024 CBC W Auto Diffe renti al panel - Blood lymphocytes/ leukocytes in blood 24.9 % low: 16%hig h: 47% normal Not Available Not Available 07/26/2024 11:45:14 07/26/19 25 07/25/2024 CBC W Auto Diffe renti al panel - Blood monocytes/le ukocytes in blood 13.5 % low: 5%high : 12% high Not Available Not Available 07/26/2024 11:45:14 07/26/19 25 07/25/2024 CBC W Auto Diffe renti al panel - Blood eosinophils [#/volume] in blood 0 % low: 1%high : 7% low Not Available Not Available 07/26/2024 11:45:14 07/26/19 25 07/25/2024 CBC W Auto Diffe renti al panel - Blood basophils/le ukocytes in blood 0.1 % low: 0%high : 2% normal Not Available Not Available 07/26/2024 11:45:14 07/26/19 25 07/25/2024 CBC W Auto Diffe renti al panel - Blood immature granulocytes /leukocytes in blood 0.3 % low: 0%high : 0.5% normal Not Available Not Available 07/26/2024 11:45:14 07/26/19 25 07/25/2024 CBC W Auto Diffe renti al panel - Blood neutrophils [#/volume] in blood 4.11 x10'3 /uL low: 1.5x10 '3/uLh igh: 8x10'3 /uL normal Not Available Not Available 07/26/2024 11:45:14 07/26/19 25 07/25/2024 CBC W Auto Diffe renti al panel - Blood lymphocytes [#/volume] in blood 1.67 x10'3 /uL low: 1.07x1 0'3/uL high: 3.43x1 0'3/uL normal Not Available Not Available 07/26/2024 11:45:14 07/26/19 25 07/25/2024 CBC W Auto Diffe renti al panel - Blood monocytes [#/volume] in blood 0.91 x10'3 /uL low: 0.29x1 0'3/uL high: 0.99x1 0'3/uL normal Not Available Not Available 07/26/2024 11:45:14 07/26/19 25 07/25/2024 CBC W Auto Diffe renti al panel - Blood eosinophils [#/volume] in blood 0 x10'3 /uL low: 0.02x1 0'3/uL high: 0.53x1 0'3/uL low Not Available Not Available 07/26/2024 11:45:14 07/26/19 25 07/25/2024 CBC W Auto Diffe renti al panel - Blood basophils [#/volume] in blood 0.01 x10'3 /uL low: 0.01x1 0'3/uL high: 0.08x1 0'3/uL normal Not Available Not Available 07/26/2024 11:45:14 07/26/19 25 07/25/2024 CBC W Auto Diffe renti al panel - Blood immature granulocytes [#/volume] in blood 0.02 x10'3 /uL low: 0x10'3 /uLhig h: 0.05x1 0'3/uL normal Not Available Not Available 07/26/2024 11:45:14 07/26/19 25 07/25/2024 CBC W Auto Diffe renti al panel - Blood nucleated erythrocytes /leukocytes [ratio] in blood 0 % high: 0% normal Not Available Not Available 07/26/2024 11:45:14 07/26/19 25 07/25/2024 CBC W Auto Diffe renti al panel - Blood nucleated erythrocytes [#/volume] in blood by automated count 0 x10'3 /uL normal Not Available Not Available 07/27/19 11:45:14 07/26/19 25 07/25/2024 CBC W Auto Diffe renti al panel - Blood anisocytosis [presence] in blood by light microscopy [employer] interp retati on normal Not Available Not Available 11:45:14 07/26/19 25 07/25/2024 CBC W Auto Diffe renti al panel - Blood poikilocytos is [presence] in blood by light microscopy [employer] data interp retati on normal Not Available Not Available 11:45:14 07/26/19 25 07/25/2024 CBC W Auto Diffe renti al panel - Blood hypochromia [presence] in blood by light microscopy [employer] data interp retati on normal Not Available Not Available 11:45:14 07/26/19 25 07/25/2024 CBC W Auto Diffe renti al panel - Blood macrocytes [presence] in blood by light microscopy [employer] data interp retati on normal Not Available Not Available 11:45:14 07/26/19 25 07/25/2024 Compr ehens ariela metab olic 1999 panel - Serum or Plasm a sodium [moles/volum e] in blood 143 mmol/ L low: 137mmo l/Lhig h: 145mmo l/L normal Not Available Not Available 07/26/2024 11:45:15 07/26/19 25 07/25/2024 Compr ehens ariela metab olic 1999 panel - Serum or Plasm a potassium [moles/volum e] in serum or plasma 3.9 mmol/ L low: 3.5mmo l/Lhig h: 5.1mmo l/L normal Not Available Not Available 07/26/2024 11:45:15 07/26/19 25 07/25/2024 Compr ehens ariela metab olic 1999 panel - Serum or Plasm a chloride [moles/volum e] in serum or plasma 91 mmol/ L low: 98mmol /Lhigh : 107mmo l/L low Not Available Not Available 07/26/2024 11:45:15 07/26/19 25 07/25/2024 Compr ehens ariela metab olic 1999 panel - Serum or Plasm a carbon dioxide, total [moles/volum e] in serum or plasma 41 mmol/ L low: 22mmol /Lhigh : 30mmol /L high Not Available Not Available 07/26/2024 11:45:15 07/26/19 25 07/25/2024 Compr ehens ariela metab olic 1999 panel - Serum or Plasm a anion gap in serum or plasma by calculation 14.9 mmol/ L low: 14mmol /Lhigh : 22mmol /L normal Not Available Not Available 07/26/2024 11:45:15 07/26/19 25 07/25/2024 Compr ehens ariela metab olic 1999 panel - Serum or Plasm a glucose [mass/volume ] in serum or plasma 144 mg/dL low: 70mg/d Lhigh: 99mg/d L high Not Available Not Available 07/26/2024 11:45:15 07/26/19 25 07/25/2024 Compr ehens ariela metab olic 2000 panel - Serum or Plasm a urea nitrogen [mass or moles/volume ] in serum or plasma 23 mg/dL low: 8mg/dL high: 19mg/d L high Not Available Not Available 07/26/2024 11:45:15 07/26/19 25 07/25/2024 [facility] [employer]G [employer] [facility] 1999 panel - Serum or Plasm a creatinine [mass/volume ] in serum or plasma 0.63 mg/dL low: 0.66mg /dLhig h: 1.25mg /dL low Not Available Not Available 07/26/2024 11:45:15 07/26/19 25 07/25/2024 [facility] [employer] 1999 panel - Serum or Plasm a glomerular filtration rate [volume rate/area] in serum, plasma or blood by based on 1.73 sq M >60 normal Not Available Not Available 11:45:15 07/26/19 25 07/25/2024 [facility] [employer]G [employer] 1999 panel - Serum or Plasm a alkaline phosphatase [enzymatic activity/vol ume] in serum or plasma 43 U/L low: 38U/Lh igh: 126U/L normal Not Available Not Available 07/26/2024 11:45:15 07/26/19 25 07/25/2024 [facility] Alter-G ariela [employer] 1999 panel - Serum or Plasm a alanine aminotransfe rase [enzymatic activity/vol ume] in serum or plasma 27 U/L low: 0U/Lhi gh: 35U/L normal Not Available Not Available 07/26/2024 11:45:15 07/26/19 25 07/25/2024 [facility] Alter-G ariela [employer] 1999 panel - Serum or Plasm a aspartate aminotransfe rase [enzymatic activity/vol ume] in serum or plasma 29 U/L low: 15U/Lh igh: 37U/L normal Not Available Not Available 07/26/2024 11:45:15 07/26/19 25 07/25/2024 [facility] [employer] 1999 panel - Serum or Plasm a bilirubin.to mikal [mass/volume ] in serum or plasma 0.8 mg/dL low: 0.2mg/ dLhigh : 1.3mg/ dL normal Not Available Not Available 07/26/2024 11:45:15 07/26/19 25 07/25/2024 [facility] [employer] [facility] 1999 panel - Serum or Plasm a calcium [mass/volume ] in serum or plasma 9.3 mg/dL low: 8.4mg/ dLhigh : 10.2mg /dL normal Not Available Not Available 07/26/2024 11:45:15 07/26/19 25 07/25/2024 [facility] 1999 panel - Serum or Plasm a protein [mass/volume ] in serum or plasma 6.1 g/dL low: 6.3g/d Lhigh: 8.2g/d L low Not Available Not Available 07/26/2024 11:45:15 07/26/19 25 07/25/2024 [facility] [employer] [facility] [facility] 1999 panel - Serum or Plasm a albumin [mass/volume ] in serum or plasma 4 g/dL low: 3g/dLh igh: 4.4g/d L normal Not Available Not Available 07/26/2024 11:45:15 07/26/19 25 07/25/[facility]24 [facility] panel - Serum or Plasm a globulin [mass/volume ] in serum 2.1 g/dL low: 2.6g/d Lhigh: 4.2g/d L low Not Available Not Available 07/26/2024 11:45:15 07/26/19 25 07/25/2024 [facility] panel - Serum or Plasm a albumin/glob ulin [mass ratio] in serum or plasma 1.9 ratio low: 1ratio high: 2ratio normal Not Available Not Available 07/26/2024 11:45:15 07/26/19 25 07/25/2024 Phosp hate [Mass /volu me] in Serum or Plasm a phosphate [mass/volume ] in serum or plasma 3.4 mg/dL low: 2.5mg/ dLhigh : 4.5mg/ dL normal Not Available Not Available 07/26/2024 11:45:15 07/26/19 25 07/25/2024 Magne sium [Mass /volu me] in Serum or Plasm a magnesium [mass/volume ] in serum or plasma 2.1 mg/dL low: 1.6mg/ dLhigh : 2.3mg/ dL normal Not Available Not Available 07/26/2024 11:45:15 07/27/19 25 07/26/2024 Compr ehens ariela metab olic 1999 panel - Serum or Plasm a sodium [moles/volum e] in blood 142 mmol/ L low: 137mmo l/Lhig h: 145mmo l/L normal Not Available Not Available 07/26/2024 11:45:15 07/27/19 25 07/26/2024 Compr ehens ariela metab olic 1999 panel - Serum or Plasm a potassium [moles/volum e] in serum or plasma 3.9 mmol/ L low: 3.5mmo l/Lhig h: 5.1mmo l/L normal Not Available Not Available 07/26/2024 11:45:15 07/27/19 25 07/26/2024 Compr ehens ariela metab olic 1999 panel - Serum or Plasm a chloride [moles/volum e] in serum or plasma 93 mmol/ L low: 98mmol /Lhigh : 107mmo l/L low Not Available Not Available 07/26/2024 11:45:15 07/27/19 25 07/26/[facility]24 [facility] - Serum or Plasm a carbon dioxide, total [moles/volum e] in serum or plasma 38 mmol/ L low: 22mmol /Lhigh : 30mmol /L high Not Available Not Available 07/26/2024 11:45:15 07/27/19 25 07/26/2024 [facility] panel - Serum or Plasm a anion gap in serum or plasma by calculation 14.9 mmol/ L low: 14mmol /Lhigh : 22mmol /L normal Not Available Not Available 07/26/2024 11:45:15 07/27/19 25 07/26/2024 Compr ens ariela Fire[employer] olic 1999 panel - Serum or Plasm a glucose [mass/volume ] in serum or plasma 112 mg/dL low: 70mg/d Lhigh: 99mg/d L high Not Available Not Available 07/26/2024 11:45:15 07/27/19 25 07/26/2024 [facility] ariela metab olic 1999 panel - Serum or Plasm a urea nitrogen [mass or moles/volume ] in serum or plasma 22 mg/dL low: 8mg/dL high: 19mg/d L high Not Available Not Available 07/26/2024 11:45:15 07/27/19 25 07/26/2024 [facility] [employer] ariela [facility] 1999 panel - Serum or Plasm a creatinine [mass/volume ] in serum or plasma 0.59 mg/dL low: 0.66mg /dLhig h: 1.25mg /dL low Not Available Not Available 07/26/2024 11:45:15 07/27/19 25 07/26/2024 [facility] 1999 panel - Serum or Plasm a glomerular filtration rate [volume rate/area] in serum, plasma or blood by based on 1.73 sq M >60 normal Not Available Not Available 11:45:15 07/27/19 25 07/26/2024 [facility] [employer] ariela Fire[facility] 1999 panel - Serum or Plasm a alkaline phosphatase [enzymatic activity/vol ume] in serum or plasma 50 U/L low: 38U/Lh igh: 126U/L normal Not Available Not Available 07/26/2024 11:45:15 07/27/19 25 07/26/2024 [facility] [employer] ariela [facility] 1999 panel - Serum or Plasm a alanine aminotransfe rase [enzymatic activity/vol ume] in serum or plasma 25 U/L low: 0U/Lhi gh: 35U/L normal Not Available Not Available 07/26/2024 11:45:15 07/27/19 25 07/26/2024 [facility] [employer] ariela Fire[facility] 1999 panel - Serum or Plasm a aspartate aminotransfe rase [enzymatic activity/vol ume] in serum or plasma 31 U/L low: 15U/Lh igh: 37U/L normal Not Available Not Available 07/26/2024 11:45:15 07/27/19 25 07/26/2024 [facility] [employer] ariela FireID [facility] 1999 panel - Serum or Plasm a bilirubin.to mikal [mass/volume ] in serum or plasma 0.7 mg/dL low: 0.2mg/ dLhigh : 1.3mg/ dL normal Not Available Not Available 07/26/2024 11:45:15 07/27/19 25 07/26/2024 [facility] [employer] ariela [facility] 2000 panel - Serum or Plasm a calcium [mass/volume ] in serum or plasma 9.1 mg/dL low: 8.4mg/ dLhigh : 10.2mg /dL normal Not Available Not Available 07/26/2024 11:45:15 07/27/19 25 07/26/2024 [facility] 1999 panel - Serum or Plasm a protein [mass/volume ] in serum or plasma 6.4 g/dL low: 6.3g/d Lhigh: 8.2g/d L normal Not Available Not Available 07/26/2024 11:45:15 07/27/19 25 07/26/2024 [facility] 1999 panel - Serum or Plasm a albumin [mass/volume ] in serum or plasma 4.1 g/dL low: 3g/dLh igh: 4.4g/d L normal Not Available Not Available 07/26/2024 11:45:15 07/27/19 25 07/26/2024 [facility] 1999 panel - Serum or Plasm a globulin [mass/volume ] in serum 2.3 g/dL low: 2.6g/d Lhigh: 4.2g/d L low Not Available Not Available 07/26/2024 11:45:15 07/27/19 25 07/26/2024 [place] [address] panel - Serum or Plasm a albumin/glob ulin [mass ratio] in serum or plasma 1.8 ratio low: 1ratio high: 2ratio normal Not Available Not Available 07/26/2024 11:45:15 07/27/19 25 07/26/2024 Magne sium [Mass /volu me] in Serum or Plasm a magnesium [mass/volume ] in serum or plasma 2.3 mg/dL low: 1.6mg/ dLhigh : 2.3mg/ dL normal Not Available Not Available 07/26/2024 11:45:15 07/27/19 25 07/26/2024 Phosp hate [Mass /volu me] in Serum or Plasm a phosphate [mass/volume ] in serum or plasma 3 mg/dL low: 2.5mg/ dLhigh : 4.5mg/ dL normal Not Available Not Available 07/26/2024 11:45:15 07/27/19 25 07/26/2024 [facility] renlula naranjo panel - Blood leukocytes [#/volume] in blood by automated count 9.2 x10'3 /uL low: 4.2x10 '3/uLh igh: 10.8x1 0'3/uL normal Not Available Not Available 07/26/2024 11:45:14 07/27/19 25 07/26/2024 CBC W Auto Diffe renlula al panel - Blood erythrocytes [#/volume] in blood by automated count 3.97 x10'6 /uL low: 3.8x10 '6/uLh igh: 5.2x10 '6/uL normal Not Available Not Available 07/26/2024 11:45:14 07/27/19 25 07/26/2024 CBC W Auto Diffe heydi al panel - Blood hemoglobin [mass/volume ] in blood 11.9 g/dL low: 12g/dL high: 15.6g/ dL low Not Available Not Available 07/26/2024 11:45:14 07/27/19 25 07/26/2024 CBC W Auto Diffe heydi naranjo panel - Blood hematocrit [volume fraction] of blood by automated count 39.5 % low: 35.7%h igh: 45.7% normal Not Available Not Available 07/26/2024 11:45:14 07/27/19 25 07/26/2024 CBC W Auto Diffe heydi al panel - Blood MCV [entitic mean volume] in red blood cells by automated count 99.5 fL low: 82fLhi gh: 99fL high Not Available Not Available 07/26/2024 11:45:14 07/27/19 25 07/26/2024 CBC W Auto Diffe renti marcella panel - Blood MCH [entitic mass] by automated count 30 pg low: 27pghi gh: 33pg normal Not Available Not Available 07/26/2024 11:45:14 07/27/19 25 07/26/2024 CBC W Auto Diffe heydi al panel - Blood MCHC [entitic mass/volume] in red blood cells by automated count 30.1 g/dL low: 31g/dL high: 36g/dL low Not Available Not Available 07/26/2024 11:45:14 07/27/19 25 07/26/2024 CBC W Auto Diffe renti al panel - Blood erythrocyte [distwidth] in red blood cells 12.3 % low: 11.8%h igh: 15.5% normal Not Available Not Available 07/26/2024 11:45:14 07/27/19 25 07/26/2024 CBC W Auto Diffe renti al panel - Blood platelets [#/volume] in blood by automated count 145 x10'3 /uL low: 150x10 '3/uLh igh: 400x10 '3/uL low Not Available Not Available 07/26/2024 11:45:14 07/27/19 25 07/26/2024 CBC W Auto Diffe renti al panel - Blood platelet [entitic mean volume] in blood by automated count 11.1 fL low: 9fLhig h: 12.4fL normal Not Available Not Available 07/26/2024 11:45:14 07/27/19 25 07/26/2024 CBC W Auto Diffe renti al panel - Blood neutrophils/ leukocytes in blood 65.5 % low: 39%hig h: 72% normal Not Available Not Available 07/26/2024 11:45:14 07/27/19 25 07/26/2024 CBC W Auto Diffe renti al panel - Blood lymphocytes/ leukocytes in blood 21.9 % low: 16%hig h: 47% normal Not Available Not Available 07/26/2024 11:45:14 07/27/19 25 07/26/2024 CBC W Auto Diffe renti al panel - Blood monocytes/le ukocytes in blood 12.1 % low: 5%high : 12% high Not Available Not Available 07/26/2024 11:45:14 07/27/19 25 07/26/2024 CBC W Auto Diffe renti al panel - Blood eosinophils [#/volume] in blood 0.1 % low: 1%high : 7% low Not Available Not Available 07/26/2024 11:45:14 07/27/19 25 07/26/2024 CBC W Auto Diffe renti al panel - Blood basophils/le ukocytes in blood 0.1 % low: 0%high : 2% normal Not Available Not Available 07/26/2024 11:45:14 07/27/19 25 07/26/2024 CBC W Auto Diffe renti al panel - Blood immature granulocytes /leukocytes in blood 0.3 % low: 0%high : 0.5% normal Not Available Not Available 07/26/2024 11:45:14 07/27/19 25 07/26/2024 CBC W Auto Diffe renti al panel - Blood neutrophils [#/volume] in blood 5.99 x10'3 /uL low: 1.5x10 '3/uLh igh: 8x10'3 /uL normal Not Available Not Available 07/26/2024 11:45:14 07/27/19 25 07/26/2024 CBC W Auto Diffe renti al panel - Blood lymphocytes [#/volume] in blood 2 x10'3 /uL low: 1.07x1 0'3/uL high: 3.43x1 0'3/uL normal Not Available Not Available 07/26/2024 11:45:14 07/27/19 25 07/26/2024 CBC W Auto Diffe renti al panel - Blood monocytes [#/volume] in blood 1.11 x10'3 /uL low: 0.29x1 0'3/uL high: 0.99x1 0'3/uL high Not Available Not Available 07/26/2024 11:45:14 07/27/19 25 07/26/2024 CBC W Auto Diffe renti al panel - Blood eosinophils [#/volume] in blood 0.01 x10'3 /uL low: 0.02x1 0'3/uL high: 0.53x1 0'3/uL low Not Available Not Available 07/26/2024 11:45:14 07/27/19 25 07/26/2024 CBC W Auto Diffe renti al panel - Blood basophils [#/volume] in blood 0.01 x10'3 /uL low: 0.01x1 0'3/uL high: 0.08x1 0'3/uL normal Not Available Not Available 07/26/2024 11:45:14 07/27/19 25 07/26/2024 CBC W Auto Diffe renti al panel - Blood immature granulocytes [#/volume] in blood 0.03 x10'3 /uL low: 0x10'3 /uLhig h: 0.05x1 0'3/uL normal Not Available Not Available 07/26/2024 11:45:14 07/27/1907/26/2024 CBC W Auto Diffe renti al panel - Blood nucleated erythrocytes /leukocytes [ratio] in blood 0 % high: 0% normal Not Available Not Available 07/26/2024 11:45:14 07/27/19 25 07/26/2024 CBC W Auto Diffe renti al panel - Blood nucleated erythrocytes [#/volume] in blood by automated count 0 x10'3 /uL normal Not Available Not Available 07/27/19 11:45:14 12/23/1912/22/2022 XR, chest No observ ation record ed. [facility] [address] [place], [address], 12/22/2022 05:15:46 12/23/1912/22/2022 CT, abdom en + pelvi s, w/ contr ast No observ ation record ed. [facility] [address] [place], [address], 12/22/2022 08:53:10 12/25/19 23 12/24/2022 XR, chest No observ ation record ed. [address] [place], [address], 12/26/2022 10:27:49 12/25/19 23 12/24/2022 CT, angio gram, chest , w/ contr ast No observ ation record ed. [address] [place], [address], 12/26/2022 10:28:27 01/05/20 23 01/04/2023 XR, chest No observ ation record ed. [facility] [address] [place], [address], 01/04/2023 09:00:36 01/05/20 23 01/04/2023 CT, angio gram, chest , w/ contr ast No observ ation record ed. [address] [place], [address], 01/11/2023 11:26:46 01/06/20 23 01/05/2023 XR, chest No observ ation record ed. [address] [place], [address], 01/11/2023 11:27:42 01/06/2001/05/2023 XR, abdom en No observ ation record ed. [address] [place], [address], 01/11/2023 11:28:05 01/06/2001/05/2023 CT, head, w/o contr ast No observ ation record ed. [address] [place], [address], 01/11/2023 11:28:38 01/11/20 23 01/10/2023 XR, chest No observ ation record ed. [address] [place], [address], 01/11/2023 11:29:34 01/13/2001/12/2023 XR, chest No observ ation record ed. [address] [facility] [address] [place], [address], 01/25/2023 15:00:41 01/19/20 23 01/18/2023 XR, chest No observ ation record ed. [address] [place], [address], 01/25/2023 15:00:51 01/21/20 23 01/20/2023 XR, chest No observ ation record ed. [address] [place], [address], 01/25/2023 15:01:01 05/25/19 XR, chest No observ ation record ed. [address], [place], [address], 05/25/2024 23:11:32 05/25/19 25 jarod verma am No observ ation record ed. [place] [id number] Not Available 2024 23:11:32 07/23/19 25 07/22/2024 XR, chest No observ ation record ed. [address] [place], [address], 07/29/2024 12:40:51 07/24/19 25 07/23/2024 XR, chest No observ ation record ed. [address] [place], [address], 07/29/2024 15:58:33 07/25/19 25 07/24/2024 XR, chest No observ ation record ed. [address] [place], [address], 07/24/2024 13:20:06 07/26/19 25 07/25/2024 XR, chest No observ ation record ed. [address] [place], [address], 08/05/2024 10:45:33 07/27/19 25 07/26/2024 XR, chest No observ ation record ed. [address] [place], [address], 08/05/2024 10:45:46 Result Notes None recorded. Problems Name Problem SNOMED Code Status Onset Date Resolution Date Notes Provider Name and Address Organization Details Recorded Time Backache 116653171 Active Not Available [facility] 2 07:20:31 Anxiety disorder 887844271 Active Not Available [facility] 2 07:20:31 Pressure ulcer of lower back Active Not Available [facility] 2 07:20:31 Acute myocardi al infarcti on of inferola teral wall 12764351 Completed 12/29/2016 Yang Rosales MD Attn: Accounting ,[address] [facility], [place], [address] , [place] [facility] 7 14:50:05 Decrease in appetite 39885808 Active Not Available [facility] 2 07:20:31 Pressure injury of buttock 289206826 Active Not Available [facility] 2 07:20:31 Pressure ulcer stage 2 Active Not Available [facility] 2 07:20:31 [facility] hyperten thierno 26426639 Active Not Available [facility] 2 07:20:31 Pain in left lower limb 418642904 Active Not Available [facility] 2 07:20:31 Pain in right lower limb 324590833 Active Not Available [facility] 2 07:20:31 Acute bronchit is 97470979 Active Not Available [facility] 2 07:20:31 Cough 40666756 Active Not Available [facility] 2 07:20:32 Chronic obstruct ariela pulmonar y disease 44530743 Active 2016 Not Available [facility] 2 07:20:31 History of myocardi al infarcti on 476992643 Active 2016 2015 Not Available [facility] 2 07:20:31 Bronchit is 76134120 Active 2017 Not Available [facility] 2 07:20:31 Tobacco user 067276388 Completed 201708/24/2023 Yang Rosales MD Attn: Accounting ,[address] [facility], [place], [address] , [place] [facility] 4 17:28:25 Depressi ve disorder 60220019 Active 2017 Not Available [facility] 2 07:20:31 Peripher al arterial occlusiv e disease 329218152 Active 2017 Not Available [facility] 2 07:20:31 Neuropat hy 086540946 Active 2017 Not Available [facility] 2 07:20:31 Spasm 02821777 Active 2017 both legs Not Available [facility] 07:20:31 Steatoti c liver disease 070389039 Active 2017 Not Available [facility] 2 07:20:31 Generali zed aches and pains 83233916 Active 2017 Not Available [facility] 2 07:20:31 Hypergly cemia 12505176 Active 2017 Not Available [facility] 2 07:20:31 Active immuniza tion Active 2017 Not Available [facility] 2 07:20:31 Coronary atherosc lerosis 243664643 Active 2018 Not Available [facility] 2 07:20:31 Chronic pain syndrome 007679748 Active 2019 Not Available [facility] 2 07:20:31 Contact dermatit is caused by urushiol from [facility] han 763752558 Active 2020 Not Available [facility] 2 07:20:31 Moderate protein- calorie malnutri tion (weight for age 60-74 percent of standard ) 021880758 Active 2021 Yang Rosales MD Attn: Accounting ,[address] [place], [address] , [facility] - [facility] 2 16:15:53 Cellulit is 676753520 Active 2021 periumbi lical Yang Rosales MD Attn: Accounting ,[address] [place], [address] , [place] [facility] 2 16:26:17 Abdomina l pain 33662534 Active 2021 Yang Rosales MD Attn: Accounting ,[address] [place], [address] , [place] [facility] 2 13:34:10 Insect bite of hand 032647515 Active 2022 Yang Rosales MD Attn: Accounting ,[address] [place], [address] , [place] [facility] 3 16:03:36 Allergic rhinitis 18436655 Active 2022 Yang Rosales MD Attn: Accounting ,[address] [facility], [place], [address] , [place] [facility] 3 16:06:20 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 78304095 Active 2022 Yang Rosales MD Attn: Accounting ,[address] [facility], [place], [address] , [place] [facility] 3 15:55:13 History of acute respirat ory failure 46229194593 252363 Active 2022 Yang Rosales MD Attn: Accounting ,[address] [facility], [place], [address] , [place] [facility] 3 16:43:17 Dependen ce on continuo us suppleme ntal oxygen 91844224704 103 Active 2023 Yang Rosales MD Attn: Accounting ,[address] [facility], [place], [address] , [place] [facility] 4 20:49:35 Upper respirat ory infectio n 38475927 Active 2023 Yang Rosales MD Attn: Accounting ,[address] [facility], [place], [address] , [place] [facility] 4 06:41:09 Memory impairme nt 633564033 Active 2024 Yang Rosales MD Attn: Accounting ,[address] [facility], [place], [address] , [place] [facility] 5 17:52:47 Notes:Some problems listed i n Document: #[id number] could not be added to this patient's chart. Please review this document and add these problems to the patient's chart manually as needed. Problem Notes None recorded. Procedures Surgical History Date Name Laterality Status Provider Name and Address Organization Details Recorded Time Other completed Angel bennett [place] [facility] 09/03/2014 16:27:47 Other completed Angel bennett [place] [facility] 09/03/2014 16:27:47 Imaging Results None recorded. Procedure Notes None recorded. Medical Equipment None Reported. Allergies Allergen ID Allergen Name Allergen Category Reaction Reaction Severity Criticality Documentation Date Start Date Code Code System Note Provider Name and Address Organization Details Recorded Time 86130 Product containin g penicilli n (product) medicatio n itching Not available Not available 09/03/2014 17774 8001 SNOMED Angel echevarria MA null, [place] - [facility] 5 16:27:47 Medications Name Sig Start Date Stop Date Status Note LastModified by Organization Details LastModified Time Prescript ion - Renewal 08/02 completed Script for refill on Oxycodon e. Not Available Not Available Not Available losartan 50 mg tablet Take 1 tablet every day by oral route around the clock for 30 days. 2024 active Not Available Not Available Not Available cyclobenz aprine 10 mg tablet Take 1 tablet 3 times a day by oral route as needed. 09/26 completed Not Available Not Available Not Available Mapap Extra Strength 500 mg tablet Take 2 tablets twice a day by oral route. 08/02 completed Not Available Not Available Not Available hydrocort isone 0.5 % topical cream APPLY A THIN LAYER TO THE AFFECTED AREA(S) BY TOPICAL ROUTE 2 TIMES PER DAY 08/23 completed Not Available Not Available Not Available promethaz ine-DM 6.25 mg-15 mg/5 mL oral syrup Take 5 mL twice a day by oral route as needed. 08/02 completed Not Available Not Available Not Available atorvasta tin 80 mg tablet TAKE 1 TABLET BY MOUTH EVERY DAY IN THE EVENING 2024 active Not Available Not Available Not Avai lable venlafaxi ne ER 37.5 mg capsule,e xtended release 24 hr 04/24 completed Not Available Not Available Not Available prednison e 10 mg tablet active Not Available Not Available Not Available [...] Available azithromy maddi 250 mg tablet TAKE 1 TABLET BY MOUTH DAILY active Not Available Not Available No t Available metoprolo l succinate ER 50 mg tablet,ex tended release 24 hr Take 1 tablet every day by oral route as directed for 30 days. 2024 active Not Available Not Available Not Available hydrocodo ne 5 mg-acetam inophen 325 mg tablet 11/13 completed Not Available Not Available Not Available enalapril maleate 20 mg tablet 07/24 completed Not Available Not Available Not Available prednison e 20 mg tablet TAKE 2 TABLETS BY MOUTH DAILY active Not Available Not Available No t Available clonazepa m 0.5 mg tablet Take [...] Not Available venlafaxi ne 37.5 mg tablet Take 1 tablet twice a day by oral route as directed for 30 days. 2024 active Not Available Not Available Not Available warfarin 5 mg tablet 08/10 completed Not [...] 2 PUFFS BY MOUTH FOUR TIMES DAILY 2024 active Not Available Not Available Not Avai lable fluticaso ne propionat e 50 mcg/actua tion [...] mcg-4.5 mcg/actua tion HFA aerosol inhaler INHALE 2 PUFFS BY MOUTH TWICE DAILY active Not Available [...] completed Not Available Not Available Not Available Spiriva Respimat 2.5 mcg/actua tion solution for inhalatio n INHALE 2 PUFFS BY MOUTH EVERY DAY active Not Available Not Available No t Available Boost High Protein 0.06 gram-1 kcal/mL oral liquid Take 240 mL twice a day by oral route. 2024 active Not Available Not Available Not Avai lable Boost Plus 0.06 gram-1.5 kcal/mL oral liquid Take 240 mL twice a day by oral route. 2024 active Not Available Not Available Not Avai lable metoprolo l tartrate 75 mg tablet 07/13 completed Not Available Not Available Not Available Breztri Aerospher e 160 mcg-9mcg- 4.8mcg/ac tuation HFA aerosol inhaler Inhale 2 puffs twice a day by inhalati on route. active Not Available Not Available No t Available Chest Congestio n Relief DM 10 mg-100 mg/5 mL oral syrup Take 10 mL 4 times a day by oral route. 03/23 completed Not Available Not Available Not Available Vitals Date Recorded Body height Body mass index (BMI) Body weight Heart rate Systolic And Diastolic Provider Name and Address Organization Details Last Updated DateTime 06/11/2024 172.72 cm 15.5 kg/m2 28213.42 g 86 /min 111/73 mm[Hg] Radhika Salazar MA [facility] 06/11/2024 17:27:53 Date Recorded Body height Body mass index (BMI) Body weight Heart rate Oxygen saturation Oxygen saturation in Arterial blood by Pulse oximetry Systolic And Diastolic Provider Name and Address Organization Details Last Updated DateTime 4 172.72 cm 16.6 kg/m2 40047.5 7 g 103 /min 90 % 90 % 126/82 mm[Hg] Dariana Hanley MA [facility] 4 17:01:24 Date Recorded Body height Body mass index (BMI) Body weight Heart rate Oxygen saturation Oxygen saturation in Arterial blood by Pulse oximetry Body temperature Systolic And Diastolic Provider Name and Address Organization Details Last Updated DateTime 3 172.72 cm 17.8 kg/m2 23375.3 1 g 120 /min 94 % 94 % 98 [degF] 126/78 mm[Hg] Dariana Hanley MA [facility] 3 15:03:19 Date Recorded Body height Body mass index (BMI) Body weight Heart rate Systolic And Diastolic Provider Name and Address Organization Details Last Updated DateTime 02/12/2024 172.72 cm 15.7 kg/m2 81225.09 g 98 /min 90/61 mm[Hg] Haydee Blankenship MA [place] [facility] 02/12/2024 17:48:24 Date Recorded Body height Body mass index (BMI) Body weight Body temperature Oxygen saturation Oxygen saturation in Arterial blood by Pulse oximetry Heart rate Systolic And Diastolic Provider Name and Address Organization Details Last Updated DateTime 3 172.72 cm 15.2 kg/m2 30613.2 4 g 98 [degF] 95 % 95 % 139 /min 120/78 mm[Hg] Dariana Hanley MA [place] - [facility] 3 15:13:46 Social History Question Answer Notes LastModified by Laiyaoyao Details LastModified Time Tobacco Smoking Status Former Smoker Dariana Hanley [place] null, [place] [facility] 02/18/2021 15:19:08 What Is Your Level Of Caffeine Consumption? Heavy Information not available 09/03/2014 What Was The Date Of Your Most Recent Tobacco Screening? 06/11/2024 Information not available 06/11/2024 At What Age Did You Start Smoking Tobacco? 15 Information not available 09/03/2014 How Much Tobacco Do You Smoke? 0.5 PPD Information not available 02/05/2019 Has Tobacco Cessation Counseling Been Provided? Yes Information not available 09/26/2022 On What Date Was Tobacco Cessation Counseling Provided? 06/11/2024 Information not available 06/11/2024 How Many Years Have You Smoked Tobacco? 40 Information not available 02/05/2019 Sex: Unknown Functional Status Question Answer Note LastModified by Laiyaoyao Details LastModified Time Do you or have you ever used any other forms of tobacco or nicotine? No Information not available 09/26/2022 What is your level of alcohol consumption? Occasional Information not available 09/03/2014 Mental Status None recorded. Family History Relationship Description Onset Age of this Age Resolved Age Notes LastModified by Organization Details LastModified Time Mother Hypertensive disorder [email or web address] Not available 04/2015 13:08:14 Medical History Condition Response Coronary Artery Disease Y High Blood Pressure Y COPD Y Anxiety Disorder Y Stroke Y High Cholesterol Y Heart Attack (CO) Y Heart Failure Y Gynecological HistoryNo gynecological history recorded. Obstetrics History GPAL:G 0 P 0 0 0 0 Immunizations Vaccine Type Date Status Note Provider Nam e and Address Organization Details Recorded Time Influenza, split virus, quadrivalent, preservative 8 completed Not Available [facility] 04/06/2019 02:42:37 Past Encounters Encounter ID Performer Location Encounter Start Date Encounter Closed Date Diagnosis/Indication Diagnosis SNOMED-CT Code Diagnosis ICD10 Code Diagnosis Note [id number] MD Zina Chavarria (Adult Med) [address] [place] [address] [phone] [id number] 09/03/2014 16:10:47 09/04/2014 09:22:03 Backache [id number] Demonstrat ed back with stretching exercises Anxiety disorder 943239164 [id number] MD Zina Chavarria (Adult Med) [address] [place] [address] [id number] 01/13/2015 16:12:11 01/15/2015 13:58:00 Acute myocardial infarction of inferolateral wall 25170854 I21.19 Decrease in appetite 643 44438 R63.0 Pressure i njury of buttock 954780811 L89.302 Pressure u lcer stage 2 856185903 L89.92 Anxiety disorder 06 F41.9 Essential hypertension 32475778 I10 Backache 811382739 M54.9 Demonstrat ed back with stretching exercises Pain in le ft lower limb 311141721 M79.605 Pain in ri ght lower limb 464202304 M79.604 [id number] MD Zina Chavarria (Adult Med) [address] [place] [address] [id number] 0 04/21/2015 12:07:24 04/21/2015 17:42:34 Pain in left lower limb 620049757 M79.605 Essential hypertension 39616733 I10 Backache 047860638 M54.9 Demonstrat ed back with stretching exercises Anxiety disorder F41.9 Cough 49896641 R05 Decrease in appetite 643 67505 R63.0 [id number] MD Zina Chavarria (Adult Med) [address] [place] [address] 06482-790 0 12/29/2016 13:49:16 12/29/2016 16:01:35 Chronic obstructive pulmonary disease 43178275 J44.9 History of myocardial infarction 337597062 I25.2 Essential hypertension 13363143 I10 [id number] MD Zina Chavarria (Adult Med) [address] [place] [address] 86520-276 0 12/29/2016 13:53:48 12/29/2016 16:40:58 [id number] MD Zina Chavarria (Adult Med) [address] [place] [address] [id number] 03/22/2017 10:47:44 03/22/2017 14:38:21 Chronic obstructive pulmonary disease 47842550 J44.9 Essential hypertension 68024195 I10 Tobacco user 364446498 Z 72.0 Bronchitis 23590441 J40 [id number] MD Zina Chavarria (Adult Med) [address] [place] [address] 82215-847 0 05/03/2017 15:17:13 05/03/2017 16:57:52 Essential hypertension 85947834 I10 Neuropathy 039023429 G62 .9 Will try to manage without meds Depressive disorder 3548 9007 F32.9 [id number] MD Zina Chavarria (Adult Med) [address] [place] [address] [id number] 0 07/24/2017 14:05:04 07/25/2017 11:27:14 Bronchitis 94317318 J40 [id number] MD Zina Chavarria (Adult Med) [address] [place] [address] [phone] 0 08/10/2017 15:32:43 08/15/2017 12:10:28 Generalized aches and pains 37516291 R52 Chronic ob structive pulmonary disease 39750376 J44.9 Bronchitis 59269586 J40 [id number] MD Zina Chavarria (Adult Med) [address] [place] [address] [phone] 11/13/2017 16:49:20 11/14/2017 11:05:18 Generalized aches and pains 99801238 R52 Combine naproxen with acetaminop hen BID Chronic ob structive pulmonary disease 67656178 J44.9 Decrease in appetite 643 31592 R63.0 Hyperglycemia 90380818 R 73.9 [id number] MD Zina Chavarria (Adult Med) [address] [place] [address] 60031-825 0 03/07/2018 15:17:31 03/08/2018 09:48:15 Chronic obstructive pulmonary disease 38862211 J44.9 Bronchitis 42960698 J40 Peripheral arterial occlusive disease 081520350 I73.9 Active immunization 3387 9002 Z23 [id number] MD Zina Chavarria (Adult Med) [address] [place] [address] 05255-535 0 05/31/2018 16:37:31 06/01/2018 09:25:02 History of myocardial infarction 140239758 I25.2 Chronic ob structive pulmonary disease 30999118 J44.9 OK to resume Albuterol nebulizer and atrovent HFA Essential hypertension 98930356 I10 Peripheral arterial occlusive disease 569759282 I73.9 Coronary atherosclerosis 480437112 I25.119 F/U with cardiology post stent placement [id number] [facility] [address] [place] [address] [phone] 0 08/02/2018 16:05:42 08/03/2018 09:30:08 Coronary atherosclerosis 347831843 I25.119 F/U with cardiology post stent placement Peripheral arterial occlusive disease 739974318 I73.9 Discussed importance of smoking cessation. Suggested very gradual decrease to as little as 1 cig /d every 2-3 weeks Depressive disorder 3548 9007 F32.9 Increase venlafaxin e Tobacco user 598070607 Z 72.0 Chronic ob structive pulmonary disease 90060505 J44.9 OK to resume Albuterol nebulizer and atrovent HFA [id number] MD Zina Chavarria (Adult Med) [address] [place] [address] 38656-918 0 11/27/2018 17:07:11 11/28/2018 13:10:18 Neuropathy 146088025 G62.9 Will try to manage without meds Peripheral arterial occlusive disease 335334453 I73.9 Discussed importance of smoking cessation. Suggested very gradual decrease to as little as 1 cig /d every 2-3 weeks Tobacco user 243578139 Z 72.0 Bronchitis 15966931 J40 Decrease in appetite 643 43777 R63.0 boost [id number] MD Zina Chavarria (Adult Med) [address] [place] [address] 88485-725 0 02/05/2019 16:58:39 02/06/2019 11:59:44 Spasm 65036360 R25.2 [id number] MD Zina Chavarria (Adult Med) [address] [place] [address] [id number] 08/05/2019 16:09:59 08/06/2019 14:14:21 Tobacco user 039532890 Z72.0 Chronic ob structive pulmonary disease 22715909 J44.9 OK to resume Albuterol nebulizer and atrovent HFA [id number] MD Zina Chavarria (Adult Med) [address] [place] [address] 02618-599 0 02/19/2020 08:27:58 02/20/2020 13:30:50 Chronic pain syndrome 932714590 G89.4 Advised pt to contact marijuana dispensari es re access to prescribin physicians [id number] MD Zina Chavarria (Adult Med) [address] [place] [address] 27232-346 0 09/30/2020 14:50:47 10/06/2020 15:08:06 Pain in right lower limb 510720385 M79.604 Peripheral arterial occlusive disease 146176223 I73.9 Discussed importance of smoking cessation. Suggested very gradual decrease to as little as 1 cig /d every 2-3 weeks Pain in le ft lower limb 169240787 M79.605 Contact de rmatitis caused by urushiol from [facility] 274020453 L25.5 Improved. Complete prednisone and start antihistam ine [id number] MD Zina Chavarria (Adult Med) [address] [place] [address] 85592-791 0 12/29/2020 15:37:37 01/05/2021 12:45:55 Peripheral arterial occlusive disease 688290171 I73.9 Recent redo of AF bypass. F'U with surg Essential hypertension 28601942 I10 Neuropathy 356736270 G62 .9 Coronary atherosclerosis 569337136 I25.119 F/U with cardiology post stent placement [id number] MD Zina Chavarria (Adult Med) [address] [place] [address] [id number] 0 02/18/2021 15:04:20 02/19/2021 10:33:33 Peripheral arterial occlusive disease 398487013 I73.9 Recent redo of AF bypass. F'U with surg Essential hypertension 47342880 I10 Chronic ob structive pulmonary disease 59545545 J44.9 OK to resume Albuterol nebulizer and atrovent HFA Neuropathy 505573573 G62 .9 Spasm 45903251 R25.2 [id number] MD Zina Chavarria (Adult Med) [address] [place] [address] 50820-196 0 07/13/2021 15:38:29 07/15/2021 05:33:26 Bronchitis 92240334 J40 . Will rx symbicort Coronary atherosclerosis 711856753 I25.119 F/U with cardiology post stent placement Depressive disorder 3548 9007 F32.9 Increase venlafaxin e Essential hypertension 62599510 I10 Chronic ob structive pulmonary disease 22839493 J44.9 Continue ipratropiu m [id number] MD Zina Chavarria (Adult Med) [address] [place] [address] 06910-539 0 11/16/2021 15:56:06 11/17/2021 08:19:08 Chronic obstructive pulmonary disease 11712074 J44.9 Continue ipratropiu m per Dr. Rosales note on 07/13/21. Pt needs script Moderate protein-calorie malnutrition (weight for age 60-74 percent of standard) 429783903 E44.0 Cellulitis 257196632 L03 .90 [id number] MD Zina Chavarria (Adult Med) [address] [place] [address] 99429-202 0 02/01/2022 11:34:25 02/04/2022 11:56:06 Bronchitis 09952502 J40 . Will rx symbicort Chronic ob structive pulmonary disease 44529365 J44.9 Continue ipratropiu m per Dr. Rosales note on 07/13/21. Pt needs script Essential hypertension 68299693 I10 Hyperglycemia 93599537 R 73.9 Neuropathy 232350053 G62 .9 Tobacco user 044661781 Z 72.0 [id number] Lakisha Liriano MD [facility] (Adult Med) [address] [place] [address] 88907-763 0 03/23/2022 14:54:38 03/24/2022 10:48:21 Infection of right ear 2695587527 999872 H66.91 Discussed with patient, she agreed to try med as ordered. F/U with her PCP. [id number] MD Zina Chavarria (Adult Med) [address] [place] [address] 60025-409 0 09/26/2022 14:32:59 09/29/2022 14:35:29 Underweight 890854130 R63.6 Insect bite of hand 2833 07966 S60.561A Abdominal pain 51258046 R10.9 Anxiety disorder 1219335 06 F41.9 Allergic rhinitis 520964 04 J30.9 Chronic ob structive pulmonary disease 30372860 J44.9 Continue ipratropiu m per Dr. Rosales note on 07/13/21. Pt needs script Essential hypertension 72205107 I10 Will do labs on return [id number] MD Zina Chavarria (Adult Med) [address] [place] [address] 12308-792 0 02/22/2023 14:57:14 02/27/2023 16:25:08 Moderate protein-calorie malnutrition (weight for age 60-74 percent of standard) 701911673 E44.0 Thrombosis of arteries of upper extremity 67697918 I74.2 History of acute respiratory failure 2589206631 7146681 Z87.09 [id number] MD Zina Chavarria (Adult Med) [address] [place] [address] 05614-370 0 08/24/2023 16:41:51 08/25/2023 14:40:00 Moderate protein-calorie malnutrition (weight for age 60-74 percent of standard) 120107064 E44.0 Chronic ob structive pulmonary disease 33502580 J44.9 Continue ipratropiu m per Dr. Rosales note on 07/13/21. Pt needs script Bronchitis 29226860 J40 . Will rx symbicort Coronary atherosclerosis 153525676 I25.119 F/U with cardiology post stent placement Dependence on continuous supplemental oxygen 8260532912 9103 Z99.81 Essential hypertension 70359786 I10 pt requesting BP monitor. History of myocardial infarction 490868731 I25.2 Hyperglycemia 13947192 R 73.9 Neuropathy 516493686 G62 .9 Peripheral arterial occlusive disease 040216695 I73.9 Recent redo of AF bypass. F'U with surg Thrombosis of arteries of upper extremity 98663069 I74.2 Allergic rhinitis 993265 04 J30.9 Depressive disorder 7290 8637 F32.9 Increase venlafaxin e [id number] MD Zina Chavarria (Adult Med) [address] [place] [address] 74677-891 0 02/12/2024 17:10:52 02/14/2024 12:16:03 Underweight 365919568 R63.6 Order protein supplement Depressive disorder 9357 7227 F32.9 Refer to [id number] Yang Rosales MD [facility] (Adult Med) [address] [place] [address] 57966-334 0 06/11/2024 17:06:31 06/13/2024 14:50:56 Memory impairment 841865289 R41.3 Moderate protein-calorie malnutrition (weight for age 60-74 percent of standard) 529048446 E44.0 Essential hypertension 73278631 I10 pt requesting BP monitor. Dependence on continuous supplemental oxygen 3351933046 9103 Z99.81 F/U pulmonary Health Concerns Section Related Observation LastModified by Organization Detai ls LastModified Time None Recorded Concern Status LastModified by Organization Details LastModified Time None Recorded Advance Directives Directive None Recorded Payers Insurance Date Sequence Insurance Name Policy Number Policy Cabrera Covered Member ID Cabrera Member ID Guarantor Name 08/12/2024 1 [facility] - DOS ON OR AFTER 20 (MEDICAID REPLACEMENT - HMO) Carly Oliveira [id number] Carly Oliveira 08/24/2023 1 [facility] - [facility] PRIOR TO 09/17/2020 (MEDICAID REPLACEMENT - HMO) Carly Oliveira [id number] Carly Oliveira OBGyn Episode No OBEpisode recorded.
--- OUTSIDE RECORDS SUMMARY | 2024-10-14 12:17 | XMS_ITS | Data Portability ---
Author Organization [place] - [facility] [employer], Main Office Address [address] [place] [address] Assessment Encounter Date Assessment Date Assessment LastModified by Organization Details LastModified Time 06/03/2024 06/03/2024 Time spent with patient included: preparing to see patient by reviewing tests, obtaining and reviewing history, medical examination and evaluation, counseling and educating the patient, ordering medications and tests, documenting clinical information in EHR, independently interpreting results and communicating results to the patient for a total of 50 minutes. Not available 06/03/2024 13:24:07 07/31/2024 07/31/2024 Time spent with patient included: preparing to see patient by reviewing tests, obtaining and reviewing history, medical examination and evaluation, counseling and educating the patient, ordering medications and tests, documenting clinical information in EHR, independently interpreting results and communicating results to the patient for a total of 45 minutes. Not available 07/31/2024 16:14:25 Plan of Treatment Reminders Order Date Submit Date Provider Last Modified By Organization Details Last Modified Time Details Appointments Any 15 2024 02:00P Genia Sheth NP Not available Not available Not available Lab alpha-1-a ntitrypsi n (aat) phenotype , serum 2024 [email or web address] [place] [address] (Lab), [address] [place], [address], 06/19/2024 10:39:55 BNP (B-type natriuret ic peptide), serum or plasma 2024 025 [facility] [address] [place], [address], 06/03/2024 17:55:33 ige, total, serum [address] (Lab), [address] [place], [address], 06/19/2024 10:39:55 tb (M tuberculo sis), ifn-gamma samantha, blood [address] (Lab), [address] [place], [address], 06/19/2024 10:39:[address] s 1+2+3+4, serum [address] (Lab), [address] [place], [address], 06/19/2024 10:39:55 respirato ry allergen panel, [facility] A, serum [address] (Lab), [address] [place], [address], 06/19/2024 10:39:56 respirato ry allergen panel - [facility] b [address] (Lab), [address] [place], [address], 06/19/2024 10:39:56 eosinophi ls, quant, blood [address] (Lab), [address] [place], [address], 06/19/2024 10:39:56 Referral None recorded. Procedures None recorded. Surgeries None recorded. Imaging CT, chest, w/o contrast [email or web address] [place] [address] ([facility]), [address] [place], [address], 06/12/2024 12:08:11 Medication Orders Breztri Aerospher e 160 mcg-9mcg- 4.8mcg/ac tuation HFA aerosol inhaler 2024 025 [id number], [address], [place], [place], [id number], 07/31/2024 15:45:04 Breztri Aerospher e 160 mcg-9mcg- 4.8mcg/ac tuation HFA aerosol inhaler 2024 025 [facility] #[id number], [address], [place], [place], [id number], 06/03/2024 12:11:49 albuterol sulfate HFA 90 mcg/actua tion aerosol inhaler 2024 025 [facility] #[id number], [address], [place], [place], [id number], 06/03/2024 12:11:50 Patient TargetsNo targets recorded. Patient Instructions Encounter Date Encounter Id Patient Instructions Last Modified By Organization Details Last Modified Time 06/03/2024 [id number] 6 minute walk test* АННА Not available 06/11/2024 10:11:26 complete PFT w/ post bronchodilator spirometry* Not available 07/09/2024 17:01:40 Reason for Referral None Reported. Results Created Date Observation Date Name Description Value Unit Range Abnormal Flag Note LastModifiedBy Organization Detail LastModifiedTime 06/26/1906/25/2024 CT, chest , w/o contr ast No observ ation record ed. [email or web address] [facility] [address] [place], [address], 06/27/2024 15:30:35 07/18/19 25 07/16/2024 six minut e walk test* No observ ation record ed. [facility] ([facility]) [address] [facility] [place], [address], 07/18/2024 16:32:53 07/18/1907/16/2024 pre/p [facility] hodil ator randal metry * No observ ation record ed. Not Available 2024 16:32:54 07/31/19 25 07/25/2024 6 minut e walk test* No observ ation record ed. [facility] Not Available 2024 09:46:30 07/31/19 25 07/23/2024 XR, chest , 1 view No observ ation record ed. [facility] Not Available 2024 09:46:32 07/31/1907/24/2024 XR, chest , 1 view No observ ation record ed. [facility]CODE Not Available 2024 09:46:32 07/31/19 25 07/25/2024 XR, chest , 1 view No observ ation record ed. [facility]CODE Not Available 2024 09:46:32 07/31/19 25 07/26/2024 XR, chest , 1 view No observ ation record ed. [facility] Not Available 2024 09:46:32 07/31/19 25 07/22/2024 XR, chest , 1 view No observ ation record ed. [facility] Not Available 2024 09:46:32 Result Notes None recorded. Problems Name Problem SNOMED Code Status Onset Date Resolution Date Notes Provider Name and Address Organization Details Recorded Time Severe chronic obstructive pulmonary disease 773989029 Active 2024 Conor Palmer MD [address], [address], [place], [address], [employer] 5 19:47:42 Chronic obstructive pulmonary disease 88115030 Active 2024 Luz Sheth NP [address] [facility], [address], [place], [address], [employer] [facility] [employer] 15:44:26 Acute hypoxemic and hypercapnic respiratory failure 881097976 Active 2024 Luz Sheth NP [address] [facility], [address], [place], [address], [facility] [employer] [facility] [employer] [facility] 5 16:16:20 Chronic hypoxemic respiratory failure 887417101 Active 2024 Luz Sheth NP [address] [facility], [address], [place], [address], [facility] [employer] [facility] [employer] [facility] 5 15:10:34 Notes:Medical History: CVA D epression/Anxiety Rhinitis Nicotine use Very severe COPD 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 Medical Equipment None Reported. Allergies Allergen ID Allergen Name Allergen Category Reaction Reaction Severity Criticality Documentation Date Start Date Code Code System Note Provider Name and Address Organization Details Recorded Time 26285 Product containin g penicilli n (product) medicatio n itching severe Not available 05/18/2022 40609 8001 SNOMED Not Available [facility] 3 16:29:05 Medications Name Sig Start Date Stop Date Status Note LastModified by Organization Details LastModified Time losartan 50 mg tablet TAKE 1 TABLET BY MOUTH EVERY DAY active Not Available Not Available No t Available atorvastati n 80 mg tablet TAKE 1 TABLET BY MOUTH EVERY DAY IN THE EVENING active Not Available Not Available No t Available prednisone 10 mg tablet 06/03 completed Not Available Not Available Not Available ipratropium 0.5 mg-albutero l 3 mg (2.5 mg base)/3 mL nebulizatio n soln USE 1 VIAL VIA NEBULIZER THREE TIMES DAILY active Not Available Not Available No t Available azithromyci n 250 mg tablet TAKE 1 TABLET BY MOUTH DAILY 07/31 completed Not Available Not Available Not Available fluconazole 150 mg tablet TAKE 1 TABLET PO ONCE active Not Available Not Available No t Available metoprolol succinate ER 50 mg tablet,exte nded release 24 hr TAKE 1 TABLET BY MOUTH EVERY DAY active Not Available Not Available No t Available enalapril maleate 20 mg tablet 06/03 completed Not Available Not Available Not Available prednisone 20 mg tablet TAKE 2 TABLETS BY MOUTH DAILY 07/31 completed Not Available Not Available Not Available simvastatin 40 mg tablet 06/03 completed Not Available Not Available Not Available venlafaxine 37.5 mg tablet TAKE 1 TABLET BY MOUTH TWICE DAILY active Not Available Not Available No t Available metoprolol tartrate 50 mg tablet active Not Available Not Available No t Available nicotine 21 mg/24 hr daily transdermal patch 06/03 completed Not Available Not Available Not Available gabapentin 300 mg capsule TAKE 1 CAPSULE BY MOUTH THREE TIMES DAILY active Not Available Not Available No t Available levofloxaci n 500 mg tablet TK 1 T PO ONCE D active Not Available Not Available No t Available methylpredn isolone 4 mg tablets in a dose pack TK UTD active Not Available Not Available Not Available albuterol sulfate HFA 90 mcg/actuati on aerosol inhaler INHALE 2 PUFFS BY MOUTH EVERY 4 HOURS NEEDED FOR SHORTNESS OF BREATH OR WHEEZING active Not Available Not Available No t Available fluticasone propionate 50 mcg/actuati on nasal spray,suspe nsion SHAKE LIQUID AND USE 2 SPRAYS IN EACH NOSTRIL DAILY 06/03 completed Not Available Not Available Not Available loratadine 10 mg tablet TAKE 1 TABLET BY MOUTH ONCE DAILY 06/03 completed Not Available Not Available Not Available Baby Aspirin 06/03 completed Not Available Not Available Not Available Symbicort 160 mcg-4.5 mcg/actuati on HFA aerosol inhaler INHALE 2 PUFFS BY MOUTH TWICE DAILY active Not Available Not Available No t Available Eliquis 5 mg tablet TAKE 1 TABLET BY MOUTH TWICE DAILY active Not Available Not Available No t Available Spiriva Respimat 2.5 mcg/actuati on solution for inhalation INHALE 2 PUFFS BY MOUTH EVERY DAY active Not Available Not Available No t Available Breztri Aerosphere 160 mcg-9mcg-4. 8mcg/actuat ion HFA aerosol inhaler Inhale by inhalatio n route for 30 days. active Not Available Not Available No t Available Vitals Date Recorded Body weight Body mass index (BMI) Body height Body temperature Heart rate Oxygen saturation Oxygen saturation in Arterial blood by Pulse oximetry Inhaled oxygen flow rate Systolic And Diastolic Provider Name and Address Organization Details Last Updated DateTime 5 88574.0 5 g 14.9 kg/m2 172.72 cm 98.2 [degF] 95 /min 90 % 90 % 3 L/min 124/70 mm[Hg] Griselda Peralta MA [employer] 11:46:28 Date Recorded Body height Body mass index (BMI) Body weight Body temperature Heart rate Oxygen saturation Oxygen saturation in Arterial blood by Pulse oximetry Inhaled oxygen flow rate Systolic And Diastolic Provider Name and Address Organization Details Last Updated DateTime 172.72 cm 15.7 kg/m2 84800.0 1 g 97.6 [degF] 103 /min 88 % 88 % 3 L/min 106/64 mm[Hg] Griselda Peralta MA [employer] 15:30:53 Social History Question Answer Notes LastModified by Organizat ion Details LastModified Time Tobacco Smoking Status Former Smoker Griselda Peralta MA [facility] [employer] [facility] [employer] 06/03/2024 11:41:19 What Is Your Level Of Caffeine Consumption? Occasional Information not available 06/03/2024 In The 14 Days Before Symptom Onset, Have You Had Close Contact With A Laboratory-confir med COVID-19 While That Case Was Ill? No Information not available 06/03/2024 In The 14 Days Before Symptom Onset, Have You Had Close Contact With A Person Who Is Under Investigation For COVID-19 While That Person Was Ill? No Information not available 06/03/2024 Do You Have An Electrostatic Air Filter? No Information not available 06/03/2024 When Did You Quit Smoking? 1-5yearssincel astcigarette Information not available 06/03/2024 Do You Have A Humidifier? No Information not available 06/03/2024 Do You Have Moisture Problems In Your Home? No Information not available 06/03/2024 What Was The Date Of Your Most Recent Tobacco Screening? 07/31/2024 Information not available 07/31/2024 Do You Have Any Pets? Yes Information not available 06/03/2024 Do You Use Your Seat Belt Or Car Seat Routinely? Yes Information not available 06/03/2024 Do You Have Smoke And Carbon Monoxide Detectors In Your Home? Yes Information not available 06/03/2024 Are You Passively Exposed To Smoke? No Information no t available 06/03/2024 Do You Use Sunscreen Routinely? No Information not available 06/03/2024 Have You Recently Traveled Abroad? No Information not available 06/03/2024 Sex: Unknown Functional Status Question Answer Note LastModified by Organization D etails LastModified Time What is your level of alcohol consumption? None Information not available 06/03/2024 Have you been exposed to chemicals or toxins? Yes Information not available 06/03/2024 Mental Status Question Answer Note LastModified by Organization D etails LastModified Time Do you feel stressed (tense, restless, nervous, or anxious, or unable to sleep at night)? [id number] Information not available 06/03/2024 Family History Relationship Description Onset Age of this Age Resolved Age Notes LastModified by Organization Details LastModified Time Mother Hypertensive disorder [id number] Not available 05/18/2022 16:27:15 Medical History No medical history recorded. Gynecological HistoryNo gynecological history recorded. Obstetrics History GPAL:G 0 P 0 0 0 0 Immunizations Vaccine Type Date Status Note Provider Nam e and Address Organization Details Recorded Time pneumococcal polysaccharide PPV23 completed Luz Sheth NP [address] [facility] [address], [place], [address], [facility] [employer] 08/01/2024 09:17:45 Past Encounters Encounter ID Performer Location Encounter Start Date Encounter Closed Date Diagnosis/Indication Diagnosis SNOMED-CT Code Diagnosis ICD10 Code Diagnosis Note [id number] Luz Sheth NP [facility] [place] [address] [facility] [address] [place] [address] 06/03/2024 11:20:45 06/07/2024 15:00:01 Chronic obstructive pulmonary disease 52505727 J44.9 Review of hx shows COPD-O2 dependence -patient has lost 40 pounds over the past year-2021 CT noted possible fibrosis-w ill repeat CTPatient will stop her Duoneb use daily and use prn-albute rol inhaler to use for breakthrou ghSample Breztri-pa tient is cachectic with weight loss-O2 sats low on 3L NC-will rx Breztri-pa tient would benefit from triple therapy and needs to start immediatel y-has been hospitaliz ed x 2 past yearSon will consider [facility] follow-[facility] respir[facility] y care Dyspnea on exertion 6084 5006 R06.09 Lab work todayCAT-3 2Mmrc-4PFT for baselineAw are to use Albuterol inhaler as needed-ok to use when sobPatient is very weak and noted sob with sitting-so n notes confusion at timesfollo w-up once testing is complete-s ooner for any changes in breathing and increase use of inhaler Multiple n odules of lung 327185840 R91.[address] due to hz of nodules-if able to get old records showing a recent CT will consider Dc of order Dependence on supplemental oxygen 3928655736 07 Z99.81 Patient sits at 90% at 3L NC resting-re sp rate of 24 [id number] Luz Sheth NP [facility] Pulmon[facility] [place] [phone] 07/31/2024 15:16:31 08/20/2024 07:06:38 Chronic obstructive pulmonary disease 96526556 J44.9 PFT 07/15/24 FEV1 0.29 L (11%), BD 100 mL = 53%CAT-29R eview of hx shows COPD-O2 dependence -patient has lost 40 pounds over the past year-2021 CT noted possible fibrosisRX -Breztri-p atient has severe disease and would benefit from triple therapy-th is would also decrease issues with compliance . Son is aware to call office if any issues with getting rx.Can continue duoneb until rx filled Pneumococc al vaccination given 590830279 Z23 Dependence on supplemental oxygen 5267665965 07 Z99.81 Patient sits at 88-90% at 3L NC resting-re sp rate of 24 at rest Chronic hy poxemic respiratory failure 359140324 J96.11 Rx for non-invasi ve ventilator through IV resmed sent via faxPatient is a 63-year-ol d female with a history of chronic pulmonary disease who was recently hospitaliz ed for acute respirator y failure with both hypoxia and hypercapni a.Over the past year, the patient has experience d a 40-pound unintentio nal weight loss, consistent with a decline in respirator y reserve and increased metabolic demand from chronic illness. A chest CT from 2021 noted possible pulmonary fibrosis, which is progressiv e and contribute s to worsening gas exchange and ventilator y insufficie ncy.At the clinic visit today, the patient was observed to have oxygen saturation s of 88 90% while on 3L nasal cannula O2 therapy, indicating persistent hypoxemia despite maximal oxygen supplement ation. This suggests underlying ventilator y failure rather than isolated hypoxemia, supporting the need for nocturnal and potentiall y daytime ventilator y support.Gi darrion the patient s documented hypercapni a, history of hospitaliz ation for acute-on-c hronic respirator y failure, evidence of underlying structural lung disease, and failure to maintain adequate oxygenatio n on high-flow oxygen, it is medically necessary to initiate home non-invasi ve ventilatio n to improve gas exchange, reduce the risk of future hospitaliz ations, and stabilize her chronic respirator y failure.Th is interventi on is critical to managing her chronic respirator y insufficie ncy and preventing further decline. It meets the criteria for state insurance approval under the indication of chronic respirator y failure with documented hypercapni a and hypoxia, unresponsi ve to oxygen therapy alone. Health Concerns Section Related Observation LastModified by Organization Detai ls LastModified Time None Recorded Concern Status LastModified by Organization Details LastModified Time None Recorded Advance Directives Directive None Recorded Payers Insurance Date Sequence Insurance Name Policy Number Policy Cabrera Covered Member ID Cabrera Member ID Guarantor Name 09/30/2024 1 [facility] - DOS ON OR AFTER 20 (MEDICAID REPLACEMENT - HMO) Carly Oliveira [id number] Carly Oliveira 08/01/2024 1 [facility] - DOS PRIOR TO 2020 (MEDICAID REPLACEMENT - HMO) Carly Oliveira [id number] Carly Oliveira OBGyn Episode No OBEpisode recorded.
[2024-10-14 12:36] LABS: Alanine Aminotransferase 23 U/L (6-35); Albumin Level 4.2 g/dL (3.5-5.1); Alkaline Phosphatase 51 U/L (38-126); Aspartate Amino Transferase 39 U/L (14-36); Bilirubin,Total 1.2 mg/dL (0.2-1.3); Blood Urea Nitrogen 19 mg/dL (7-17); Calcium 10.7 mg/dL (8.4-10.2); Chloride 93 mmol/L (98-107); Estimated Glomerular Filt Rate > 60; Glucose 139 mg/dL (65-110); Potassium 4.7 mmol/L (3.4-5.0); Sodium 140 mmol/L (137-145); Total Protein 7.2 g/dL (6.3-8.2)
[2024-10-14 12:47] LABS: Carbon Dioxide > 40 mmol/L (22-30)
[2024-10-14 13:21] LABS: Alveolar/Arterial O2 Gradient 81.5 mmHg; Fractional Inspired Oxygen 36 %; HCO3 ABG 42.9 mEq/l (22.0-26.0); Oxygen Content ABG 17.4 %vol (16.0-22.0); Oxygen Saturation ABG 95.4 % (95.0-100.0); PO2 ABG 84.2 mmHg (80.0-100.0); PO2 FiO2 Ratio Arterial Blood 2.34 %
[2024-10-14 13:23] LABS: Liters per Minute 4.0 LPM; Modified Allen's Test Pass; PCO2 ABG 78.4 mmHg (35.0-45.0); Site Drawn RIGHT RADIAL
[2024-10-14 14:45] LABS: Band Neutrophils Percent 0 % (0-6)
[2024-10-14 14:46] LABS: Hypochromasia 1+; Schistocytes None Seen
[2024-10-14 14:47] LABS: Anisocytosis 1+
[2024-10-14 16:01] LABS: Alveolar/Arterial O2 Gradient 39.8 mmHg; Carboxyhemoglobin 0.3 % THb (0-2.0); Fractional Inspired Oxygen 30 %; HCO3 ABG 42.4 mEq/l (22.0-26.0); Methemoglobin ABG 0.5 %THb (0-1.5); Oxygen Content ABG 17.0 %vol (16.0-22.0); Oxygen Saturation ABG 95.3 % (95.0-100.0); PO2 ABG 83.4 mmHg (80.0-100.0); PO2 FiO2 Ratio Arterial Blood 2.78 %; Reduced Hemoglobin 4.1 %THb (0-5.0)
[2024-10-14 16:03] LABS: Modified Allen's Test Pass; PCO2 ABG 77.2 mmHg (35.0-45.0); Site Drawn RIGHT RADIAL
--- NOTE | 2024-10-14 18:00 | ED.SOB ---
HPI - SOB/Dyspnea General Chief Complaint: Shortness of Breath/Dyspnea Stated Complaint: SOB Time Seen by Provider: 10/14/24 12:02 Source: patient Mode of arrival: EMS Limitations: no limitations History of Present Illness HPI Narrative: 64-year-old with a history of COPD on 3 L of home oxygen was brought in from home with the complaints of shortness of breath for past few days. Patient states that she has been using inhalers with minimal relief. No history of cough or fever or chills. She also complains of numbness to her lower extremities and she wants to see a neurologist if possible. MD elicited complaint: shortness of breath Pertinent past history: COPD Onset (ago): week(s) (1) Timing: constant Exacerbating factors: nothing Relieving factors: oxygen and bronchodilators Known history of: COPD Associated symptoms: denies other symptoms Related Data Home Medications ?Medication ?Instructions ?Recorded ?Confirmed ?Last Taken ?Type albuterol sulfate 90 mcg/actuation 2 puff inhalation Q6H PRN sob 03/27/23 10/14/24 10/14/24 History aerosol inhaler apixaban 5 mg tablet (Eliquis) 5 mg PO BID 03/27/23 10/14/24 10/13/24 History atorvastatin 80 mg tablet 80 mg PO HS 03/27/23 10/14/24 10/13/24 History budesonide 0.5 mg/2 mL suspension 0.5 mg inhalation BID 03/27/23 10/14/24 10/13/24 History for nebulization gabapentin 300 mg capsule 300 mg PO TID 03/27/23 10/14/24 10/13/24 History losartan 50 mg tablet 50 mg PO DAILY 03/27/23 10/14/24 10/13/24 History metoprolol succinate 50 mg 50 mg PO DAILY 03/27/23 10/14/24 10/13/24 History tablet,extended release 24 hr venlafaxine 37.5 mg tablet 37.5 mg PO BID 03/27/23 10/14/24 10/13/24 History Allergies Allergy/AdvReac Type Severity Reaction Status Date / Time Penicillins Allergy Other Verified 10/14/24 16:46 Review of Systems Review of Systems: All systems reviewed & are unremarkable except as noted in HPI and below Constitutional: Constitutional: Reports no additional constitutional complaints Eyes: Eyes: Reports no additional eye complaints ENT: Reports system reviewed and no additional complaints, except as documented Cardiovascular: Cardiovascular: Reports no additional cardiovascular complaints Respiratory: Respiratory: Reports as per HPI Gastrointestinal: Gastrointestinal: Reports no additional gastrointestinal complaints Musculoskeletal: Musculoskeletal: Reports no additional musculoskeletal complaints Integumentary/Breasts: Skin/Breast: Reports system reviewed and no additional complaints, except as docu PMFSH Past Medical History Medical History PAD (peripheral artery disease) Coronary disease Atrial fibrillation COPD (chronic obstructive pulmonary disease) Anxiety Chronic respiratory failure Hypertension Depression Surgical History Surgical History Hx of peripheral artery bypass Family History Family History Father Mesothelioma Mother Heart disease Social History Social History Social History: Patient still smoking up to 3 cigarettes per day. No alcohol or drug use. Full code. Lives at home with son, dtr-in-law and grandchild. Full code. She nominates her son to be the one who would make medical decisions for her if she is unable. Smoking status: Former smoker Tobacco type: cigarettes Alcohol intake: never Substance use: never Substance use type: does not use Do You Feel Safe in your Home?: Yes Lack of Transportation: No Lack of Food: Never True Current Housing: I Have Housing Concerned About Future Housing: No Difficulty Paying Gas/Electric Bills: No Difficulty Paying for Meds: No Currently Unemployed: No Education: High School Diploma/GED Difficulty w/ Childcare or Family Care: No Spiritual care concerns: No Exam Narrative: GENERAL: Well-appearing, well-nourished, and in no acute distress. HEAD: Normocephalic, atraumatic. EYES: PERRLA and EOMI. ENT: Nares clear, no rhinorrhea or epistaxis. Mucous membranes moist. NECK: Supple. CHEST: Decreased air entry, mild wheeze bilaterally. No respiratory distress. HEART: Regular rate and rhythm. No murmur heard. Normal peripheral pulses. ABDOMEN: Soft, nontender, nondistended, normal active bowel sounds. EXTREMITIES: Normal range of motion. No edema. SKIN: Warm, dry, no rash. NEURO: No focal deficits. Alert and oriented x3. PSYCH: Normal mood and affect. Course Course Emergency Course: Notified patient about her lab work, x-ray findings. ABG consistent with the respiratory failure with place her on BiPAP to her neb treatment. Patient agreeable with admission. Discussed with the hospitalist. Vital Signs Vital signs: Vital Signs Temperature 36.3 C L 10/14/24 11:48 Pulse Rate 111 H 10/14/24 11:48 Respiratory Rate 24 H 10/14/24 11:48 Blood Pressure 158/82 H 10/14/24 11:48 Pulse Oximetry 95 10/14/24 11:48 Oxygen Delivery Nasal Cannula 10/14/24 11:48 Oxygen Flow Rate 4 10/14/24 11:48 Temperature 36.3 C L 10/14/24 11:48 Pulse Rate 115 H 10/14/24 17:08 Respiratory Rate 19 10/14/24 16:45 Blood Pressure 141/71 H 10/14/24 16:45 Pulse Oximetry 96 10/14/24 17:08 Oxygen Delivery Nasal Cannula 10/14/24 17:08 Oxygen Flow Rate 4 10/14/24 12:00 MDM - SOB/Dyspnea Differential Diagnosis Differential diagnosis: Likely acute exacerbation of chronic obstructive airways disease, congestive heart failure and community acquired pneumonia Medical Records Attestation: I reviewed the patient's medical records. Lab Data Attestation: I reviewed the patient's lab results. 10/14/24 12:05 10/14/24 12:05 Labs: Lab Results 10/14/24 10/14/24 Range/Units 12:05 15:50 WBC 6.4 (4.5-10.0) K/mm3 RBC 4.06 L (4.2-5.4) M/mm3 Hgb 11.8 L (12.0-15.0) g/dL Hct 40.2 (37.0-47.0) % MCV 99.0 (80-100) fl MCH 29.1 (26-34) pg MCHC 29.4 L (32-36) g/dl RDW 12.8 (11.5-14.5) % Plt Count 190 (150-375) k/mm3 MPV 9.3 (7.4-10.4) fl Immature Gran % (Auto) 0.5 (0-0.5) % Neut % (Auto) 73.2 H (45.5-73.1) % Lymph % (Auto) 18.3 (18.3-44.2) % [place] % (Auto) 6.6 (2.6-8.5) % Eos % (Auto) 0.9 (0-4.4) % Baso % (Auto) 0.5 (0.2-1.2) % Lymph # (Auto) 1.17 (0.9-3.2) K/mm3 [place] # (Auto) 0.4 (0.1-0.6) K/mm3 Eos # (Auto) 0.1 (0-0.3) K/mm3 Baso # (Auto) 0.0 (0.0-0.1) K/mm3 Abs Immat Gran (auto) 0.03 (0.00-0.031) K/mm3 Absolute Neuts (auto) 4.7 (1.3-6.7) K/mm3 Absolute Nucleated RBC 0.000 (0.0-0.012) K/mm3 Band Neutrophils % 0 (0-6) % Nucleated RBC % 0.0 (0.0-0.2) % Platelet Estimate Adequate (Adequate) Hypochromasia 1+ Anisocytosis 1+ Schistocytes None seen Methemoglobin 0.5 (0-1.5) %THb Expiratory Pressure 6 cmH2O Inspiratory Pressure 12 cmH2O Sodium 140 (137-145) mmol/L Potassium 4.7 (3.4-5.0) mmol/L Chloride 93 L (98-107) mmol/L Carbon Dioxide > 40 H (22-30) mmol/L Anion Gap (4-12) mmol/L BUN 19 H D (7-17) mg/dL Creatinine 0.52 L (0.7-1.0) mg/dL Estim Creat Clear Calc Not Reportable Estimated GFR > 60 (59 - ) Glucose 139 H (65-110) mg/dL Calcium 10.7 H (8.4-10.2) mg/dL Total Bilirubin 1.2 (0.2-1.3) mg/dL AST 39 H (14-36) U/L ALT 23 (6-35) U/L Alkaline Phosphatase 51 (38-126) U/L Total Protein 7.2 (6.3-8.2) g/dL Albumin 4.2 (3.5-5.1) g/dL ABG Data ABG results: 10/14/24 10/14/24 13:10 15:50 Puncture Site Right radial Right radial ABG pH 7.356 7.358 ABG pCO2 78.4 H* 77.2 H* ABG pO2 84.2 83.4 ABG PO2/FiO2 Ratio 2.34 2.78 ABG HCO3 42.9 H 42.4 H ABG O2 Saturation 95.4 95.3 ABG O2 Content 17.4 17.0 ABG Base Excess 13.9 13.6 A-a Gradient 81.5 39.8 Oxyhemoglobin 95.6 95.1 Carboxyhemoglobin 0.3 Reduced Hemoglobin 4.1 Total Hemoglobin 12.9 12.7 O2 Delivery Device Nasal cannula Bipap O2 Liters/Min 4.0 Not Reportable FiO2 36 30 Imaging Data Radiologist's impression: ITS Impressions Chest X-Ray 10/14/24 12:53 Impression: 1: No acute cardiopulmonary disease. 2: Coarse bilateral breast calcifications. Recommend correlation with diagnostic bilateral mammogram and possible additional ultrasound. ECG Data EKG #1: ECG completion date: 10/14/24 ECG completion time: 12:02 EKG Interpretation: tachycardia (107), no ectopy, no ST changes and normal QRS Critical Care Time Critical Care Time Critical Care Time: Yes Total Critical Care Time: 45 Discharge Plan Discharge Clinical Impression: Acute hypercapnic respiratory failure Patient Disposition: Still a Patient Condition: Stable Patient Language: [place]er Prescriptions: No Action metoprolol succinate 50 mg tablet extended release 24 hr 50 mg PO DAILY venlafaxine 37.5 mg tablet 37.5 mg PO BID gabapentin 300 mg capsule 300 mg PO TID budesonide 0.5 mg/2 mL suspension for nebulization 0.5 mg inhalation BID albuterol sulfate 90 mcg/actuation HFA aerosol inhaler 2 puff INHALATION Q6H PRN (Reason: sob) Eliquis 5 mg tablet 5 mg PO BID losartan 50 mg tablet 50 mg PO DAILY atorvastatin 80 mg tablet 80 mg PO HS Trelegy Ellipta 100-62.5-25 mcg blister with device 1 inh inhalation DAILY 30 Days Qty: 60 0RF Follow-up/Referrals: UNKNOWN,DOCTOR [Primary Care Provider] - Time of Disposition: 18:00
[2024-10-14] MEDS: DOXYCYCLINE IV 100 MG in SODIUM CHLORIDE 0.9% IV 100 ML IVPB (18:50)
[2024-10-14] MEDS: SODIUM CHLORIDE 0.9% IV 1,000 ML 125 ML IV CONT (19:49)
--- NOTE | 2024-10-14 21:19 | ADMGEN ---
This patient, Carly Oliveira, was admitted to IMU Room 201-01 via bed with one tech and no issues. Patient/family oriented to hospital policies and general routines including ID bracelet, bed and alarms, visiting hours, pain management, procedures, bathroom and other care routines, personal items, smoking policy, room service/diet, and visiting hours. Information on how to activate the Rapid Response Team has been discussed. Patient/Family are encouraged to report perceived risks to care and to ask questions if they do not understand what they are told or what they should do.
--- NOTE | 2024-10-14 21:59 | P.HP_ITS ---
H&P: HPI History of Present Illness Date/Time: 10/14/24 21:59 Chief Complaint: Shortness of breath Narrative: 64-year-old female with a history of atrial fibrillation on Eliquis, COPD with chronic respiratory failure with hypoxia and hypercarbia, CAD, PAD, anxiety and depression, hypertension. She has had shortness of breath for a few days. She has been using her inhalers and nebulizers. She reports she has had some difficulty remembering things and cannot detail what controller medications he takes. She has had a cough with green sputum production. She felt chills at some time. Denies chest pain, nausea vomiting, diarrhea, sick contacts, recent travel. Denies smoking but reports vaping ABG in the ER performed demonstrated pH 7.35 a, pCO2 77, bicarb 42.4 on BiPAP. Chest x-ray with coarse bilateral breast calcifications but no focal opacities a pulmonary edema identified. She received Solu-Medrol 62.5 IV x1, DuoNeb x1, doxycycline 100 mg x 1. She was shortly after weaned off of BiPAP back to her usual 3 L and was resting comfortably, reporting she was 50% improved already. Review of Systems Review of Systems: All systems reviewed & are unremarkable except as noted in HPI and below (Subjective/HPI) [facility] Past Medical History Medical History PAD (peripheral artery disease) Coronary disease Atrial fibrillation COPD (chronic obstructive pulmonary disease) Anxiety Chronic respiratory failure Hypertension Depression Surgical History Surgical History Hx of peripheral artery bypass Family History Family History Father Mesothelioma Mother Heart disease Social History Social History Social History: Patient still smoking up to 3 cigarettes per day. No alcohol or drug use. Full code. Lives at home with son, dtr-in-law and grandchild. Full code. She nominates her son to be the one who would make medical decisions for her if she is unable. Smoking packs per day: 1 Smoking cigarettes per day: 20.0 Years smoked: 50 Smoking pack-years: 50.00 Smoking status: Former smoker Tobacco type: cigarettes and e-cigarettes/vaping Smoking end date: 10/07/24 Alcohol intake: never Substance use: current Substance use type: marijuana Last use: 10/11/24 Do You Feel Safe in your Home?: Yes Lack of Transportation: No Lack of Food: Sometimes True Current Housing: I Have Housing Concerned About Future Housing: No Difficulty Paying Gas/Electric Bills: No Difficulty Paying for Meds: No Currently Unemployed: No Education: Grade School Difficulty w/ Childcare or Family Care: No Spiritual care concerns: No Meds Home Medications and Allergies Home Medications ?Medication ?Instructions ?Recorded ?Confirmed ?Type albuterol sulfate 90 mcg/actuation 2 puff inhalation Q6H PRN sob 03/27/23 10/14/24 History aerosol inhaler apixaban 5 mg tablet (Eliquis) 5 mg PO BID 03/27/23 10/14/24 History atorvastatin 80 mg tablet 80 mg PO HS 03/27/23 10/14/24 History budesonide 0.5 mg/2 mL suspension 0.5 mg inhalation BID 03/27/23 10/14/24 History for nebulization gabapentin 300 mg capsule 300 mg PO TID 03/27/23 10/14/24 History losartan 50 mg tablet 50 mg PO DAILY 03/27/23 10/14/24 History metoprolol succinate 50 mg 50 mg PO DAILY 03/27/23 10/14/24 History tablet,extended release 24 hr venlafaxine 37.5 mg tablet 37.5 mg PO BID 03/27/23 10/14/24 History fluticasone fur. 100 mcg-umeclid 1 inh inhalation DAILY 1 month #60 04/01/23 10/14/24 Rx 62.5 mcg-vilant 25 mcg ea inhalat.powder (Trelegy Ellipta) Allergies Allergy/AdvReac Type Severity Reaction Status Date / Time Penicillins Allergy Other Verified 10/14/24 16:46 Vital Signs Vital Signs - 24 hr 10/14/24 11:48 10/14/24 12:00 10/14/24 12:00 Temperature 97.4 F L Pulse Rate 111 H 110 H Respiratory Rate 24 H 32 H Blood Pressure 158/82 H 119/76 Pulse Oximetry 95 95 95 Oxygen Delivery Nasal Cannula Nasal Cannula Oxygen Flow Rate 4 4 10/14/24 13:43 10/14/24 14:37 10/14/24 15:33 Temperature Pulse Rate 114 H 126 H 113 H Respiratory Rate 26 H 25 H 27 H Blood Pressure 128/73 142/80 H Pulse Oximetry 96 99 99 Oxygen Delivery BiPAP Oxygen Flow Rate 10/14/24 16:45 10/14/24 17:08 10/14/24 19:20 Temperature Pulse Rate 112 H 115 H 108 H Respiratory Rate 19 26 H Blood Pressure 141/71 H 133/76 Pulse Oximetry 98 96 100 Oxygen Delivery Nasal Cannula Oxygen Flow Rate 10/14/24 19:20 10/14/24 20:43 10/14/24 20:46 Temperature Pulse Rate 108 H 113 H 113 H Respiratory Rate 25 H 25 H Blood Pressure 131/67 131/67 Pulse Oximetry 98 98 Oxygen Delivery Oxygen Flow Rate 10/14/24 21:20 Temperature 98.5 F Pulse Rate 115 H Respiratory Rate 23 H Blood Pressure 132/70 Pulse Oximetry 100 Oxygen Delivery Oxygen Flow Rate Exam Const: General: comfortable and no acute distress Other: A&O x3 HENMT: Mouth: Yes moist mucous membranes Other: Edentulous Eyes: Pupils: Equal, round and reactive pupils present Neck: Neck: supple Resp: Effort & Inspection: normal respiratory effort Auscultation: diminished lung sounds Cardio: Rate: regular rate Rhythm: regular rhythm Heart sounds: no gallops, no murmurs and no rubs GI: Inspection: non-distended GI Palp: Yes Soft to palpation Neuro: Motor exam (neuro): 5/5 motor strength present throughout Extrem: General: no edema H&P: Results Labs Labs: Short CBC 10/14/24 Range/Units 12:05 WBC 6.4 (4.5-10.0) K/mm3 Hgb 11.8 L (12.0-15.0) g/dL Hct 40.2 (37.0-47.0) % Plt Count 190 (150-375) k/mm3 BMP 10/14/24 12:05 Sodium 140 Potassium 4.7 Chloride 93 L Carbon Dioxide > 40 H BUN 19 H D Creatinine 0.52 L Glucose 139 H Calcium 10.7 H Liver Function 10/14/24 Range/Units 12:05 Total Bilirubin 1.2 (0.2-1.3) mg/dL AST 39 H (14-36) U/L ALT 23 (6-35) U/L Alkaline Phosphatase 51 (38-126) U/L Albumin 4.2 (3.5-5.1) g/dL Assessment and Plan Assessment and plan (1) COPD exacerbation: Code(s): J44.1 - Chronic obstructive pulmonary disease with (acute) exacerbation Status: Acute (2) Acute and chronic respiratory failure, unspecified whether with hypoxia or hypercapnia: Code(s): J96.20 - Acute and chronic respiratory failure, unspecified whether with hypoxia or hypercapnia Status: Acute (3) Marijuana abuse: Code(s): F12.10 - Cannabis abuse, uncomplicated Status: Acute Plan 64-year-old female with a history of atrial fibrillation on Eliquis, COPD with chronic respiratory failure with hypoxia and hypercarbia, CAD, PAD, anxiety and depression, hypertension. She has had shortness of breath for a few days. She has been using her inhalers and nebulizers. She reports she has had some difficulty remembering things and cannot detail what controller medications he takes. She has had a cough with green sputum production. She felt chills at some time. Denies chest pain, nausea vomiting, diarrhea, sick contacts, recent travel. Denies smoking but reports vaping ABG in the ER performed demonstrated pH 7.35 a, pCO2 77, bicarb 42.4 on BiPAP. Chest x-ray with coarse bilateral breast calcifications but no focal opacities a pulmonary edema identified. She received Solu-Medrol 62.5 IV x1, DuoNeb x1, doxycycline 100 mg x 1. She was shortly after weaned off of BiPAP back to her usual 3 L and was resting comfortably, reporting she was 50% improved already. ----- She is improved. Continue to treat with the scheduled Solu-Medrol 62.5 IV q.6 hours, DuoNebs q.6 hours, doxycycline 100 mg IV b.i.d., can continue sodium chl oride at 125 cc per now. Continue to monitor tachycardia and respiratory status. Patient reports she was given a CPAP machine to use at home but she does not really know when to use it. She was told to use it at night at 1 time and then during the day another time. Patient has poor health literacy and neurocognitive decline. Placing pulmonology consult to help arrange/manage noninvasive pressure ventilation as this may decreased readmissions. Patient would like to be full code. 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 Hospitalist [facility] Advance Care Plan I have confirmed that the patient's Advanced Care Plan is present, code status is documented, or surrogate decision maker is listed in patient medical record.: Yes Medication Reconciliation I have utilized all available resources to obtain, update and review the patients current medications (includes all prescriptions, OTC, herbals, cannabis, and nutritional supplements).: Yes
[2024-10-14] MEDS: VENLAFAXINE HCL 37.5 MG TABLET PO (22:23)
[2024-10-15] VITALS (29 sets, daily range): BP systolic 104–127; BP diastolic 51–67; PULSE 63–121; RESP 17–35; TEMP 36.4–37; O2SAT 94–100; BMI 15.5
[2024-10-15] MEDS: IPRATROPIUM 0.5 MG/ALBUTEROL SULFATE 2.5 MG AMPUL.NEB 3 ML INHALATION ×4 (01:53→20:30)
[2024-10-15 04:23] LABS: Hematocrit 39.5 % (37.0-47.0); Hemoglobin 11.8 g/dL (12.0-15.0); Immature Granulocyte Percent A 0.3 % (0-0.5); Lymphocytes Absolute Auto 0.50 K/mm3 (0.9-3.2); Mean Corpuscular HGB Conc 29.9 g/dl (32-36); Mean Corpuscular Hemoglobin 29.2 pg (26-34); Mean Corpuscular Volume 97.8 fl (80-100); Nucleated Red Blood Cells Absolute Auto 0.000 K/mm3 (0.0-0.012); Nucleated Red Blood Cells Perc 0.0 % (0.0-0.2); Platelet Count Result 197 k/mm3 (150-375); Red Blood Count 4.04 M/mm3 (4.2-5.4); White Blood Count 3.9 K/mm3 (4.5-10.0)
[2024-10-15 04:45] LABS: Blood Urea Nitrogen 28 mg/dL (7-17); Calcium 9.6 mg/dL (8.4-10.2); Carbon Dioxide > 40 mmol/L (22-30); Chloride 91 mmol/L (98-107); Estimated CRCL calculation 58 ml/min; Estimated Glomerular Filt Rate > 60; Glucose 152 mg/dL (65-110); Potassium 4.8 mmol/L (3.4-5.0); Sodium 137 mmol/L (137-145)
[2024-10-15] MEDS: DOXYCYCLINE IV 100 MG in SODIUM CHLORIDE 0.9% IV 100 ML IVPB ×2 (06:10→20:22)
--- NOTE | 2024-10-15 07:09 | PM.IMPN ---
Progress Note: A&P Assessment and Plan (1) Acute and chronic respiratory failure, unspecified whether with hypoxia or hypercapnia: Code(s): J96.20 - Acute and chronic respiratory failure, unspecified whether with hypoxia or hypercapnia Status: Acute Assessment and Plan: - Chest x-ray with coarse bilateral breast calcifications but no focal opacities a pulmonary edema identified. - ABG in the ER performed demonstrated pH 7.35 a, pCO2 77, bicarb 42.4 on BiPAP. Has since been able to wean back to baseline 3L NC. - Oxygen supplementation: 3L NC, baseline oxygen supplementation. Intermittent BIPAP during sleep. - Suspected cause: COPD exacerbation - EKG: sinus tachycardia - See COPD exacerbation plan below. (2) COPD exacerbation: Code(s): J44.1 - Chronic obstructive pulmonary disease with (acute) exacerbation Status: Acute Assessment and Plan: Chest x-ray with coarse bilateral breast calcifications but no focal opacities a pulmonary edema identified. ABG in the ER performed demonstrated pH 7.35 a, pCO2 77, bicarb 42.4 on BiPAP. Was able to wean back to baseline 3L NC. Placed back on bipap for sleep. Repeat ABG this am to reassess hypercapnia showed slight improvement. Started on doxycycline 100 mg on 10/14 Solu-Medrol Duonebz q6H Send sputum cultures if possible Monitor vital signs, I&Os, neuro status and patient is a fall risk Monitor serum electrolytes, cultures and CBC Monitor Oxygen saturation, Oxygen via NC; wean oxygen as tolerated, keep SpO2 greater than 88% Pulmonology consulted, appreciate recommendations (3) Atrial fibrillation: Code(s): I48.91 - Unspecified atrial fibrillation Status: Acute Assessment and Plan: - EKG: sinus tachycardia - Current home medication: Metoprolol 50 mg daily - Anticoagulation: Eliquis 5 mg BID (4) Hypertension: Qualifiers: Hypertension type: primary hypertension Qualified Code(s): I10 - Essential (primary) hypertension Code(s): I10 - Essential (primary) hypertension Status: Acute Assessment and Plan: Chronic, continue home medications - losartan 50 mg daily - metoprolol 50 mg daily - blood pressures remain stable, continue to monitor (5) Marijuana abuse: Code(s): F12.10 - Cannabis abuse, uncomplicated Status: Acute Time Spent With Patient Time with patient: 25 - 35 minutes Subjective Date/time seen: 07/29/25 07:09 Interval history: 64-year-old female with a past medical history of atrial fibrillation on Eliquis, COPD with chronic respiratory failure with hypoxia and hypercarbia, CAD, PAD, anxiety and depression, hypertension presents to the hospital for shortness of breath. Patient is pleasant lying comfortably in bed. She states that she continues to have slight shortness of breath but this is much improved since admission. She denies associated cough. She states that she used her BiPAP intermittently overnight she removed the BiPAP because she was growing more and more claustrophobic. She had no other complaints denying chest pain, palpitations, nausea/vomiting, and abdominal pain. Review of Systems Review of Systems: All systems reviewed & are unremarkable except as noted in HPI and below (Subjective/HPI) Exam Narrative: AF HR 96 RR 21 SpO2 97 Bipap on patient attempting to sleep (baseline 3L) BP 127/61 General: female in no acute respiratory distress who is nontoxic appearing, lying semi recumbent in bed. HEENT: Normocephalic. Atraumatic. Extraocular movement intact. Sclera clear and anicteric. No facial asymmetry. Chest: Lungs are diminished to auscultation bilaterally. No wheezes or crackles. CV: Heart was regular rate and rhythm. Abd: Abdomen was soft. Nontender. Nondistended. Positive bowel sounds. Ext: No clubbing, cyanosis, or edema. DP pulses bilaterally. Neuro: Patient is alert and oriented x4. Speech is clear. Objective Data Vital Signs Vital Signs: Vital Signs - 24 hr 10/14/24 11:48 10/14/24 12:00 10/14/24 12:00 Temperature 97.4 F L Pulse Rate 111 H 110 H Respiratory Rate 24 H 32 H Blood Pressure 158/82 H 119/76 Pulse Oximetry 95 95 95 Oxygen Delivery Nasal Cannula Nasal Cannula Oxygen Flow Rate 4 4 10/14/24 13:43 10/14/24 14:37 10/14/24 15:33 Temperature Pulse Rate 114 H 126 H 113 H Respiratory Rate 26 H 25 H 27 H Blood Pressure 128/73 142/80 H Pulse Oximetry 96 99 99 Oxygen Delivery BiPAP Oxygen Flow Rate 10/14/24 16:45 10/14/24 17:08 10/14/24 19:20 Temperature Pulse Rate 112 H 115 H 108 H Respiratory Rate 19 26 H Blood Pressure 141/71 H 133/76 Pulse Oximetry 98 96 100 Oxygen Delivery Nasal Cannula Oxygen Flow Rate 10/14/24 19:20 10/14/24 20:43 10/14/24 20:46 Temperature Pulse Rate 108 H 113 H 113 H Respiratory Rate 25 H 25 H Blood Pressure 131/67 131/67 Pulse Oximetry 98 98 Oxygen Delivery Oxygen Flow Rate 10/14/24 21:20 10/14/24 21:26 10/14/24 21:30 Temperature 98.5 F Pulse Rate 115 H 114 H Respiratory Rate 23 H Blood Pressure 132/70 Pulse Oximetry 100 96 Oxygen Delivery Nasal Cannula Oxygen Flow Rate 3 10/14/24 22:00 10/14/24 23:50 10/15/24 00:00 Temperature 98.1 F Pulse Rate 115 H 114 H Respiratory Rate 20 Blood Pressure 143/73 H Pulse Oximetry 99 99 Oxygen Delivery Nasal Cannula Oxygen Flow Rate 3 10/15/24 00:00 10/15/24 00:30 10/15/24 01:53 Temperature Pulse Rate 108 H 121 H 96 Respiratory Rate 20 18 Blood Pressure Pulse Oximetry 98 Oxygen Delivery BiPAP Oxygen Flow Rate 10/15/24 02:00 10/15/24 02:37 10/15/24 04:00 Temperature Pulse Rate 113 H 96 Respiratory Rate 18 Blood Pressure Pulse Oximetry 94 Oxygen Delivery Nasal Cannula Oxygen Flow Rate 3 10/15/24 04:00 10/15/24 04:37 10/15/24 06:00 Temperature 98.0 F Pulse Rate 108 H 107 H 106 H Respiratory Rate 35 H Blood Pressure 124/67 Pulse Oximetry 98 Oxygen Delivery Oxygen Flow Rate Intake/Output Intake/Output: Intake & Output 10/12/24 10/13/24 10/14/24 10/15/24 23:59 23:59 23:59 23:59 Intake Total 100 Balance 100 Meds/Results Medications: Active Medications Generic Name Dose Route Start Last Admin Trade Name Freq PRN Reason Stop Dose Admin Albuterol/Ipratropium 3 ml 10/15/24 02:00 10/15/24 01:53 Ipratropium 0.5 Mg/Albuterol Sulfate 2.5 Mg Ampul.Neb 3 Ml INHALATION 3 ml Q6HRT JIHAN Administration Apixaban 5 mg 10/15/24 09:00 Apixaban 5 Mg Tablet PO BID JIHAN Atorvastatin Calcium 80 mg 10/15/24 21:00 Atorvastatin 40 Mg Tablet PO HS JIHAN Sodium Chloride 1,000 mls @ 125 mls/hr 10/14/24 18:25 10/14/24 19:49 Normal Saline Iv IV CONT 125 mls/hr .Q8H JIHAN Administration Doxycycline Hyclate 100 mg/ 100 mls @ 100 mls/hr 10/15/24 07:00 10/15/24 06:10 Sodium Chloride IVPB 100 mls/hr Q12H JIHAN Administration Methylprednisolone Sodium Succinate 62.5 mg 10/15/24 02:00 10/15/24 01:57 Methylprednisolone Sod Succ 125 Mg Vial IV PUSH 62.5 mg Q6H JIHAN Administration Morphine Sulfate 2 mg 10/14/24 18:23 Morphine Sulfate (*Crx) 2 Mg/Ml Inj IV PUSH Q2H PRN Pain Rated 7-10 Ondansetron HCl 4 mg 10/14/24 18:23 Ondansetron Inj 4 Mg/2 Ml Vial IV PUSH Q4H PRN Nausea Venlafaxine HCl 37.5 mg 10/14/24 21:00 10/14/24 22:23 Venlafaxine Hcl 37.5 Mg Tablet PO 37.5 mg Q12HR JIHAN Administration Radiology Results: ITS Impressions Chest X-Ray 10/14/24 12:53 Impression: 1: No acute cardiopulmonary disease. 2: Coarse bilateral breast calcifications. Recommend correlation with diagnostic bilateral mammogram and possible additional ultrasound. Labs Labs: Laboratory Results - last 24 hr 10/14/24 10/14/24 10/14/24 12:05 13:10 15:50 WBC 6.4 RBC 4.06 L Hgb 11.8 L Hct 40.2 MCV 99.0 MCH 29.1 MCHC 29.4 L RDW 12.8 Plt Count 190 MPV 9.3 Immature Gran % (Auto) 0.5 Neut % (Auto) 73.2 H Lymph % (Auto) 18.3 [place] % (Auto) 6.6 Eos % (Auto) 0.9 Baso % (Auto) 0.5 Lymph # (Auto) 1.17 [place] # (Auto) 0.4 Eos # (Auto) 0.1 Baso # (Auto) 0.0 Abs Immat Gran (auto) 0.03 Absolute Neuts (auto) 4.7 Absolute Nucleated RBC 0.000 Band Neutrophils % 0 Nucleated RBC % 0.0 Platelet Estimate Adequate Hypochromasia 1+ Anisocytosis 1+ Schistocytes None seen Puncture Site Right radial Right radial ABG pH 7.356 7.358 ABG pCO2 78.4 H* 77.2 H* ABG pO2 84.2 83.4 ABG PO2/FiO2 Ratio 2.34 2.78 ABG HCO3 42.9 H 42.4 H ABG O2 Saturation 95.4 95.3 ABG O2 Content 17.4 17.0 ABG Base Excess 13.9 13.6 A-a Gradient 81.5 39.8 Oxyhemoglobin 95.6 95.1 Carboxyhemoglobin 0.3 Methemoglobin 0.5 Reduced Hemoglobin 4.1 Total Hemoglobin 12.9 12.7 O2 Delivery Device Nasal cannula Bipap O2 Liters/Min 4.0 Not Reportable FiO2 36 30 Expiratory Pressure 6 Inspiratory Pressure 12 Sodium 140 Potassium 4.7 Chloride 93 L Carbon Dioxide > 40 H Anion Gap BUN 19 H D Creatinine 0.52 L Estim Creat Clear Calc Not Reportable Estimated GFR > 60 Glucose 139 H Calcium 10.7 H Total Bilirubin 1.2 AST 39 H ALT 23 Alkaline Phosphatase 51 Total Protein 7.2 Albumin 4.2 10/15/24 03:41 WBC 3.9 L RBC 4.04 L Hgb 11.8 L Hct 39.5 MCV 97.8 MCH 29.2 MCHC 29.9 L RDW 12.6 Plt Count 197 MPV 9.5 Immature Gran % (Auto) 0.3 Neut % (Auto) 86.2 H Lymph % (Auto) 12.7 L [place] % (Auto) 0.5 L Eos % (Auto) 0.0 Baso % (Auto) 0.3 Lymph # (Auto) 0.50 L [place] # (Auto) 0.0 L Eos # (Auto) 0.0 Baso # (Auto) 0.0 Abs Immat Gran (auto) 0.01 Absolute Neuts (auto) 3.4 Absolute Nucleated RBC 0.000 Band Neutrophils % Nucleated RBC % 0.0 Platelet Estimate Hypochromasia Anisocytosis Schistocytes Puncture Site ABG pH ABG pCO2 ABG pO2 ABG PO2/FiO2 Ratio ABG HCO3 ABG O2 Saturation ABG O2 Content ABG Base Excess A-a Gradient Oxyhemoglobin Carboxyhemoglobin Methemoglobin Reduced Hemoglobin Total Hemoglobin O2 Delivery Device O2 Liters/Min FiO2 Expiratory Pressure Inspiratory Pressure Sodium 137 Potassium 4.8 Chloride 91 L Carbon Dioxide > 40 H Anion Gap BUN 28 H Creatinine 0.61 L Estim Creat Clear Calc 58 Estimated GFR > 60 Glucose 152 H Calcium 9.6 Total Bilirubin AST ALT Alkaline Phosphatase Total Protein Albumin Quality VTE Prophylaxis VTE prophylaxis: pharmacologic ordered
[2024-10-15 08:12] LABS: Alveolar/Arterial O2 Gradient 128.0 mmHg; Fractional Inspired Oxygen 32 %; HCO3 ABG 40.4 mEq/l (22.0-26.0); Oxygen Content ABG 16.2 %vol (16.0-22.0); Oxygen Saturation ABG 96.5 % (95.0-100.0); PO2 ABG 93.6 mmHg (80.0-100.0); PO2 FiO2 Ratio Arterial Blood 2.92 %
[2024-10-15] MEDS: GABAPENTIN 300 MG CAPSULE PO ×2 (08:23→16:56)
[2024-10-15] MEDS: APIXABAN 5 MG TABLET PO ×2 (08:23→16:56)
[2024-10-15] MEDS: METOPROLOL SUCCINATE EXT REL 50 MG TABCR PO (08:24)
[2024-10-15] MEDS: VENLAFAXINE HCL 37.5 MG TABLET PO ×2 (08:24→20:23)
[2024-10-15] MEDS: LOSARTAN POTASSIUM 50 MG TABLET PO (08:24)
[2024-10-15] MEDS: SODIUM CHLORIDE 0.9% IV 1,000 ML 125 ML IV CONT (08:30)
[2024-10-15 10:25] LABS: Liters per Minute 3.0 LPM; PCO2 ABG 74.3 mmHg (35.0-45.0); Site Drawn RIGHT BRACHIAL
--- NOTE | 2024-10-15 18:54 | P.CONPL_ITS ---
Assessment and Plan Assessment and plan (1) Acute and chronic respiratory failure, unspecified whether with hypoxia or hypercapnia: Code(s): J96.20 - Acute and chronic respiratory failure, unspecified whether with hypoxia or hypercapnia Status: Acute Assessment and Plan: She had acute decompensation with worsening over hypercapnic hypoxemic respiratory failure, noncompliant with home NIV. She has been wearing it about an hour or so while awake at home, arrived with pCO2 in the 70s with pH at the low end of normal almost compensated. She needs to use noninvasive while she is here in the hospital to improve her hypercapnia and be more compliant with use of her device at home. I do not know who set up her device. We saw her in March 2023, no follow-up. She needs a COPD regimen including 3 long-acting medications delivered in a manner that she can tolerate. If she has inspiratory capacity and can use an inhaler, she may stay on the Symbicort and the Spiriva with rescue albuterol as needed. She may benefit from an add on therapy such as roflumilast. She has no elevated eosinophils in our system. She may have PFTs somewhere else. Her family tells me that they want her to follow up in our office at [place] and take over her pulmonary management. (2) COPD exacerbation: Code(s): J44.1 - Chronic obstructive pulmonary disease with (acute) exacerbation Status: Acute Assessment and Plan: See above. (3) Tobacco abuse: Code(s): Z72.0 - Tobacco use Status: Acute Assessment and Plan: smoked until this admission. (4) Pulmonary cachexia due to chronic obstructive pulmonary disease: Code(s): R64 - Cachexia; J44.9 - Chronic obstructive pulmonary disease, unspecified Status: Acute Assessment and Plan: BMI is 16 consistent with pulmonary cachexia, poor appetite, increased work of breathing. Weight loss 20 lb over several months. This is a marker of poor prognosis. Plan plan: 1) NIV to assist with management of hypercapnia. she has a device at home, and we can talk with her DME, evaluatet he settings, make sure that she is on same settings here, and we work with her to make sure that she can tolerate these, and that she understands that she needs to use while sleeping and in the day as needed, but using only for an hour a day while awake is not helping her. 2) Steroids, bronchodilator therapy, empiric antibiotics. She has no infiltrate does not appear to be infected. Antibiotics are also beneficial for anti- inflammatory effect. 3) on discharge needs a coherent plan for her COPD management, close follow-up, tobacco cessation, pulmonary rehab if she has not had this. She appears to be at end-stage COPD. She is a full code. Her poor nutrition needs to be addressed. She has pulmonary cachexia.Needs protein supplements. 4) alpha-1 genotype testing History of Present Illness History of Present Illness Consult date: 10/15/24 Requesting physician: Linda Gamble MD Chief complaint: COPD excerbation, Respiratory failure Narrative: pt was seen October 15, 2024 at 18:55 Room 201 for hypercapnia NEW: Carly Oliveira is a 64-year-old female with COPD, tobacco use, recurrent respiratory failure, admitted October 14 with increased shortness of breath for several days. She has used her inhalers without improvement. She has had no cough, fever, chills, nausea or vomiting. She told another doctor that she has numbness to her lower extremities and she wants to see a neurologist if possible. She tells me that she has a PAP machine at home, uses it although not as much as she could, maybe an hour a day. I called her son and daughter in law on the phone to get additional history. Her son Felecia and his take care of her, and they said that over the last few weeks, she has been feeling worse, decided to use her noninvasive machine but she is only using it about an hour or maximum 2 hours while awake during the day so this is not providing any benefit. I explained that with the chronic elevated CO2 she needs to be using this device while sleeping. That is when the noninvasive is able to improve her ventilation and lower her carbon dioxide levels. reports 20 lb wt loss over several months Tells me that she has inhalers home and nebulizer machine, uses them intermittently. Her son told me that she is now using Symbicort and Spiriva which is a combination for COPD. Her home medication list here on admission showed that she was on Trelegy, a triple inhaler and also budesonide nebulized twice a day. These 2 medications would not be used together as the budesonide is an inhaled corticosteroid. I think the family is not certain about her medications and they are not certain about what she needs to be on. It was never clear who was prescribing her medications. We saw the patient in March of 2023 but she never followed up in our office. Her primary care doctor Yang Rosales retired and she is now followed by Luz Sheth NP. [facility]. The patient's daughter in law is Phuong Mena, to Felecia, patient's son. she wants her number in the chart as a contact because she is the care companion at home. Her number is [phone] PMH: COPD, CAD, chronic respiratory failure, atrial fibrillation, HTN, has VIK, has not been able to tolerate noninvasive devices at home. DATA * 10/15/2024 sodium 137, potassium 4.8, chloride 91, carbon dioxide greater than 40, BUN 28, creatinine 0.61, glucose 152, calcium 9.6. White blood cell count 3.9, hemoglobin 11.8, hematocrit 39.5%, platelets 197k * ABGs October 14 pH 7.35, pCO2 78, PO2 84 saturation 95% on 4 L; on BiPAP 12/6 and 30%= pH 7.35 pCO2 77 PO2 83 HC03 of 42 saturation 93%. 3 03/27/23 03/27/2310/14 pH 7.202 7.4 7.35 7.35 7.35 pCO2 123 62.7 78 77 74.3 pO2 107 69 84 83 93.6 HCO3 47 39 43 42 40.4 sat 96% 95% 95% 96.5% O2 delivery NRM NIV NC NC O2 15 L 65% 4L 30% 3L rate 20 IPAP 12 EPAP 6 * 10/14/2024; CXR Impression: : No acute cardiopulmonary disease. Coarse bilateral breast calcifications. Recommend correlation with diagnostic bilateral mammogram and possible additional ultrasound. Review of Systems 2 Review of Systems: All systems reviewed & are unremarkable except as noted in HPI and below [facility] Past Medical History Medical History (Updated 10/16/24 @ 11:35 by Lynn Kinney MD) Atrial fibrillation PAD (peripheral artery disease) Coronary disease COPD (chronic obstructive pulmonary disease) Anxiety Chronic respiratory failure Hypertension Depression Surgical History Surgical History Hx of peripheral artery bypass Family History Family History Father Mesothelioma Mother Heart disease Social History Social History Social History: Patient still smoking up to 3 cigarettes per day. No alcohol or drug use. Full code. Lives at home with son, dtr-in-law and grandchild. Full code. She nominates her son to be the one who would make medical decisions for her if she is unable. Smoking packs per day: 1 Smoking cigarettes per day: 20.0 Years smoked: 50 Smoking pack-years: 50.00 Smoking status: Former smoker Tobacco type: cigarettes and e-cigarettes/vaping Smoking end date: 10/07/24 Alcohol intake: never Substance use: current Substance use type: marijuana Last use: 10/11/24 Do You Feel Safe in your Home?: Yes Lack of Transportation: No Lack of Food: Sometimes True Current Housing: I Have Housing Concerned About Future Housing: No Difficulty Paying Gas/Electric Bills: No Difficulty Paying for Meds: No Currently Unemployed: No Education: Grade School Difficulty w/ Childcare or Family Care: No Spiritual care concerns: No Meds Home Medications and Allergies Home Medications ?Medication ?Instructions ?Recorded ?Confirmed ?Type albuterol sulfate 90 mcg/actuation 2 puff inhalation Q6H PRN sob 03/27/23 10/14/24 History aerosol inhaler apixaban 5 mg tablet (Eliquis) 5 mg PO BID 03/27/23 10/14/24 History atorvastatin 80 mg tablet 80 mg PO HS 03/27/23 10/14/24 History budesonide 0.5 mg/2 mL suspension 0.5 mg inhalation BID 03/27/23 10/14/24 History for nebulization gabapentin 300 mg capsule 300 mg PO TID 03/27/23 10/14/24 History losartan 50 mg tablet 50 mg PO DAILY 03/27/23 10/14/24 History metoprolol succinate 50 mg 50 mg PO DAILY 03/27/23 10/14/24 History tablet,extended release 24 hr venlafaxine 37.5 mg tablet 37.5 mg PO BID 03/27/23 10/14/24 History fluticasone fur. 100 mcg-umeclid 1 inh inhalation DAILY 1 month #60 04/01/23 10/14/24 Rx 62.5 mcg-vilant 25 mcg ea inhalat.powder (Trelegy Ellipta) Allergies Allergy/AdvReac Type Severity Reaction Status Date / Time Penicillins Allergy Other Verified 10/14/24 16:46 Vital Signs Vital Signs - 24 hr 10/14/24 19:20 10/14/24 19:20 10/14/24 20:43 Temperature Pulse Rate 108 H 108 H 113 H Respiratory Rate 26 H 25 H Blood Pressure 133/76 131/67 Pulse Oximetry 100 98 Oxygen Delivery Oxygen Flow Rate 10/14/24 20:46 10/14/24 21:20 10/14/24 21:26 Temperature 36.9 C Pulse Rate 113 H 115 H 114 H Respiratory Rate 25 H 23 H Blood Pressure 131/67 132/70 Pulse Oximetry 98 100 Oxygen Delivery Oxygen Flow Rate 10/14/24 21:30 10/14/24 22:00 10/14/24 23:50 Temperature 36.7 C Pulse Rate 115 H 114 H Respiratory Rate 20 Blood Pressure 143/73 H Pulse Oximetry 96 99 Oxygen Delivery Nasal Cannula Oxygen Flow Rate 3 10/15/24 00:00 10/15/24 00:00 10/15/24 00:30 Temperature Pulse Rate 108 H 121 H Respiratory Rate 20 Blood Pressure Pulse Oximetry 99 98 Oxygen Delivery Nasal Cannula BiPAP Oxygen Flow Rate 3 10/15/24 01:53 10/15/24 02:00 10/15/24 02:37 Temperature Pulse Rate 96 113 H 96 Respiratory Rate 18 18 Blood Pressure Pulse Oximetry Oxygen Delivery Oxygen Flow Rate 10/15/24 04:00 10/15/24 04:00 10/15/24 04:37 Temperature 36.7 C Pulse Rate 108 H 107 H Respiratory Rate 35 H Blood Pressure 124/67 Pulse Oximetry 94 98 Oxygen Delivery Nasal Cannula Oxygen Flow Rate 3 10/15/24 06:00 10/15/24 07:44 10/15/24 08:00 Temperature 36.7 C Pulse Rate 106 H 107 H 97 Respiratory Rate 28 H 18 Blood Pressure 104/61 Pulse Oximetry 100 100 Oxygen Delivery Nasal Cannula Oxygen Flow Rate 2.5 10/15/24 08:00 10/15/24 08:24 10/15/24 09:20 Temperature Pulse Rate 105 H 106 H 100 Respiratory Rate 18 Blood Pressure Pulse Oximetry Oxygen Delivery Oxygen Flow Rate 10/15/24 09:30 10/15/24 10:00 10/15/24 11:44 Temperature 36.4 C Pulse Rate 97 105 H 95 Respiratory Rate 18 24 H Blood Pressure 127/61 Pulse Oximetry 98 Oxygen Delivery Oxygen Flow Rate 10/15/24 12:00 10/15/24 12:00 10/15/24 13:00 Temperature Pulse Rate 92 101 H Respiratory Rate 25 H 20 Blood Pressure Pulse Oximetry 99 97 Oxygen Delivery BiPAP BiPAP Oxygen Flow Rate 10/15/24 14:19 10/15/24 14:26 10/15/24 14:27 Temperature Pulse Rate 65 63 96 Respiratory Rate 20 21 H 21 H Blood Pressure Pulse Oximetry 97 Oxygen Delivery BiPAP Oxygen Flow Rate 10/15/24 16:00 10/15/24 16:00 10/15/24 16:00 Temperature 36.7 C Pulse Rate 92 92 101 H Respiratory Rate 25 H 25 H Blood Pressure 119/60 Pulse Oximetry 99 99 Oxygen Delivery BiPAP Oxygen Flow Rate 10/15/24 18:00 Temperature Pulse Rate 96 Respiratory Rate Blood Pressure Pulse Oximetry Oxygen Delivery Oxygen Flow Rate Exam 2 Narrative: GEN: Alert, oriented, not in distress. She is wearing BiPAP, and the RN arrived to place an IV. Frail. Saturation is 98-99% on nasal cannula 2-3 L. She is currently on BiPAP 02/22, rate 18, 30% FiO2 HEENT: pupils are equal, EOMI, symmetrical face; oral membranes dry, Mallampati II airway NECK: Trachea is midline CHEST: Equal air entry, symmetric excursion, hyperinflated thorax with extremely diminished breath sounds, no wheezing. I did not appreciate crackles. CV: Distant S1S2 no m/g/r ABD : (+) bowel sounds Extremities : no clubbing, cyanosis, or edema. PSYCH: normal thought and speech, gait is normal Results Laboratory Findings 10/16/24 03:35 10/16/24 03:35 ABG, PT/INR, D-dimer: ABG ABG pH 7.353 (7.350-7.450) 10/15/24 07:37 ABG pCO2 74.3 mmHg (35.0-45.0) H* 10/15/24 07:37 ABG pO2 93.6 mmHg (80.0-100.0) 10/15/24 07:37 ABG O2 Saturation 96.5 % (95.0-100.0) 10/15/24 07:37 Abnormal lab findings: Abnormal Labs 10/14/24 10/14/24 10/14/24 12:05 13:10 15:50 WBC RBC 4.06 L Hgb 11.8 L MCHC 29.4 L Neut % (Auto) 73.2 H Lymph % (Auto) [place] % (Auto) Lymph # (Auto) [place] # (Auto) ABG pCO2 78.4 H* 77.2 H* ABG HCO3 42.9 H 42.4 H Total Hemoglobin Chloride 93 L Carbon Dioxide > 40 H BUN 19 H D Creatinine 0.52 L Glucose 139 H Calcium 10.7 H AST 39 H 10/15/24 10/15/24 03:41 07:37 WBC 3.9 L RBC 4.04 L Hgb 11.8 L MCHC 29.9 L Neut % (Auto) 86.2 H Lymph % (Auto) 12.7 L [place] % (Auto) 0.5 L Lymph # (Auto) 0.50 L [place] # (Auto) 0.0 L ABG pCO2 74.3 H* ABG HCO3 40.4 H Total Hemoglobin 11.9 L Chloride 91 L Carbon Dioxide > 40 H BUN 28 H Creatinine 0.61 L Glucose 152 H Calcium AST
[2024-10-15] MEDS: ATORVASTATIN 40 MG TABLET 80 MG PO (20:23)
[2024-10-15] MEDS: SODIUM CHLOR 3% 15 ML NEB (RESPIRATORY THERAPY) 6 ML INHALATION (20:30)
[2024-10-16] VITALS (26 sets, daily range): BP systolic 122–135; BP diastolic 62–66; PULSE 69–110; RESP 16–24; TEMP 35.9–36.8; O2SAT 93–98
[2024-10-16] MEDS: IPRATROPIUM 0.5 MG/ALBUTEROL SULFATE 2.5 MG AMPUL.NEB 3 ML INHALATION ×4 (01:21→19:59)
[2024-10-16 04:09] LABS: Hematocrit 33.9 % (37.0-47.0); Hemoglobin 10.4 g/dL (12.0-15.0); Mean Corpuscular HGB Conc 30.7 g/dl (32-36); Mean Corpuscular Hemoglobin 29.5 pg (26-34); Mean Corpuscular Volume 96.0 fl (80-100); Platelet Count Result 199 k/mm3 (150-375); Red Blood Count 3.53 M/mm3 (4.2-5.4); White Blood Count 8.5 K/mm3 (4.5-10.0)
[2024-10-16 04:59] LABS: Alanine Aminotransferase 17 U/L (6-35); Albumin Level 3.8 g/dL (3.5-5.1); Alkaline Phosphatase 43 U/L (38-126); Anion Gap 1 mmol/L (4-12); Aspartate Amino Transferase 27 U/L (14-36); Bilirubin,Total 0.9 mg/dL (0.2-1.3); Blood Urea Nitrogen 27 mg/dL (7-17); Calcium 9.1 mg/dL (8.4-10.2); Carbon Dioxide 38 mmol/L (22-30); Chloride 95 mmol/L (98-107); Estimated CRCL calculation 67 ml/min; Estimated Glomerular Filt Rate > 60; Glucose 153 mg/dL (65-110); Potassium 4.2 mmol/L (3.4-5.0); Sodium 134 mmol/L (137-145); Total Protein 6.3 g/dL (6.3-8.2)
[2024-10-16] MEDS: DOXYCYCLINE IV 100 MG in SODIUM CHLORIDE 0.9% IV 100 ML IVPB (06:11)
[2024-10-16] MEDS: SODIUM CHLOR 3% 15 ML NEB (RESPIRATORY THERAPY) 6 ML INHALATION ×3 (08:06→19:59)
--- NOTE | 2024-10-16 08:20 | P.PNIM_ITS ---
Progress Note: A&P Assessment and Plan (1) Acute and chronic respiratory failure, unspecified whether with hypoxia or hypercapnia: Code(s): J96.20 - Acute and chronic respiratory failure, unspecified whether with hypoxia or hypercapnia Status: Acute Assessment and Plan: * Chest x-ray with coarse bilateral breast calcifications but no focal opacities a pulmonary edema identified. * ABG in the ER performed demonstrated pH 7.35 a, pCO2 77, bicarb 42.4 on BiPAP. Has since been able to wean back to baseline 3L NC. * Oxygen supplementation: 3L NC, baseline oxygen supplementation. Intermittent BIPAP during sleep. * Suspected cause: COPD exacerbation * EKG: sinus tachycardia * See COPD exacerbation plan below * Pulmonology consult * NIV to assist with management of hypercapnia * Steroids, bronchodilator therapy and continue empiric antibiotics * Alpha 1 genotype testing (2) COPD exacerbation: Code(s): J44.1 - Chronic obstructive pulmonary disease with (acute) exacerbation Status: Acute Assessment and Plan: * Chest x-ray with coarse bilateral breast calcifications but no focal opacities a pulmonary edema identified. * ABG in the ER performed demonstrated pH 7.35 a, pCO2 77, bicarb 42.4 on BiPAP. Was able to wean back to baseline 3L NC. Placed back on bipap for sleep. Repeat ABG this am to reassess hypercapnia showed slight improvement. * Continue doxycycline 100 mg on 10/14 * Solu-Medrol, Duonebz q6H * Monitor vital signs, I&Os, neuro status and patient is a fall risk * Monitor serum electrolytes, cultures and CBC * Monitor Oxygen saturation, Oxygen via NC; wean oxygen as tolerated, keep SpO2 greater than 88% * Pulmonology consulted, appreciate recommendations (3) Atrial fibrillation: Code(s): I48.91 - Unspecified atrial fibrillation Status: Acute Assessment and Plan: * EKG: sinus tachycardia * Current home medication: Metoprolol 50 mg daily * Anticoagulation: Eliquis 5 mg BID (4) Hypertension: Qualifiers: Hypertension type: primary hypertension Qualified Code(s): I10 - Essential (primary) hypertension Code(s): I10 - Essential (primary) hypertension Status: Acute Assessment and Plan: Chronic, continue home medications - losartan 50 mg daily - metoprolol 50 mg daily - blood pressures remain stable, continue to monitor . - 122/62 (5) Marijuana abuse: Code(s): F12.10 - Cannabis abuse, uncomplicated Status: Acute Subjective Date/time seen: 10/16/24 08:20 Interval history: 64-year-old female with a past medical history of atrial fibrillation on Eliquis, COPD with chronic respiratory failure with hypoxia and hypercarbia, CAD, PAD, anxiety and depression, hypertension presents to the hospital for shortness of breath. 10/16/2024 Patient sitting comfortably in bed during examination. Seen by pulmonology last night, plan to start at home NIV, steroids, bronchodilator therapy, and continue empiric antibiotics. Head CT obtained for possible anisocoria -showed chronic small vascular changes but otherwise normal. Patient otherwise stable and has no complaints, on baseline O2 saturation, without leukocytosis or fever at this time. Review of Systems Review of Systems: All systems reviewed & are unremarkable except as noted in HPI and below (Subjective/HPI) Exam Narrative: General: female in no acute respiratory distress who is nontoxic appearing, lying semi recumbent in bed. HEENT: Normocephalic. Atraumatic. Extraocular movement intact. Sclera clear and anicteric. No facial asymmetry. Chest: Lungs are diminished to auscultation bilaterally. No wheezes or crackles. CV: Heart was regular rate and rhythm. Abd: Abdomen was soft. Nontender. Nondistended. Positive bowel sounds. Ext: No clubbing, cyanosis, or edema. DP pulses bilaterally. Neuro: Patient is alert and oriented x4. Speech is clear. Const: General: comfortable and no acute distress Other: A&O x3 HENMT: Mouth: Yes moist mucous membranes Other: Edentulous Eyes: Pupils: Equal, round and reactive pupils present Neck: Neck: supple Resp: Effort & Inspection: normal respiratory effort Auscultation: diminished lung sounds Cardio: Rate: regular rate Rhythm: regular rhythm Heart sounds: no gallops, no murmurs and no rubs GI: Inspection: non-distended Neuro: Cranial nerves: Yes Equal, round and reactive pupils present Motor exam (neuro): 5/5 motor strength present throughout Extrem: General: no edema Objective Data Vital Signs Vital Signs: Vital Signs - 24 hr 10/15/24 08:24 10/15/24 09:20 10/15/24 09:30 Temperature Pulse Rate 106 H 100 97 Respiratory Rate 18 18 Blood Pressure Pulse Oximetry Oxygen Delivery Oxygen Flow Rate Fraction of Inspired Oxygen 10/15/24 10:00 10/15/24 11:44 10/15/24 12:00 Temperature 97.6 F Pulse Rate 105 H 95 92 Respiratory Rate 24 H 25 H Blood Pressure 127/61 Pulse Oximetry 98 99 Oxygen Delivery BiPAP Oxygen Flow Rate Fraction of Inspired Oxygen 10/15/24 12:00 10/15/24 13:00 10/15/24 14:19 Temperature Pulse Rate 101 H 65 Respiratory Rate 20 20 Blood Pressure Pulse Oximetry 97 Oxygen Delivery BiPAP Oxygen Flow Rate Fraction of Inspired Oxygen 10/15/24 14:26 10/15/24 14:27 10/15/24 16:00 Temperature 98.0 F Pulse Rate 63 96 92 Respiratory Rate 21 H 21 H 25 H Blood Pressure 119/60 Pulse Oximetry 97 99 Oxygen Delivery BiPAP Oxygen Flow Rate Fraction of Inspired Oxygen 10/15/24 16:00 10/15/24 16:00 10/15/24 18:00 Temperature Pulse Rate 92 101 H 96 Respiratory Rate 25 H Blood Pressure Pulse Oximetry 99 Oxygen Delivery BiPAP Oxygen Flow Rate Fraction of Inspired Oxygen 10/15/24 19:47 10/15/24 20:00 10/15/24 20:00 Temperature 98.1 F Pulse Rate 97 102 H Respiratory Rate 17 Blood Pressure 118/51 L Pulse Oximetry 97 99 Oxygen Delivery Nasal Cannula Oxygen Flow Rate 2.5 Fraction of Inspired Oxygen 10/15/24 20:30 10/15/24 20:30 10/15/24 20:45 Temperature Pulse Rate 103 H 98 Respiratory Rate 20 20 Blood Pressure Pulse Oximetry 96 Oxygen Delivery Nasal Cannula Oxygen Flow Rate 3 Fraction of Inspired Oxygen 10/15/24 22:00 10/15/24 23:30 10/15/24 23:50 Temperature 98.6 F Pulse Rate 97 99 106 H Respiratory Rate 22 H 17 Blood Pressure 111/65 Pulse Oximetry 94 97 Oxygen Delivery BiPAP Oxygen Flow Rate Fraction of Inspired Oxygen 10/16/24 00:00 10/16/24 00:00 10/16/24 01:21 Temperature Pulse Rate 89 88 Respiratory Rate 24 H Blood Pressure Pulse Oximetry 95 Oxygen Delivery BiPAP Oxygen Flow Rate Fraction of Inspired Oxygen 30 10/16/24 01:21 10/16/24 01:29 10/16/24 02:00 Temperature Pulse Rate 90 93 Respiratory Rate 24 H 23 H Blood Pressure Pulse Oximetry 98 Oxygen Delivery BiPAP Oxygen Flow Rate Fraction of Inspired Oxygen 10/16/24 03:18 10/16/24 04:00 10/16/24 04:00 Temperature 97.7 F Pulse Rate 94 90 Respiratory Rate 17 Blood Pressure 128/64 Pulse Oximetry 96 95 Oxygen Delivery BiPAP Oxygen Flow Rate Fraction of Inspired Oxygen 30 10/16/24 06:00 10/16/24 07:42 Temperature 98.3 F Pulse Rate 69 91 Respiratory Rate 23 H Blood Pressure 135/66 Pulse Oximetry 97 Oxygen Delivery Oxygen Flow Rate Fraction of Inspired Oxygen Intake/Output Intake/Output: Intake & Output 10/13/24 10/14/24 10/15/24 10/16/24 23:59 23:59 23:59 23:59 Intake Total 100 1800 Output Total 300 Balance 100 1500 Meds/Results Medications: Active Medications Generic Name Dose Route Start Last Admin Trade Name Freq PRN Reason Stop Dose Admin Albuterol/Ipratropium 3 ml 10/15/24 02:00 10/16/24 08:05 Ipratropium 0.5 Mg/Albuterol Sulfate 2.5 Mg Ampul.Neb 3 Ml INHALATION 3 ml Q6HRT JIHAN Administration Apixaban 5 mg 10/15/24 09:00 10/15/24 16:56 Apixaban 5 Mg Tablet PO 5 mg BID JIHAN Administration Atorvastatin Calcium 80 mg 10/15/24 21:00 10/15/24 20:23 Atorvastatin 40 Mg Tablet PO 80 mg HS JIHAN Administration Gabapentin 300 mg 10/15/24 09:00 10/15/24 16:56 Gabapentin 300 Mg Capsule PO 300 mg TID JIHAN Administration Doxycycline Hyclate 100 mg/ 100 mls @ 100 mls/hr 10/15/24 07:00 10/16/24 06:11 Sodium Chloride IVPB 100 mls/hr Q12H JIHAN Administration Losartan Potassium 50 mg 10/15/24 09:00 10/15/24 08:24 Losartan Potassium 50 Mg Tablet PO 50 mg DAILY JIHAN Administration Methylprednisolone Sodium Succinate 62.5 mg 10/15/24 02:00 10/16/24 02:45 Methylprednisolone Sod Succ 125 Mg Vial IV PUSH 62.5 mg Q6H JIHAN Administration Metoprolol Succinate 50 mg 10/15/24 09:00 10/15/24 08:24 Metoprolol Succinate Ext Rel 50 Mg Tabcr PO 50 mg DAILY JIHAN Administration Morphine Sulfate 2 mg 10/14/24 18:23 Morphine Sulfate (*Crx) 2 Mg/Ml Inj IV PUSH Q2H PRN Pain Rated 7-10 Ondansetron HCl 4 mg 10/14/24 18:23 Ondansetron Inj 4 Mg/2 Ml Vial IV PUSH Q4H PRN Nausea Sodium Chloride 6 ml 10/15/24 20:00 10/16/24 08:06 Sodium Chlor 3% 15 Ml Neb (Respiratory Therapy) INHALATION 6 ml TIDRT JIHAN Administration Venlafaxine HCl 37.5 mg 10/14/24 21:00 10/15/24 20:23 Venlafaxine Hcl 37.5 Mg Tablet PO 37.5 mg Q12HR JIHAN Administration Radiology Results: ITS Impressions Chest X-Ray 10/14/24 12:53 Impression: 1: No acute cardiopulmonary disease. 2: Coarse bilateral breast calcifications. Recommend correlation with diagnostic bilateral mammogram and possible additional ultrasound. Labs Labs: Laboratory Results - last 24 hr 10/15/24 10/16/24 07:37 03:35 WBC 8.5 RBC 3.53 L Hgb 10.4 L Hct 33.9 L MCV 96.0 MCH 29.5 MCHC 30.7 L RDW 13.2 Plt Count 199 MPV 10.0 Puncture Site Right brachial ABG pH 7.353 ABG pCO2 74.3 H* ABG pO2 93.6 ABG PO2/FiO2 Ratio 2.92 ABG HCO3 40.4 H ABG O2 Saturation 96.5 ABG O2 Content 16.2 ABG Base Excess 12.0 A-a Gradient 128.0 Oxyhemoglobin 96.3 Total Hemoglobin 11.9 L O2 Delivery Device Nasal cannula O2 Liters/Min 3.0 FiO2 32 Sodium 134 L Potassium 4.2 Chloride 95 L Carbon Dioxide 38 H Anion Gap 1 L BUN 27 H Creatinine 0.54 L Estim Creat Clear Calc 67 Estimated GFR > 60 Glucose 153 H Calcium 9.1 Total Bilirubin 0.9 AST 27 ALT 17 Alkaline Phosphatase 43 Total Protein 6.3 Albumin 3.8 Quality VTE Prophylaxis VTE prophylaxis: pharmacologic ordered
--- NOTE | 2024-10-16 09:39 | PCPTNOTE ---
Attempted PT evaluation this date. Pt declined, stating that she is feeling really shaky today and that she just got back into bed a few minutes ago. Will continue to attempt.
--- NOTE | 2024-10-16 09:42 | PCPTNOTE ---
Attempted PT evaluation this date. Pt declined, stating that she is feeling really shaky today, and that she just got back into bed a few minutes ago. RN notified. Will continue to attempt.
[2024-10-16] MEDS: VENLAFAXINE HCL 37.5 MG TABLET PO ×2 (10:58→21:50)
[2024-10-16] MEDS: APIXABAN 5 MG TABLET PO ×2 (10:58→17:50)
[2024-10-16] MEDS: METOPROLOL SUCCINATE EXT REL 50 MG TABCR PO (10:58)
[2024-10-16] MEDS: LOSARTAN POTASSIUM 50 MG TABLET PO (10:58)
[2024-10-16] MEDS: GABAPENTIN 300 MG CAPSULE PO ×3 (10:58→17:50)
--- NOTE | 2024-10-16 11:33 | PC.NURSE ---
Physical therapy reported to this RN that the patient did not want to work with them this morning stating She said, 'I just got back to bed and I am a little shaky'. The patient had been up to the chair prior to their arrival to the room, giving herself a bed bath.
--- NOTE | 2024-10-16 17:49 | P.PNPL_ITS ---
Progress Note: A&P Assessment and Plan (1) Acute hypercapnic respiratory failure: Code(s): J96.02 - Acute respiratory failure with hypercapnia Status: Acute Assessment and Plan: She had acute decompensation with worsening over hypercapnic hypoxemic respiratory failure, noncompliant with home NIV. She has been wearing it about an hour or so while awake at home, arrived with pCO2 in the 70s with pH at the low end of normal almost compensated. She has been using [facility] [phone], with [facility]. I spoke with Josselyn today, she gave me information re: her NIV. We saw her in March 2023, no follow-up. She needs a COPD regimen including 3 long-acting medications delivered in a manner that she can tolerate. If she has inspiratory capacity and can use an inhaler, she may stay on the Symbicort and the Spiriva with rescue albuterol as needed. She may benefit from an add on therapy such as roflumilast. She has no elevated eosinophils in our system. She may have PFTs somewhere else. Her family tells me that they want her to follow up in our office at [place] and take over her pulmonary management. (2) COPD exacerbation: Code(s): J44.1 - Chronic obstructive pulmonary disease with (acute) exacerbation Status: Acute Assessment and Plan: COPD exacerbation; she had no infiltrate on imaging; responded to treatment (3) Tobacco abuse: Code(s): Z72.0 - Tobacco use Status: Acute Assessment and Plan: She smoked until this admission. Tobacco cessation is reid to improvement. (4) Pulmonary cachexia due to chronic obstructive pulmonary disease: Code(s): R64 - Cachexia; J44.9 - Chronic obstructive pulmonary disease, unspecified Status: Acute Assessment and Plan: BMI is 16 consistent with pulmonary cachexia, poor appetite, increased work of breathing. Weight loss 20 lb over several months. This is a marker of poor pr ognosis. Plan Plan 1) She is significantly improved, and she appears to be stable enough for discharge. I do not have any records from her other healthcare providers, and she is not aware of some of the information that I need. I called her daughter in law, Phuong Mena [phone], left a message for her to call [phone], our doctor work area on [address] [facility], to talk with me about 's non-invasive machine, who the DME is, medications, follow up plans. 2) I called Luz Sheth's DNP office at [facility], , left a message for her to call me to discuss the patient's admission, her home medications, NIV settings, possibly a follow up plan. The patient is telling me today that she wants to follow up here at [place], wants to have treatment through our facility. She understands that using her device, she calls it CPAP, when sleeping is critically important, and she CAN use it during the day but the benefit is during sleep when her breathing is less stable. A noninvasive device helps to ventilate, improved the elimination of carbon dioxide. This is critically important to her survival. I want to find out what has been the patient's baseline is and when she had her last visit. 3) I spoke with her honestly about her end stage lung disease. It is never too late to stop smoking. She needs close follow-up, a coherent medication regimen, an out patient PFT, a Home O2 evaluation before leaving today, and plans for pulmonary rehabilitation when she stabilizes after discharge. This can be arranged from our office. 4) I spoke with [facility] in [place], and she is on NIV, which is what she needs. She is on volume targeted pressure support, breath rate 12-16 per minute, tidal volume 6 8 mils per kg, minimum pressure support 4-10 cm, maximum pressure support 10-25 cm, peep 4-20 cm, minimum PEEP of 4-10 cm, maximum peep 10-20 cm, high-pressure alarm 60-65 cm. For the order was written 08/01/2024, the machine was set up on 08/20/2024, her average usage is 1.4 hours, maximum usage on 1 day was 5 hours, she has put the machine on .This is substandard and not beneficial. Medications for discharge: 1) Prednisone taper starting at 40 mg. 2 ) Oral doxycycline to complete 7 days total. 3) Symbicort 160/4.52 puffs b.i.d. rinse and spit after use & Spiriva Respimat 2.50 mcg; 2 puffs once a day Albuterol rescue inhaler 4) Same settings on NIV that she has at home; She is on volume targeted pressure support, breath rate 12-16 per minute, tidal volume 6 8 mils per kg, minimum pressure support 4-10 cm, maximum pressure support 10-25 cm, peep 4-20 cm, minimum PEEP of 4-10 cm, maximum peep 10-20 cm, high-pressure alarm 60-65 cm. 5) Tobacco cessation; she is getting information and I spoke with her 5 minutes re: tobacco cessation 6) Follow up in our office in 2-3 weeks; she has to call and make appointment 7) Home O2 study today; sat is 96% on 3 L so this can be weaned. 2 L at rest, 3 L with exertion and sleep Her Home O2 study shows that she needed 3 L with rest and exertion however her saturation has been 95% + on 3 L so I am changing her order to 2 L resting and use oximeter to maintain sat 90-94% on O2. 8) I discussed with Serena Albarran PA-C to coordinate her discharge. Alpha-1 genotype testing has been sent, will follow up in the office. Subjective Date/time seen: 10/17/24 15:05 Interval history: 10/15/2024; new consult; Carly Oliveira is a 64-year-old female with COPD, tobacco use, recurrent respiratory failure, admitted October 14 with increased shortness of breath for several days. She has used her inhalers without improvement. She has had no cough, fever, chills, nausea or vomiting. She told another doctor that she has numbness to her lower extremities and she wants to see a neurologist if possible. She tells me that she has a PAP machine at home, uses it although not as much as she could, maybe an hour a day. I called her son and daughter in law on the phone to get additional history. Her son Felecia and his take care of her, and they said that over the last few weeks, she has been feeling worse, decided to use her noninvasive machine but she is only using it about an hour or maximum 2 hours while awake during the day so this is not providing any benefit. I explained that with the chronic elevated CO2 she needs to be using this device while sleeping. That is when the noninvasive is able to improve her ventilation and lower her carbon dioxide levels. reports 20 lb wt loss over several months Tells me that she has inhalers home and nebulizer machine, uses them intermittently. Her son told me that she is now using Symbicort and Spiriva which is a combination for COPD. Her home medication list here on admission showed that she was on Trelegy, a triple inhaler and also budesonide nebulized twice a day. These 2 medications would not be used together as the budesonide is an inhaled corticosteroid. I think the family is not certain about her medications and they are not certain about what she needs to be on. It was never clear who was prescribing her medications. We saw the patient in March of 2023 but she never followed up in our office. Her primary care doctor Yang Rosales retired and she is now followed by Luz Sheth NP. [facility] in [place] The patient's daughter in law is Phuong Mena, to Felecia, patient's son. 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 Her number is [phone] 10/17/2024; follow up; She appears much improved; she is not confused, she wants to go home, wants to follow up in our office. She understands using her noninvasive device is important, and using it while sleeping is how it does the most benefit. She does not know who her [employer] company is, she cannot remember the name of her healthcare provider but she says that she has seen at [place]. I called the [facility] office and left a message for Luz Sheth DNP to call me to discuss. PMH: COPD, CAD, chronic respiratory failure, atrial fibrillation, HTN, has VIK, has not been able to tolerate noninvasive devices at home. DATA * 10/15/2024 sodium 137, potassium 4.8, chloride 91, carbon dioxide greater than 40, BUN 28, creatinine 0.61, glucose 152, calcium 9.6. White blood cell count 3.9, hemoglobin 11.8, hematocrit 39.5%, platelets 197k * ABGs October 14 pH 7.35, pCO2 78, PO2 84 saturation 95% on 4 L; on BiPAP 02/22 and 30%= pH 7.35 pCO2 77 PO2 83 HC03 of 42 saturation 93%. 03/27/23 03/27/2310/14 pH 7.202 7.4 7.35 7.35 7.35 pCO2 123 62.7 78 77 74.3 pO2 107 69 84 83 93.6 HCO3 47 39 43 42 40.4 sat 96% 95% 95% 96.5% O2 delivery NRM NIV NC NC O2 15 L 65% 4L 30% 3L rate 20 IPAP 12 EPAP 6 * 10/14/2024; CXR Impression: : No acute cardiopulmonary disease. Coarse bilateral breast calcifications. Recommend correlation with diagnostic bilateral mammogram and possible additional ultrasound. Review of Systems Review of Systems: All systems reviewed & are unremarkable except as noted in HPI and below Exam Narrative: GEN: Alert, oriented, not in distress. She is wearing O2 nasal cannula 3 L.min. sat is 95-96%, and O2 can be weaned. Frail. NECK: Trachea is midline CHEST: Equal air entry, symmetric excursion, hyperinflated thorax with extremely diminished breath sounds, no wheezing. No crackles. CV: Distant S1S2 no m/g/r ABD : (+) bowel sounds Extremities : no clubbing, cyanosis, or edema. PSYCH: Much better mentation. Gait is not tested. Objective Data Vital Signs Vital Signs: Vital Signs - 24 hr 10/15/24 18:00 10/15/24 19:47 10/15/24 20:00 Temperature 36.7 C Pulse Rate 96 97 Respiratory Rate 17 Blood Pressure 118/51 L Pulse Oximetry 97 99 Oxygen Delivery Nasal Cannula Oxygen Flow Rate 2.5 Fraction of Inspired Oxygen 10/15/24 20:00 10/15/24 20:30 10/15/24 20:30 Temperature Pulse Rate 102 H 103 H Respiratory Rate 20 Blood Pressure Pulse Oximetry 96 Oxygen Delivery Nasal Cannula Oxygen Flow Rate 3 Fraction of Inspired Oxygen 10/15/24 20:45 10/15/24 22:00 10/15/24 23:30 Temperature Pulse Rate 98 97 99 Respiratory Rate 20 22 H Blood Pressure Pulse Oximetry 94 Oxygen Delivery BiPAP Oxygen Flow Rate Fraction of Inspired Oxygen 10/15/24 23:50 10/16/24 00:00 10/16/24 00:00 Temperature 37.0 C Pulse Rate 106 H 89 Respiratory Rate 17 Blood Pressure 111/65 Pulse Oximetry 97 95 Oxygen Delivery BiPAP Oxygen Flow Rate Fraction of Inspired Oxygen 30 10/16/24 01:21 10/16/24 01:21 10/16/24 01:29 Temperature Pulse Rate 88 90 Respiratory Rate 24 H 24 H 23 H Blood Pressure Pulse Oximetry 98 Oxygen Delivery BiPAP Oxygen Flow Rate Fraction of Inspired Oxygen 10/16/24 02:00 10/16/24 03:18 10/16/24 04:00 Temperature 36.5 C Pulse Rate 93 94 Respiratory Rate 17 Blood Pressure 128/64 Pulse Oximetry 96 95 Oxygen Delivery BiPAP Oxygen Flow Rate Fraction of Inspired Oxygen 30 10/16/24 04:00 10/16/24 06:00 10/16/24 07:15 Temperature Pulse Rate 90 69 Respiratory Rate Blood Pressure Pulse Oximetry 96 Oxygen Delivery Nasal Cannula Oxygen Flow Rate 3 Fraction of Inspired Oxygen 32 10/16/24 07:42 10/16/24 08:00 10/16/24 08:00 Temperature 36.8 C Pulse Rate 91 102 H 102 H Respiratory Rate 23 H 20 Blood Pressure 135/66 Pulse Oximetry 97 97 Oxygen Delivery Nasal Cannula Oxygen Flow Rate 3 Fraction of Inspired Oxygen 32 10/16/24 08:05 10/16/24 08:10 10/16/24 10:00 Temperature Pulse Rate 88 90 100 Respiratory Rate 20 20 Blood Pressure Pulse Oximetry Oxygen Delivery Oxygen Flow Rate Fraction of Inspired Oxygen 10/16/24 10:58 10/16/24 11:49 10/16/24 12:00 Temperature 36.8 C Pulse Rate 110 H 102 H 102 H Respiratory Rate 21 H 21 H Blood Pressure 122/62 Pulse Oximetry 97 97 Oxygen Delivery Nasal Cannula Oxygen Flow Rate 3 Fraction of Inspired Oxygen 32 10/16/24 12:00 10/16/24 13:34 10/16/24 13:43 Temperature Pulse Rate 102 H 105 H 100 Respiratory Rate Blood Pressure Pulse Oximetry Oxygen Delivery Oxygen Flow Rate Fraction of Inspired Oxygen 10/16/24 14:00 10/16/24 15:43 Temperature 36.7 C Pulse Rate 104 H 98 Respiratory Rate 20 Blood Pressure 125/66 Pulse Oximetry 97 Oxygen Delivery Oxygen Flow Rate Fraction of Inspired Oxygen Intake/Output Intake/Output: Intake & Output 10/13/24 10/14/24 10/15/24 10/16/24 23:59 23:59 23:59 23:59 Intake Total 100 1800 480 Output Total 300 Balance 100 1500 480 Meds/Results Medications: Active Medications Generic Name Dose Route Start Last Admin Trade Name Freq PRN Reason Stop Dose Admin Albuterol/Ipratropium 3 ml 10/15/24 02:00 10/16/24 13:34 Ipratropium 0.5 Mg/Albuterol Sulfate 2.5 Mg Ampul.Neb 3 Ml INHALATION 3 ml Q6HRT JIHAN Administration Apixaban 5 mg 10/15/24 09:00 10/16/24 10:58 Apixaban 5 Mg Tablet PO 5 mg BID JIHAN Administration Atorvastatin Calcium 80 mg 10/15/24 21:00 10/15/24 20:23 Atorvastatin 40 Mg Tablet PO 80 mg HS JIHAN Administration Gabapentin 300 mg 10/15/24 09:00 10/16/24 14:07 Gabapentin 300 Mg Capsule PO 300 mg TID JIHAN Administration Doxycycline Hyclate 100 mg/ 100 mls @ 100 mls/hr 10/15/24 07:00 10/16/24 06:11 Sodium Chloride IVPB 100 mls/hr Q12H JIHAN Administration Losartan Potassium 50 mg 10/15/24 09:00 10/16/24 10:58 Losartan Potassium 50 Mg Tablet PO 50 mg DAILY JIHAN Administration Methylprednisolone Sodium Succinate 62.5 mg 10/15/24 02:00 10/16/24 14:07 Methylprednisolone Sod Succ 125 Mg Vial IV PUSH 62.5 mg Q6H JIHAN Administration Metoprolol Succinate 50 mg 10/15/24 09:00 10/16/24 10:58 Metoprolol Succinate Ext Rel 50 Mg Tabcr PO 50 mg DAILY JIHAN Administration Morphine Sulfate 2 mg 10/14/24 18:23 Morphine Sulfate (*Crx) 2 Mg/Ml Inj IV PUSH Q2H PRN Pain Rated 7-10 Ondansetron HCl 4 mg 10/14/24 18:23 Ondansetron Inj 4 Mg/2 Ml Vial IV PUSH Q4H PRN Nausea Sodium Chloride 6 ml 10/15/24 20:00 10/16/24 13:34 Sodium Chlor 3% 15 Ml Neb (Respiratory Therapy) INHALATION 6 ml TIDRT JIHAN Administration Venlafaxine HCl 37.5 mg 10/14/24 21:00 10/16/24 10:58 Venlafaxine Hcl 37.5 Mg Tablet PO 37.5 mg Q12HR JIHAN Administration Radiology Results: ITS Impressions Chest X-Ray 10/14/24 12:53 Impression: 1: No acute cardiopulmonary disease. 2: Coarse bilateral breast calcifications. Recommend correlation with diagnostic bilateral mammogram and possible additional ultrasound. Head CT 10/16/24 14:17 IMPRESSION: 1. Mild scattered white matter hypoattenuation consistent with chronic small vessel ischemic disease. Labs Labs: Laboratory Results - last 24 hr 10/16/24 03:35 WBC 8.5 RBC 3.53 L Hgb 10.4 L Hct 33.9 L MCV 96.0 MCH 29.5 MCHC 30.7 L RDW 13.2 Plt Count 199 MPV 10.0 Sodium 134 L Potassium 4.2 Chloride 95 L Carbon Dioxide 38 H Anion Gap 1 L BUN 27 H Creatinine 0.54 L Estim Creat Clear Calc 67 Estimated GFR > 60 Glucose 153 H Calcium 9.1 Total Bilirubin 0.9 AST 27 ALT 17 Alkaline Phosphatase 43 Total Protein 6.3 Albumin 3.8
[2024-10-16] MEDS: DOXYCYCLINE IV 100 MG in SODIUM CHLORIDE 0.9% IV 100 ML 75 ML IVPB (18:28)
[2024-10-16] MEDS: ATORVASTATIN 40 MG TABLET 80 MG PO (21:50)
[2024-10-17] VITALS (12 sets, daily range): BP systolic 137–140; BP diastolic 68–69; PULSE 85–100; RESP 17–28; TEMP 36.2–36.4; O2SAT 95–100
[2024-10-17] MEDS: IPRATROPIUM 0.5 MG/ALBUTEROL SULFATE 2.5 MG AMPUL.NEB 3 ML INHALATION ×3 (01:29→15:13)
[2024-10-17] MEDS: DOXYCYCLINE IV 100 MG in SODIUM CHLORIDE 0.9% IV 100 ML 75 ML IVPB (06:14)
[2024-10-17 06:22] LABS: Hematocrit 36.4 % (37.0-47.0); Hemoglobin 10.8 g/dL (12.0-15.0); Mean Corpuscular HGB Conc 29.7 g/dl (32-36); Mean Corpuscular Hemoglobin 29.2 pg (26-34); Mean Corpuscular Volume 98.4 fl (80-100); Platelet Count Result 192 k/mm3 (150-375); Red Blood Count 3.70 M/mm3 (4.2-5.4); White Blood Count 10.4 K/mm3 (4.5-10.0)
[2024-10-17] MEDS: SODIUM CHLORIDE 0.9% IV 100 ML (06:35)
[2024-10-17 06:44] LABS: Alanine Aminotransferase 24 U/L (6-35); Albumin Level 3.7 g/dL (3.5-5.1); Alkaline Phosphatase 50 U/L (38-126); Anion Gap 4 mmol/L (4-12); Aspartate Amino Transferase 35 U/L (14-36); Bilirubin,Total 0.6 mg/dL (0.2-1.3); Blood Urea Nitrogen 24 mg/dL (7-17); Calcium 9.2 mg/dL (8.4-10.2); Carbon Dioxide 35 mmol/L (22-30); Chloride 100 mmol/L (98-107); Estimated CRCL calculation 67 ml/min; Estimated Glomerular Filt Rate > 60; Glucose 200 mg/dL (65-110); Potassium 4.5 mmol/L (3.4-5.0); Sodium 139 mmol/L (137-145); Total Protein 6.0 g/dL (6.3-8.2)
--- NOTE | 2024-10-17 07:22 | P.PNIM_ITS ---
Progress Note: A&P Assessment and Plan (1) Acute and chronic respiratory failure, unspecified whether with hypoxia or hypercapnia: Code(s): J96.20 - Acute and chronic respiratory failure, unspecified whether with hypoxia or hypercapnia Status: Acute Assessment and Plan: * Chest x-ray with coarse bilateral breast calcifications but no focal opacities a pulmonary edema identified. * ABG in the ER performed demonstrated pH 7.35 a, pCO2 77, bicarb 42.4 on BiPAP. Has since been able to wean back to baseline 3L NC. * Oxygen supplementation: 3L NC, baseline oxygen supplementation. Intermittent BIPAP during sleep. * Suspected cause: COPD exacerbation * EKG: sinus tachycardia * See COPD exacerbation plan below * Pulmonology consult * NIV to assist with management of hypercapnia * Steroids, bronchodilator therapy and continue empiric antibiotics * Alpha 1 genotype testing (2) COPD exacerbation: Code(s): J44.1 - Chronic obstructive pulmonary disease with (acute) exacerbation Status: Acute Assessment and Plan: * Chest x-ray with coarse bilateral breast calcifications but no focal opacities a pulmonary edema identified. * ABG in the ER performed demonstrated pH 7.35 a, pCO2 77, bicarb 42.4 on BiPAP. Was able to wean back to baseline 3L NC. Placed back on bipap for sleep. Repeat ABG on 10/15 this am to reassess hypercapnia showed slight improvement. * Continue doxycycline 100 mg on 10/14 * Solu-Medrol, Duonebz q6H * Monitor vital signs, I&Os, neuro status and patient is a fall risk * Monitor serum electrolytes, cultures and CBC * Monitor Oxygen saturation, Oxygen via NC; wean oxygen as tolerated, keep SpO2 greater than 88% * Pulmonology consulted, appreciate recommendations (3) Atrial fibrillation: Code(s): I48.91 - Unspecified atrial fibrillation Status: Acute Assessment and Plan: * EKG: sinus tachycardia * Current home medication: Metoprolol 50 mg daily * Anticoagulation: Eliquis 5 mg BID (4) Hypertension: Qualifiers: Hypertension type: primary hypertension Qualified Code(s): I10 - Essential (primary) hypertension Code(s): I10 - Essential (primary) hypertension Status: Acute Assessment and Plan: Chronic, continue home medications - losartan 50 mg daily - metoprolol 50 mg daily - blood pressures remain stable, continue to monitor (5) Marijuana abuse: Code(s): F12.10 - Cannabis abuse, uncomplicated Status: Acute Subjective Date/time seen: 10/17/24 07:22 Interval history: 64-year-old female with a past medical history of atrial fibrillation on Eliquis, COPD with chronic respiratory failure with hypoxia and hypercarbia, CAD, PAD, anxiety and depression, hypertension presents to the hospital for shortness of breath. Review of Systems Review of Systems: All systems reviewed & are unremarkable except as noted in HPI and below (Subjective/HPI) Exam Narrative: AF HR General: female in no acute respiratory distress who is nontoxic appearing, lying semi recumbent in bed. HEENT: Normocephalic. Atraumatic. Extraocular movement intact. Sclera clear and anicteric. No facial asymmetry. Chest: Lungs are diminished to auscultation bilaterally. No wheezes or crackles. CV: Heart was regular rate and rhythm. Abd: Abdomen was soft. Nontender. Nondistended. Positive bowel sounds. Ext: No clubbing, cyanosis, or edema. DP pulses bilaterally. Neuro: Patient is alert and oriented x4. Speech is clear. Objective Data Vital Signs Vital Signs: Vital Signs - 24 hr 10/16/24 07:42 10/16/24 08:00 10/16/24 08:00 Temperature 98.3 F Pulse Rate 91 102 H 102 H Respiratory Rate 23 H 20 Blood Pressure 135/66 Pulse Oximetry 97 97 Oxygen Delivery Nasal Cannula Oxygen Flow Rate 3 Fraction of Inspired Oxygen 32 10/16/24 08:05 10/16/24 08:10 10/16/24 10:00 Temperature Pulse Rate 88 90 100 Respiratory Rate 20 20 Blood Pressure Pulse Oximetry Oxygen Delivery Oxygen Flow Rate Fraction of Inspired Oxygen 10/16/24 10:58 10/16/24 11:49 10/16/24 12:00 Temperature 98.3 F Pulse Rate 110 H 102 H 102 H Respiratory Rate 21 H 21 H Blood Pressure 122/62 Pulse Oximetry 97 97 Oxygen Delivery Nasal Cannula Oxygen Flow Rate 3 Fraction of Inspired Oxygen 32 10/16/24 12:00 10/16/24 13:34 10/16/24 13:43 Temperature Pulse Rate 102 H 105 H 100 Respiratory Rate Blood Pressure Pulse Oximetry Oxygen Delivery Oxygen Flow Rate Fraction of Inspired Oxygen 10/16/24 14:00 10/16/24 15:43 10/16/24 19:59 Temperature 98.0 F Pulse Rate 104 H 98 96 Respiratory Rate 20 20 Blood Pressure 125/66 Pulse Oximetry 97 Oxygen Delivery Oxygen Flow Rate Fraction of Inspired Oxygen 10/16/24 20:00 10/16/24 20:03 10/16/24 20:15 Temperature Pulse Rate 99 99 Respiratory Rate 20 20 Blood Pressure Pulse Oximetry 96 96 Oxygen Delivery Nasal Cannula Nasal Cannula Oxygen Flow Rate 3 3 Fraction of Inspired Oxygen 32 32 10/16/24 20:30 10/16/24 23:02 10/17/24 01:27 Temperature 96.6 F L Pulse Rate 107 H 100 99 Respiratory Rate 16 24 H 23 H Blood Pressure 134/64 Pulse Oximetry 93 96 97 Oxygen Delivery BiPAP BiPAP Oxygen Flow Rate Fraction of Inspired Oxygen 10/17/24 01:30 10/17/24 04:13 10/17/24 06:15 Temperature 97.5 F L Pulse Rate 99 100 85 Respiratory Rate 24 H 28 H 19 Blood Pressure 137/68 Pulse Oximetry 97 96 Oxygen Delivery BiPAP Oxygen Flow Rate Fraction of Inspired Oxygen Intake/Output Intake/Output: Intake & Output 10/14/24 10/15/24 10/16/24 10/17/24 23:59 23:59 23:59 23:59 Intake Total 100 1800 1400 Output Total 300 Balance 100 1500 1400 Meds/Results Medications: Active Medications Generic Name Dose Route Start Last Admin Trade Name Freq PRN Reason Stop Dose Admin Albuterol/Ipratropium 3 ml 10/15/24 02:00 10/17/24 01:29 Ipratropium 0.5 Mg/Albuterol Sulfate 2.5 Mg Ampul.Neb 3 Ml INHALATION 3 ml Q6HRT JIHAN Administration Apixaban 5 mg 10/15/24 09:00 10/16/24 17:50 Apixaban 5 Mg Tablet PO 5 mg BID JIHAN Administration Atorvastatin Calcium 80 mg 10/15/24 21:00 10/16/24 21:50 Atorvastatin 40 Mg Tablet PO 80 mg HS JIHAN Administration Gabapentin 300 mg 10/15/24 09:00 10/16/24 17:50 Gabapentin 300 Mg Capsule PO 300 mg TID JIHAN Administration Doxycycline Hyclate 100 mg/ 100 mls @ 100 mls/hr 10/15/24 07:00 10/17/24 06:14 Sodium Chloride IVPB 75 mls/hr Q12H JIHAN Administration Losartan Potassium 50 mg 10/15/24 09:00 10/16/24 10:58 Losartan Potassium 50 Mg Tablet PO 50 mg DAILY JIHAN Administration Methylprednisolone Sodium Succinate 62.5 mg 10/15/24 02:00 10/17/24 02:38 Methylprednisolone Sod Succ 125 Mg Vial IV PUSH 62.5 mg Q6H JIHAN Administration Metoprolol Succinate 50 mg 10/15/24 09:00 10/16/24 10:58 Metoprolol Succinate Ext Rel 50 Mg Tabcr PO 50 mg DAILY JIHAN Administration Morphine Sulfate 2 mg 10/14/24 18:23 Morphine Sulfate (*Crx) 2 Mg/Ml Inj IV PUSH Q2H PRN Pain Rated 7-10 Ondansetron HCl 4 mg 10/14/24 18:23 Ondansetron Inj 4 Mg/2 Ml Vial IV PUSH Q4H PRN Nausea Sodium Chloride 6 ml 10/15/24 20:00 10/16/24 19:59 Sodium Chlor 3% 15 Ml Neb (Respiratory Therapy) INHALATION 6 ml TIDRT JIHAN Administration Venlafaxine HCl 37.5 mg 10/14/24 21:00 10/16/24 21:50 Venlafaxine Hcl 37.5 Mg Tablet PO 37.5 mg Q12HR JIHAN Administration Radiology Results: ITS Impressions Chest X-Ray 10/14/24 12:53 Impression: 1: No acute cardiopulmonary disease. 2: Coarse bilateral breast calcifications. Recommend correlation with diagnostic bilateral mammogram and possible additional ultrasound. Head CT 10/16/24 14:17 IMPRESSION: 1. Mild scattered white matter hypoattenuation consistent with chronic small vessel ischemic disease. Labs Labs: Laboratory Results - last 24 hr 10/17/24 05:52 WBC 10.4 H RBC 3.70 L Hgb 10.8 L Hct 36.4 L MCV 98.4 MCH 29.2 MCHC 29.7 L RDW 13.4 Plt Count 192 MPV 9.7 Sodium 139 Potassium 4.5 Chloride 100 Carbon Dioxide 35 H Anion Gap 4 BUN 24 H Creatinine 0.54 L Estim Creat Clear Calc 67 Estimated GFR > 60 Glucose 200 H Calcium 9.2 Total Bilirubin 0.6 AST 35 ALT 24 Alkaline Phosphatase 50 Total Protein 6.0 L Albumin 3.7 Quality VTE Prophylaxis VTE prophylaxis: pharmacologic ordered
[2024-10-17] MEDS: SODIUM CHLOR 3% 15 ML NEB (RESPIRATORY THERAPY) 6 ML INHALATION ×2 (08:08→15:12)
[2024-10-17] MEDS: LOSARTAN POTASSIUM 50 MG TABLET PO (09:37)
[2024-10-17] MEDS: VENLAFAXINE HCL 37.5 MG TABLET PO (09:37)
[2024-10-17] MEDS: GABAPENTIN 300 MG CAPSULE PO ×3 (09:37→17:30)
[2024-10-17] MEDS: APIXABAN 5 MG TABLET PO ×2 (09:37→17:30)
[2024-10-17] MEDS: METOPROLOL SUCCINATE EXT REL 50 MG TABCR PO (09:37)
--- NOTE | 2024-10-17 15:24 | P.DS_ITS ---
DS: Admitting Diagnosis Discharge Date 10/17/2024 Admitting Diagnosis Acute respiratory failure with hypercapnia COPD exacerbation AFib Hypertension Tobacco abuse Marijuana use DS: Discharge Diagnosis Discharge Diagnosis (1) Acute hypercapnic respiratory failure: Code(s): J96.02 - Acute respiratory failure with hypercapnia Status: Acute (2) COPD exacerbation: Code(s): J44.1 - Chronic obstructive pulmonary disease with (acute) exacerbation Status: Acute (3) Atrial fibrillation: Code(s): I48.91 - Unspecified atrial fibrillation Status: Acute (4) Hypertension: Qualifiers: Hypertension type: primary hypertension Qualified Code(s): I10 - Essential (primary) hypertension Code(s): I10 - Essential (primary) hypertension Status: Acute (5) Marijuana abuse: Code(s): F12.10 - Cannabis abuse, uncomplicated Status: Acute (6) Tobacco abuse: Code(s): Z72.0 - Tobacco use Status: Acute DS: Summary Hospital Course Reason for hospitalization: Acute respiratory failure with hypercapnia COPD exacerbation AFib Hypertension Tobacco abuse Marijuana use Hospital Course: 64-year-old female with a past medical history of atrial fibrillation on Eliquis, COPD with chronic respiratory failure with hypoxia and hypercarbia, CAD, PAD, anxiety and depression, hypertension presents to the hospital for shortness of breath. Not meeting sepsis criteria on admission. Chest x-ray with coarse bilateral breast calcifications but no focal opacities a pulmonary edema identified. ABG in the ER performed demonstrated pH 7.35 a, pCO2 77, bicarb 42.4 on BiPAP. Was able to wean back to baseline 3L NC and hypercapnia improved. Patient started on antibiotic and steroid for COPD exacerbation. Pulmonology consulted. Patient has acute decompensation with worsening hypercapnic hypoxemic respiratory failure, noncompliant with home NIV. Patient significantly improved and pulmonology agreed with discharge with close pulmonology follow up. Patient transitioned to oral antibiotic to complete the course for COPD exacerbation as well as a prednisone taper. She remained on her symbicort, spiriva and albuterol per pulmonology recommendations. Patient had a home o2 evaluation prior to discharge with saturations of 96% on baseline 3LNC. Oxygen weaned per pulmonology recommendations to 2L at rest and 3L with exertion and sleep. Strongly encouraged patient to use her NIV as prescribed. Strongly encouraged smoking cessation. Patient had no complaints at time of discharge denying any chest pain, shortness a breath, palpitations, nausea/vomiting, and abdominal pain. Patient states that she feels back to her baseline and is ready for discharge. Patient was evaluated by PT who is recommending home health however patient denies any home health needs at this time, refusing the therapy. Patient discharged home in a stable condition. She is to follow up with her primary care provider in 1 week and pulmonology as scheduled. Status at Discharge Functional status at discharge: independent ambulation Time Spent with Patient Time attestation: Total time spent providing and/or coordinating discharge services: Time spent: Greater than 30 minutes Exam Narrative: AF HR96 RR 18 SpO2 95% (baseline 3L NC) BP 137/68 General: female in no acute respiratory distress who is nontoxic appearing, lying semi recumbent in bed. HEENT: Normocephalic. Atraumatic. Extraocular movement intact. Sclera clear and anicteric. No facial asymmetry. Chest: Lungs are clear to auscultation bilaterally. No wheezes or crackles. CV: Heart was regular rate and rhythm. Abd: Abdomen was soft. Nontender. Nondistended. Positive bowel sounds. Ext: No clubbing, cyanosis, or edema. DP pulses bilaterally. Neuro: Patient is alert and oriented x4. Speech is clear. DS: Data Data Completed and Pending Completed studies during hospitalization: head ct chest xr Labs on day of discharge: Labs from last 24 hours 10/17/24 05:52 WBC 10.4 H RBC 3.70 L Hgb 10.8 L Hct 36.4 L MCV 98.4 MCH 29.2 MCHC 29.7 L RDW 13.4 Plt Count 192 MPV 9.7 Sodium 139 Potassium 4.5 Chloride 100 Carbon Dioxide 35 H Anion Gap 4 BUN 24 H Creatinine 0.54 L Estim Creat Clear Calc 67 Estimated GFR > 60 Glucose 200 H Calcium 9.2 Total Bilirubin 0.6 AST 35 ALT 24 Alkaline Phosphatase 50 Total Protein 6.0 L Albumin 3.7 Preliminary micro results at discharge 10/14/24 18:45 Blood Culture - Preliminary Blood 10/14/24 18:45 Blood Culture - Preliminary Blood Discharge Plan Discharge Attending physician on discharge: Flavio Greco Consulting providers: Michael Sal; Lynn Kinney; Alexis Osman; Faizan Thompson; Ravi Webber Discharging Clinician: Jaclyn Albarran Anticipated Discharge Date/Time: 10/17/24 12:25 Patient Disposition: Home Activity: as tolerated Diet: as tolerated and heart healthy Discharge Instructions: Discharge disposition: Patient admitted to the hospital for shortness of breath secondary to a COPD exacerbation Evaluated by pulmonology. Take medications as prescribed Doxycycline twice a day, course to be completed on October 21 Prednisone taper, continue as prescribed. Attached is information on these medications Continue your COPD medications: Symbicort 160/4.52 puffs b.i.d. rinse and spit after use, Spiriva 1.25 mg 2 puffs daily, rescue albuterol as needed Strongly encourage consistent use of NIV overnight Continue home settings: Breath rate 12-16 per minute, tidal volume 6 8 mils per kg, minimum pressure support 4-10 cm, maximum pressure support 10-25 cm, peep 4-20 cm, minimum PEEP of 4-10 cm, maximum peep 10-20 cm, high-pressure alarm 60-65 cm. Strongly encourage smoking cessation. NO SMOKING. Stopping smoking is the most important choice you can make for your health. There is a financial cost, as well as the impact on your health, health of fami ly members and your pets. We recommend picking a quit date, eliminating tobacco from your house, finding alternative activities when you have a craving, and knowing that a craving lasts 5-6 minutes. Nicotine replacement therapy can be helpful, including patches, lozenges, gum and inhalers. 7-394-STUAOFJ is a toll free number with a live person who will talk with you about stopping smoking. Follow up with pulmonology 2-3 weeks, call for appt, . Monitor blood pressures. Take caution while standing, rising, or moving Change positions slowly taking a break between each position change If you standing feel dizzy sit back down and take a break Encouraged to continue with yearly vaccinations Return to the emergency department if he developed sudden shortness of breath, chest pain, nausea, vomiting, upset stomach or intractable diarrhea Return to the emergency department if you develop fever greater than 100.5 Follow-up with the primary care physician within 1-2 weeks Thank you for [facility] for your healthcare needs Patient Instructions: Antibiotic Form, Doxycycline (By mouth), Prednisone (By mouth), How to Stop Smoking (DC), COPD (Chronic Obstructive Pulmonary Disease) (DC) Patient Language: Irish Stand Alone Forms: General Discharge Information Follow-up/Referrals: Lynn Kinney MD [Physician] - Call for Appointment PHYSICIAN NOT ON STAFF,NONSTAFF [Primary Care Provider] - 1 Week Discharge Medications: New doxycycline hyclate 100 mg Tablet 100 mg PO Q12HR Qty: 9 0RF prednisone 10 mg tablet 10 mg PO DIRECTED Qty: 20 0RF Rx Instructions: see taper instructions 40 mg (4 tabs) for 2 days, then 30 mg (3 tabs) 2 days, then 20 mg (2 tabs) 2 days, then 10 mg (1 tab) 2 days, then stop Continued metoprolol succinate 50 mg tablet extended release 24 hr 50 mg PO DAILY venlafaxine 37.5 mg tablet 37.5 mg PO BID gabapentin 300 mg capsule 300 mg PO TID budesonide 0.5 mg/2 mL suspension for nebulization 0.5 mg inhalation BID albuterol sulfate 90 mcg/actuation HFA aerosol inhaler 2 puff INHALATION Q6H PRN (Reason: sob) Eliquis 5 mg tablet 5 mg PO BID losartan 50 mg tablet 50 mg PO DAILY atorvastatin 80 mg tablet 80 mg PO HS Trelegy Ellipta 100-62.5-25 mcg blister with device 1 inh inhalation DAILY 30 Days Qty: 60 0RF Date of admission: 10/14/24 18:23 Primary Care Provider: PHYSICIAN NOT ON STAFF,NONSTAFF Admitting Provider: Charanjit Lugo Attending physician on admission: Jaclyn Albarran Condition: Stable Hospitalist MIPS Heart Failure (Exclusion) Patient has history of Heart Transplant or Left Ventricular Assistive Device?: No IF YES, STOP HERE Heart Failure (Qualifier) Patient has current or prior documentation of LVEF less than or equal to 40%, or mod/servere depressed LVSF?: No IF NO, STOP HERE
--- NOTE | 2024-10-17 16:52 | HOMEO2EVAL ---
Evaluation was performed at [facility] Home O2 eval completed. Resting 3l 94% activity 3l 91% walked 500 feet. No change from current home O2 settings.
--- NOTE | 2024-10-17 18:00 | PC.NURSE ---
On 10/17/24, the MANAGER OF FINANCIAL,Kayla Boogie, provided care and completed [employer]. documentation on this patient. I have reviewed the MANAGER OF FINANCIAL's documentation and agree with the findings.
== END 2024-10-17 18:00 | disposition home or self-care (01) | DRG 140 ==
LOC: ANHED 18:02 → ANHIMU 19:23 → ANH3MEDSUR 10-17 13:03 → ANHIMU 10-18 15:00
PROVIDERS: Emergency Medicine; Internal Medicine Critical Care Medicine; Admitting Provider Internal Medicine; Emergency Provider Family Medicine; Visit Provider Student in an Organized Health Care Education/Training Program
DX: J44.1 Chronic obstructive pulmonary disease with (acute) exacerbation (principal); J96.22 Acute and chronic respiratory failure with hypercapnia; J96.21 Acute and chronic respiratory failure with hypoxia; R64 Cachexia; I48.20 Chronic atrial fibrillation, unspecified; I25.10 Atherosclerotic heart disease of native coronary artery without angina pectoris; I10 Essential (primary) hypertension; I73.9 Peripheral vascular disease, unspecified; F41.9 Anxiety disorder, unspecified; F32.A Depression, unspecified; F17.210 Nicotine dependence, cigarettes, uncomplicated; F12.10 Cannabis abuse, uncomplicated; Z68.1 Body mass index [BMI] 19.9 or less, adult; Z99.81 Dependence on supplemental oxygen; Z79.01 Long term (current) use of anticoagulants; Z91.199 Patient's noncompliance with other medical treatment and regimen due to unspecified reason
CPT/HCPCS: 36415; 36600; 70450; 71046; 80048; 80053; 82103; 82104; 82375; 82805; 83050; 85018; 85025; 85027; 87040; 93005; 94002; 94003; 94640; 94667; 96374; 96375; 97161; 99291; A9270; J2919; J7030

== ENCOUNTER 2025-02-16 19:47 | Observation (INO) | payer OTHER, SELFPAY ==
[2025-02-16] VITALS (7 sets, daily range): BP systolic 109–138; BP diastolic 69–75; PULSE 100–120; RESP 16–30; TEMP 36.3–36.9; O2SAT 95–100; BMI 15.3
--- NOTE | ~2025-02-16 | XR_ITS ---
Examination: XR chest 1V portable Clinical History: dyspnea Comparison: 10/14/2024 Technique: Portable AP Findings: Heart size normal. Lungs clear. Mild hyperinflation. No acute bony abnormality. Coarse bilateral breast calcifications. IMPRESSION: 1. No acute cardiopulmonary findings given portable technique. Reviewed, dictated and finalized at location R. SIGNAL DESIGNER
--- NOTE | 2025-02-16 20:08 | ECG_ITS ---
Test Date: 2025-02-16 20:28:43 Measurements Intervals Ford Rate: 123 P: 79 IN: 125 QRS: 90 QRSD: 89 T: 37 QT: 277 QTc: 397 Interpretive Statements SINUS TACHYCARDIA NONSPECIFIC ST-T WAVE ABNORMALITY- INFERIOR LEADS BASELINE ARTIFACT- V3, V6 ABNORMAL ECG Compared to ECG 10/14/2024 12:02:49 HEART RATE HAS INCREASED Electronically Signed On 02-17-2025 05:51:47 PACKAGE CHECKER by Greg Vargas D.O.
--- OUTSIDE RECORDS SUMMARY | 2025-02-16 20:14 | XMS_ITS | Data Portability ---
Author Organization [place] - [facility], Main Office Address [address] [place] [address] Assessment Encounter Date Assessment Date Assessment LastModified [...] Organization Details Last Modified Time Details Appointments None recorded. Lab alpha-1-ant itrypsin (aat) phenotype, serum [email or web address] [place] [address] (Lab), [address] [place], [address], 10:39:55 BNP (B-type natriuretic peptide), serum or plasma 2024 025 [facility] (Lab), [address] [place], [address], 17:55:33 ige, total, serum [address] (Lab), [address] [place], [address], 5 10:39:55 tb (M tuberculosi s), ifn-gamma samantha, blood [address] (Lab), [address] [place], [address], 5 10:39:55 igg subclasses 1+2+3+4, serum [address] (Lab), [address] [place], [address], 5 10:39:55 respiratory allergen panel, [facility] A, serum [address] (Lab), [address] [place], [address], 5 10:39:56 respiratory allergen panel - [facility] b [address] (Lab), [address] [place], [address], 5 10:39:56 eosinophils , quant, blood [address] (Lab), [address] [place], [address], 5 10:39:56 Referral None recorded. Procedures None recorded. Surgeries None recorded. Imaging CT, chest, w/o contrast 2024 025 [facility] ([facility] Sched[facility]), [address] [place], [address], 5 12:08:11 Medication Orders Breztri Aerosphere 160 mcg-9mcg-4. 8mcg/actuat ion HFA aerosol inhaler 2024 025 [facility] #[id number], [address], [place], [place], [id number], 15:45:04 Breztri Aerosphere 160 mcg-9mcg-4. 8mcg/actuat ion HFA aerosol inhaler 2024 025 [facility] #[id number], [address], [place], [place], [id number], 12:11:49 albuterol sulfate HFA 90 mcg/actuati on aerosol inhaler 2024 025 [facility] #[id number], [address], [place], [place], [id number], 12:11:50 Patient TargetsNo targets recorded. Patient Instructions Encounter Date Encounter Id Patient Instructions Last Modified By Organization Details Last Modified Time 06/03/2024 [id number] 6 minute walk test* АННА Not available 06/11/2024 10:11:26 complete PFT w/ post bronchodilator spirometry* [email or web address] Not available 07/09/2024 17:01:40 Reason for Referral None Reported. Results Created Date Observation Date Name Description Value Unit Range Abnormal Flag Note LastModifiedBy Organization Detail LastModifiedTime 06/26/1906/25/2024 CT, chest , w/o contr ast No observ ation record ed. [email or web address] [facility] [address] [place], [address], 06/27/2024 15:30:35 07/18/1907/16/2024 six minut e walk test* No observ ation record ed. [facility] ([facility] Sched[facility]) [address] [place], [address], 07/18/2024 16:32:53 04/07/16/2024 pre/p ost bron hodil ator randal metry * No observ ation record ed. Not Available 2024 16:32:54 07/31/19 25 07/25/2024 6 minut e walk test* No observ ation record ed. BARCODE Not Available 2024 09:46:30 07/31/19 25 07/23/2024 XR, chest , 1 view No observ ation record ed. BARCODE Not Available 2024 09:46:32 07/31/19 25 07/24/2024 XR, chest , 1 view No observ [...] Recorded Time Severe chronic obstructive pulmonary disease 712156320 Active 2024 Conor Palmer MD [address], [address], [place], [address], [employer] 19:47:42 Chronic obstructive pulmonary disease 36890268 Active 2024 Luz Sheth NP [address], [address], [place], [address], [employer] 15:44:26 Acute hypoxemic and hypercapnic respiratory failure 792295385 Active 2024 Luz Sheth NP [address], [address], [place], [address], [employer] 16:16:20 Chronic hypoxemic respiratory failure 613451905 Active 2024 Luz Sheth NP [address] [facility], [address], [place], [address], [facility] [employer] [facility] 5 15:10:34 Notes:Medical History: CVA D [...] Name and Address Organization Details Recorded Time 13784 Product containin g penicilli n (product) medicatio n itching severe Not available 05/18/2022 15427 8001 SNOMED Not Available [facility] 3 16:29:05 Medications Name Sig Start Date Stop Date Status Note LastModified by Organization Details LastModified Time losartan 50 mg tablet TAKE 1 TABLET BY MOUTH EVERY DAY active Not Available Not Available No t Available atorvastati n 80 mg tablet TAKE 1 TABLET BY MOUTH EVERY DAY IN THE EVENING active Not Available Not Available No t Available prednisone 10 mg tablet active Not Available Not Available Not Available ipratropium [...] TAKE 1 TABLET BY MOUTH EVERY DAY DIRECTED active Not Available Not Available No t Available enalapril maleate 20 mg tablet 06/03 completed Not Available Not Available Not Available prednisone 20 mg tablet TAKE 2 TABLETS BY MOUTH DAILY 07/31 completed Not Available Not Available Not Available simvastatin 40 mg tablet 06/03 completed Not Available Not Available Not Available venlafaxine 37.5 mg tablet TAKE 1 TABLET BY MOUTH TWICE DAILY DIRECTED active Not Available Not Available No t [...] completed Not Available Not Available Not Available doxycycline hyclate 100 mg tablet TAKE 1 TABLET BY MOUTH EVERY 12 HOURS active Not Available Not Available No t Available loratadine 10 mg tablet TAKE 1 TABLET BY MOUTH ONCE DAILY 06/03 completed Not Available Not Available Not Available Baby Aspirin 06/03 completed Not Available Not Available Not Available Symbicort 160 mcg-4.5 mcg/actuati on HFA aerosol inhaler INHALE 2 PUFFS BY MOUTH TWICE DAILY 2024 active Not Available Not Available Not Avai lable Eliquis 5 mg tablet TAKE 1 TABLET BY MOUTH TWICE DAILY active Not Available Not Available No t Available Spiriva Respimat 2.5 mcg/actuati on solution for inhalation INHALE 2 PUFFS BY MOUTH EVERY DAY 2024 active Not Available Not Available Not Avai lable Breztri Aerosphere 160 mcg-9mcg-4. 8mcg/actuat ion HFA aerosol inhaler Inhale by inhalatio n route for 30 days. active Not Available Not Available No t Available Vitals Date Recorded Body weight Body mass index (BMI) Body height Body temperature Heart rate Oxygen saturation Inhaled oxygen flow rate Systolic And Diastolic Provider Name and Address Organization Details Last Updated DateTime 5 81410.0 5 g 14.9 kg/m2 172.72 cm 98.2 [degF] 95 /min 90 % 3 L/min 124/70 mm[Hg] IGNACIO [place] [employer] [facility] 5 11:46:28 Date Recorded Body height Body mass index (BMI) Body weight Body temperature Heart rate Oxygen saturation Inhaled oxygen flow rate Systolic And Diastolic Provider Name and Address Organization Details Last Updated DateTime 172.72 cm 15.7 kg/m2 01913.0 1 g 97.6 [degF] 103 /min 88 % 3 L/min 106/64 mm[Hg] Griselda Peralta MA [facility] 15:30:53 Social History Question Answer Notes LastModified by Organizat ion Details LastModified Time Tobacco Smoking Status Former Smoker Griselda Peralta MA null, [facility] 06/03/2024 11:41:19 What Is Your Level Of [...] available 06/03/2024 When Did You Quit Smoking? 1-5yearssinmandy gan Information not available 06/03/2024 Do You Have [...] anxious, or unable to sleep at night)? [id number] Information not available 06/03/2024 Family History Relationship Description Onset Age of this Age Resolved Age Notes LastModified by Organization Details LastModified Time Mother Hypertensive disorder [id number] Not available 05/18/2022 16:27:15 Medical History No medical history recorded. Gynecological HistoryNo gynecological history recorded. Obstetrics History GPAL:G 0 P 0 0 0 0 Immunizations Vaccine Type Date Status Note Provider Nam e and Address Organization Details Recorded Time pneumococcal polysaccharide PPV23 5 completed Luz Sheth NP [address] [facility] [address], [place], [address], [facility] [employer] 08/01/2024 09:17:45 Past Encounters Encounter ID Performer Location Encounter Start Date Encounter Closed Date Diagnosis/Indication Diagnosis SNOMED-CT Code Diagnosis ICD10 Code Diagnosis IMO Codes Diagnosis Note [id number] Luz Sheth NP [facility] Pulmonolo gy [place] [address] [facility] [address] [place] [address] 06/03/2024 11:20:45 06/07/2024 15:00:01 Chronic obstructive pulmonary disease 76914878 J44.9 Review of hx shows COPD-O2 dependence [...] ed x 2 past yearSon [facility] Dyspnea on exertion 6084 5006 R06.09 Lab work todayCAT-3 2Mmrc-4PFT for baselineAw are to use Albuterol inhaler as needed-ok to use when sobPatient is very weak and noted sob with sitting-so n notes confusion at timesfollo w-up once testing is complete-s ooner for any changes in breathing and increase use of inhaler Multiple n odules of lung 550192963 R91.[address] due to hz of nodules-if able to get old records showing a recent CT will consider Dc of order Dependence on supplemental oxygen 4027515700 07 Z99.81 Patient sits at 90% at 3L NC resting-re sp rate of 24 [id number] Luz Sheth NP [facility] Pulmonolo gy [address] [address] 07/31/2024 15:16:31 08/20/2024 07:06:38 Chronic obstructive pulmonary disease 91943181 J44.9 PFT 07/15/24 FEV1 0.29 L (11%), [...] until rx filled Pneumococc al vaccination given 714122075 Z23 [id number] Dependence on supplemental oxygen 1860900894 07 Z99.81 487509 Patient sits at 88-90% at 3L NC resting-re sp rate of 24 at rest Chronic hy poxemic respiratory failure 419276057 J96.11 [id number] Rx for non-invasi ve ventilator through IV [...] to have oxygen saturation s of 88 9 0% while on 3L nasal cannula O2 therapy, indicating persistent hypoxemia despite maximal oxygen supplement ation. This suggests underlying ventilator y failure rather than isolated hypoxemia, supporting the need for nocturnal and potentiall y daytime ventilator y support.Gi darrion the patient s documente d hypercapni a, history of hospitaliz ation for [...] Member ID Cabrera Member ID Guarantor Name 11/27/2024 1 [facility] ON OR AFTER 09/17/20 (MEDICAID REPLACEMENT - HMO) Carly Oliveira [id number] Carly Oliveira 08/01/2024 1 [facility] PRIOR TO 09/17/2020 (MEDICAID REPLACEMENT - HMO) Carly Oliveira [id number] Carly Oliveira Notes Date Note Type Note Provider Name and Address Organization Details Recorded Time 5 text/html COPDReported by PatientHPIFor severity, patient reportsvery limiting. For associated symptoms, patient reportsdyspnea at rest,decrease in exercise capacity,fatigue,coughing up sputum green,cough loose, andweight lossbut reportsno snoring,no excessive daytime sleepiness,no arousals from sleep,no decrease in exercise capacity,no coughing up sputum,no fever,no wheezing,no weight loss, andno depression. For duration, patient reportsattacks are frequent. For onset/timing, patient reportschronicandchronic: suddenly much worse. For context, patient reportscigarette smokingandpneumococcal pneumonia vaccine ___. 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, [address], [place], [address], [facility] 06/03/2024 13:26:33 5 text/html COPDReported by PatientHPIFor severity, patient reportsvery limiting. For associated symptoms, patient reportsdyspnea at rest,decrease in exercise capacity,fatigue,coughing up sputum green,cough non productive, andweight lossbut reportsno snoring,no excessive daytime sleepiness,no arousals from sleep,no decrease in exercise capacity,no coughing up sputum,no fever,no wheezing,no weight loss, andno depression. For duration, patient reportsattacks are frequent. For onset/timing, patient reportschronicandchronic: suddenly much worse. For context, patient reportscigarette smoking,influenza vaccine 2023, andpneumococcal pneumonia vaccine 2024. For modifying factors, patient reportsrelieved with oxygen,relieved with bronchodilator,worse in a supine position, andworse with exertion.+smoker 1ppd for 48 yearshere for follow-up from hospitalization due to acute hypercapnic respiratory failure-she required Bipap, steroids and antibiotics-she notes she is feeling better-she was not sent home with a home vent or bipap only her duoneb and O2. She did not fill her Breztri (though she notes that she had really good benefit with the sample she was given)-after her last visit patient has moved in with her son and this was discussed today. Luz Sheth NP [address], [address], [place], [address], [employer] 08/01/2024 15:10:48 OBGyn Episode No OBEpisode recorded.
--- OUTSIDE RECORDS SUMMARY | 2025-02-16 20:14 | XMS_ITS | Data Portability ---
Author Organization [facility] Phillip Robb Address [address] [place] [address] Care Team Providers Care Meter Technician Name Role Phone JASEN CARDENAS Primary Care Provider Unavailabl e Assessment No assessment recorded. Plan of Treatment Reminders Order Date Submit Date Provider Last Modified By Organization Details Last Modified Time Details Appointments None recorded . Lab None recorded . Referral neurolog ist referral 2024 025 [facility] At [address] , [address], [place], [address], 5 09:48:18 behavior al health referral 2023 024 VIVIANA Perdomo [facility], [address] [place], [address], 4 15:27:46 home health referral 2022 023 vinh [facility] - [address], [address], [place], [address], 4 08:35:45 Procedures None recorded . Surgeries None recorded . Imaging None recorded . Medication Orders Boost Plus 0.06 gram-1.5 kcal/mL oral liquid 2024 025 [facility] [facility], [address] [facility], [place], [address], 5 17:05:23 ipratrop ium 0.5 mg-albut cassandra 3 mg (2.5 mg base)/3 mL nebuliza tion soln 2024 025 [facility] #[id number], [address], [place], [place], [id number], 5 17:02:10 gabapent in 300 mg capsule 2024 025 [facility] #[id number], [address], [place], [place], [id number], 5 17:02:11 Boost Plus 0.06 gram-1.5 kcal/mL oral liquid 2024 025 [facility], [address] [facility], [place], [address], 5 18:10:34 Boost High Protein 0.06 gram-1 kcal/mL oral liquid 2023 025 [facility] #[id number], [address], [id number], 5 16:35:26 loratadi ne 10 mg tablet [address] [facility] #66191, [address], [place], [place], [id number], 5 17:37:46 Symbicor t 160 mcg-4.5 mcg/actu ation HFA aerosol inhaler 2023 024 [facility] #72816, [address], [place], [place], [id number], 4 17:38:02 atorvast atin 80 mg tablet 2023 024 [facility] #88500, [address], [id number], 4 17:38:04 Boost High Protein 0.06 gram-1 kcal/mL oral liquid [address] [facility] #40336, [address], [place], [place], [id number], 5 16:30:28 albutero l sulfate HFA 90 mcg/actu ation aerosol inhaler 2023 024 [facility] #12807, [address], [place], [place], [id number], 4 17:38:03 ipratrop ium 0.5 mg-albut cassandra 3 mg (2.5 mg base)/3 mL nebuliza tion soln 2023 024 [facility] #94817, [address], [place], [place], [id number], 4 17:38:03 Eliquis 5 mg tablet 2023 024 [facility] #15939, [address], [place], [place], [id number], 4 17:38:01 losartan 50 mg tablet 2023 024 [facility] #50117, [address], [place], [place], [id number], 4 17:38:03 metoprol ol succinat e ER 50 mg tablet,e xtended release 24 hr 2023 024 [facility] #79558, [address], [place], [place], [id number], 4 17:38:02 venlafax ine 37.5 mg tablet 2023 024 [facility] #55757, [address], [place], [place], [id number], 4 17:38:02 gabapent in 300 mg capsule 2023 024 [facility] #59281, [address], [place], [place], [id number], 4 17:38:00 Eliquis 5 mg tablet 2022 023 [id number] [facility] #22273, [address], [place], [place], [id number], 3 16:41:27 Boost High Protein 0.06 gram-1 kcal/mL oral liquid [address] [facility] #54577, [address], [place], [place], [id number], 5 16:30:28 Patient TargetsNo targets recorded. Patient Instructions Encounter Date Encounter Id Patient Instructions Last Modified By Organization Details Last Modified Time 08/24/2023 [id number] Peripheral Arterial Disease (PAD): Care Instructions [email or web address] Not available 08/24/2023 17:37:49 learning about high blood sugar [email or web address] Not available 08/24/2023 17:37:49 learning about high blood pressure [email or web address] Not available 08/24/2023 17:37:49 neuropathic pain : care instructions [email or web address] Not available 08/24/2023 17:37:49 02/12/2024 [id number] learning about mood disorders [email or web address] Not available 02/13/2024 10:29:40 eating healthy foods: care instructions Not available 02/12/2024 22:40:58 06/11/2024 [id number] learning about high blood pressure [email or web address] Not available 06/11/2024 18:06:12 Reason for Referral [...] low Not Available Not Available 07/26/2024 11:45:13 05/05/07/22/2024 CBC W Auto Diffe renti al panel [...] Not Available Not Available 07/27/19 11:45:13 07/23/19 25 07/22/2024 CBC W Auto [...] Not Available 07/26/2024 11:45:14 07/23/19 25 07/22/2024 SARS- CoV-2 (COVI D-19) RNA [Pres ence] [...] 07/26/2024 11:45:14 07/24/19 25 07/22/2024 Compr ehens arieal metab olic 1999 panel - Serum or Plasm a glucose [mass/volume ] in serum or plasma 224 mg/dL low: 70mg/d Lhigh: 99mg/d L high Not Available Not Available 07/26/2024 11:45:14 07/24/19 25 07/22/2024 [facility] [employer] [facility] 1999 panel - Serum or Plasm a urea nitrogen [mass or moles/volume ] in serum or plasma 21 mg/dL low: 8mg/dL high: 19mg/d L high Not Available Not Available 07/26/2024 11:45:14 07/24/19 25 07/22/2024 [facility] [employer] [facility] 1999 panel - Serum or Plasm a creatinine [mass/volume ] in serum or plasma 0.62 mg/dL low: 0.66mg /dLhig h: 1.25mg /dL low Not Available Not Available 07/26/2024 11:45:14 07/24/19 25 07/22/2024 [facility] [employer] [facility] 1999 panel - Serum or Plasm a glomerular filtration rate [volume rate/area] in serum, plasma or blood by based on 1.73 sq M >60 normal Not Available Not Available 11:45:14 07/24/19 25 07/22/2024 [facility] [employer] [facility] 1999 panel - Serum or Plasm a alkaline phosphatase [enzymatic activity/vol ume] in serum or plasma 69 U/L low: 38U/Lh igh: 126U/L normal Not Available Not Available 07/26/2024 11:45:14 07/24/19 25 07/22/2024 [facility] [employer] [facility] 1999 panel - Serum or Plasm a alanine aminotransfe rase [enzymatic activity/vol ume] in serum or plasma 27 U/L low: 0U/Lhi gh: 35U/L normal Not Available Not Available 07/26/2024 11:45:14 07/24/19 25 07/22/2024 [facility] [employer] 1999 panel - Serum or Plasm a aspartate aminotransfe rase [enzymatic activity/vol ume] in serum or plasma 36 U/L low: 15U/Lh igh: 37U/L normal Not Available Not Available 07/26/2024 11:45:14 07/24/19 25 07/22/2024 [facility] 2000 panel - Serum or Plasm a bilirubin.to mikal [mass/volume ] in serum or plasma 0.8 mg/dL low: 0.2mg/ dLhigh : 1.3mg/ dL normal Not Available Not Available 07/26/2024 11:45:14 07/24/19 25 07/22/2024 [facility] 1999 panel - Serum or Plasm a calcium [mass/volume ] in serum or plasma 9.9 mg/dL low: 8.4mg/ dLhigh : 10.2mg /dL normal Not Available Not Available 07/26/2024 11:45:14 07/24/19 25 07/22/2024 [facility] 1999 panel - Serum or Plasm a protein [mass/volume ] in serum or plasma 7.1 g/dL low: 6.3g/d Lhigh: 8.2g/d L normal Not Available Not Available 07/26/2024 11:45:14 07/24/19 25 07/22/2024 [facility] 1999 panel - Serum or Plasm a albumin [mass/volume ] in serum or plasma 4.6 g/dL low: 3g/dLh igh: 4.4g/d L high Not Available Not Available 07/26/2024 11:45:14 07/24/19 25 07/22/2024 [place] [address] panel - Serum or Plasm a globulin [mass/volume ] in serum 2.5 g/dL low: 2.6g/d Lhigh: 4.2g/d L low Not Available Not Available 07/26/2024 11:45:14 07/24/19 25 07/22/2024 [place] [address] panel - Serum or Plasm a albumin/glob ulin [mass ratio] in serum or plasma 1.8 ratio low: 1ratio high: 2ratio normal Not Available Not Available 07/26/2024 11:45:14 07/24/19 25 07/23/2024 [place] [address] panel - Serum or Plasm a carbon dioxide, total [moles/volum e] in serum or plasma 46 mmol/ L low: 22mmol /Lhigh : 30mmol /L high Not Available Not Available 07/26/2024 11:45:14 07/24/19 25 07/23/2024 Compr ehens ariela metab olic 2000 panel - Serum or Plasm a anion [...] normal Not Available Not Available 07/27/19 11:45:14 07/24/19 25 07/23/2024 CBC W Auto Diffe renti al panel - Blood hypochromia [presence] in blood by light microscopy Ayesha garcia data interp retati on normal Not Available Not Available 11:45:14 07/24/19 25 07/23/2024 Compr ehens ariela metab olic 1999 panel - Serum or Plasm a sodium [moles/volum e] in blood 136 mmol/ L low: 137mmo l/Lhig h: 145mmo l/L low Not Available Not Available 07/26/2024 11:45:14 07/24/19 25 07/23/2024 Compr ehens ariela metab olic 2000 panel - Serum or Plasm a potassium [...] Available 07/26/2024 11:45:14 07/24/19 25 07/23/2024 Compr [employer] ariela metab olic 1999 panel - Serum or Plasm a anion gap in serum or plasma by calculation 10.5 mmol/ L low: 14mmol /Lhigh : 22mmol /L low Not Available Not Available 07/26/2024 11:45:14 07/24/19 25 07/23/2024 Compr [employer] ariela [employer] olic 1999 panel - Serum or Plasm a glucose [mass/volume ] in serum or plasma 123 mg/dL low: 70mg/d Lhigh: 99mg/d L high Not Available Not Available 07/26/2024 11:45:14 07/24/19 25 07/23/2024 [facility]pr [employer] ariela metab olic 1999 panel - Serum or Plasm a urea nitrogen [mass or moles/volume ] in serum or plasma 24 mg/dL low: 8mg/dL high: 19mg/d L high Not Available Not Available 07/26/2024 11:45:14 07/24/19 25 07/23/2024 Compr [employer] ariela [employer] olic 1999 panel - Serum or Plasm [...] Available Not Available 11:45:14 07/24/19 25 07/23/2024 [facility] [employer] [facility] 1999 panel - Serum or Plasm a alkaline phosphatase [enzymatic activity/vol ume] in serum or plasma 54 U/L low: 38U/Lh igh: 126U/L normal Not Available Not Available 07/26/2024 11:45:14 07/24/19 25 07/23/2024 [facility] 1999 panel - Serum or Plasm a alanine aminotransfe rase [enzymatic activity/vol ume] in serum or plasma 24 U/L low: 0U/Lhi gh: 35U/L normal Not Available Not Available 07/26/2024 11:45:14 07/24/19 25 07/23/2024 [facility] 1999 panel - Serum or Plasm a aspartate aminotransfe rase [enzymatic activity/vol ume] in serum or plasma 32 U/L low: 15U/Lh igh: 37U/L normal Not Available Not Available 07/26/2024 11:45:14 07/24/19 25 07/23/2024 [facility] [employer] [facility] 1999 panel - Serum or Plasm a bilirubin.to mikal [mass/volume ] in serum or plasma 0.9 mg/dL low: 0.2mg/ dLhigh : 1.3mg/ dL normal Not Available Not Available 07/26/2024 11:45:14 07/24/19 25 07/23/2024 [facility] [employer] [facility] 1999 panel - Serum or Plasm a calcium [mass/volume ] in serum or plasma 9.7 mg/dL low: 8.4mg/ dLhigh : 10.2mg /dL normal Not Available Not Available 07/26/2024 11:45:14 07/24/19 25 07/23/2024 [facility] [employer] [facility] 1999 panel - Serum or Plasm a protein [mass/volume ] in serum or plasma 6.6 g/dL low: 6.3g/d Lhigh: 8.2g/d L normal Not Available Not Available 07/26/2024 11:45:14 07/24/19 25 07/23/2024 [facility]riela [employer] [facility] 1999 panel - Serum or Plasm a albumin [mass/volume ] in serum or plasma 4.2 g/dL low: 3g/dLh igh: 4.4g/d L normal Not Available Not Available 07/26/2024 11:45:14 07/24/19 25 07/23/2024 [facility] 1999 panel - Serum or Plasm a globulin [mass/volume ] in serum 2.4 g/dL low: 2.6g/d Lhigh: 4.2g/d L low Not Available Not Available 07/26/2024 11:45:14 07/24/19 25 07/23/2024 [facility] metab [facility] 1999 panel - Serum or Plasm a [...] Not Available 07/26/2024 11:45:15 07/25/19 25 07/24/2024 [facility] ariela [employer] [facility] 1999 panel - Serum or Plasm a sodium [moles/volum e] in blood 142 mmol/ L low: 137mmo l/Lhig h: 145mmo l/L normal Not Available Not Available 07/26/2024 11:45:14 07/25/19 25 07/24/2024 [facility] metab [facility] 1999 panel - Serum or Plasm a potassium [moles/volum e] in serum or plasma 3.9 mmol/ L low: 3.5mmo l/Lhig h: 5.1mmo l/L normal Not Available Not Available 07/26/2024 11:45:14 07/25/19 25 07/24/2024 [facility]pr [employer] ariela metab olic 1999 panel - Serum or Plasm a chloride [moles/volum e] in serum or plasma 90 mmol/ L low: 98mmol /Lhigh : 107mmo l/L low Not Available Not Available 07/26/2024 11:45:14 07/25/19 25 07/24/2024 Compr ehens ariela metab olic 1999 panel - Serum or Plasm a carbon dioxide, total [moles/volum e] in serum or plasma 43 mmol/ L low: 22mmol /Lhigh : 30mmol /L high Not Available Not Available 07/26/2024 11:45:14 07/25/19 25 07/24/2024 Compr ehens ariela metab olic 1999 panel - Serum or Plasm a anion gap in serum or plasma by calculation 12.9 mmol/ L low: 14mmol /Lhigh : 22mmol /L low Not Available Not Available 07/26/2024 11:45:14 07/25/19 25 07/24/2024 [facility] [employer] ariela [employer] olic 1999 panel - Serum or Plasm a glucose [mass/volume ] in serum or plasma 114 mg/dL low: 70mg/d Lhigh: 99mg/d L high Not Available Not Available 07/26/2024 11:45:14 07/25/19 25 07/24/2024 Compr [employer] ariela metab olic 1999 panel - Serum or Plasm a urea nitrogen [mass or moles/volume ] in serum or plasma 24 mg/dL low: 8mg/dL high: 19mg/d L high Not Available Not Available 07/26/2024 11:45:14 07/25/19 25 07/24/2024 Compr [employer] ariela [employer] olic 1999 panel - Serum or Plasm a creatinine [mass/volume ] in serum or plasma 0.79 mg/dL low: 0.66mg /dLhig h: 1.25mg /dL normal Not Available Not Available 07/26/2024 11:45:14 07/25/19 25 07/24/2024 Compr [employer] ariela [employer] olic 2000 panel - Serum or Plasm a glomerular filtration rate [volume rate/area] in serum, plasma or blood by based on 1.73 sq M >60 normal Not Available Not Available 11:45:14 07/25/19 25 07/24/2024 [facility] [employer] ariela [employer] ol 1999 panel - Serum or Plasm a alkaline phosphatase [enzymatic activity/vol ume] in serum or plasma 49 U/L low: 38U/Lh igh: 126U/L normal Not Available Not Available 07/26/2024 11:45:14 07/25/19 25 07/24/2024 [facility]pr [employer] ariela [employer] ol 1999 panel - Serum or Plasm a alanine aminotransfe rase [enzymatic activity/vol ume] in serum or plasma 23 U/L low: 0U/Lhi gh: 35U/L normal Not Available Not Available 07/26/2024 11:45:14 07/25/19 25 07/24/2024 [facility] [employer] ariela [employer] olic 1999 panel - Serum or Plasm a aspartate aminotransfe rase [enzymatic activity/vol ume] in serum or plasma 30 U/L low: 15U/Lh igh: 37U/L normal Not Available Not Available 07/26/2024 11:45:14 07/25/19 25 07/24/2024 [facility] [employer] ariela [employer] [facility] 1999 panel - Serum or Plasm a bilirubin.to mikal [mass/volume ] in serum or plasma 1.1 mg/dL low: 0.2mg/ dLhigh : 1.3mg/ dL normal Not Available Not Available 07/26/2024 11:45:14 07/25/19 25 07/24/2024 Compr [employer] ariela [employer] [place] 1999 panel - Serum or Plasm a calcium [mass/volume ] in serum or plasma 9.6 mg/dL low: 8.4mg/ dLhigh : 10.2mg /dL normal Not Available Not Available 07/26/2024 11:45:14 07/25/19 25 07/24/2024 [facility] ariela [employer] olic 1999 panel - Serum or Plasm a protein [mass/volume ] in serum or plasma 6.5 g/dL low: 6.3g/d Lhigh: 8.2g/d L normal Not Available Not Available 07/26/2024 11:45:14 07/25/19 25 07/24/2024 [facility] ariela metab [facility] 2000 panel - Serum or Plasm a albumin [mass/volume ] in serum or plasma 4.3 g/dL low: 3g/dLh igh: 4.4g/d L normal Not Available Not Available 07/26/2024 11:45:14 07/25/19 25 07/24/2024 Compr ens ariela metab [facility] 1999 panel - Serum or Plasm a globulin [mass/volume ] in serum 2.2 g/dL low: 2.6g/d Lhigh: 4.2g/d L low Not Available Not Available 07/26/2024 11:45:14 07/25/19 25 07/24/2024 Compr ens ariela metab [facility] 1999 panel - Serum or Plasm a [...] 07/26/19 25 07/25/2024 CBC W Auto Diffe jati al panel - Blood hematocrit [volume fraction] of blood by automated count 38.9 % low: 35.7%h igh: 45.7% normal Not Available Not Available 07/26/2024 11:45:14 07/26/19 25 07/25/2024 CBC W Auto Diffe heydi naranjo panel - Blood MCV [entitic mean volume] in red blood cells by automated count 100 fL low: 82fLhi gh: 99fL high Not Available Not Available 07/26/2024 11:45:14 07/26/19 25 07/25/2024 CBC W Auto Diffe heydi naranjo panel - Blood MCH [entitic mass] by automated count 29.6 pg low: 27pghi gh: 33pg normal Not Available Not Available 07/26/2024 11:45:14 07/26/19 25 07/25/2024 CBC W Auto Diffe heydi naranjo panel - Blood MCHC [entitic mass/volume] in red blood cells by automated count 29.6 g/dL low: 31g/dL high: 36g/dL low Not Available Not Available 07/26/2024 11:45:14 07/26/19 25 07/25/2024 CBC W Auto Diffe heydi al panel [...] [presence] in blood by light microscopy [facility] data interp retati on normal Not Available Not Available 11:45:14 07/26/19 25 07/25/2024 CBC W Auto Diffe renti al panel - Blood hypochromia [presence] in blood by light microscopy Labora tory data interp retati on normal Not Available Not Available 11:45:14 07/26/19 25 07/25/2024 CBC W Auto Diffe renti al panel - Blood macrocytes [presence] in blood by light microscopy [facility] data interp retati on normal Not Available Not Available 11:45:14 07/26/19 25 07/25/2024 Compr ehens ariela metab olic 1999 panel - Serum or Plasm a sodium [moles/volum e] in blood 143 mmol/ L low: 137mmo l/Lhig h: 145mmo l/L normal Not Available Not Available 07/26/2024 11:45:15 07/26/19 25 07/25/2024 Compr ehens ariela metab olic 2000 panel - Serum or Plasm a potassium [moles/volum e] in serum or plasma 3.9 mmol/ L low: 3.5mmo l/Lhig h: 5.1mmo l/L normal Not Available Not Available 07/26/2024 11:45:15 07/26/19 25 07/25/2024 Compr ehens ariela metab ol 1999 panel - Serum or Plasm a chloride [moles/volum e] in serum or plasma 91 mmol/ L low: 98mmol /Lhigh : 107mmo l/L low Not Available Not Available 07/26/2024 11:45:15 07/26/19 25 07/25/2024 [facility] [employer] [facility] 1999 panel - Serum or Plasm a carbon dioxide, total [moles/volum e] in serum or plasma 41 mmol/ L low: 22mmol /Lhigh : 30mmol /L high Not Available Not Available 07/26/2024 11:45:15 07/26/19 25 07/25/2024 [facility] ariela [employer] [facility] 1999 panel - Serum or Plasm a anion gap in serum or plasma by calculation 14.9 mmol/ L low: 14mmol /Lhigh : 22mmol /L normal Not Available Not Available 07/26/2024 11:45:15 07/26/19 25 07/25/2024 [facility] [employer] [facility] 1999 panel - Serum or Plasm a glucose [mass/volume ] in serum or plasma 144 mg/dL low: 70mg/d Lhigh: 99mg/d L high Not Available Not Available 07/26/2024 11:45:15 07/26/19 25 07/25/2024 [facility] 1999 panel - Serum or Plasm a urea nitrogen [mass or moles/volume ] in serum or plasma 23 mg/dL low: 8mg/dL high: 19mg/d L high Not Available Not Available 07/26/2024 11:45:15 07/26/19 25 07/25/2024 [facility] [employer] [facility] 1999 panel - Serum or Plasm a creatinine [mass/volume ] in serum or plasma 0.63 mg/dL low: 0.66mg /dLhig h: 1.25mg /dL low Not Available Not Available 07/26/2024 11:45:15 07/26/19 25 07/25/2024 [facility] [place] [address] panel - Serum or Plasm a glomerular filtration rate [volume rate/area] in serum, plasma or blood by based on 1.73 sq M >60 normal Not Available Not Available 11:45:15 07/26/19 25 07/25/2024 [facility] ariela [employer] [facility] 1999 panel - Serum or Plasm a alkaline phosphatase [enzymatic activity/vol ume] in serum or plasma 43 U/L low: 38U/Lh igh: 126U/L normal Not Available Not Available 07/26/2024 11:45:15 07/26/19 25 07/25/2024 [facility] [employer] ariela [employer] ol 1999 panel - Serum or Plasm a alanine aminotransfe rase [enzymatic activity/vol ume] in serum or plasma 27 U/L low: 0U/Lhi gh: 35U/L normal Not Available Not Available 07/26/2024 11:45:15 07/26/19 25 07/25/2024 [facility] ariela [employer] ol 1999 panel - Serum or Plasm a aspartate aminotransfe rase [enzymatic activity/vol ume] in serum or plasma 29 U/L low: 15U/Lh igh: 37U/L normal Not Available Not Available 07/26/2024 11:45:15 07/26/19 25 07/25/2024 [facility] [employer] [facility] 1999 panel - Serum or Plasm a bilirubin.to mikal [mass/volume ] in serum or plasma 0.8 mg/dL low: 0.2mg/ dLhigh : 1.3mg/ dL normal Not Available Not Available 07/26/2024 11:45:15 07/26/19 25 07/25/2024 [facility] ariela [employer] [facility] 1999 panel - Serum or Plasm a calcium [mass/volume ] in serum or plasma 9.3 mg/dL low: 8.4mg/ dLhigh : 10.2mg /dL normal Not Available Not Available 07/26/2024 11:45:15 07/26/19 25 07/25/2024 [facility] ariela [employer] [facility] 1999 panel - Serum or Plasm a protein [mass/volume ] in serum or plasma 6.1 g/dL low: 6.3g/d Lhigh: 8.2g/d L low Not Available Not Available 07/26/2024 11:45:15 07/26/19 25 07/25/2024 [facility] [employer] ariela [employer] [facility] 1999 panel - Serum or Plasm a [...] 07/26/19 25 07/25/2024 Compr ehens ariela metab [facility] 1999 panel - Serum or Plasm a [...] Not Available 07/26/2024 11:45:15 07/27/19 25 07/26/2024 [facility] ariela [employer] [facility] 1999 panel - Serum or Plasm a carbon dioxide, total [moles/volum e] in serum or plasma 38 mmol/ L low: 22mmol /Lhigh : 30mmol /L high Not Available Not Available 07/26/2024 11:45:15 07/27/19 25 07/26/2024 [facility] ariela [employer] [facility] 1999 panel - Serum or Plasm a anion gap in serum or plasma by calculation 14.9 mmol/ L low: 14mmol /Lhigh : 22mmol /L normal Not Available Not Available 07/26/2024 11:45:15 07/27/19 25 07/26/2024 [facility] [employer] [facility] 1999 panel - Serum or Plasm a glucose [mass/volume ] in serum or plasma 112 mg/dL low: 70mg/d Lhigh: 99mg/d L high Not Available Not Available 07/26/2024 11:45:15 07/27/19 25 07/26/2024 [facility] ariela [employer] [facility] 1999 panel - Serum or Plasm a urea nitrogen [mass or moles/volume ] in serum or plasma 22 mg/dL low: 8mg/dL high: 19mg/d L high Not Available Not Available 07/26/2024 11:45:15 07/27/19 25 07/26/2024 [facility] [employer] [facility] 1999 panel - Serum or Plasm a creatinine [mass/volume ] in serum or plasma 0.59 mg/dL low: 0.66mg /dLhig h: 1.25mg /dL low Not Available Not Available 07/26/2024 11:45:15 07/27/19 25 07/26/2024 [facility] ariela [employer] [facility] 1999 panel - Serum or Plasm a glomerular filtration rate [volume rate/area] in serum, plasma or blood by based on 1.73 sq M >60 normal Not Available Not Available 11:45:15 07/27/19 25 07/26/2024 [facility]riela [facility] 1999 panel - Serum or Plasm a alkaline phosphatase [enzymatic activity/vol ume] in serum or plasma 50 U/L low: 38U/Lh igh: 126U/L normal Not Available Not Available 07/26/2024 11:45:15 07/27/19 25 07/26/2024 [facility] ariela [facility] 1999 panel - Serum or Plasm a alanine aminotransfe rase [enzymatic activity/vol ume] in serum or plasma 25 U/L low: 0U/Lhi gh: 35U/L normal Not Available Not Available 07/26/2024 11:45:15 07/27/19 25 07/26/2024 [facility] ariela [facility] 1999 panel - Serum or Plasm a aspartate aminotransfe rase [enzymatic activity/vol ume] in serum or plasma 31 U/L low: 15U/Lh igh: 37U/L normal Not Available Not Available 07/26/2024 11:45:15 07/27/19 25 07/26/2024 [facility] 1999 panel - Serum or Plasm a bilirubin.to mikal [mass/volume ] in serum or plasma 0.7 mg/dL low: 0.2mg/ dLhigh : 1.3mg/ dL normal Not Available Not Available 07/26/2024 11:45:15 07/27/19 25 07/26/2024 [facility] [place] [address] panel - Serum or Plasm a calcium [mass/volume ] in serum or plasma 9.1 mg/dL low: 8.4mg/ dLhigh : 10.2mg /dL normal Not Available Not Available 07/26/2024 11:45:15 07/27/19 25 07/26/2024 [facility] 1999 panel - Serum or Plasm a protein [mass/volume ] in serum or plasma 6.4 g/dL low: 6.3g/d Lhigh: 8.2g/d L normal Not Available Not Available 07/26/2024 11:45:15 07/27/19 25 07/26/2024 [facility] [place] [address] panel - Serum or Plasm a albumin [mass/volume ] in serum or plasma 4.1 g/dL low: 3g/dLh igh: 4.4g/d L normal Not Available Not Available 07/26/2024 11:45:15 07/27/19 25 07/26/2024 Compr ehens airela metab olic 1999 panel - Serum or [...] normal Not Available Not Available 07/27/19 11:45:14 05/25/19 25 XR, chest No observ ation record ed. [address], [place], [address], 05/25/2024 23:11:32 05/25/19 25 elect rocar diogr am No observ ation record ed. [email or web address] Not Available 2024 23:11:32 07/23/19 25 07/22/2024 XR, chest No observ ation record ed. [address] [place], [address], 07/29/2024 12:40:51 07/24/19 25 07/23/2024 XR, chest No observ ation record ed. [address] [place], [address], 07/29/2024 15:58:33 07/25/19 25 07/24/2024 XR, chest No observ ation record ed. [email or web address] [facility] [address] [place], [address], 07/24/2024 13:20:06 07/26/19 25 07/25/2024 XR, chest No observ ation record ed. [address] [place], [address], 08/05/2024 10:45:33 07/27/19 25 07/26/2024 XR, chest No observ ation record ed. [address] [place], [address], 08/05/2024 10:45:46 Result Notes None recorded. Problems Name Problem SNOMED Code Status Onset Date Resolution Date Notes Provider Name and Address Organization Details Recorded Time Backache 569801341 Active Not Available [facility] 2 07:20:31 Anxiety disorder 948528147 Active Not Available [facility] 2 07:20:31 Pressure ulcer of lower back Active Not Available [facility] 2 07:20:31 Acute myocardi al infarcti on of inferola teral wall 60947769 Completed 12/29/2016 Yang Rosales MD Attn: Accounting ,[address] [place], [address] , [facility] 7 14:50:05 Decrease in appetite 03595933 Active Not Available [facility] 2 07:20:31 Pressure injury of buttock 267303685 Active Not Available [facility] 2 07:20:31 Pressure ulcer stage 2 Active Not Available [facility] 2 07:20:31 [facility]entia l hyperten thireno 52700381 Active Not Available [facility] 2 07:20:31 Pain in left lower limb 784922138 Active Not Available [facility] 2 07:20:31 Pain in right lower limb 794941836 Active Not Available [facility] 2 07:20:31 Acute bronchit is 12047143 Active Not Available [facility] 2 07:20:31 Cough 10494398 Active Not Available [facility] 2 07:20:32 Chronic obstruct ariela pulmonar y disease 01684942 Active 2016 Not Available [facility] 2 07:20:31 History of myocardi al infarcti on 403821027 Active 2016 2015 Not Available [facility] 2 07:20:31 Bronchit is 14582773 Active 2017 Not Available [facility] 2 07:20:31 Tobacco user 228890540 Completed 201708/24/2023 Yang Rosales MD Attn: [place], [address] , [facility] 4 17:28:25 Depressi ve disorder 41044914 Active 2017 Not Available [facility] 2 07:20:31 Peripher al arterial occlusiv e disease 600418271 Active 2017 Not Available [facility] 2 07:20:31 Neuropat hy 483557458 Active 2017 Not Available [facility] 2 07:20:31 Spasm 96024433 Active 2017 both legs Not Available [facility] 2 07:20:31 Steatoti c liver disease 354106298 Active 2017 Not Available [facility] 2 07:20:31 Generali zed aches and pains 17580783 Active 2017 Not Available [facility] 2 07:20:31 Hypergly cemia 31229752 Active 2017 Not Available [facility] 2 07:20:31 Active immuniza tion Active 2017 Not Available [facility] 2 07:20:31 Coronary atherosc lerosis 037806781 Active 2018 Not Available [facility] 2 07:20:31 Chronic pain syndrome 483463491 Active 2019 Not Available [facility] 2 07:20:31 Contact dermatit is caused by urushiol from [facility] han 959533864 Active 2020 Not Available [facility] 2 07:20:31 Moderate protein- calorie malnutri tion (weight for age 60-74 percent of standard ) 898557341 Active 2021 Yang Rosales MD Attn: Accounting ,[address] [place], [address] , [place] - [facility] 2 16:15:53 Cellulit is 004947152 Active 2021 periumbi lical Yang Rosales MD Attn: Accounting ,[address] [place], [address] , [place] - [facility] 2 16:26:17 Abdomina l pain 18625721 Active 2021 Yang Rosales MD Attn: Accounting ,[address] [place], [address] , [place] - [facility] 2 13:34:10 Insect bite of hand 825072724 Active 2022 Yang Rosales MD Attn: Accounting ,[address] [place], [address] , [place] [facility] 3 16:03:36 Allergic rhinitis 55295612 Active 2022 Yang Rosales MD Attn: Accounting ,[address] [place], [address] , [place] - [facility] 3 16:06:20 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 08027317 Active 2022 Yang Rosales MD Attn: Accounting ,[address] [facility], [place], [address] , [place] - [facility] 3 15:55:13 History of acute respirat ory failure 57382661725 757978 Active 2022 Yang Rosales MD Attn: Accounting ,[address] [facility], [place], [address] , [place] - [facility] 3 16:43:17 Dependen ce on continuo us suppleme ntal oxygen 28123188687 103 Active 2023 Yang Rosales MD Attn: Accounting ,[address] [facility], [place], [address] , [place] - [facility] 4 20:49:35 Upper respirat ory infectio n 57407929 Active 2023 Yang Rosales MD Attn: Accounting ,[address] [facility], [place], [address] , [place] - [facility] 4 06:41:09 Memory impairme nt 473526992 Active 2024 Yang Rosales MD Attn: Accounting ,[address] [facility], [place], [address] , [place] - [facility] 5 17:52:47 Notes:Some problems listed i n Document: #[id number] could not be added to this patient's chart. Please review this document and add these problems to the patient's chart manually as needed. Problem Notes None recorded. Procedures Surgical History Date Name Laterality Status Provider Name and Address Organization Details Recorded Time Other completed Angel bennett MA [place] - [place] 09/03/2014 16:27:47 Other completed Angel bennett MA [place] - [facility] 09/03/2014 16:27:47 Imaging Results None recorded. Procedure Notes None recorded. Medical Equipment None Reported. Allergies Allergen ID Allergen Name Allergen Category Reaction Reaction Severity Criticality Documentation Date Start Date Code Code System Note Provider Name and Address Organization Details Recorded Time Adhesive agent (substanc e) environme nt,medica tion rash Not available high 01/07/20252021 93372 0007 SNOMED EKG leads Not Available viviana - External Data Service - prod 5 12:21:27 18301 Product containin g penicilli n (product) medicatio n itching Not available Not available 09/03/2014 37474 8001 SNOMED Angel Machado r, IGNACIO null, [place] - [facility] 5 16:27:47 Medications Name Sig Start Date [...] Not Available atorvasta tin 80 mg tablet active Not Available Not Available Not Available venlafaxi ne ER 37.5 mg capsule,e [...] tablet TAKE 1 TABLET BY MOUTH DAILY 10/29 completed Not Available Not Available Not Available metoprolo l succinate ER 50 mg tablet,ex tended release 24 hr TAKE 1 TABLET BY MOUTH EVERY DAY DIRECTED 2024 active Not Available Not Available Not Avai lable hydrocodo ne 5 mg-acetam inophen 325 mg tablet 11/13 completed Not Available Not Available Not Available enalapril maleate 20 mg tablet 07/24 completed Not Available Not Available Not Available prednison e 20 mg tablet TAKE 2 TABLETS BY MOUTH DAILY 10/30 completed Not Available Not Available Not Available [...] TAKE 1 TABLET BY MOUTH EVERY MORNING 10/30 completed Not Available Not Available Not Available benzonata te 100 mg capsule Take [...] 1 TABLET BY MOUTH TWICE DAILY DIRECTED 2024 active Not Available Not Available Not [...] completed Not Available Not Available Not Available doxycycli ne hyclate 100 mg tablet TAKE 1 TABLET BY MOUTH EVERY 12 HOURS active Not Available Not Available No t Available loratadin e 10 mg tablet TAKE 1 TABLET BY MOUTH ONCE DAILY 10/30 completed Not Available Not Available Not Available naproxen 500 mg tablet Take 1 [...] (vitamin D3) 1,250 mcg (50,000 unit) capsule 10/30 completed Not Available Not Available Not Available [...] mL twice a day by oral route. 10/30 completed Not Available Not Available Not Available Boost Plus 0.06 gram-1.5 kcal/mL oral liquid [...] Updated DateTime 06/11/2024 172.72 cm 15.5 kg/m2 16574.42 g 86 /min 111/73 mm[Hg] Radhika Salazar MA [facility] 06/11/2024 17:27:53 Date Recorded Body height Body mass index (BMI) Body weight Heart rate Oxygen saturation Systolic And Diastolic Provider Name and Address Organization Details Last Updated DateTime 172.72 cm 16.6 kg/m2 55334.5 7 g 103 /min 90 % 126/82 mm[Hg] Dariana Hanley MA [facility] 17:01:24 Date Recorded Body height Body mass index (BMI) Body weight Heart rate Systolic And Diastolic Provider Name and Address Organization Details Last Updated DateTime 10/30/2024 172.72 cm 16.2 kg/m2 91418.67 g 100 /min 88/44 mm[Hg] Bela Torres MA [facility] 10/30/2024 16:36:14 Date Recorded Oxygen saturation Inhaled oxygen flow rate Provider Name and Address Organization Details Last Updated DateTime 10/30/2024 96 % 2 L/min Dannielle Griffith LPN [facility] 10/30/2024 16:40:42 Date Recorded Body height Body mass index (BMI) Body weight Heart rate Systolic And Diastolic Provider Name and Address Organization Details Last Updated DateTime 02/12/2024 172.72 cm 15.7 kg/m2 49971.09 g 98 /min 90/61 mm[Hg] Haydee Blankenship MA [facility] 02/12/2024 17:48:24 Date Recorded Body height Body mass index (BMI) Body weight Body temperature Oxygen saturation Heart rate Systolic And Diastolic Provider Name and Address Organization Details Last Updated DateTime 3 172.72 cm 15.2 kg/m2 88471.2 4 g 98 [degF] 95 % 139 /min 120/78 mm[Hg] Dariana Hanley MA [facility] 3 15:13:46 Social History Question Answer Notes LastModified by [employer] Details LastModified Time Tobacco Smoking Status Former Smoker Dariana Hanley MA [facility], [facility] 02/18/2021 15:19:08 Do You Have An Advance Directive? No Information not available 10/30/2024 What Is Your Level Of Caffeine Consumption? Heavy Information not available 09/03/2014 What Was The Date Of Your Most Recent Tobacco Screening? 10/30/2024 Information not available 10/30/2024 What Is Your Relationship Status? Information not available 10/30/2024 Do You Have Smoke And Carbon Monoxide Detectors In Your Home? Yes Information not available 10/30/2024 At What Age Did You Start Smoking Tobacco? 15 Information not available 09/03/2014 How Much Tobacco Do You Smoke? 0.5 PPD Information not available 02/05/2019 Has Tobacco Cessation Counseling Been Provided? Yes Information not available 09/26/2022 On What Date Was Tobacco Cessation Counseling Provided? 10/30/2024 Information not available 10/30/2024 How Many Years Have You Smoked Tobacco? 40 Information not available 02/05/2019 Sex: Unknown Functional Status Question Answer Note LastModified by [employer] Details LastModified Time Do you use any illicit or recreational drugs? No Information not available 10/30/2024 Do you or have you ever used [...] Blood Pressure Y COPD Y Heart Attack ([place]) Y Anxiety Disorder Y Stroke Y High Cholesterol Y Heart Failure Y Gynecological HistoryNo gynecological history recorded. Obstetrics History GPAL:G 0 P 0 0 0 0 Immunizations Vaccine Type Date Status Note Provider Nam e and Address Organization Details Recorded Time Influenza, split virus, quadrivalent, PF 2 completed Not Available [facility] 10/30/2024 16:17:29 Influenza, split virus, quadrivalent, PF 3 completed Not Available [facility] 10/30/2024 16:17:29 Influenza, split virus, quadrivalent, preservative 8 completed Not Available [facility] 04/06/2019 02:42:37 Pneumococcal conjugate PCV20, polysaccharide HQK615 conjugate, adjuvant, PF 5 completed Kayla Fowler MA [facility] 10/30/2024 17:22:13 Past Encounters Encounter ID Performer Location Encounter Start Date Encounter Closed Date Diagnosis/Indication Diagnosis SNOMED-CT Code Diagnosis ICD10 Code Diagnosis IMO Codes Diagnosis Note [id number] [facility] [address] [place] [address] [phone] 09/03/2014 16:10:47 09/04/2014 09:22:03 Backache 833042850 Demonstrat ed back with stretching exercises Anxiety disorder 876022071 [id number] Yang Rosales MD [facility] (Adult Med) [address] [place] [address] [phone] 01/13/2015 16:12:11 01/15/2015 13:58:00 Acute myocardial infarction of inferolateral wall 60408848 I21.19 Decrease in appetite 643 30813 R63.0 Pressure i njury of buttock 647971721 L89.302 Pressure u lcer stage 2 927648556 L89.92 Anxiety disorder F41.9 Essential hypertension 62935427 I10 Backache 714215371 M54.9 Demonstrat ed back with stretching exercises Pain in le ft lower limb 438760458 M79.605 Pain in ri ght lower limb 448025566 M79.604 [id number] MD Zina Chavarria (Adult Med) [address] [place] [address] [id number] 04/21/2015 12:07:24 04/21/2015 17:42:34 Pain in left lower limb 429342376 M79.605 Essential hypertension 10719986 I10 Backache 889212572 M54.9 Demonstrat ed back with stretching exercises Anxiety disorder F41.9 Cough 38900417 R05 Decrease in appetite 643 93816 R63.0 [id number] MD Zina Chavarria (Adult Med) [address] [place] [address] [id number] 0 12/29/2016 13:49:16 12/29/2016 16:01:35 Chronic obstructive pulmonary disease 39506480 J44.9 History of myocardial infarction 187568702 I25.2 Essential hypertension 93562535 I10 [id number] MD Zina Chavarria (Adult Med) [address] [place] [address] [phone] 12/29/2016 13:53:48 12/29/2016 16:40:58 [id number] MD Zina Chavarria (Adult Med) [address] [place] [address] [phone] 03/22/2017 10:47:44 03/22/2017 14:38:21 Chronic obstructive pulmonary disease 27930639 J44.9 Essential hypertension 23246827 I10 Tobacco user 482563573 Z 72.0 Bronchitis 19518375 J40 [id number] MD Zina Chavarria (Adult Med) [address] [place] [address] [id number] 0 05/03/2017 15:17:13 05/03/2017 16:57:52 Essential hypertension 36190111 I10 Neuropathy 781069388 G62 .9 Will try to manage without meds Depressive disorder 3548 9007 F32.9 [id number] MD Zina Chavarria (Adult Med) [address] [place] [address] [phone] 07/24/2017 14:05:04 07/25/2017 11:27:14 Bronchitis 99011260 J40 [id number] MD Zina Chavarria (Adult Med) [address] [place] [address] [phone] 08/10/2017 15:32:43 08/15/2017 12:10:28 Generalized aches and pains 79764068 R52 Chronic ob structive pulmonary disease 11232585 J44.9 Bronchitis 96400410 J40 [id number] MD Zina Chavarria (Adult Med) [address] [place] [address] [id number] 11/13/2017 16:49:20 11/14/2017 11:05:18 Generalized aches and pains 07681915 R52 Combine naproxen with acetaminop hen BID Chronic ob structive pulmonary disease 83831606 J44.9 Decrease in appetite 643 02622 R63.0 Hyperglycemia 88486067 R 73.9 [id number] MD Zina Chavarria (Adult Med) [address] [place] [address] [id number] 03/07/2018 15:17:31 03/08/2018 09:48:15 Chronic obstructive pulmonary disease 34306098 J44.9 Bronchitis 22091832 J40 Peripheral arterial occlusive disease 573075273 I73.9 Active immunization 3387 9002 Z23 [id number] MD Zina Chavarria (Adult Med) [address] [place] [address] [id number] 05/31/2018 16:37:31 06/01/2018 09:25:02 History of myocardial infarction 070494490 I25.2 Chronic ob structive pulmonary disease 51151339 J44.9 OK to resume Albuterol nebulizer and atrovent HFA Essential hypertension 36896233 I10 Peripheral arterial occlusive disease 453919988 I73.9 Coronary atherosclerosis 311889952 I25.119 F/U with cardiology post stent placement [id number] MD Zina Chavarria (Adult Med) [address] [place] [address] [id number] 08/02/2018 16:05:42 08/03/2018 09:30:08 Coronary atherosclerosis 936616477 I25.119 F/U with cardiology post stent placement Peripheral arterial occlusive disease 090358440 I73.9 Discussed importance of smoking cessation. Suggested very gradual decrease to as little as 1 cig /d every 2-3 weeks Depressive disorder 3548 9007 F32.9 Increase venlafaxin e Tobacco user 778526681 Z 72.0 Chronic ob structive pulmonary disease 09897242 J44.9 OK to resume Albuterol nebulizer and atrovent HFA [id number] MD Zina Chavarria (Adult Med) [address] [place] [address] [id number] 11/27/2018 17:07:11 11/28/2018 13:10:18 Neuropathy 521353154 G62.9 Will try to manage without meds Peripheral arterial occlusive disease 379033533 I73.9 Discussed importance of smoking cessation. Suggested very gradual decrease to as little as 1 cig /d every 2-3 weeks Tobacco user 052362237 Z 72.0 Bronchitis 62183723 J40 Decrease in appetite 643 77969 R63.0 boost [id number] MD Zina Chavarria (Adult Med) [address] [place] [address] [phone] 02/05/2019 16:58:39 02/06/2019 11:59:44 Spasm 25555057 R25.2 [id number] MD Zina Chavarria (Adult Med) [address] [place] [address] [phone] 08/05/2019 16:09:59 08/06/2019 14:14:21 Tobacco user 772223347 Z72.0 Chronic ob structive pulmonary disease 91793218 J44.9 OK to resume Albuterol nebulizer and atrovent HFA [id number] MD Zina Chavarria (Adult Med) [address] [place] [address] [id number] 02/19/2020 08:27:58 02/20/2020 13:30:50 Chronic pain syndrome 106750705 G89.4 Advised pt to contact marijuana dispensari es re access to prescribin g physicians [id number] MD Zina Chavarria (Adult Med) [address] [place] [address] [id number] 09/30/2020 14:50:47 10/06/2020 15:08:06 Pain in right lower limb 285169642 M79.604 Peripheral arterial occlusive disease 304567147 I73.9 Discussed importance of smoking cessation. Suggested very gradual decrease to as little as 1 cig /d every 2-3 weeks Pain in le ft lower limb 707512513 M79.605 Contact de rmatitis caused by urushiol from [facility] han 170213321 L25.5 Improved. Complete prednisone and start antihistam ine [id number] MD Zina Chavarria (Adult Med) [address] [place] [address] [id number] 0 12/29/2020 15:37:37 01/05/2021 12:45:55 Peripheral arterial occlusive disease 892770026 I73.9 Recent redo of AF bypass. F'U with surg Essential hypertension 17017398 I10 Neuropathy 611176506 G62 .9 Coronary atherosclerosis 402674202 I25.119 F/U with cardiology post stent placement [id number] MD Zina Chavarria (Adult Med) [address] [place] [address] [id number] 02/18/2021 15:04:20 02/19/2021 10:33:33 Peripheral arterial occlusive disease 615755531 I73.9 Recent redo of AF bypass. F'U with surg Essential hypertension 58045791 I10 Chronic ob structive pulmonary disease 79791997 J44.9 OK to resume Albuterol nebulizer and atrovent HFA Neuropathy 492386297 G62 .9 Spasm 68992829 R25.2 [id number] MD Zina Chavarria (Adult Med) [address] [place] [address] [id number] 0 07/13/2021 15:38:29 07/15/2021 05:33:26 Bronchitis 05563556 J40 . Will rx symbicort Coronary atherosclerosis 512401636 I25.119 F/U with cardiology post stent placement Depressive disorder 5434 9001 F32.9 Increase venlafaxin e Essential hypertension 18764653 I10 Chronic ob structive pulmonary disease 57794108 J44.9 Continue ipratropiu m [id number] MD Zina Chavarria (Adult Med) [address] [place] [address] [id number] 11/16/2021 15:56:06 11/17/2021 08:19:08 Chronic obstructive pulmonary disease 84481637 J44.9 Continue ipratropiu m per Dr. Rosales note on 07/13/21. Pt needs script Moderate protein-calorie malnutrition (weight for age 60-74 percent of standard) 934483704 E44.0 Cellulitis 887743987 L03 .90 [id number] MD Zina Chavarria (Adult Med) [address] [place] [address] [id number] 02/01/2022 11:34:25 02/04/2022 11:56:06 Bronchitis 24957702 J40 . Will rx symbicort Chronic ob structive pulmonary disease 18836647 J44.9 Continue ipratropiu m per Dr. Rosales note on 07/13/21. Pt needs script Essential hypertension 75556292 I10 Hyperglycemia 41562728 R 73.9 Neuropathy 833457797 G62 .9 Tobacco user 709269867 Z 72.0 [id number] MD Zina Guajardo (Adult Med) [address] [place] [address] [id number] 0 03/23/2022 14:54:38 03/24/2022 10:48:21 Infection of right ear 9757470976 719452 H66.91 Discussed with patient, she agreed to try med as ordered. F/U with her PCP. [id number] MD Zina Chavarria (Adult Med) [address] [place] [address] [id number] 09/26/2022 14:32:59 09/29/2022 14:35:29 Underweight 515696930 R63.6 Insect bite of hand 2833 63591 S60.561A Abdominal pain 39087857 R10.9 Anxiety disorder 8639456 06 F41.9 Allergic rhinitis 503273 04 J30.9 Chronic ob structive pulmonary disease 82506008 J44.9 Continue ipratropiu m per Dr. Rosales note on 07/13/21. Pt needs script Essential hypertension 87370086 I10 Will do labs on return [id number] MD Zina Chavarria (Adult Med) [address] [place] [address] [id number] 02/22/2023 14:57:14 02/27/2023 16:25:08 Moderate protein-calorie malnutrition (weight for age 60-74 percent of standard) 981570429 E44.0 Thrombosis of arteries of upper extremity 45785338 I74.2 History of acute respiratory failure 5000352950 6699511 Z87.09 [id number] MD Zina Chavarria (Adult Med) [address] [place] [address] [id number] 0 08/24/2023 16:41:51 08/25/2023 14:40:00 Moderate protein-calorie malnutrition (weight for age 60-74 percent of standard) 441601090 E44.0 Chronic ob structive pulmonary disease 43827380 J44.9 Continue ipratropiu m per Dr. Rosales note on 07/13/21. Pt needs script Bronchitis 82819484 J40 . Will rx symbicort Coronary atherosclerosis 481788778 I25.119 F/U with cardiology post stent placement Dependence on continuous supplemental oxygen 9965215633 9103 Z99.81 Essential hypertension 42092589 I10 pt requesting BP monitor. History of myocardial infarction 229594041 I25.2 Hyperglycemia 63749885 R 73.9 Neuropathy 154089772 G62 .9 Peripheral arterial occlusive disease 563107865 I73.9 Recent redo of AF bypass. F'U with surg Thrombosis of arteries of upper extremity 03223774 I74.2 Allergic rhinitis 618785 04 J30.9 Depressive disorder 8368 5887 F32.9 Increase venlafaxin e [id number] MD Zina Chavarria (Adult Med) [address] [place] [phone] 02/12/2024 17:10:52 02/14/2024 12:16:03 Underweight [id number] R63.6 Order protein supplement Depressive disorder [id number] F32.9 Refer to [id number] MD Zina Chavarria (Adult Med) [address] [place] [phone] 06/11/2024 17:06:31 06/13/2024 14:50:56 Memory impairment [id number] R41.3 Moderate protein-calorie malnutrition (weight for age 60-74 percent of standard) [id number] E44.0 Essential hypertension [id number] I10 pt requesting BP monitor. Dependence on continuous supplemental oxygen [id number] 9103 Z99.81 F/U pulmonary [id number] Jasen Cardenas MD [facility] (Adult Med) [address] [place] [phone] 10/30/2024 16:15:41 10/31/2024 09:20:43 Chronic obstructive pulmonary disease [id number] J44.9 Recent flare now resolved, supportive Neuropathy [id number] G62 .9 Partially controlled , add tylenol bid Moderate protein-calorie malnutrition (weight for age 60-74 percent of standard) [id number] E44.0 Education, reorder Boost Health Concerns Section Related Observation LastModified by Organization Detai ls LastModified Time None Recorded Concern Status LastModified by Organization Details LastModified Time None Recorded Advance Directives Directive N: Payers Insurance Date Sequence Insurance Name Policy Number Policy Cabrera Covered Member ID Cabrera Member ID Guarantor Name 01/26/2025 1 [facility] ON OR AFTER 09/17/20 (MEDICAID REPLACEMENT - HMO) Carly Oliveira [id number] Carly Oliveira 10/30/2024 1 [facility] PRIOR TO 09/17/2020 (MEDICAID REPLACEMENT - HMO) Carly Oliveira [id number] Carly Oliveira Notes Date Note Type Note Provider Name and Address Organization Details Recorded Time 02/22/2023 text/html Recently admitted to [facility] for cardiorespiratory arrest. Sent to rehab post discharge for about one week. No Pt/OT or Home health visits to date. She is currently on Home O2 and CPAP. Had clot in right arm. She has lost her appetite Yang Rosales MD Attn: Accounting,[address] [facility], [place], [address], [facility] 02/22/2023 17:01:06 08/24/2023 text/html Here for routine f/u. Feels OK. Needs med refills. Has not used walker in about six months. Did not get protein supplement. Has not smoked in five months Yang Rosales MD Attn: Accounting,[address] [facility], [place], [address], [place] - [facility] 08/24/2023 17:39:15 02/12/2024 text/html Accompanied b her son.Pt is not motivated to move about much. Wants protein supplement. Yang Rosales MD Attn: Accounting,[address] [facility], [place], [address], [place] [facility] 02/13/2024 10:30:46 06/11/2024 text/html Here for f/u Appetite is poor in association with variable cognitive status. Needs to get Boost plus. Has experienced recent alteration in alertness and memory loss. Was not seen by Yang Rosales MD Attn: Accounting,[address] [facility], [place], [address], [place] [facility] 06/27/2024 13:07:19 10/30/2024 text/html S/p recent discharge for copd flare. Pt is doing well. She is tolerating home o2 with bipap. No new meds. Pt is requesting Boost, chocolate flavor instead of vanilla. No chest pain or sob Jasen Cardenas MD Attn: Accounting,[address] [facility], [place], [address], [place] [facility] 10/30/2024 17:39:27 OBGyn Episode No OBEpisode recorded.
[2025-02-16] MEDS: SODIUM CHLORIDE 0.9% IV 1,000 ML 999 ML IV CONT (20:35)
[2025-02-16 20:36] LABS: Hematocrit 40.3 % (37.0-47.0); Hemoglobin 11.7 g/dL (12.0-15.0); Immature Granulocyte Percent A 0.9 % (0-0.5); Lymphocytes Absolute Auto 1.25 K/mm3 (0.9-3.2); Mean Corpuscular HGB Conc 29.0 g/dl (32-36); Mean Corpuscular Hemoglobin 28.0 pg (26-34); Mean Corpuscular Volume 96.4 fl (80-100); Nucleated Red Blood Cells Absolute Auto 0.000 K/mm3 (0.0-0.012); Nucleated Red Blood Cells Perc 0.0 % (0.0-0.2); Platelet Count Result 290 k/mm3 (150-375); Red Blood Count 4.18 M/mm3 (4.2-5.4); White Blood Count 16.3 K/mm3 (4.5-10.0)
[2025-02-16] MEDS: IPRATROPIUM 0.5 MG/ALBUTEROL SULFATE 2.5 MG (BASE) AMPUL.NEB 3 ML INHALATION (20:46)
[2025-02-16 20:50] LABS: INR 1.6; Partial Thromboplastin Time 38.3 Seconds (22.3-36.8); Prothrombin Time 18.5 Seconds (11.1-14.7)
[2025-02-16 20:58] LABS: Alveolar/Arterial O2 Gradient 36.1 mmHg; Fractional Inspired Oxygen 28 %; HCO3 ABG 43.4 mEq/l (22.0-26.0); Oxygen Content ABG 17.3 %vol (16.0-22.0); Oxygen Saturation ABG 95.4 % (95.0-100.0); PO2 ABG 80.0 mmHg (80.0-100.0); PO2 FiO2 Ratio Arterial Blood 2.86 %
[2025-02-16 20:58] LABS: Alanine Aminotransferase 14 U/L (6-35); Albumin Level 3.6 g/dL (3.5-5.1); Alkaline Phosphatase 105 U/L (38-126); Aspartate Amino Transferase 26 U/L (14-36); Bilirubin,Total 0.8 mg/dL (0.2-1.3); Blood Urea Nitrogen 10 mg/dL (7-17); Calcium 9.4 mg/dL (8.4-10.2); Chloride 87 mmol/L (98-107); Estimated CRCL calculation 73 ml/min; Estimated Glomerular Filt Rate > 60; Glucose 170 mg/dL (65-110); Lipase 26 U/L (23-300); Magnesium 2.0 mg/dL (1.6-2.3); Potassium 4.0 mmol/L (3.4-5.0); Sodium 136 mmol/L (137-145); Total Protein 7.6 g/dL (6.3-8.2)
[2025-02-16 21:03] LABS: Carbon Dioxide > 40 mmol/L (22-30)
[2025-02-16 21:05] LABS: Liters per Minute 2.0 LPM; Modified Allen's Test Pass; PCO2 ABG 70.8 mmHg (35.0-45.0); Site Drawn RIGHT RADIAL
[2025-02-16 21:05] LABS: NT Pro B Type Natriuretic Pept 598 pg/mL (19.9-100); Troponin I < 0.012 ng/mL (0.000-0.034)
--- NOTE | 2025-02-16 21:05 | PCRCNOTE ---
ABG delayed due RT detained with other patient procedure and imaging
[2025-02-16 21:18] LABS: Procalcitonin 0.1 ng/mL
--- NOTE | 2025-02-16 21:18 | ED.GENADULT ---
HPI - General Adult General Chief complaint: Shortness of Breath/Dyspnea Stated complaint: SOB, possible UTI Time Seen by Provider: 02/16/25 19:51 History of Present Illness HPI narrative: Patient is 64-year-old male presents emergency department chief complaint of not feeling well patient reports that at home her infection test was positive patient reports he also has history of COPD and reports that she has been having difficulty getting out of the that the patient reports he wears chronic oxygen reports that she has felt a little short of breath as well Related Data Home Medications ?Medication ?Instructions ?Recorded ?Confirmed ?Last Taken ?Type albuterol sulfate 90 mcg/actuation 2 puff inhalation Q6H PRN sob 03/27/23 11/19/24 10/14/24 History aerosol inhaler apixaban 5 mg tablet (Eliquis) 5 mg PO BID 03/27/23 11/19/24 10/13/24 History atorvastatin 80 mg tablet 80 mg PO HS 03/27/23 11/19/24 10/13/24 History gabapentin 300 mg capsule 300 mg PO TID 03/27/23 11/19/24 10/13/24 History losartan 50 mg tablet 50 mg PO DAILY 03/27/23 11/19/24 10/13/24 History metoprolol succinate 50 mg 50 mg PO DAILY 03/27/23 11/19/24 10/13/24 History tablet,extended release 24 hr venlafaxine 37.5 mg tablet 37.5 mg PO BID 03/27/23 11/19/24 10/13/24 History budesonide-formoterol HFA 160 2 puff inhalation Q12H 11/19/24 11/19/24 Unknown History mcg-4.5 mcg/actuation aerosol inhaler (Symbicort) tiotropium bromide 2.5 2 puff inhalation DAILY 11/19/24 11/19/24 Unknown History mcg/actuation mist for inhalation (Spiriva Respimat) Allergies Allergy/AdvReac Type Severity Reaction Status Date / Time Penicillins Allergy Other Verified 02/16/25 21:55 Review of Systems Review of Systems: A 10 system review of systems was completed on the patient and is negative except for what is stated in the HPI. Nursing and ancillary documentation was reviewed. [facility] Past Medical History Medical History COPD (chronic obstructive pulmonary disease) Atrial fibrillation PAD (peripheral artery disease) Coronary disease Anxiety Chronic respiratory failure Hypertension Depression Surgical History Surgical History Hx of peripheral artery bypass Family History Family History Father Mesothelioma Mother Heart disease Social History Social History Social History: Patient still smoking up to 3 cigarettes per day. No alcohol or drug use. Full code. Lives at home with son, dtr-in-law and grandchild. Full code. She nominates her son to be the one who would make medical decisions for her if she is unable. Smoking packs per day: 1 Smoking cigarettes per day: 20.0 Years smoked: 50 Smoking pack-years: 50.00 Smoking status: Former smoker Tobacco type: cigarettes and e-cigarettes/vaping Smoking end date: 10/07/24 Alcohol intake: never Substance use: current Substance use type: marijuana Last use: 10/11/24 Lack of Transportation: No Lack of Food: Sometimes True Current Housing: I Have Housing Concerned About Future Housing: No Difficulty Paying Gas/Electric Bills: No Difficulty Paying for Meds: No Currently Unemployed: No Education: Grade School Difficulty w/ Childcare or Family Care: No Spiritual care concerns: No Exam Narrative: GENERAL: Well-appearing, well-nourished, and in no acute distress. HEAD: Normocephalic, atraumatic. EYES: PERRLA and EOMI. ENT: Nares clear, no rhinorrhea or epistaxis. Mucous membranes moist. NECK: Supple. CHEST: Clear to auscultation. No respiratory distress. HEART: Regular rate and rhythm. No murmur heard. Normal peripheral pulses. ABDOMEN: Soft, nontender, nondistended, normal active bowel sounds. EXTREMITIES: Normal range of motion. No edema. SKIN: Warm, dry, no rash. NEURO: No focal deficits. Alert and oriented x3. PSYCH: Normal mood and affect. Course Vital Signs Vital signs: Vital Signs Pulse Rate 120 H 02/16/25 19:56 Respiratory Rate 30 H 02/16/25 19:56 Blood Pressure 109/75 02/16/25 19:56 Pulse Oximetry 96 02/16/25 19:56 Oxygen Delivery Nasal Cannula 02/16/25 19:56 Oxygen Flow Rate 2 02/16/25 19:56 Temperature 36.9 C 02/16/25 20:44 Pulse Rate 109 H 02/16/25 22:07 Respiratory Rate 27 H 02/16/25 22:07 Blood Pressure 124/69 02/16/25 22:07 Pulse Oximetry 100 02/16/25 22:07 Oxygen Delivery Nasal Cannula 02/16/25 21:01 Oxygen Flow Rate 2 02/16/25 21:01 Medical Decision Making MDM Narrative Medical decision making narrative: Differential diagnosis includes pneumonia, COPD exacerbation, UTI, sepsis, Chest x-ray showed no focal infiltrate urinalysis showed greater than 100 white blood cells and 3+ leukocyte esterase 1+ bacteria troponin was 0 hour and 3 hour white blood cell count was elevated at 16.3 ABG showed a pH of 7.45 with a pCO2 of 70 and a PO2 80 Blood cultures were obtained lactic acid was normal at 1.1 out procalcitonin was 0.1 The patient was started on Rocephin Vital Signs Vital Signs: Vital Signs Pulse Rate 120 H 02/16/25 19:56 Respiratory Rate 30 H 02/16/25 19:56 Blood Pressure 109/75 02/16/25 19:56 Pulse Oximetry 96 02/16/25 19:56 Oxygen Delivery Nasal Cannula 02/16/25 19:56 Oxygen Flow Rate 2 02/16/25 19:56 Temperature 36.9 C 02/16/25 20:44 Pulse Rate 109 H 02/16/25 22:07 Respiratory Rate 27 H 02/16/25 22:07 Blood Pressure 124/69 02/16/25 22:07 Pulse Oximetry 100 02/16/25 22:07 Oxygen Delivery Nasal Cannula 02/16/25 21:01 Oxygen Flow Rate 2 02/16/25 21:01 Lab Data 02/16/25 20:18 02/16/25 20:18 Labs: Lab Results 02/16/25 02/16/25 02/16/25 Range/Units 20:18 20:18 20:21 WBC 16.3 H (4.5-10.0) K/mm3 RBC 4.18 L (4.2-5.4) M/mm3 Hgb 11.7 L (12.0-15.0) g/dL Hct 40.3 (37.0-47.0) % MCV 96.4 (80-100) fl MCH 28.0 (26-34) pg MCHC 29.0 L (32-36) g/dl RDW 12.6 (11.5-14.5) % Plt Count 290 D (150-375) k/mm3 MPV 8.6 (7.4-10.4) fl Immature Gran % (Auto) 0.9 H (0-0.5) % Neut % (Auto) 79.8 H (45.5-73.1) % Lymph % (Auto) 7.7 L (18.3-44.2) % [place] % (Auto) 11.2 H (2.6-8.5) % Eos % (Auto) 0.1 (0-4.4) % Baso % (Auto) 0.3 (0.2-1.2) % Lymph # (Auto) 1.25 (0.9-3.2) K/mm3 [place] # (Auto) 1.8 H (0.1-0.6) K/mm3 Eos # (Auto) 0.0 (0-0.3) K/mm3 Baso # (Auto) 0.1 (0.0-0.1) K/mm3 Abs Immat Gran (auto) 0.15 H (0.00-0.031) K/mm3 Absolute Neuts (auto) 13.0 H (1.3-6.7) K/mm3 Absolute Nucleated RBC 0.000 (0.0-0.012) K/mm3 Nucleated RBC % 0.0 (0.0-0.2) % PT 18.5 H (11.1-14.7) Seconds INR 1.6 APTT 38.3 H (22.3-36.8) Seconds Sodium 136 L (137-145) mmol/L Potassium 4.0 (3.4-5.0) mmol/L Chloride 87 L (98-107) mmol/L Carbon Dioxide > 40 H (22-30) mmol/L Anion Gap (4-12) mmol/L BUN 10 D (7-17) mg/dL Creatinine 0.67 L (0.7-1.0) mg/dL Estim Creat Clear Calc 73 ml/min Estimated GFR > 60 (59 - ) Glucose 170 H (65-110) mg/dL Lactic Acid 1.1 (0.7-2.0) mmol/L Calcium 9.4 (8.4-10.2) mg/dL Magnesium 2.0 (1.6-2.3) mg/dL Total Bilirubin 0.8 (0.2-1.3) mg/dL AST 26 (14-36) U/L ALT 14 (6-35) U/L Alkaline Phosphatase 105 (38-126) U/L Troponin I < 0.012 < 0.012 (0.000-0.034) ng/mL NT-Pro-B Natriuret Pep 598 H (19.9-100) pg/mL Total Protein 7.6 (6.3-8.2) g/dL Albumin 3.6 (3.5-5.1) g/dL Lipase 26 (23-300) U/L Procalcitonin 0.1 ng/mL Urine Color (Yellow) Urine Appearance (Clear) Urine pH (5.0-9.0) Ur Specific Panther (1.001-1.035) Urine Protein (Negative) mg/dL Urine Glucose (UA) (Negative) mg/dL Urine Ketones (Negative) mg/dL Ur Blood (Man) (Negative) Urine Nitrate (Negative) Urine Bilirubin (Negative) Urine Urobilinogen (<2.0) mg/dL Leukocyte Esterase Rfl (Negative) KARENA/UL Urine RBC (0-2) /hpf Urine WBC (0-3) /hpf Ur Squamous Epith Cells (Few) /hpf Urine Bacteria /hpf Urine Casts Influenza A (RT-PCR) Pending Influenza B (RT-PCR) Pending RSV (RT-PCR) Pending SARS-CoV-2 RNA (RT-PCR) Pending 02/16/25 Range/Units 21:46 WBC (4.5-10.0) K/mm3 RBC (4.2-5.4) M/mm3 Hgb (12.0-15.0) g/dL Hct (37.0-47.0) % MCV (80-100) fl MCH (26-34) pg MCHC (32-36) g/dl RDW (11.5-14.5) % Plt Count (150-375) k/mm3 MPV (7.4-10.4) fl Immature Gran % (Auto) (0-0.5) % Neut % (Auto) (45.5-73.1) % Lymph % (Auto) (18.3-44.2) % [place] % (Auto) (2.6-8.5) % Eos % (Auto) (0-4.4) % Baso % (Auto) (0.2-1.2) % Lymph # (Auto) (0.9-3.2) K/mm3 [place] # (Auto) (0.1-0.6) K/mm3 Eos # (Auto) (0-0.3) K/mm3 Baso # (Auto) (0.0-0.1) K/mm3 Abs Immat Gran (auto) (0.00-0.031) K/mm3 Absolute Neuts (auto) (1.3-6.7) K/mm3 Absolute Nucleated RBC (0.0-0.012) K/mm3 Nucleated RBC % (0.0-0.2) % PT (11.1-14.7) Seconds INR APTT (22.3-36.8) Seconds Sodium (137-145) mmol/L Potassium (3.4-5.0) mmol/L Chloride (98-107) mmol/L Carbon Dioxide (22-30) mmol/L Anion Gap (4-12) mmol/L BUN (7-17) mg/dL Creatinine (0.7-1.0) mg/dL Estim Creat Clear Calc ml/min Estimated GFR (59 - ) Glucose (65-110) mg/dL Lactic Acid (0.7-2.0) mmol/L Calcium (8.4-10.2) mg/dL Magnesium (1.6-2.3) mg/dL Total Bilirubin (0.2-1.3) mg/dL AST (14-36) U/L ALT (6-35) U/L Alkaline Phosphatase (38-126) U/L Troponin I (0.000-0.034) ng/mL NT-Pro-B Natriuret Pep (19.9-100) pg/mL Total Protein (6.3-8.2) g/dL Albumin (3.5-5.1) g/dL Lipase (23-300) U/L Procalcitonin ng/mL Urine Color Dark yellow (Yellow) Urine Appearance Turbid H (Clear) Urine pH 8.5 (5.0-9.0) Ur Specific Panther 1.011 (1.001-1.035) Urine Protein 2+ H (Negative) mg/dL Urine Glucose (UA) Negative (Negative) mg/dL Urine Ketones Negative (Negative) mg/dL Ur Blood (Man) 3+ H (Negative) Urine Nitrate Positive H (Negative) Urine Bilirubin Negative (Negative) Urine Urobilinogen 1.0 (<2.0) mg/dL Leukocyte Esterase Rfl 3+ H (Negative) KARENA/UL Urine RBC >100 H (0-2) /hpf Urine WBC >100 H (0-3) /hpf Ur Squamous Epith Cells None seen (Few) /hpf Urine Bacteria 4+ /hpf Urine Casts 0-2 Influenza A (RT-PCR) Influenza B (RT-PCR) RSV (RT-PCR) SARS-CoV-2 RNA (RT-PCR) ABG Data ABG results: 02/16/25 20:46 Puncture Site Right radial ABG pH 7.405 ABG pCO2 70.8 H* ABG pO2 80.0 ABG PO2/FiO2 Ratio 2.86 ABG HCO3 43.4 H ABG O2 Saturation 95.4 ABG O2 Content 17.3 ABG Base Excess 15.3 A-a Gradient 36.1 Oxyhemoglobin 94.5 Total Hemoglobin 13.0 O2 Delivery Device Nasal cannula O2 Liters/Min 2.0 FiO2 28 Discharge Plan Discharge Clinical Impression: Generalized weakness, UTI (urinary tract infection) Patient Disposition: Still a Patient Condition: Stable Patient Language: Qatari Prescriptions: No Action budesonide-formoterol [Symbicort] 160-4.5 mcg/actuation HFA aerosol inhaler 2 puff inhalation Q12H Spiriva Respimat 2.5 mcg/actuation mist 2 puff inhalation DAILY metoprolol succinate 50 mg tablet extended release 24 hr 50 mg PO DAILY venlafaxine 37.5 mg tablet 37.5 mg PO BID gabapentin 300 mg capsule 300 mg PO TID albuterol sulfate 90 mcg/actuation HFA aerosol inhaler 2 puff INHALATION Q6H PRN (Reason: sob) Eliquis 5 mg tablet 5 mg PO BID losartan 50 mg tablet 50 mg PO DAILY atorvastatin 80 mg tablet 80 mg PO HS Follow-up/Referrals: Miki Osei [Other] Time of Disposition: 22:22
[2025-02-16 21:58] LABS: Add Urine Microscopic? YES; Appearance Urine Turbid (Clear); Glucose Urine UA Negative (Negative); Leukocyte Esterase Ur 3+ LEU/UL (Negative); Nitrate Urine Positive (Negative); Non Pathogenic Casts 0-2; Specific Grav Ur 1.011 (1.001-1.035)
[2025-02-16 23:12] LABS: Influenza A QL RT-PCR Negative (Negative); Influenza B QL RT-PCR Negative (Negative); RSV RNA, RT-PCR Negative (Negative); SARS-CoV-2 RNA PCR Negative (Negative)
[2025-02-16] MEDS: cefTRIAXone 1 GM in SODIUM CHLORIDE 0.9% IV 50 ML 100 ML IVPB (23:16)
--- NOTE | 2025-02-16 23:20 | WPCEDHO ---
ED Hand Off Checklist All vitals saved:YES IV Site documented:YES All med administrations documented:YES Triage Note Triage Note patient states that she has been 02/16/25 19:56 feeling sick for a week. patient states she has not been able to get out of bed. patient complains of urinary difficulties, weakness, and shortness of breath Allergies Penicillins Allergy (Verified 02/16/25 21:55) Other Family History (Last Reviewed 02/16/25 @ 21:19 by Tyree Mendez MD) Father Mesothelioma Mother Heart disease Administered/Completed Medications Discontinued Medications Albuterol/Ipratropium (Ipratropium 0.5 Mg/Albuterol Sulfate 2.5 Mg (Base) Ampul.Neb 3 Ml) 3 ml INHALATION ONCE STA Stop: 02/16/25 20:09 Last Admin: 02/16/25 20:46 Dose: 3 ml Documented By: TOREY Sodium Chloride (Normal Saline Iv) 1,000 mls @ 999 mls/hr IV CONT .Q1H1M STA Stop: 02/16/25 21:08 Last Infusion: 02/16/25 23:17 Dose: Infused Documented By: Admin: 02/16/25 20:35 Dose: 999 mls/hr Documented By: MALIK Ceftriaxone Sodium 1 gm/ (Sodium Chloride) 50 mls @ 100 mls/hr IVPB ONCE STA Stop: 02/16/25 22:48 Last Admin: 02/16/25 23:16 Dose: 100 mls/hr Documented By: MALIK Notes 02/16/25 21:05 Respiratory Therapy Note by Tori Arriaga delayed due RT detained with other patient procedure and imaging Initialized on 02/16/25 21:05 - END OF NOTE Interventions/Assessments IV / Saline Lock, Insert Start: 02/16/25 19:34 Freq: Status: Active Protocol: Document 02/16/25 20:36 MALIK (Rec: 02/16/25 20:36 MALIK [id number]) IV Assessment Peripheral Access Left IV Catheter Access Initiated IV Insertion Date 02/16/25 IV Insertion Time 20:00 Catheter Gauge 18 IV Insertion 1 Attempts Ultrasound Used for No Placement IV Care and WNL Maintenance PA: Cardiovascular Assessment Start: 02/16/25 19:34 Freq: Status: Active Protocol: Document 02/16/25 19:56 JJ (Rec: 02/16/25 20:01 [facility] [id number]) Cardiovascular Assessment Skin Description Cool PA: Respiratory Assessment Start: 02/16/25 19:34 Freq: Status: Active Protocol: Document 02/16/25 19:56 [facility] (Rec: 02/16/25 20:01 [facility] [id number]) Oxygen Delivery Oxygen Delivery Room Air Pulse Oximetry (90- 95 100) Respiratory Assessment Symptoms None Cough Description None Last Vital Signs Temperature 97.4 F L 02/16/25 23:17 Pulse Rate 109 H 02/16/25 23:17 Respiratory Rate 24 H 02/16/25 23:17 Pulse Oximetry 100 02/16/25 23:17 Blood Pressure 138/72 02/16/25 23:17 Blood Pressure Mean 94 02/16/25 23:17 Blood Pressure Position Supine 02/16/25 23:17 Oxygen Delivery Nasal Cannula 02/16/25 21:01 Oxygen Flow Rate 2 02/16/25 21:01 Weight 63.6 kg 02/16/25 19:56 Last Result - Abnormals Only WBC 16.3 K/mm3 (4.5-10.0) H 02/16/25 20:18 RBC 4.18 M/mm3 (4.2-5.4) L 02/16/25 20:18 Hgb 11.7 g/dL (12.0-15.0) L 02/16/25 20:18 MCHC 29.0 g/dl (32-36) L 02/16/25 20:18 Immature Gran % (Auto) 0.9 % (0-0.5) H 02/16/25 20:18 Neut % (Auto) 79.8 % (45.5-73.1) H 02/16/25 20:18 Lymph % (Auto) 7.7 % (18.3-44.2) L 02/16/25 20:18 [place] % (Auto) 11.2 % (2.6-8.5) H 02/16/25 20:18 [place] # (Auto) 1.8 K/mm3 (0.1-0.6) H 02/16/25 20:18 Abs Immat Gran (auto) 0.15 K/mm3 (0.00-0.031) H 02/16/25 20:18 Absolute Neuts (auto) 13.0 K/mm3 (1.3-6.7) H 02/16/25 20:18 PT 18.5 Seconds (11.1-14.7) H 02/16/25 20:18 APTT 38.3 Seconds (22.3-36.8) H 02/16/25 20:18 ABG pCO2 70.8 mmHg (35.0-45.0) H* 02/16/25 20:46 ABG HCO3 43.4 mEq/l (22.0-26.0) H 02/16/25 20:46 Sodium 136 mmol/L (137-145) L 02/16/25 20:18 Chloride 87 mmol/L (98-107) L 02/16/25 20:18 Carbon Dioxide > 40 mmol/L (22-30) H 02/16/25 20:18 Creatinine 0.67 mg/dL (0.7-1.0) L 02/16/25 20:18 Glucose 170 mg/dL (65-110) H 02/16/25 20:18 NT-Pro-B Natriuret Pep 598 pg/mL (19.9-100) H 02/16/25 20:18 Urine Appearance Turbid (Clear) H 02/16/25 21:46 Urine Protein 2+ mg/dL (Negative) H 02/16/25 21:46 Ur Blood (Man) 3+ (Negative) H 02/16/25 21:46 Urine Nitrate Positive (Negative) H 02/16/25 21:46 Leukocyte Esterase Rfl 3+ KARENA/UL (Negative) H 02/16/25 21:46 Urine RBC >100 /hpf (0-2) H 02/16/25 21:46 Urine WBC >100 /hpf (0-3) H 02/16/25 21:46 Most Recent Suicide Severity Rating Suicide Severity Rating NO RISK INDICATED 02/16/25 19:56
[2025-02-17] VITALS (20 sets, daily range): BP systolic 96–141; BP diastolic 53–73; PULSE 82–119; RESP 14–18; TEMP 36.4–37; O2SAT 95–100; BMI 15.3
--- NOTE | 2025-02-17 00:05 | ADMGEN ---
This patient, Carly Oliveira, was admitted to Medical Room 258-. Patient/family oriented to hospital policies and general routines including ID bracelet, bed and alarms, visiting hours, pain management, procedures, bathroom and other care routines, personal items, smoking policy, room service/diet, and visiting hours. Information on how to activate the Rapid Response Team has been discussed. Patient/Family are encouraged to report perceived risks to care and to ask questions if they do not understand what they are told or what they should do.
[2025-02-17] MEDS: ACETAMINOPHEN 325 MG TABLET 650 MG PO (00:34)
[2025-02-17] MEDS: IPRATROPIUM 0.5 MG/ALBUTEROL SULFATE 2.5 MG (BASE) AMPUL.NEB 3 ML INHALATION ×4 (02:34→22:11)
--- NOTE | 2025-02-17 04:05 | PM.IMHP ---
H&P: HPI History of Present Illness Date/Time: 02/17/25 04:05 Chief Complaint: Shortness of breath dyspnea Narrative: This is a 64-year-old female patient came to the emergency room because she was not feeling well. She stated that she took a home a urine infection test at home and it was positive. She also has a history of COPD and is chronically on oxygen. She stated that she feels a little more shortness of breath as well. Her white count was noted to be 16.3. Her hemoglobin was 11.7 with last known hemoglobin on 10/17/2024 it was 10.8. Arterial blood gases her CO2 was 70.8 with a normal pH. She has chronic hypercapnia and is compensated. Her oxygen is at 2 L per nasal cannula. Her sodium slightly low 136. Her blood glucose was noted to be 170. Troponin is negative. BNP 598. Urine is turbid with 2+ urine protein, 3+ blood, positive nitrate, 3+ leukocyte esterase, urine RBCs greater than 100, urine wbc's greater than 100. She was negative for influenza A/B and RSV. She was given a nebulizer treatment in the emergency room and started on ceftriaxone. She was also given IV fluids. Chest x-ray was read per ED physician as no focal infiltrate. The patient is being admitted to observation status on the date of service of 02/17/2025. Review of Systems Constitutional: Constitutional: Reports as per HPI and Reports no additional constitutional complaints Eyes: Eyes: Reports as per HPI and Reports no additional eye complaints ENT: Reports system reviewed and no additional complaints, except as documented and Reports Normal hearing present Cardiovascular: Cardiovascular: Reports no additional cardiovascular complaints Respiratory: Respiratory: Reports as per HPI and Reports no additional respiratory complaints Gastrointestinal: Gastrointestinal: Reports as per HPI and Reports no additional gastrointestinal complaints Genitourinary: Genitourinary: Reports no additional female genitourinary complaints Musculoskeletal: Musculoskeletal: Reports no additional musculoskeletal complaints Integumentary/Breasts: Skin/Breast: Reports system reviewed and no additional complaints, except as docu Neurologic: Reports system reviewed and no additional complaints, except as documented and Reports Normal hearing present Psychiatric: Psychiatric: Reports no additional psychiatric complaints and Reports as per HPI Hematologic/Lymphatic: Hematologic/Lymphatic: Reports no additional hematologic/lymphatic complaints Allergic/Immunologic: Allergic/Immunologic: Reports no additional allergic/immunologic complaints [facility] Past Medical History Medical History (Updated 02/17/25 @ 04:44 by Roxanne Sutton APRN) Hyperlipidemia Obstructive sleep apnea COPD (chronic obstructive pulmonary disease) Atrial fibrillation PAD (peripheral artery disease) Coronary disease Anxiety Chronic respiratory failure Hypertension Depression Surgical History Surgical History Hx of peripheral artery bypass Family History Family History Father Mesothelioma Mother Heart disease Social History Social History (Updated 02/17/25 @ 04:24 by Roxanne Sutton APRN) Social History: No alcohol or drug use. Lives at home with son, dtr-in-law and grandchild. Full code. She nominates her son to be the one who would make medical decisions for her if she is unable. Code status: Full code. Smoking packs per day: 1 Smoking cigarettes per day: 20.0 Years smoked: 50 Smoking pack-years: 50.00 Smoking status: Former smoker Tobacco type: cigarettes Smoking end date: 10/07/24 Alcohol intake: never Substance use: never Substance use type: marijuana Last use: 10/11/24 Lack of Transportation: No Lack of Food: Never True Current Housing: I Have Housing Concerned About Future Housing: No Difficulty Paying Gas/Electric Bills: No Difficulty Paying for Meds: No Currently Unemployed: No Education: Grade School Difficulty w/ Childcare or Family Care: No Spiritual care concerns: No Meds Home Medications and Allergies Home Medications ?Medication ?Instructions ?Recorded ?Confirmed ?Type albuterol sulfate 90 mcg/actuation 2 puff inhalation Q6H PRN sob 03/27/23 02/17/25 History aerosol inhaler apixaban 5 mg tablet (Eliquis) 5 mg PO BID 03/27/23 02/17/25 History atorvastatin 80 mg tablet 80 mg PO HS 03/27/23 02/17/25 History gabapentin 300 mg capsule 300 mg PO TID 03/27/23 02/17/25 History losartan 50 mg tablet 50 mg PO DAILY 03/27/23 02/17/25 History metoprolol succinate 50 mg 50 mg PO DAILY 03/27/23 02/17/25 History tablet,extended release 24 hr venlafaxine 37.5 mg tablet 37.5 mg PO BID 03/27/23 02/17/25 History budesonide-formoterol HFA 160 2 puff inhalation Q12H 11/19/24 02/17/25 History mcg-4.5 mcg/actuation aerosol inhaler (Symbicort) Allergies Allergy/AdvReac Type Severity Reaction Status Date / Time Penicillins Allergy Other Verified 02/17/25 00:18 Vital Signs Vital Signs - 24 hr 02/16/25 19:56 02/16/25 19:56 02/16/25 20:44 Temperature 98.5 F Pulse Rate 120 H Respiratory Rate 30 H Blood Pressure 109/75 Pulse Oximetry 96 95 Oxygen Delivery Nasal Cannula Room Air Oxygen Flow Rate 2 02/16/25 20:50 02/16/25 21:00 02/16/25 21:01 Temperature Pulse Rate 100 100 Respiratory Rate 16 16 Blood Pressure Pulse Oximetry 95 Oxygen Delivery Nasal Cannula Oxygen Flow Rate 2 02/16/25 22:07 02/16/25 23:17 02/17/25 00:11 Temperature 97.4 F L 98.6 F Pulse Rate 109 H 109 H 115 H Respiratory Rate 27 H 24 H 18 Blood Pressure 124/69 138/72 141/73 H Pulse Oximetry 100 100 99 Oxygen Delivery Oxygen Flow Rate 02/17/25 00:22 02/17/25 00:55 02/17/25 01:17 Temperature Pulse Rate 107 H 114 H Respiratory Rate 18 Blood Pressure Pulse Oximetry 100 96 Oxygen Delivery Nasal Cannula Autopap Oxygen Flow Rate 2 02/17/25 02:35 02/17/25 02:46 02/17/25 02:47 Temperature 97.5 F L Pulse Rate 95 98 87 Respiratory Rate 18 18 18 Blood Pressure 98/53 L Pulse Oximetry 100 Oxygen Delivery Oxygen Flow Rate Exam Const: General: cooperative, comfortable, no acute distress, well developed, awake, Physically active, average body habitus and well nourished Nutritional Appearance: average body habitus and well nourished Orientation/consciousness: oriented to person, oriented to place, oriented to time and patient oriented x3 Limitations: no limitations HENMT: Head: normal to inspection, No palpable skull fracture present, normocephalic, atraumatic and abrasion Ears: hearing grossly normal bilaterally Eyes: General: appearance normal, both eyes and all related structures Alignment and Position: alignment normal Periorbital: periorbital findings normal Eyelids: eyelids normal Neck: Neck: normal visual inspection and full ROM Chest: Chest palpation & inspection: normal inspection of the chest Resp: Effort & Inspection: normal respiratory effort Auscultation: wheezes lower bilaterally Cardio: Palpation: normal PMI Rate: regular rate Rhythm: regular rhythm Heart sounds: S1 normal heart sound present and S2 normal heart sound present Peripheral pulses: Peripheral pulses 2+ throughout Skin: General skin exam: normal color Lesions: no lesions Rashes: no rashes Trauma: no lacerations or abrasions Wounds: no wounds Hair: normal Nails: normal Neuro: General: oriented to person, oriented to place, oriented to time and patient oriented x3 Cranial nerves: Yes Equal, round and reactive pupils present and Yes Normal hearing present Extrem: General: normal to inspection Right upper extremity: normal to inspection and shoulder/upper arm Left upper extremity: normal to inspection and shoulder/upper arm Right lower extremity: normal to inspection Left lower extremity: normal to inspection Psych: Appearance: grossly normal Mental Status: mental status grossly normal Speech and movement: Normal speech and movement present Affect: normal affect Attitude: cooperative Thought process: Normal thought process present Thought content: Yes Normal thought content present Insight: Good insight present (Psych) Judgement: Good judgement present (Psych) H&P: Results Labs Labs: Short CBC 02/16/25 Range/Units 20:18 WBC 16.3 H (4.5-10.0) K/mm3 Hgb 11.7 L (12.0-15.0) g/dL Hct 40.3 (37.0-47.0) % Plt Count 290 D (150-375) k/mm3 BMP 02/16/25 20:18 Sodium 136 L Potassium 4.0 Chloride 87 L Carbon Dioxide > 40 H BUN 10 D Creatinine 0.67 L Glucose 170 H Calcium 9.4 Cardiac Enzymes 02/16/25 02/16/25 Range/Units 20:18 20:18 Troponin I < 0.012 < 0.012 (0.000-0.034) ng/mL Liver Function 02/16/25 Range/Units 20:18 Total Bilirubin 0.8 (0.2-1.3) mg/dL AST 26 (14-36) U/L ALT 14 (6-35) U/L Alkaline Phosphatase 105 (38-126) U/L Albumin 3.6 (3.5-5.1) g/dL Urine 02/16/25 Range/Units 21:46 Urine Color Dark yellow (Yellow) Urine Appearance Turbid H (Clear) Urine pH 8.5 (5.0-9.0) Ur Specific [place] 1.011 (1.001-1.035) Urine Protein 2+ H (Negative) mg/dL Urine Glucose (UA) Negative (Negative) mg/dL ECG Interpretation: 123 OK 125 QRSd 89 QT 277 QTc 397 --[place]-- P 79 QRS 90 T 37 SINUS TACHYCARDIA NONSPECIFIC T-WAVE ABNORMALITY ABNORMAL RHYTHM ECG Compared to ECG 10/14/2024 12:02:49 T-wave abnormality now present Atrial abnormality no longer present Imaging Chest x-ray: Radiologist's impression: ITS Impressions Chest X-Ray 02/17/25 08:03 IMPRESSION: 1. No acute cardiopulmonary findings given portable technique. Assessment and Plan Assessment and plan (1) UTI (urinary tract infection): Code(s): N39.0 - Urinary tract infection, site not specified Status: Acute Assessment and Plan: -Rocephin was started. -blood and urine cultures are pending -she does not appear to be septic her heart rate is less than 90 and her blood pressures 98/53. -check lactic acid (2) Hypertension: Qualifiers: Hypertension type: primary hypertension Qualified Code(s): I10 - Essential (primary) hypertension Code(s): I10 - Essential (primary) hypertension Status: Acute Assessment and Plan: -at this time her blood pressures 98/53. -continue with losartan and metoprolol if map is greater than 60. Hold metoprolol if heart rate less than 50. -monitor daily labs. -her white count is 16.3. Monitor CBC daily (3) Atrial fibrillation: Code(s): I48.91 - Unspecified atrial fibrillation Status: Acute Assessment and Plan: -paroxysmal AFib is likely -she is currently in sinus rhythm. Occasionally sinus tachycardia. -continue with Eliquis -continue with metoprolol if blood pressure allows and hold if map less than 60 and are pulse is less than 50. (4) Hyperlipidemia: Code(s): E78.5 - Hyperlipidemia, unspecified Status: Acute Assessment and Plan: -continue with atorvastatin (5) COPD (chronic obstructive pulmonary disease): Code(s): J44.9 - Chronic obstructive pulmonary disease, unspecified Status: Acute Assessment and Plan: -the patient chronically wears oxygen at 2 L per nasal cannula. -I held her albuterol inhaler and started nebs p.r.n.. And DuoNebs around the clock (6) Acute and chronic respiratory failure, unspecified whether with hypoxia or hypercapnia: Code(s): J96.20 - Acute and chronic respiratory failure, unspecified whether with hypoxia or hypercapnia Status: Acute Assessment and Plan: -the patient is chronically on oxygen to 2 L. She has compensated hypercapnia. (7) Obstructive sleep apnea: Code(s): G47.33 - Obstructive sleep apnea (adult) (pediatric) Status: Acute Assessment and Plan: -continue to auto titrate CPAP. (8) Depression: Code(s): F32.A - Depression, unspecified Status: Acute Assessment and Plan: -continue with venlafaxine (9) Marijuana abuse: Code(s): F12.10 - Cannabis abuse, uncomplicated Status: Acute Assessment and Plan: -she recently was counseled on this by pulmonology. Quality VTE Prophylaxis VTE prophylaxis: pharmacologic ordered
[2025-02-17 05:46] LABS: Hematocrit 39.2 % (37.0-47.0); Hemoglobin 11.3 g/dL (12.0-15.0); Mean Corpuscular HGB Conc 28.8 g/dl (32-36); Mean Corpuscular Hemoglobin 28.6 pg (26-34); Mean Corpuscular Volume 99.2 fl (80-100); Platelet Count Result 252 k/mm3 (150-375); Red Blood Count 3.95 M/mm3 (4.2-5.4); White Blood Count 16.2 K/mm3 (4.5-10.0)
[2025-02-17 06:09] LABS: Blood Urea Nitrogen 13 mg/dL (7-17); Calcium 9.0 mg/dL (8.4-10.2); Chloride 92 mmol/L (98-107); Estimated CRCL calculation 54 ml/min; Estimated Glomerular Filt Rate > 60; Glucose 152 mg/dL (65-110); Potassium 4.0 mmol/L (3.4-5.0); Sodium 137 mmol/L (137-145)
[2025-02-17 06:40] LABS: Carbon Dioxide > 40 mmol/L (22-30)
[2025-02-17] MEDS: METOPROLOL SUCCINATE EXT REL 50 MG TABCR PO (08:25)
[2025-02-17] MEDS: APIXABAN 5 MG TABLET PO ×2 (08:26→21:41)
[2025-02-17] MEDS: VENLAFAXINE HCL 37.5 MG TABLET PO ×2 (08:26→16:55)
[2025-02-17] MEDS: GABAPENTIN 300 MG CAPSULE PO ×3 (08:26→16:55)
[2025-02-17] MEDS: FLUTICASONE/SALMETEROL 115-21 MCG INHALER 1 PUFF 2 PUFF INHALATION ×2 (08:37→22:15)
--- NOTE | 2025-02-17 12:22 | PM.IMPN2 ---
Subjective Date/time seen: 02/17/25 12:22 Interval history: Patient doing well today. Spoke with the nurse and she stated that sounds concerned about her mobility. Recommending PT and OT. Patient does seem overly than and not moving great around in bed. She is requiring assistance up. She is not have any pain today. She denies chest pain, shortness a breath, nausea, vomiting and lower extremity swelling. Urine culture still pending. Exam Narrative: GENERAL: Comfortable, cachectic HENMT: moist mucous membranes EYES: EOM intact b/l RESPIRATORY: clear to auscultation, no increased respiratory effort CARDIO: Regular rate and rhythm GI: soft, nontender, bowel sounds present SKIN/EXTREMITIES: no rashes, no edema, no redness or tenderness Objective Data Vital Signs Vital Signs: Vital Signs - 24 hr 02/16/25 19:56 02/16/25 19:56 02/16/25 20:44 Temperature 98.5 F Pulse Rate 120 H Respiratory Rate 30 H Blood Pressure 109/75 Pulse Oximetry 96 95 Oxygen Delivery Nasal Cannula Room Air Oxygen Flow Rate 2 02/16/25 20:50 02/16/25 21:00 02/16/25 21:01 Temperature Pulse Rate 100 100 Respiratory Rate 16 16 Blood Pressure Pulse Oximetry 95 Oxygen Delivery Nasal Cannula Oxygen Flow Rate 2 02/16/25 22:07 02/16/25 23:17 02/17/25 00:11 Temperature 97.4 F L 98.6 F Pulse Rate 109 H 109 H 115 H Respiratory Rate 27 H 24 H 18 Blood Pressure 124/69 138/72 141/73 H Pulse Oximetry 100 100 99 Oxygen Delivery Oxygen Flow Rate 02/17/25 00:22 02/17/25 00:55 02/17/25 01:17 Temperature Pulse Rate 107 H 114 H Respiratory Rate 18 Blood Pressure Pulse Oximetry 100 96 Oxygen Delivery Nasal Cannula Autopap Oxygen Flow Rate 2 02/17/25 02:35 02/17/25 02:46 02/17/25 02:47 Temperature 97.5 F L Pulse Rate 95 98 87 Respiratory Rate 18 18 18 Blood Pressure 98/53 L Pulse Oximetry 100 Oxygen Delivery Oxygen Flow Rate 02/17/25 04:00 02/17/25 08:00 02/17/25 08:25 Temperature Pulse Rate 93 115 H 103 H Respiratory Rate Blood Pressure Pulse Oximetry Oxygen Delivery Oxygen Flow Rate 02/17/25 08:25 02/17/25 08:37 02/17/25 08:41 Temperature Pulse Rate 90 89 Respiratory Rate 18 18 Blood Pressure Pulse Oximetry 100 Oxygen Delivery Nasal Cannula Oxygen Flow Rate 2 Intake/Output Intake/Output: Intake & Output 02/14/25 02/15/25 02/16/25 02/17/25 23:59 23:59 23:59 23:59 Intake Total 1000 650 Balance 1000 650 Meds/Results Medications: Active Medications Generic Name Dose Route Start Last Admin Trade Name Freq PRN Reason Stop Dose Admin Acetaminophen 650 mg 02/16/25 22:29 02/17/25 00:34 Acetaminophen 325 Mg Tablet PO 650 mg Q4H PRN Administration Mild Pain (1-3) or Fever Albuterol 2.5 mg 02/17/25 04:20 Albuterol Sulfate Neb 2.5 Mg/3 Ml Inh INHALATION Q4HRT PRN Shortness Of Breath Albuterol/Ipratropium 3 ml 02/17/25 02:00 02/17/25 08:35 Ipratropium 0.5 Mg/Albuterol Sulfate 2.5 Mg (Base) Ampul.Neb 3 Ml INHALATION 3 ml Q6HRT JIHAN Administration Apixaban 5 mg 02/17/25 09:00 02/17/25 08:26 Apixaban 5 Mg Tablet PO 5 mg Q12HR JIHAN Administration Atorvastatin Calcium 80 mg 02/17/25 21:00 Atorvastatin 40 Mg Tablet PO HS JIHAN Gabapentin 300 mg 02/17/25 09:00 02/17/25 08:26 Gabapentin 300 Mg Capsule PO 300 mg TID JIHAN Administration Ceftriaxone Sodium 1 gm/ 50 mls @ 100 mls/hr 02/17/25 22:00 Sodium Chloride IVPB Q24H JIHAN Losartan Potassium 50 mg 02/17/25 09:00 02/17/25 08:26 Losartan Potassium 50 Mg Tablet PO Not Given DAILY JIHAN Metoprolol Succinate 50 mg 02/17/25 09:00 02/17/25 08:25 Metoprolol Succinate Ext Rel 50 Mg Tabcr PO 50 mg DAILY JIHAN Administration Ondansetron HCl 4 mg 02/16/25 22:29 Ondansetron Inj 4 Mg/2 Ml Vial IV PUSH Q4H PRN Nausea Fluticasone/Salmeterol 2 puff 02/17/25 08:00 02/17/25 08:37 Fluticasone/Salmeterol 115-21 Mcg Inhaler 1 Puff INHALATION 2 puff Q12HRT JIHAN Administration Venlafaxine HCl 37.5 mg 02/17/25 08:00 02/17/25 08:26 Venlafaxine Hcl 37.5 Mg Tablet PO 37.5 mg BIDWM JIHAN Administration Radiology Results: ITS Impressions Chest X-Ray 02/17/25 08:03 IMPRESSION: 1. No acute cardiopulmonary findings given portable technique. Labs Labs: Laboratory Results - last 24 hr 02/16/25 02/16/25 02/16/25 20:18 20:18 20:21 WBC 16.3 H RBC 4.18 L Hgb 11.7 L Hct 40.3 MCV 96.4 MCH 28.0 MCHC 29.0 L RDW 12.6 Plt Count 290 D MPV 8.6 Immature Gran % (Auto) 0.9 H Neut % (Auto) 79.8 H Lymph % (Auto) 7.7 L [place] % (Auto) 11.2 H Eos % (Auto) 0.1 Baso % (Auto) 0.3 Lymph # (Auto) 1.25 [place] # (Auto) 1.8 H Eos # (Auto) 0.0 Baso # (Auto) 0.1 Abs Immat Gran (auto) 0.15 H Absolute Neuts (auto) 13.0 H Absolute Nucleated RBC 0.000 Nucleated RBC % 0.0 PT 18.5 H INR 1.6 APTT 38.3 H Puncture Site ABG pH ABG pCO2 ABG pO2 ABG PO2/FiO2 Ratio ABG HCO3 ABG O2 Saturation ABG O2 Content ABG Base Excess A-a Gradient Oxyhemoglobin Total Hemoglobin O2 Delivery Device O2 Liters/Min FiO2 Sodium 136 L Potassium 4.0 Chloride 87 L Carbon Dioxide > 40 H Anion Gap BUN 10 D Creatinine 0.67 L Estim Creat Clear Calc 73 Estimated GFR > 60 Glucose 170 H Lactic Acid 1.1 Calcium 9.4 Magnesium 2.0 Total Bilirubin 0.8 AST 26 ALT 14 Alkaline Phosphatase 105 Troponin I < 0.012 < 0.012 NT-Pro-B Natriuret Pep 598 H Total Protein 7.6 Albumin 3.6 Lipase 26 Procalcitonin 0.1 Urine Color Urine Appearance Urine pH Ur Specific [place] Urine Protein Urine Glucose (UA) Urine Ketones Ur Blood (Man) Urine Nitrate Urine Bilirubin Urine Urobilinogen Leukocyte Esterase Rfl Urine RBC Urine WBC Ur Squamous Epith Cells Urine Bacteria Urine Casts Influenza A (RT-PCR) Negative Influenza B (RT-PCR) Negative RSV (RT-PCR) Negative SARS-CoV-2 RNA (RT-PCR) Negative 02/16/25 02/16/25 02/17/25 20:46 21:46 05:37 WBC 16.2 H RBC 3.95 L Hgb 11.3 L Hct 39.2 MCV 99.2 MCH 28.6 MCHC 28.8 L RDW 12.7 Plt Count 252 MPV 8.9 Immature Gran % (Auto) Neut % (Auto) Lymph % (Auto) [place] % (Auto) Eos % (Auto) Baso % (Auto) Lymph # (Auto) [place] # (Auto) Eos # (Auto) Baso # (Auto) Abs Immat Gran (auto) Absolute Neuts (auto) Absolute Nucleated RBC Nucleated RBC % PT INR APTT Puncture Site Right radial ABG pH 7.405 ABG pCO2 70.8 H* ABG pO2 80.0 ABG PO2/FiO2 Ratio 2.86 ABG HCO3 43.4 H ABG O2 Saturation 95.4 ABG O2 Content 17.3 ABG Base Excess 15.3 A-a Gradient 36.1 Oxyhemoglobin 94.5 Total Hemoglobin 13.0 O2 Delivery Device Nasal cannula O2 Liters/Min 2.0 FiO2 28 Sodium 137 Potassium 4.0 Chloride 92 L Carbon Dioxide > 40 H Anion Gap BUN 13 Creatinine 0.65 L Estim Creat Clear Calc 54 Estimated GFR > 60 Glucose 152 H Lactic Acid 1.3 Calcium 9.0 Magnesium Total Bilirubin AST ALT Alkaline Phosphatase Troponin I NT-Pro-B Natriuret Pep Total Protein Albumin Lipase Procalcitonin Urine Color Dark yellow Urine Appearance Turbid H Urine pH 8.5 Ur Specific [place] 1.011 Urine Protein 2+ H Urine Glucose (UA) Negative Urine Ketones Negative Ur Blood (Man) 3+ H Urine Nitrate Positive H Urine Bilirubin Negative Urine Urobilinogen 1.0 Leukocyte Esterase Rfl 3+ H Urine RBC >100 H Urine WBC >100 H Ur Squamous Epith Cells None seen Urine Bacteria 4+ Urine Casts 0-2 Influenza A (RT-PCR) Influenza B (RT-PCR) RSV (RT-PCR) SARS-CoV-2 RNA (RT-PCR) Assessment and Plan Assessment and Plan (1) UTI (urinary tract infection): Code(s): N39.0 - Urinary tract infection, site not specified Status: Acute Assessment and Plan: -Rocephin was started 02/17/25 -Blood and urine cultures are pending -She does not appear to be septic her heart rate is less than 90 and her blood pressures 98/53. (2) Hypertension: Qualifiers: Hypertension type: primary hypertension Qualified Code(s): I10 - Essential (primary) hypertension Code(s): I10 - Essential (primary) hypertension Status: Acute Assessment and Plan: -At this time her blood pressures 98/53. -continue with losartan and metoprolol if map is greater than 60. Hold metoprolol if heart rate less than 50. -monitor daily labs. -her white count is 16.3. Monitor CBC daily -lactic acid 1.3 (3) Atrial fibrillation: Code(s): I48.91 - Unspecified atrial fibrillation Status: Acute Assessment and Plan: -paroxysmal A-Fib is likely -she is currently in sinus rhythm. Occasionally sinus tachycardia. -continue with Eliquis -continue with metoprolol if blood pressure allows and hold if map less than 60 and are pulse is less than 50. (4) Hyperlipidemia: Code(s): E78.5 - Hyperlipidemia, unspecified Status: Acute Assessment and Plan: -continue with atorvastatin (5) COPD (chronic obstructive pulmonary disease): Code(s): J44.9 - Chronic obstructive pulmonary disease, unspecified Status: Acute Assessment and Plan: -The patient chronically wears oxygen at 2 L per nasal cannula. -Nebs p.r.n.. and DuoNebs around the clock (6) Acute and chronic respiratory failure, unspecified whether with hypoxia or hypercapnia: Code(s): J96.20 - Acute and chronic respiratory failure, unspecified whether with hypoxia or hypercapnia Status: Acute Assessment and Plan: -the patient is chronically on oxygen to 2 L. She has compensated hypercapnia. (7) Obstructive sleep apnea: Code(s): G47.33 - Obstructive sleep apnea (adult) (pediatric) Status: Acute Assessment and Plan: -continue to auto titrate CPAP. (8) Depression: Code(s): F32.A - Depression, unspecified Status: Acute Assessment and Plan: -continue with venlafaxine (9) Marijuana abuse: Code(s): F12.10 - Cannabis abuse, uncomplicated Status: Acute
--- NOTE | 2025-02-17 13:17 | P.CDI_ITS ---
CDI Query Clarification Request BMI: 15.4 Nutritional Diagnostic Statement: Please refer to the comprehensive nutrition assessment for further information. If you agree with diagnosis of Moderate protein calorie malnutrition related to chronic poor intake and increased protein energy needs in the setting of COPD as evidenced by intakes <75% needs >1 month; severe muscle wasting (temporalis, clavicles, shoulders, interosseous) and severe fat loss (cheeks). Please specify severity if known: * Mild * Moderate * Severe * Other/Unknown <Shwetha Donato RN - Last Filed: 02/17/25 13:18> Clarified Diagnosis Clarified Diagnosis: severe protein calorie malnutrition. <Gloria Steel PA-C - Last Filed: 02/17/25 14:17>
[2025-02-17] MEDS: ATORVASTATIN 40 MG TABLET 80 MG PO (21:41)
[2025-02-17] MEDS: cefTRIAXone 1 GM in SODIUM CHLORIDE 0.9% IV 50 ML 100 ML IVPB (21:41)
[2025-02-18] VITALS (18 sets, daily range): BP systolic 104–114; BP diastolic 52–62; PULSE 66–122; RESP 18–20; TEMP 36.3–37.6; O2SAT 96–100
[2025-02-18] MEDS: ONDANSETRON INJ 4 MG/2 ML VIAL IV PUSH (01:06)
[2025-02-18 04:38] LABS: Hematocrit 34.3 % (37.0-47.0); Hemoglobin 10.0 g/dL (12.0-15.0); Mean Corpuscular HGB Conc 29.2 g/dl (32-36); Mean Corpuscular Hemoglobin 28.0 pg (26-34); Mean Corpuscular Volume 96.1 fl (80-100); Platelet Count Result 245 k/mm3 (150-375); Red Blood Count 3.57 M/mm3 (4.2-5.4); White Blood Count 13.0 K/mm3 (4.5-10.0)
[2025-02-18 04:52] LABS: Blood Urea Nitrogen 16 mg/dL (7-17); Calcium 8.8 mg/dL (8.4-10.2); Chloride 93 mmol/L (98-107); Estimated CRCL calculation 62 ml/min; Estimated Glomerular Filt Rate > 60; Glucose 136 mg/dL (65-110); Potassium 3.9 mmol/L (3.4-5.0); Sodium 137 mmol/L (137-145)
[2025-02-18 05:29] LABS: Carbon Dioxide > 40 mmol/L (22-30)
--- NOTE | 2025-02-18 07:26 | P.PN_ITS ---
Progress Note: A&P Assessment and Plan (1) Sepsis: Code(s): A41.9 - Sepsis, unspecified organism Status: Acute Assessment and Plan: Meets SIRS criteria: tachycardia, leukocytosis - lactic acid WNL - Receieved 1L NS in the ED, will give additional 1L NS @ 100 ml/hr and monitor volume status given hx of diastolic dysfunction - suspected source: UTI - blood cultures drawn on 02/16: pending - Urine culture: pending - CXR unremarkable - See plan below for UTI (2) UTI (urinary tract infection): Code(s): N39.0 - Urinary tract infection, site not specified Status: Acute Assessment and Plan: - UA: turbid appearance with 2+ protein, 3+ blood, positive nitrates, 3+ leukocytes, >100 RBC, > 100 WBC, 4+ bacteria - UC obtained on 02/16: pending - No previous micro to be reviewed - started on Rocephin on 02/17 Continues to endorse dysuria (3) Hypertension: Qualifiers: Hypertension type: primary hypertension Qualified Code(s): I10 - Essential (primary) hypertension Code(s): I10 - Essential (primary) hypertension Status: Acute Assessment and Plan: Chronic -continue with losartan 50 mg daily and metoprolol 50 mg daily if map is greater than 60. Hold metoprolol if heart rate less than 50. - blood pressures reviewed and remain stable, continue to monitor (4) Atrial fibrillation: Code(s): I48.91 - Unspecified atrial fibrillation Status: Acute Assessment and Plan: - paroxysmal AFib, she is currently in sinus rhythm. Occasionally sinus tachycardia likely related to acute infection - continue with Eliquis - continue with metoprolol if blood pressure allows and hold if map less than 60 and are pulse is less than 50. (5) COPD (chronic obstructive pulmonary disease): Code(s): J44.9 - Chronic obstructive pulmonary disease, unspecified Status: Acute Assessment and Plan: -the patient chronically wears oxygen at 2 L per nasal cannula. - albuterol inhaler held and started nebs p.r.n.. (6) Obstructive sleep apnea: Code(s): G47.33 - Obstructive sleep apnea (adult) (pediatric) Status: Acute Assessment and Plan: -continue to auto titrate CPAP. (7) Acute and chronic respiratory failure, unspecified whether with hypoxia or hypercapnia: Code(s): J96.20 - Acute and chronic respiratory failure, unspecified whether with hypoxia or hypercapnia Status: Acute Assessment and Plan: -the patient is chronically on oxygen to 2 L. She has compensated hypercapnia. (8) Marijuana abuse: Code(s): F12.10 - Cannabis abuse, uncomplicated Status: Acute Assessment and Plan: -she recently was counseled on this by pulmonology. (9) Depression: Code(s): F32.A - Depression, unspecified Status: Acute Assessment and Plan: -continue with venlafaxine Time Spent With Patient Time with patient: 25 - 35 minutes Subjective Date/time seen: 02/18/25 07:26 Interval history: 64 year old female with past medical history of COPD on chronic oxygen of 2L NC, atrial fibrillation on eliquis, CAD, PAD, and hypertension presents to the hospital for a positive urine infection test at home. Patient is pleasant lying comfortably in bed. She continues to endorse pain with urination but otherwise denies any UTI like symptoms including burning sensation, hematuria, odor. She has no complaints denies chest pain, palpitations, shortness of breath, nausea/vomiting, and abdominal pain. Review of Systems Review of Systems: All systems reviewed & are unremarkable except as noted in HPI and below Exam Narrative: AF HR 104 RR 18 SPO2 99 2L NC (baseline) BP 109/62 General: female in no acute respiratory distress who is nontoxic appearing, lying semi recumbent in bed. HEENT: Normocephalic. Atraumatic. Extraocular movement intact. Sclera clear and anicteric. No facial asymmetry. Chest: Lungs are clear to auscultation bilaterally. No wheezes or crackles. CV: Heart was regular rhythm, tachycardic. Abd: Abdomen was soft. Nontender. Nondistended. Positive bowel sounds. No organomegaly or masses. Ext: No clubbing, cyanosis, or edema. DP pulses bilaterally. Neuro: Patient is alert and oriented x4. Speech is clear. Objective Data Vital Signs Vital Signs: Vital Signs - 24 hr 02/17/25 08:00 02/17/25 08:25 02/17/25 08:25 Temperature Pulse Rate 115 H 103 H Respiratory Rate Blood Pressure Pulse Oximetry 100 Oxygen Delivery Nasal Cannula Oxygen Flow Rate 2 02/17/25 08:37 02/17/25 08:41 02/17/25 08:55 Temperature Pulse Rate 90 89 82 Respiratory Rate 18 18 Blood Pressure Pulse Oximetry 95 Oxygen Delivery Nasal Cannula Oxygen Flow Rate 2 02/17/25 11:57 02/17/25 12:00 02/17/25 14:00 Temperature Pulse Rate 115 H 101 H Respiratory Rate 14 Blood Pressure 110/63 Pulse Oximetry 99 Oxygen Delivery Nasal Cannula Oxygen Flow Rate 2 02/17/25 14:22 02/17/25 14:22 02/17/25 16:00 Temperature Pulse Rate 113 H Respiratory Rate 18 18 Blood Pressure Pulse Oximetry Oxygen Delivery Oxygen Flow Rate 02/17/25 20:00 02/17/25 20:00 02/17/25 20:05 Temperature 97.7 F Pulse Rate 119 H 113 H 119 H Respiratory Rate 18 18 Blood Pressure 96/56 L Pulse Oximetry 97 97 Oxygen Delivery Nasal Cannula Oxygen Flow Rate 2 02/17/25 22:16 02/17/25 22:16 02/17/25 22:16 Temperature Pulse Rate 115 H 115 H 115 H Respiratory Rate 18 18 Blood Pressure Pulse Oximetry 95 95 Oxygen Delivery Nasal Cannula Oxygen Flow Rate 2 02/18/25 00:00 02/18/25 04:00 02/18/25 04:32 Temperature 97.6 F Pulse Rate 114 H 102 H 105 H Respiratory Rate 18 Blood Pressure 109/52 L Pulse Oximetry 100 Oxygen Delivery Oxygen Flow Rate Intake/Output Intake/Output: Intake & Output 02/15/25 02/16/25 02/17/25 02/18/25 23:59 23:59 23:59 23:59 Intake Total 1000 1310 190 Balance 1000 1310 190 Meds/Results Medications: Active Medications Generic Name Dose Route Start Last Admin Trade Name Freq PRN Reason Stop Dose Admin Acetaminophen 650 mg 02/16/25 22:29 02/17/25 00:34 Acetaminophen 325 Mg Tablet PO 650 mg Q4H PRN Administration Mild Pain (1-3) or Fever Albuterol 2.5 mg 02/17/25 04:20 Albuterol Sulfate Neb 2.5 Mg/3 Ml Inh INHALATION Q4HRT PRN Shortness Of Breath Albuterol/Ipratropium 3 ml 02/17/25 02:00 02/18/25 03:57 Ipratropium 0.5 Mg/Albuterol Sulfate 2.5 Mg (Base) Ampul.Neb 3 Ml INHALATION Not Given Q6HRT JIHAN Apixaban 5 mg 02/17/25 09:00 02/17/25 21:41 Apixaban 5 Mg Tablet PO 5 mg Q12HR JIHAN Administration Atorvastatin Calcium 80 mg 02/17/25 21:00 02/17/25 21:41 Atorvastatin 40 Mg Tablet PO 80 mg HS JIHAN Administration Gabapentin 300 mg 02/17/25 09:00 02/17/25 16:55 Gabapentin 300 Mg Capsule PO 300 mg TID JIHAN Administration Ceftriaxone Sodium 1 gm/ 50 mls @ 100 mls/hr 02/17/25 22:00 02/17/25 22:10 Sodium Chloride IVPB Infused Q24H JIHAN Infusion Losartan Potassium 50 mg 02/17/25 09:00 02/17/25 08:26 Losartan Potassium 50 Mg Tablet PO Not Given DAILY JIHAN Metoprolol Succinate 50 mg 02/17/25 09:00 02/17/25 08:25 Metoprolol Succinate Ext Rel 50 Mg Tabcr PO 50 mg DAILY [facility] Administration Ondansetron HCl 4 mg 02/16/25 22:29 02/18/25 01:06 Ondansetron Inj 4 Mg/2 Ml Vial IV PUSH 4 mg Q4H PRN Administration Nausea Fluticasone/Salmeterol 2 puff 02/17/25 08:00 02/17/25 22:15 Fluticasone/Salmeterol 115-21 Mcg Inhaler 1 Puff INHALATION 2 puff Q12HRT JIHAN Administration Venlafaxine HCl 37.5 mg 02/17/25 08:00 02/17/25 16:55 Venlafaxine Hcl 37.5 Mg Tablet PO 37.5 mg BIDWM JIHAN Administration Radiology Results: ITS Impressions Chest X-Ray 02/17/25 08:03 IMPRESSION: 1. No acute cardiopulmonary findings given portable technique. Labs Labs: Laboratory Results - last 24 hr 02/18/25 04:02 WBC 13.0 H RBC 3.57 L Hgb 10.0 L Hct 34.3 L MCV 96.1 MCH 28.0 MCHC 29.2 L RDW 12.7 Plt Count 245 MPV 9.1 Sodium 137 Potassium 3.9 Chloride 93 L Carbon Dioxide > 40 H Anion Gap BUN 16 Creatinine 0.56 L Estim Creat Clear Calc 62 Estimated GFR > 60 Glucose 136 H Lactic Acid 0.7 Calcium 8.8 Quality VTE Prophylaxis VTE prophylaxis: pharmacologic ordered
[2025-02-18] MEDS: FLUTICASONE/SALMETEROL 115-21 MCG INHALER 1 PUFF 2 PUFF INHALATION ×2 (07:46→20:00)
[2025-02-18] MEDS: IPRATROPIUM 0.5 MG/ALBUTEROL SULFATE 2.5 MG (BASE) AMPUL.NEB 3 ML INHALATION ×3 (07:46→20:00)
[2025-02-18] MEDS: METOPROLOL SUCCINATE EXT REL 50 MG TABCR PO (09:20)
[2025-02-18] MEDS: LOSARTAN POTASSIUM 50 MG TABLET PO (09:20)
[2025-02-18] MEDS: GABAPENTIN 300 MG CAPSULE PO ×3 (09:20→17:10)
[2025-02-18] MEDS: APIXABAN 5 MG TABLET PO ×2 (09:20→20:08)
[2025-02-18] MEDS: VENLAFAXINE HCL 37.5 MG TABLET PO ×2 (09:20→17:10)
[2025-02-18] MEDS: SODIUM CHLORIDE 0.9% IV 1,000 ML 100 ML IV CONT (13:51)
[2025-02-18] MEDS: ATORVASTATIN 40 MG TABLET 80 MG PO (20:08)
[2025-02-18] MEDS: cefTRIAXone 1 GM in SODIUM CHLORIDE 0.9% IV 50 ML 100 ML IVPB (21:03)
[2025-02-19] VITALS (16 sets, daily range): BP systolic 103–132; BP diastolic 50–68; PULSE 60–121; RESP 16–20; TEMP 36.2–36.5; O2SAT 90–98
[2025-02-19] MEDS: IPRATROPIUM 0.5 MG/ALBUTEROL SULFATE 2.5 MG (BASE) AMPUL.NEB 3 ML INHALATION ×3 (01:12→13:19)
[2025-02-19 04:57] LABS: Hematocrit 31.9 % (37.0-47.0); Hemoglobin 9.0 g/dL (12.0-15.0); Mean Corpuscular HGB Conc 28.2 g/dl (32-36); Mean Corpuscular Hemoglobin 27.8 pg (26-34); Mean Corpuscular Volume 98.5 fl (80-100); Platelet Count Result 233 k/mm3 (150-375); Red Blood Count 3.24 M/mm3 (4.2-5.4); White Blood Count 8.0 K/mm3 (4.5-10.0)
[2025-02-19 05:11] LABS: Blood Urea Nitrogen 13 mg/dL (7-17); Calcium 8.6 mg/dL (8.4-10.2); Chloride 96 mmol/L (98-107); Estimated CRCL calculation 62 ml/min; Estimated Glomerular Filt Rate > 60; Glucose 141 mg/dL (65-110); Potassium 4.5 mmol/L (3.4-5.0); Sodium 139 mmol/L (137-145)
[2025-02-19 06:15] LABS: Carbon Dioxide > 40 mmol/L (22-30)
[2025-02-19] MEDS: FLUTICASONE/SALMETEROL 115-21 MCG INHALER 1 PUFF 2 PUFF INHALATION (08:51)
[2025-02-19] MEDS: APIXABAN 5 MG TABLET PO ×2 (09:19→20:51)
[2025-02-19] MEDS: LOSARTAN POTASSIUM 50 MG TABLET PO (09:19)
[2025-02-19] MEDS: GABAPENTIN 300 MG CAPSULE PO ×3 (09:19→17:13)
[2025-02-19] MEDS: METOPROLOL SUCCINATE EXT REL 50 MG TABCR PO (09:19)
[2025-02-19] MEDS: VENLAFAXINE HCL 37.5 MG TABLET PO ×2 (09:20→17:13)
--- NOTE | 2025-02-19 14:46 | P.PNIM_ITS ---
Assessment and Plan Assessment and Plan (1) Sepsis: Code(s): A41.9 - Sepsis, unspecified organism Status: Acute Assessment and Plan: Meets SIRS criteria: tachycardia, leukocytosis - lactic acid WNL - Receieved 1L NS in the ED, will give additional 1L NS @ 100 ml/hr and monitor volume status given hx of diastolic dysfunction - suspected source: UTI - blood cultures drawn on 02/16: pending - Urine culture: pending - CXR unremarkable - See plan below for UTI (2) UTI (urinary tract infection): Code(s): N39.0 - Urinary tract infection, site not specified Status: Acute Assessment and Plan: - UA: turbid appearance with 2+ protein, 3+ blood, positive nitrates, 3+ leukocytes, >100 RBC, > 100 WBC, 4+ bacteria - UC obtained on 02/16: pending - No previous micro to be reviewed - started on Rocephin on 02/17 Continues to endorse dysuria wbc downtrending (3) Hypertension: Qualifiers: Hypertension type: primary hypertension Qualified Code(s): I10 - Essential (primary) hypertension Code(s): I10 - Essential (primary) hypertension Status: Acute Assessment and Plan: Chronic -continue with losartan 50 mg daily and metoprolol 50 mg daily if map is greater than 60. Hold metoprolol if heart rate less than 50. - blood pressures reviewed and remain stable, continue to monitor (4) Atrial fibrillation: Code(s): I48.91 - Unspecified atrial fibrillation Status: Acute Assessment and Plan: - paroxysmal AFib, she is currently in sinus rhythm. Occasionally sinus tachycardia likely related to acute infection - continue with Eliquis - continue with metoprolol if blood pressure allows and hold if map less than 60 and are pulse is less than 50. (5) COPD (chronic obstructive pulmonary disease): Code(s): J44.9 - Chronic obstructive pulmonary disease, unspecified Status: Acute Assessment and Plan: -the patient chronically wears oxygen at 2 L per nasal cannula. - albuterol inhaler held and started nebs p.r.n.. (6) Obstructive sleep apnea: Code(s): G47.33 - Obstructive sleep apnea (adult) (pediatric) Status: Acute Assessment and Plan: -continue to auto titrate CPAP. (7) Acute and chronic respiratory failure, unspecified whether with hypoxia or hypercapnia: Code(s): J96.20 - Acute and chronic respiratory failure, unspecified whether with hypoxia or hypercapnia Status: Acute Assessment and Plan: -the patient is chronically on oxygen to 2 L. She has compensated hypercapnia. (8) Marijuana abuse: Code(s): F12.10 - Cannabis abuse, uncomplicated Status: Acute Assessment and Plan: -she recently was counseled on this by pulmonology. (9) Depression: Code(s): F32.A - Depression, unspecified Status: Acute Assessment and Plan: -continue with venlafaxine Medical Record Review I have reviewed the following patient records and this information was taken into consideration when formulating the assessment and plan.: previous ER visits and previous hospitalizations Time Spent With Patient Time with patient: 25 - 35 minutes Subjective Date/time seen: 02/19/25 0900 Interval history: 64 year old female with past medical history of COPD on chronic oxygen of 2L NC, atrial fibrillation on eliquis, CAD, PAD, and hypertension presents to the hospital for a positive urine infection test at home. Patient is pleasant lying comfortably in bed. She is currently working with PT/OT. She continues to endorse pain with urination but otherwise denies any UTI like symptoms including burning sensation, hematuria, odor. She has no complaints denies chest pain, palpitations, shortness of breath, nausea/vomiting, and abdominal pain. She is currently on oxygen 2 l, that is her baseline. Review of Systems Review of Systems: All systems reviewed & are unremarkable except as noted in HPI and below Constitutional: Constitutional: Reports as per HPI and Reports no additional constitutional complaints Eyes: Eyes: Reports as per HPI and Reports no additional eye complaints ENT: Reports system reviewed and no additional complaints, except as documented and Reports Normal hearing present Cardiovascular: Cardiovascular: Reports no additional cardiovascular complaints Respiratory: Respiratory: Reports as per HPI and Reports no additional respiratory complaints Gastrointestinal: Gastrointestinal: Reports as per HPI and Reports no additional gastrointestinal complaints Genitourinary: Genitourinary: Reports no additional female genitourinary complaints Musculoskeletal: Musculoskeletal: Reports no additional musculoskeletal complaints Integumentary/Breasts: Skin/Breast: Reports system reviewed and no additional complaints, except as docu Neurologic: Reports system reviewed and no additional complaints, except as documented and Reports Normal hearing present Psychiatric: Psychiatric: Reports no additional psychiatric complaints and Reports as per HPI Hematologic/Lymphatic: Hematologic/Lymphatic: Reports no additional hematologic/lymphatic complaints Allergic/Immunologic: Allergic/Immunologic: Reports no additional allergic/immunologic complaints Exam Narrative: General: female in no acute respiratory distress who is nontoxic appearing, lying semi recumbent in bed. HEENT: Normocephalic. Atraumatic. Extraocular movement intact. Sclera clear and anicteric. No facial asymmetry. Chest: Lungs are clear to auscultation bilaterally. No wheezes or crackles. CV: Heart was regular rhythm, tachycardic. Abd: Abdomen was soft. Nontender. Nondistended. Positive bowel sounds. No organomegaly or masses. Ext: No clubbing, cyanosis, or edema. DP pulses bilaterally. Neuro: Patient is alert and oriented x4. Speech is clear. Const: General: cooperative, comfortable, no acute distress, well developed, awake, Physically active, average body habitus and well nourished Nutritional Appearance: average body habitus and well nourished Orientation/consciousness: oriented to person, oriented to place, oriented to time and patient oriented x3 Limitations: no limitations HENMT: Head: normal to inspection, No palpable skull fracture present, normocephalic, atraumatic and abrasion Ears: hearing grossly normal bilaterally Eyes: General: appearance normal, both eyes and all related structures Alignment and Position: alignment normal Periorbital: periorbital findings normal Eyelids: eyelids normal Pupils: Equal, round and reactive pupils p resent Neck: Neck: normal visual inspection and full ROM Chest: Chest palpation & inspection: normal inspection of the chest Resp: Effort & Inspection: normal respiratory effort Auscultation: wheezes lower bilaterally Cardio: Palpation: normal PMI Rate: regular rate Rhythm: regular rhythm Heart sounds: S1 normal heart sound present and S2 normal heart sound present Peripheral pulses: Peripheral pulses 2+ throughout Skin: General skin exam: normal color Lesions: no lesions Rashes: no rashes Trauma: no lacerations or abrasions Wounds: no wounds Hair: normal Nails: normal Neuro: General: oriented to person, oriented to place, oriented to time and patient oriented x3 Cranial nerves: Yes Equal, round and reactive pupils present and Yes Normal hearing present Extrem: General: normal to inspection Right upper extremity: normal to inspection and shoulder/upper arm Left upper extremity: normal to inspection and shoulder/upper arm Right lower extremity: normal to inspection Left lower extremity: normal to inspection Psych: Appearance: grossly normal Mental Status: mental status grossly normal Speech and movement: Normal speech and movement present Affect: normal affect Attitude: cooperative Thought process: Normal thought process present Insight: Good insight present (Psych) Judgement: Good judgement present (Psych) Objective Data Vital Signs Vital Signs: Vital Signs - 24 hr 02/18/25 16:00 02/18/25 16:08 02/18/25 20:00 Temperature 97.4 F L Pulse Rate 106 H 106 H 66 Respiratory Rate 18 20 Blood Pressure 104/60 Pulse Oximetry 97 Oxygen Delivery Oxygen Flow Rate Fraction of Inspired Oxygen 02/18/25 20:00 02/18/25 20:04 02/18/25 20:12 Temperature Pulse Rate 97 66 70 Respiratory Rate 20 20 Blood Pressure Pulse Oximetry 96 Oxygen Delivery Nasal Cannula Oxygen Flow Rate 2 Fraction of Inspired Oxygen 28 02/18/25 20:59 02/19/25 00:00 02/19/25 01:12 Temperature 97.6 F Pulse Rate 98 101 H 102 H Respiratory Rate 18 20 Blood Pressure 108/54 L Pulse Oximetry 96 Oxygen Delivery Oxygen Flow Rate Fraction of Inspired Oxygen 02/19/25 01:26 02/19/25 04:00 02/19/25 04:37 Temperature 97.6 F Pulse Rate 95 121 H 60 Respiratory Rate 20 18 Blood Pressure 103/50 L Pulse Oximetry 90 Oxygen Delivery Oxygen Flow Rate Fraction of Inspired Oxygen 02/19/25 08:00 02/19/25 08:00 02/19/25 08:53 Temperature Pulse Rate 102 H Respiratory Rate Blood Pressure Pulse Oximetry 98 98 Oxygen Delivery Nasal Cannula Nasal Cannula Oxygen Flow Rate 2 2 Fraction of Inspired Oxygen 02/19/25 08:53 02/19/25 09:00 02/19/25 09:19 Temperature Pulse Rate 96 104 H 105 H Respiratory Rate 20 20 Blood Pressure 121/66 Pulse Oximetry Oxygen Delivery Oxygen Flow Rate Fraction of Inspired Oxygen 02/19/25 09:19 02/19/25 10:52 02/19/25 12:00 Temperature Pulse Rate 105 H 97 Respiratory Rate Blood Pressure Pulse Oximetry Oxygen Delivery Nasal Cannula Oxygen Flow Rate 2 Fraction of Inspired Oxygen 02/19/25 13:19 02/19/25 13:32 Temperature Pulse Rate 108 H 109 H Respiratory Rate 20 20 Blood Pressure Pulse Oximetry Oxygen Delivery Oxygen Flow Rate Fraction of Inspired Oxygen Intake/Output Intake/Output: Intake & Output 02/16/25 02/17/25 02/18/25 02/19/25 23:59 23:59 23:59 23:59 Intake Total 1000 1310 1660 1480 Balance 1000 1310 1660 1480 Meds/Results Medications: Active Medications Generic Name Dose Route Start Last Admin Trade Name Freq PRN Reason Stop Dose Admin Acetaminophen 650 mg 02/16/25 22:29 02/17/25 00:34 Acetaminophen 325 Mg Tablet PO 650 mg Q4H PRN Administration Mild Pain (1-3) or Fever Albuterol 2.5 mg 02/17/25 04:20 Albuterol Sulfate Neb 2.5 Mg/3 Ml Inh INHALATION Q4HRT PRN Shortness Of Breath Albuterol/Ipratropium 3 ml 02/17/25 02:00 02/19/25 13:19 Ipratropium 0.5 Mg/Albuterol Sulfate 2.5 Mg (Base) Ampul.Neb 3 Ml INHALATION 3 ml Q6HRT JIHAN Administration Apixaban 5 mg 02/17/25 09:00 02/19/25 09:19 Apixaban 5 Mg Tablet PO 5 mg Q12HR JIHAN Administration Atorvastatin Calcium 80 mg 02/17/25 21:00 02/18/25 20:08 Atorvastatin 40 Mg Tablet PO 80 mg HS JIHAN Administration Gabapentin 300 mg 02/17/25 09:00 02/19/25 12:21 Gabapentin 300 Mg Capsule PO 300 mg TID JIHAN Administration Ceftriaxone Sodium 1 gm/ 50 mls @ 100 mls/hr 02/17/25 22:00 02/18/25 21:30 Sodium Chloride IVPB Infused Q24H JIHAN Infusion Losartan Potassium 50 mg 02/17/25 09:00 02/19/25 09:19 Losartan Potassium 50 Mg Tablet PO 50 mg DAILY JIHAN Administration Metoprolol Succinate 50 mg 02/17/25 09:00 02/19/25 09:19 Metoprolol Succinate Ext Rel 50 Mg Tabcr PO 50 mg DAILY JIHAN Administration Ondansetron HCl 4 mg 02/16/25 22:29 02/18/25 01:06 Ondansetron Inj 4 Mg/2 Ml Vial IV PUSH 4 mg Q4H PRN Administration Nausea Fluticasone/Salmeterol 2 puff 02/17/25 08:00 02/19/25 08:51 Fluticasone/Salmeterol 115-21 Mcg Inhaler 1 Puff INHALATION 2 puff Q12HRT JIHAN Administration Venlafaxine HCl 37.5 mg 02/17/25 08:00 02/19/25 09:20 Venlafaxine Hcl 37.5 Mg Tablet PO 37.5 mg BIDWM JIHAN Administration Radiology Results: ITS Impressions Chest X-Ray 02/17/25 08:03 IMPRESSION: 1. No acute cardiopulmonary findings given portable technique. Labs Labs: Laboratory Results - last 24 hr 02/19/25 04:42 WBC 8.0 RBC 3.24 L Hgb 9.0 L Hct 31.9 L MCV 98.5 MCH 27.8 MCHC 28.2 L RDW 12.9 Plt Count 233 MPV 9.0 Sodium 139 Potassium 4.5 Chloride 96 L Carbon Dioxide > 40 H Anion Gap BUN 13 Creatinine 0.56 L Estim Creat Clear Calc 62 Estimated GFR > 60 Glucose 141 H Lactic Acid 0.8 Calcium 8.6 Quality VTE Prophylaxis VTE prophylaxis: pharmacologic ordered
[2025-02-19] MEDS: BENZOCAINE/MENTHOL (*BKC) 18 EA LOZENGE 1 LOZENGE PO (15:31)
[2025-02-19] MEDS: ATORVASTATIN 40 MG TABLET 80 MG PO (20:51)
[2025-02-19] MEDS: cefTRIAXone 1 GM in SODIUM CHLORIDE 0.9% IV 50 ML 100 ML IVPB (20:55)
[2025-02-20] VITALS (12 sets, daily range): BP systolic 126; BP diastolic 67; PULSE 91–110; RESP 16–20; TEMP 36.6–36.7; O2SAT 93–100
[2025-02-20] MEDS: IPRATROPIUM 0.5 MG/ALBUTEROL SULFATE 2.5 MG (BASE) AMPUL.NEB 3 ML INHALATION ×2 (02:26→08:50)
[2025-02-20] MEDS: FLUTICASONE/SALMETEROL 115-21 MCG INHALER 1 PUFF 2 PUFF INHALATION (08:56)
[2025-02-20] MEDS: GABAPENTIN 300 MG CAPSULE PO ×2 (09:58→13:09)
[2025-02-20] MEDS: LOSARTAN POTASSIUM 50 MG TABLET PO (09:59)
[2025-02-20] MEDS: METOPROLOL SUCCINATE EXT REL 50 MG TABCR PO (09:59)
[2025-02-20] MEDS: VENLAFAXINE HCL 37.5 MG TABLET PO (09:59)
[2025-02-20] MEDS: APIXABAN 5 MG TABLET PO (09:59)
--- NOTE | 2025-02-20 13:09 | P.DS_ITS ---
DS: Admitting Diagnosis Discharge Date 02/20 Admitting Diagnosis uti DS: Discharge Diagnosis Discharge Diagnosis (1) Sepsis: Code(s): A41.9 - Sepsis, unspecified organism Status: Acute (2) UTI (urinary tract infection): Code(s): N39.0 - Urinary tract infection, site not specified Status: Acute (3) Hypertension: Qualifiers: Hypertension type: primary hypertension Qualified Code(s): I10 - Essential (primary) hypertension Code(s): I10 - Essential (primary) hypertension Status: Acute (4) Atrial fibrillation: Code(s): I48.91 - Unspecified atrial fibrillation Status: Acute (5) COPD (chronic obstructive pulmonary disease): Code(s): J44.9 - Chronic obstructive pulmonary disease, unspecified Status: Acute (6) Obstructive sleep apnea: Code(s): G47.33 - Obstructive sleep apnea (adult) (pediatric) Status: Acute (7) Acute and chronic respiratory failure, unspecified whether with hypoxia or hypercapnia: Code(s): J96.20 - Acute and chronic respiratory failure, unspecified whether with hypoxia or hypercapnia Status: Acute (8) Marijuana abuse: Code(s): F12.10 - Cannabis abuse, uncomplicated Status: Acute Assessment and Plan: - (9) Depression: Code(s): F32.A - Depression, unspecified Status: Acute DS: Summary Hospital Course Hospital Course: 64 year old female with past medical history of COPD on chronic oxygen of 2L NC, atrial fibrillation on eliquis, CAD, PAD, and hypertension presents to the hospital for a positive urine infection test at home. # Sepsis: Meets SIRS criteria: tachycardia, leukocytosis - lactic acid WNL - Receieved 1L NS in the ED, will give additional 1L NS @ 100 ml/hr and monitor volume status given hx of diastolic dysfunction - suspected source: UTI - blood cultures drawn on 02/16: prelim negative - CXR unremarkable - #UTI (urinary tract infection): - UA: turbid appearance with 2+ protein, 3+ blood, positive nitrates, 3+ leukocytes, >100 RBC, > 100 WBC, 4+ bacteria - UC obtained on 02/16: pending - No previous micro to be reviewed - started on Rocephin on 02/17 downgrade dto PO; cefpodoxine 100 mg q12h needs two more doses to compelte the coourse Continues to endorse dysuria wbc downtrending- return to normal # Hypertension: Chronic -continue with losartan 50 mg daily and metoprolol 50 mg daily if map is greater than 60. Hold metoprolol if heart rate less than 50. - blood pressures reviewed and remain stable- no changes # Atrial fibrillation: - paroxysmal AFib, she is currently in sinus rhythm. Occasionally sinus tachycardia likely related to acute infection - continue with Eliquis - continue with metoprolol if blood pressure allows and hold if map less than 60 and are pulse is less than 50. # COPD (chronic obstructive pulmonary disease): -the patient chronically wears oxygen at 2 L per nasal cannula. - albuterol inhaler held and started nebs p.r.n.. # Obstructive sleep apnea: -continue to auto titrate CPAP. # Acute and chronic respiratory failure, unspecified whether with hypoxia or hypercapnia: -the patient is chronically on oxygen to 2 L. She has compensated hypercapnia. # Marijuana abuse: -she recently was counseled on this by pulmonology. # Depression: -continue with venlafaxine NOted hg downtrending. Pt denies feeling lightheaded, dizzy. No blood in urine and stool, no acute issues. Will order repeat cbc as an outpt and will advise a clsoe f/u with pcp once labs are done Status at Discharge Functional status at discharge: independent ambulation Overall status at discharge: patient is progressing back to baseline Time Spent with Patient Time attestation: Total time spent providing and/or coordinating discharge services: Time spent: Greater than 30 minutes Exam Narrative: General: female in no acute respiratory distress who is nontoxic appearing, lying semi recumbent in bed. back to her baseline today HEENT: Normocephalic. Atraumatic. Extraocular movement intact. Sclera clear and anicteric. No facial asymmetry. Chest: Lungs are clear to auscultation bilaterally. No wheezes or crackles. CV: Heart was regular rhythm, tachycardic. Abd: Abdomen was soft. Nontender. Nondistended. Positive bowel sounds. No organomegaly or masses. Ext: No clubbing, cyanosis, or edema. DP pulses bilaterally. Neuro: Patient is alert and oriented x4. Speech is clear. Const: General: cooperative, comfortable, no acute distress, well developed, awake, Physically active, average body habitus and well nourished Nutritional Appearance: average body habitus and well nourished Orientation/consciousness: oriented to person, oriented to place, oriented to time and patient oriented x3 Limitations: no limitations HENMT: Head: normal to inspection, No palpable skull fracture present, normocephalic, atraumatic and abrasion Ears: hearing grossly normal bilaterally Eyes: General: appearance normal, both eyes and all related structures Alignment and Position: alignment normal Periorbital: periorbital findings normal Eyelids: eyelids normal Pupils: Equal, round and reactive pupils present Neck: Neck: normal visual inspection and full ROM Chest: Chest palpation & inspection: normal inspection of the chest Resp: Effort & Inspection: normal respiratory effort Auscultation: wheezes lower bilaterally Cardio: Palpation: normal PMI Rate: regular rate Rhythm: regular rhythm Heart sounds: S1 normal heart sound present and S2 normal heart sound present Peripheral pulses: Peripheral pulses 2+ throughout Skin: General skin exam: normal color Lesions: no lesions Rashes: no rashes Trauma: no lacerations or abrasions Wounds: no wounds Hair: normal Nails: normal Neuro: General: oriented to person, oriented to place, oriented to time and patient oriented x3 Cranial nerves: Yes Equal, round and reactive pupils present and Yes Normal hearing present Extrem: General: normal to inspection Right upper extremity: normal to inspection and shoulder/upper arm Left upper extremity: normal to inspection and shoulder/upper arm Right lower extremity: normal to inspection Left lower extremity: normal to inspection Psych: Appearance: grossly normal Mental Status: mental status grossly normal Speech and movement: Normal speech and movement present Affect: normal affect Attitude: cooperative Thought process: Normal thought process present Insight: Good insight present (Psych) Judgement: Good judgement present (Psych) DS: Data Data Completed and Pending Labs on day of discharge: Preliminary micro results at discharge 02/16/25 23:07 Blood Culture - Preliminary Blood 02/16/25 22:42 Blood Culture - Preliminary Blood Discharge Plan Discharge Attending physician on discharge: Flavio Greco Consulting providers: Jaclyn Albarran Discharging Clinician: Cathy Rosales Patient Disposition: Home with Home Health Service Activity: may shower Diet: heart healthy Discharge Instructions: Please take cefpodoxine 100 mg every 12 you will need a total of two more doses to complete the course As we discussed, please have labs repeated to ensure hemiglobin is improving, If you noticed any blood in urine or stool, come to ED Care Coordination: Patient to have [facility] for PT/OT eval and treat, and penitentiary. Their phone number is [phone], if you have any questions. They will contact you to schedule their visits. Patient Instructions: Antibiotic Form, Apixaban (By mouth), Heart Failure (DC) Patient Language: British Stand Alone Forms: General Discharge Information Follow-up/Referrals: MarianaPiyush M.D. [Primary Care Provider] - 2 Weeks Discharge Medications: New cefpodoxime 100 mg Tablet 100 mg PO Q12HR Qty: 2 0RF Continued budesonide-formoterol [Symbicort] 160-4.5 mcg/actuation HFA aerosol inhaler 2 puff inhalation Q12H metoprolol succinate 50 mg tablet extended release 24 hr 50 mg PO DAILY venlafaxine 37.5 mg tablet 37.5 mg PO BID gabapentin 300 mg capsule 300 mg PO TID albuterol sulfate 90 mcg/actuation HFA aerosol inhaler 2 puff INHALATION Q6H PRN (Reason: sob) Eliquis 5 mg tablet 5 mg PO BID losartan 50 mg tablet 50 mg PO DAILY atorvastatin 80 mg tablet 80 mg PO HS Date of admission: 02/16/25 22:29 Primary Care Provider: MarianaPiyush Admitting Provider: Charanjit Lugo Attending physician on admission: Charanjit Lugo Condition: Stable Quality VTE Prophylaxis VTE prophylaxis: pharmacologic ordered Hospitalist MIPS Heart Failure (Exclusion) Patient has history of Heart Transplant or Left Ventricular Assistive Device?: No IF YES, STOP HERE Heart Failure (Qualifier) Patient has current or prior documentation of LVEF less than or equal to 40%, or mod/servere depressed LVSF?: No IF NO, STOP HERE
== END 2025-02-20 14:40 | disposition home health service (06) ==
LOC: ANHED 22:22 → ANH2MED 02-17 00:36
PROVIDERS: Nurse Practitioner; Admitting Provider Internal Medicine; Emergency Provider Emergency Medicine; PCP Internal Medicine; Visit Provider Family Medicine
DX: N39.0 Urinary tract infection, site not specified (principal); B96.20 Unspecified Escherichia coli [E. coli] as the cause of diseases classified elsewhere; A41.9 Sepsis, unspecified organism; J44.9 Chronic obstructive pulmonary disease, unspecified; I10 Essential (primary) hypertension; I48.91 Unspecified atrial fibrillation; J96.22 Acute and chronic respiratory failure with hypercapnia; I73.9 Peripheral vascular disease, unspecified; I25.10 Atherosclerotic heart disease of native coronary artery without angina pectoris; E78.5 Hyperlipidemia, unspecified; E43 Unspecified severe protein-calorie malnutrition; Z68.1 Body mass index [BMI] 19.9 or less, adult; F17.210 Nicotine dependence, cigarettes, uncomplicated; G47.33 Obstructive sleep apnea (adult) (pediatric); F32.A Depression, unspecified; Z79.01 Long term (current) use of anticoagulants; Z20.822 Contact with and (suspected) exposure to COVID-19; Z95.820 Peripheral vascular angioplasty status with implants and grafts; Z99.81 Dependence on supplemental oxygen; Z99.89 Dependence on other enabling machines and devices; Z82.49 Family history of ischemic heart disease and other diseases of the circulatory system; Z80.8 Family history of malignant neoplasm of other organs or systems
CPT/HCPCS: 36415; 36600; 71045; 80048; 80053; 81001; 82805; 83605; 83690; 83735; 83880; 84145; 84484; 85018; 85025; 85027; 85610; 85730; 87040; 87086; 87186; 87637; 93005; 94640; 96361; 96365; 97110; 97116; 97161; 97165; 99285; A9270; G0378; G0379; J0696; J2405; J7030

== ENCOUNTER 2025-03-01 11:34 | Outpatient (CLI) | payer OTHER, SELFPAY ==
[2025-03-01 12:08] LABS: Hematocrit 38.0 % (37.0-47.0); Hemoglobin 10.9 g/dL (12.0-15.0); Mean Corpuscular HGB Conc 28.7 g/dl (32-36); Mean Corpuscular Hemoglobin 28.9 pg (26-34); Mean Corpuscular Volume 100.8 fl (80-100); Platelet Count Result 239 k/mm3 (150-375); Red Blood Count 3.77 M/mm3 (4.2-5.4); White Blood Count 8.1 K/mm3 (4.5-10.0)
== END 2025-03-01 11:35 | disposition home or self-care (01) ==
LOC: ANHLAB 11:36
PROVIDERS: PCP Internal Medicine; Visit Provider Nurse Practitioner
DX: D64.9 Anemia, unspecified (principal)
CPT/HCPCS: 36415; 85027

== ENCOUNTER 2025-03-08 10:58 | Inpatient (IN) | payer OTHER, SELFPAY ==
[2025-03-08] VITALS (9 sets, daily range): BP systolic 135–155; BP diastolic 46–80; PULSE 96–153; RESP 16–30; TEMP 36.5–36.7; O2SAT 96–100; BMI 16.9
--- NOTE | ~2025-03-08 | CT_ITS ---
EXAMINATION: CTA chest PE protocol DATE: 03/08/2025 14:25 INDICATION: Shortness of breath. History of COPD, congestive heart failure. TECHNIQUE: Computed tomography angiography (CTA) of the chest was performed with 100 mL Omnipaque-350 intravenous contrast timed to evaluate the pulmonary arteries. Coronal maximum intensity projection 3D-reconstructions were created by the technologist. Automated exposure control and iterative reconstruction technique were employed. The dose-length product was 164.83 mGy-cm. COMPARISON: Chest x-ray dated 03/08/2025 FINDINGS: Severe, holden acinar emphysematous changes of lungs. No acute pulmonary findings. No evidence of pulmonary emboli. Thoracic aorta shows significant atherosclerotic changes without acute findings. Nonfunctioning vascular graft is noted in place over the chest wall on the right side. IMPRESSION: 1. Severe emphysematous changes of lungs. No evidence of pulmonary emboli. Severe atherosclerotic changes of thoracic aorta. Reviewed, dictated and finalized at location T. ER TRIPPER IMPRESSION: 1. Severe emphysematous changes of lungs. No evidence of pulmonary emboli. Madhavi re atherosclerotic changes of thoracic aorta.
--- NOTE | ~2025-03-08 | XR_ITS ---
Examination: XR chest 1V portable Clinical History: sob/HX OF COPD AND CHF Comparison: 02/16/2025 Technique: Portable AP Findings: Heart size normal. Lungs clear. Hyperinflation. No acute bony abnormality. Bilateral breast calcifications as before. IMPRESSION: 1. No acute cardiopulmonary findings given portable technique. Reviewed, dictated and finalized at location R. NG SECTION CHIEF
--- NOTE | 2025-03-08 11:12 | ECG_ITS ---
Test Date: 2025-03-08 11:22:09 Measurements Intervals [place] Rate: 131 P: 81 NJ: 104 QRS: 89 QRSD: 89 T: 73 QT: 374 QTc: 553 Interpretive Statements SINUS TACHYCARDIA NONSPECIFIC T-WAVE ABNORMALITY BASELINE ARTIFACT- I, II, III, AVL, V1-V2 ABNORMAL ECG Compared to ECG 02/16/2025 20:28:43 NO SIGNIFICANT CHANGE Electronically Signed On 03-08-2025 17:30:27 [employer] by Greg Vargas D.O.
[2025-03-08 11:37] LABS: Hematocrit 37.2 % (37.0-47.0); Hemoglobin 11.1 g/dL (12.0-15.0); Immature Granulocyte Percent A 0.2 % (0-0.5); Lymphocytes Absolute Auto 1.24 K/mm3 (0.9-3.2); Mean Corpuscular HGB Conc 29.8 g/dl (32-36); Mean Corpuscular Hemoglobin 28.9 pg (26-34); Mean Corpuscular Volume 96.9 fl (80-100); Nucleated Red Blood Cells Absolute Auto 0.000 K/mm3 (0.0-0.012); Nucleated Red Blood Cells Perc 0.0 % (0.0-0.2); Platelet Count Result 166 k/mm3 (150-375); Red Blood Count 3.84 M/mm3 (4.2-5.4); White Blood Count 8.0 K/mm3 (4.5-10.0)
--- OUTSIDE RECORDS SUMMARY | 2025-03-08 11:50 | XMS_ITS | Data Portability ---
Author Organization [place] - [facility] [employer], Main Office Address [address] [place] [address] Assessment Encounter Date Assessment Date Assessment LastModified [...] itrypsin (aat) phenotype, serum [email or web address] [place] [address] (Lab), [address] [place], [address], 10:39:55 BNP (B-type natriuretic peptide), serum or plasma 2024 025 [facility] (Lab), [address] [place], [address], 17:55:33 ige, total, serum [address] (Lab), [address] [place], [address], 5 10:39:55 tb (M tuberculosi s), ifn-gamma samantha, blood [address] (Lab), [address] [place], [address], 5 10:39:55 igg subclasses 1+2+3+4, serum [address] (Lab), [address] [place], [address], 5 10:39:55 respiratory allergen panel, [facility] A, serum [address] (Lab), [address] [place], [address], 5 10:39:56 respiratory allergen panel - [facility] b [address] (Lab), [address] [place], [address], 5 10:39:56 eosinophils , quant, blood [address] (Lab), [address] [place], [address], 5 10:39:56 Referral None recorded. Procedures None recorded. Surgeries None recorded. Imaging CT, chest, w/o contrast 2024 025 [email or web address] [facility] ([facility]), [address] [place], [address], 5 12:08:11 Medication Orders Breztri Aerosphere 160 mcg-9mcg-4. 8mcg/actuat ion HFA aerosol inhaler 2024 025 [facility][id number], [address], [place], [place], [id number], 15:45:04 Breztri Aerosphere 160 mcg-9mcg-4. 8mcg/actuat ion HFA aerosol inhaler 2024 025 [facility] #[id number], [address], [place], [place], [id number], 12:11:49 albuterol sulfate HFA 90 mcg/actuati on aerosol inhaler 2024 025 [facility] #[id number], [address], [place], [place], [id number], 12:11:50 Patient TargetsNo targets recorded. Patient Instructions Encounter Date Encounter Id Patient Instructions Last Modified By Organization Details Last Modified Time 06/03/2024 [id number] 6 minute walk test* АННА Not available 06/11/2024 10:11:26 complete PFT w/ post bronchodilator spirometry* [email or web address] Not available 07/09/2024 17:01:40 Reason for Referral None Reported. Results Created Date Observation Date Name Description Value Unit Range Abnormal Flag Note LastModifiedBy Organization Detail LastModifiedTime 06/26/1906/25/2024 CT, chest , w/o contr ast No observ ation record ed. [email or web address] [facility] [address] [place], [address], 06/27/2024 15:30:35 07/18/1907/16/2024 six minut e walk test* No observ ation record ed. [facility] ([facility]) [address] [place], [address], 07/18/2024 16:32:53 04/07/16/2024 pre/p ost bron hodil [...] Recorded Time Severe chronic obstructive pulmonary disease 763362082 Active 2024 Conor Palmer MD [address], [place], [address], [facility] 19:47:42 Chronic obstructive pulmonary disease 34245040 Active 2024 Luz Sheth NP [address], [address], [place], [address], [facility] 15:44:26 Acute hypoxemic and hypercapnic respiratory failure 922866308 Active 2024 Luz Sheth NP [address], [address], [place], [address], [facility] 16:16:20 Chronic hypoxemic respiratory failure 637378685 Active 2024 Luz Sheth NP [address] [facility], [address], [place], [address], [facility] [employer] [facility] 5 15:10:34 Notes:Medical History: CVA D [...] Name and Address Organization Details Recorded Time 99765 Product containin g penicilli n (product) medicatio n itching severe Not available 05/18/2022 06045 8001 SNOMED Not Available [facility] 3 16:29:05 Medications Name Sig Start Date [...] Address Organization Details Last Updated DateTime 5 72540.0 5 g 14.9 kg/m2 172.72 cm 98.2 [degF] 95 /min 90 % 3 L/min 124/70 mm[Hg] IGNACIO [place] - S ID [employer] [facility] 5 11:46:28 Date Recorded Body height Body mass index (BMI) Body weight Body temperature Heart rate Oxygen saturation Inhaled oxygen flow rate Systolic And Diastolic Provider Name and Address Organization Details Last Updated DateTime 172.72 cm 15.7 kg/m2 92125.0 1 g 97.6 [degF] 103 /min 88 % 3 L/min 106/64 mm[Hg] Griselda Peralta MA [facility] 15:30:53 Social History Question Answer Notes LastModified by Organizat ion Details LastModified Time Tobacco Smoking Status Former Smoker Griselda Peralta MA null, [facility] 06/03/2024 11:41:19 What Is Your Level Of [...] anxious, or unable to sleep at night)? [id number] Information not available 06/03/2024 Family History Relationship Description Onset Age of this Age Resolved Age Notes LastModified by Organization Details LastModified Time Mother Hypertensive disorder [id number] Not available 05/18/2022 16:27:15 Medical History No medical history recorded. Gynecological HistoryNo gynecological history recorded. Obstetrics History GPAL:G 0 P 0 0 0 0 Immunizations Vaccine Type Date Status Note Provider Nam e and Address Organization Details Recorded Time pneumococcal polysaccharide PPV23 5 completed Luz Sheth NP [address] [facility] [address], [place], [address], [facility] [employer] [facility] [employer] [facility] 08/01/2024 09:17:45 Past Encounters Encounter ID Performer Location Encounter Start Date Encounter Closed Date Diagnosis/Indication Diagnosis SNOMED-CT Code Diagnosis ICD10 Code Diagnosis IMO Codes Diagnosis Note [id number] Luz Sheth NP [facility] Pul[facility]olo [facility] [place] [address] [facility] [address] [place] [address] 06/03/2024 11:20:45 06/07/2024 15:00:01 Chronic obstructive pulmonary disease 76015499 J44.9 Review of hx shows COPD-O2 dependence [...] ed x 2 past yearSon will consider [facility] for follow-up respirator y care Dyspnea on exertion 6084 5006 R06.09 Lab work todayCAT-3 2Mmrc-4PFT for baselineAw are to use Albuterol inhaler as needed-ok to use when sobPatient is very weak and noted sob with sitting-so n notes confusion at timesfollo w-up once testing is complete-s ooner for any changes in breathing and increase use of inhaler Multiple n odules of lung 852131714 R91.[address] due to hz of nodules-if able to get old records showing a recent CT will consider Dc of order Dependence on supplemental oxygen 4337774334 07 Z99.81 Patient sits at 90% at 3L NC resting-re sp rate of 24 [id number] Luz Sheth NP [facility] Pulmonolo gy [address] [address] 07/31/2024 15:16:31 08/20/2024 07:06:38 Chronic obstructive pulmonary disease 67178691 J44.9 PFT 07/15/24 FEV1 0.29 L (11%), [...] until rx filled Pneumococc al vaccination given 312168840 Z23 [id number] Dependence on supplemental oxygen 5955292301 07 Z99.81 637296 Patient sits at 88-90% at 3L NC resting-re sp rate of 24 at rest Chronic hy poxemic respiratory failure 786102047 J96.11 [id number] Rx for non-invasi ve ventilator through IV [...] Cabrera Member ID Guarantor Name 11/27/2024 1 [facility] ON OR AFTER 09/17/20 (MEDICAID REPLACEMENT - HMO) Carly Oliveira [id number] Carly Oliveira 08/01/2024 1 [facility] PRIOR TO 09/17/2020 (MEDICAID REPLACEMENT - HMO) Carly Oliveira [id number] Carly Oliveira Notes Date Note Type Note [...] as a child Luz Sheth NP [address] [facility], [address], [place], [address], [employer] 06/03/2024 13:26:33 5 text/html COPDReported by PatientHPIFor [...] Sheth NP [address], [address], [place], [address], [facility] 08/01/2024 15:10:48 OBGyn Episode No OBEpisode recorded.
--- OUTSIDE RECORDS SUMMARY | 2025-03-08 11:50 | XMS_ITS | Data Portability ---
Author Organization [facility] Address [address] [place] [address] Care Team Providers Care Tipple Tender Name Role Phone JASEN CARDENAS Primary Care Provider Unavailabl e Assessment No assessment recorded. Plan of Treatment Reminders Order Date Submit Date Provider Last Modified By Organization Details Last Modified Time Details Appointments ANY 2025 01:00P M Sammi Moran MD Not available Not available Not available Lab None recorde d. Referral neurolo gist referra l 2024 025 [facility] At [address] , [address], [place], [address], 12/17/2024 09:48:18 behavio [facility] health referra l 2023 024 АННА Perdomo [facility], [address] [place] [address], [id number], 03/08/2024 15:27:46 home health referra l 2022 023 vinh [facility] [address], [address], [place], [address], 09/05/2023 08:35:45 Procedures None recorde d. Surgeries None recorde d. Imaging None recorde d. Medication Orders Boost Plus 0.06 gram-1. 5 kcal/mL oral liquid 2024 025 [facility], [address] [place], [address], 10/30/2024 17:05:23 ipratro pium 0.5 mg-albu terol 3 mg (2.5 mg base)/3 mL nebuliz ation soln 2024 025 [facility] #[id number], [address], [place], [place], [id number], 10/30/2024 17:02:10 gabapen tin 300 mg capsule 2024 025 [facility] #[id number], [address], [place], [place], [id number], 10/30/2024 17:02:11 Boost Plus 0.06 gram-1. 5 kcal/mL oral liquid 2024 025 [facility], [address], [place], [address], 06/11/2024 18:10:34 Boost High Protein 0.06 gram-1 kcal/mL oral liquid 2023 025 [facility] #[id number], [address], [place], [place], [id number], 10/30/2024 16:35:26 loratad ine 10 mg tablet [address] [place] [address] [facility] #[id number], [address], [place], [place], [id number], 10/30/2024 17:37:46 Symbico rt 160 mcg-4.5 mcg/act uation HFA aerosol inhaler 2023 024 [facility] #[id number], [address], [place], [place], [id number], 08/24/2023 17:38:02 atorvas tatin 80 mg tablet 2023 024 [facility] #54775, [address], [place], [place], [id number], 08/24/2023 17:38:04 Boost High Protein 0.06 gram-1 kcal/mL oral liquid 2023 024 [facility] #[id number], [address], [place], [place], [id number], 10/30/2024 16:30:28 albuter ol sulfate HFA 90 mcg/act uation aerosol inhaler 2023 024 [facility] #95664, [address], [id number], 08/24/2023 17:38:03 ipratro pium 0.5 mg-albu terol 3 mg (2.5 mg base)/3 mL nebuliz ation soln 2023 024 [facility] #65543, [address], [place], [place], [id number], 08/24/2023 17:38:03 Eliquis 5 mg tablet 2023 024 [facility] #24683, [address], [place], [place], [id number], 08/24/2023 17:38:01 losarta n 50 mg tablet 2023 024 [facility] #92559, [address], [place], [place], [id number], 08/24/2023 17:38:03 metopro lol succina te ER 50 mg tablet, extende d release 24 hr 2023 024 [facility] #[id number], [address], [id number], 08/24/2023 17:38:02 venlafa xine 37.5 mg tablet 2023 024 [facility] #[id number], [address], [place], [place], [id number], 08/24/2023 17:38:02 gabapen tin 300 mg capsule 2023 024 [facility] #90962, [address], [place], [place], [id number], 08/24/2023 17:38:00 Eliquis 5 mg tablet 2022 023 [email or web address] [facility] #66507, [address], [place], [place], [id number], 02/22/2023 16:41:27 Boost High Protein 0.06 gram-1 kcal/mL oral liquid 2022 023 [facility] #[id number], [address], [place], [place], [id number], 10/30/2024 16:30:28 Patient TargetsNo targets recorded. Patient Instructions Encounter Date Encounter Id Patient Instructions Last Modified By Organization Details Last Modified Time 08/24/2023 [id number] Peripheral Arterial Disease (PAD): Care Instructions [email or web address] Not available 08/24/2023 17:37:49 learning about high blood sugar [email or web address] Not available 08/24/2023 17:37:49 learning about high blood pressure [email or web address] Not available 08/24/2023 17:37:49 neuropathic pain : care instructions [email or web address] Not available 08/24/2023 17:37:49 02/12/2024 [id number] learning about mood disorders [email or web address] Not available 02/13/2024 10:29:40 eating healthy foods: care instructions [email or web address] Not available 02/12/2024 22:40:58 06/11/2024 [id number] learning about high blood pressure [email or web address] Not available 06/11/2024 18:06:12 Reason for Referral [...] Abnormal Flag Note LastModifiedBy Organization Detail LastModifiedTime 07/23/1907/22/2024 CBC W Auto Diffe renti al panel [...] [presence] in blood by light microscopy Labora tordaljit data interp retati on normal Not Available [...] Not Available 07/26/2024 11:45:14 07/24/19 25 07/22/2024 [facility] ariela Stro[facility] 1999 panel - Serum or Plasm a glucose [mass/volume ] in serum or plasma 224 mg/dL low: 70mg/d Lhigh: 99mg/d L high Not Available Not Available 07/26/2024 11:45:14 07/24/19 25 07/22/2024 [facility] 1999 panel - Serum or Plasm a urea nitrogen [mass or moles/volume ] in serum or plasma 21 mg/dL low: 8mg/dL high: 19mg/d L high Not Available Not Available 07/26/2024 11:45:14 07/24/19 25 07/22/2024 [facility] 1999 panel - Serum or Plasm a creatinine [mass/volume ] in serum or plasma 0.62 mg/dL low: 0.66mg /dLhig h: 1.25mg /dL low Not Available Not Available 07/26/2024 11:45:14 07/24/19 25 07/22/2024 [facility] [place] [address] panel - Serum or Plasm a glomerular filtration rate [volume rate/area] in serum, plasma or blood by based on 1.73 sq M >60 normal Not Available Not Available 11:45:14 07/24/19 25 07/22/2024 [facility] ari[facility] 1999 panel - Serum or Plasm a alkaline phosphatase [enzymatic activity/vol ume] in serum or plasma 69 U/L low: 38U/Lh igh: 126U/L normal Not Available Not Available 07/26/2024 11:45:14 07/24/19 25 07/22/2024 [facility] 1999 panel - Serum or Plasm a alanine aminotransfe rase [enzymatic activity/vol ume] in serum or plasma 27 U/L low: 0U/Lhi gh: 35U/L normal Not Available Not Available 07/26/2024 11:45:14 07/24/19 25 07/22/2024 [facility] ariela [place] [facility] 2000 panel - Serum or Plasm a aspartate aminotransfe rase [enzymatic activity/vol ume] in serum or plasma 36 U/L low: 15U/Lh igh: 37U/L normal Not Available Not Available 07/26/2024 11:45:14 07/24/19 25 07/22/2024 [facility] [place] [facility] 1999 panel - Serum or Plasm a bilirubin.to mikal [mass/volume ] in serum or plasma 0.8 mg/dL low: 0.2mg/ dLhigh : 1.3mg/ dL normal Not Available Not Available 07/26/2024 11:45:14 07/24/19 25 07/22/2024 [facility] [place] [facility] 1999 panel - Serum or Plasm a calcium [mass/volume ] in serum or plasma 9.9 mg/dL low: 8.4mg/ dLhigh : 10.2mg /dL normal Not Available Not Available 07/26/2024 11:45:14 07/24/19 25 07/22/2024 [facility] ariela Stro[place]le [facility] 1999 panel - Serum or Plasm a protein [mass/volume ] in serum or plasma 7.1 g/dL low: 6.3g/d Lhigh: 8.2g/d L normal Not Available Not Available 07/26/2024 11:45:14 07/24/19 25 07/22/2024 [facility] ariela [place]le olic 1999 panel - Serum or Plasm a albumin [mass/volume ] in serum or plasma 4.6 g/dL low: 3g/dLh igh: 4.4g/d L high Not Available Not Available 07/26/2024 11:45:14 07/24/19 25 07/22/2024 [facility] [place]le [facility] 1999 panel - Serum or Plasm a globulin [mass/volume ] in serum 2.5 g/dL low: 2.6g/d Lhigh: 4.2g/d L low Not Available Not Available 07/26/2024 11:45:14 07/24/19 25 07/22/2024 [facility] ariela Stroodle olic 1999 panel - Serum or Plasm a albumin/glob ulin [mass ratio] in serum or plasma 1.8 ratio low: 1ratio high: 2ratio normal Not Available Not Available 07/26/2024 11:45:14 07/24/19 25 07/23/2024 [facility] ari[facility] Stroodle [facility] 1999 panel - Serum or Plasm [...] [presence] in blood by light microscopy Labora tordaljit data interp retati on normal Not Available [...] Not Available 07/26/2024 11:45:14 07/24/19 25 07/23/2024 [facility] 1999 panel - Serum or Plasm a chloride [moles/volum e] in serum or plasma 88 mmol/ L low: 98mmol /Lhigh : 107mmo l/L low Not Available Not Available 07/26/2024 11:45:14 07/24/19 25 07/23/[address] [facility] panel - Serum or Plasm a carbon dioxide, total [moles/volum e] in serum or plasma 42 mmol/ L low: 22mmol /Lhigh : 30mmol /L high Not Available Not Available 07/26/2024 11:45:14 07/24/19 25 07/23/2024 [facility] 1999 panel - Serum or Plasm a anion gap in serum or plasma by calculation 10.5 mmol/ L low: 14mmol /Lhigh : 22mmol /L low Not Available Not Available 07/26/2024 11:45:14 07/24/19 25 07/23/2024 [facility] 1999 panel - Serum or Plasm a glucose [mass/volume ] in serum or plasma 123 mg/dL low: 70mg/d Lhigh: 99mg/d L high Not Available Not Available 07/26/2024 11:45:14 07/24/19 25 07/23/2024 [facility] 1999 panel - Serum or Plasm a urea nitrogen [mass or moles/volume ] in serum or plasma 24 mg/dL low: 8mg/dL high: 19mg/d L high Not Available Not Available 07/26/2024 11:45:14 07/24/19 25 07/23/2024 [place] [id number] panel - Serum or Plasm a creatinine [mass/volume ] in serum or plasma 0.62 mg/dL low: 0.66mg /dLhig h: 1.25mg /dL low Not Available Not Available 07/26/2024 11:45:14 07/24/19 25 07/23/2024 [facility] ariela Stroodle [facility] 1999 panel - Serum or Plasm a glomerular filtration rate [volume rate/area] in serum, plasma or blood by based on 1.73 sq M >60 normal Not Available Not Available 11:45:14 07/24/19 25 07/23/2024 [facility] ariela Strood[facility] 1999 panel - Serum or Plasm a alkaline phosphatase [enzymatic activity/vol ume] in serum or plasma 54 U/L low: 38U/Lh igh: 126U/L normal Not Available Not Available 07/26/2024 11:45:14 07/24/19 25 07/23/2024 [facility] ariela Strood[facility] 1999 panel - Serum or Plasm a alanine aminotransfe rase [enzymatic activity/vol ume] in serum or plasma 24 U/L low: 0U/Lhi gh: 35U/L normal Not Available Not Available 07/26/2024 11:45:14 07/24/19 25 07/23/2024 [facility] ariela Stroodle [facility] 1999 panel - Serum or Plasm a aspartate aminotransfe rase [enzymatic activity/vol ume] in serum or plasma 32 U/L low: 15U/Lh igh: 37U/L normal Not Available Not Available 07/26/2024 11:45:14 07/24/19 25 07/23/2024 [facility] [employer] 1999 panel - Serum or Plasm a bilirubin.to mikal [mass/volume ] in serum or plasma 0.9 mg/dL low: 0.2mg/ dLhigh : 1.3mg/ dL normal Not Available Not Available 07/26/2024 11:45:14 07/24/19 25 07/23/2024 [facility] ariela Stroodle [facility] 1999 panel - Serum or Plasm a calcium [mass/volume ] in serum or plasma 9.7 mg/dL low: 8.4mg/ dLhigh : 10.2mg /dL normal Not Available Not Available 07/26/2024 11:45:14 07/24/19 25 07/23/2024 [facility] ariela Strood[facility] 1999 panel - Serum or Plasm a protein [mass/volume ] in serum or plasma 6.6 g/dL low: 6.3g/d Lhigh: 8.2g/d L normal Not Available Not Available 07/26/2024 11:45:14 07/24/19 25 07/23/2024 [facility] ariela Stroodle [facility] 1999 panel - Serum or Plasm a albumin [mass/volume ] in serum or plasma 4.2 g/dL low: 3g/dLh igh: 4.4g/d L normal Not Available Not Available 07/26/2024 11:45:14 07/24/19 25 07/23/2024 [facility] ariela [facility] 1999 panel - Serum or Plasm a globulin [mass/volume ] in serum 2.4 g/dL low: 2.6g/d Lhigh: 4.2g/d L low Not Available Not Available 07/26/2024 11:45:14 07/24/19 25 07/23/2024 [facility] [place] [facility] 1999 panel - Serum or Plasm [...] Not Available 07/26/2024 11:45:15 07/25/19 25 07/24/2024 [facility] [place] 1999 panel - Serum or Plasm a sodium [moles/volum e] in blood 142 mmol/ L low: 137mmo l/Lhig h: 145mmo l/L normal Not Available Not Available 07/26/2024 11:45:14 07/25/19 25 07/24/2024 [facility] 1999 panel - Serum or Plasm a potassium [moles/volum e] in serum or plasma 3.9 mmol/ L low: 3.5mmo l/Lhig h: 5.1mmo l/L normal Not Available Not Available 07/26/2024 11:45:14 07/25/19 25 07/24/2024 [facility] ariela Stroodle [facility] 1999 panel - Serum or Plasm a chloride [moles/volum e] in serum or plasma 90 mmol/ L low: 98mmol /Lhigh : 107mmo l/L low Not Available Not Available 07/26/2024 11:45:14 07/25/19 25 07/24/2024 [facility] 1999 panel - Serum or Plasm a carbon dioxide, total [moles/volum e] in serum or plasma 43 mmol/ L low: 22mmol /Lhigh : 30mmol /L high Not Available Not Available 07/26/2024 11:45:14 07/25/19 25 07/24/2024 [facility] ariela Stroodle [facility] 1999 panel - Serum or Plasm a anion gap in serum or plasma by calculation 12.9 mmol/ L low: 14mmol /Lhigh : 22mmol /L low Not Available Not Available 07/26/2024 11:45:14 07/25/19 25 07/24/2024 [facility] ariela Stroodle [facility] 1999 panel - Serum or Plasm a glucose [mass/volume ] in serum or plasma 114 mg/dL low: 70mg/d Lhigh: 99mg/d L high Not Available Not Available 07/26/2024 11:45:14 07/25/19 25 07/24/2024 [facility] ariela Stroodle [facility] 1999 panel - Serum or Plasm a urea nitrogen [mass or moles/volume ] in serum or plasma 24 mg/dL low: 8mg/dL high: 19mg/d L high Not Available Not Available 07/26/2024 11:45:14 07/25/19 25 07/24/2024 [facility] ariela Stroodle [facility] 1999 panel - Serum or Plasm a creatinine [mass/volume ] in serum or plasma 0.79 mg/dL low: 0.66mg /dLhig h: 1.25mg /dL normal Not Available Not Available 07/26/2024 11:45:14 07/25/19 25 07/24/2024 [facility] ariela Stroodle [facility] 1999 panel - Serum or Plasm a glomerular filtration rate [volume rate/area] in serum, plasma or blood by based on 1.73 sq M >60 normal Not Available Not Available 11:45:14 07/25/19 25 07/24/2024 [facility] 1999 panel - Serum or Plasm a alkaline phosphatase [enzymatic activity/vol ume] in serum or plasma 49 U/L low: 38U/Lh igh: 126U/L normal Not Available Not Available 07/26/2024 11:45:14 07/25/19 25 07/24/2024 [facility] 1999 panel - Serum or Plasm a alanine aminotransfe rase [enzymatic activity/vol ume] in serum or plasma 23 U/L low: 0U/Lhi gh: 35U/L normal Not Available Not Available 07/26/2024 11:45:14 07/25/19 25 07/24/2024 [facility] 1999 panel - Serum or Plasm a aspartate aminotransfe rase [enzymatic activity/vol ume] in serum or plasma 30 U/L low: 15U/Lh igh: 37U/L normal Not Available Not Available 07/26/2024 11:45:14 07/25/19 25 07/24/2024 [facility] 1999 panel - Serum or Plasm a bilirubin.to mikal [mass/volume ] in serum or plasma 1.1 mg/dL low: 0.2mg/ dLhigh : 1.3mg/ dL normal Not Available Not Available 07/26/2024 11:45:14 07/25/19 25 07/24/2024 [facility] ariela Stroodle [facility] 1999 panel - Serum or Plasm a calcium [mass/volume ] in serum or plasma 9.6 mg/dL low: 8.4mg/ dLhigh : 10.2mg /dL normal Not Available Not Available 07/26/2024 11:45:14 07/25/19 25 07/24/2024 [facility] 1999 panel - Serum or Plasm a [...] 07/25/19 25 07/24/2024 CBC W Auto Diffe heydi al panel [...] normal Not Available Not Available 07/27/19 11:45:14 07/26/1907/25/2024 CBC W Auto Diffe renti al panel [...] normal Not Available Not Available 07/26/2024 11:45:14 07/26/1907/25/2024 CBC W Auto Diffe renti al panel - Blood hemoglobin [mass/volume ] in blood 11.5 g/dL low: 12g/dL high: 15.6g/ dL low Not Available Not Available 07/26/2024 11:45:14 07/26/1907/25/2024 CBC W Auto Diffe renti al panel - Blood hematocrit [volume fraction] of blood by automated count 38.9 % low: 35.7%h igh: 45.7% normal Not Available Not Available 07/26/2024 11:45:14 07/26/1907/25/2024 CBC W Auto Diffe renti al panel - Blood MCV [entitic mean volume] in red blood cells by automated count 100 fL low: 82fLhi gh: 99fL high Not Available Not Available 07/26/2024 11:45:14 07/26/1907/25/2024 CBC W Auto Diffe renti al panel - Blood MCH [entitic mass] by automated count 29.6 pg low: 27pghi gh: 33pg normal Not Available Not Available 07/26/2024 11:45:14 07/26/1907/25/2024 CBC W Auto Diffe renti al panel - Blood MCHC [entitic mass/volume] in red blood cells by automated count 29.6 g/dL low: 31g/dL high: 36g/dL low Not Available Not Available 07/26/2024 11:45:14 07/26/1907/25/2024 CBC W Auto Diffe renti al panel [...] [presence] in blood by light microscopy [facility] data interp retati on normal Not Available Not Available 11:45:14 07/26/19 25 07/25/2024 CBC W Auto Diffe renti al panel - Blood poikilocytos is [presence] in blood by light microscopy Labora tory data interp retati on normal Not Available Not Available 11:45:14 07/26/19 25 07/25/2024 CBC W Auto Diffe renti al panel - Blood hypochromia [presence] in blood by light microscopy [facility] data interp retati on normal Not Available [...] Available 07/26/2024 11:45:15 07/26/19 25 07/25/2024 [facility]pr [facility]ri[facility]lic 1999 panel - Serum [...] Available 07/26/2024 11:45:15 07/26/19 25 07/25/2024 [facility] Stro[facility]le [facility] 1999 panel - Serum or Plasm a anion gap in serum or plasma by calculation 14.9 mmol/ L low: 14mmol /Lhigh : 22mmol /L normal Not Available Not Available 07/26/2024 11:45:15 07/26/19 25 07/25/2024 [facility] ariela Stro[place]le [facility] 1999 panel - Serum or Plasm a glucose [mass/volume ] in serum or plasma 144 mg/dL low: 70mg/d Lhigh: 99mg/d L high Not Available Not Available 07/26/2024 11:45:15 07/26/19 25 07/25/2024 [facility] 1999 panel - Serum or Plasm a urea nitrogen [mass or moles/volume ] in serum or plasma 23 mg/dL low: 8mg/dL high: 19mg/d L high Not Available Not Available 07/26/2024 11:45:15 07/26/19 25 07/25/2024 [facility] 1999 panel - Serum or Plasm a creatinine [mass/volume ] in serum or plasma 0.63 mg/dL low: 0.66mg /dLhig h: 1.25mg /dL low Not Available Not Available 07/26/2024 11:45:15 07/26/19 25 07/25/2024 [facility] 2000 panel - Serum or Plasm a glomerular filtration rate [volume rate/area] in serum, plasma or blood by based on 1.73 sq M >60 normal Not Available Not Available 11:45:15 07/26/19 25 07/25/2024 [facility] ariela Strood[facility] 1999 panel - Serum or Plasm a alkaline phosphatase [enzymatic activity/vol ume] in serum or plasma 43 U/L low: 38U/Lh igh: 126U/L normal Not Available Not Available 07/26/2024 11:45:15 07/26/19 25 07/25/2024 [facility] ariela Strood[facility] 1999 panel - Serum or Plasm a alanine aminotransfe rase [enzymatic activity/vol ume] in serum or plasma 27 U/L low: 0U/Lhi gh: 35U/L normal Not Available Not Available 07/26/2024 11:45:15 07/26/19 25 07/25/2024 [facility] ariela Strood[facility] 1999 panel - Serum or Plasm a aspartate aminotransfe rase [enzymatic activity/vol ume] in serum or plasma 29 U/L low: 15U/Lh igh: 37U/L normal Not Available Not Available 07/26/2024 11:45:15 07/26/19 25 07/25/2024 [facility] ariela Stroodle [facility] 1999 panel - Serum or Plasm a bilirubin.to mikal [mass/volume ] in serum or plasma 0.8 mg/dL low: 0.2mg/ dLhigh : 1.3mg/ dL normal Not Available Not Available 07/26/2024 11:45:15 07/26/19 25 07/25/2024 [facility] ariela Strood[facility] 1999 panel - Serum or Plasm a calcium [mass/volume ] in serum or plasma 9.3 mg/dL low: 8.4mg/ dLhigh : 10.2mg /dL normal Not Available Not Available 07/26/2024 11:45:15 07/26/19 25 07/25/2024 [facility] ariela Strood[facility] 1999 panel - Serum or Plasm a protein [mass/volume ] in serum or plasma 6.1 g/dL low: 6.3g/d Lhigh: 8.2g/d L low Not Available Not Available 07/26/2024 11:45:15 07/26/19 25 07/25/2024 [facility] 1999 panel - Serum or Plasm a albumin [mass/volume ] in serum or plasma 4 g/dL low: 3g/dLh igh: 4.4g/d L normal Not Available Not Available 07/26/2024 11:45:15 07/26/19 25 07/25/[address] [facility] [address] [facility] panel - Serum or Plasm a globulin [mass/volume ] in serum 2.1 g/dL low: 2.6g/d Lhigh: 4.2g/d L low Not Available Not Available 07/26/2024 11:45:15 07/26/19 25 07/25/2024 [facility] 1999 panel - Serum or Plasm a [...] Not Available 07/26/2024 11:45:15 07/27/19 25 07/26/2024 [facility] 1999 panel - Serum or Plasm a sodium [moles/volum e] in blood 142 mmol/ L low: 137mmo l/Lhig h: 145mmo l/L normal Not Available Not Available 07/26/2024 11:45:15 07/27/19 25 07/26/2024 [facility] 1999 panel - Serum or Plasm a potassium [moles/volum e] in serum or plasma 3.9 mmol/ L low: 3.5mmo l/Lhig h: 5.1mmo l/L normal Not Available Not Available 07/26/2024 11:45:15 07/27/19 25 07/26/2024 [facility]pr [facility] 1999 panel - Serum or Plasm [...] Available 07/26/2024 11:45:15 07/27/19 25 07/26/2024 [facility]pr [facility] [facility] 2000 panel - Serum or Plasm a anion gap in serum or plasma by calculation 14.9 mmol/ L low: 14mmol /Lhigh : 22mmol /L normal Not Available Not Available 07/26/2024 11:45:15 07/27/19 25 07/26/2024 [facility] ariela [place]le [facility] 1999 panel - Serum or Plasm a glucose [mass/volume ] in serum or plasma 112 mg/dL low: 70mg/d Lhigh: 99mg/d L high Not Available Not Available 07/26/2024 11:45:15 07/27/19 25 07/26/2024 [facility]pr [employer] 1999 panel - Serum or Plasm a urea nitrogen [mass or moles/volume ] in serum or plasma 22 mg/dL low: 8mg/dL high: 19mg/d L high Not Available Not Available 07/26/2024 11:45:15 07/27/19 25 07/26/2024 Compr Any[facility] ariela Stroodle [facility] 1999 panel - Serum or Plasm a creatinine [mass/volume ] in serum or plasma 0.59 mg/dL low: 0.66mg /dLhig h: 1.25mg /dL low Not Available Not Available 07/26/2024 11:45:15 07/27/19 25 07/26/2024 [facility]pr [facility] 2000 panel - Serum or Plasm a glomerular filtration rate [volume rate/area] in serum, plasma or blood by based on 1.73 sq M >60 normal Not Available Not Available 11:45:15 07/27/19 25 07/26/2024 [facility] Anygma ariela Stroodle [facility] 1999 panel - Serum or Plasm a alkaline phosphatase [enzymatic activity/vol ume] in serum or plasma 50 U/L low: 38U/Lh igh: 126U/L normal Not Available Not Available 07/26/2024 11:45:15 07/27/19 25 07/26/2024 [facility] Anygma ariela Stroodle ol 1999 panel - Serum or Plasm a alanine aminotransfe rase [enzymatic activity/vol ume] in serum or plasma 25 U/L low: 0U/Lhi gh: 35U/L normal Not Available Not Available 07/26/2024 11:45:15 07/27/19 25 07/26/2024 [facility] Anygma ariela Stroodle [employer] 1999 panel - Serum or Plasm a aspartate aminotransfe rase [enzymatic activity/vol ume] in serum or plasma 31 U/L low: 15U/Lh igh: 37U/L normal Not Available Not Available 07/26/2024 11:45:15 07/27/19 25 07/26/2024 [facility] Anygma ariela Stroodle [employer] 1999 panel - Serum or Plasm a bilirubin.to mikal [mass/volume ] in serum or plasma 0.7 mg/dL low: 0.2mg/ dLhigh : 1.3mg/ dL normal Not Available Not Available 07/26/2024 11:45:15 07/27/19 25 07/26/2024 [employer] ariela Stroodle ol 1999 panel - Serum or Plasm a calcium [mass/volume ] in serum or plasma 9.1 mg/dL low: 8.4mg/ dLhigh : 10.2mg /dL normal Not Available Not Available 07/26/2024 11:45:15 07/27/19 25 07/26/2024 [facility] Anygma ariela Stroodle [employer] 1999 panel - Serum or Plasm a protein [mass/volume ] in serum or plasma 6.4 g/dL low: 6.3g/d Lhigh: 8.2g/d L normal Not Available Not Available 07/26/2024 11:45:15 07/27/19 25 07/26/2024 [facility] Anygma ariela Stroodle [facility] 1999 panel - Serum or Plasm a albumin [mass/volume ] in serum or plasma 4.1 g/dL low: 3g/dLh igh: 4.4g/d L normal Not Available Not Available 07/26/2024 11:45:15 07/27/19 25 07/26/[address] [facility] 1999 panel - Serum or Plasm a globulin [mass/volume ] in serum 2.3 g/dL low: 2.6g/d Lhigh: 4.2g/d L low Not Available Not Available 07/26/2024 11:45:15 07/27/19 25 07/26/[address] [facility] 1999 panel - Serum or Plasm [...] Not Available Not Available 07/27/19 11:45:14 05/25/19 XR, chest No observ ation record ed. [address] [facility] [address], [address], 05/25/2024 23:11:32 05/25/19 25 jarod verma am No observ ation record ed. [email or web address] Not Available 2024 23:11:32 07/23/19 25 07/22/2024 XR, chest No observ ation record ed. [address] [place], [address], 07/29/2024 12:40:51 07/24/19 25 07/23/2024 XR, chest No observ ation record ed. [address] [place], [address], 07/29/2024 15:58:33 07/25/19 25 07/24/2024 XR, chest No observ ation record ed. [email or web address] [facility] [address] [place], [address], 07/24/2024 13:20:06 07/26/19 25 07/25/2024 XR, chest No observ ation record ed. [address] [place], [address], 08/05/2024 10:45:33 07/27/19 25 07/26/2024 XR, chest No observ ation record ed. [address] [place], [address], 08/05/2024 10:45:46 Result Notes None recorded. 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, [place], [address] , [place] - [facility] 7 14:50:05 Decrease in appetite 37942645 Active Not Available [facility] 2 07:20:31 Pressure injury of buttock 272233483 Active Not Available [facility] 2 07:20:31 Pressure ulcer stage 2 Active Not Available [facility] 2 07:20:31 [facility] thierno 39154969 Active Not Available [facility] 2 07:20:31 Pain in left lower limb 461467723 Active Not Available [facility] 2 07:20:31 Pain in right lower limb 181055040 Active Not Available [facility] 2 07:20:31 Acute bronchit is 57125449 Active Not Available [facility] 2 07:20:31 Cough 65522831 Active Not Available [facility] 2 07:20:32 Chronic obstruct ariela pulmonar y disease 81213350 Active 2016 Not Available [facility] 2 07:20:31 History of myocardi al infarcti on 232331552 Active 2016 Not Available [facility] 2 07:20:31 Bronchit is 84209278 Active 2017 Not Available [facility] 2 07:20:31 Tobacco user 257057251 Completed 201708/24/2023 Yang Rosales MD Attn: Accounting ,[address] [facility], [place], [address] , [place] [facility] 4 17:28:25 Depressi ve disorder 86733149 Active 2017 Not Available [facility] 2 07:20:31 Peripher al arterial occlusiv e disease 736228863 Active 2017 Not Available [facility] 2 07:20:31 Neuropat hy 762315926 Active 2017 Not Available [facility] 2 07:20:31 Spasm 81634839 Active 2017 both legs Not Available [facility] 2 07:20:31 Steatoti c liver disease 673257514 Active 2017 Not Available [facility] 2 07:20:31 Generali zed aches and pains 01404605 Active 2017 Not Available [facility] 2 07:20:31 Hypergly cemia 09381051 Active 2017 Not Available [facility] 2 07:20:31 Active immuniza tion Active 2017 Not Available [facility] 2 07:20:31 Coronary atherosc lerosis 785661233 Active 2018 Not Available [facility] 2 07:20:31 Chronic pain syndrome 376237498 Active 2019 Not Available [facility] 2 07:20:31 Contact dermatit is caused by urushiol from [facility] han 296864142 Active 2020 Not Available [facility] 2 07:20:31 Moderate protein- calorie malnutri tion (weight for age 60-74 percent of standard ) 735799128 Active 2021 Yang Rosales MD Attn: Accounting ,[address] [place], [address] , [place] 2 16:15:53 Cellulit is 305323396 Active 2021 periumbi lical Yang Rosales MD Attn: Accounting ,[address] [place], [address] , [place] 2 16:26:17 Abdomina l pain 77889228 Active 2021 Yang Rosales MD Attn: Accounting ,[address] [place], [address] , [place] [facility] 2 13:34:10 Insect bite of hand 945181644 Active 2022 Yang Rosales MD Attn: Accounting ,[address] [place], [address] , [place] 3 16:03:36 Allergic rhinitis 56538776 Active 2022 Yang Rosales MD Attn: Accounting ,[address] [facility], [place], [address] , [place] [facility] 3 16:06:20 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 51443486 Active 2022 Yang Rosales MD Attn: Accounting ,[address] [facility], [place], [place], [address] [place] [address] , [place] [facility] 3 15:55:13 History of acute respirat ory failure 52997043905 924281 Active 2022 Yang Rosales MD Attn: Accounting ,[address] [facility], [place], [place], [address] [place] [address] , [place] [facility] 3 16:43:17 Dependen ce on continuo us suppleme ntal oxygen 48164884493 103 Active 2023 Yang Rosales MD Attn: Accounting ,[address] [facility], [place], [address] [place] [address] , [place] [facility] 4 20:49:35 Upper respirat ory infectio n 38115281 Active 2023 Yang Rosales MD Attn: Accounting ,[address] [facility], [place], [address] , [place] [facility] 4 06:41:09 Memory impairme nt 834518418 Active 2024 Yang Rosales MD Attn: Accounting ,[address] [place], [address] , [place] [facility] 5 17:52:47 Notes:Some problems listed i n Document: #[id number] could not be added to this patient's chart. Please review this document and add these problems to the patient's chart manually as needed. Problem Notes None recorded. Procedures Surgical History Date Name Laterality Status Provider Name and Address Organization Details Recorded Time Other completed IGNACIO Shay - SI 09/03/2014 16:27:47 Other completed IGNACIO Shay - [facility] 09/03/2014 16:27:47 Imaging Results None recorded. Procedure Notes None recorded. Medical Equipment None Reported. Allergies Allergen ID Allergen Name Allergen Category Reaction Reaction Severity Criticality Documentation Date Start Date Code Code System Note Provider Name and Address Organization Details Recorded Time Adhesive agent (substanc e) environme nt,medica tion rash Not available high 01/07/20252021 75737 0007 SNOMED EKG leads Not Available [place] - External Data Service - prod 5 12:21:27 82130 Product containin g penicilli n (product) medicatio n itching Not available Not available 09/03/2014 81011 8001 SNOMED Angel echevarria MA [facility], [place] - [facility] 5 16:27:47 Medications Name Sig Start Date Stop Date Status Note LastModified by Organization Details LastModified Time Prescript ion - Renewal active Not Available Not Available Not Available Prescript ion - Change active Not Available Not Available Not Available losartan [...] Not Available Not Available No t Available warfarin 5 mg tablet 08/10 completed [...] Updated DateTime 06/11/2024 172.72 cm 15.5 kg/m2 62745.42 g 86 /min 111/73 mm[Hg] Radhika Salazar MA [facility] 06/11/2024 17:27:53 Date Recorded Body height Body mass index (BMI) Body weight Heart rate Oxygen saturation Systolic And Diastolic Provider Name and Address Organization Details Last Updated DateTime 172.72 cm 16.6 kg/m2 48612.5 7 g 103 /min 90 % 126/82 mm[Hg] Dariana Hanley MA [facility] 17:01:24 Date Recorded Body height Body mass index (BMI) Body weight Heart rate Systolic And Diastolic Provider Name and Address Organization Details Last Updated DateTime 10/30/2024 172.72 cm 16.2 kg/m2 71904.67 g 100 /min 88/44 mm[Hg] Bela Torres MA [facility] 10/30/2024 16:36:14 Date Recorded Oxygen saturation Inhaled oxygen flow rate Provider Name and Address Organization Details Last Updated DateTime 10/30/2024 96 % 2 L/min Dannielle Griffith LPN [facility] 10/30/2024 16:40:42 Date Recorded Body height Body mass index (BMI) Body weight Heart rate Systolic And Diastolic Provider Name and Address Organization Details Last Updated DateTime 02/12/2024 172.72 cm 15.7 kg/m2 79332.09 g 98 /min 90/61 mm[Hg] Haydee Blankenship MA [facility] 02/12/2024 17:48:24 Date Recorded Body height Body mass index (BMI) Body weight Body temperature Oxygen saturation Heart rate Systolic And Diastolic Provider Name and Address Organization Details Last Updated DateTime 3 172.72 cm 15.2 kg/m2 03010.2 4 g 98 [degF] 95 % 139 /min 120/78 mm[Hg] Dariana Hanley MA [place] [facility] 3 15:13:46 Social History Question Answer Notes LastModified by [employer] Details LastModified Time Tobacco Smoking Status Former Smoker Dariana Hanley MA null, [facility] 02/18/2021 15:19:08 Do You Have An [...] Functional Status Question Answer Note LastModified by [employer] ion Details LastModified Time Do you use [...] available 04/2015 13:08:14 Medical History Condition Response Anxiety Disorder Y Coronary Artery Disease Y High Blood Pressure Y High Cholesterol Y Heart Attack (MO) Y Stroke Y COPD Y Heart Failure Y Gynecological HistoryNo gynecological history recorded. Obstetrics History GPAL:G 0 P 0 0 0 0 Immunizations Vaccine Type Date Status Note Provider Nam e and Address Organization Details Recorded Time Influenza, split virus, quadrivalent, PF 2 completed Not Available [facility] 10/30/2024 16:17:29 Influenza, split virus, quadrivalent, PF 3 completed Not Available [facility] 10/30/2024 16:17:29 Influenza, split virus, quadrivalent, preservative 8 completed Not Available [facility] 04/06/2019 02:42:37 Pneumococcal conjugate PCV20, polysaccharide LSU119 conjugate, adjuvant, PF 5 completed Kayla Fowler MA [facility] with [facility] 10/30/2024 17:22:13 Past Encounters Encounter ID Performer Location Encounter Start Date Encounter Closed Date Diagnosis/Indication Diagnosis SNOMED-CT Code Diagnosis ICD10 Code Diagnosis IMO Codes Diagnosis Note [id number] MD Zina Chavarria (Adult Med) [address] [place] [address] [id number] 09/03/2014 16:10:47 09/04/2014 09:22:03 Backache 373592314 Demonstrat ed back with stretching exercises Anxiety disorder 254186515 [id number] [facility] [address] [place] [address] 11229-525 0 01/13/2015 16:12:11 01/15/2015 13:58:00 Acute myocardial infarction of inferolateral wall 64079785 I21.19 Decrease in appetite 643 44660 R63.0 Pressure i njury of buttock 405633384 L89.302 Pressure u lcer stage 2 341348680 L89.92 Anxiety disorder 06 F41.9 Essential hypertension 41434095 I10 Backache 503519071 M54.9 Demonstrat ed back with stretching exercises Pain in le ft lower limb 485004347 M79.605 Pain in ri ght lower limb 350174467 M79.604 [id number] MD Zina Chavarria (Adult Med) [address] [place] [address] [id number] 0 04/21/2015 12:07:24 04/21/2015 17:42:34 Pain in left lower limb 505837019 M79.605 Essential hypertension 00613979 I10 Backache 414066000 M54.9 Demonstrat ed back with stretching exercises Anxiety disorder F41.9 Cough 57648229 R05 Decrease in appetite 643 49744 R63.0 [id number] MD Zina Chavarria (Adult Med) [address] [place] [address] 59887-318 0 12/29/2016 13:49:16 12/29/2016 16:01:35 Chronic obstructive pulmonary disease 92546594 J44.9 History of myocardial infarction 892080966 I25.2 Essential hypertension 05439139 I10 [id number] MD Zina Chavarria (Adult Med) [address] [place] [address] 23113-530 0 12/29/2016 13:53:48 12/29/2016 16:40:58 [id number] MD Zina Chavarria (Adult Med) [address] [place] [address] [phone] 0 03/22/2017 10:47:44 03/22/2017 14:38:21 Chronic obstructive pulmonary disease 52903969 J44.9 Essential hypertension 13709015 I10 Tobacco user 190145636 Z 72.0 Bronchitis 43672150 J40 [id number] MD Zina Chavarria (Adult Med) [address] [place] [address] 86805-658 0 05/03/2017 15:17:13 05/03/2017 16:57:52 Essential hypertension 98637987 I10 Neuropathy 255731676 G62 .9 Will try to manage without meds Depressive disorder 9612 9007 F32.9 [id number] MD Zina Chavarria (Adult Med) [address] [place] [address] 04882-334 0 07/24/2017 14:05:04 07/25/2017 11:27:14 Bronchitis 30645882 J40 [id number] MD Zina Chavarria (Adult Med) [address] [place] [address] [phone] 0 08/10/2017 15:32:43 08/15/2017 12:10:28 Generalized aches and pains 92964793 R52 Chronic ob structive pulmonary disease 66722515 J44.9 Bronchitis 44735351 J40 [id number] MD Zina Chavarria (Adult Med) [address] [place] [address] 07468-094 0 11/13/2017 16:49:20 11/14/2017 11:05:18 Generalized aches and pains 76078720 R52 Combine naproxen with acetaminop hen BID Chronic ob structive pulmonary disease 37997535 J44.9 Decrease in appetite 643 84281 R63.0 Hyperglycemia 39498724 R 73.9 [id number] MD Zina Chavarria (Adult Med) [address] [place] [address] [id number] 0 03/07/2018 15:17:31 03/08/2018 09:48:15 Chronic obstructive pulmonary disease 66266097 J44.9 Bronchitis 00734594 J40 Peripheral arterial occlusive disease 909136685 I73.9 Active immunization 3387 9002 Z23 [id number] MD Zina Chavarria (Adult Med) [address] [place] [address] 50067-471 0 05/31/2018 16:37:31 06/01/2018 09:25:02 History of myocardial infarction 892746755 I25.2 Chronic ob structive pulmonary disease 10556875 J44.9 OK to resume Albuterol nebulizer and atrovent HFA Essential hypertension 52603538 I10 Peripheral arterial occlusive disease 701682072 I73.9 Coronary atherosclerosis 784853443 I25.119 F/U with cardiology post stent placement [id number] MD Zina Chavarria (Adult Med) [address] [place] [address] 86167-208 0 08/02/2018 16:05:42 08/03/2018 09:30:08 Coronary atherosclerosis 582254400 I25.119 F/U with cardiology post stent placement Peripheral arterial occlusive disease 973317194 I73.9 Discussed importance of smoking cessation. Suggested very gradual decrease to as little as 1 cig /d every 2-3 weeks Depressive disorder 3544 9007 F32.9 Increase venlafaxin e Tobacco user 080687389 Z 72.0 Chronic ob structive pulmonary disease 44769514 J44.9 OK to resume Albuterol nebulizer and atrovent HFA [id number] MD Zina Chavarria (Adult Med) [address] [place] [address] [id number] 0 11/27/2018 17:07:11 11/28/2018 13:10:18 Neuropathy 150996346 G62.9 Will try to manage without meds Peripheral arterial occlusive disease 003396842 I73.9 Discussed importance of smoking cessation. Suggested very gradual decrease to as little as 1 cig /d every 2-3 weeks Tobacco user 781506039 Z 72.0 Bronchitis 03920428 J40 Decrease in appetite 643 56519 R63.0 boost [id number] [facility] [address] [place] [address] [id number] 0 02/05/2019 16:58:39 02/06/2019 11:59:44 Spasm 51977619 R25.2 [id number] MD Zina Chavarria (Adult Med) [address] [place] [address] [phone] 0 08/05/2019 16:09:59 08/06/2019 14:14:21 Tobacco user 937938465 Z72.0 Chronic ob structive pulmonary disease 59236020 J44.9 OK to resume Albuterol nebulizer and atrovent HFA [id number] MD Zina Chavarria (Adult Med) [address] [place] [address] [id number] 0 02/19/2020 08:27:58 02/20/2020 13:30:50 Chronic pain syndrome 606680730 G89.4 Advised pt to contact marijuana dispensari es re access to [facility] [id number] MD Zina Chavarria (Adult Med) [address] [place] [address] 55346-428 0 09/30/2020 14:50:47 10/06/2020 15:08:06 Pain in right lower limb 476800834 M79.604 Peripheral arterial occlusive disease 698135545 I73.9 Discussed importance of smoking cessation. Suggested very gradual decrease to as little as 1 cig /d every 2-3 weeks Pain in le ft lower limb 138519118 M79.605 Contact de rmatitis caused by urushiol from [facility] han 087893496 L25.5 Improved. Complete prednisone and start antihistam ine [id number] MD Zina Chavarria (Adult Med) [address] [place] [address] 74252-366 0 12/29/2020 15:37:37 01/05/2021 12:45:55 Peripheral arterial occlusive disease 535186336 I73.9 Recent redo of AF bypass. F'U with surg Essential hypertension 53500413 I10 Neuropathy 653190504 G62 .9 Coronary atherosclerosis 705884386 I25.119 F/U with cardiology post stent placement [id number] MD Zina Chavarria (Adult Med) [address] [place] [address] [id number] 0 02/18/2021 15:04:20 02/19/2021 10:33:33 Peripheral arterial occlusive disease 229544906 I73.9 Recent redo of AF bypass. F'U with surg Essential hypertension 59927396 I10 Chronic ob structive pulmonary disease 65290985 J44.9 OK to resume Albuterol nebulizer and atrovent HFA Neuropathy 315910409 G62 .9 Spasm 96698902 R25.2 [id number] MD Zina Chavarria (Adult Med) [address] [place] [address] 82354-635 0 07/13/2021 15:38:29 07/15/2021 05:33:26 Bronchitis 57292714 J40 . Will rx symbicort Coronary atherosclerosis 746180724 I25.119 F/U with cardiology post stent placement Depressive disorder 3548 9007 F32.9 Increase venlafaxin e Essential hypertension 82735329 I10 Chronic ob structive pulmonary disease 98333082 J44.9 Continue ipratropiu m [id number] MD Zina Chavarria (Adult Med) [address] [place] [address] 78458-307 0 11/16/2021 15:56:06 11/17/2021 08:19:08 Chronic obstructive pulmonary disease 54211291 J44.9 Continue ipratropiu m per Dr. Rosales note on 07/13/21. Pt needs script Moderate protein-calorie malnutrition (weight for age 60-74 percent of standard) 835501447 E44.0 Cellulitis 878765248 L03 .90 [id number] MD Zina Chavarria (Adult Med) [address] [place] [address] [id number] 0 02/01/2022 11:34:25 02/04/2022 11:56:06 Bronchitis 12996295 J40 . Will rx symbicort Chronic ob structive pulmonary disease 49302609 J44.9 Continue ipratropiu m per Dr. Rosales note on 07/13/21. Pt needs script Essential hypertension 42325927 I10 Hyperglycemia 28273736 R 73.9 Neuropathy 318179072 G62 .9 Tobacco user 000502133 Z 72.0 [id number] MD Zina Guajardo (Adult Med) [address] [place] [address] 23596-055 0 03/23/2022 14:54:38 03/24/2022 10:48:21 Infection of right ear 0665716583 061820 H66.91 Discussed with patient, she agreed to try med as ordered. F/U with her PCP. [id number] MD Zina Chavarria (Adult Med) [address] [place] [address] 20600-280 0 09/26/2022 14:32:59 09/29/2022 14:35:29 Underweight 313044713 R63.6 Insect bite of hand 2833 63703 S60.561A Abdominal pain 22129338 R10.9 Anxiety disorder 4564063 06 F41.9 Allergic rhinitis 510860 04 J30.9 Chronic ob structive pulmonary disease 23964412 J44.9 Continue ipratropiu m per Dr. Rosales note on 07/13/21. Pt needs script Essential hypertension 99281080 I10 Will do labs on return [id number] MD Zina Chavarria (Adult Med) [address] [place] [address] [id number] 0 02/22/2023 14:57:14 02/27/2023 16:25:08 Moderate protein-calorie malnutrition (weight for age 60-74 percent of standard) 526786483 E44.0 Thrombosis of arteries of upper extremity 52278896 I74.2 History of acute respiratory failure 4130581471 9304909 Z87.09 [id number] MD Zina Chavarria (Adult Med) [address] [place] [address] 99239-748 0 08/24/2023 16:41:51 08/25/2023 14:40:00 Moderate protein-calorie malnutrition (weight for age 60-74 percent of standard) 418415569 E44.0 Chronic ob structive pulmonary disease 46955238 J44.9 Continue ipratropiu m per Dr. Rosales note on 07/13/21. Pt needs script Bronchitis 33325744 J40 . Will rx symbicort Coronary atherosclerosis 398735140 I25.119 F/U with cardiology post stent placement Dependence on continuous supplemental oxygen 9523435172 9103 Z99.81 Essential hypertension 71771006 I10 pt requesting BP monitor. History of myocardial infarction 167134748 I25.2 Hyperglycemia 31439241 R 73.9 Neuropathy 436889980 G62 .9 Peripheral arterial occlusive disease 319178485 I73.9 Recent redo of AF bypass. F'U with surg Thrombosis of arteries of upper extremity 77303345 I74.2 Allergic rhinitis 668905 04 J30.9 Depressive disorder 0787 7557 F32.9 Increase venlafaxin e [id number] MD Zina Chavarria (Adult Med) [address] [place] [address] 42381-935 0 02/12/2024 17:10:52 02/14/2024 12:16:03 Underweight 728338285 R63.6 Order protein supplement Depressive disorder 3544 2787 F32.9 Refer to [id number] MD Zina Chavarria (Adult Med) [address] [place] [address] 29663-108 0 06/11/2024 17:06:31 06/13/2024 14:50:56 Memory impairment 008925643 R41.3 Moderate protein-calorie malnutrition (weight for age 60-74 percent of standard) 055187324 E44.0 Essential hypertension 38398617 I10 pt requesting BP monitor. Dependence on continuous supplemental oxygen 0189308206 9103 Z99.81 F/U pulmonary [id number] Jasen Cardenas MD [facility] (Adult Med) [address] [place] [address] 10/30/2024 16:15:41 10/31/2024 09:20:43 Chronic obstructive pulmonary disease 95571857 J44.9 Recent flare now resolved, supportive Neuropathy 451073098 G62 .9 Partially controlled , add tylenol bid Moderate protein-calorie malnutrition (weight for age 60-74 percent of standard) 176889505 E44.0 Education, reorder [facility] Concerns Section Related Observation LastModified by Organization Detai ls LastModified Time None Recorded Concern Status LastModified by Organization Details LastModified Time None Recorded Advance Directives Directive N: Payers Insurance Date Sequence Insurance Name Policy Number Policy Cabrera Covered Member ID Cabrera Member ID Guarantor Name 01/26/2025 1 [facility] ON OR AFTER 09/17/20 (MEDICAID REPLACEMENT - HMO) Carly Oliveira [id number] Carly Oliveira 10/30/2024 1 [facility] PRIOR TO 09/17/2020 (MEDICAID REPLACEMENT - HMO) Carly Oliveira [id number] Carly Oliveira Notes Date Note Type Note Provider Name and Address Organization Details Recorded Time 02/22/2023 text/html Recently admitted to [facility] for cardiorespiratory arrest. Sent to rehab post discharge for about one week. No Pt/OT or Home health visits to date. She is currently on Home O2 and CPAP. Had clot in right arm. She has lost her appetite Yang Rosales MD Attn: Accounting, [address] , [place], [address], [place] [facility] 02/22/2023 17:01:06 08/24/2023 text/html Here for routine f/u. Feels OK. Needs med refills. Has not used walker in about six months. Did not get protein supplement. Has not smoked in five months Yang Rosales MD Attn: Accounting,[address] [facility], [place], [address], [place] [facility] 08/24/2023 17:39:15 02/12/2024 text/html Accompanied b her son.Pt is not motivated to move about much. Wants protein supplement. Yang Rosales MD Attn: Accounting,[address] [facility], [place], [address], [facility] - [facility] 02/13/2024 10:30:46 06/11/2024 text/html Here for f/u Appetite is poor in association with variable cognitive status. Needs to get Boost plus. Has experienced recent alteration in alertness and memory loss. Was not seen by Yang Rosales MD Attn: Accounting,[address] [facility], [place], [address], [facility] - [facility] 06/27/2024 13:07:19 10/30/2024 text/html S/p recent discharge for copd flare. Pt is doing well. She is tolerating home o2 with bipap. No new meds. Pt is requesting Boost, chocolate flavor instead of vanilla. No chest pain or sob Jasen Cardenas MD Attn: Accounting,[address] [facility], [place], [address], [place] [facility] 10/30/2024 17:39:27 OBGyn Episode No OBEpisode recorded.
--- OUTSIDE RECORDS SUMMARY | 2025-03-08 11:50 | XMS_ITS | Clinical Summary ---
Author Organization [facility] Address [address] [place] [address] Care Team Providers Care Pattern Chain Builder Name Role Phone Genesis Perez MD PhD Unavailable [phone] Yang Rosales MD Primary Care Provider Allergies [...] - Enalapril on hold perioperatively Atherosclerosis of [place] artery of extremity Aortoiliac occlusive disease 01/20/2015 [...] on file Legal Sex Female 11:40 AM OBSTETRICS GYN Gender Identity Not on file Sexual Orientation [...] 0 07/31/2024 Medical Devices Implanted Type Area Webbing Inspector Device Identifier Shelf Expiration Date Model / Serial / Lot [employer] [id number] Gelsoft Plus Vascutek 12/6mm 45cm Main Leg Bore Reduced - [id number] - [id number] Implanted:Qty : 1 on 12/01/2020 by Genesis Perez MD PhD at [facility] Graft N/A: Aorta [employer] [id number] 12/17/2022 [id number] / [id number] / [id number] Insurance [facility] Advance Directives For more information, please contact: [phone] * Full Code (Latest Code Status on File) Date Activated Date Inactivated Comments 11/25/2020 6:38 AM 12/08/2020 7:39 PM Care Teams Pattern Chain Builder Relationship Specialty Start Date End Date Yang Rosales MD [address] [address] PCP - General Gastroenterology 01/05/21 Genesis Perez MD PhD [id number] [place] [address] Surgeon Vascular Surgery 12/08/20
[2025-03-08 11:58] LABS: Hypochromasia 1+
[2025-03-08 12:00] LABS: Acanthocytes Occasional; Schistocytes None Seen
[2025-03-08 12:30] LABS: Alanine Aminotransferase 22 U/L (6-35); Albumin Level 4.3 g/dL (3.5-5.1); Alkaline Phosphatase 72 U/L (38-126); Anion Gap 7 mmol/L (4-12); Aspartate Amino Transferase 33 U/L (14-36); Bilirubin,Total 0.8 mg/dL (0.2-1.3); Blood Urea Nitrogen 11 mg/dL (7-17); Calcium 9.6 mg/dL (8.4-10.2); Carbon Dioxide 39 mmol/L (22-30); Chloride 94 mmol/L (98-107); Estimated Glomerular Filt Rate > 60; Glucose 120 mg/dL (65-110); Potassium 4.2 mmol/L (3.4-5.0); Sodium 140 mmol/L (137-145); Total Protein 8.0 g/dL (6.3-8.2)
--- NOTE | 2025-03-08 12:39 | ED_ITS ---
HPI - General Adult General Chief complaint: Shortness of Breath/Dyspnea Stated complaint: SOB Time Seen by Provider: 03/08/25 11:29 History of Present Illness HPI narrative: Patient is a 64-year-old female who presents ER with shortness of breath. Worsening over the last 7 days. Has been without her medications for longer than that. Reports subjective fevers and chills. No known sick contacts. Has thick productive cough. Typically wears 2 L of oxygen at home but is now had to turn up her O2 up. Currently 4 L in the ER. No chest pain or pressure. No pain with deep breath. 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 Related Data Home Medications ?Medication ?Instructions ?Recorded ?Confirmed ?Last Taken ?Type albuterol sulfate 90 mcg/actuation 2 puff inhalation Q 6H PRN sob 03/27/23 02/17/25 10/14/24 History aerosol inhaler apixaban 5 mg tablet (Eliquis) 5 mg PO BID 03/27/2310/13/24 History atorvastatin 80 mg tablet 80 mg PO HS 03/27/23 5 10/13/24 History gabapentin 300 mg capsule 300 mg PO TID 03/27/2302/1710/13/24 History losartan 50 mg tablet 50 mg PO DAILY 03/27/2304/1310/13/24 History metoprolol succinate 50 mg 50 mg PO DAILY 03/27/2304/1310/13/24 History tablet,extended release 24 hr venlafaxine 37.5 mg tablet 37.5 mg PO BID 03/27/2304/1310/13/24 History Allergies Allergy/AdvReac Type Severity Reaction Status Date / Time Penicillins Allergy Other Verified 02/20/25 09:51 Review of Systems 2 Review of Systems: All systems reviewed & are unremarkable except as noted in HPI and below Constitutional: Constitutional: Reports no additional constitutional complaints ENT: Reports system reviewed and no additional complaints, except as documented Cardiovascular: Cardiovascular: Reports no additional cardiovascular complaints Respiratory: Respiratory: Reports no additional respiratory complaints Gastrointestinal: Gastrointestinal: Reports no additional gastrointestinal complaints [facility] Past Medical History Medical History (Updated 03/08/25 @ 17:19 by David Dangelo MD) Hyperlipidemia Obstructive sleep apnea COPD (chronic obstructive pulmonary disease) Atrial fibrillation PAD (peripheral artery disease) Coronary disease Anxiety Chronic respiratory failure Hypertension Depression Surgical History Surgical History Hx of peripheral artery bypass Family History Family History Father Mesothelioma Mother Heart disease Social History Social History (Updated 02/17/25 @ 04:24 by Roxanne Sutton APRN) Social History: No alcohol or drug use. Lives at home with son, dtr-in-law and grandchild. Full code. She nominates her son to be the one who would make medical decisions for her if she is unable. Code status: Full code. Smoking packs per day: 1 Smoking cigarettes per day: 20.0 Years smoked: 50 Smoking pack-years: 50.00 Smoking status: Former smoker Tobacco type: cigarettes Smoking end date: 10/07/24 Alcohol intake: never Substance use: never Substance use type: marijuana Last use: 10/11/24 Lack of Transportation: No Lack of Food: Never True Current Housing: I Have Housing Concerned About Future Housing: No Difficulty Paying Gas/Electric Bills: No Difficulty Paying for Meds: No Currently Unemployed: No Education: Grade School Difficulty w/ Childcare or Family Care: No Spiritual care concerns: No Exam 2 Narrative: GENERAL: Chronically ill-appearing, thin, and in no acute distress. HEAD: Normocephalic, atraumatic. ENT: Mucous membranes moist. NECK: Supple. CHEST: Bibasilar rales. No respiratory distress. HEART: Tachycardic and regular. Normal peripheral pulses. ABDOMEN: Soft, nontender, nondistended. EXTREMITIES: Normal range of motion. No edema. SKIN: Warm, dry, no rash. NEURO: Alert and oriented x3. PSYCH: Normal mood and affect. Course Course Emergency Course: Patient resting comfortably. Informed of results. She does have RSV. She will be admitted for continued breathing treatments as well as hydration and steroids. Vital Signs Vital signs: Vital Signs Temperature 97.7 F 03/08/25 11:05 Pulse Rate 137 H 03/08/25 11:05 Respiratory Rate 24 H 03/08/25 11:05 Blood Pressure 155/78 H 03/08/25 11:05 Pulse Oximetry 99 03/08/25 11:05 Oxygen Delivery Nasal Cannula 03/08/25 11:05 Oxygen Flow Rate 4 03/08/25 11:05 Temperature 98.0 F 03/08/25 16:39 Pulse Rate 138 H 03/08/25 16:39 Respiratory Rate 20 03/08/25 16:39 Blood Pressure 135/72 03/08/25 16:39 Pulse Oximetry 97 03/08/25 16:39 Oxygen Delivery Nasal Cannula 03/08/25 11:05 Oxygen Flow Rate 4 03/08/25 11:05 MDM Differential Diagnosis Differential Diagnosis: Pneumonia, viral syndrome, COPD exacerbation, PE, pneumothorax, acute coronary syndrome Lab Data MDM Lab Attestation statement: I personally reviewed the patient's lab results. 03/08/25 11:29 03/08/25 11:38 Labs: Lab Results 03/08/25 03/08/25 03/08/25 Range/Units 11:29 11:38 12:39 WBC 8.0 (4.5-10.0) K/mm3 RBC 3.84 L (4.2-5.4) M/mm3 Hgb 11.1 L (12.0-15.0) g/dL Hct 37.2 (37.0-47.0) % MCV 96.9 (80-100) fl MCH 28.9 (26-34) pg MCHC 29.8 L (32-36) g/dl RDW 15.2 H (11.5-14.5) % Plt Count 166 (150-375) k/mm3 MPV 9.6 (7.4-10.4) fl Immature Gran % (Auto) 0.2 (0-0.5) % Neut % (Auto) 71.5 (45.5-73.1) % Lymph % (Auto) 15.4 L (18.3-44.2) % [place] % (Auto) 11.0 H (2.6-8.5) % Eos % (Auto) 1.4 (0-4.4) % Baso % (Auto) 0.5 (0.2-1.2) % Lymph # (Auto) 1.24 (0.9-3.2) K/mm3 [place] # (Auto) 0.9 H (0.1-0.6) K/mm3 Eos # (Auto) 0.1 (0-0.3) K/mm3 Baso # (Auto) 0.0 (0.0-0.1) K/mm3 Abs Immat Gran (auto) 0.02 (0.00-0.031) K/mm3 Absolute Neuts (auto) 5.7 (1.3-6.7) K/mm3 Absolute Nucleated RBC 0.000 (0.0-0.012) K/mm3 Band Neutrophils % Not Reportable Nucleated RBC % 0.0 (0.0-0.2) % Platelet Estimate Slightly decreased (Adequate) Large Platelets Present Hypochromasia 1+ Acanthocytes (Spur) Occasional Schistocytes None seen Sodium 140 (137-145) mmol/L Potassium 4.2 (3.4-5.0) mmol/L Chloride 94 L (98-107) mmol/L Carbon Dioxide 39 H (22-30) mmol/L Anion Gap 7 (4-12) mmol/L BUN 11 (7-17) mg/dL Creatinine 0.49 L (0.7-1.0) mg/dL Estim Creat Clear Calc Not Reportable Estimated GFR > 60 (59 - ) Glucose 120 H (65-110) mg/dL Calcium 9.6 (8.4-10.2) mg/dL Total Bilirubin 0.8 (0.2-1.3) mg/dL AST 33 (14-36) U/L ALT 22 (6-35) U/L Alkaline Phosphatase 72 (38-126) U/L Troponin I < 0.012 (0.000-0.034) ng/mL NT-Pro-B Natriuret Pep 133 H (19.9-100) pg/mL Total Protein 8.0 (6.3-8.2) g/dL Albumin 4.3 (3.5-5.1) g/dL Influenza A (RT-PCR) Negative (Negative) Influenza B (RT-PCR) Negative (Negative) RSV (RT-PCR) Positive A (Negative) SARS-CoV-2 RNA (RT-PCR) Negative (Negative) Imaging Data Attestation: I personally reviewed and interpreted this imaging study as follows: Radiologist's impression: ITS Impressions Chest X-Ray 03/08/25 11:40 IMPRESSION: 1. No acute cardiopulmonary findings given portable technique. Chest CTA 03/08/25 14:28 IMPRESSION: 1. Severe emphysematous changes of lungs. No evidence of pulmonary emboli. Severe atherosclerotic changes of thoracic aorta. ECG Data EKG #1: ECG completion date: 03/08/25 ECG completion time: 11:22 tachycardia (131), sinus rhythm, no ectopy, non-specific ST changes and normal QRS Discharge Plan Discharge Clinical Impression: Respiratory syncytial virus (RSV), Hypoxia, Emphysema lung Patient Disposition: Still a Patient Condition: Stable Patient Language: Welsh Prescriptions: No Action metoprolol succinate 50 mg tablet extended release 24 hr 50 mg PO DAILY venlafaxine 37.5 mg tablet 37.5 mg PO BID gabapentin 300 mg capsule 300 mg PO TID albuterol sulfate 90 mcg/actuation HFA aerosol inhaler 2 puff INHALATION Q6H PRN (Reason: sob) Eliquis 5 mg tablet 5 mg PO BID losartan 50 mg tablet 50 mg PO DAILY atorvastatin 80 mg tablet 80 mg PO HS cefpodoxime 100 mg Tablet 100 mg PO Q12HR Qty: 2 0RF budesonide-formoterol [Symbicort] 160-4.5 mcg/actuation HFA aerosol inhaler 2 puff inhalation Q12H 30 Days Qty: 10.2 5RF Spiriva Respimat 2.5 mcg/actuation mist 2 puff inhalation DAILY 30 Days Qty: 4 5RF Follow-up/Referrals: PHYSICIAN,PATIENT REGISTRATION SUPERVISOR [Primary Care Provider, Internal Medicine]
[2025-03-08] MEDS: IPRATROPIUM BR 0.02% INH SOLN 0.5 MG/2.5 ML VIAL 1 MG INHALATION (12:53)
[2025-03-08 12:57] LABS: NT Pro B Type Natriuretic Pept 133 pg/mL (19.9-100); Troponin I < 0.012 ng/mL (0.000-0.034)
[2025-03-08 13:20] LABS: Influenza A QL RT-PCR Negative (Negative); Influenza B QL RT-PCR Negative (Negative); RSV RNA, RT-PCR Positive (Negative); SARS-CoV-2 RNA PCR Negative (Negative)
[2025-03-08] MEDS: SODIUM CHLORIDE 0.9% IV 1,000 ML 999 ML IV CONT (13:41)
[2025-03-08] MEDS: SODIUM CHLORIDE 0.9% IV 1,000 ML 125 ML IV CONT (16:38)
[2025-03-08] MEDS: LACTATED RINGERS 1,000 ML 999 ML IV CONT (18:13)
[2025-03-08] MEDS: cefTRIAXone 1 GM in SODIUM CHLORIDE 0.9% IV 50 ML 100 ML IVPB (18:13)
[2025-03-08] MEDS: DOXYCYCLINE IV 100 MG in SODIUM CHLORIDE 0.9% IV 100 ML IVPB (19:03)
[2025-03-08] MEDS: BENZONATATE 100 MG CAPSULE PO (19:04)
[2025-03-08] MEDS: IPRATROPIUM BR 0.02% INH SOLN 0.5 MG/2.5 ML VIAL INHALATION (20:04)
--- NOTE | 2025-03-08 20:53 | WPCEDHO ---
ED Hand Off Checklist All vitals saved: IV Site documented: All med administrations documented: Triage Note Triage Note pt to ed [facility] home via [facility] 03/08/25 11:05 ems c/o sob for 3-4 days. states she has hx of copd, wears 2L o2 at home. states her breathing became worse the past few days, has been out of her rescue inhaler for awhile. per ems, pt was 86% on 2L, increased it to 4L and O2 sat ayse to 100%. pt states she has had productive cough of green mucus. also c/o withdrawal symptoms as she has been out of her venaflaxine for several weeks: shakiness, crying, panic attacks. Allergies Penicillins Allergy (Verified 02/20/25 09:51) Other Patient received ceftriaxone in February 2025 Family History (Last Reviewed 02/17/25 @ 04:23 by Roxanne Sutton APRN) Father Mesothelioma Mother Heart disease Active Medications including assessments/comments Benzonatate (Benzonatate 100 Mg Capsule) 100 mg PO TID [facility] Last Admin: 03/08/25 19:04 Dose: 100 mg Documented By: JOSEP Sodium Chloride (Normal Saline Iv) 1,000 mls @ 125 mls/hr IV CONT .Q8H [facility] Last Admin: 03/08/25 16:38 Dose: 125 mls/hr Documented By: JOSEP Infusion/Titration Document 03/08/25 16:38 JOSEP (Rec: 03/08/25 16:38 JOSEP [id number]) Intake IV Site Peripheral Access Right Hand Container Volume 1,000 Waste Amount 0 Dosing Infusion Rate 125 Cumulative Dose Not Applicable Increase/Decrease Started Elapsed Time Elapsed Time ( 0m minutes) Ipratropium Eldena (Ipratropium Br 0.02% Inh Soln 0.5 Mg/2.5 Ml Vial) 0.5 mg INHALATION Q6HRT [facility] Last Admin: 03/08/25 20:04 Dose: 0.5 mg Documented By: TOREY SPENCER Nebulizer Assessment Document 03/08/25 20:04 TOREY (Rec: 03/08/25 20:04 TOREY [id number]) Updraft Nebulizer Treatment Method Mask Treatment Tolerance Good Levalbuterol HCl (Levalbuterol Neb 1.25 Mg/3 Ml) 1.25 mg INHALATION Q6HRT [facility] Last Admin: 03/08/25 20:04 Dose: 1.25 mg Documented By: TOREY SPENCER Nebulizer Assessment Document 03/08/25 20:04 TOREY (Rec: 03/08/25 20:04 TOREY [id number]) Updraft Nebulizer Treatment Method Mask Treatment Tolerance Good Methylprednisolone Sodium Succinate (Methylprednisolone Sod Succ 125 Mg Vial) 60 mg IV PUSH Q6HR JIHAN Last Admin: 03/08/25 19:04 Dose: 60 mg Documented By: JOSEP Administered/Completed Medications Discontinued Medications Sodium Chloride (Normal Saline Iv) 1,000 mls @ 999 mls/hr IV CONT .Q1H1M STA Stop: 03/08/25 14:33 Last Infusion: 03/08/25 14:52 Dose: Infused Documented By: Admin: 03/08/25 13:41 Dose: 999 mls/hr Documented By: JOSEP Lactated Ringer's (Lr - Lactated Ringers Iv) 1,000 mls @ 999 mls/hr IV CONT .Q1H1M STA Stop: 03/08/25 18:48 Last Infusion: 03/08/25 20:14 Dose: Infused Documented By: Admin: 03/08/25 18:13 Dose: 999 mls/hr Documented By: JOSEP Ceftriaxone Sodium 1 gm/ (Sodium Chloride) 50 mls @ 100 mls/hr IVPB ONCE ONE Stop: 03/08/25 18:34 Last Infusion: 03/08/25 19:10 Dose: Infused Documented By: Admin: 03/08/25 18:13 Dose: 100 mls/hr Documented By: JOSEP Doxycycline Hyclate 100 mg/ (Sodium Chloride) 100 mls @ 100 mls/hr IVPB ONCE ONE Stop: 03/08/25 19:04 Last Infusion: 03/08/25 20:14 Dose: Infused Documented By: Admin: 03/08/25 19:03 Dose: 100 mls/hr Documented By: JOSEP Ipratropium Eldena (Ipratropium Br 0.02% Inh Soln 0.5 Mg/2.5 Ml Vial) 1 mg INHALATION ONCE STA Stop: 03/08/25 12:33 Last Admin: 03/08/25 12:53 Dose: 1 mg Documented By: THOMPSON Levalbuterol HCl (Levalbuterol Neb 1.25 Mg/3 Ml) 2.5 mg INHALATION ONCE STA Stop: 03/08/25 12:33 Last Admin: 03/08/25 12:53 Dose: 2.5 mg Documented By: DDS Interventions/Assessments IV / Saline Lock, Insert Start: 03/08/25 11:12 Freq: STAT Status: Active Protocol: Document 03/08/25 11:44 MCF (Rec: 03/08/25 11:44 MCF [id number]) IV Assessment Peripheral Access Right Hand IV Catheter Access Initiated IV Insertion Date 03/08/25 IV Insertion Time 11:44 Catheter Gauge 20 Ultrasound Used for No Placement IV Site Assessment WNL IV Care and WNL Maintenance PA: Cardiovascular Assessment Start: 03/08/25 11:05 Freq: Status: Active Protocol: Document 03/08/25 11:05 MCF (Rec: 03/08/25 11:12 MCF [id number]) Cardiovascular Assessment Cardiovascular None Symptoms Skin Description Normal Color Jugular Vein None Distention Chest Pain Assessment Chest Pain Intensity 0 PA: Respiratory Assessment Start: 03/08/25 11:05 Freq: Status: Active Protocol: Document 03/08/25 11:05 MCF (Rec: 03/08/25 11:12 MCF [id number]) Respiratory Assessment Symptoms Congestion,Cough,Shortness of Breath at Rest,Shortness of Breath With Exertion,Unable to Lie Flat Effort Labored,Short of Breath,Spontaneous Pattern Tachypnea Bilateral Throughout Phase Inspiratory & Expiratory Lung Sounds Crackles Cough Frequency Intermittent Oxygen Delivery Oxygen Delivery Nasal Cannula Oxygen Flow Rate 4 Pulse Oximetry (90- 99 100) Last Vital Signs Temperature 98.1 F 03/08/25 20:19 Pulse Rate 119 H 03/08/25 20:19 Respiratory Rate 24 H 03/08/25 20:19 Pulse Oximetry 98 03/08/25 20:19 Blood Pressure 137/79 03/08/25 20:19 Blood Pressure Mean 98 03/08/25 20:19 Blood Pressure Position Sitting 03/08/25 20:19 Oxygen Delivery Nasal Cannula 03/08/25 20:08 Oxygen Flow Rate 4 03/08/25 20:08 Weight 49.5 kg 03/08/25 11:05 Last Result - Abnormals Only RBC 3.84 M/mm3 (4.2-5.4) L 03/08/25 11:29 Hgb 11.1 g/dL (12.0-15.0) L 03/08/25 11:29 MCHC 29.8 g/dl (32-36) L 03/08/25 11:29 RDW 15.2 % (11.5-14.5) H 03/08/25 11:29 Lymph % (Auto) 15.4 % (18.3-44.2) L 03/08/25 11:29 [place] % (Auto) 11.0 % (2.6-8.5) H 03/08/25 11:29 [place] # (Auto) 0.9 K/mm3 (0.1-0.6) H 03/08/25 11:29 Chloride 94 mmol/L (98-107) L 03/08/25 11:38 Carbon Dioxide 39 mmol/L (22-30) H 03/08/25 11:38 Creatinine 0.49 mg/dL (0.7-1.0) L 03/08/25 11:38 Glucose 120 mg/dL (65-110) H 03/08/25 11:38 NT-Pro-B Natriuret Pep 133 pg/mL (19.9-100) H 03/08/25 11:38 RSV (RT-PCR) Positive (Negative) A 03/08/25 12:39 Most Recent Suicide Severity Rating Suicide Severity Rating NO RISK INDICATED 03/08/25 11:05
--- NOTE | 2025-03-08 22:51 | ADMGEN ---
This patient, Carly Oliveira, was admitted to Medical Room 347-. Patient/family oriented to hospital policies and general routines including ID bracelet, bed and alarms, visiting hours, pain management, procedures, bathroom and other care routines, personal items, smoking policy, room service/diet, and visiting hours. Information on how to activate the Rapid Response Team has been discussed. Patient/Family are encouraged to report perceived risks to care and to ask questions if they do not understand what they are told or what they should do.
[2025-03-08] MEDS: guaiFENesin 12 HR 600 MG TABCR PO (23:22)
--- NOTE | 2025-03-08 23:50 | P.HP_ITS ---
H&P: HPI History of Present Illness Date/Time: 03/08/25 23:50 Chief Complaint: Shortness of Breath Narrative: 64 y/o F with PMH of COPD, CAD, chronic respiratory failure on 2L nasal cannula, DVT RUE on anticoagulation, hyperlipidemia, hypertension, VIK on CPAP, atrial fibrillation, anxiety and depression presents here with shortness of breath. The patient presents here from home via EMS on 03/08 for further evaluation of shortness of breath. She reports onset of respiratory symptoms approximately 3- 4 days ago and her symptoms have been progressively worsening. She reports a history of COPD and chronic respiratory failure on supplemental O2 - 2L NC. She typically utilizes an inhaler at home, however she reports she has been out of this and was not able to use over the last few days. Per EMS, upon their arrival the patient was 86% on her baseline requirement but improved to 100% with increasing to 4L nasal cannula. She reports her shortness of breath is accompanied by a productive cough yielding green mucus, subject fever, chills, fatigue, and mild lightheadedness. She denies chest pain, nausea, vomiting, diarrhea, or abdominal pain. Additionally she is reporting withdrawal like symptoms (i.e. shakiness, crying, panic attacks) as she has been out of her Venlafaxine for several weeks. She additionally has a history of a DVT to her right upper extremity for which she is typically on Xarelto, however has been out of this medication as well and not been on it for the past couple of weeks. Only has a small amount of gabapentin left and was able to refill her metoprolol. States her PCP retired, saw a new provider who did not fill her scripts as he was only at the practice for a few days. [facility]'s office told her they would send her request for her medication refills to a new provider but this has not happened despite her calling two days in a row. Initial VS at presentation: 97.7? F, HR 137, R 24, 155/78, and 99% on 4L nasal cannula. ED workup showed: No leukocytosis, hemoglobin 11.1, creatinine 0.49 and GFR >60, glucose 120, initial troponin negative, BNP within normal limits for age. Patient tested positive for RSV on 03/08. CXR showed no acute cardiopulmonary findings. Chest CTA showed severe emphysematous changes of the lungs, no evidence of PE, severe atherosclerotic changes of thoracic aorta. EKG showed sinus tachycardia, rate 131, nonspecific T-wave abnormality and baseline artifact. Review of Systems Review of Systems: All systems reviewed & are unremarkable except as noted in HPI and below FOR[facility]LY [facility] Past Medical History Medical History (Updated 03/08/25 @ 17:52 by Diana Crouch APRN) Hyperlipidemia Obstructive sleep apnea COPD (chronic obstructive pulmonary disease) Atrial fibrillation PAD (peripheral artery disease) Coronary disease Anxiety Chronic respiratory failure Hypertension Depression Surgical History Surgical History Hx of peripheral artery bypass Family History Family History Father Mesothelioma Mother Heart disease Social History Social History (Updated 02/17/25 @ 04:24 by Roxanne Sutton APRN) Social History: No alcohol or drug use. Lives at home with son, dtr-in-law and grandchild. Full code. She nominates her son to be the one who would make medical decisions for her if she is unable. Code status: Full code. Smoking packs per day: 1 Smoking cigarettes per day: 20.0 Years smoked: 50 Smoking pack-years: 50.00 Smoking status: Former smoker Alcohol intake: never Substance use: former Substance use type: marijuana Last use: 10/11/24 Lack of Transportation: No Lack of Food: Never True Current Housing: I Have Housing Concerned About Future Housing: No Difficulty Paying Gas/Electric Bills: No Difficulty Paying for Meds: No Currently Unemployed: No Education: Grade School Difficulty w/ Childcare or Family Care: No Spiritual care concerns: No Meds Home Medications and Allergies Home Medications ?Medication ?Instructions ?Recorded ?Confirmed ?Type albuterol sulfate 90 mcg/actuation 2 puff inhalation Q 6H PRN sob 03/27/23 03/08/25 History aerosol inhaler apixaban 5 mg tablet (Eliquis) 5 mg PO BID 03/27/23 History atorvastatin 80 mg tablet 80 mg PO HS 03/27/23 5 History gabapentin 300 mg capsule 300 mg PO TID 03/27/2303/08 History losartan 50 mg tablet 50 mg PO DAILY 03/27/2302/18 History metoprolol succinate 50 mg 50 mg PO DAILY 03/27/23 History tablet,extended release 24 hr venlafaxine 37.5 mg tablet 37.5 mg PO BID 03/27/23 History budesonide-formoterol HFA 160 2 puff inhalation Q12H 1 month 02/24/25 03/08/25 Rx mcg-4.5 mcg/actuation aerosol #10.2 grams inhaler (Symbicort) tiotropium bromide 2.5 2 puff inhalation DAILY COPD 1 02/24/25 03/08/25 Rx mcg/actuation mist for inhalation month #4 grams (Spiriva Respimat) Allergies Allergy/AdvReac Type Severity Reaction Status Date / Time Penicillins Allergy Other Verified 03/08/25 23:57 Vital Signs Vital Signs - 24 hr 03/08/25 11:05 03/08/25 11:05 03/08/25 12:54 Temperature 97.7 F Pulse Rate 137 H 127 H Respiratory Rate 24 H 30 H Blood Pressure 155/78 H Pulse Oximetry 99 99 Oxygen Delivery Nasal Cannula Nasal Cannula Oxygen Flow Rate 4 4 03/08/25 13:37 03/08/25 15:24 03/08/25 16:39 Temperature 97.8 F 97.7 F 98.0 F Pulse Rate 153 H 123 H 138 H Respiratory Rate 26 H 26 H 20 Blood Pressure 142/80 H 145/46 H 135/72 Pulse Oximetry 96 100 97 Oxygen Delivery Oxygen Flow Rate Exam Const: General: comfortable and no acute distress Other: , female, nontoxic appearance HENMT: Face/Nose/Sinus: Normal nares present Mouth: Yes moist mucous membranes Eyes: General: appearance normal, both eyes and all related structures Sclera: sclerae normal Pupils: Equal, round and reactive pupils present EOM: EOMs intact bilaterally Resp: Effort & Inspection: normal respiratory effort Auscultation: clear to auscultation bilaterally Other: Mild tachypnea, no accessory muscle use. Nasal cannula place and tolerating well. No other adventitious lung sounds. Cardio: Rate: tachycardic Rhythm: regular rhythm Other: S1-S2 present without murmur, rub, ectopy GI: Other: Abdomen soft, nondistended, nontender. Normoactive bowel sounds in all q uadrants. Skin: General skin exam: normal color and no rashes or lesions noted Wounds: no wounds Neuro: Speech: normal speech Motor exam (neuro): 5/5 motor strength present throughout Sensory Exam: normal sensation Other: A&O x4 Extrem: General: normal to inspection Psych: Mental Status: mental status grossly normal Affect: Anxious affect present Other: Fair insight and judgment, pleasant Results Labs Labs: Short CBC 03/08/25 Range/Units 11:29 WBC 8.0 (4.5-10.0) K/mm3 Hgb 11.1 L (12.0-15.0) g/dL Hct 37.2 (37.0-47.0) % Plt Count 166 (150-375) k/mm3 BMP 03/08/25 11:38 Sodium 140 Potassium 4.2 Chloride 94 L Carbon Dioxide 39 H BUN 11 Creatinine 0.49 L Glucose 120 H Calcium 9.6 Cardiac Enzymes 03/08/25 Range/Units 11:38 Troponin I < 0.012 (0.000-0.034) ng/mL Liver Function 03/08/25 Range/Units 11:38 Total Bilirubin 0.8 (0.2-1.3) mg/dL AST 33 (14-36) U/L ALT 22 (6-35) U/L Alkaline Phosphatase 72 (38-126) U/L Albumin 4.3 (3.5-5.1) g/dL Quality VTE Prophylaxis VTE prophylaxis: pharmacologic ordered Assessment and Plan Assessment and plan (1) Acute and chronic respiratory failure, unspecified whether with hypoxia or hypercapnia: Qualifiers: Respiratory failure complication: hypoxia Qualified Code(s): J96.21 - Acute and chronic respiratory failure with hypoxia Code(s): J96.20 - Acute and chronic respiratory failure, unspecified whether with hypoxia or hypercapnia Status: Acute Assessment and Plan: Patient here with respiratory symptoms and found to have acute on chronic respiratory failure with hypoxia. Patient typically requires 2L nasal cannula at baseline. 86% on her home O2. Now 99% on 4L nasal cannula. Workup significant for RSV. CXR and chest CT reviewed. No evidence of infection however patient does have increased sputum production/changes in sputum with history of COPD, started on prophylactic antibiotics due to this. No current alteration concerning for hypercapnia. - supportive care for RSV - prophylactic antibiotics due to COPD exacerbation/increase sputum production however there is no evidence of infection currently on CXR/CTA - continue supplemental oxygen to maintain O2 sat greater than 92%, may wean to baseline requirement as tolerated - monitor neurologic status - monitor hemodynamic stability (2) COPD exacerbation: Code(s): J44.1 - Chronic obstructive pulmonary disease with (acute) exacerbation Status: Acute Assessment and Plan: Patient here with COPD exacerbation likely related to RSV infection. Reporting increased sputum production and change in sputum quality, now green and thick. - initially placed on DuoNebs isacc, however patient significantly tachycardic. Exchanged to Atrovent/Xopenex isacc. - methylprednisolone IV isacc - continue home medications: - Mucinex isacc (3) SIRS (systemic inflammatory response syndrome): Code(s): R65.10 - Systemic inflammatory response syndrome (SIRS) of non-infectious origin without acute organ dysfunction Status: Acute Assessment and Plan: Patient met SIRS criteria due to HR and RR. However no leukocytosis and no evidence of bacterial infection. Did test positive for RSV and is currently complicated by COPD exacerbation. She has received nebulizers and steroids which may be affecting her heart rate. Low suspicion for bacteremia/sepsis. Will check lactic, if elevated will proceed with blood cultures. Patient is being started on broad-spectrum antibiotics due to her COPD exacerbation. However there is no evidence of pneumonia on CXR or chest CTA. (4) Respiratory syncytial virus (RSV): Qualifiers: RSV infection type: acute bronchitis Qualified Code(s): J20.5 - Acute bronchitis due to respiratory syncytial virus Code(s): B33.8 - Other specified viral diseases Status: Acute Assessment and Plan: Patient here with symptoms for the past 3-4 days/week? Tested positive for RSV on 03/08. Reports family member has had similar symptoms. No current evidence of pneumonia. Complicated by COPD exacerbation. - supportive care including: Mucinex isacc Nebulizers isacc Tylenol p.r.n. Tessalon Perles p.r.n. Steroids isacc IV fluids - currently requiring an increase in supplemental oxygen from her baseline, see above (5) Depression: Qualifiers: Depression Type: unspecified Qualified Code(s): F32.A - Depression, unspecified Code(s): F32.A - Depression, unspecified Status: Acute Assessment and Plan: History of depression and anxiety. Patient reports she has been out of her Venlafaxine for some time. Currently feels she is going through withdrawal citing she has been increasingly shaking, crying more, and having an increase in panic attacks. Of note, patient was admitted from 02/17/2025 to 02/20/2025 during which time she received her anxiety/depression medications. - resume Effexor, will need refill at discharge (6) Atrial fibrillation: Qualifiers: Atrial fibrillation type: unspecified Qualified Code(s): I48.91 - Unspecified atrial fibrillation Code(s): I48.91 - Unspecified atrial fibrillation Status: Chronic Assessment and Plan: Patient has history of atrial fibrillation on Eliquis and metoprolol. Reportedly has not been taking Eliquis for some time. Chest CTA negative for PE. Tachycardic in the emergency department in the 130s, however per EKG sinus tach. - resume home medications: Metoprolol and Eliquis - telemetry monitoring (7) Hypertension: Qualifiers: Hypertension type: primary hypertension Qualified Code(s): I10 - Essential (primary) hypertension Code(s): I10 - Essential (primary) hypertension Status: Chronic Assessment and Plan: - chronic, currently 135/72, stable. - continue home medications: Losartan, metoprolol - monitor (8) Hyperlipidemia: Qualifiers: Hyperlipidemia type: unspecified Qualified Code(s): E78.5 - Hyperlipidemia, unspecified Code(s): E78.5 - Hyperlipidemia, unspecified Status: Chronic Assessment and Plan: - continue home medication:, atorvastatin 80 mg daily (9) Obstructive sleep apnea: Code(s): G47.33 - Obstructive sleep apnea (adult) (pediatric) Status: Chronic Assessment and Plan: - continue home CPAP Plan Patient has been unable to see a provider since her is retired. Currently out of all of her medications except her metoprolol and has a small amount of gabapentin left. Requesting refills of her medications to bridge to finding a new PCP. Diet: Heart healthy GI Prophylaxis: n/a DVT Prophylaxis: Eliquis IV fluids: 2L -> 125 mL/hr Lines/Tubes: pIV Code Status: full code Prior Studies I have reviewed the following patient records and this information was taken into consideration when formulating the assessment and plan.: previous labs, previous ER visits, previous hospitalizations and previous clinic visits Time Spent with Patient Time with patient: less than 45 minutes Hospitalist MIPS Advance Care Plan I have confirmed that the patient's Advanced Care Plan is present, code status is documented, or surrogate decision maker is listed in patient medical record.: Yes Medication Reconciliation I have utilized all available resources to obtain, update and review the patients current medications (includes all prescriptions, OTC, herbals, cannabis, and nutritional supplements).: Yes
[2025-03-09] VITALS (21 sets, daily range): BP systolic 108–131; BP diastolic 58–71; PULSE 87–121; RESP 12–20; TEMP 36.2–36.7; O2SAT 94–100
[2025-03-09] MEDS: ALPRAZolam (*CRX) 0.25 MG TABLET PO ×2 (00:24→21:21)
[2025-03-09] MEDS: IPRATROPIUM BR 0.02% INH SOLN 0.5 MG/2.5 ML VIAL INHALATION ×4 (02:22→20:17)
[2025-03-09] MEDS: SODIUM CHLORIDE 0.9% IV 1,000 ML 125 ML IV CONT ×3 (03:09→21:22)
[2025-03-09] MEDS: GABAPENTIN 300 MG CAPSULE PO ×3 (06:34→21:22)
[2025-03-09] MEDS: DOXYCYCLINE IV 100 MG in SODIUM CHLORIDE 0.9% IV 100 ML IVPB ×2 (06:34→18:25)
[2025-03-09] MEDS: VENLAFAXINE HCL 37.5 MG TABLET PO ×2 (08:26→17:36)
[2025-03-09] MEDS: METOPROLOL SUCCINATE EXT REL 50 MG TABCR PO (08:26)
[2025-03-09] MEDS: BENZONATATE 100 MG CAPSULE PO ×3 (08:26→17:35)
[2025-03-09] MEDS: APIXABAN 5 MG TABLET PO ×2 (08:26→21:21)
[2025-03-09] MEDS: LOSARTAN POTASSIUM 50 MG TABLET PO (08:26)
[2025-03-09] MEDS: guaiFENesin 12 HR 600 MG TABCR PO ×2 (08:26→21:23)
[2025-03-09] MEDS: FLUTICASONE/SALMETEROL 115-21 MCG INHALER 1 PUFF 2 PUFF INHALATION ×2 (09:56→20:30)
--- NOTE | 2025-03-09 12:23 | PM.IMPN2 ---
Assessment and Plan Assessment and Plan (1) Acute and chronic respiratory failure, unspecified whether with hypoxia or hypercapnia: Qualifiers: Respiratory failure complication: hypoxia Qualified Code(s): J96.21 - Acute and chronic respiratory failure with hypoxia Code(s): J96.20 - Acute and chronic respiratory failure, unspecified whether with hypoxia or hypercapnia Status: Acute Assessment and Plan: Patient here with respiratory symptoms and found to have acute on chronic respiratory failure with hypoxia. Patient typically requires 2L nasal cannula at baseline. 86% on her home O2. Now 99% on 4L nasal cannula. Workup significant for RSV. CXR and chest CT reviewed. No evidence of infection however patient does have increased sputum production/changes in sputum with history of COPD, started on prophylactic antibiotics due to this. No current alteration concerning for hypercapnia. - supportive care for RSV - prophylactic antibiotics due to COPD exacerbation/increase sputum production however there is no evidence of infection currently on CXR/CTA - continue supplemental oxygen to maintain O2 sat greater than 92%, may wean to baseline requirement as tolerated - monitor neurologic status - monitor hemodynamic stability (2) COPD exacerbation: Code(s): J44.1 - Chronic obstructive pulmonary disease with (acute) exacerbation Status: Acute Assessment and Plan: Patient here with COPD exacerbation likely related to RSV infection. Reporting increased sputum production and change in sputum quality, now green and thick. - initially placed on DuoNebs isacc, however patient significantly tachycardic. Exchanged to Atrovent/Xopenex isacc. - methylprednisolone IV isacc - continue home medications: - Mucinex isacc (3) SIRS (systemic inflammatory response syndrome): Code(s): R65.10 - Systemic inflammatory response syndrome (SIRS) of non-infectious origin without acute organ dysfunction Status: Acute Assessment and Plan: Patient met SIRS criteria due to HR and RR. However no leukocytosis and no evidence of bacterial infection. Did test positive for RSV and is currently complicated by COPD exacerbation. She has received nebulizers and steroids which may be affecting her heart rate. Low suspicion for bacteremia/sepsis. Will check lactic, if elevated will proceed with blood cultures. Patient is being started on broad-spectrum antibiotics due to her COPD exacerbation. However there is no evidence of pneumonia on CXR or chest CTA. (4) Respiratory syncytial virus (RSV): Qualifiers: RSV infection type: acute bronchitis Qualified Code(s): J20.5 - Acute bronchitis due to respiratory syncytial virus Code(s): B33.8 - Other specified viral diseases Status: Acute Assessment and Plan: Patient here with symptoms for the past 3-4 days/week? Tested positive for RSV on 03/08. Reports family member has had similar symptoms. No current evidence of pneumonia. Complicated by COPD exacerbation. - supportive care including: Mucinex isacc Nebulizers isacc Tylenol p.r.n. Tessalon Perles p.r.n. Steroids isacc IV fluids - currently requiring an increase in supplemental oxygen from her baseline, see above (5) Depression: Qualifiers: Depression Type: unspecified Qualified Code(s): F32.A - Depression, unspecified Code(s): F32.A - Depression, unspecified Status: Acute Assessment and Plan: History of depression and anxiety. Patient reports she has been out of her Venlafaxine for some time. Currently feels she is going through withdrawal citing she has been increasingly shaking, crying more, and having an increase in panic attacks. Of note, patient was admitted from 02/17/2025 to 02/20/2025 during which time she received her anxiety/depression medications. - resume Effexor, will need refill at discharge (6) Atrial fibrillation: Qualifiers: Atrial fibrillation type: unspecified Qualified Code(s): I48.91 - Unspecified atrial fibrillation Code(s): I48.91 - Unspecified atrial fibrillation Status: Chronic Assessment and Plan: Patient has history of atrial fibrillation on Eliquis and metoprolol. Reportedly has not been taking Eliquis for some time. Chest CTA negative for PE. Tachycardic in the emergency department in the 130s, however per EKG sinus tach. - resume home medications: Metoprolol and Eliquis - telemetry monitoring (7) Hypertension: Qualifiers: Hypertension type: primary hypertension Qualified Code(s): I10 - Essential (primary) hypertension Code(s): I10 - Essential (primary) hypertension Status: Chronic Assessment and Plan: - chronic, currently 135/72, stable. - continue home medications: Losartan, metoprolol - monitor (8) Hyperlipidemia: Qualifiers: Hyperlipidemia type: unspecified Qualified Code(s): E78.5 - Hyperlipidemia, unspecified Code(s): E78.5 - Hyperlipidemia, unspecified Status: Chronic Assessment and Plan: - continue home medication:, atorvastatin 80 mg daily (9) Obstructive sleep apnea: Code(s): G47.33 - Obstructive sleep apnea (adult) (pediatric) Status: Chronic Assessment and Plan: - continue home CPAP Plan Patient has been unable to see a provider since her is retired. Currently out of all of her medications except her metoprolol and has a small amount of gabapentin left. Requesting refills of her medications to bridge to finding a new PCP. Diet: Heart healthy GI Prophylaxis: n/a DVT Prophylaxis: Eliquis IV fluids: 2L -> 125 mL/hr Lines/Tubes: pIV Code Status: full code Subjective Date/time seen: 03/09/25 12:23 Interval history: Patient was seen during the morning rounds today. Patient has mild shortness of breath. No chest pain. No abdominal pain, nausea, no vomiting. Review of Systems Review of Systems: All systems reviewed & are unremarkable except as noted in HPI and below Exam Const: General: comfortable and no acute distress Other: , female, nontoxic appearance HENMT: Face/Nose/Sinus: Normal nares present Mouth: Yes moist mucous membranes Eyes: General: appearance normal, both eyes and all related structures Sclera: sclerae normal Pupils: Equal, round and reactive pupils present EOM: EOMs intact bilaterally Resp: Effort & Inspection: normal respiratory effort Auscultation: clear to auscultation bilaterally Other: Mild tachypnea, no accessory muscle use. Nasal cannula place and tolerating well. No other adventitious lung sounds. Cardio: Rate: tachycardic Rhythm: regular rhythm Other: S1-S2 present without murmur, rub, ectopy GI: Other: Abdomen soft, nondistended, nontender. Normoactive bowel sounds in all quadrants. Skin: General skin exam: normal color and no rashes or lesions noted Wounds: no wounds Neuro: Cranial nerves: Yes Equal, round and reactive pupils present Speech: normal speech Motor exam (neuro): 5/5 motor strength present throughout Sensory Exam: normal sensation Other: A&O x4 Extrem: General: normal to inspection Psych: Mental Status: mental status grossly normal Affect: Anxious affect present Other: Fair insight and judgment, pleasant Objective Data Vital Signs Vital Signs: Vital Signs - 24 hr 03/08/25 12:54 03/08/25 13:37 03/08/25 15:24 Temperature 36.6 C 36.5 C Pulse Rate 127 H 153 H 123 H Respiratory Rate 30 H 26 H 26 H Blood Pressure 142/80 H 145/46 H Pulse Oximetry 96 100 Oxygen Delivery Oxygen Flow Rate 03/08/25 16:39 03/08/25 20:08 03/08/25 20:08 Temperature 36.7 C Pulse Rate 138 H 96 127 H Respiratory Rate 20 16 18 Blood Pressure 135/72 Pulse Oximetry 97 96 Oxygen Delivery Nasal Cannula Oxygen Flow Rate 4 03/08/25 20:16 03/08/25 20:19 03/08/25 21:12 Temperature 36.7 C 36.6 C Pulse Rate 127 H 119 H 127 H Respiratory Rate 18 24 H 24 H Blood Pressure 137/79 141/67 H Pulse Oximetry 98 99 Oxygen Delivery Oxygen Flow Rate 03/09/25 00:00 03/09/25 02:34 03/09/25 02:34 Temperature Pulse Rate 121 H 111 H 111 H Respiratory Rate 18 Blood Pressure Pulse Oximetry 100 Oxygen Delivery Nasal Cannula Oxygen Flow Rate 4 03/09/25 02:34 03/09/25 02:42 03/09/25 04:00 Temperature Pulse Rate 109 H 99 Respiratory Rate 18 Blood Pressure Pulse Oximetry Oxygen Delivery Autopap Oxygen Flow Rate 03/09/25 06:00 03/09/25 08:26 03/09/25 08:45 Temperature 36.7 C Pulse Rate 102 H 99 Respiratory Rate 20 Blood Pressure 108/58 L Pulse Oximetry 98 98 Oxygen Delivery Nasal Cannula Oxygen Flow Rate 2 03/09/25 09:56 03/09/25 10:09 Temperature Pulse Rate 93 98 Respiratory Rate 18 18 Blood Pressure Pulse Oximetry Oxygen Delivery Oxygen Flow Rate Intake/Output Intake/Output: Intake & Output 03/06/25 03/07/25 03/08/25 03/09/25 23:59 23:59 23:59 23:59 Intake Total 2150 1120 Balance 2150 1120 Meds/Results Medications: Active Medications Generic Name Dose Route Start Last Admin Trade Name Freq PRN Reason Stop Dose Admin Acetaminophen 650 mg 03/08/25 16:21 Acetaminophen 325 Mg Tablet PO Q4H PRN Mild Pain (1-3) or Fever Hydrocodone Bitart/Acetaminophen 1 tab 03/08/25 16:21 Hydrocodone/Acetaminophen (*Crx) 5-325 Mg Tablet PO Q4H PRN Pain Rated 4-6 Apixaban 5 mg 03/09/25 09:00 03/09/25 08:26 Apixaban 5 Mg Tablet PO 5 mg Q12HR ISACC Administration Atorvastatin Calcium 80 mg 03/09/25 21:00 Atorvastatin 20 Mg Tablet PO HS ISACC Benzonatate 100 mg 03/08/25 18:05 03/09/25 08:26 Benzonatate 100 Mg Capsule PO 100 mg TID ISACC Administration Gabapentin 300 mg 03/09/25 06:00 03/09/25 06:34 Gabapentin 300 Mg Capsule PO 300 mg Q8HR ISACC Administration Guaifenesin 600 mg 03/08/25 21:00 03/09/25 08:26 Guaifenesin 12 Hr 600 Mg Tabcr PO 600 mg Q12HR ISACC Administration Sodium Chloride 1,000 mls @ 125 mls/hr 03/08/25 16:25 03/09/25 03:09 Normal Saline Iv IV CONT 125 mls/hr .Q8H ISACC Administration Ceftriaxone Sodium 1 gm/ 50 mls @ 100 mls/hr 03/09/25 18:00 Sodium Chloride IVPB Q24H ISACC Doxycycline Hyclate 100 mg/ 100 mls @ 100 mls/hr 03/09/25 06:00 03/09/25 06:34 Sodium Chloride IVPB 03/13/25 06:59 100 mls/hr Q12H ISACC Administration Ipratropium [place] 0.5 mg 03/08/25 20:00 03/09/25 09:56 Ipratropium Br 0.02% Inh Soln 0.5 Mg/2.5 Ml Vial INHALATION 0.5 mg Q6HRT ISACC Administration Levalbuterol HCl 1.25 mg 03/08/25 20:00 03/09/25 09:56 Levalbuterol Neb 1.25 Mg/3 Ml INHALATION 1.25 mg Q6HRT ISACC Administration Losartan Potassium 50 mg 03/09/25 09:00 03/09/25 08:26 Losartan Potassium 50 Mg Tablet PO 50 mg DAILY ISACC Administration Methylprednisolone Sodium Succinate 60 mg 03/08/25 18:00 03/09/25 06:35 Methylprednisolone Sod Succ 125 Mg Vial IV PUSH 60 mg Q6HR ISACC Administration Metoprolol Succinate 50 mg 03/09/25 09:00 03/09/25 08:26 Metoprolol Succinate Ext Rel 50 Mg Tabcr PO 50 mg DAILY ISACC Administration Ondansetron HCl 4 mg 03/08/25 16:21 Ondansetron Inj 4 Mg/2 Ml Vial IV PUSH Q4H PRN Nausea Fluticasone/Salmeterol 2 puff 03/09/25 08:00 03/09/25 09:56 Fluticasone/Salmeterol 115-21 Mcg Inhaler 1 Puff INHALATION 2 puff Q12HRT ISACC Administration Umeclidinium [place] 1 puff 03/09/25 08:00 03/09/25 10:23 Umeclidinium [place] 62.5 Mcg Ellipta INHALATION Not Given DAILYRT ISACC Venlafaxine HCl 37.5 mg 03/09/25 09:00 03/09/25 08:26 Venlafaxine Hcl 37.5 Mg Tablet PO 37.5 mg BID ISACC Administration Radiology Results: ITS Impressions Chest X-Ray 03/08/25 11:40 IMPRESSION: 1. No acute cardiopulmonary findings given portable technique. Chest CTA 03/08/25 14:28 IMPRESSION: 1. Severe emphysematous changes of lungs. No evidence of pulmonary emboli. Severe atherosclerotic changes of thoracic aorta. Labs Labs: Laboratory Results - last 24 hr 03/08/25 03/08/25 03/08/25 11:38 12:39 20:50 Sodium 140 Potassium 4.2 Chloride 94 L Carbon Dioxide 39 H Anion Gap 7 BUN 11 Creatinine 0.49 L Estim Creat Clear Calc Not Reportable Estimated GFR > 60 Glucose 120 H Lactic Acid 1.8 Calcium 9.6 Total Bilirubin 0.8 AST 33 ALT 22 Alkaline Phosphatase 72 Troponin I < 0.012 NT-Pro-B Natriuret Pep 133 H Total Protein 8.0 Albumin 4.3 Influenza A (RT-PCR) Negative Influenza B (RT-PCR) Negative RSV (RT-PCR) Positive A SARS-CoV-2 RNA (RT-PCR) Negative Quality VTE Prophylaxis VTE prophylaxis: pharmacologic ordered
[2025-03-09] MEDS: cefTRIAXone 1 GM in SODIUM CHLORIDE 0.9% IV 50 ML 100 ML IVPB (17:35)
[2025-03-09] MEDS: ATORVASTATIN 20 MG TABLET 80 MG PO (21:22)
[2025-03-10] VITALS (8 sets, daily range): BP systolic 126; BP diastolic 61; PULSE 90–104; RESP 16–18; TEMP 36.5; O2SAT 92–94
[2025-03-10] MEDS: IPRATROPIUM BR 0.02% INH SOLN 0.5 MG/2.5 ML VIAL INHALATION ×2 (01:52→09:24)
[2025-03-10] MEDS: DOXYCYCLINE IV 100 MG in SODIUM CHLORIDE 0.9% IV 100 ML IVPB (05:38)
[2025-03-10] MEDS: GABAPENTIN 300 MG CAPSULE PO (05:38)
[2025-03-10] MEDS: VENLAFAXINE HCL 37.5 MG TABLET PO (08:29)
[2025-03-10] MEDS: APIXABAN 5 MG TABLET PO (08:29)
[2025-03-10] MEDS: BENZONATATE 100 MG CAPSULE PO (08:29)
[2025-03-10] MEDS: METOPROLOL SUCCINATE EXT REL 50 MG TABCR PO (08:29)
[2025-03-10] MEDS: LOSARTAN POTASSIUM 50 MG TABLET PO (08:29)
[2025-03-10] MEDS: guaiFENesin 12 HR 600 MG TABCR PO (08:29)
[2025-03-10] MEDS: FLUTICASONE/SALMETEROL 115-21 MCG INHALER 1 PUFF 2 PUFF INHALATION (09:29)
--- NOTE | 2025-03-10 09:47 | PM.DS ---
DS: Admitting Diagnosis Discharge Date 03/08/2020 Admitting Diagnosis Shortness of breath DS: Discharge Diagnosis Discharge Diagnosis (1) Acute and chronic respiratory failure, unspecified whether with hypoxia or hypercapnia: Qualifiers: Respiratory failure complication: hypoxia Qualified Code(s): J96.21 - Acute and chronic respiratory failure with hypoxia Code(s): J96.20 - Acute and chronic respiratory failure, unspecified whether with hypoxia or hypercapnia Status: Acute Assessment and Plan: Patient here with respiratory symptoms and found to have acute on chronic respiratory failure with hypoxia. Patient typically requires 2L nasal cannula at baseline. 86% on her home O2. Now 99% on 4L nasal cannula. Workup significant for RSV. CXR and chest CT reviewed. No evidence of infection however patient does have increased sputum production/changes in sputum with history of COPD, started on prophylactic antibiotics due to this. No current alteration concerning for hypercapnia. - supportive care for RSV - prophylactic antibiotics due to COPD exacerbation/increase sputum production however there is no evidence of infection currently on CXR/CTA - continue supplemental oxygen to maintain O2 sat greater than 92%, may wean to baseline requirement as tolerated - monitor neurologic status - monitor hemodynamic stability (2) COPD exacerbation: Code(s): J44.1 - Chronic obstructive pulmonary disease with (acute) exacerbation Status: Acute Assessment and Plan: Patient here with COPD exacerbation likely related to RSV infection. Reporting increased sputum production and change in sputum quality, now green and thick. - initially placed on DuoNebs isacc, however patient significantly tachycardic. Exchanged to Atrovent/Xopenex isacc. - methylprednisolone IV isacc - continue home medications: - Mucinex isacc (3) SIRS (systemic inflammatory response syndrome): Code(s): R65.10 - Systemic inflammatory response syndrome (SIRS) of non-infectious origin without acute organ dysfunction Status: Acute Assessment and Plan: Patient met SIRS criteria due to HR and RR. However no leukocytosis and no evidence of bacterial infection. Did test positive for RSV and is currently complicated by COPD exacerbation. She has received nebulizers and steroids which may be affecting her heart rate. Low suspicion for bacteremia/sepsis. Will check lactic, if elevated will proceed with blood cultures. Patient is being started on broad-spectrum antibiotics due to her COPD exacerbation. However there is no evidence of pneumonia on CXR or chest CTA. (4) Respiratory syncytial virus (RSV): Qualifiers: RSV infection type: acute bronchitis Qualified Code(s): J20.5 - Acute bronchitis due to respiratory syncytial virus Code(s): B33.8 - Other specified viral diseases Status: Acute Assessment and Plan: Patient here with symptoms for the past 3-4 days/week? Tested positive for RSV on 03/08. Reports family member has had similar symptoms. No current evidence of pneumonia. Complicated by COPD exacerbation. - supportive care including: Mucinex isacc Nebulizers isacc Tylenol p.r.n. Tessalon Perles p.r.n. Steroids isacc IV fluids - currently requiring an increase in supplemental oxygen from her baseline, see above (5) Depression: Qualifiers: Depression Type: unspecified Qualified Code(s): F32.A - Depression, unspecified Code(s): F32.A - Depression, unspecified Status: Acute Assessment and Plan: History of depression and anxiety. Patient reports she has been out of her Venlafaxine for some time. Currently feels she is going through withdrawal citing she has been increasingly shaking, crying more, and having an increase in panic attacks. Of note, patient was admitted from 02/17/2025 to 02/20/2025 during which time she received her anxiety/depression medications. - resume Effexor, will need refill at discharge (6) Atrial fibrillation: Qualifiers: Atrial fibrillation type: unspecified Qualified Code(s): I48.91 - Unspecified atrial fibrillation Code(s): I48.91 - Unspecified atrial fibrillation Status: Chronic Assessment and Plan: Patient has history of atrial fibrillation on Eliquis and metoprolol. Reportedly has not been taking Eliquis for some time. Chest CTA negative for PE. Tachycardic in the emergency department in the 130s, however per EKG sinus tach. - resume home medications: Metoprolol and Eliquis - telemetry monitoring (7) Hypertension: Qualifiers: Hypertension type: primary hypertension Qualified Code(s): I10 - Essential (primary) hypertension Code(s): I10 - Essential (primary) hypertension Status: Chronic Assessment and Plan: - chronic, currently 135/72, stable. - continue home medications: Losartan, metoprolol - monitor (8) Hyperlipidemia: Qualifiers: Hyperlipidemia type: unspecified Qualified Code(s): E78.5 - Hyperlipidemia, unspecified Code(s): E78.5 - Hyperlipidemia, unspecified Status: Chronic Assessment and Plan: - continue home medication:, atorvastatin 80 mg daily (9) Obstructive sleep apnea: Code(s): G47.33 - Obstructive sleep apnea (adult) (pediatric) Status: Chronic Assessment and Plan: - continue home CPAP Plan Patient has been unable to see a provider since her is retired. Currently out of all of her medications except her metoprolol and has a small amount of gabapentin left. Requesting refills of her medications to bridge to finding a new PCP. Diet: Heart healthy GI Prophylaxis: n/a DVT Prophylaxis: Eliquis IV fluids: 2L -> 125 mL/hr Lines/Tubes: pIV Code Status: full code DS: Summary Hospital Course Reason for hospitalization: Shortness of breath Hospital Course: 64 years old female with history of COPD was admitted for shortness of breath. Patient was found to have acute respiratory failure with hypoxia. Patient was given IV antibiotics and culture were done. Patient was also given nebulizer treatment and steroids. Patient got better without any complication. Today patient is feeling better and was discharged home stable condition. Follow-up scheduled. Status at Discharge Cognitive/behavioral status at discharge: Stable Time Spent with Patient Time attestation: Total time spent providing and/or coordinating discharge services: 30 minutes Exam Const: General: comfortable and no acute distress Other: , female, nontoxic appearance HENMT: Face/Nose/Sinus: Normal nares present Mouth: Yes moist mucous membranes Eyes: General: appearance normal, both eyes and all related structures Sclera: sclerae normal Pupils: Equal, round and reactive pupils present EOM: EOMs intact bilaterally Resp: Effort & Inspection: normal respiratory effort Auscultation: clear to auscultation bilaterally Other: Mild tachypnea, no accessory muscle use. Nasal cannula place and tolerating well. No other adventitious lung sounds. Cardio: Rate: tachycardic Rhythm: regular rhythm Other: S1-S2 present without murmur, rub, ectopy GI: Other: Abdomen soft, nondistended, nontender. Normoactive bowel sounds in all quadrants. Skin: General skin exam: normal color and no rashes or lesions noted Wounds: no wounds Neuro: Cranial nerves: Yes Equal, round and reactive pupils present Speech: normal speech Motor exam (neuro): 5/5 motor strength present throughout Sensory Exam: normal sensation Other: A&O x4 Extrem: General: normal to inspection Psych: Mental Status: mental status grossly normal Affect: Anxious affect present Other: Fair insight and judgment, pleasant Discharge Plan Discharge Attending physician on discharge: Erlin Uriostegui Consulting providers: Ran Earl Discharging Clinician: Erlin Uriostegui Patient Disposition: .Default Activity: as tolerated Diet: as tolerated Patient Instructions: Antibiotic Form, Apixaban (By mouth) Patient Language: Lithuanian Stand Alone Forms: General Discharge Information Follow-up/Referrals: Ran Earl MD [Physician, Family Practice] Discharge Medications: New methylprednisolone [Medrol (Baldo)] 4 mg tablets,dose pack See Rx Instructions .ROUTE .COMPLEX Qty: 1 0RF Rx Instructions: for 6 days doxycycline hyclate 100 mg capsule 100 mg PO BID Qty: 14 0RF Continued losartan 50 mg tablet 50 mg PO DAILY Qty: 30 0RF atorvastatin 80 mg tablet 80 mg PO HS Qty: 30 0RF metoprolol succinate 50 mg tablet extended release 24 hr 50 mg PO DAILY Qty: 30 0RF venlafaxine 37.5 mg tablet 37.5 mg PO BID Qty: 60 0RF gabapentin 300 mg capsule 300 mg PO TID Qty: 90 0RF albuterol sulfate 90 mcg/actuation HFA aerosol inhaler 2 puff INHALATION Q6H PRN (Reason: sob) Qty: 1 0RF Eliquis 5 mg tablet 5 mg PO BID Qty: 60 0RF budesonide-formoterol [Symbicort] 160-4.5 mcg/actuation HFA aerosol inhaler 2 puff inhalation Q12H 30 Days Qty: 10.2 5RF Spiriva Respimat 2.5 mcg/actuation mist 2 puff inhalation DAILY 30 Days Qty: 4 5RF Date of admission: 03/09/25 07:58 Primary Care Provider: PHYSICIAN,C[employer] Admitting Provider: Tyree Azevedo Attending physician on admission: Tyree Azevedo Condition: Stable Quality VTE Prophylaxis VTE prophylaxis: pharmacologic ordered
[2025-03-10] MEDS: ALPRAZolam (*CRX) 0.25 MG TABLET PO (11:05)
== END 2025-03-10 13:20 | disposition home or self-care (01) | DRG 145 ==
LOC: ANHED 17:19 → ANH3MEDSUR 17:46 → ANH3MED 21:07
PROVIDERS: Emergency Medicine; Student in an Organized Health Care Education/Training Program; Admitting Provider Internal Medicine; Emergency Provider Emergency Medicine; PCP Internal Medicine; Visit Provider Internal Medicine
DX: J20.5 Acute bronchitis due to respiratory syncytial virus (principal); J44.0 Chronic obstructive pulmonary disease with (acute) lower respiratory infection; J44.1 Chronic obstructive pulmonary disease with (acute) exacerbation; J96.20 Acute and chronic respiratory failure, unspecified whether with hypoxia or hypercapnia; R65.10 Systemic inflammatory response syndrome (SIRS) of non-infectious origin without acute organ dysfunction; I10 Essential (primary) hypertension; I48.20 Chronic atrial fibrillation, unspecified; I73.9 Peripheral vascular disease, unspecified; I25.10 Atherosclerotic heart disease of native coronary artery without angina pectoris; E78.5 Hyperlipidemia, unspecified; G47.33 Obstructive sleep apnea (adult) (pediatric); F41.9 Anxiety disorder, unspecified; F32.A Depression, unspecified; Z99.81 Dependence on supplemental oxygen; Z86.718 Personal history of other venous thrombosis and embolism; Z87.891 Personal history of nicotine dependence; Z79.01 Long term (current) use of anticoagulants
CPT/HCPCS: 36415; 71045; 71275; 80053; 83605; 83880; 84484; 85025; 87637; 93005; 94640; 96361; 96365; 96367; 96375; 99285; A9270; G0378; G0379; J0696; J2919; J7030; J7120; Q9967